=== PATIENT | female | born 1950 | race Caucasian/White ===

== ENCOUNTER 2016-02-22 10:36 | Outpatient (RCR) | payer MEDICARE ==
[~2016-02-22 10:36] MED LIST: ALB0.5V IH; ALBU0.8322 IH; ALBU17AE23 IH; ALBU17AE3 IH; ALPR0.25 PO; ALPR0.5T PO; ASP81CT PO; ASPI-875 PO; ATOR10TA66 PO; ATOR20TA66 PO; ATR20T PO; ATRV10T PO; Atorvastatin Calcium PO; BUDE1AMP IH; CALCIUM 600MG PO; CHOL100061 PO; CIPR500T78 PO; CLOP75TA PO; DESV50TA PO; DICY20TA10 PC; DICY20TA10 PO; DXCC100C PO; GUAI10SY4 PO; HYDROXYTRYPTOPHAN PO; IPRA3AMP IH; IPRA3AMP11 INH; ISM30TCR PO; ISOS60TA3 PO; LEVO500T2 PO; LEVO500T80 PO; METH4TAB PO; METO25TA2 PO; MONT10TA24 PO; NCT21TD TD; NTR.4SL SL; OMG1KC PO; OXYB5TAB9 PO; PNT40TEC PO; PRD20T PO; PRED5TAB PO; RT-SYMBINH IH
== END 2016-05-22 | disposition home or self-care (01) ==
LOC: PULM 10:36
PROVIDERS: ATTEND Nurse Practitioner Family
DX: J44.9 Chronic obstructive pulmonary disease, unspecified (principal); R09.02 Hypoxemia
CPT/HCPCS: 99211

== ENCOUNTER → 2016-05-05 | Outpatient (CLI) | payer MEDICARE ==
[~2016-05-05] MED LIST changes: +ASCO-262 PO; +CETI10TA17 PO; +CLON0.2T PO; +DESV100T PO; +DONE10TA41 PO; +FERR-84 PO; +FOLI0.4T2 PO; +LORA0.5T PO; +MAGN250T13 PO; +PANT40TA2 PO; +PRD10T PO
--- NOTE | 2016-05-05 18:18 | Diagnostic Imaging Report ---
PA and lateral views of the chest. INDICATION: Chronic shortness of breath. Mid back pain. FINDINGS: The lungs are hyperinflated but clear. The heart size is normal. No effusion or pneumothorax. The mediastinum and chris appear unremarkable. IMPRESSION: Hyperinflated clear lungs. Dictated by: Dictated on workstation # [id number]
== END ==
LOC: RAD 14:07
PROVIDERS: ATTEND Nurse Practitioner Family
DX: J44.9 Chronic obstructive pulmonary disease, unspecified (principal); J40 Bronchitis, not specified as acute or chronic; R06.02 Shortness of breath; Z72.0 Tobacco use
CPT/HCPCS: 71020; 87804

== ENCOUNTER → 2016-05-24 | Outpatient (CLI) | payer MEDICARE ==
--- NOTE | 2016-05-26 19:03 | Diagnostic Imaging Report ---
Bilateral screening mammogram The current study was also evaluated with a Computer Aided Detection (CAD) system. INDICATION: Screening. No current complaints stated on the questionnaire. COMPARISON: 05/21/2013. FINDINGS: The breasts are composed of heterogenously dense parenchyma which may decrease mammographic sensitivity. There are occasional benign-appearing calcifications seen. Allowing for technique and positional differences, no suspicious change is seen. IMPRESSION: Dense breasts with no definite change. ACR BI-RADS Category 2: Benign findings. Result letter will be mailed to the patient. Note: At least 10% of breast cancer is not imaged by mammography. Dictated by: Dictated on workstation # [id number]
== END ==
LOC: RAD 11:23
PROVIDERS: ATTEND Nurse Practitioner Community Health
DX: Z12.31 Encounter for screening mammogram for malignant neoplasm of breast (principal)
CPT/HCPCS: 77067

== ENCOUNTER 2016-06-29 11:29 | Outpatient (RCR) | payer MEDICARE ==
[~2016-06-29 11:29] MED LIST changes: -ASCO-262 PO; -CETI10TA17 PO; -CLON0.2T PO; -DESV100T PO; -DONE10TA41 PO; -FERR-84 PO; -FOLI0.4T2 PO; -LORA0.5T PO; -MAGN250T13 PO; -PANT40TA2 PO; -PRD10T PO
[2016-06-29 11:48] LABS: BASOPHILS # (AUTO) 0.1 10^3/uL (0.0-0.1); BASOPHILS % (AUTO) 1 % (0-10); EOSINOPHILS # (AUTO) 0.2 10^3/uL (0.0-0.3); EOSINOPHILS % (AUTO) 2 % (0-10); LYMPHOCYTES # (AUTO) 0.7 X 10^3 (1.0-4.0); LYMPHOCYTES % (AUTO) 5 % (12-44); MEAN CORPUSCULAR HEMOGLOBIN 23 PG (25-34); MEAN CORPUSCULAR HGB CONC 30 G/DL (32-36); MEAN CORPUSCULAR VOLUME 78 FL (80-99); MEAN PLATELET VOLUME 8.4 FL (7.4-10.4); MONOCYTES # (AUTO) 0.8 X 10^3 (0.0-1.0); MONOCYTES % (AUTO) 5 % (0-12); NEUTROPHILS # (AUTO) 12.8 X 10^3 (1.8-7.8); NEUTROPHILS % (AUTO) 88 % (42-75); PLATELET COUNT 566 10^3/uL (130-400); RED BLOOD COUNT 3.67 10^6/uL (4.35-5.85); WHITE BLOOD COUNT 14.6 10^3/uL (4.3-11.0)
[2016-06-29 12:09] LABS: ALANINE AMINOTRANSFERASE 15 U/L (0-55); ALBUMIN 3.9 G/DL (3.2-4.5); ANION GAP 12 MMOL/L (5-14); ASPARTATE AMINO TRANSFERASE 18 U/L (5-34); BILIRUBIN,TOTAL 0.2 MG/DL (0.1-1.0); BLOOD UREA NITROGEN 14 MG/DL (7-18); BUN/CREATININE RATIO 20; CALCIUM 9.4 MG/DL (8.5-10.1); CARBON DIOXIDE 22 MMOL/L (21-32); CHLORIDE 101 MMOL/L (98-107); CREATININE SERUM 0.71 MG/DL (0.60-1.30); GFR ESTIMATED > 60; GLUCOSE 108 MG/DL (70-105); POTASSIUM 4.1 MMOL/L (3.6-5.0); SODIUM 135 MMOL/L (135-145); TOTAL PROTEIN 6.7 G/DL (6.4-8.2)
[2016-06-29 12:11] LABS: ANISOCYTOSIS SLIGHT; BAND NEUTROPHILS 0 %; BASOPHILS % (MANUAL) 0 %; EOSINOPHILS % (MANUAL) 3 %; LYMPHOCYTES % (MANUAL) 5 %; NEUTROPHILS % (MANUAL) 85 %
--- NOTE | 2016-06-29 14:42 | Diagnostic Imaging Report ---
INDICATION: COPD, hypoxemia, history of tobacco use.. TECHNIQUE: Two view chest 12:12 PM. CORRELATION STUDY: 05/05/2016. FINDINGS: The heart size, mediastinal configuration, and pulmonary vasculature are within normal limits. The lung morgan are hyperinflated with changes of COPD. No infiltrate. Very mild S-type curvature of the thoracic spine. IMPRESSION: Hyperinflated lung morgan. Negative for acute abnormality. Dictated by: Dictated on workstation # [id number]
[2016-07-28] MEDS ORDERED: ASCO-262 PO (15:53)
[2016-07-28] MEDS ORDERED: DONE10TA41 PO (15:53)
[2016-07-28] MEDS ORDERED: CLON0.2T PO (15:53)
[2016-07-28] MEDS ORDERED: MONT10TA24 PO (15:53)
[2016-07-28] MEDS ORDERED: PRD10T PO (15:53)
[2016-07-28] MEDS ORDERED: MAGN250T13 PO (15:53)
[2016-07-28] MEDS ORDERED: FOLI0.4T2 PO (15:53)
[2016-07-28] MEDS ORDERED: LORA0.5T PO (15:53)
[2016-07-28] MEDS ORDERED: DESV100T PO (15:53)
[2016-07-28] MEDS ORDERED: FERR-84 PO (15:53)
[2016-07-28] MEDS ORDERED: CETI10TA17 PO (15:53)
[2016-08-01] MEDS ORDERED: PANT40TA2 PO (08:27)
== END 2016-09-27 | disposition home or self-care (01) ==
LOC: LAB 11:29
PROVIDERS: ATTEND Nurse Practitioner Family
DX: J44.9 Chronic obstructive pulmonary disease, unspecified (principal); R09.02 Hypoxemia; R06.00 Dyspnea, unspecified; Z72.0 Tobacco use
CPT/HCPCS: 36415; 71020; 80053; 85007; 85027; 87070; 87205

== ENCOUNTER 2016-07-28 05:49 | Outpatient (CLI) | payer MEDICARE ==
[~2016-07-28] VITALS: Ht 160 cm; Wt 59.0 kg
[2016-07-28] MEDS ORDERED: FERR-84 PO (15:53)
[2016-07-28] MEDS ORDERED: FOLI0.4T2 PO (15:53)
[2016-07-28] MEDS ORDERED: LORA0.5T PO (15:53)
[2016-07-28] MEDS ORDERED: MAGN250T13 PO (15:53)
[2016-07-28] MEDS ORDERED: ASCO-262 PO (15:53)
[2016-07-28] MEDS ORDERED: DONE10TA41 PO (15:53)
[2016-07-28] MEDS ORDERED: DESV100T PO (15:53)
[2016-07-28] MEDS ORDERED: PRD10T PO (15:53)
[2016-07-28] MEDS ORDERED: CETI10TA17 PO (15:53)
[2016-07-28] MEDS ORDERED: CLON0.2T PO (15:53)
[2016-07-28] MEDS ORDERED: MONT10TA24 PO (15:53)
== END 2016-07-28 15:54 ==
LOC: PREOP 05:49
PROVIDERS: ATTEND Surgery
DX: Z01.818 Encounter for other preprocedural examination (principal); D50.9 Iron deficiency anemia, unspecified; K92.1 Melena

== ENCOUNTER 2016-08-01 07:08 | Day surgery (SDC) | payer MEDICARE ==
[~2016-08-01] VITALS: Ht 160 cm; Wt 59.0 kg
[~2016-08-01 07:08] MED LIST changes: +ASCO-262 PO; +CETI10TA17 PO; +CLON0.2T PO; +DESV100T PO; +DONE10TA41 PO; +FERR-84 PO; +FOLI0.4T2 PO; +LORA0.5T PO; +MAGN250T13 PO; +PRD10T PO
[2016-08-01] MEDS ORDERED: NS IV 500 ML 500 ML ONE (07:20)
[2016-08-01 07:25] VITALS: BP 95/70
[2016-08-01] MEDS ORDERED: NALOXONE 0.4 MG/ML 1 ML (NARCAN) VIAL IVP PRN (07:30)
[2016-08-01] MEDS ORDERED: NS IV 500 ML 500 ML IV ONE (07:30)
[2016-08-01] MEDS ORDERED: FLUMAZENIL (ROMAZICON) 0.1 MG/ML 5 ML VIAL INJ PRN (07:30)
[2016-08-01] MEDS ORDERED: fentaNYL INJECTION 100 MCG/2 ML AMP ONE ×2 (07:48)
[2016-08-01] MEDS ORDERED: HURRICAINE EXT TUBE (BENZOCAINE) ONE (07:49)
[2016-08-01] MEDS ORDERED: MIDAZOLAM 2 MG/2 ML (VERSED) VIAL ONE ×7 (07:49→07:58)
[2016-08-01] MEDS: fentaNYL INJECTION 100 MCG/2 ML AMP IVP PRN ×4 (07:53→08:14)
[2016-08-01] MEDS: MIDAZOLAM 2 MG/2 ML (VERSED) VIAL IVP PRN ×5 (07:54→08:13)
--- NOTE | 2016-08-01 07:55 | Conscious Sedation/ASA ---
Conscious Sedation Pre-Proced ASA Class: 3 Airway Mallampati Classification: ([place] appropriate class) I. II. III, IV Lungs Heart ASA score ASA 1: a normal healthy patient ASA 2: a patient with a mild systemic disease (mid diabetes, controlled hypertension, obesity ASA 3: a patient with a severe systemic disease that limits activity (angina , COPD, prior Myocardial infarction) ASA 4: a patient with an incapacitating disease that is a constant threat to life (CHF, renal failure) ASA 5: a moribund patient not expected to survive 24 hrs. (ruptured aneurysm) ASA 6: a declared brain patient whose organs are being harvested. For emergent operations, add the letter E after the classification Grade 2 Sedation Plan: Discussed options with patient/fam Note The patient is an appropriate candidate to undergo the planned procedure, sedation, and anesthesia. The patient immediately re-assessed prior to indication. DANYA GAO MD Aug 01, 2016 7:55 am
--- NOTE | 2016-08-01 08:25 | Endoscopy Procedure Report ---
Endoscopy Report Date: Aug 01, 2016 Preoperative Diagnosis: anemia. He medication. Personal history of polyps Study Performed: Upper Endoscopy, Colonoscopy Procedure Instrument: Endoscope Endo Procedure/Findings Findings 1.: Diverticulosis, Hiatal Hernia, Gastric Ulcer, Gastritis Recommendations: Recommendations: 1.: Colonscopy in 5 years Copy Copies To 1: ANA FISCHER XAVIER M MD Aug 01, 2016 8:25 am
[2016-08-01] MEDS ORDERED: PANT40TA2 PO (08:27)
--- NOTE | 2016-08-01 08:28 | Discharge Inst-Simple/Standard ---
Discharge Inst-Standard Discharge Medications New, Converted or Re-Newed RX: RX on Chart Patient Instructions/Follow Up Plan of Care/Instructions/FU: follow-up with her primary. To avoid nonsteroidals. Screening colonoscopy in 5 years Activity as Tolerated: Yes Discharge Diet: No Restrictions DANYA GAO MD Aug 01, 2016 8:28 am
[2016-08-01] MEDS ORDERED: HURRICAINE EXT TUBE (BENZOCAINE) XX ONE (08:45)
[2016-08-01 08:50] VITALS: BP 116/72
[2016-08-01 09:20] VITALS: BP 107/73
[2016-08-01 09:25] VITALS: BP 107/73
--- NOTE | 2016-08-01 10:20 | OPERATIVE REPORT ---
PROCEDURE PHYSICIAN: DANYA GAO DATE OF PROCEDURE: 08/01/2016 PROCEDURES: 1. Upper GI endoscopy with antral biopsy. 2. Colonoscopy. SURGEON: Dr. Gao. INDICATION FOR THE PROCEDURE: This lady came in for an upper endoscopy, along with colonoscopy, to evaluate iron deficiency anemia with hematochezia. In addition, she has a personal history of colon polyps as well. Informed consent was obtained after reviewing the procedures in detail. DESCRIPTION OF PROCEDURE: 1. UPPER GI ENDOSCOPY/ANTRAL BIOPSY: She was placed in left lateral decubitus position and her vital signs were monitored. Conscious sedation was achieved using Versed and fentanyl. The flexible gastroscope was then introduced down the esophagus, past the stomach, into the proximal duodenum. FINDINGS: ESOPHAGUS: An uncomplicated hiatal hernia. STOMACH: 1. Multiple distal gastric ulcers and erosions with surrounding erythema were found. Photodocumentation and biopsy for Helicobacter status were obtained. 2. Distal gastritis in a streaky fashion was also discovered. DUODENUM: Normal. She tolerated the procedure well and was turned around in preparation for colonoscopy. IMPRESSION: 1. Heme-positive stools with iron deficiency anemia. 2. Multiple gastric ulcers and erosions. 2. COLONOSCOPY: Digital rectal examination was unremarkable. The colonoscope was then introduced into the rectum and advanced all the way up to the cecum. The quality of bowel preparation was excellent. The scope was then withdrawn slowly and the mucosa examined in a systematic fashion. FINDINGS: 1. Very few sigmoid diverticula. 2. No recurrent polyps were found. She tolerated the procedures well and was taken back to the nursing area in a stable condition. IMPRESSION: 1. Iron deficiency anemia. 2. Multiple gastric ulcers and erosions. We will treat conservatively. With regard to polyp surveillance, screening colonoscopy in 5 years would be reasonable. Job ID: [id number] Dictated Date: 08/01/2016 08:23:59 Disbursing Officer Date: 08/01/2016 10:10:47 / hari SANTIAGO
== END 2016-08-01 09:25 | disposition home or self-care (01) ==
LOC: ENDO 07:08
PROVIDERS: ATTEND Surgery
DX: K25.9 Gastric ulcer, unspecified as acute or chronic, without hemorrhage or perforation (principal); K57.90 Diverticulosis of intestine, part unspecified, without perforation or abscess without bleeding; K44.9 Diaphragmatic hernia without obstruction or gangrene; K29.70 Gastritis, unspecified, without bleeding; D50.9 Iron deficiency anemia, unspecified; Z86.010 Personal history of colon polyps
CPT/HCPCS: 88305

== ENCOUNTER → 2016-09-02 | Outpatient (CLI) | payer MEDICARE ==
[~2016-09-02] MED LIST changes: +CATHETER FLUSH 10 ML SYR IV PRN; +IOHEXOL 350 MG/ML 100 ML (OMNIPAQUE 350) VIAL IV ONE; +NS 100 ML (IVPB) BAG IV ONE; +PANT40TA2 PO
--- NOTE | 2016-09-02 08:48 | Diagnostic Imaging Report ---
PROCEDURE: CT abdomen and pelvis with contrast. TECHNIQUE: Multiple contiguous axial images were obtained through the abdomen and pelvis after administration of intravenous contrast. INDICATION: Left upper quadrant pain. 100 mL of Omnipaque 350 is administered intravenously. FINDINGS: The lung bases demonstrate no significant consolidation. The liver, the spleen, and the adrenals appear unremarkable. There is a 5-mm hypodense lesion in the pancreatic head also seen on 08/24/2015, exam too small to accurately characterize. Cholecystectomy clips are seen. The kidneys have symmetric enhancement and contrast excretion. Multiple simple-appearing cysts are seen. There is no hydronephrosis. The abdominal aorta is normal in caliber. No para-aortic significantly enlarged lymph node is seen. There is no significant free fluid or fluid collection in the abdomen or pelvis. There is suggestion of prior hysterectomy. The appendix appears normal. No bowel obstruction. There is diverticulosis in the sigmoid colon. No diverticulitis. Surgical clips in the right side of the pelvis are seen. The osseous structures demonstrate degenerative changes in the SI joints. IMPRESSION: 1. Diverticulosis, no diverticulitis. 2. A 5-mm hypodense lesion in the pancreatic head too small to accurately characterize. When correlated with 08/24/2015, exam it appears to be present although less prominent, possibly representing a small cystic lesion. Consider followup study in six months to observe this lesion. Dictated by: Dictated on workstation # [id number]
== END ==
LOC: RAD 07:52
PROVIDERS: ATTEND Nurse Practitioner Community Health
DX: R10.12 Left upper quadrant pain (principal); J44.9 Chronic obstructive pulmonary disease, unspecified; D50.9 Iron deficiency anemia, unspecified; K57.30 Diverticulosis of large intestine without perforation or abscess without bleeding; K86.89 Other specified diseases of pancreas
CPT/HCPCS: 74177

== ENCOUNTER → 2016-09-23 | Outpatient (CLI) | payer MEDICARE ==
[~2016-09-23] MED LIST changes: -CATHETER FLUSH 10 ML SYR IV PRN; -IOHEXOL 350 MG/ML 100 ML (OMNIPAQUE 350) VIAL IV ONE; -NS 100 ML (IVPB) BAG IV ONE
--- NOTE | 2016-09-23 16:03 | Diagnostic Imaging Report ---
INDICATION: Shortness of breath, exacerbation of COPD. EXAMINATION: PA and lateral chest. FINDINGS: There are emphysematous changes in the lungs. Heart size and pulmonary vascularity are normal. Lungs are clear. There are no effusions or pneumothoraces. IMPRESSION: No acute abnormalities of the chest. Dictated by: Dictated on workstation # [id number]
== END ==
LOC: RAD 12:41
PROVIDERS: ATTEND Nurse Practitioner Family
DX: J44.1 Chronic obstructive pulmonary disease with (acute) exacerbation (principal)
CPT/HCPCS: 71020

== ENCOUNTER → 2016-11-22 | Outpatient (CLI) | payer MEDICARE ==
--- NOTE | 2016-11-22 14:14 | Diagnostic Imaging Report ---
EXAMINATION: PA and lateral views of the chest. INDICATION: Bronchitis. Cough. FINDINGS: The lungs are clear. The heart size is normal. There is no effusion or pneumothorax. The mediastinum and chris appear unremarkable. IMPRESSION: Unremarkable exam. Dictated by: Dictated on workstation # [id number]
== END ==
LOC: RAD 12:31
PROVIDERS: ATTEND Nurse Practitioner Family
DX: R06.02 Shortness of breath (principal); R06.00 Dyspnea, unspecified; R09.02 Hypoxemia; J30.9 Allergic rhinitis, unspecified; Z72.0 Tobacco use
CPT/HCPCS: 71020

== ENCOUNTER → 2017-03-20 | Outpatient (CLI) | payer MEDICARE ==
[~2017-03-20] MED LIST changes: +CATHETER FLUSH 10 ML SYR IV PRN; +IOHEXOL 350 MG/ML 150 ML (OMNIPAQUE 350) VIAL IV ONE; +NS 100 ML (IVPB) BAG IV ONE
[2017-03-20 15:13] LABS: ABG BASE EXCESS 0.7 MMOL/L (-2.5-2.5); ABG HCO3 24 MMOL/L (23-27); ABG OXYGEN SATURATION 96 % (94-100); ABG PCO2 36 MMHG (35-45); ABG PH 7.45 (7.37-7.43); ABG PO2 67 MMHG (79-93); ABG TCO2 25.5 MMOL/L (21.0-31.0)
[2017-03-20 15:14] LABS: ALLENS TEST YES-POS; PATIENT TEMP 98.4
[2017-03-20 15:38] LABS: BLOOD UREA NITROGEN 8 MG/DL (7-18); BUN/CREATININE RATIO 12; CREATININE SERUM 0.68 MG/DL (0.60-1.30); GFR ESTIMATED > 60
--- NOTE | 2017-03-20 20:02 | Diagnostic Imaging Report ---
PROCEDURE: CT angiography of the chest with contrast. TECHNIQUE: Multiple contiguous axial images were obtained through the chest after uneventful bolus administration of intravenous contrast. Reconstructed CTA MIP acquisitions were also performed. INDICATION: Shortness of breath. Dyspnea. 125 mL of Omnipaque 350 is administered intravenously. FINDINGS: The pulmonary arteries demonstrate good opacification with contrast with no filling defects seen to suggest pulmonary embolism. The thoracic aorta is normal in caliber. No para-aortic significantly enlarged lymph node is seen. The heart size is normal. No pericardial or pleural effusion. There is no hilar, mediastinal, or axillary lymphadenopathy seen. The lungs demonstrate no significant consolidation, mass, or suspicious nodule. There are advanced emphysema changes seen. There is a right middle lobe large bulla measuring 4.7 cm in size. Sections of the upper abdomen appear grossly unremarkable. The osseous structures appear unremarkable. IMPRESSION: 1. Advanced emphysema. 2. No evidence of pulmonary embolism. Dictated by: Dictated on workstation # [id number]
== END ==
LOC: RAD 14:45
PROVIDERS: ATTEND Nurse Practitioner Family
DX: J43.9 Emphysema, unspecified (principal); J96.20 Acute and chronic respiratory failure, unspecified whether with hypoxia or hypercapnia; Z72.0 Tobacco use
CPT/HCPCS: 36415; 71275; 82565; 82805; 84520

== ENCOUNTER 2017-06-24 11:13 | Inpatient (IN) | payer MEDICARE ==
[~2017-06-24] VITALS: Ht 162.6 cm; Wt 66.8 kg
[~2017-06-24 11:13] MED LIST changes: -CATHETER FLUSH 10 ML SYR IV PRN; -IOHEXOL 350 MG/ML 150 ML (OMNIPAQUE 350) VIAL IV ONE; -NS 100 ML (IVPB) BAG IV ONE
[2017-06-24] MEDS ORDERED: RT-ALBUTEROL/IPRATROPIUM 3 ML (DUONEB) VIAL ONE ×2 (11:21→11:30)
[2017-06-24] MEDS ORDERED: LORazepam INJ 2 MG/ML (ATIVAN) VIAL ONE (11:27)
[2017-06-24] MEDS ORDERED: methylPREDNISolone 125 MG (Solu-MEDROL) VIAL IV STA (11:27)
[2017-06-24] MEDS ORDERED: methylPREDNISolone 125 MG (Solu-MEDROL) VIAL ONE (11:28)
[2017-06-24] MEDS ORDERED: RT-ALBUTEROL SULF 2.5 MG/3 ML PRE-MIX VIAL ONE ×2 (11:29→11:35)
[2017-06-24] MEDS ORDERED: RT-ALBUTEROL/IPRATROPIUM 3 ML (DUONEB) VIAL INH ONE ×2 (11:30→12:00)
[2017-06-24] MEDS ORDERED: LORazepam INJ 2 MG/ML (ATIVAN) VIAL IVP ONE (11:30)
[2017-06-24 11:45] LABS: BASOPHILS # (AUTO) 0.1 10^3/uL (0.0-0.1); BASOPHILS % (AUTO) 0 % (0-10); EOSINOPHILS # (AUTO) 0.1 10^3/uL (0.0-0.3); EOSINOPHILS % (AUTO) 1 % (0-10); HEMATOCRIT 37 % (35-52); HEMOGLOBIN 12.1 G/DL (11.5-16.0); LYMPHOCYTES % (AUTO) 6 % (12-44); MEAN CORPUSCULAR HEMOGLOBIN 27 PG (25-34); MEAN CORPUSCULAR HGB CONC 33 G/DL (32-36); MEAN CORPUSCULAR VOLUME 83 FL (80-99); MEAN PLATELET VOLUME 8.9 FL (7.4-10.4); MONOCYTES # (AUTO) 1.8 X 10^3 (0.0-1.0); MONOCYTES % (AUTO) 10 % (0-12); NEUTROPHILS # (AUTO) 14.5 X 10^3 (1.8-7.8); NEUTROPHILS % (AUTO) 83 % (42-75); PLATELET COUNT 442 10^3/uL (130-400); RED BLOOD COUNT 4.46 10^6/uL (4.35-5.85); RED CELL DISTRIBUTION WIDTH 19.2 % (10.0-14.5); WHITE BLOOD COUNT 17.5 10^3/uL (4.3-11.0)
[2017-06-24 11:49] LABS: PROTHROMBIN TIME PATIENT 13.1 SEC (12.2-14.7)
[2017-06-24 11:57] LABS: ALANINE AMINOTRANSFERASE 13 U/L (0-55); ALBUMIN 3.9 GM/DL (3.2-4.5); ALKALINE PHOSPHATASE 64 U/L (40-136); BILIRUBIN,TOTAL 0.2 MG/DL (0.1-1.0); BUN/CREATININE RATIO 16; CALCIUM 8.7 MG/DL (8.5-10.1); CARBON DIOXIDE 22 MMOL/L (21-32); CHLORIDE 98 MMOL/L (98-107); CREATINE KINASE 49 U/L (29-168); GFR ESTIMATED > 60; GLUCOSE 111 MG/DL (70-105); MAGNESIUM 1.8 MG/DL (1.8-2.4); POTASSIUM 3.9 MMOL/L (3.6-5.0); SODIUM 130 MMOL/L (135-145); TOTAL PROTEIN 6.5 GM/DL (6.4-8.2)
[2017-06-24 11:59] LABS: ABG OXYGEN SATURATION 85 % (94-100); ABG PCO2 41 MMHG (35-45); ABG PH 7.41 (7.37-7.43); ABG PO2 54 MMHG (79-93); ABG TCO2 25.8 MMOL/L (21.0-31.0)
[2017-06-24 12:00] LABS: ALLENS TEST POSITIVE; INSPIRED O2 BIPAP 30%; PATIENT TEMP 102.6; VENTILATOR NO
[2017-06-24] MEDS ORDERED: RT-ALBUTEROL SULF 2.5 MG/3 ML PRE-MIX VIAL INH ONE (12:00)
--- NOTE | 2017-06-24 12:01 | Diagnostic Imaging Report ---
INDICATION: Shortness of breath. Comparison: 11/22/2016 Findings: Upright portable view of the chest is obtained. Heart size is normal. The pulmonary vessels appear unremarkable. There is no pneumothorax, mediastinal widening or pleural fluid. Lungs are clear. Impression: No acute abnormality is detected. Dictated by: Dictated on workstation # [id number]
[2017-06-24 12:04] VITALS: BP 129/80
[2017-06-24] MEDS ORDERED: ACETAMINOPHEN 500 MG TAB (TYLENOL) PO ONE (12:15)
[2017-06-24] MEDS ORDERED: CEFEPIME INJECTION 2,000 MG in NS (IVPB) 100 ML IV ONE (12:15)
[2017-06-24] MEDS ORDERED: IBUPROFEN 800 MG (MOTRIN) TAB PO ONE (12:15)
[2017-06-24 12:17] LABS: CREATINE KINASE MB 1.7 NG/ML (<6.6); TSH (THYROID ANALYZER) 0.64 UIU/ML (0.35-4.94)
[2017-06-24 12:58] LABS: ABG BASE EXCESS 0.6 MMOL/L (-2.5-2.5); ABG OXYGEN SATURATION 90 % (94-100); ABG PCO2 42 MMHG (35-45); ABG PH 7.39 (7.37-7.43); ABG PO2 62 MMHG (79-93)
[2017-06-24 12:59] LABS: NEUTROPHILS % (MANUAL) 93 %
[2017-06-24 13:00] LABS: EOSINOPHILS % (MANUAL) 3 %; LYMPHOCYTES % (MANUAL) 2 %; MONOCYTES % (MANUAL) 2 %; RBC MORPH NORMAL
[2017-06-24 13:02] LABS: ALLENS TEST POSITIVE; INSPIRED O2 50% BIPAP; VENTILATOR NO
[2017-06-24 13:03] LABS: PATIENT TEMP 100.9
--- NOTE | 2017-06-24 13:28 | ED Respiratory ---
General Chief Complaint: Respiratory Problems Stated Complaint: ACUTE RESPIRATORY FAILURE, COPD Nursing Triage Note: Pt. daughter advises that the patient began experiencing shortness of breath last night that has become progressively worse. Pt. has a hx. of COPD and wears home 02. Source: patient (LIMITED HISTORIAN DUE TO SHORTNESS OF BREATH), family ( DAUGHTER DOES MOST OF TALKING FOR PT, ALSO GIVES INFORMATION) Exam Limitations: clinical condition History of Present Illness Date Seen by Provider: Jun 24, 2017 Time Seen by Provider: 11:27 Initial Comments PT ARRIVES VIA POV FROM HOME PT WITH COPD, AND DAUGHTER STATES "IT'S BEEN PRETTY BAD LATELY--FOR THE LAST SEVERAL MONTHS" PT HAS HAD PRODUCTIVE COUGH WITH COLORED SPUTUM FOR OVER A WEEK PT HAS HAD INCREASED SHORTNESS OF BREATH THIS WEEK AND ESPECIALLY SINCE LAST NIGHT, AND SHE WOKE HER UP AT 0500 THIS AM DUE TO PROBLEMS BREATHING PT HAD TEMP OF 102.6 ON ARRIVAL, SHE AND FAMILY WERE UNAWARE THAT SHE HAD FEVER NO SWELLING IN LEGS/ FEET OR PAIN IN CALVES PT STILL SMOKES 1-2 PPD PT IS ON DAILY PREDNISONE FOR COPD PT IS ALSO ON HOME O2 AT 2L/NC PT HAS NEVER BEEN ON VENTILATOR PT USED NEBULIZER AROUND 0500 TODAY PT WAS ON ANTIBIOTICS LAST WEEK FOR UTI, NAME UNKNOWN, FINISHED A FEW DAYS AGO PCP: DR. YORK, SYSTEMS INTEGRATION MANAGER CASEY SIMPSON AT [facility] SCIENCE WRITER: DR. GILL Allergies and Home Medications Allergies Coded Allergies: tramadol (Unverified Allergy, Mild, 07/08/13) Penicillins (Verified Allergy, Unknown, 07/08/13) Sulfa (Sulfonamide Antibiotics) (Verified Allergy, Unknown, 07/08/13) sumatriptan (Verified Allergy, Unknown, 07/08/13) Home Medications Albuterol 17 Gm Inh, 2 PUFF IH QID PRN for SHORTNESS OF BREATH, (Reported) NEEDED FOR SHORTNESS OF BREATH Albuterol Sulfate 2.5 Mg/0.5 Ml Vial.neb, 2.5 MG IH Q4H PRN for SHORTNESS OF BREATH Prescribed by: LEIGH TORRES on 03/16/15 0819 Albuterol/Ipratropium 3 Ml Nebu, 3 ML INH RTQ4HR Prescribed by: TARIQ CERRATO on 07/09/13 1239 Ascorbate Calcium 500 Mg Tablet, 500 MG PO DAILY, (Reported) Aspirin 81 Mg Tablet.dr, 81 MG PO HS, (Reported) Budesonide/Formoterol Fumarate 1 Puff Puff, 2 PUFF IH RTBID Prescribed by: TARIQ CERRATO on 07/09/13 1239 Cetirizine HCl 10 Mg Tablet, 10 MG PO DAILY, (Reported) Clonidine HCl 0.2 Mg Tablet, 0.2 MG PO DAILY, (Reported) Clopidogrel Bisulfate 75 Mg Tablet, 75 MG PO DAILY, (Reported) Desvenlafaxine Succinate 100 Mg Tab.er.24h, 100 MG PO DAILY, (Reported) Donepezil HCl 10 Mg Tablet, 10 MG PO DAILY, (Reported) Ferrous Sulfate 325 Mg Tablet, 650 MG PO DAILY, (Reported) take 2 (325mg) tabs Folic Acid 0.4 Mg Tablet, 0.4 MG PO DAILY, (Reported) Ipratropium/Albuterol Sulfate 3 Ml Ampul.neb, 3 ML IH Q8H PRN for SHORTNESS OF BREATH Prescribed by: LEIGH TORRES on 03/16/15 0819 Isosorbide Mononitrate 30 Mg Tablet, 30 MG PO DAILY, (Reported) Lorazepam 0.5 Mg Tablet, 0.5 MG PO BID, (Reported) Magnesium Oxide 250 Mg Tablet, 250 MG PO BID, (Reported) Metoprolol Tartrate 25 Mg Tablet, 25 MG PO BID, (Reported) Montelukast Sodium 10 Mg Tablet, 10 MG PO HS, (Reported) Nitroglycerin 0.4 Mg Subl, 0.4 MG SL UD PRN for CHEST PAIN, (Reported) TAKE 1 TABLET NEEDED FOR CHEST PAIN EVERY 5 MIN X 3 DOSES Pantoprazole Sodium 40 Mg Tablet.dr, 40 MG PO DAILY Prescribed by: DANYA GAO on 08/01/16 0827 Prednisone 10 Mg Tab, 10 MG PO DAILY, (Reported) Constitutional: see HPI, malaise, weakness EENTM: no symptoms reported Respiratory: see HPI, cough, dyspnea on exertion, phlegm, short of breath Cardiovascular: no symptoms reported, No chest pain, No edema, No palpitations , No syncope Gastrointestinal: no symptoms reported Genitourinary: no symptoms reported Musculoskeletal: no symptoms reported Skin: no symptoms reported Psychiatric/Neurological: No Symptoms Reported Hematologic/Lymphatic: No Symptoms Reported Immunological/Allergic: no symptoms reported Past Mcrtivp-Imsspo-Vyrqjy Hx Patient Social History Alcohol Use: Denies Use Recreational Drug Use: No Smoking Status: Current Everyday Smoker (1-2 PPD) Type Used: Cigarettes (1-2 PPD) Recent Foreign Travel: No Contact w/Someone Who Travel: No Recent Infectious Disease Expo: No Recent Hopitalizations: No Physical Abuse: No Sexual Abuse: No Immunizations Up To Date Date of Pneumonia Vaccine: Oct 08, 2002 Seasonal Allergies Seasonal Allergies: Yes Surgeries History of Surgeries: Yes Surgeries: Adenoidectomy, Breast, Cardiac, Coronary Stent, Hysterectomy, Oophorectomy, Tonsillectomy Respiratory Respiratory Disorders: Asthma, Chronic Bronchitis, COPD Currently Using CPAP: No Currently Using BIPAP: No Cardiovascular Cardiac Disorders: Coronary Artery Disease Neurological Neurological Disorders: Headaches /Migraines Reproductive System [place] History: Hysterectomy, Menopausal Genitourinary Genitourinary Disorders: Polycystic Kidney Disease Gastrointestinal Gastrointestinal Disorders: Gastroesophageal Reflux, Diverticulosis Musculoskeletal Musculoskeletal Disorders: Arthritis Psychosocial Behavioral Health Disorders: Anxiety Suicide Risk Score: 0 Integumentary Skin/Integumentary Disorders: Eczema Blood Transfusions Adverse Reaction to a Blood Tr: No Physical Exam Vital Signs Vital Signs - First Documented 06/24/17 06/24/17 11:15 11:47 Temp 102.6 Pulse 144 Resp 30 B/P (MAP) 113/72 (86) Pulse Ox 94 O2 Delivery Nasal Cannula O2 Flow Rate 3.00 FiO2 100 Capillary Refill : Less Than 3 Seconds General Appearance: severe distress Neck: normal inspection Respiratory: respiratory distress, decreased breath sounds, accessory muscle use, other (ESSENTIALLY NO AIR MOVEMENT ON ARRIVAL . 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, no motor/sensory deficits, alert, oriented x 3, other (ANXIOUS ) Skin: warm/dry, pallor Focused Exam Evaluation Lactate Level Laboratory Tests 06/24/17 11:22: Lactic Acid Level 0.99 Lactic Acid Level Laboratory Tests Test 06/24/17 11:22 Lactic Acid Level 0.99 MMOL/L (0.50-2.00) Progress/Results/Core Measures Suspected Sepsis Recent Fever Within 48 Hours: Yes Infection Criteria Present: Documented Infection New/Unexplained Altered Menta: No Sepsis Screen: Possible Sepsis Risk Sepsis Diagnosis: SIRS Temperature:102.2 Pulse: 140 Respiratory Rate: 24 Laboratory Tests 06/24/17 11:22: White Blood Count 17.5H Blood Pressure 129 /80 Mean: 86 Laboratory Tests 06/24/17 11:22: Lactic Acid Level 0.99 Laboratory Tests 06/24/17 11:22: Creatinine 0.70, INR Comment 1.0, Platelet Count 442H, Total Bilirubin 0.2 Results/Orders Lab Results Laboratory Tests Test 06/24/17 11:22 06/24/17 11:50 Range/Units White Blood Count 17.5 H 4.3-11.0 10^3/uL Red Blood Count 4.46 4.35-5.85 10^6/uL Hemoglobin 12.1 11.5-16.0 G/DL Hematocrit 37 35-52 % Mean Corpuscular Volume 83 80-99 FL Mean Corpuscular Hemoglobin 27 25-34 PG Mean Corpuscular Hemoglobin Concent 33 32-36 G/DL Red Cell Distribution Width 19.2 H 10.0-14.5 % Platelet Count 442 H 130-400 10^3/uL Mean Platelet Volume 8.9 7.4-10.4 FL Neutrophils (%) (Auto) 83 H 42-75 % Lymphocytes (%) (Auto) 6 L 12-44 % Monocytes (%) (Auto) 10 0-12 % Eosinophils (%) (Auto) 1 0-10 % Basophils (%) (Auto) 0 0-10 % Neutrophils # (Auto) 14.5 H 1.8-7.8 X 10^3 Lymphocytes # (Auto) 1.0 1.0-4.0 X 10^3 Monocytes # (Auto) 1.8 H 0.0-1.0 X 10^3 Eosinophils # (Auto) 0.1 0.0-0.3 10^3/uL Basophils # (Auto) 0.1 0.0-0.1 10^3/uL Neutrophils % (Manual) 93 % Lymphocytes % (Manual) 2 % Monocytes % (Manual) 2 % Eosinophils % (Manual) 3 % Band Neutrophils % Blood Morphology Comment NORMAL Prothrombin Time 13.1 12.2-14.7 SEC INR Comment 1.0 0.8-1.4 Activated Partial Thromboplast Time 27 24-35 SEC Sodium Level 130 L 135-145 MMOL/L Potassium Level 3.9 3.6-5.0 MMOL/L Chloride Level 98 98-107 MMOL/L Carbon Dioxide Level 22 21-32 MMOL/L Anion Gap 10 5-14 MMOL/L Blood Urea Nitrogen 11 7-18 MG/DL Creatinine 0.70 0.60-1.30 MG/DL Estimat Glomerular Filtration Rate > 60 BUN/Creatinine Ratio 16 Glucose Level 111 H 70-105 MG/DL Lactic Acid Level 0.99 0.50-2.00 MMOL/L Calcium Level 8.7 8.5-10.1 MG/DL Magnesium Level 1.8 1.8-2.4 MG/DL Total Bilirubin 0.2 0.1-1.0 MG/DL Aspartate Amino Transf (AST/SGOT) 18 5-34 U/L Alanine Aminotransferase (ALT/SGPT) 13 0-55 U/L Alkaline Phosphatase 64 40-136 U/L Total Creatine Kinase 49 29-168 U/L Creatine Kinase MB 1.7 <6.6 NG/ML Troponin I < 0.30 <0.30 NG/ML B-Type Natriuretic Peptide 17.8 <100.0 PG/ML Total Protein 6.5 6.4-8.2 GM/DL Albumin 3.9 3.2-4.5 GM/DL TSH Sandoval Testing 0.64 0.35-4.94 UIU/ML Blood Gas Puncture Site LEFT RADIAL Blood Gas Patient Temperature 102.6 Arterial Blood pH 7.41 7.37-7.43 Arterial Blood Partial Pressure CO2 41 35-45 MMHG Arterial Blood Partial Pressure O2 54 L 79-93 MMHG Arterial Blood HCO3 25 23-27 MMOL/L Arterial Blood Total CO2 25.8 21.0-31.0 MMOL/L Arterial Blood Oxygen Saturation 85 L 94-100 % Arterial Blood Base Excess 1.0 -2.5-2.5 MMOL/L John Test POSITIVE Blood Gas Ventilator Setting NO Blood Gas Inspired Oxygen BIPAP 30% Micro Results Microbiology 06/24/17 Influenza Types A,B Antigen (MARINO) - Final, Complete My Orders Orders - CHERYLE CONNOLLY K DO Albuterol/Ipra Inhalation Soln (Duoneb I (06/24/17 11:21) Lorazepam Injection (Ativan Injection) (06/24/17 11:27) Methylprednisolone Sod Succ (Solu-Medrol (06/24/17 11:28) Albuterol Pre-Mix Nebs (Rt) (Proventil (06/24/17 11:29) Albuterol/Ipra Inhalation Soln (Duoneb I (06/24/17 11:30) Saline Lock/Iv-Start (06/24/17) Ekg Tracing (06/24/17) Catheter(Urinary) Insert & Ass 03,15 (06/24/17:) O2 (06/24/17:) Monitor-Rhythm Ecg Trace Only (06/24/17) Arterial Blood Gas (06/24/17) BNP (06/24/17) Cbc With Automated Diff (06/24/17) Comprehensive Metabolic Panel (06/24/17) Creatine Kinase (06/24/17) Creatine Kinase Mb (06/24/17) Lactic Acid Analyzer (06/24/17) Magnesium (06/24/17) Protime With Inr (06/24/17) Partial Thromboplastin Time (06/24/17) Thyroid Analyzer (06/24/17) Troponin I (06/24/17) Ua Culture If Indicated (06/24/17) Blood Culture (06/24/17) Influenza A And B Antigens (06/24/17) Chest 1 View, Ap/Pa Only (06/24/17) Albuterol/Ipra Inhalation Soln (Duoneb I (06/24/17 11:30) Rt Request For Service (06/24/17 11:27) Methylprednisolone Sod Succ (Solu-Medrol (06/24/17 11:27) Svn Sm Volume Nebulizer Rt-Rfs (06/24/17 11:27) Lorazepam Injection (Ativan Injection) (06/24/17 11:30) Albuterol Pre-Mix Nebs (Rt) (Proventil (06/24/17 11:35) Albuterol/Ipra Inhalation Soln (Duoneb I (06/24/17 12:00) Svn Sm Volume Nebulizer Rt-Rfs (06/24/17 11:59) Albuterol Pre-Mix Nebs (Rt) (Proventil (06/24/17 12:00) Svn Sm Volume Nebulizer Rt-Rfs (06/24/17 11:59) Manual Differential (06/24/17 11:22) Acetaminophen Tablet (Tylenol Tablet) (06/24/17 12:15) Ibuprofen Tablet (Motrin Tablet) (06/24/17 12:15) Cefepime Injection (Maxipime Injection) (06/24/17 12:15) Medications Given in ED Current Medications Medications Dose Ordered Sig/Tyrone Route Start Time Stop Time Status Last Admin Dose Admin Acetaminophen 1,000 mg ONCE ONCE PO 06/24/17 12:15 06/24/17 12:22 DC 06/24/17 12:36 1,000 MG Albuterol Sulfate 7.5 mg ONCE ONCE INH 06/24/17 12:00 06/24/17 12:02 DC 06/24/17 12:04 7.5 MG Albuterol/ Ipratropium 3 ml ONCE ONCE INH 06/24/17 11:30 06/24/17 11:38 DC 06/24/17 12:04 3 ML Albuterol/ Ipratropium 6 ml ONCE ONCE INH 06/24/17 12:00 06/24/17 12:02 DC 06/24/17 12:02 6 ML Cefepime HCl 2000 mg/Sodium Chloride 100 ml @ 200 mls/hr ONCE ONCE IV 06/24/17 12:15 06/24/17 12:44 DC 06/24/17 12:36 200 MLS/HR Ibuprofen 800 mg ONCE ONCE PO 06/24/17 12:15 06/24/17 12:22 DC 06/24/17 12:36 800 MG Vital Signs/I&O Vital Sign - Last 12Hours 06/24/17 06/24/17 06/24/17 11:15 11:47 12:04 Temp 102.6 Pulse 144 140 Resp 30 24 B/P (MAP) 113/72 (86) Pulse Ox 94 96 97 O2 Delivery Nasal Cannula Nasal Cannula O2 Flow Rate 3.00 3.00 30.00 FiO2 100 Capillary Refill : Less Than 3 Seconds Blood Pressure Mean: 86 Departure Departure-Patient Inst. Referrals: CASEY SIMPSON (PCP/Family) Primary Care Physician CHERYLE CONNOLLY DO Jun 24, 2017 13:28
[2017-06-24 13:45] VITALS: BP 125/67
[2017-06-24] MEDS ORDERED: ACETAMINOPHEN 500 MG TAB (TYLENOL) PO PRN (14:15)
[2017-06-24] MEDS ORDERED: IBUPROFEN 800 MG (MOTRIN) TAB PO PRN (14:15)
[2017-06-24] MEDS: AZITHROMYCIN 500 MG/NS 250 ML IVPB IV SCH ×2 (15:12)
[2017-06-24] MEDS ORDERED: RT-ALBUTEROL/IPRATROPIUM 3 ML (DUONEB) VIAL INH PRN (15:15)
[2017-06-24] MEDS: methylPREDNISolone 125 MG (Solu-MEDROL) VIAL IV SCH (17:22)
[2017-06-24] MEDS: RT-ALBUTEROL/IPRATROPIUM 3 ML (DUONEB) VIAL INH SCH ×2 (19:29→21:58)
[2017-06-24 19:30] VITALS: BP 125/67
[2017-06-24 20:00] VITALS: BP 125/67
[2017-06-24] MEDS: CEFEPIME 2 GM/NS 100 ML IVPB IV SCH ×2 (20:27)
[2017-06-24 21:58] VITALS: BP 125/67
[2017-06-25] VITALS (8 sets, daily range): BP systolic 98–121; BP diastolic 54–90
[2017-06-25] MEDS: CATHETER FLUSH 10 ML SYR IV SCH ×3 (00:19→14:43)
[2017-06-25] MEDS: methylPREDNISolone 125 MG (Solu-MEDROL) VIAL IV SCH ×2 (00:19→05:28)
[2017-06-25] MEDS: RT-ALBUTEROL/IPRATROPIUM 3 ML (DUONEB) VIAL INH SCH ×6 (01:27→22:05)
[2017-06-25] MEDS: LORazepam INJ 2 MG/ML (ATIVAN) VIAL IV PRN ×4 (03:51→20:22)
[2017-06-25 04:38] LABS: BASOPHILS % (AUTO) 0 % (0-10); EOSINOPHILS % (AUTO) 0 % (0-10); HEMATOCRIT 38 % (35-52); HEMOGLOBIN 12.3 G/DL (11.5-16.0); LYMPHOCYTES # (AUTO) 0.3 X 10^3 (1.0-4.0); LYMPHOCYTES % (AUTO) 3 % (12-44); MEAN CORPUSCULAR HEMOGLOBIN 27 PG (25-34); MEAN CORPUSCULAR HGB CONC 32 G/DL (32-36); MEAN CORPUSCULAR VOLUME 84 FL (80-99); MEAN PLATELET VOLUME 9.3 FL (7.4-10.4); MONOCYTES # (AUTO) 0.1 X 10^3 (0.0-1.0); MONOCYTES % (AUTO) 1 % (0-12); NEUTROPHILS % (AUTO) 96 % (42-75); PLATELET COUNT 425 10^3/uL (130-400); RED BLOOD COUNT 4.56 10^6/uL (4.35-5.85); RED CELL DISTRIBUTION WIDTH 19.1 % (10.0-14.5); WHITE BLOOD COUNT 10.4 10^3/uL (4.3-11.0)
[2017-06-25 05:09] LABS: ALANINE AMINOTRANSFERASE 16 U/L (0-55); ALBUMIN 3.9 GM/DL (3.2-4.5); ALKALINE PHOSPHATASE 58 U/L (40-136); BILIRUBIN,TOTAL 0.3 MG/DL (0.1-1.0); BUN/CREATININE RATIO 19; CALCIUM 9.3 MG/DL (8.5-10.1); CARBON DIOXIDE 22 MMOL/L (21-32); CHLORIDE 103 MMOL/L (98-107); CREATININE SERUM 0.69 MG/DL (0.60-1.30); GFR ESTIMATED > 60; GLUCOSE 147 MG/DL (70-105); POTASSIUM 4.4 MMOL/L (3.6-5.0); SODIUM 136 MMOL/L (135-145); TOTAL PROTEIN 6.7 GM/DL (6.4-8.2)
[2017-06-25] MEDS: CEFEPIME 2 GM/NS 100 ML IVPB IV SCH ×4 (08:42→21:29)
[2017-06-25] MEDS: NICOTINE PATCH REMOVAL TP SCH (09:21)
[2017-06-25] MEDS: NICOTINE 21 MG (NICODERM) PATCH TD SCH (09:22)
--- NOTE | 2017-06-25 09:50 | Diagnostic Imaging Report ---
EXAM: CHEST 1 VIEW, AP/PA ONLY INDICATION: Respiratory failure. COPD. COMPARISON: Chest radiograph 06/24/2017. FINDINGS: Normal heart size and pulmonary vascularity. No focal pulmonary opacity, pleural effusion or pneumothorax. No acute osseous findings. IMPRESSION: No acute cardiopulmonary findings. Dictated by: Dictated on workstation # [id number]
--- OUTSIDE RECORDS SUMMARY | 2017-06-25 09:51 | XMS REPORT ---
Author Author WALTER BOND [facility] Address [address] [place] [address] Care Team Providers Care Planning Official Name Role Phone WALTER BOND Unavailable PROBLEMS Type Condition ICD9-CM Code [id number] Code Onset Dates Condition Status SNOMED Code Problem Anxiety F41.9 Active 89063131 Problem Chronic obstructive pulmonary disease with acute exacerbation J44.1 Active 209275964 Problem Nicotine abuse Z72.0 Active 93057716 Problem Essential hypertension I10 Active 05182087 Problem Supplemental oxygen dependent Z99.81 Active 279834757083 Problem CAD (coronary artery disease) 414.00 Active 58497635 Problem Other iron deficiency anemia D50.8 Active 72109007 Problem Reactive depression F32.9 Active 73031041 Problem Memory loss R41.3 Active 58108607 Problem Pulmonary emphysema, unspecified emphysema type J43.9 Active 52923291 Problem Other emphysema J43.8 Active 45110552 Problem Irritable bowel syndrome with diarrhea K58.0 Active 143534489 ALLERGIES Substance Reaction Event Type Date Status Ultram Unknown Drug Allergy May, Active Sulfamethoxazole-Trimethoprim Unknown Drug Allergy May, Active Penicillin V Potassium Unknown Drug Allergy May, Active Imitrex Unknown Drug Allergy May, Active Effexor Xr 75 Mg Capsule,extended Release 24hr Unknown Non Drug Allergy May, Active Lipitor 20 Mg Tablet muscle aches Non Drug Allergy May, Active SOCIAL HISTORY Never Assessed PLAN OF CARE Activity Details Follow Up 1 Week Reason:Anxiety, depression VITAL SIGNS MEDICATIONS Unknown Medications RESULTS No Results PROCEDURES Procedure Date Ordered Result Body Site Psych diagnostic evaluation, new patient Jun 08, 2016 IMMUNIZATIONS No Known Immunizations MEDICAL (GENERAL) HISTORY Type Description Date Medical History IBS Medical History Polycystic Kidney Diseasse Medical History hypertension Medical History Cardiac Stent x1 Medical History COPD Medical History hyperlipidemia Medical History Supplemental oxygen dependent Surgical History hysterectomy Surgical History breast biopsy x 5 Surgical History scar tissue removal Surgical History Upper and lower GI scope Hospitalization History surgeries Hospitalization History cardiac and copd Hospitalization History ER visit for bronchitis 04-26-15
--- OUTSIDE RECORDS SUMMARY | 2017-06-25 09:51 | XMS REPORT ---
Author Author CASEY SIMPSON [facility] Address [address] [place] [address] Care Team Providers Care Boatbuilder Supervisor Name Role Phone CASEY SIMPSON Unavailable PROBLEMS Type Condition ICD9-CM Code [id number] Code Onset Dates Condition Status SNOMED Code Problem Anxiety F41.9 Active 28238454 Problem Chronic obstructive pulmonary disease with acute exacerbation J44.1 Active 649642047 Problem Nicotine abuse Z72.0 Active 67416741 Problem Essential hypertension I10 Active 55851888 Problem Supplemental oxygen dependent Z99.81 Active 971870860633 Problem CAD (coronary artery disease) 414.00 Active 14374709 Problem Other iron deficiency anemia D50.8 Active 10626203 Problem Reactive depression F32.9 Active 78656647 Problem Memory loss R41.3 Active 42056722 Problem Pulmonary emphysema, unspecified emphysema type J43.9 Active 84348084 Problem Other emphysema J43.8 Active 10665413 Problem Irritable bowel syndrome with diarrhea K58.0 Active 459304745 ALLERGIES Substance Reaction Event Type Date Status Ultram Unknown Drug Allergy Jun, Active Sulfamethoxazole-Trimethoprim Unknown Drug Allergy Jun, Active Penicillin V Potassium Unknown Drug Allergy Jun, Active Imitrex Unknown Drug Allergy Jun, Active Effexor Xr 75 Mg Capsule,extended Release 24hr Unknown Non Drug Allergy Jun, Active Lipitor 20 Mg Tablet muscle aches Non Drug Allergy Jun, Active SOCIAL HISTORY Never Assessed PLAN OF CARE Activity Details Follow Up 4 Weeks Reason:smoking cessation VITAL SIGNS Height 63 in 2016-07-06 Weight 135.9 lbs 2016-07-06 Temperature 98.8 degrees Fahrenheit 2016-07-06 Heart Rate 108 bpm 2016-07-06 Respiratory Rate 24 2016-07-06 Oximetry 98 % 2016-07-06 BMI 24.07 kg/m2 2016-07-06 Blood pressure systolic 114 mmHg 2016-07-06 Blood pressure diastolic 62 mmHg 2016-07-06 MEDICATIONS Medication Instructions Dosage Frequency Start Date End Date Duration Status Pristiq 100 MG TAKE ONE TABLET BY MOUTH DAILY Active Ferrous Sulfate 325 (65 Fe) MG Orally Once a day for 10 days then bid 1 tablet Jun, 30 day(s) Active Plavix 75 mg take 1 tablet (75 mg) by oral route once daily Sep, Active PredniSONE (Yuriy) Active Isosorbide Mononitrate CR 30 MG TAKE ONE TABLET BY MOUTH IN THE MORNING 90 Active Vitamin D3 1,000 unit take 1 Tablet by Oral route 1 time per day take one tablet orally daily Jun, Active Singulair 10 MG Orally Once a day 1 tablet in the evening 24h Active Oxygen Active Albuterol Sulfate 1.25 mg/3 mL inhale 3 milliliters via nebulizer by Inhalation route 4 times per day PRN as needed Dec, Active Ativan 0.5 MG Orally 2 times a day 1 tablet 12h Jun, 28 days Active Metoprolol Tartrate 25 mg take 1 tablet (25 mg) by oral route 2 times per day Sep, Active Aspirin 81 mg take 1 tablet (81 mg) by oral route once daily Sep, Active Clonidine HCl 0.2 MG Orally Twice a day 1 tablet 12h 30 days Active Symbicort 160-4.5 mcg/actuation inhale 2 puffs by inhalation route 2 times per day in the morning and evening Jul, Active Chantix Starting Month Yuriy 0.5 MG X 11 & 1 MG X 42 Orally 2 times a day 0.5mg daily X 3 days, 0.5mg bid X 4 days , 1 mg 12h Jun, Jul, 28 days Active Levofloxacin 500 MG Orally Once a day 1 tablet 24h Active Ibuprofen Sep, Active ZyrTEC Active Aricept 10 MG Orally Once a day 1 tablet 24h Active Ipratropium-Albuterol 0.5-2.5 (3) MG/3ML Inhalation Four times a day 3 ml 6h Active RESULTS No Results PROCEDURES Procedure Date Ordered Result Body Site MEASURE BLOOD OXYGEN LEVEL July 06, 2016 [facility] VISIT ESTABLISHED PATIENT July 06, 2016 IMMUNIZATIONS No Known Immunizations MEDICAL (GENERAL) [...]
--- OUTSIDE RECORDS SUMMARY | 2017-06-25 09:52 | XMS REPORT ---
Author Author CASEY SIMPSON [facility] Address [address] [place] [address] Care Team Providers Care Central Office Trouble Shooter Name Role Phone CASEY SIMPSON Unavailable PROBLEMS Type Condition ICD9-CM Code [id number] Code Onset Dates Condition Status SNOMED Code Problem Anxiety F41.9 Active 27909363 Problem Chronic obstructive pulmonary disease with acute exacerbation J44.1 Active 845317468 Problem Nicotine abuse Z72.0 Active 85773033 Problem Essential hypertension I10 Active 02050256 Problem Supplemental oxygen dependent Z99.81 Active 940089117366 Problem CAD (coronary artery disease) 414.00 Active 07074152 Problem Other iron deficiency anemia D50.8 Active 59104237 Problem Reactive depression F32.9 Active 36843174 Problem Memory loss R41.3 Active 69342734 Problem Pulmonary emphysema, unspecified emphysema type J43.9 Active 69026206 Problem Other emphysema J43.8 Active 03913785 Problem Irritable bowel syndrome with diarrhea K58.0 Active 409224678 ALLERGIES Substance Reaction Event Type Date Status Ultram Unknown Drug Allergy August, Active Sulfamethoxazole-Trimethoprim Unknown Drug Allergy August, Active Penicillin V Potassium Unknown Drug Allergy August, Active Imitrex Unknown Drug Allergy August, Active Effexor Xr 75 Mg Capsule,extended Release 24hr Unknown Non Drug Allergy August, Active Lipitor 20 Mg Tablet muscle aches Non Drug Allergy August, Active SOCIAL HISTORY Never Assessed PLAN OF CARE Activity Details Follow Up 4 Weeks Reason:anemia VITAL SIGNS Height 63 in 2016-08-24 Weight 133.1 lbs 2016-08-24 Temperature 97.5 degrees Fahrenheit 2016-08-24 Heart Rate 120 bpm 2016-08-24 Respiratory Rate 22 2016-08-24 BMI 23.58 kg/m2 2016-08-24 Blood pressure systolic 124 mmHg 2016-08-24 Blood pressure diastolic 76 mmHg 2016-08-24 MEDICATIONS Medication Instructions Dosage Frequency Start Date End Date Duration Status Magnesium 250 MG Orally twice a day 1 tablet with a meal 12h Active Nitroglycerin 0.4 MG Active Ipratropium-Albuterol 0.5-2.5 (3) MG/3ML Inhalation Four times a day 3 ml 6h Active Proventil 17gm by inhalation route 4 times a day 2 puffs 6h Active Plavix 75 mg take 1 tablet (75 mg) by oral route once daily Sep, Active Aspirin 81 mg take 1 tablet (81 mg) by oral route once daily Sep, Active Ativan 1 MG Orally 2 times a day 1 tablet 12h Jun, 28 days Active Vitamin D3 1,000 unit take 1 Tablet by Oral route 1 time per day take one tablet orally daily Jun, Active Symbicort 160-4.5 mcg/actuation inhale 2 puffs by inhalation route 2 times per day in the morning and evening Jul, Active Vitamin C 500 MG Active Cetirizine HCl 10 MG Orally Once a day 1 tablet 24h Active Clonidine HCl 0.2 MG Orally Twice a day 1 tablet 12h 30 days Active Oxygen Active Albuterol Sulfate 1.25 mg/3 mL inhale 3 milliliters via nebulizer by Inhalation route 4 times per day PRN as needed Dec, Active Isosorbide Mononitrate CR 30 MG TAKE ONE TABLET BY MOUTH IN THE MORNING 90 Active Aricept 10 MG Orally Once a day 1 tablet 24h 90 Active Pantoprazole Sodium 40 MG Orally Once a day 1 tablet 24h Active Singulair 10 MG Orally Once a day 1 tablet in the evening 24h Active Mucinex 600 MG Orally every 12 hrs 1 tablet as needed 12h Active PredniSONE (Yuriy) Active Folic Acid 0.8 mg Orally Once a day 1/2 tablet 24h Active ZyrTEC Active Metoprolol Tartrate 25 mg take 1 tablet (25 mg) by oral route 2 times per day Sep, Active Ferrous Sulfate 325 (65 Fe) MG Orally Once a day for 10 days then bid 1 tablet Jun, 30 day(s) Active Pristiq 100 MG TAKE ONE TABLET BY MOUTH DAILY 90 Active RESULTS Name Result Date Reference Range CBC 2016-08-24 WBC 10.6 3.4-10.8 RBC 3.92 3.77-5.28 Hemoglobin 10.8 11.1-15.9 Hematocrit 35.1 34.0-46.6 MCV 90 79-97 MCH 27.6 26.6-33.0 MCHC 30.8 31.5-35.7 RDW 20.5 12.3-15.4 Platelets 370 150-379 Neutrophils 65 Lymphs 20 Monocytes 8 Eos 5 Basos 1 Neutrophils (Absolute) 6.9 1.4-7.0 Lymphs (Absolute) 2.1 0.7-3.1 Monocytes(Absolute) 0.9 0.1-0.9 Eos (Absolute) 0.6 0.0-0.4 Baso (Absolute) 0.1 0.0-0.2 Immature Granulocytes 1 Immature Grans (Abs) 0.1 0.0-0.1 CMP 2016-08-24 Glucose, Serum 109 65-99 BUN 10 8-27 Creatinine, Serum 0.65 0.57-1.00 eGFR If NonAfricn Am 93 >59 eGFR If Africn Am 108 >59 BUN/Creatinine Ratio 15 12-28 Sodium, Serum 139 134-144 Potassium, Serum 4.1 3.5-5.2 Chloride, Serum 96 96-106 Carbon Dioxide, Total 26 18-29 Calcium, Serum 9.5 8.7-10.3 Protein, Total, Serum 6.2 6.0-8.5 Albumin, Serum 4.2 3.6-4.8 Globulin, Total 2.0 1.5-4.5 A/G Ratio 2.1 1.2-2.2 Bilirubin, Total <0.2 0.0-1.2 Alkaline Phosphatase, S 64 39-117 AST (SGOT) 16 0-40 ALT (SGPT) 11 0-32 CT Scan : Abdomen & Pelvis w/ Contrast 2016-08-30 PROCEDURES Procedure Date Ordered Result Body Site [facility] VEN[facility]UN[facility], ROUTINE* August 24, 2016 [facility] VISIT ESTABLISHED PATIENT August 24, 2016 IMMUNIZATIONS No Known Immunizations MEDICAL (GENERAL) [...]
--- OUTSIDE RECORDS SUMMARY | 2017-06-25 09:52 | XMS REPORT ---
Author Author CASEY SIMPSON [facility] Address [address] [place] [address] Care Team Providers Care Professional Fee Coder Name Role Phone CASEY SIMPSON Unavailable PROBLEMS Type Condition ICD9-CM Code [id number] Code Onset Dates Condition Status SNOMED Code Problem Anxiety F41.9 Active 18353642 Problem Chronic obstructive pulmonary disease with acute exacerbation J44.1 Active 110809147 Problem Nicotine abuse Z72.0 Active 86229560 Problem Essential hypertension I10 Active 68117172 Problem Supplemental oxygen dependent Z99.81 Active 093189336009 Problem CAD (coronary artery disease) 414.00 Active 46587778 Problem Other iron deficiency anemia D50.8 Active 66943598 Problem Reactive depression F32.9 Active 15506895 Problem Memory loss R41.3 Active 22964287 Problem Pulmonary emphysema, unspecified emphysema type J43.9 Active 22988972 Problem Other emphysema J43.8 Active 24635036 Problem Irritable bowel syndrome with diarrhea K58.0 Active 534833233 ALLERGIES No Information SOCIAL HISTORY Never Assessed PLAN OF CARE VITAL SIGNS MEDICATIONS Unknown Medications RESULTS No Results PROCEDURES No Known procedures IMMUNIZATIONS No Known Immunizations MEDICAL (GENERAL) HISTORY [...]
--- OUTSIDE RECORDS SUMMARY | 2017-06-25 09:52 | XMS REPORT ---
Author Author SHANA YORK [facility] Address [address] [place] [address] Care Team Providers Care Tube Station Attendant Name Role Phone SHANA YORK Unavailable PROBLEMS Type Condition ICD9-CM Code [id number] Code Onset Dates Condition Status SNOMED Code Problem Anxiety F41.9 Active 09530085 Problem Chronic obstructive pulmonary disease with acute exacerbation J44.1 Active 099716482 Problem Nicotine abuse Z72.0 Active 67980379 Problem Essential hypertension I10 Active 16718949 Problem Supplemental oxygen dependent Z99.81 Active 323388179900 Problem CAD (coronary artery disease) 414.00 Active 18284042 Problem Other iron deficiency anemia D50.8 Active 10099177 Problem Reactive depression F32.9 Active 07265770 Problem Memory loss R41.3 Active 93496885 Problem Pulmonary emphysema, unspecified emphysema type J43.9 Active 80357311 Problem Other emphysema J43.8 Active 39491508 Problem Irritable bowel syndrome with diarrhea K58.0 Active 328763564 ALLERGIES No Information SOCIAL HISTORY Never Assessed PLAN OF CARE VITAL SIGNS MEDICATIONS Unknown Medications RESULTS Name Result Date Reference Range ANEMIA PANEL 2016-07-01 Iron Bind.Cap.(TIBC) 377 250-450 UIBC 363 118-369 Iron, Serum 14 27-139 Iron Saturation 4 15-55 Ferritin, Serum 15 15-150 Vitamin B12 392 211-946 Folate (Folic Acid), Serum 18.0 >3.0 WBC 13.0 3.4-10.8 RBC 3.40 3.77-5.28 Hemoglobin 7.8 11.1-15.9 Hematocrit 25.6 34.0-46.6 MCV 75 79-97 MCH 22.9 26.6-33.0 MCHC 30.5 31.5-35.7 RDW 15.9 12.3-15.4 Platelets 647 150-379 Neutrophils 89 Lymphs 8 Monocytes 1 Eos 1 Basos 1 Immature Cells Neutrophils (Absolute) 11.6 1.4-7.0 Lymphs (Absolute) 1.0 0.7-3.1 Monocytes(Absolute) 0.1 0.1-0.9 Eos (Absolute) 0.1 0.0-0.4 Baso (Absolute) 0.1 0.0-0.2 Immature Granulocytes Immature Grans (Abs) Hematology Comments: Note: Reticulocyte Count 2.3 0.6-2.6 PROCEDURES Procedure Date Ordered Result Body Site [facility] VENIPUNCT, ROUTINE* July 01, 2016 IMMUNIZATIONS No Known Immunizations MEDICAL (GENERAL) [...] copd Hospitalization History ER visit for bronchitis 16
--- OUTSIDE RECORDS SUMMARY | 2017-06-25 09:52 | XMS REPORT ---
Author Author CASEY SIMPSON [facility] Address [address] [place] [address] Care Team Providers Care Fuel Cell Designer Name Role Phone CASEY SIMPSON Unavailable PROBLEMS Type Condition ICD9-CM Code [id number] Code Onset Dates Condition Status SNOMED Code Problem Anxiety F41.9 Active 24896456 Problem Chronic obstructive pulmonary disease with acute exacerbation J44.1 Active 701240240 Problem Nicotine abuse Z72.0 Active 02830265 Problem Essential hypertension I10 Active 26764457 Problem Supplemental oxygen dependent Z99.81 Active 801705651379 Problem CAD (coronary artery disease) 414.00 Active 33849410 Problem Other iron deficiency anemia D50.8 Active 52867144 Problem Reactive depression F32.9 Active 03708749 Problem Memory loss R41.3 Active 80025953 Problem Pulmonary emphysema, unspecified emphysema type J43.9 Active 86539130 Problem Other emphysema J43.8 Active 13121011 Problem Irritable bowel syndrome with diarrhea K58.0 Active 639247559 ALLERGIES Substance Reaction Event Type Date Status [...] PLAN OF CARE Activity Details Follow Up 2 Weeks Reason:anxiety VITAL SIGNS Height 63 in 2016-06-13 Weight 133.7 lbs 2016-06-13 Temperature 98.0 degrees Fahrenheit 2016-06-13 Heart Rate 104 bpm 2016-06-13 Respiratory Rate 24 2016-06-13 Oximetry 96 % 2016-06-13 BMI 23.68 kg/m2 2016-06-13 Blood pressure systolic 111 mmHg 2016-06-13 Blood pressure diastolic 70 mmHg 2016-06-13 MEDICATIONS Medication Instructions Dosage Frequency Start Date End Date Duration Status Albuterol Sulfate 1.25 mg/3 mL inhale 3 milliliters via nebulizer by Inhalation route 4 times per day PRN as needed Dec, Active Metoprolol Tartrate 25 mg take 1 tablet (25 mg) by oral route 2 times per day Sep, Active Spiriva Respimat 2.5 MCG/ACT Inhalation Once a day per Dr Sadler 1 puff Apr, Active Symbicort 160-4.5 mcg/actuation inhale 2 puffs by inhalation route 2 times per day in the morning and evening Jul, Active Ipratropium-Albuterol 0.5-2.5 (3) MG/3ML Inhalation Four times a day 3 ml 6h Active Singulair 10 MG Orally Once a day 1 tablet in the evening 24h Active Plavix 75 mg take 1 tablet (75 mg) by oral route once daily Sep, Active Pristiq 100 MG TAKE ONE TABLET BY MOUTH DAILY Active NitroQuick Active ZyrTEC Active Nasonex 50 MCG/ACT Nasally Once a day 2 sprays in each nostril 24h Active Clonidine HCl 0.2 MG Orally Twice a day 1 tablet 12h 30 Active Ibuprofen Sep, Active Levofloxacin 500 MG Orally Once a day 1 tablet 24h Active Vitamin D3 1,000 unit take 1 Tablet by Oral route 1 time per day take one tablet orally daily Jun, Active Oxygen Active Aricept 10 MG Orally Once a day 1 tablet 24h Active Isosorbide Mononitrate CR 30 MG TAKE ONE TABLET BY MOUTH IN THE MORNING 90 Active Aspirin 81 mg take 1 tablet (81 mg) by oral route once daily Sep, Active Oxybutynin Chloride 5 MG 1 tablet by Oral route 2 times per day Mar Active RESULTS No Results PROCEDURES Procedure Date Ordered Result Body Site MEASURE BLOOD OXYGEN LEVEL Jun 13, 2016 [facility] VISIT ESTABLISHED PATIENT Jun 13, 2016 IMMUNIZATIONS No Known Immunizations MEDICAL (GENERAL) [...]
--- OUTSIDE RECORDS SUMMARY | 2017-06-25 09:52 | XMS REPORT ---
Author Author CASEY SIMPSON [facility] Address [address] [place] [address] Care Team Providers Care Drop Hammer Set Up Operator Name Role Phone CASEY SIMPSON Unavailable PROBLEMS Type Condition ICD9-CM Code [id number] Code Onset Dates Condition Status SNOMED Code Problem Anxiety F41.9 Active 02148051 Problem Chronic obstructive pulmonary disease with acute exacerbation J44.1 Active 434608820 Problem Nicotine abuse Z72.0 Active 19554423 Problem Essential hypertension I10 Active 30448705 Problem Supplemental oxygen dependent Z99.81 Active 412087180267 Problem CAD (coronary artery disease) 414.00 Active 51542567 Problem Other iron deficiency anemia D50.8 Active 41468287 Problem Reactive depression F32.9 Active 45481504 Problem Memory loss R41.3 Active 30413123 Problem Pulmonary emphysema, unspecified emphysema type J43.9 Active 85153799 Problem Other emphysema J43.8 Active 64689576 Problem Irritable bowel syndrome with diarrhea K58.0 Active 792411149 ALLERGIES Unknown Allergies SOCIAL HISTORY No smoking Hx information available PLAN OF CARE VITAL SIGNS MEDICATIONS Unknown Medications RESULTS No Results PROCEDURES No Known procedures IMMUNIZATIONS No Known Immunizations
--- OUTSIDE RECORDS SUMMARY | 2017-06-25 09:52 | XMS REPORT ---
Author Author CASEY SIMPSON [facility] Address [address] [place] [address] Care Team Providers Care Director Of Rooms Name Role Phone CASEY SIMPSON Unavailable PROBLEMS Type Condition ICD9-CM Code [id number] Code Onset Dates Condition Status SNOMED Code Problem Anxiety F41.9 Active 19884878 Problem Chronic obstructive pulmonary disease with acute exacerbation J44.1 Active 722851115 Problem Nicotine abuse Z72.0 Active 29140001 Problem Essential hypertension I10 Active 53004261 Problem Supplemental oxygen dependent Z99.81 Active 610286541047 Problem CAD (coronary artery disease) 414.00 Active 96506308 Problem Other iron deficiency anemia D50.8 Active 77741893 Problem Reactive depression F32.9 Active 95999022 Problem Memory loss R41.3 Active 52671349 Problem Pulmonary emphysema, unspecified emphysema type J43.9 Active 71817852 Problem Other emphysema J43.8 Active 88907258 Problem Irritable bowel syndrome with diarrhea K58.0 Active 505508096 ALLERGIES No Information SOCIAL HISTORY Never Assessed [...]
--- OUTSIDE RECORDS SUMMARY | 2017-06-25 09:53 | XMS REPORT ---
Author Author CASEY SIMPSON [facility] Address [address] [place] [address] Care Team Providers Care Fish Butcher Name Role Phone CASEY SIMPSON Unavailable PROBLEMS Type Condition ICD9-CM Code ENT86-FE Code Onset Dates Condition Status SNOMED Code Problem Anxiety F41.9 Active 85327718 Problem Chronic obstructive pulmonary disease with acute exacerbation J44.1 Active 823148541 Problem Nicotine abuse Z72.0 Active 55606721 Problem Essential hypertension I10 Active 61374978 Problem Supplemental oxygen dependent Z99.81 Active 445581353855 Problem CAD (coronary artery disease) 414.00 Active 33709461 Problem Other iron deficiency anemia D50.8 Active 21062524 Problem Reactive depression F32.9 Active 72218783 Problem Memory loss R41.3 Active 30669299 Problem Pulmonary emphysema, unspecified emphysema type J43.9 Active 98855977 Problem Other emphysema J43.8 Active 89194239 Problem Irritable bowel syndrome with diarrhea K58.0 Active 844996960 ALLERGIES Substance Reaction Event Type Date Status [...] PLAN OF CARE Activity Details Follow Up 3 Months Reason:COPD VITAL SIGNS Height 63 in 2016-05-18 Weight 130.6 lbs 2016-05-18 Temperature 98.2 degrees Fahrenheit 2016-05-18 Heart Rate 96 bpm 2016-05-18 Respiratory Rate 22 2016-05-18 Oximetry 96 % 2016-05-18 BMI 23.13 kg/m2 2016-05-18 Blood pressure systolic 110 mmHg 2016-05-18 Blood pressure diastolic 60 mmHg 2016-05-18 MEDICATIONS Medication Instructions Dosage Frequency Start Date End Date Duration Status Xanax 0.25 MG Orally 2 times a day 1 tablet as needed 12h 28 days Active Viberzi 75 MG Orally Twice a day 1 tablet with food 12h May, Nov, 30 days Active Prednisone 10 mg Oral once daily 1 tab 24h Active Ipratropium-Albuterol 0.5-2.5 (3) MG/3ML Inhalation Four times a day 3 ml 6h Active Pristiq 100 MG TAKE ONE TABLET BY MOUTH DAILY Active Aspirin 81 mg take 1 tablet (81 mg) by oral route once daily Sep, Active Clonidine HCl 0.1 MG Orally Twice a day 1 tablet 12h 30 Active Oxybutynin Chloride 5 MG 1 tablet by Oral route 2 times per day Mar Active Plavix 75 mg take 1 tablet (75 mg) by oral route once daily Sep, Active Ibuprofen Sep, Active Isosorbide Mononitrate CR 30 MG TAKE ONE TABLET BY MOUTH IN THE MORNING 90 Active Aricept 10 MG Orally Once a day 1 tablet 24h Active Nasonex 50 MCG/ACT Nasally Once a day 2 sprays in each nostril 24h Active Vitamin D3 1,000 unit take 1 Tablet by Oral route 1 time per day take one tablet orally daily Jun, Active Oxygen Active Metoprolol Tartrate 25 mg take 1 tablet (25 mg) by oral route 2 times per day Sep, Active PredniSONE (Yuriy) 5 MG Active ZyrTEC Active Singulair 10 MG Orally Once a day 1 tablet in the evening 24h Active Albuterol Sulfate 1.25 mg/3 mL inhale 3 milliliters via nebulizer by Inhalation route 4 times per day PRN as needed Dec, Active NitroQuick Active PredniSONE 20 MG Orally Once a day 2 tablet with food or milk 24h Active Dicyclomine HCl 20 mg Orally 4 times a day 1 tablet 6h Active Symbicort 160-4.5 mcg/actuation inhale 2 puffs by inhalation route 2 times per day in the morning and evening Jul, Active Nystatin 506976 UNIT/ML Mouth/Throat Four times a day 5 ml 6h May, May, 10 days Active Spiriva Respimat 2.5 MCG/ACT Inhalation Once a day per Dr Sadler 1 puff Apr, Active Levofloxacin 500 MG Orally Once a day 1 tablet 24h Active RESULTS Name Result Date Reference Range Mammogram, Bilateral Screening 2016-05-24 PROCEDURES Procedure Date Ordered Result Body Site MEASURE BLOOD OXYGEN LEVEL May 18, 2016 [facility] VISIT ESTABLISHED PATIENT May 18, 2016 IMMUNIZATIONS No Known Immunizations MEDICAL (GENERAL) [...]
--- OUTSIDE RECORDS SUMMARY | 2017-06-25 09:53 | XMS REPORT ---
Author Author CASEY SIMPSON [facility] Address [address] [place] [address] Care Team Providers Care Hr Recruiter Name Role Phone CASEY SIMPSON Unavailable PROBLEMS Type Condition ICD9-CM Code [id number] Code Onset Dates Condition Status SNOMED Code Problem Anxiety F41.9 Active 99638455 Problem Chronic obstructive pulmonary disease with acute exacerbation J44.1 Active 182769434 Problem Nicotine abuse Z72.0 Active 14621772 Problem Essential hypertension I10 Active 87731984 Problem Supplemental oxygen dependent Z99.81 Active 713883952289 Problem CAD (coronary artery disease) 414.00 Active 63382610 Problem Other iron deficiency anemia D50.8 Active 85407127 Problem Reactive depression F32.9 Active 41122891 Problem Memory loss R41.3 Active 94730012 Problem Pulmonary emphysema, unspecified emphysema type J43.9 Active 22521109 Problem Other emphysema J43.8 Active 24127637 Problem Irritable bowel syndrome with diarrhea K58.0 Active 590046559 ALLERGIES Substance Reaction Event Type Date Status Ultram Unknown Drug Allergy Jul, Active Sulfamethoxazole-Trimethoprim Unknown Drug Allergy Jul, Active Penicillin V Potassium Unknown Drug Allergy Jul, Active Imitrex Unknown Drug Allergy Jul, Active Effexor Xr 75 Mg Capsule,extended Release 24hr Unknown Non Drug Allergy Jul, Active Lipitor 20 Mg Tablet muscle aches Non Drug Allergy Jul, Active SOCIAL HISTORY Never Assessed PLAN OF CARE Activity Details Follow Up 3 Months Reason:anemia VITAL SIGNS Height 63 in 2016-08-03 Weight 135 lbs 2016-08-03 Temperature 97.9 degrees Fahrenheit 2016-08-03 Heart Rate 88 bpm 2016-08-03 Respiratory Rate 24 2016-08-03 BMI 23.91 kg/m2 2016-08-03 Blood pressure systolic 120 mmHg 2016-08-03 Blood pressure diastolic 80 mmHg 2016-08-03 MEDICATIONS Medication Instructions Dosage Frequency Start Date End Date Duration Status Singulair 10 MG Orally Once a day 1 tablet in the evening 24h Active Ferrous Sulfate 325 (65 Fe) MG Orally Once a day for 10 days then bid 1 tablet Jun, 30 day(s) Active Aspirin 81 mg take 1 tablet (81 mg) by oral route once daily Sep, Active Magnesium 250 MG Orally twice a day 1 tablet with a meal 12h Active Ativan 1 MG Orally 2 times a day 1 tablet 12h Jun, 28 days Active PredniSONE (Yuriy) Active Cetirizine HCl 10 MG Orally Once a day 1 tablet 24h Active Isosorbide Mononitrate CR 30 MG TAKE ONE TABLET BY MOUTH IN THE MORNING 90 Active Metoprolol Tartrate 25 mg take 1 tablet (25 mg) by oral route 2 times per day Sep, Active Folic Acid 0.8 mg Orally Once a day 1/2 tablet 24h Active Ipratropium-Albuterol 0.5-2.5 (3) MG/3ML Inhalation Four times a day 3 ml 6h Active Oxygen Active Vitamin D3 1,000 unit take 1 Tablet by Oral route 1 time per day take one tablet orally daily Jun, Active Plavix 75 mg take 1 tablet (75 mg) by oral route once daily Sep, Active Nitroglycerin 0.4 MG Active Pristiq 100 MG TAKE ONE TABLET BY MOUTH DAILY Active ZyrTEC Active Albuterol Sulfate 1.25 mg/3 mL inhale 3 milliliters via nebulizer by Inhalation route 4 times per day PRN as needed Dec, Active Aricept 10 MG Orally Once a day 1 tablet 24h 90 Active Proventil 17gm by inhalation route 4 times a day 2 puffs 6h Active Clonidine HCl 0.2 MG Orally Twice a day 1 tablet 12h 30 days Active Symbicort 160-4.5 mcg/actuation inhale 2 puffs by inhalation route 2 times per day in the morning and evening Jul, Active Mucinex 600 MG Orally every 12 hrs 1 tablet as needed 12h Active Pantoprazole Sodium 40 MG Orally Once a day 1 tablet 24h Active Vitamin C 500 MG Active RESULTS No Results PROCEDURES Procedure Date Ordered Result Body Site [facility] VISIT ESTABLISHED PATIENT August 03, 2016 IMMUNIZATIONS No Known Immunizations MEDICAL (GENERAL) [...]
--- OUTSIDE RECORDS SUMMARY | 2017-06-25 09:53 | XMS REPORT ---
Author Author MARY ELLEN MANUEL Organization [facility] Address [address] [place] [address] Care Team Providers Care Kitchen Designer Name Role Phone KALEB MARY ELLEN Unavailable PROBLEMS Type Condition ICD9-CM Code [id number] Code Onset Dates Condition Status SNOMED Code Problem Anxiety F41.9 Active 17672263 Problem Chronic obstructive pulmonary disease with acute exacerbation J44.1 Active 159283236 Problem Nicotine abuse Z72.0 Active 60767999 Problem Essential hypertension I10 Active 89384424 Problem Supplemental oxygen dependent Z99.81 Active 313082068586 Problem CAD (coronary artery disease) 414.00 Active 79105539 Problem Other iron deficiency anemia D50.8 Active 26103949 Problem Reactive depression F32.9 Active 46772122 Problem Memory loss R41.3 Active 99363042 Problem Pulmonary emphysema, unspecified emphysema type J43.9 Active 91416622 Problem Other emphysema J43.8 Active 62001767 Problem Irritable bowel syndrome with diarrhea K58.0 Active 478144905 ALLERGIES No Information SOCIAL HISTORY Never Assessed PLAN OF CARE VITAL SIGNS MEDICATIONS Medication Instructions Dosage Frequency Start Date End Date Duration Status Tamiflu 75 MG Orally Twice a day 1 capsule 12h May, May, 05 days Active RESULTS No Results PROCEDURES No Known procedures [...]
--- OUTSIDE RECORDS SUMMARY | 2017-06-25 09:53 | XMS REPORT ---
Author Author CASEY SIMPSON [facility] Address [address] [place] [address] Care Team Providers Care Dial Buffer Name Role Phone CASEY SIMPSON Unavailable PROBLEMS Type Condition ICD9-CM Code [id number] Code Onset Dates Condition Status SNOMED Code Problem Anxiety F41.9 Active 74467122 Problem Chronic obstructive pulmonary disease with acute exacerbation J44.1 Active 972595934 Problem Nicotine abuse Z72.0 Active 66984439 Problem Essential hypertension I10 Active 32702766 Problem Supplemental oxygen dependent Z99.81 Active 518352367468 Problem CAD (coronary artery disease) 414.00 Active 69251148 Problem Other iron deficiency anemia D50.8 Active 36845723 Problem Reactive depression F32.9 Active 62794627 Problem Memory loss R41.3 Active 40211746 Problem Pulmonary emphysema, unspecified emphysema type J43.9 Active 04072812 Problem Other emphysema J43.8 Active 88784026 Problem Irritable bowel syndrome with diarrhea K58.0 Active 570597380 ALLERGIES No Information SOCIAL HISTORY Never Assessed [...]
--- OUTSIDE RECORDS SUMMARY | 2017-06-25 09:54 | XMS REPORT ---
Author Author CASEY SIMPSON [facility] Address [address] [place] [address] Care Team Providers Care Senior Ui Designer Name Role Phone CASEY SIMPSON Unavailable PROBLEMS Type Condition ICD9-CM Code QZI34-SH Code Onset Dates Condition Status SNOMED Code Problem Anxiety F41.9 Active 96281216 Problem Chronic obstructive pulmonary disease with acute exacerbation J44.1 Active 916859816 Problem Nicotine abuse Z72.0 Active 93028012 Problem Essential hypertension I10 Active 88516215 Problem Supplemental oxygen dependent Z99.81 Active 785855465268 Problem CAD (coronary artery disease) 414.00 Active 54496316 Problem Other iron deficiency anemia D50.8 Active 63889462 Problem Reactive depression F32.9 Active 72645530 Problem Memory loss R41.3 Active 98549204 Problem Pulmonary emphysema, unspecified emphysema type J43.9 Active 04605425 Problem Other emphysema J43.8 Active 93406752 Problem Irritable bowel syndrome with diarrhea K58.0 Active 372437797 ALLERGIES Unknown Allergies SOCIAL HISTORY No smoking Hx information available PLAN OF CARE VITAL SIGNS MEDICATIONS Medication Instructions Dosage Frequency Start Date End Date Duration Status Xanax 0.25 MG Orally 2 times a day 1 tablet as needed 12h 28 days Active RESULTS No Results PROCEDURES No Known procedures IMMUNIZATIONS No Known Immunizations
--- OUTSIDE RECORDS SUMMARY | 2017-06-25 09:54 | XMS REPORT ---
Author Author WALTER BOND [facility] Address [address] [place] [address] Care Team Providers Care Service Administrator Name Role Phone WALTER BOND Unavailable PROBLEMS Type Condition ICD9-CM Code MSP25-DB Code Onset Dates Condition Status SNOMED Code Problem Anxiety F41.9 Active 77219695 Problem Chronic obstructive pulmonary disease with acute exacerbation J44.1 Active 533180649 Problem Nicotine abuse Z72.0 Active 76069496 Problem Essential hypertension I10 Active 26113929 Problem Supplemental oxygen dependent Z99.81 Active 568366701008 Problem CAD (coronary artery disease) 414.00 Active 57268799 Problem Other iron deficiency anemia D50.8 Active 87550514 Problem Reactive depression F32.9 Active 60227391 Problem Memory loss R41.3 Active 61183978 Problem Pulmonary emphysema, unspecified emphysema type J43.9 Active 32427085 Problem Other emphysema J43.8 Active 87908457 Problem Irritable bowel syndrome with diarrhea K58.0 Active 328024781 ALLERGIES No Information SOCIAL HISTORY Never Assessed PLAN OF CARE Activity Details Follow Up 2 Weeks Reason:Anxiety, depression VITAL SIGNS MEDICATIONS Unknown Medications RESULTS No Results PROCEDURES Procedure Date Ordered Result Body Site Psychotherapy, patient &/family, 45 minutes, established patient Jun 13, 2016 IMMUNIZATIONS No Known Immunizations [...]
--- OUTSIDE RECORDS SUMMARY | 2017-06-25 09:55 | XMS REPORT ---
Author Author WALTER BOND [facility] Address [address] [place] [address] Care Team Providers Care Implementation Services Analyst Name Role Phone WALTER BOND Unavailable PROBLEMS Type Condition ICD9-CM Code [id number] Code Onset Dates Condition Status SNOMED Code Problem Anxiety F41.9 Active 14214017 Problem Chronic obstructive pulmonary disease with acute exacerbation J44.1 Active 338088690 Problem Nicotine abuse Z72.0 Active 87237727 Problem Essential hypertension I10 Active 41346351 Problem Supplemental oxygen dependent Z99.81 Active 237188867321 Problem CAD (coronary artery disease) 414.00 Active 07014572 Problem Other iron deficiency anemia D50.8 Active 99014601 Problem Reactive depression F32.9 Active 92498100 Problem Memory loss R41.3 Active 47257728 Problem Pulmonary emphysema, unspecified emphysema type J43.9 Active 54199156 Problem Other emphysema J43.8 Active 69032222 Problem Irritable bowel syndrome with diarrhea K58.0 Active 420893208 ALLERGIES No Information SOCIAL HISTORY Never Assessed PLAN OF CARE Activity Details Follow Up 1 Week Reason:Anxiety, depression VITAL SIGNS MEDICATIONS Unknown Medications RESULTS No Results PROCEDURES Procedure Date Ordered Result Body Site Psychotherapy, patient &/family, 30 minutes, established patient June 28, 2016 IMMUNIZATIONS No Known Immunizations MEDICAL (GENERAL) [...]
--- OUTSIDE RECORDS SUMMARY | 2017-06-25 09:55 | XMS REPORT ---
Author Author CASEY SIMPSON [facility] Address [address] [place] [address] Care Team Providers Care Conical Mixer Name Role Phone CASEY SIMPSON Unavailable PROBLEMS Type Condition ICD9-CM Code MNH46-KK Code Onset Dates Condition Status SNOMED Code Problem Anxiety F41.9 Active 02853036 Problem Chronic obstructive pulmonary disease with acute exacerbation J44.1 Active 907702425 Problem Nicotine abuse Z72.0 Active 07699335 Problem Essential hypertension I10 Active 71148731 Problem Supplemental oxygen dependent Z99.81 Active 292429471599 Problem CAD (coronary artery disease) 414.00 Active 70255463 Problem Other iron deficiency anemia D50.8 Active 27374679 Problem Reactive depression F32.9 Active 52953783 Problem Memory loss R41.3 Active 97035228 Problem Pulmonary emphysema, unspecified emphysema type J43.9 Active 70736255 Problem Other emphysema J43.8 Active 97435684 Problem Irritable bowel syndrome with diarrhea K58.0 Active 328704112 ALLERGIES No Information SOCIAL HISTORY Never Assessed PLAN OF CARE VITAL SIGNS MEDICATIONS Unknown Medications RESULTS Name Result Date Reference Range CBC 2016-07-11 WBC 8.9 3.4-10.8 RBC 4.04 3.77-5.28 Hemoglobin 8.8 11.1-15.9 Hematocrit 30.3 34.0-46.6 MCV 75 79-97 MCH 21.8 26.6-33.0 MCHC 29.0 31.5-35.7 RDW 17.2 12.3-15.4 Platelets 564 150-379 Neutrophils 78 Lymphs 15 Monocytes 5 Eos 0 Basos 1 Immature Cells Neutrophils (Absolute) 7.0 1.4-7.0 Lymphs (Absolute) 1.3 0.7-3.1 Monocytes(Absolute) 0.4 0.1-0.9 Eos (Absolute) 0.0 0.0-0.4 Baso (Absolute) 0.1 0.0-0.2 Immature Granulocytes 1 Immature Grans (Abs) 0.0 0.0-0.1 NRBC Hematology Comments: Note: HEMOCCULT (IN HOUSE) 2016-07-11 RESULTS Positive Control + Lot # [id number] Exp date 03/2017 HEMOCCULT (IN HOUSE)-Additional 2016-07-11 RESULTS Positive Control + Lot # [id number] Exp Date 03/2017 PROCEDURES Procedure Date Ordered Result Body Site LAB NOT BILLED BY [facility] July 11, 2016 TEST FOR BLOOD, FECES July 11, 2016 VENIPUNCT, ROUTINE* July 11, 2016 IMMUNIZATIONS No Known Immunizations MEDICAL (GENERAL) [...]
--- OUTSIDE RECORDS SUMMARY | 2017-06-25 09:55 | XMS REPORT ---
Author Author CASEY SIMPSON [facility] Address [address] [place] [address] Care Team Providers Care Ballistician Name Role Phone CASEY SIMPSON Unavailable PROBLEMS Type Condition ICD9-CM Code [id number] Code Onset Dates Condition Status SNOMED Code Problem Anxiety F41.9 Active 35109049 Problem Chronic obstructive pulmonary disease with acute exacerbation J44.1 Active 787185296 Problem Nicotine abuse Z72.0 Active 93662469 Problem Essential hypertension I10 Active 41411307 Problem Supplemental oxygen dependent Z99.81 Active 309235849771 Problem CAD (coronary artery disease) 414.00 Active 72983113 Problem Other iron deficiency anemia D50.8 Active 37190781 Problem Reactive depression F32.9 Active 20602829 Problem Memory loss R41.3 Active 35672230 Problem Pulmonary emphysema, unspecified emphysema type J43.9 Active 11453661 Problem Other emphysema J43.8 Active 64446673 Problem Irritable bowel syndrome with diarrhea K58.0 Active 386771336 ALLERGIES No Information SOCIAL HISTORY Never Assessed PLAN OF CARE VITAL SIGNS MEDICATIONS Medication Instructions Dosage Frequency Start Date End Date Duration Status Clonidine HCl 0.2 MG Orally Twice a day 1 tablet 12h 30 days Active RESULTS No Results PROCEDURES No [...]
--- OUTSIDE RECORDS SUMMARY | 2017-06-25 09:57 | XMS REPORT | Continuity of Care Document ---
Author Author [facility] Address Unknown Phone Unavailable Allergies Active Description Code Type Severity Reaction Onset Reported/Identified Relationship to Patient Clinical Status Yes Imitrex Drug Allergy N/A N/A 06/13/2008 Yes Penicillins Drug Allergy N/A N/A 06/13/2008 Yes Sulfa (Sulfonamide Antibiotics) Drug Allergy N/A N/A 06/13/2008 Yes Imitrex Drug Allergy 06/13/2008 Yes Penicillins Drug Allergy 06/13/2008 Yes sulfa drug Drug Allergy 06/13/2008 Yes Effexor XR 75 mg capsule,extended release 24hr Drug Allergy N/A N/A 07/30 Yes Effexor XR 75 mg capsule,extended release 24hr Drug Allergy 2012 Yes Lipitor Drug Allergy N/A N/A 03/12/2013 Yes tramadol [id number] Drug Allergy Mild N/A 07/08/2013 Yes Penicillins [id number] Drug Allergy Unknown N/A 07/08/2013 Yes Sulfa (Sulfonamide Antibiotics) [id number] Drug Allergy Unknown N/A 2013 Yes sumatriptan [id number] Drug Allergy Unknown N/A 07/08/2013 Yes Lipitor 20 mg tablet Drug Allergy N/A N/A 01/01/2014 Medications There is no data. Problems Date Dx Coded Attending Type Code Diagnosis Diagnosed By 06/13/2008 CASEY SIMPSON APRN 300.00 ANXIETY STATE UNSPECIFIED 06/13/2008 CASEY SIMPSON APRN 401.1 BENIGN ESSENTIAL HYPERTENSION 06/13/2008 CASEY SIMPSON APRN 729.5 Pain In Limb 06/13/2008 CASEY SIMPSON APRN 782.1 Rash And Other Nonspecific Skin Eruption 06/13/2008 CASEY SIMPSON APRN 300.00 ANXIETY STATE UNSPECIFIED 06/13/2008 TATIANA COMPUTER OPERATIONS ANALYST, CASEY S 401.1 BENIGN ESSENTIAL HYPERTENSION 06/13/2008 TATIANA COMPUTER OPERATIONS ANALYST, CASEY S 729.5 Pain In Limb 06/13/2008 TATIANA COMPUTER OPERATIONS ANALYST, CASEY S 782.1 Rash And Other Nonspecific Skin Eruption 06/13/2008 300.00 anxiety 06/13/2008 401.1 ESSENTIAL HYPERTENSION BENIGN 06/13/2008 729.5 Pain In Limb 06/13/2008 782.1 Rash And Other Nonspecific Skin Eruption 06/13/2008 300.00 anxiety 06/13/2008 401.1 ESSENTIAL HYPERTENSION BENIGN 06/13/2008 729.5 Pain In Limb 06/13/2008 782.1 Rash And Other Nonspecific Skin Eruption 06/13/2008 300.00 anxiety 06/13/2008 401.1 ESSENTIAL HYPERTENSION BENIGN 06/13/2008 729.5 Pain In Limb 06/13/2008 782.1 Rash And Other Nonspecific Skin Eruption 06/13/2008 300.00 anxiety 06/13/2008 401.1 ESSENTIAL HYPERTENSION BENIGN 06/13/2008 729.5 Pain In Limb 06/13/2008 782.1 Rash And Other Nonspecific Skin Eruption 06/13/2008 MURRAY PEREZ, DANYA M 300.00 anxiety 06/13/2008 MURRAY PEREZ, DANYA M 401.1 ESSENTIAL HYPERTENSION BENIGN 06/13/2008 MURRAY PEREZ, DANYA M 729.5 Pain In Limb 06/13/2008 MURRAY PEREZ, DANYA M 782.1 Rash And Other Nonspecific Skin Eruption 06/13/2008 TATIANA AQUINO, CASEY S 300.00 anxiety 06/13/2008 TATIANA AQUINO, CASEY S 401.1 ESSENTIAL HYPERTENSION BENIGN 06/13/2008 TATIANA COMPUTER OPERATIONS ANALYST, CASEY S 729.5 Pain In Limb 06/13/2008 TATIANA COMPUTER OPERATIONS ANALYST, CASEY S 782.1 Rash And Other Nonspecific Skin Eruption 06/13/2008 TATIANA COMPUTER OPERATIONS ANALYST, CASEY S 300.00 anxiety 06/13/2008 TATIANA COMPUTER OPERATIONS ANALYST, CASEY S 401.1 ESSENTIAL HYPERTENSION BENIGN 06/13/2008 TATIANA COMPUTER OPERATIONS ANALYST, CASEY S 729.5 Pain In Limb 06/13/2008 TATIANA COMPUTER OPERATIONS ANALYST, CASEY S 782.1 Rash And Other Nonspecific Skin Eruption 06/13/2008 THELMA COMPUTER OPERATIONS ANALYST, BLAS A 300.00 anxiety 06/13/2008 THELMA BENTLEYN, BLAS A 401.1 ESSENTIAL HYPERTENSION BENIGN 06/13/2008 THELMA AQUINO, BLAS A 729.5 Pain In Limb 06/13/2008 THELMA BENTLEYN, BLAS A 782.1 Rash And Other Nonspecific Skin Eruption 06/13/2008 TATIANA COMPUTER OPERATIONS ANALYST, CASEY S 300.00 anxiety 06/13/2008 TATIANA COMPUTER OPERATIONS ANALYST, CASEY S 401.1 ESSENTIAL HYPERTENSION BENIGN 06/13/2008 TATIANA COMPUTER OPERATIONS ANALYST, CASEY S 729.5 Pain In Limb 06/13/2008 TATIANA COMPUTER OPERATIONS ANALYST, CASEY S 782.1 Rash And Other Nonspecific Skin Eruption 06/13/2008 THELMA AQUINO, BLAS A 300.00 anxiety 06/13/2008 THELMA AQUINO, BLAS A 401.1 ESSENTIAL HYPERTENSION BENIGN 06/13/2008 THELMA AQUINO, BLAS A 729.5 Pain In Limb 06/13/2008 THELMA AQUINO, BLAS A 782.1 Rash And Other Nonspecific Skin Eruption 06/13/2008 SHANA YORK MD 300.00 anxiety 06/13/2008 SHANA YORK MD 401.1 ESSENTIAL HYPERTENSION BENIGN 06/13/2008 SHANA YORK MD 729.5 Pain In Limb 06/13/2008 SHANA YORK MD 782.1 Rash And Other Nonspecific Skin Eruption 06/13/2008 TATIANA BENTLEYN, CASEY S 300.00 anxiety 06/13/2008 TATIANA BENTLEYN, CASEY S 401.1 ESSENTIAL HYPERTENSION BENIGN 06/13/2008 TATIANA BENTLEYN, CASEY S 729.5 Pain In Limb 06/13/2008 TATIANA COMPUTER OPERATIONS ANALYST, CASEY S 782.1 Rash And Other Nonspecific Skin Eruption 06/13/2008 TATIANA COMPUTER OPERATIONS ANALYST, CASEY S 300.00 anxiety 06/13/2008 TATIANA COMPUTER OPERATIONS ANALYST, CASEY S 401.1 ESSENTIAL HYPERTENSION BENIGN 06/13/2008 TATIANA COMPUTER OPERATIONS ANALYST, CASEY S 729.5 Pain In Limb 06/13/2008 TATIANA COMPUTER OPERATIONS ANALYST, CASEY S 782.1 Rash And Other Nonspecific Skin Eruption 06/13/2008 TATIANA COMPUTER OPERATIONS ANALYST, CASEY S 300.00 anxiety 06/13/2008 TATIANA COMPUTER OPERATIONS ANALYST, CASEY S 401.1 ESSENTIAL HYPERTENSION BENIGN 06/13/2008 TATIANA AQUINO, CASEY S 729.5 Pain In Limb 06/13/2008 TATIANA AQUINO, CASEY S 782.1 Rash And Other Nonspecific Skin Eruption 06/13/2008 THELMA COMPUTER OPERATIONS ANALYST, BLAS A 300.00 anxiety 06/13/2008 THELMA COMPUTER OPERATIONS ANALYST, BLAS A 401.1 ESSENTIAL HYPERTENSION BENIGN 06/13/2008 THELMA COMPUTER OPERATIONS ANALYST, BLAS A 729.5 Pain In Limb 06/13/2008 THELMA COMPUTER OPERATIONS ANALYST, BLAS A 782.1 Rash And Other Nonspecific Skin Eruption 06/13/2008 ОЛЕГ KWON MD N 300.00 anxiety 06/13/2008 ОЛЕГ KWON MD N 401.1 ESSENTIAL HYPERTENSION BENIGN 06/13/2008 ОЛЕГ KWON MD N 729.5 Pain In Limb 06/13/2008 ОЛЕГ KWON MD N 782.1 Rash And Other Nonspecific Skin Eruption 06/24/2008 DUKE SIMPSON APRNNDA S 785.0 Tachycardia Unspecified 06/24/2008 DUKE SIMPSON APRNNDA S V76.19 Other Screening Breast Examination 06/24/2008 DUKE SIMPSON APRNNDA S 785.0 Tachycardia Unspecified 06/24/2008 DUKE SIMPSON APRNNDA S V76.19 Other Screening Breast Examination 06/24/2008 785.0 Tachycardia Unspecified 06/24/2008 V76.19 Other Screening Breast Examination 06/24/2008 785.0 Tachycardia Unspecified 06/24/2008 V76.19 Other Screening Breast Examination 06/24/2008 785.0 Tachycardia Unspecified 06/24/2008 V76.19 Other Screening Breast Examination 06/24/2008 785.0 Tachycardia Unspecified 06/24/2008 V76.19 Other Screening Breast Examination 06/24/2008 MURRAY PEREZ, DANYA Malloy 785.0 Tachycardia Unspecified 06/24/2008 MURRAY PEREZ, DANYA Malloy V76.19 Other Screening Breast Examination 06/24/2008 DUKE SIMPSON APRNNDA S 785.0 Tachycardia Unspecified 06/24/2008 TATIANA COMPUTER OPERATIONS ANALYST, CASEY S V76.19 Other Screening Breast Examination 06/24/2008 TATIANA COMPUTER OPERATIONS ANALYST, CASEY S 785.0 Tachycardia Unspecified 06/24/2008 TATIANA COMPUTER OPERATIONS ANALYST, CASEY S V76.19 Other Screening Breast Examination 06/24/2008 THELMA COMPUTER OPERATIONS ANALYST, BLAS A 785.0 Tachycardia Unspecified 06/24/2008 THELMA COMPUTER OPERATIONS ANALYST, BLAS A V76.19 Other Screening Breast Examination 06/24/2008 TATIANA COMPUTER OPERATIONS ANALYST, CASEY S 785.0 Tachycardia Unspecified 06/24/2008 TATIANA COMPUTER OPERATIONS ANALYST, CASEY S V76.19 Other Screening Breast Examination 06/24/2008 THELMA COMPUTER OPERATIONS ANALYST, BLAS A 785.0 Tachycardia Unspecified 06/24/2008 THELMA COMPUTER OPERATIONS ANALYST, BLAS A V76.19 Other Screening Breast Examination 06/24/2008 SHANA YORK MD 785.0 Tachycardia Unspecified 06/24/2008 SHANA YORK MD V76.19 Other Screening Breast Examination 06/24/2008 TATIANA COMPUTER OPERATIONS ANALYST, CASEY S 785.0 Tachycardia Unspecified 06/24/2008 TATIANA COMPUTER OPERATIONS ANALYST, CASEY S V76.19 Other Screening Breast Examination 06/24/2008 TATIANA COMPUTER OPERATIONS ANALYST, CASEY S 785.0 Tachycardia Unspecified 06/24/2008 TATIANA COMPUTER OPERATIONS ANALYST, CASEY S V76.19 Other Screening Breast Examination 06/24/2008 TATIANA COMPUTER OPERATIONS ANALYST, CASEY S 785.0 Tachycardia Unspecified 06/24/2008 TATIANA COMPUTER OPERATIONS ANALYST, CASEY S V76.19 Other Screening Breast Examination 06/24/2008 THELMA COMPUTER OPERATIONS ANALYST, BLAS A 785.0 Tachycardia Unspecified 06/24/2008 THELMA COMPUTER OPERATIONS ANALYST, BLAS A V76.19 Other Screening Breast Examination 06/24/2008 ОЛЕГ KWON MD N 785.0 Tachycardia Unspecified 06/24/2008 ОЛЕГ KWON MD N V76.19 Other Screening Breast Examination 08/04/2008 TATIANA COMPUTER OPERATIONS ANALYST, CASEY S 496 Chronic Airway Obstruction Not Elsewhere Classified 08/04/2008 TATIANA COMPUTER OPERATIONS ANALYST, CASEY S 496 Chronic Airway Obstruction Not Elsewhere Classified 08/04/2008 496 Chronic Airway Obstruction Not Elsewhere Classified 08/04/2008 496 Chronic Airway Obstruction Not Elsewhere Classified 08/04/2008 496 Chronic Airway Obstruction Not Elsewhere Classified 08/04/2008 496 Chronic Airway Obstruction Not Elsewhere Classified 08/04/2008 MURRAY PEREZ, DANYA Malloy 496 Chronic Airway Obstruction Not Elsewhere Classified 08/04/2008 TATIANA COMPUTER OPERATIONS ANALYST, CASEY S 496 Chronic Airway Obstruction Not Elsewhere Classified 08/04/2008 TATIANA COMPUTER OPERATIONS ANALYST, CASEY S 496 Chronic Airway Obstruction Not Elsewhere Classified 08/04/2008 THELMA COMPUTER OPERATIONS ANALYST, BLAS A 496 Chronic Airway Obstruction Not Elsewhere Classified 08/04/2008 TATIANA COMPUTER OPERATIONS ANALYST, CASEY S 496 Chronic Airway Obstruction Not Elsewhere Classified 08/04/2008 THELMA COMPUTER OPERATIONS ANALYST BLAS A 496 Chronic Airway Obstruction Not Elsewhere Classified 08/04/2008 SHANA YORK MD 496 Chronic Airway Obstruction Not Elsewhere Classified 08/04/2008 TATIANA COMPUTER OPERATIONS ANALYST, CASEY S 496 Chronic Airway Obstruction Not Elsewhere Classified 08/04/2008 TATIANA COMPUTER OPERATIONS ANALYST, CASEY S 496 Chronic Airway Obstruction Not Elsewhere Classified 08/04/2008 TATIANA COMPUTER OPERATIONS ANALYST, CASEY S 496 Chronic Airway Obstruction Not Elsewhere Classified 08/04/2008 THELMA COMPUTER OPERATIONS ANALYST BLAS A 496 Chronic Airway Obstruction Not Elsewhere Classified 08/04/2008 ОЛЕГ KWON MD 496 Chronic Airway Obstruction Not Elsewhere Classified 09/01/2008 TATIANA COMPUTER OPERATIONS ANALYST, CASEY S 401.9 Hypertension, Unspecified Essential 09/01/2008 TATIANA COMPUTER OPERATIONS ANALYST, CASEY S 401.9 Hypertension, Unspecified Essential 09/01/2008 401.9 Hypertension, Unspecified Essential 09/01/2008 401.9 Hypertension, Unspecified Essential 09/01/2008 401.9 Hypertension, Unspecified Essential 09/01/2008 401.9 Hypertension, Unspecified Essential 09/01/2008 MURRAY PEREZ, DANYA Malloy 401.9 Hypertension, Unspecified Essential 09/01/2008 TATIANA COMPUTER OPERATIONS ANALYST, CASEY S 401.9 Hypertension, Unspecified Essential 09/01/2008 TAITANA COMPUTER OPERATIONS ANALYST, CASEY S 401.9 Hypertension, Unspecified Essential 09/01/2008 THELMADOIR BENTLEYN BLAS A 401.9 Hypertension, Unspecified Essential 09/01/2008 TATIANA COMPUTER OPERATIONS ANALYST, CASEY S 401.9 Hypertension, Unspecified Essential 09/01/2008 THELMA COMPUTER OPERATIONS ANALYST, BLAS A 401.9 Hypertension, Unspecified Essential 09/01/2008 SHANA YORK MD 401.9 Hypertension, Unspecified Essential 09/01/2008 TATIANA COMPUTER OPERATIONS ANALYST, CASEY S 401.9 Hypertension, Unspecified Essential 09/01/2008 TATIANA COMPUTER OPERATIONS ANALYST, CASEY S 401.9 Hypertension, Unspecified Essential 09/01/2008 TATIANA COMPUTER OPERATIONS ANALYST, CASEY S 401.9 Hypertension, Unspecified Essential 09/01/2008 THELMA COMPUTER OPERATIONS ANALYST, BLAS A 401.9 Hypertension, Unspecified Essential 09/01/2008 CHER PEREZ, ОЛЕГ Hamilton 401.9 Hypertension, Unspecified Essential 05/11/2009 TATIANA COMPUTER OPERATIONS ANALYST, CASEY S 719.41 Pain In Joint, Shoulder Region 05/11/2009 TATIANA COMPUTER OPERATIONS ANALYST, CASEY S 719.41 Pain In Joint, Shoulder Region 05/11/2009 719.41 Pain In Joint , Shoulder Region 05/11/2009 719.41 Pain In Joint , Shoulder Region 05/11/2009 719.41 Pain In Joint , Shoulder Region 05/11/2009 719.41 Pain In Joint , Shoulder Region 05/11/2009 MURRAY PEREZ, DANYA Malloy 719.41 Pain In Joint, Shoulder Region 05/11/2009 TATIANA COMPUTER OPERATIONS ANALYST, CASEY S 719.41 Pain In Joint, Shoulder Region 05/11/2009 TATIANA COMPUTER OPERATIONS ANALYST, CASEY S 719.41 Pain In Joint, Shoulder Region 05/11/2009 THELMA BENTLEYN, BLAS A 719.41 Pain In Joint, Shoulder Region 05/11/2009 TATIANA COMPUTER OPERATIONS ANALYST, CASEY S 719.41 Pain In Joint, Shoulder Region 05/11/2009 THELMA COMPUTER OPERATIONS ANALYST, BLAS A 719.41 Pain In Joint, Shoulder Region 05/11/2009 SHANA YORK MD 719.41 Pain In Joint, Shoulder Region 05/11/2009 TATIANA COMPUTER OPERATIONS ANALYST, CASEY S 719.41 Pain In Joint, Shoulder Region 05/11/2009 TATIANA COMPUTER OPERATIONS ANALYST, CASEY S 719.41 Pain In Joint, Shoulder Region 05/11/2009 TATIANA AQUINO, CASEY S 719.41 Pain In Joint, Shoulder Region 05/11/2009 THELMA COMPUTER OPERATIONS ANALYST, BLAS A 719.41 Pain In Joint, Shoulder Region 05/11/2009 ОЛЕГ KWON MD N 719.41 Pain In Joint, Shoulder Region 06/16/2009 TATIANA AQUINO, CASEY S 461.0 Acute Maxillary Sinusitis 06/16/2009 TATIANA AQUINO, CASEY S 461.0 Acute Maxillary Sinusitis 06/16/2009 461.0 Acute Maxillary Sinusitis 06/16/2009 461.0 Acute Maxillary Sinusitis 06/16/2009 461.0 Acute Maxillary Sinusitis 06/16/2009 461.0 Acute Maxillary Sinusitis 06/16/2009 MURRAY PEREZ, DANYA Malloy 461.0 Acute Maxillary Sinusitis 06/16/2009 TATIANA AQUINO, CASEY S 461.0 Acute Maxillary Sinusitis 06/16/2009 TATIANA AQUINO, CASEY S 461.0 Acute Maxillary Sinusitis 06/16/2009 THELMA COMPUTER OPERATIONS ANALYST, BLAS A 461.0 Acute Maxillary Sinusitis 06/16/2009 TATIANA AQUINO, CASEY S 461.0 Acute Maxillary Sinusitis 06/16/2009 THELMA COMPUTER OPERATIONS ANALYST, BLAS A 461.0 Acute Maxillary Sinusitis 06/16/2009 SHANA YORK MD 461.0 Acute Maxillary Sinusitis 06/16/2009 TATIANA AQUINO, CASEY S 461.0 Acute Maxillary Sinusitis 06/16/2009 TATIANA AQUINO, CASEY S 461.0 Acute Maxillary Sinusitis 06/16/2009 TATIANA AQUINO, CASEY S 461.0 Acute Maxillary Sinusitis 06/16/2009 THELMA COMPUTER OPERATIONS ANALYST, BLAS A 461.0 Acute Maxillary Sinusitis 06/16/2009 ОЛЕГ KWON MD N 461.0 Acute Maxillary Sinusitis 09/01/2009 TATIANA AQUINO CASEY S 625.6 Stress Incontinence, Female 09/01/2009 DUKE SIMPSON APRNNDA S 780.93 Memory Loss 09/01/2009 DUKE SIMPSON APRNNDA S V76.11 Screening Mammogram For High-risk Patient 09/01/2009 TATIANA AQUINO, CASEY S 625.6 Stress Incontinence, Female 09/01/2009 TATIANA AQUINO, CASEY S 780.93 Memory Loss 09/01/2009 TATIANA AQUINO, CASEY S V76.11 Screening Mammogram For High-risk Patient 09/01/2009 625.6 Stress Incontinence, Female 09/01/2009 780.93 Memory Loss 09/01/2009 V76.11 Screening Mammogram For High-risk Patient 09/01/2009 625.6 Stress Incontinence, Female 09/01/2009 780.93 Memory Loss 09/01/2009 V76.11 Screening Mammogram For High-risk Patient 09/01/2009 625.6 Stress Incontinence, Female 09/01/2009 780.93 Memory Loss 09/01/2009 V76.11 Screening Mammogram For High-risk Patient 09/01/2009 625.6 Stress Incontinence, Female 09/01/2009 780.93 Memory Loss 09/01/2009 V76.11 Screening Mammogram For High-risk Patient 09/01/2009 MURRAY PEREZ, DANYA Malloy 625.6 Stress Incontinence, Female 09/01/2009 MURRAY PEREZ, DANYA Malloy 780.93 Memory Loss 09/01/2009 MURRAY PEREZ, DANYA M V76.11 Screening Mammogram For High-risk Patient 09/01/2009 TATIANA AQUINO, CASEY S 625.6 Stress Incontinence, Female 09/01/2009 TATIANA AQUINO, CASEY S 780.93 Memory Loss 09/01/2009 TATIANA AQUINO, CASEY S V76.11 Screening Mammogram For High-risk Patient 09/01/2009 TATIANA AQUINO, CASEY S 625.6 Stress Incontinence, Female 09/01/2009 TATIANA AQUINO, CASEY S 780.93 Memory Loss 09/01/2009 TATIANA AQUINO, CASEY S V76.11 Screening Mammogram For High-risk Patient 09/01/2009 THELMA AQUINO BLAS A 625.6 Stress Incontinence, Female 09/01/2009 THELMA APRN, BLSA A 780.93 Memory Loss 09/01/2009 THELMA APRN, BLAS A V76.11 Screening Mammogram For High-risk Patient 09/01/2009 TATIANA AQUINO, CASEY S 625.6 Stress Incontinence, Female 09/01/2009 TATIANA AQUINO, CASEY S 780.93 Memory Loss 09/01/2009 TATIANA AQUINO, CASEY S V76.11 Screening Mammogram For High-risk Patient 09/01/2009 THELMA COMPUTER OPERATIONS ANALYST, BLAS A 625.6 Stress Incontinence, Female 09/01/2009 THELMA COMPUTER OPERATIONS ANALYST, BLAS A 780.93 Memory Loss 09/01/2009 THELMA BENTLEYN, BLAS A V76.11 Screening Mammogram For High-risk Patient 09/01/2009 SHANA YORK MD 625.6 Stress Incontinence, Female 09/01/2009 SHANA YORK MD 780.93 Memory Loss 09/01/2009 SHANA YORK MD V76.11 Screening Mammogram For High-risk Patient 09/01/2009 TATIANA AQUINO, CASEY S 625.6 Stress Incontinence, Female 09/01/2009 TATIANA AQUINO, CASEY S 780.93 Memory Loss 09/01/2009 TATIANA AQUINO, CASEY S V76.11 Screening Mammogram For High-risk Patient 09/01/2009 TATIANA AQUINO, CASEY S 625.6 Stress Incontinence, Female 09/01/2009 TATIANA AQUINO, CASEY S 780.93 Memory Loss 09/01/2009 TATIANA AQUINO, CASEY S V76.11 Screening Mammogram For High-risk Patient 09/01/2009 TATIANA AQUINO, CASEY S 625.6 Stress Incontinence, Female 09/01/2009 TATIANA AQUINO, CASEY S 780.93 Memory Loss 09/01/2009 TATIANA AQUINO, CASEY S V76.11 Screening Mammogram For High-risk Patient 09/01/2009 THELMADORI AQUINO, BLAS A 625.6 Stress Incontinence, Female 09/01/2009 THELMA AQUINO, BLAS A 780.93 Memory Loss 09/01/2009 THELMA AQUINO, BLAS A V76.11 Screening Mammogram For High-risk Patient 09/01/2009 ОЛЕГ KWON MD 625.6 Stress Incontinence, Female 09/01/2009 ОЛЕГ KWON MD 780.93 Memory Loss 09/01/2009 ОЛЕГ KWON MD V76.11 Screening Mammogram For High-risk Patient 11/17/2009 TATIANA COMPUTER OPERATIONS ANALYST, CASEY S 786.09 Respiratory Abnormalities, Other 11/17/2009 TATIANA COMPUTER OPERATIONS ANALYST, CASEY S 786.50 chest pain or discomfort reported as pain 11/17/2009 TATIANA COMPUTER OPERATIONS ANALYST, CASEY S 786.09 Respiratory Abnormalities, Other 11/17/2009 TATIANA COMPUTER OPERATIONS ANALYST, CASEY S 786.50 chest pain or discomfort reported as pain 11/17/2009 786.09 Respiratory Abnormalities, Other 11/17/2009 786.50 chest pain or discomfort reported as pain 11/17/2009 786.09 Respiratory Abnormalities, Other 11/17/2009 786.50 chest pain or discomfort reported as pain 11/17/2009 786.09 Respiratory Abnormalities, Other 11/17/2009 786.50 chest pain or discomfort reported as pain 11/17/2009 786.09 Respiratory Abnormalities, Other 11/17/2009 786.50 chest pain or discomfort reported as pain 11/17/2009 DANYA GAO MD 786.09 Respiratory Abnormalities, Other 11/17/2009 DANYA GAO MD 786.50 chest pain or discomfort reported as pain 11/17/2009 TATIANA COMPUTER OPERATIONS ANALYST, CASEY S 786.09 Respiratory Abnormalities, Other 11/17/2009 TATIANA COMPUTER OPERATIONS ANALYST, CASEY S 786.50 chest pain or discomfort reported as pain 11/17/2009 TATIANA COMPUTER OPERATIONS ANALYST, CASEY S 786.09 Respiratory Abnormalities, Other 11/17/2009 TATIANA COMPUTER OPERATIONS ANALYST, CASEY S 786.50 chest pain or discomfort reported as pain 11/17/2009 THELMA COMPUTER OPERATIONS ANALYST, BLAS A 786.09 Respiratory Abnormalities, Other 11/17/2009 THELMA COMPUTER OPERATIONS ANALYST, BLAS A 786.50 chest pain or discomfort reported as pain 11/17/2009 TATIANA COMPUTER OPERATIONS ANALYST, CSAEY S 786.09 Respiratory Abnormalities, Other 11/17/2009 TATIANA COMPUTER OPERATIONS ANALYST, CASEY S 786.50 chest pain or discomfort reported as pain 11/17/2009 THELMA COMPUTER OPERATIONS ANALYST, BLAS A 786.09 Respiratory Abnormalities, Other 11/17/2009 THELMA COMPUTER OPERATIONS ANALYST, BLAS A 786.50 chest pain or discomfort reported as pain 11/17/2009 SHANA YORK MD 786.09 Respiratory Abnormalities, Other 11/17/2009 CHELA PEREZ, SHANA 786.50 chest pain or discomfort reported as pain 11/17/2009 TATIANA COMPUTER OPERATIONS ANALYST, CASEY S 786.09 Respiratory Abnormalities, Other 11/17/2009 TATIANA COMPUTER OPERATIONS ANALYST, CASEY S 786.50 CHEST PAIN OR DISCOMFORT REPORTED PAIN 11/17/2009 TATIANA COMPUTER OPERATIONS ANALYST, CASEY S 786.09 Respiratory Abnormalities, Other 11/17/2009 TATIANA COMPUTER OPERATIONS ANALYST, CASEY S 786.50 CHEST PAIN OR DISCOMFORT REPORTED PAIN 11/17/2009 TATIANA COMPUTER OPERATIONS ANALYST, CASEY S 786.09 Respiratory Abnormalities, Other 11/17/2009 TATIANA COMPUTER OPERATIONS ANALYST, CASEY S 786.50 CHEST PAIN OR DISCOMFORT REPORTED PAIN 11/17/2009 THELMA COMPUTER OPERATIONS ANALYST, BLAS A 786.09 Respiratory Abnormalities, Other 11/17/2009 THELMA COMPUTER OPERATIONS ANALYST, BLAS A 786.50 CHEST PAIN OR DISCOMFORT REPORTED PAIN 11/17/2009 CHER PEREZ, ОЛЕГ N 786.09 Respiratory Abnormalities, Other 11/17/2009 CHER PEREZ, ОЛЕГ N 786.50 CHEST PAIN OR DISCOMFORT REPORTED PAIN 07/06/2010 TATIANA COMPUTER OPERATIONS ANALYST, CASEY S 466.0 Acute Bronchitis 07/06/2010 TATIANA COMPUTER OPERATIONS ANALYST, CASEY S 466.0 Acute Bronchitis 07/06/2010 466.0 Acute Bronchitis 07/06/2010 466.0 Acute Bronchitis 07/06/2010 466.0 Acute Bronchitis 07/06/2010 466.0 Acute Bronchitis 07/06/2010 MURRAY PEREZ, DANYA M 466.0 Acute Bronchitis 07/06/2010 TATIANA COMPUTER OPERATIONS ANALYST, CASYE S 466.0 Acute Bronchitis 07/06/2010 TATIANA COMPUTER OPERATIONS ANALYST, CASEY S 466.0 Acute Bronchitis 07/06/2010 THELMA COMPUTER OPERATIONS ANALYST, BLAS A 466.0 Acute Bronchitis 07/06/2010 TATIANA COMPUTER OPERATIONS ANALYST, CASEY S 466.0 Acute Bronchitis 07/06/2010 THELMA COMPUTER OPERATIONS ANALYST, BLAS A 466.0 Acute Bronchitis 07/06/2010 SHANA OYRK MD 466.0 Acute Bronchitis 07/06/2010 TATIANA COMPUTER OPERATIONS ANALYST, CASEY S 466.0 Acute Bronchitis 07/06/2010 TATIANA COMPUTER OPERATIONS ANALYST, CASEY S 466.0 Acute Bronchitis 07/06/2010 TATIANA AQUINO, CASEY S 466.0 Acute Bronchitis 07/06/2010 THELMA AQUINO, BALS A 466.0 Acute Bronchitis 07/06/2010 CHER PEREZ, ОЛЕГ Hamilton 466.0 Acute Bronchitis 10/13/2010 TATIANA AQUINO, CASEY S 564.1 IRRITABLE BOWEL SYNDROME 10/13/2010 TATIANA AQUINO, CASEY S 564.1 IRRITABLE BOWEL SYNDROME 10/13/2010 564.1 IRRITABLE BOWEL SYNDROME 10/13/2010 564.1 IRRITABLE BOWEL SYNDROME 10/13/2010 564.1 IRRITABLE BOWEL SYNDROME 10/13/2010 564.1 IRRITABLE BOWEL SYNDROME 10/13/2010 MURRAY PEREZ, DANYA Malloy 564.1 IRRITABLE BOWEL SYNDROME 10/13/2010 TATIANA AQUINO, CASEY S 564.1 IRRITABLE BOWEL SYNDROME 10/13/2010 TATIANA AQUINO, CASEY S 564.1 IRRITABLE BOWEL SYNDROME 10/13/2010 THELMA AQUINO, BLAS A 564.1 IRRITABLE BOWEL SYNDROME 10/13/2010 TATIANA AQUINO, CASEY S 564.1 IRRITABLE BOWEL SYNDROME 10/13/2010 THELMA AQUINO, BLAS A 564.1 IRRITABLE BOWEL SYNDROME 10/13/2010 CHELA PEREZ, SHANA 564.1 IRRITABLE BOWEL SYNDROME 10/13/2010 TATIANA AQUINO, CASEY S 564.1 IRRITABLE BOWEL SYNDROME 10/13/2010 TATIANA AQUINO, CASEY S 564.1 IRRITABLE BOWEL SYNDROME 10/13/2010 TATIANA AQUINO, CASEY S 564.1 IRRITABLE BOWEL SYNDROME 10/13/2010 THELMADORI AQUINO, BLAS A 564.1 IRRITABLE BOWEL SYNDROME 10/13/2010 CHER PEREZ, ОЛЕГ Hamilton 564.1 IRRITABLE BOWEL SYNDROME 11/10/2010 TATIANA AQUINO CASEY S 493.22 CHRONIC OBSTRUCTIVE ASTHMA WITH (ACUTE) EXACERBATION 11/10/2010 TATIANA AQUINO CASEY S 493.22 CHRONIC OBSTRUCTIVE ASTHMA WITH (ACUTE) EXACERBATION 11/10/2010 493.22 CHRONIC OBSTRUCTIVE ASTHMA WITH (ACUTE) EXACERBATION 11/10/2010 493.22 CHRONIC OBSTRUCTIVE ASTHMA WITH (ACUTE) EXACERBATION 11/10/2010 493.22 CHRONIC OBSTRUCTIVE ASTHMA WITH (ACUTE) EXACERBATION 11/10/2010 493.22 CHRONIC OBSTRUCTIVE ASTHMA WITH (ACUTE) EXACERBATION 11/10/2010 MURRAY PEREZ, DANYA Malloy 493.22 CHRONIC OBSTRUCTIVE ASTHMA WITH (ACUTE) EXACERBATION 11/10/2010 ALICE SIMPSON APRNA S 493.22 CHRONIC OBSTRUCTIVE ASTHMA WITH (ACUTE) EXACERBATION 11/10/2010 DUKE SIMPSON APRNNDA S 493.22 CHRONIC OBSTRUCTIVE ASTHMA WITH (ACUTE) EXACERBATION 11/10/2010 THELMA AQUINO, BLAS A 493.22 CHRONIC OBSTRUCTIVE ASTHMA WITH (ACUTE) EXACERBATION 11/10/2010 DUKE SIMPSON APRNNDA S 493.22 CHRONIC OBSTRUCTIVE ASTHMA WITH (ACUTE) EXACERBATION 11/10/2010 MARIVEL RENEE APRNIDI A 493.22 CHRONIC OBSTRUCTIVE ASTHMA WITH (ACUTE) EXACERBATION 11/10/2010 SHANA YORK MD 493.22 CHRONIC OBSTRUCTIVE ASTHMA WITH (ACUTE) EXACERBATION 11/10/2010 DUKE SIMPSON APRNNDA S 493.22 CHRONIC OBSTRUCTIVE ASTHMA WITH (ACUTE) EXACERBATION 11/10/2010 DUKE SIMPSON APRNNDA S 493.22 CHRONIC OBSTRUCTIVE ASTHMA WITH (ACUTE) EXACERBATION 11/10/2010 DUKE SIMPSON APRNNDA S 493.22 CHRONIC OBSTRUCTIVE ASTHMA WITH (ACUTE) EXACERBATION 11/10/2010 MARIVEL RENEE APRNIDI A 493.22 CHRONIC OBSTRUCTIVE ASTHMA WITH (ACUTE) EXACERBATION 11/10/2010 ОЛЕГ KWON MD 493.22 CHRONIC OBSTRUCTIVE ASTHMA WITH (ACUTE) EXACERBATION 12/09/2010 CASEY SIMPSON APRN S 296.33 MO DEPRESSIVE 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 12/09/2010 CASEY SIMPSON APRN S 300.02 AN GEN ANXIETY 12/09/2010 DUKE SIMPSON APRNNDA S 296.33 MO DEPRESSIVE 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 12/09/2010 CASEY SIMPSON APRN S 300.02 AN GEN ANXIETY 12/09/2010 296.33 MO DEPRESSIVE 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 12/09/2010 300.02 AN GEN ANXIETY 12/09/2010 296.33 MO DEPRESSIVE 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 12/09/2010 300.02 AN GEN ANXIETY 12/09/2010 296.33 MO DEPRESSIVE 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 12/09/2010 300.02 AN GEN ANXIETY 12/09/2010 296.33 MO DEPRESSIVE 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 12/09/2010 300.02 AN GEN ANXIETY 12/09/2010 MURRAY PEREZ, DANYA M 296.33 MO DEPRESSIVE 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 12/09/2010 MURRAY PEREZ, DANYA M 300.02 AN GEN ANXIETY 12/09/2010 DUKE SIMPSON APRNNDA S 296.33 MO DEPRESSIVE 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 12/09/2010 DUKE SIMPSON APRNNDA S 300.02 AN GEN ANXIETY 12/09/2010 DUKE SIMPSON APRNNDA S 296.33 MO DEPRESSIVE 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 12/09/2010 ALICE SIMPSON APRNA S 300.02 AN GEN ANXIETY 12/09/2010 THELMA AQUINO BLAS A 296.33 MO DEPRESSIVE 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 12/09/2010 THELMA AQUINO BLAS A 300.02 AN GEN ANXIETY 12/09/2010 ALICE SIMPSON APRNA S 296.33 MO DEPRESSIVE 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 12/09/2010 ALICE SIMPSON APRNA S 300.02 AN GEN ANXIETY 12/09/2010 THELMA AQUINO BLAS A 296.33 MO DEPRESSIVE 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 12/09/2010 THELMA AQUINO BLAS A 300.02 AN GEN ANXIETY 12/09/2010 SHANA YORK MD 296.33 MO DEPRESSIVE 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 12/09/2010 SHANA YORK MD 300.02 AN GEN ANXIETY 12/09/2010 DUKE SIMPSON APRNNDA S 296.33 MO DEPRESSIVE 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 12/09/2010 DUKE SIMPSON APRNNDA S 300.02 AN GEN ANXIETY 12/09/2010 DUKE SIMPSON APRNNDA S 296.33 MO DEPRESSIVE 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 12/09/2010 DUKE SIMPSON APRNNDA S 300.02 AN GEN ANXIETY 12/09/2010 DUKE SIMPSON APRNNDA S 296.33 MO DEPRESSIVE 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 12/09/2010 TATIANA COMPUTER OPERATIONS ANALYST, CASEY S 300.02 AN GEN ANXIETY 12/09/2010 THELMA AQUINO, BLAS A 296.33 MO DEPRESSIVE 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 12/09/2010 THELMA AQUINO, BLAS A 300.02 AN GEN ANXIETY 12/09/2010 ОЛЕГ KWON MD 296.33 MO DEPRESSIVE 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 12/09/2010 ОЛЕГ KWON MD 300.02 AN GEN ANXIETY 04/26/2011 Ot 719.46 04/26/2011 Ot 729.5 06/30/2011 DUKE SIMPSON APRNNDA S 461.9 ACUTE SINUSITIS UNSPECIFIED 06/30/2011 DUKE SIMPSON APRNNDA S 461.9 ACUTE SINUSITIS UNSPECIFIED 06/30/2011 461.9 ACUTE SINUSITIS UNSPECIFIED 06/30/2011 461.9 ACUTE SINUSITIS UNSPECIFIED 06/30/2011 461.9 ACUTE SINUSITIS UNSPECIFIED 06/30/2011 461.9 ACUTE SINUSITIS UNSPECIFIED 06/30/2011 MURRAY PEREZ, DANYA Malloy 461.9 ACUTE SINUSITIS UNSPECIFIED 06/30/2011 DUKE SIMPSON APRNNDA S 461.9 ACUTE SINUSITIS UNSPECIFIED 06/30/2011 DUKE SIMPSON APRNNDA S 461.9 ACUTE SINUSITIS UNSPECIFIED 06/30/2011 MARIVEL RENEE APRNIDI A 461.9 ACUTE SINUSITIS UNSPECIFIED 06/30/2011 DUKE SIMPSON APRNNDA S 461.9 ACUTE SINUSITIS UNSPECIFIED 06/30/2011 THELMA AQUINO BLAS A 461.9 ACUTE SINUSITIS UNSPECIFIED 06/30/2011 SHANA YORK MD 461.9 ACUTE SINUSITIS UNSPECIFIED 06/30/2011 DUKE SIMPSON APRNNDA S 461.9 ACUTE SINUSITIS UNSPECIFIED 06/30/2011 DUKE SIMPSON APRNNDA S 461.9 ACUTE SINUSITIS UNSPECIFIED 06/30/2011 DUKE SIMPSON APRNNDA S 461.9 ACUTE SINUSITIS UNSPECIFIED 06/30/2011 MARIVEL RENEE APRNIDI A 461.9 ACUTE SINUSITIS UNSPECIFIED 06/30/2011 ОЛЕГ KWON MD 461.9 ACUTE SINUSITIS UNSPECIFIED 08/25/2011 Ot 272.4 08/25/2011 Ot 305.1 08/25/2011 Ot 401.9 08/25/2011 Ot 414.01 08/25/2011 Ot 786.09 08/25/2011 Ot 786.50 08/25/2011 Ot V58.69 12/20/2011 Ot V45.82 12/20/2011 Ot V57.89 03/30/2012 Ot 272.4 HYPERLIPIDEMIA NEC/NOS 03/30/2012 Ot 305.1 TOBACCO USE DISORDER 03/30/2012 Ot 401.9 HYPERTENSION NOS 03/30/2012 Ot 414.01 CORONARY ATHEROSCLEROSIS OF [place] CORON 03/30/2012 Ot 786.09 RESPIRATORY ABNORM NEC 03/30/2012 Ot 786.59 CHEST PAIN NEC 03/30/2012 Ot 794.30 ABN CARDIOVASC STUDY NOS 03/30/2012 Ot V45.82 PERCUTANEOUS TRANSLUM CORON ANGIOPLASTY 03/30/2012 Ot V58.63 LONG-TERM( CURRENT)USE OF ANTIPLATELET/AN 03/30/2012 Ot V58.66 LONG-TERM ( CURRENT) USE OF ASPIRIN 03/30/2012 Ot V58.69 OTH MED,LT, CURRENT USE 04/19/2012 CASEY SIMPSON APRN S 305.1 NONDEPENDENT TOBACCO USE DISORDER 04/19/2012 305.1 NONDEPENDENT TOBACCO USE DISORDER 04/19/2012 305.1 NONDEPENDENT TOBACCO USE DISORDER 04/19/2012 305.1 NONDEPENDENT TOBACCO USE DISORDER 04/19/2012 305.1 NONDEPENDENT TOBACCO USE DISORDER 04/19/2012 MURRAY PEREZ, DANYA Malloy 305.1 NONDEPENDENT TOBACCO USE DISORDER 04/19/2012 CASEY SIMPSON APRN S 305.1 NONDEPENDENT TOBACCO USE DISORDER 04/19/2012 CASEY SIMPSON APRN S 305.1 NONDEPENDENT TOBACCO USE DISORDER 04/19/2012 BLAS RENEE APRN A 305.1 NONDEPENDENT TOBACCO USE DISORDER 04/19/2012 CASEY SIMPSON APRN S 305.1 NONDEPENDENT TOBACCO USE DISORDER 04/19/2012 MARIVEL RENEE APRNIDI A 305.1 NONDEPENDENT TOBACCO USE DISORDER 04/19/2012 CHELA PEREZ, SHANA 305.1 NONDEPENDENT TOBACCO USE DISORDER 04/19/2012 CASEY SIMPSON APRN S 305.1 NONDEPENDENT TOBACCO USE DISORDER 04/19/2012 CASEY SIMPSON APRN S 305.1 NONDEPENDENT TOBACCO USE DISORDER 04/19/2012 CASEY SIMPSON APRN S 305.1 NONDEPENDENT TOBACCO USE DISORDER 04/19/2012 THELMABLAS Hamilton APRN A 305.1 NONDEPENDENT TOBACCO USE DISORDER 04/19/2012 ОЛЕГ KWON MD 305.1 NONDEPENDENT TOBACCO USE DISORDER 07/30/2012 783.21 recent weight loss (___ lbs) [reported] 07/30/2012 783.21 recent weight loss (___ lbs) [reported] 07/30/2012 783.21 recent weight loss (___ lbs) [reported] 07/30/2012 783.21 recent weight loss (___ lbs) [reported] 07/30/2012 MURRAY PEREZ, DANYA Malloy 783.21 recent weight loss (___ lbs) [reported] 07/30/2012 CASEY SIMPSON APRN S 783.21 recent weight loss (___ lbs) [reported] 07/30/2012 ALICE SIMPSON APRNA S 783.21 recent weight loss (___ lbs) [reported] 07/30/2012 BLAS RENEE APRN A 783.21 recent weight loss (___ lbs) [reported] 07/30/2012 CASEY SIMPSON APRN S 783.21 recent weight loss (___ lbs) [reported] 07/30/2012 BLAS RENEE APRN A 783.21 recent weight loss (___ lbs) [reported] 07/30/2012 SHANA YORK MD 783.21 recent weight loss (___ lbs) [reported] 07/30/2012 ALICE SIMPSON APRNA S 783.21 RECENT WEIGHT LOSS (___ LBS) [REPORTED] 07/30/2012 ALICE SIMPSON APRNA S 783.21 RECENT WEIGHT LOSS (___ LBS) [REPORTED] 07/30/2012 CASYE SIMPSON APRN S 783.21 RECENT WEIGHT LOSS (___ LBS) [REPORTED] 07/30/2012 THELMADORI AQUINO, BLAS A 783.21 RECENT WEIGHT LOSS (___ LBS) [REPORTED] 07/30/2012 ОЛЕГ KWON MD N 783.21 RECENT WEIGHT LOSS (___ LBS) [REPORTED] 10/08/2012 MURRAY PEREZ, DANYA M Ot 530.10 ESOPHAGITIS NOS 10/08/2012 MURRAY PEREZ, DANYA Malloy Ot 535.40 OTH SPECIFIED GASTRITIS,W/O MENTION OF H 10/08/2012 MURRAY PEREZ, DANYA Malloy Ot 535.50 UNSP GASTRITIS GASTRODUODENITIS W/O ME 10/08/2012 MURRAY PEREZ, DANYA Malloy Ot V12.72 PERSONAL HISTORY OF COLONIC POLYPS 03/12/2013 TATIANA AQUINO CASEY S 781.0 ABNORMAL INVOLUNTARY MOVEMENTS 03/12/2013 DUKE SIMPSON APRNNDA S V76.12 MAMMOGRAM SCREENING 03/12/2013 DUKE SIMPSON APRNNDA S 781.0 ABNORMAL INVOLUNTARY MOVEMENTS 03/12/2013 TATIANA AQUINO CASEY S V76.12 MAMMOGRAM SCREENING 03/12/2013 THELMA AQUINO, BLAS A 781.0 ABNORMAL INVOLUNTARY MOVEMENTS 03/12/2013 THELMADORI AQUINO, BLAS A V76.12 MAMMOGRAM SCREENING 03/12/2013 TATIANA AQUINO CASEY S 781.0 ABNORMAL INVOLUNTARY MOVEMENTS 03/12/2013 TATIANA AQUINO CASEY S V76.12 MAMMOGRAM SCREENING 03/12/2013 THELMADORI AQUINO, BLAS A 781.0 ABNORMAL INVOLUNTARY MOVEMENTS 03/12/2013 THELMA APRN, BLAS A V76.12 MAMMOGRAM SCREENING 03/12/2013 SHANA YORK MD 781.0 ABNORMAL INVOLUNTARY MOVEMENTS 03/12/2013 SHANA YORK MD V76.12 MAMMOGRAM SCREENING 03/12/2013 DUKE SIMPSON APRNNDA S 781.0 ABNORMAL INVOLUNTARY MOVEMENTS 03/12/2013 TATIANA AQUINO CASEY S V76.12 MAMMOGRAM SCREENING 03/12/2013 DUKE SIMPSON APRNNDA S 781.0 ABNORMAL INVOLUNTARY MOVEMENTS 03/12/2013 DUKE SIMPSON APRNNDA S V76.12 MAMMOGRAM SCREENING 03/12/2013 TATIANA AQUINO CASEY S 781.0 ABNORMAL INVOLUNTARY MOVEMENTS 03/12/2013 TATIANA AQUINO, CASEY S V76.12 MAMMOGRAM SCREENING 03/12/2013 THELMA APRN, BLAS A 781.0 ABNORMAL INVOLUNTARY MOVEMENTS 03/12/2013 THELMA COMPUTER OPERATIONS ANALYST, BLAS A V76.12 MAMMOGRAM SCREENING 03/12/2013 ОЛЕГ KWON MD N 781.0 ABNORMAL INVOLUNTARY MOVEMENTS 03/12/2013 ОЛЕГ KWON MD N V76.12 MAMMOGRAM SCREENING 03/26/2013 TATIANA AQUINO, CASEY S 215.2 OTHER BENIGN NEOPLASM OF CONNECTIVE AND OTHER SOFT TISSUE OF UPPER LIMB INCLUDING SHOULDER 03/26/2013 TATIANA AQUINO CASEY S 333.1 ESSENTIAL AND OTHER SPECIFIED FORMS OF TREMOR 03/26/2013 THELMA COMPUTER OPERATIONS ANALYST, BLAS A 215.2 OTHER BENIGN NEOPLASM OF CONNECTIVE AND OTHER SOFT TISSUE OF UPPER LIMB INCLUDING SHOULDER 03/26/2013 THELMA APRN, BLAS A 333.1 ESSENTIAL AND OTHER SPECIFIED FORMS OF TREMOR 03/26/2013 TATIANAROBERTO CARLOS AQUINO, CASEY S 215.2 OTHER BENIGN NEOPLASM OF CONNECTIVE AND OTHER SOFT TISSUE OF UPPER LIMB INCLUDING SHOULDER 03/26/2013 TATIANAROBERTO CARLOS AQUINO, CASEY S 333.1 ESSENTIAL AND OTHER SPECIFIED FORMS OF TREMOR 03/26/2013 THELMA APRN, BLAS A 215.2 OTHER BENIGN NEOPLASM OF CONNECTIVE AND OTHER SOFT TISSUE OF UPPER LIMB INCLUDING SHOULDER 03/26/2013 THELMAJoy AQUINO BLAS A 333.1 ESSENTIAL AND OTHER SPECIFIED FORMS OF TREMOR 03/26/2013 SHANA YORK MD 215.2 OTHER BENIGN NEOPLASM OF CONNECTIVE AND OTHER SOFT TISSUE OF UPPER LIMB INCLUDING SHOULDER 03/26/2013 SHANA YORK MD 333.1 ESSENTIAL AND OTHER SPECIFIED FORMS OF TREMOR 03/26/2013 TATIANAROBERTO CARLOS AQUINO, CASEY S 215.2 OTHER BENIGN NEOPLASM OF CONNECTIVE AND OTHER SOFT TISSUE OF UPPER LIMB INCLUDING SHOULDER 03/26/2013 TATIANA COMPUTER OPERATIONS ANALYST, CASEY S 333.1 ESSENTIAL AND OTHER SPECIFIED FORMS OF TREMOR 03/26/2013 TATIANA COMPUTER OPERATIONS ANALYST, CASEY S 215.2 OTHER BENIGN NEOPLASM OF CONNECTIVE AND OTHER SOFT TISSUE OF UPPER LIMB INCLUDING SHOULDER 03/26/2013 TATIANA AQUINO CASEY S 333.1 ESSENTIAL AND OTHER SPECIFIED FORMS OF TREMOR 03/26/2013 DUKE SIMPSON APRNNDA S 215.2 OTHER BENIGN NEOPLASM OF CONNECTIVE AND OTHER SOFT TISSUE OF UPPER LIMB INCLUDING SHOULDER 03/26/2013 DUKE SIMPSON APRNNDA S 333.1 ESSENTIAL AND OTHER SPECIFIED FORMS OF TREMOR 03/26/2013 THELMAMARIVEL Hamilton APRNIDI A 215.2 OTHER BENIGN NEOPLASM OF CONNECTIVE AND OTHER SOFT TISSUE OF UPPER LIMB INCLUDING SHOULDER 03/26/2013 THELMAMARIVEL Hamilton APRNIDI A 333.1 ESSENTIAL AND OTHER SPECIFIED FORMS OF TREMOR 03/26/2013 ОЛЕГ KWON MD 215.2 OTHER BENIGN NEOPLASM OF CONNECTIVE AND OTHER SOFT TISSUE OF UPPER LIMB INCLUDING SHOULDER 03/26/2013 ОЛЕГ KWON MD 333.1 ESSENTIAL AND OTHER SPECIFIED FORMS OF TREMOR 05/22/2013 THELMAMARIVEL MEADOWS APRNIDI A V65.42 COUNSELING - SMOKING CESSATION 05/22/2013 THELMAMARIVEL Hamilton APRNIDI A V65.49 OTHER SPECIFIED COUNSELING 05/22/2013 THELMAMARIVEL Hamilton APRNIDI A V72.31 AUTOMATION MACHINE OPERATOR EXAM, ROUTINE 05/22/2013 THELMAMARIVEL Hamilton APRNIDI A V76.10 BREAST CANCER SCREENING 05/22/2013 MARIVEL RENEE APRNIDI A V82.81 SPECIAL SCREENING FOR OSTEOPOROSIS 05/22/2013 DUKE SIMPSON APRNNDA S V65.42 COUNSELING - SMOKING CESSATION 05/22/2013 DUKE SIMPSON APRNNDA S V65.49 OTHER SPECIFIED COUNSELING 05/22/2013 DUKE SIMPSON APRNNDA S V72.31 AUTOMATION MACHINE OPERATOR EXAM, ROUTINE 05/22/2013 DUKE SIMPSON APRNNDA S V76.10 BREAST CANCER SCREENING 05/22/2013 DUKE SIMPSON APRNNDA S V82.81 SPECIAL SCREENING FOR OSTEOPOROSIS 05/22/2013 THELMAMARIVEL MEADOWS APRNIDI A V65.42 COUNSELING - SMOKING CESSATION 05/22/2013 THELMAJoy AQUINO BLAS A V65.49 OTHER SPECIFIED COUNSELING 05/22/2013 THELMAMARIVEL Hamilton APRNIDI A V72.31 AUTOMATION MACHINE OPERATOR EXAM, ROUTINE 05/22/2013 THELMAMARIVEL Hamilton APRNIDI A V76.10 BREAST CANCER SCREENING 05/22/2013 THELMA COMPUTER OPERATIONS ANALYST, BLAS A V82.81 SPECIAL SCREENING FOR OSTEOPOROSIS 05/22/2013 SHANA YORK MD V65.42 COUNSELING - SMOKING CESSATION 05/22/2013 SHANA YORK MD V65.49 OTHER SPECIFIED COUNSELING 05/22/2013 SHANA YROK MD V72.31 AUTOMATION MACHINE OPERATOR EXAM, ROUTINE 05/22/2013 SHANA YORK MD V76.10 BREAST CANCER SCREENING 05/22/2013 SHANA YORK MD V82.81 SPECIAL SCREENING FOR OSTEOPOROSIS 05/22/2013 TATIANA COMPUTER OPERATIONS ANALYST, CASEY S V65.42 COUNSELING - SMOKING CESSATION 05/22/2013 TATIANA COMPUTER OPERATIONS ANALYST, CASEY S V65.49 OTHER SPECIFIED COUNSELING 05/22/2013 TATIANA COMPUTER OPERATIONS ANALYST, CASEY S V72.31 AUTOMATION MACHINE OPERATOR EXAM, ROUTINE 05/22/2013 TATIANA COMPUTER OPERATIONS ANALYST, CASEY S V76.10 BREAST CANCER SCREENING 05/22/2013 TATIANA COMPUTER OPERATIONS ANALYST, CASEY S V82.81 SPECIAL SCREENING FOR OSTEOPOROSIS 05/22/2013 TATIANA COMPUTER OPERATIONS ANALYST, CASEY S V65.42 COUNSELING - SMOKING CESSATION 05/22/2013 TATIANA COMPUTER OPERATIONS ANALYST, CASEY S V65.49 OTHER SPECIFIED COUNSELING 05/22/2013 TATIANA COMPUTER OPERATIONS ANALYST, CASEY S V72.31 AUTOMATION MACHINE OPERATOR EXAM, ROUTINE 05/22/2013 TATIANA COMPUTER OPERATIONS ANALYST, CASEY S V76.10 BREAST CANCER SCREENING 05/22/2013 TATIANA COMPUTER OPERATIONS ANALYST, CASEY S V82.81 SPECIAL SCREENING FOR OSTEOPOROSIS 05/22/2013 TATIANA COMPUTER OPERATIONS ANALYST, CASEY S V65.42 COUNSELING - SMOKING CESSATION 05/22/2013 TATIANA COMPUTER OPERATIONS ANALYST, CASEY S V65.49 OTHER SPECIFIED COUNSELING 05/22/2013 TATIANA COMPUTER OPERATIONS ANALYST, CASEY S V72.31 AUTOMATION MACHINE OPERATOR EXAM, ROUTINE 05/22/2013 TATIANA COMPUTER OPERATIONS ANALYST, CASEY S V76.10 BREAST CANCER SCREENING 05/22/2013 TATIANA COMPUTER OPERATIONS ANALYST, CASEY S V82.81 SPECIAL SCREENING FOR OSTEOPOROSIS 05/22/2013 THELMA COMPUTER OPERATIONS ANALYST, BLAS A V65.42 COUNSELING - SMOKING CESSATION 05/22/2013 THELMA KENIA BLAS A V65.49 OTHER SPECIFIED COUNSELING 05/22/2013 THELMA COMPUTER OPERATIONS ANALYST BLAS A V72.31 AUTOMATION MACHINE OPERATOR EXAM, ROUTINE 05/22/2013 BLAS RENEE APRN A V76.10 BREAST CANCER SCREENING 05/22/2013 BLAS RENEE APRN A V82.81 SPECIAL SCREENING FOR OSTEOPOROSIS 05/22/2013 ОЛЕГ KWON MD V65.42 COUNSELING - SMOKING CESSATION 05/22/2013 ОЛЕГ KWON MD V65.49 OTHER SPECIFIED COUNSELING 05/22/2013 ОЛЕГ KWON MD V72.31 AUTOMATION MACHINE OPERATOR EXAM, ROUTINE 05/22/2013 ОЛЕГ KWON MD V76.10 BREAST CANCER SCREENING 05/22/2013 ОЛЕГ KWON MD V82.81 SPECIAL SCREENING FOR OSTEOPOROSIS 06/18/2013 CASEY SIMPSON APRN S 696.1 PSORIASIS 06/18/2013 BLAS RENEE APRN A 696.1 PSORIASIS 06/18/2013 SHANA YORK MD 696.1 PSORIASIS 06/18/2013 ALICE SIMPSON APRNA S 696.1 PSORIASIS 06/18/2013 ALICE SIMPSON APRNA S 696.1 PSORIASIS 06/18/2013 ALICE SIMPSON APRNA S 696.1 PSORIASIS 06/18/2013 BLAS RENEE APRN A 696.1 PSORIASIS 06/18/2013 ОЛЕГ KWON MD 696.1 PSORIASIS 06/26/2013 BLAS RENEE APRN A 733.90 DISORDER OF BONE AND CARTILAGE UNSPECIFIED 06/26/2013 SHANA YORK MD 733.90 DISORDER OF BONE AND CARTILAGE UNSPECIFIED 06/26/2013 CASEY SIMPSON APRN S 733.90 DISORDER OF BONE AND CARTILAGE UNSPECIFIED 06/26/2013 ALICE SIMPSON APRNA S 733.90 DISORDER OF BONE AND CARTILAGE UNSPECIFIED 06/26/2013 CASEY SIMPSON APRN S 733.90 DISORDER OF BONE AND CARTILAGE UNSPECIFIED 06/26/2013 BLAS RENEE APRN A 733.90 DISORDER OF BONE AND CARTILAGE UNSPECIFIED 06/26/2013 ОЛЕГ KWON MD 733.90 DISORDER OF BONE AND CARTILAGE UNSPECIFIED 07/09/2013 SHANA YORK MD F Ot 272.4 HYPERLIPIDEMIA NEC/NOS 07/09/2013 CHELA PEREZ SHANA Grossman Ot 300.00 ANXIETY STATE NOS 07/09/2013 CHELA PEREZ, SHANA Grossman Ot 305.1 TOBACCO USE DISORDER 07/09/2013 CHELA PEREZ, SHANA Grossman Ot 311 DEPRESSIVE DISORDER NEC 07/09/2013 CHELA PEREZ, SHANA Grossman Ot 401.9 HYPERTENSION NOS 07/09/2013 CHELA PEREZ, SHANA Grossman Ot 414.01 CORONARY ATHEROSCLEROSIS OF [place] CORON 07/09/2013 CHELA PEREZ, SHANA Grossman Ot 491.21 OBSTR CHRONIC BRONCHITIS, W (ACUTE) EXAC 07/09/2013 CHELA PEREZ, SHANA Grossman Ot 553.3 DIAPHRAGMATIC HERNIA 07/09/2013 CHELA PEREZ, SHANA Grossman Ot 562.10 DIVERTICULOSIS COLON (W/O MENT OF HEMORR 07/09/2013 SHANA YORK MD Ot 753.12 POLYCYSTIC KIDNEY, UNSPECIFIED TYPE 07/09/2013 CHELA PEREZ, SHANA Grossman Ot 783.21 LOSS OF WEIGHT 07/09/2013 SHANA YORK MD Ot 786.09 RESPIRATORY ABNORM NEC 07/09/2013 CHELA PEREZ, SHANA Grossman Ot 786.50 CHEST PAIN NOS 07/09/2013 SHANA YORK MD Ot 787.91 DIARRHEA 07/09/2013 SHANA YORK MD Ot V45.82 PERCUTANEOUS TRANSLUM CORON ANGIOPLASTY 07/16/2013 SHANA YORK MD 414.00 CAD 07/16/2013 SHANA YORK MD 496 COPD 07/16/2013 ALICE SIMPSON APRNA S 414.00 CAD 07/16/2013 DUKE SIMPSON APRNNDA S 496 COPD 07/16/2013 DUKE SIMPSON APRNNDA S 414.00 CAD 07/16/2013 TATIANA COMPUTER OPERATIONS ANALYST, CASEY S 496 COPD 07/16/2013 TATIANA AQUINO CASEY S 414.00 CAD 07/16/2013 DUKE SIMPSON APRNNDA S 496 COPD 07/16/2013 THELMA COMPUTER OPERATIONS ANALYST, BLAS A 414.00 CAD 07/16/2013 THELMA COMPUTER OPERATIONS ANALYST, BLAS A 496 COPD 07/16/2013 CHER PEREZ, ОЛЕГ Hamilton 414.00 CAD 07/16/2013 ОЛЕГ KWON MD 49Randy COPD 02/22/2014 ALICE SIMPSON APRNA S 719.47 PAIN- FOOT 02/22/2014 CASEY SIMPSON APRN S 719.47 PAIN- FOOT 02/22/2014 BLAS RENEE APRN 719.47 PAIN- FOOT 02/22/2014 ОЛЕГ KWON MD 719.47 PAIN- FOOT 03/24/2014 Ot V76.12 03/24/2014 Ot 401.9 03/24/2014 Ot 414.00 03/24/2014 Ot 786.09 03/24/2014 Ot 783.21 03/24/2014 Ot 786.50 03/24/2014 MURRAY PEREZ, DANYA Malloy Ot V72.84 03/24/2014 ARI WRIGHT Ot 783.21 03/24/2014 ARI WRIGHT Ot V81.5 03/24/2014 BLAS RENEE APRN Ot 733.00 03/24/2014 BLAS RENEE APRN Ot 733.90 03/24/2014 SHANA OHARA MD Ot 496 03/24/2014 SHANA OHARA MD Ot 783.21 03/24/2014 SHANA OHARA MD Ot 786.2 03/24/2014 LAENN GILL DO Ot 305.1 03/24/2014 LEANN GILL DO Ot 496 03/24/2014 LEANN GILL DO Ot 305.1 03/24/2014 LEANN GILL DO Ot 492.8 03/27/2014 MELISSA PEREZ, JORGE Peres Ot 272.4 03/27/2014 JORGE TORRES MD Ot 401.9 03/27/2014 JORGE TORRES MD Ot 414.00 03/27/2014 JORGE TORRES MD Ot 785.1 03/27/2014 JORGE TORRES MD Ot 786.09 04/02/2014 Ot V76.12 04/02/2014 Ot 786.52 04/02/2014 Ot V81.5 04/02/2014 Ot 272.4 04/02/2014 Ot 401.9 04/02/2014 Ot 786.09 04/02/2014 Ot 786.50 04/02/2014 Ot V64.3 04/02/2014 Ot 998.12 04/02/2014 Ot 433.10 04/02/2014 Ot 401.9 04/02/2014 Ot 414.00 04/02/2014 Ot 786.09 04/02/2014 MELISSA PEREZ, JORGE Peres Ot 272.4 04/02/2014 MELISSA PEREZ, JORGE Peres Ot 401.9 04/02/2014 MELISSA PEREZ, JORGE Peres Ot 414.00 04/02/2014 JORGE TORRES MD Ot 785.1 04/02/2014 JORGE TORRES MD Ot 786.09 04/02/2014 Ot V76.12 04/02/2014 Ot 786.52 04/02/2014 Ot V81.5 04/02/2014 Ot 272.4 04/02/2014 Ot 401.9 04/02/2014 Ot 786.09 04/02/2014 Ot 786.50 04/02/2014 Ot V64.3 04/02/2014 Ot 998.12 04/02/2014 Ot 433.10 04/02/2014 Ot 401.9 04/02/2014 Ot 414.00 04/02/2014 Ot 786.09 04/02/2014 MELISSA PEREZ, JORGE Peres Ot 272.4 04/02/2014 MELISSA PEREZ, JORGE Peres Ot 401.9 04/02/2014 MELISSA PEREZ, JORGE Peres Ot 414.00 04/02/2014 JORGE TORRES MD Ot 785.1 04/02/2014 JORGE TORRES MD Ot 786.09 05/05/2014 LEANN GILL DO Ot 305.1 05/05/2014 LEANN GILL DO Ot 492.8 05/05/2014 LEANN GILL DO Ot 305.1 05/05/2014 LEANN GILL DO Ot 496 05/28/2014 Ot V76.12 05/28/2014 Ot 401.9 05/28/2014 Ot 414.00 05/28/2014 Ot 786.09 05/28/2014 Ot 783.21 05/28/2014 Ot 786.50 05/28/2014 DANYA GAO MD Ot V72.84 05/28/2014 ARI WRIGHT Ot 783.21 05/28/2014 ARI WRIGHT Ot V81.5 05/28/2014 BLAS RENEE APRN Ot 733.00 05/28/2014 BLAS RENEE APRN Ot 733.90 05/28/2014 MAYDA PEREZ, SHANA Zaldivar Ot 496 05/28/2014 MAYDA PEREZ, SHANA Zaldivar Ot 783.21 05/28/2014 SHANA OHARA MD Ot 786.2 05/28/2014 LEANN GILL DO Ot 305.1 05/28/2014 LEANN GILL DO Ot 496 05/28/2014 LEANN GILL DO Ot 305.1 05/28/2014 LEANN GILL DO M Ot 492.8 05/28/2014 MELISSA PEREZ, JORGE Peres Ot 272.4 05/28/2014 MELISSA PEREZ, JORGE Peres Ot 401.9 05/28/2014 MELISSA PEREZ, JORGE Peres Ot 414.00 05/28/2014 MELISSA PEREZ, JORGE Peres Ot 785.1 05/28/2014 MELISSA PEREZ, JORGE Peres Ot 786.09 05/29/2014 BLAS RENEE APRN V65.42 COUNSELING - SMOKING CESSATION 05/29/2014 BLAS RENEE APRN V76.10 BREAST CANCER SCREENING 05/29/2014 ОЛЕГ KWON MD V65.42 COUNSELING - SMOKING CESSATION 05/29/2014 ОЛЕГ KWON MD V76.10 BREAST CANCER SCREENING 06/13/2014 Ot V76.12 06/13/2014 Ot 401.9 06/13/2014 Ot 414.00 06/13/2014 Ot 786.09 06/13/2014 Ot 783.21 06/13/2014 Ot 786.50 06/13/2014 DANYA GAO MD Ot V72.84 06/13/2014 ARI WRIGHT Ot 783.21 06/13/2014 ARI WRIGHT Ot V81.5 06/13/2014 BLAS RENEE APRN Ot 733.00 06/13/2014 BLAS RENEE APRN Ot 733.90 06/13/2014 MAYDA PEREZ, SHANA Zaldivar Ot 496 06/13/2014 SHANA OHARA MD Ot 783.21 06/13/2014 SHANA OHARA MD Ot 786.2 06/13/2014 PADILLA GILL DOALANNA Malloy Ot 305.1 06/13/2014 JAIRO DO LEANN Malloy Ot 496 06/13/2014 JAIRO LEANN Ot 305.1 06/13/2014 LEANN GILL DO Ot 492.8 06/13/2014 JORGE TORRES MD Ot 272.4 06/13/2014 JORGE TORRES MD Ot 401.9 06/13/2014 JORGE TORRES MD Ot 414.00 06/13/2014 JORGE TORRES MD Ot 785.1 06/13/2014 JORGE TORRES MD Ot 786.09 06/22/2014 JORGE TORRES MD Ot 272.4 HYPERLIPIDEMIA NEC/NOS 06/22/2014 JORGE TORRES MD Ot 401.9 HYPERTENSION NOS 06/22/2014 JORGE TORRES MD Ot 414.00 CORON ATHEROSCLER NOS TYPE VESSEL, NATIV 06/22/2014 JORGE TORRES MD Ot 785.1 PALPITATIONS 06/22/2014 JORGE TORRES MD Ot 786.09 RESPIRATORY ABNORM NEC 06/25/2014 CHER PEREZ, ОЛЕГ N 238.2 NEOPLASM OF UNCERTAIN BEHAVIOR OF SKIN 07/07/2014 BLAS RENEE COMPUTER OPERATIONS ANALYST Ot 733.00 07/07/2014 BLAS RENEE COMPUTER OPERATIONS ANALYST Ot 733.90 07/07/2014 SHANA OHARA MD Ot 496 07/07/2014 SHANA OHARA MD Ot 783.21 07/07/2014 SHANA OHARA MD Ot 786.2 07/14/2014 LEANN GILL DO Ot 305.1 07/14/2014 LEANN GILL DO Ot 496 07/14/2014 LEANN GILL DO Ot 305.1 07/14/2014 LEANN GILL DO Ot 492.8 03/16/2015 Ot V76.12 03/16/2015 Ot 401.9 03/16/2015 Ot 414.00 03/16/2015 Ot 786.09 03/16/2015 Ot 783.21 03/16/2015 Ot 786.50 03/16/2015 MURRAY PEREZ, DANYA Malloy Ot V72.84 03/16/2015 ARI WRIGHT Ot 783.21 03/16/2015 ARI WRIGHT Ot V81.5 03/16/2015 BLAS RENEE COMPUTER OPERATIONS ANALYST Ot 733.00 03/16/2015 BLAS RENEE COMPUTER OPERATIONS ANALYST Ot 733.90 03/16/2015 SHANA OHARA MD Ot 496 03/16/2015 SHANA OHARA MD Ot 783.21 03/16/2015 SHANA OHARA MD Ot 786.2 03/16/2015 Ot 272.4 03/16/2015 Ot 401.9 03/16/2015 Ot 414.00 03/16/2015 Ot 785.1 03/16/2015 Ot 786.09 03/16/2015 ROCIO ELIZALDE APRN Ot 305.1 03/16/2015 ROCIO ELIZALDE APRN Ot 486 03/16/2015 ROCIO ELIZALDE APRN Ot 496 03/16/2015 LEIGH TORRES MD Ot F17.210 NICOTINE DEPENDENCE, CIGARETTES, UNCOMPL 03/16/2015 LEIGH TORRES MD Ot J01.90 ACUTE SINUSITIS, UNSPECIFIED 03/16/2015 LEIGH TORRES MD Ot J44.1 CHRONIC OBSTRUCTIVE PULMONARY DISEASE W 03/16/2015 LEIGH TORRES MD Ot R00.0 TACHYCARDIA, UNSPECIFIED 03/16/2015 LEIGH TORRES MD Ot Z79.899 OTHER HALFWAY (CURRENT) DRUG THERAPY 03/16/2015 LEIGH TORRES MD Ot Z99.81 DEPENDENCE ON SUPPLEMENTAL OXYGEN 03/16/2015 Ot V76.12 03/16/2015 Ot 401.9 03/16/2015 Ot 414.00 03/16/2015 Ot 786.09 03/16/2015 Ot 783.21 03/16/2015 Ot 786.50 03/16/2015 DANYA GAO MD Ot V72.84 03/16/2015 ARI WRIGHT Ot 783.21 03/16/2015 ARI WRIGHT Ot V81.5 03/16/2015 BLAS RENEE COMPUTER OPERATIONS ANALYST Ot 733.00 03/16/2015 BLAS RENEE COMPUTER OPERATIONS ANALYST Ot 733.90 03/16/2015 SHANA OHARA MD Ot 496 03/16/2015 MAYDA PEREZ, SHANA Zaldivar Ot 783.21 03/16/2015 MAYDA PEREZ, SHANA Zaldivar Ot 786.2 03/16/2015 Ot 272.4 03/16/2015 Ot 401.9 03/16/2015 Ot 414.00 03/16/2015 Ot 785.1 03/16/2015 Ot 786.09 03/16/2015 ROCIO ELIZALDE APRN Ot 305.1 03/16/2015 ROCIO ELIZALDE APRN Ot 486 03/16/2015 ROCIO ELIZALDE APRN Ot 496 04/26/2015 CATHLEEN DUARTE CHERYLE Flynn Ot F17.210 NICOTINE DEPENDENCE, CIGARETTES, UNCOMPL 04/26/2015 CATHLEEN DUARTE CHERYLE Flynn Ot J20.9 ACUTE BRONCHITIS, UNSPECIFIED 04/26/2015 CATHLEEN DUARTE CHERYLE Flynn Ot J44.0 CHRONIC OBSTRUCTIVE PULMON DISEASE W ACU 04/26/2015 CATHLEEN DUARTE CHERYLE Flynn Ot Z99.81 DEPENDENCE ON SUPPLEMENTAL OXYGEN 04/26/2015 Ot V76.12 04/26/2015 Ot 401.9 04/26/2015 Ot 414.00 04/26/2015 Ot 786.09 04/26/2015 Ot 783.21 04/26/2015 Ot 786.50 04/26/2015 MURRAY PEREZ, DANYA Malloy Ot V72.84 04/26/2015 ARI WRIGHT Ot 783.21 04/26/2015 ARI WRIGHT Ot V81.5 04/26/2015 BLAS RENEE COMPUTER OPERATIONS ANALYST Ot 733.00 04/26/2015 BLAS RENEE COMPUTER OPERATIONS ANALYST Ot 733.90 04/26/2015 MAYDA PEREZ, SHANA Zaldivar Ot 496 04/26/2015 MAYDA PEREZ, SHANA Zaldivar Ot 783.21 04/26/2015 MAYDA PEREZ, SHANA Zaldivar Ot 786.2 04/26/2015 Ot 272.4 04/26/2015 Ot 401.9 04/26/2015 Ot 414.00 04/26/2015 Ot 785.1 04/26/2015 Ot 786.09 04/26/2015 ROCIO ELIZALDE COMPUTER OPERATIONS ANALYST Ot 305.1 04/26/2015 ROCIO ELIZALDE APRN Ot 486 04/26/2015 ROCIO ELIZALDE APRN Ot 496 06/04/2015 ROCIO ELIZALDE COMPUTER OPERATIONS ANALYST Ot J44.9 06/04/2015 ROCIO ELIZALDE COMPUTER OPERATIONS ANALYST Ot Z72.0 06/04/2015 ROCIO ELIZALDE COMPUTER OPERATIONS ANALYST Ot J44.9 06/04/2015 ROCIO ELIZALDE COMPUTER OPERATIONS ANALYST Ot Z72.0 10/28/2015 Ot V76.12 OTH SCREEN MAMMO-MALIGN NEOPLASM OF [place] 10/28/2015 Ot 401.9 HYPERTENSION NOS 10/28/2015 Ot 414.00 CORON ATHEROSCLER NOS TYPE VESSEL, NATIV 10/28/2015 Ot 786.09 RESPIRATORY ABNORM NEC 10/28/2015 Ot 783.21 LOSS OF WEIGHT 10/28/2015 Ot 786.50 CHEST PAIN NOS 10/28/2015 DANYA GAO MD Ot V72.84 EXAM PRE-OPERATIVE NOS 10/28/2015 ARI WRIGHT Ot 783.21 LOSS OF WEIGHT 10/28/2015 ARI WRIGHT Ot V81.5 SCREEN FOR NEPHROPATHY 10/28/2015 BLAS RENEE COMPUTER OPERATIONS ANALYST Ot 733.00 OSTEOPOROSIS NOS 10/28/2015 BLAS RENEE COMPUTER OPERATIONS ANALYST Ot 733.90 BONE CARTILAGE DIS NOS 10/28/2015 SHANA OHARA MD Ot 496 CHR AIRWAY OBSTRUCT NEC 10/28/2015 SHANA OHARA MD Ot 783.21 LOSS OF WEIGHT 10/28/2015 SHANA OHARA MD Ot 786.2 COUGH 10/28/2015 Ot 272.4 HYPERLIPIDEMIA NEC/NOS 10/28/2015 Ot 401.9 HYPERTENSION NOS 10/28/2015 Ot 414.00 CORON ATHEROSCLER NOS TYPE VESSEL, NATIV 10/28/2015 Ot 785.1 PALPITATIONS 10/28/2015 Ot 786.09 RESPIRATORY ABNORM NEC 10/28/2015 ROCIO ELIZALDE COMPUTER OPERATIONS ANALYST Ot 305.1 TOBACCO USE DISORDER 10/28/2015 ROCIO ELIZALDE COMPUTER OPERATIONS ANALYST Ot 486 PNEUMONIA, ORGANISM NOS 10/28/2015 ROCIO ELIZALDE COMPUTER OPERATIONS ANALYST Ot 496 CHR AIRWAY OBSTRUCT NEC 10/28/2015 ROCIO ELIZALDE COMPUTER OPERATIONS ANALYST Ot J44.9 CHRONIC OBSTRUCTIVE PULMONARY DISEASE, U 10/28/2015 ROCIO ELIZALDE COMPUTER OPERATIONS ANALYST Ot Z72.0 TOBACCO USE 10/28/2015 CASEY SIMPSON ACCESS REGISTRAR Ot R10.32 LEFT LOWER QUADRANT PAIN 10/29/2015 Ot V76.12 OTH SCREEN MAMMO-MALIGN NEOPLASM OF [place] 10/29/2015 Ot 401.9 HYPERTENSION NOS 10/29/2015 Ot 414.00 CORON ATHEROSCLER NOS TYPE VESSEL, NATIV 10/29/2015 Ot 786.09 RESPIRATORY ABNORM NEC 10/29/2015 Ot 783.21 LOSS OF WEIGHT 10/29/2015 Ot 786.50 CHEST PAIN NOS 10/29/2015 MURRAY PEREZ, DANYA Malloy Ot V72.84 EXAM PRE-OPERATIVE NOS 10/29/2015 ARI WRIGHT Ot 783.21 LOSS OF WEIGHT 10/29/2015 ARI WRIGHT Ot V81.5 SCREEN FOR NEPHROPATHY 10/29/2015 BLAS RENEE COMPUTER OPERATIONS ANALYST Ot 733.00 OSTEOPOROSIS NOS 10/29/2015 BLAS RENEE COMPUTER OPERATIONS ANALYST Ot 733.90 BONE CARTILAGE DIS NOS 10/29/2015 SHANA OHARA MD Ot 496 CHR AIRWAY OBSTRUCT NEC 10/29/2015 SHANA OHARA MD Ot 783.21 LOSS OF WEIGHT 10/29/2015 SHANA OHARA MD Ot 786.2 COUGH 10/29/2015 Ot 272.4 HYPERLIPIDEMIA NEC/NOS 10/29/2015 Ot 401.9 HYPERTENSION NOS 10/29/2015 Ot 414.00 CORON ATHEROSCLER NOS TYPE VESSEL, NATIV 10/29/2015 Ot 785.1 PALPITATIONS 10/29/2015 Ot 786.09 RESPIRATORY ABNORM NEC 10/29/2015 ROCIO ELIZALDE APRN Ot 305.1 TOBACCO USE DISORDER 10/29/2015 ROCIO ELIZALDE APRN Ot 486 PNEUMONIA, ORGANISM NOS 10/29/2015 ROCIO ELIZALDE APRN Ot 496 CHR AIRWAY OBSTRUCT NEC 10/29/2015 ROCIO ELIZALDE APRN Ot J44.9 CHRONIC OBSTRUCTIVE PULMONARY DISEASE, U 10/29/2015 ROCIO ELIZALDE APRN Ot Z72.0 TOBACCO USE 10/29/2015 CASEY SIMPSON ACCESS REGISTRAR Ot R10.32 LEFT LOWER QUADRANT PAIN 10/30/2015 ROCIO ELIZALDE APRN Ot J44.9 CHRONIC OBSTRUCTIVE PULMONARY DISEASE, U 10/30/2015 ROCIO ELIZALDE APRN Ot J44.9 CHRONIC OBSTRUCTIVE PULMONARY DISEASE, U 10/30/2015 LAM ELIZALDEINE Lloyd COMPUTER OPERATIONS ANALYST Ot R06.09 OTHER FORMS OF DYSPNEA 10/30/2015 LAM ELIZALDEINE Lloyd COMPUTER OPERATIONS ANALYST Ot R09.02 HYPOXEMIA 10/30/2015 LAM ELIZALDEINE Lloyd COMPUTER OPERATIONS ANALYST Ot Z72.0 TOBACCO USE 11/04/2015 FIDE, ROCIO Lloyd COMPUTER OPERATIONS ANALYST Ot J44.9 CHRONIC OBSTRUCTIVE PULMONARY DISEASE, U 11/04/2015 FIDE, ROCIO Lloyd COMPUTER OPERATIONS ANALYST Ot R06.09 OTHER FORMS OF DYSPNEA 11/04/2015 FIDELAM BLUNTINE Lloyd COMPUTER OPERATIONS ANALYST Ot R09.02 HYPOXEMIA 11/04/2015 FIDELAM BLUNTINE Lloyd COMPUTER OPERATIONS ANALYST Ot Z72.0 TOBACCO USE 11/25/2015 ROCIO ELIZALDE COMPUTER OPERATIONS ANALYST Ot J44.9 CHRONIC OBSTRUCTIVE PULMONARY DISEASE, U 11/25/2015 LAM ELIZALDEINE Lloyd COMPUTER OPERATIONS ANALYST Ot R06.00 DYSPNEA, UNSPECIFIED 12/04/2015 ROCIO ELIZALDE COMPUTER OPERATIONS ANALYST Ot J44.9 CHRONIC OBSTRUCTIVE PULMONARY DISEASE, U 12/04/2015 FIDE, ROCIO Lloyd COMPUTER OPERATIONS ANALYST Ot R06.09 OTHER FORMS OF DYSPNEA 12/04/2015 FIDELAM BLUNTINE Lloyd COMPUTER OPERATIONS ANALYST Ot R09.02 HYPOXEMIA 12/04/2015 LAM ELIZALDEINE Llody COMPUTER OPERATIONS ANALYST Ot Z72.0 TOBACCO USE 12/15/2015 FIDE, ROCIO Desai COMPUTER OPERATIONS ANALYST Ot J44.9 CHRONIC OBSTRUCTIVE PULMONARY DISEASE, U 12/15/2015 FIDELAM BLUNTINE Lloyd COMPUTER OPERATIONS ANALYST Ot R06.00 DYSPNEA, UNSPECIFIED 01/29/2016 ROCIO ELIZALDE COMPUTER OPERATIONS ANALYST Ot J44.9 CHRONIC OBSTRUCTIVE PULMONARY DISEASE, U 01/29/2016 ROCIO ELIZALDE COMPUTER OPERATIONS ANALYST Ot R06.02 SHORTNESS OF BREATH 01/29/2016 ROCIO ELIZALDE Lloyd COMPUTER OPERATIONS ANALYST Ot R09.02 HYPOXEMIA 01/29/2016 Ot E78.2 MIXED HYPERLIPIDEMIA 01/29/2016 Ot I10 ESSENTIAL ( PRIMARY) HYPERTENSION 01/29/2016 Ot I25.10 ATHSCL HEART DISEASE OF [place] CORONARY 01/29/2016 Ot I65.23 OCCLUSION AND STENOSIS OF [place]ILATERAL [place] 01/29/2016 Ot J44.9 CHRONIC OBSTRUCTIVE PULMONARY DISEASE, U 01/29/2016 Ot R07.9 CHEST PAIN, UNSPECIFIED 02/18/2016 Ot E78.2 MIXED HYPERLIPIDEMIA 02/18/2016 Ot I10 ESSENTIAL ( PRIMARY) HYPERTENSION 02/18/2016 Ot I25.10 ATHSCL HEART DISEASE OF [place] CORONARY 02/18/2016 Ot I65.23 OCCLUSION AND STENOSIS OF [place]ILATERAL [place] 02/18/2016 Ot J44.9 CHRONIC OBSTRUCTIVE PULMONARY DISEASE, U 02/18/2016 Ot R07.9 CHEST PAIN, UNSPECIFIED 02/23/2016 ROCIO ELIZALDE APRN Ot J44.9 CHRONIC OBSTRUCTIVE PULMONARY DISEASE, U 02/23/2016 ROCIO ELIZALDE APRN Ot R09.02 HYPOXEMIA 02/25/2016 JORGE TORRES MD Ot E07.9 DISORDER OF THYROID, UNSPECIFIED 02/25/2016 JORGE TORRES MD Ot E78.2 MIXED HYPERLIPIDEMIA 02/25/2016 JORGE TORRES MD Ot I10 ESSENTIAL (PRIMARY) HYPERTENSION 02/25/2016 JORGE TORRES MD Ot I25.10 ATHSCL HEART DISEASE OF [place] CORONARY 02/25/2016 JORGE TORRES MD Ot I65.23 OCCLUSION AND STENOSIS OF [place]ILATERAL [place] 02/25/2016 JORGE TORRES MD Ot J44.9 CHRONIC OBSTRUCTIVE PULMONARY DISEASE, U 03/22/2016 ROCIO ELIZALDE APRN Ot J44.9 CHRONIC OBSTRUCTIVE PULMONARY DISEASE, U 03/22/2016 ROCIO ELIZALDE APRN Ot R09.02 HYPOXEMIA 04/14/2016 ROCIO ELIZALDE APRN Ot J44.9 CHRONIC OBSTRUCTIVE PULMONARY DISEASE, U 04/14/2016 ROCIO ELIZALDE APRN Ot R09.02 HYPOXEMIA 05/06/2016 ROCIO ELIZALDE APRN Ot J40 BRONCHITIS, NOT SPECIFIED ACUTE OR CH 05/06/2016 ROCIO ELIZALDE APRN Ot J44.9 CHRONIC OBSTRUCTIVE PULMONARY DISEASE, U 05/06/2016 ROCIO ELIZALDE APRN Ot R06.02 SHORTNESS OF BREATH 05/06/2016 ROCIO ELIZALDE APRN Ot Z72.0 TOBACCO USE 05/20/2016 Ot V76.12 OTH SCREEN MAMMO-MALIGN NEOPLASM OF [place] 05/20/2016 Ot 401.9 HYPERTENSION NOS 05/20/2016 Ot 414.00 CORON ATHEROSCLER NOS TYPE VESSEL, NATIV 05/20/2016 Ot 786.09 RESPIRATORY ABNORM NEC 05/20/2016 Ot 783.21 LOSS OF WEIGHT 05/20/2016 Ot 786.50 CHEST PAIN NOS 05/20/2016 DANYA GAO MD Ot V72.84 EXAM PRE-OPERATIVE NOS 05/20/2016 ARI WRIGHT Ot 783.21 LOSS OF WEIGHT 05/20/2016 ARI WRIGHT Ot V81.5 SCREEN FOR NEPHROPATHY 05/20/2016 BLAS RENEE COMPUTER OPERATIONS ANALYST Ot 733.00 OSTEOPOROSIS NOS 05/20/2016 BLAS RENEE COMPUTER OPERATIONS ANALYST Ot 733.90 BONE CARTILAGE DIS NOS 05/20/2016 SHANA OHARA MD Ot 496 CHR AIRWAY OBSTRUCT NEC 05/20/2016 SHANA OHARA MD Ot 783.21 LOSS OF WEIGHT 05/20/2016 SHANA OHARA MD Ot 786.2 COUGH 05/20/2016 Ot 272.4 HYPERLIPIDEMIA NEC/NOS 05/20/2016 Ot 401.9 HYPERTENSION NOS 05/20/2016 Ot 414.00 CORON ATHEROSCLER NOS TYPE VESSEL, NATIV 05/20/2016 Ot 785.1 PALPITATIONS 05/20/2016 Ot 786.09 RESPIRATORY ABNORM NEC 05/20/2016 ROCIO ELIZALDE APRN Ot 305.1 TOBACCO USE DISORDER 05/20/2016 ROCIO ELIZALDE APRN Ot 486 PNEUMONIA, ORGANISM NOS 05/20/2016 ROCIO ELIZALDE APRN Ot 496 CHR AIRWAY OBSTRUCT NEC 05/20/2016 ROCIO ELIZALDE COMPUTER OPERATIONS ANALYST Ot J44.9 CHRONIC OBSTRUCTIVE PULMONARY DISEASE, U 05/20/2016 ROCIO ELIZALDE APRN Ot Z72.0 TOBACCO USE 05/20/2016 CASEY SIMPSON Ot R10.32 LEFT LOWER QUADRANT PAIN 05/20/2016 ROCIO ELIZALDE COMPUTER OPERATIONS ANALYST Ot J44.9 CHRONIC OBSTRUCTIVE PULMONARY DISEASE, U 05/20/2016 ROCIO ELIZALDE APRN Ot R06.09 OTHER FORMS OF DYSPNEA 05/20/2016 ROCIO ELIZALDE APRN Ot R09.02 HYPOXEMIA 05/20/2016 ROCIO ELIZALDE COMPUTER OPERATIONS ANALYST Ot Z72.0 TOBACCO USE 05/20/2016 ROCIO ELIZALDE COMPUTER OPERATIONS ANALYST Ot J44.9 CHRONIC OBSTRUCTIVE PULMONARY DISEASE, U 05/20/2016 ROCIO ELIZALDE COMPUTER OPERATIONS ANALYST Ot R06.00 DYSPNEA, UNSPECIFIED 05/20/2016 ROCIO ELIZALDE APRN Ot J44.9 CHRONIC OBSTRUCTIVE PULMONARY DISEASE, U 05/20/2016 ROCIO ELIZALDE APRN Ot R06.02 SHORTNESS OF BREATH 05/20/2016 ROCIO ELIZALDE APRN Ot R09.02 HYPOXEMIA 05/20/2016 JORGE TORRES MD Ot E07.9 DISORDER OF THYROID, UNSPECIFIED 05/20/2016 JORGE TORRES MD Ot E78.2 MIXED HYPERLIPIDEMIA 05/20/2016 JORGE TORRES MD Ot I10 ESSENTIAL (PRIMARY) HYPERTENSION 05/20/2016 JORGE TORRES MD Ot I25.10 ATHSCL HEART DISEASE OF [place] CORONARY 05/20/2016 JORGE TORRES MD Ot I65.23 OCCLUSION AND STENOSIS OF [place] 05/20/2016 JORGE TORRES MD Ot J44.9 CHRONIC OBSTRUCTIVE PULMONARY DISEASE, U 05/20/2016 Ot E78.2 MIXED HYPERLIPIDEMIA 05/20/2016 Ot I10 ESSENTIAL ( PRIMARY) HYPERTENSION 05/20/2016 Ot I25.10 ATHSCL HEART DISEASE OF [place] CORONARY 05/20/2016 Ot I65.23 OCCLUSION AND STENOSIS OF [place]ATERAL [place] 05/20/2016 Ot J44.9 CHRONIC OBSTRUCTIVE PULMONARY DISEASE, U 05/20/2016 Ot R07.9 CHEST PAIN, UNSPECIFIED 05/20/2016 ROCIO ELIZALDE APRN Ot J44.9 CHRONIC OBSTRUCTIVE PULMONARY DISEASE, U 05/20/2016 ROCIO ELIZALDE APRN Ot R09.02 HYPOXEMIA 05/20/2016 ROCIO ELIZALDE APRN Ot J40 BRONCHITIS, NOT SPECIFIED ACUTE OR CH 05/20/2016 ROCIO ELIZALDE APRN Ot J44.9 CHRONIC OBSTRUCTIVE PULMONARY DISEASE, U 05/20/2016 ROCIO ELIZALDE APRN Ot R06.02 SHORTNESS OF BREATH 05/20/2016 ROCIO ELIZALDE APRN Ot Z72.0 TOBACCO USE 05/22/2016 ROCIO ELIZALDE APRN Ot J44.9 CHRONIC OBSTRUCTIVE PULMONARY DISEASE, U 05/22/2016 ROCIO ELIZALDE APRN Ot R09.02 HYPOXEMIA 05/24/2016 ROCIO ELIZALDE APRN Ot J40 BRONCHITIS, NOT SPECIFIED ACUTE OR CH 05/24/2016 ROCIO ELIZALDE APRN Ot J44.9 CHRONIC OBSTRUCTIVE PULMONARY DISEASE, U 05/24/2016 FIDE ROCIO Lloyd COMPUTER OPERATIONS ANALYST Ot R06.02 SHORTNESS OF BREATH 05/24/2016 FIDE, ROCIO Lloyd COMPUTER OPERATIONS ANALYST Ot Z72.0 TOBACCO USE 05/26/2016 TATIANADUKECASEY ACCESS REGISTRAR Ot Z12.31 ENCNTR SCREEN MAMMOGRAM FOR MALIGNANT NE 05/28/2016 FIDE ROCIO Desai COMPUTER OPERATIONS ANALYST Ot J44.9 CHRONIC OBSTRUCTIVE PULMONARY DISEASE, U 05/28/2016 FIDE ROCIO Lloyd COMPUTER OPERATIONS ANALYST Ot R09.02 HYPOXEMIA 06/14/2016 CASEY SIMPSON ACCESS REGISTRAR Ot Z12.31 ENCNTR SCREEN MAMMOGRAM FOR MALIGNANT NE 07/29/2016 DANYA GAO MD Ot D50.9 IRON DEFICIENCY ANEMIA, UNSPECIFIED 07/29/2016 DANYA GAO MD Ot K92.1 MELENA 07/29/2016 DANYA GAO MD Ot Z01.818 ENCOUNTER FOR OTHER PREPROCEDURAL EXAMIN 08/01/2016 DANYA GAO MD Ot D50.9 IRON DEFICIENCY ANEMIA, UNSPECIFIED 08/01/2016 DANYA GAO MD Ot K25.9 GASTRIC ULCER, UNSP ACUTE OR CHRONIC, 08/01/2016 DANYA GAO MD Ot K29.70 GASTRITIS, UNSPECIFIED, WITHOUT BLEEDING 08/01/2016 DANYA GAO MD Ot K44.9 DIAPHRAGMATIC HERNIA WITHOUT OBSTRUCTION 08/01/2016 DANYA GAO MD Ot K57.90 DVRTCLOS OF INTEST, PART UNSP, W/O PERF 08/01/2016 DANYA GAO MD Ot Z86.010 PERSONAL HISTORY OF COLONIC POLYPS 08/02/2016 DANYA GAO MD Ot D50.9 IRON DEFICIENCY ANEMIA, UNSPECIFIED 08/02/2016 DANYA GAO MD Ot K25.9 GASTRIC ULCER, UNSP ACUTE OR CHRONIC, 08/02/2016 DANYA GAO MD Ot K29.70 GASTRITIS, UNSPECIFIED, WITHOUT BLEEDING 08/02/2016 DANYA GAO MD Ot K44.9 DIAPHRAGMATIC HERNIA WITHOUT OBSTRUCTION 08/02/2016 DANYA GAO MD Ot K57.90 DVRTCLOS OF INTEST, PART UNSP, W/O PERF 08/02/2016 MURRAY PEREZ, DANYA Malloy Ot Z86.010 PERSONAL HISTORY OF COLONIC POLYPS 08/08/2016 ROCIO ELIZALDE COMPUTER OPERATIONS ANALYST Ot J44.9 CHRONIC OBSTRUCTIVE PULMONARY DISEASE, U 08/08/2016 ROCIO ELIZALDE COMPUTER OPERATIONS ANALYST Ot R06.00 DYSPNEA, UNSPECIFIED 08/08/2016 ROCIO ELIZALDE COMPUTER OPERATIONS ANALYST Ot R09.02 HYPOXEMIA 08/08/2016 ROCIO ELIZALDE COMPUTER OPERATIONS ANALYST Ot Z72.0 TOBACCO USE 08/16/2016 MURRAY PEREZ, DANYA Malloy Ot D50.9 IRON DEFICIENCY ANEMIA, UNSPECIFIED 08/16/2016 MURRAY PEREZ, DANYA Malloy Ot K25.9 GASTRIC ULCER, UNSP ACUTE OR CHRONIC, 08/16/2016 MURRAY PEREZ, DANYA Malloy Ot K29.70 GASTRITIS, UNSPECIFIED, WITHOUT BLEEDING 08/16/2016 MURRAY PEREZ, DANYA Malloy Ot K44.9 DIAPHRAGMATIC HERNIA WITHOUT OBSTRUCTION 08/16/2016 MURRAY PEREZ, DANYA Malloy Ot K57.90 DVRTCLOS OF INTEST, PART UNSP, W/O PERF 08/16/2016 MURRAY PEREZ, DANYA Malloy Ot Z86.010 PERSONAL HISTORY OF COLONIC POLYPS 09/15/2016 CASEY SIMPSON Ot D50.9 IRON DEFICIENCY ANEMIA, UNSPECIFIED 09/15/2016 CASEY SIMPSON Ot J44.9 CHRONIC OBSTRUCTIVE PULMONARY DISEASE, U 09/15/2016 CASEY SIMPSON Ot K57.30 DVRTCLOS OF LG INT W/O PERFORATION OR AB 09/15/2016 CASEY SIMPSONP Ot K86.89 OTHER SPECIFIED DISEASES OF PANCREAS 09/15/2016 CASEY SIMPSONP Ot R10.12 LEFT UPPER QUADRANT PAIN 09/27/2016 ROCIO ELIZALDE COMPUTER OPERATIONS ANALYST Ot J44.9 CHRONIC OBSTRUCTIVE PULMONARY DISEASE, U 09/27/2016 ROCIO ELIZALDE COMPUTER OPERATIONS ANALYST Ot R06.00 DYSPNEA, UNSPECIFIED 09/27/2016 ROCIO ELIZALDE COMPUTER OPERATIONS ANALYST Ot R09.02 HYPOXEMIA 09/27/2016 ROCIO ELIZALDE COMPUTER OPERATIONS ANALYST Ot Z72.0 TOBACCO USE 09/28/2016 ROCIO ELIZALDE COMPUTER OPERATIONS ANALYST Ot J44.9 CHRONIC OBSTRUCTIVE PULMONARY DISEASE, U 09/28/2016 ROCIO ELIZALDE COMPUTER OPERATIONS ANALYST Ot R06.00 DYSPNEA, UNSPECIFIED 09/28/2016 ROCIO ELIZALDE COMPUTER OPERATIONS ANALYST Ot R09.02 HYPOXEMIA 09/28/2016 ROCIO ELIZALDE COMPUTER OPERATIONS ANALYST Ot Z72.0 TOBACCO USE 09/30/2016 ROCIO ELIZALDE COMPUTER OPERATIONS ANALYST Ot J44.1 CHRONIC OBSTRUCTIVE PULMONARY DISEASE W 10/13/2016 CASEY SIMPSON ACCESS REGISTRAR Ot D50.9 IRON DEFICIENCY ANEMIA, UNSPECIFIED 10/13/2016 CASEY SIMPSON ACCESS REGISTRAR Ot J44.9 CHRONIC OBSTRUCTIVE PULMONARY DISEASE, U 10/13/2016 CASEY SIMPSON ACCESS REGISTRAR Ot K57.30 DVRTCLOS OF LG INT W/O PERFORATION OR AB 10/13/2016 CASEY SIMPSON ACCESS REGISTRAR Ot K86.89 OTHER SPECIFIED DISEASES OF PANCREAS 10/13/2016 CASEY SIMPSON ACCESS REGISTRAR Ot R10.12 LEFT UPPER QUADRANT PAIN 10/20/2016 ROCIO ELIZALDE COMPUTER OPERATIONS ANALYST Ot J44.1 CHRONIC OBSTRUCTIVE PULMONARY DISEASE W 11/28/2016 ROCIO ELIZALDE COMPUTER OPERATIONS ANALYST Ot J30.9 ALLERGIC RHINITIS, UNSPECIFIED 11/28/2016 ROCIO ELIZALDE COMPUTER OPERATIONS ANALYST Ot R06.00 DYSPNEA, UNSPECIFIED 11/28/2016 ROCIO ELIZALDE COMPUTER OPERATIONS ANALYST Ot R06.02 SHORTNESS OF BREATH 11/28/2016 ROCIO ELIZALDE COMPUTER OPERATIONS ANALYST Ot R09.02 HYPOXEMIA 11/28/2016 ROCIO ELIZALDE COMPUTER OPERATIONS ANALYST Ot Z72.0 TOBACCO USE 12/30/2016 ROCIO ELIZALDE COMPUTER OPERATIONS ANALYST Ot J30.9 ALLERGIC RHINITIS, UNSPECIFIED 12/30/2016 ROCIO ELIZALDE COMPUTER OPERATIONS ANALYST Ot R06.00 DYSPNEA, UNSPECIFIED 12/30/2016 ROCIO ELIZLADE COMPUTER OPERATIONS ANALYST Ot R06.02 SHORTNESS OF BREATH 12/30/2016 ROCIO ELIZALDE COMPUTER OPERATIONS ANALYST Ot R09.02 HYPOXEMIA 12/30/2016 ROCIO ELIZALDE COMPUTER OPERATIONS ANALYST Ot Z72.0 TOBACCO USE 04/12/2017 ROCIO ELIZALDE COMPUTER OPERATIONS ANALYST Ot J43.9 EMPHYSEMA, UNSPECIFIED 04/12/2017 ROCIO ELIZALDE COMPUTER OPERATIONS ANALYST Ot J96.20 ACUTE AND CHR RESP FAILURE, UNSP W HYPOX 04/12/2017 ROCIO ELIZALDE APRN Ot Z72.0 TOBACCO USE Procedures Code Description [place] [address] ROUTINE VENIPUNCTURE 04/03/2012 93834 ESR/SED RATE 04/03/2012 43085 CBC 04/03/2012 66851 CMP 04/03/2012 [id number] GFR CALC (RESULT ONLY) 04/03/2012 03860 XRAY CHEST 2 VIEW 04/12/[address] CHEST W/O DYE 04/12/[address] ABDOMEN & PELVIS W/ & W/ O CONTRAST 04/12/2012 24907 OXIMETRY 04/20/2012 65841 ROUTINE VENIPUNCTURE 08/20/2012 14075 ESR/SED RATE 08/20/2012 37301 CBC 08/20/2012 58233 CMP 08/20/2012 [id number] GFR CALC (RESULT ONLY) 08/20/2012 01225 CRP 08/21/2012 61072 PT/INR 08/21/2012 75422 TSH 09/14/2012 49524 MAMMOGRAM, SCREENING 03/12/2013 66733 ROUTINE VENIPUNCTURE 03/20/2013 22479 CELIAC DISEASE ANALYZER 03/22/2013 95953 MAMMOGRAM, SCREENING 05/21/2013 53439 BONE MINERAL DENSITY, HEEL US (IN HOUSE) 05/22/2013 12951 ROUTINE VENIPUNCTURE 06/18/2013 35154 SED/ESR RATE (IN HOUSE) 06/18/2013 47816 PULMONARY FUNCTION TEST 06/18/2013 13070 CMP 06/18/2013 14868 LIPID PANEL 06/18/2013 [id number] GFR CALC (RESULT ONLY) 06/18/2013 56965 CBC 06/18/2013 63125 XRAY FOOT RIGHT COMP MIN 3 VIEWS 02/24/2014 76189 ROUTINE VENIPUNCTURE 03/28/2014 [id number] GFR CALC (RESULT ONLY) 03/28/2014 67665 CMP 03/28/2014 04662 LIPID PANEL 03/28/2014 17170 MAMMOGRAM, SCREENING 05/29/2014 Results Test Result Range Arterial blood gas measurement - 11/24/15 13:15 Blood pCO2 35 mm[Hg] 35-45 Blood pO2 63 mm[Hg] 79-93 Arterial blood bicarbonate measurement (moles/volume) 23 mmol/L 23-27 Arterial blood base excess by calculation -0.7 mmol/L - 2.5-2.5 Arterial blood oxygen saturation measurement 95 % 94-100 * Inhaled oxygen flow rate 2 NRG Arterial blood pH measurement with patient temperature correction 7.44 7.37-7.43 Arterial blood carbon dioxide, total measurement (moles/volume) 24.2 mmol/L 21.0-31.0 Body site LT RADIAL NRG Assessment of wrist artery patency prior to arterial puncture YES- POS NRG Setting of ventilation mode NO NRG Measurement of body temperature 97.9 NRG Encounters ACCT No. Visit Date/Time Discharge Status Pt. Type Provider Facility Loc./Unit Complaint [id number] 06/25/2014 13:48:00 06/25/2014 23:59:59 CLS Outpatient CHER PEREZ, ОЛЕГ [place] [id number] 05/29/2014 10:07:00 05/29/2014 23:59:59 CLS Outpatient BLAS RENEE APRN [id number] 03/28/2014 11:04:00 03/28/2014 23:59:59 CLS Outpatient CASEY SIMPSON APRN [id number] 02/24/2014 08:58:00 02/24/2014 23:59:59 CLS Outpatient CASEY SIMPSON APRN [id number] 01/01/2014 14:08:00 01/01/2014 23:59:59 CLS Outpatient CASEY SIMPSON APRN [id number] 07/25/2013 16:04:00 07/25/2013 23:59:59 CLS Outpatient CHELA PEREZ, SHANA [id number] 06/26/2013 14:02:00 06/26/2013 23:59:59 CLS Outpatient BLAS RENEE APRN [id number] 06/18/2013 09:54:00 06/18/2013 23:59:59 CLS Outpatient CASEY SIMPSON APRN [id number] 05/22/2013 09:34:00 05/22/2013 23:59:59 CLS Outpatient BLAS RENEE APRN [id number] 03/26/2013 08:56:00 03/26/2013 23:59:59 CLS Outpatient CASEY SIMPSON APRN [id number] 03/12/2013 08:49:00 03/12/2013 23:59:59 CLS Outpatient CASEY SIMPSON APRN [id number] 11/01/2012 15:55:00 11/01/2012 23:59:59 CLS Outpatient DANYA GAO MD [id number] 04/19/2012 16:25:00 04/19/2012 23:59:59 CLS Outpatient CASEY SIMPSON APRN [id number] 04/03/2012 09:41:00 04/03/2012 23:59:59 CLS Outpatient CASEY SIMPSON APRN [id number] 10/31/2012 08:39:00 Document Registration [id number] 09/14/2012 10:05:00 Document Registration [id number] 08/20/2012 08:31:00 Document Registration [id number] 07/30/2012 13:10:00 Document Registration [id number] 03/20/2017 14:45:00 03/20/2017 23:59:59 CLS Outpatient LAM ELIZALDEINE Lloyd COMPUT[employer]PERATIONS ANALYST [facility] RAD J96.20 ACUTE ON CHRONIC RESPIRATORY FAILURE [id number] 11/22/2016 12:31:00 11/22/2016 23:59:59 CLS Outpatient LAM ELIZALDEINE Lloyd COMPUTER OPERATIONS ANALYST [facility] RAD J40 [id number] 09/28/2016 00:17:00 09/28/2016 23:59:59 CLS Preadmit LAM ELIZALDEINE Lloyd COMPUTER OPERATIONS ANALYST [facility] LAB COPD,SOB ON EXERTION [id number] 06/29/2016 11:29:00 09/27/2016 00:01:00 DIS Outpatient LAM ELIZALDEINE Lloyd COMPUTER OPERATIONS ANALYST [facility] LAB COPD,SOB ON EXERTION [id number] 09/23/2016 12:41:00 09/23/2016 23:59:59 CLS Outpatient LAM ELIZALDEINE E COMPUTER OPERATIONS ANALYST [facility] RAD J44.1 [id number] 09/02/2016 07:52:00 09/02/2016 23:59:59 CLS Outpatient CASEY SIMPSON [facility] RAD R10.12 [id number] 08/01/2016 07:08:00 08/01/2016 09:25:00 DIS Outpatient DANYA GAO MD [facility] ENDO IRON DEFICIENCY ANEMIA/HEMATOCHEZIA [id number] 07/28/2016 05:49:00 07/28/2016 15:54:00 DIS Outpatient MURRAY PEREZ, DANYA Malloy [facility] PREOP ANEMIA, HEMATOCHEZIA [id number] 05/24/2016 11:23:00 05/24/2016 23:59:59 CLS Outpatient CASEY SIMPSON [facility] RAD SCREENING [id number] 05/23/2016 10:15:00 05/23/2016 23:59:59 CLS Preadmit ROCIO ELIZALDE COMPUTER OPERATIONS ANALYST [facility] PULM COPD [id number] 02/22/2016 10:36:00 05/22/2016 00:01:00 DIS Outpatient ROCIO ELIZALDE E COMPUTER OPERATIONS ANALYST [facility] PULM COPD [id number] 05/05/2016 14:07:00 05/05/2016 23:59:59 CLS Outpatient LAM ELIZALDEINE E COMPUTER OPERATIONS ANALYST [facility] RAD FEVER,COPD, BRONCHITIS [id number] 02/01/2016 08:55:00 02/01/2016 23:59:59 CLS Outpatient MELISSA PEREZ, JORGE Peres [facility] CARD CAD,COPD,CP [id number] 01/08/2016 12:31:00 01/08/2016 23:59:59 CLS Outpatient LAM ELIZALDEINE E COMPUTER OPERATIONS ANALYST [facility] RT SOB ON EXERTION, HYPOXEMIA,COPD,DYSPNEA [id number] 11/24/2015 13:01:00 11/24/2015 23:59:59 CLS Outpatient ROCIO ELIZALDE COMPUTER OPERATIONS ANALYST [facility] RT COPD [id number] 10/29/2015 14:28:00 10/29/2015 23:59:59 CLS Outpatient LAM ELIZALDEINE E COMPUTER OPERATIONS ANALYST [facility] RAD COPD,DYSPNEA, TOBACCO USER,HYPOXEMIA [id number] 08/24/2015 09:47:00 08/24/2015 23:59:59 CLS Outpatient CASEY SIMPSON [facility] RAD LLQ PAIN [id number] 06/02/2015 12:29:00 06/02/2015 23:59:59 CLS Outpatient ROCIO ELIZALDE APRN [facility] RAD COPD, DYSPNEA, SOB ON EXERTION [id number] 04/26/2015 02:00:00 04/26/2015 03:45:00 DIS Emergency CHERYLE CONNOLLY DO [facility] ER SOB/SOA [id number] 03/16/2015 06:10:00 03/16/2015 08:42:00 DIS Emergency LEIGH TORRES MD [facility] ER SOA [id number] 12/31/2014 18:19:00 12/31/2014 23:59:59 CLS Outpatient ROCIO ELIZALDE APRN [facility] RAD PNEUMONIA,COPD, DYSPNEA,TOBACCO USE [id number] 03/24/2014 10:18:00 03/24/2014 23:59:59 CLS Outpatient JORGE TORRES MD [facility] CARD CAD PALPITATIONS HLE HTN [id number] 10/15/2013 09:04:00 10/15/2013 23:59:59 CLS Outpatient LEANN GILL DO [facility] RAD [id number] 09/04/2013 08:19:00 09/04/2013 23:59:59 CLS Outpatient LEANN GILL DO [facility] RT [id number] 07/08/2013 11:21:00 07/09/2013 13:35:00 DIS Inpatient SHANA YORK MD [facility] CSD CHEST PAIN W/EXERTION COPD [id number] 06/25/2013 10:42:00 06/25/2013 23:59:59 CLS Outpatient SHANA OHARA MD [facility] RAD COPD [id number] 06/20/2013 09:24:00 06/20/2013 23:59:59 CLS Outpatient BLAS RENEE APRN [facility] RAD OSTEOPENIA [id number] 05/21/2013 09:33:00 05/21/2013 23:59:59 CLS Outpatient [id number] 10/25/2012 08:54:00 10/25/2012 23:59:59 CLS Outpatient ARI WRIGHT [facility] RAD WEIGHT LOSS [id number] 10/08/2012 08:45:00 10/08/2012 10:50:00 DIS Outpatient DANYA GAO MD [facility] HISTORY OF POLYPS/ WEIGHT LOSS [id number] 10/03/2012 10:55:00 10/03/2012 23:59:59 CLS Outpatient DANYA GAO MD [facility] PREOP HISTORY OF POLYPS/ WEIGHT LOSS [id number] 01/28/2016 10:27:00 Document Registration [id number] 06/23/2014 10:30:00 Document Registration [id number] 06/13/2014 11:27:00 Document Registration [id number] 04/02/2014 12:13:00 Document Registration [id number] 04/06/2012 09:08:00 Document Registration [id number] 03/30/2012 09:28:00 Document Registration [id number] 03/28/2012 07:15:00 Document Registration [id number] 03/12/2012 15:16:00 Document Registration [id number] 03/06/2012 13:07:00 Document Registration [id number] 11/04/2011 13:36:00 Document Registration [id number] 09/02/2011 10:14:00 Document Registration [id number] 08/30/2011 09:45:00 Document Registration [id number] 08/24/2011 06:11:00 Document Registration [id number] 08/19/2011 09:25:00 Document Registration [id number] 04/26/2011 13:02:00 Document Registration [id number] 02/05/2010 14:02:00 Document Registration [id number] 11/17/2009 11:07:00 Document Registration
--- NOTE | 2017-06-25 10:37 | History & Physicial (CHS) ---
HPI History of Present Illness: Per ED notes: PT ARRIVES VIA POV FROM HOME PT WITH COPD, AND DAUGHTER STATES "IT'S BEEN PRETTY BAD LATELY--FOR THE LAST SEVERAL MONTHS" PT HAS HAD PRODUCTIVE COUGH WITH COLORED SPUTUM FOR OVER A WEEK PT HAS HAD INCREASED SHORTNESS OF BREATH THIS WEEK AND ESPECIALLY SINCE LAST NIGHT, AND SHE WOKE HER UP AT 0500 THIS AM DUE TO PROBLEMS BREATHING PT HAD TEMP OF 102.6 ON ARRIVAL, SHE AND FAMILY WERE UNAWARE THAT SHE HAD FEVER NO SWELLING IN LEGS/ FEET OR PAIN IN CALVES PT STILL SMOKES 1-2 PPD PT IS ON DAILY PREDNISONE FOR COPD PT IS ALSO ON HOME O2 AT 2L/NC PT HAS NEVER BEEN ON VENTILATOR PT USED NEBULIZER AROUND 0500 TODAY PT WAS ON ANTIBIOTICS LAST WEEK FOR UTI, NAME UNKNOWN, FINISHED A FEW DAYS AGO PCP: DR. YORK, CLINICAL SUPPORT NURSE RENY SIMPSON AT [facility] WET AND DRY SUGAR BIN OPERATOR: DR. KNE Source: patient, family, RN/MD, old records Exam Limitations: no limitations Date seen by provider: Jun 25, 2017 Time Seen by Provider: 10:37 Attending Physician Roma Boone DO PCP Reny Simpson Consult Date of Admission Jun 24, 2017 at 12:20 Home Medications Home Medications Reviewed patient Home Medication Reconciliation Form Allergies Coded Allergies: tramadol (Unverified Allergy, Mild, 07/08/13) Penicillins (Verified Allergy, Unknown, 07/08/13) Sulfa (Sulfonamide Antibiotics) (Verified Allergy, Unknown, 07/08/13) sumatriptan (Verified Allergy, Unknown, 07/08/13) GHM-Wzrgjw-Itdxov Hx Patient Social History Marrital Status: Living Status: at home with spouse Employed/Student: retired Alcohol Use: Denies Use Recreational Drug Use: No Smoking Status: Current Everyday Smoker Type Used: Cigarettes Recent Foreign Travel: No Contact w/other who traveled: No Recent Hopitalizations: No Recent Infectious Disease Expo: No Immunizations Up To Date Tetanus Booster (TDap): Unknown Date of Pneumonia Vaccine: Oct 08, 2002 Date of Influenza Vaccine: Mar 17, 2017 Past Medical History COPD Anxiety Tobacco Abuse Dependence on Supplemental Oxygen Pulmonary Emphysema Memory Loss IBS with Diarrhea Depression Anemia - Iron Deficiecy CAD HTN Essential Tremor Family Medical History Significant Family History: No Pertinent Family Hx Review of Systems ([facility]) Constitutional: see HPI EENTM: nose congestion, No ear pain, No eye pain, No hoarseness, No throat pain Respiratory: see HPI, cough, dyspnea on exertion, orthopnea, short of breath, wheezing Cardiovascular: no symptoms reported, No chest pain, No edema Gastrointestinal: no symptoms reported Genitourinary: no symptoms reported : No Musculoskeletal: no symptoms reported Skin: no symptoms reported Psychiatric/Neurological: Anxiety Reviewed Test Results Reviewed Test Results Lab Laboratory Tests Test 06/24/17 11:22 06/24/17 11:50 06/24/17 12:50 06/25/17 03:49 Range/Units White Blood Count 17.5 H 10.4 4.3-11.0 10^3/uL Red Blood Count 4.46 4.56 4.35-5.85 10^6/uL Hemoglobin 12.1 12.3 11.5-16.0 G/DL Hematocrit 37 38 35-52 % Mean Corpuscular Volume 83 84 80-99 FL Mean Corpuscular Hemoglobin 27 27 25-34 PG Mean Corpuscular Hemoglobin Concent 33 32 32-36 G/DL Red Cell Distribution Width 19.2 H 19.1 H 10.0-14.5 % Platelet Count 442 H 425 H 130-400 10^3/uL Mean Platelet Volume 8.9 9.3 7.4-10.4 FL Neutrophils (%) (Auto) 83 H 96 H 42-75 % Lymphocytes (%) (Auto) 6 L 3 L 12-44 % Monocytes (%) (Auto) 10 1 0-12 % Eosinophils (%) (Auto) 1 0 0-10 % Basophils (%) (Auto) 0 0 0-10 % Neutrophils # (Auto) 14.5 H 10.0 H 1.8-7.8 X 10^3 Lymphocytes # (Auto) 1.0 0.3 L 1.0-4.0 X 10^3 Monocytes # (Auto) 1.8 H 0.1 0.0-1.0 X 10^3 Eosinophils # (Auto) 0.1 0.0 0.0-0.3 10^3/uL Basophils # (Auto) 0.1 0.0 0.0-0.1 10^3/uL Neutrophils % (Manual) 93 % Lymphocytes % (Manual) 2 % Monocytes % (Manual) 2 % Eosinophils % (Manual) 3 % Band Neutrophils % Blood Morphology Comment NORMAL Prothrombin Time 13.1 12.2-14.7 SEC INR Comment 1.0 0.8-1.4 Activated Partial Thromboplast Time 27 24-35 SEC Sodium Level 130 L 136 135-145 MMOL/L Potassium Level 3.9 4.4 3.6-5.0 MMOL/L Chloride Level 98 103 98-107 MMOL/L Carbon Dioxide Level 22 22 21-32 MMOL/L Anion Gap 10 11 5-14 MMOL/L Blood Urea Nitrogen 11 13 7-18 MG/DL Creatinine 0.70 0.69 0.60-1.30 MG/DL Estimat Glomerular Filtration Rate > 60 > 60 BUN/Creatinine Ratio 16 19 Glucose Level 111 H 147 H 70-105 MG/DL Lactic Acid Level 0.99 0.50-2.00 MMOL/L Calcium Level 8.7 9.3 8.5-10.1 MG/DL Magnesium Level 1.8 1.8-2.4 MG/DL Total Bilirubin 0.2 0.3 0.1-1.0 MG/DL Aspartate Amino Transf (AST/SGOT) 18 16 5-34 U/L Alanine Aminotransferase (ALT/SGPT) 13 16 0-55 U/L Alkaline Phosphatase 64 58 40-136 U/L Total Creatine Kinase 49 29-168 U/L Creatine Kinase MB 1.7 <6.6 NG/ML Troponin I < 0.30 <0.30 NG/ML B-Type Natriuretic Peptide 17.8 <100.0 PG/ML Total Protein 6.5 6.7 6.4-8.2 GM/DL Albumin 3.9 3.9 3.2-4.5 GM/DL TSH [place] Testing 0.64 0.35-4.94 UIU/ML Blood Gas Puncture Site LEFT RADIAL LEFT RADIAL Blood Gas Patient Temperature 102.6 100.9 Arterial Blood pH 7.41 7.39 7.37-7.43 Arterial Blood Partial Pressure CO2 41 42 35-45 MMHG Arterial Blood Partial Pressure O2 54 L 62 L 79-93 MMHG Arterial Blood HCO3 25 25 23-27 MMOL/L Arterial Blood Total CO2 25.8 26.0 21.0-31.0 MMOL/L Arterial Blood Oxygen Saturation 85 L 90 L 94-100 % Arterial Blood Base Excess 1.0 0.6 -2.5-2.5 MMOL/L John Test POSITIVE POSITIVE Blood Gas Ventilator Setting NO NO Blood Gas Inspired Oxygen BIPAP 30% 50% BIPAP Physical Exam-(CHC) Physical Exam Vital Signs VS - Last 72 Hours, by Label 06/24/17 06/24/17 06/24/17 06/24/17 11:15 11:47 12:04 12:36 Temp 102.6 102.2 Pulse 144 140 Resp 30 24 B/P (MAP) 113/72 (86) Pulse Ox 94 96 97 O2 Delivery Nasal Cannula Nasal Cannula O2 Flow Rate 3.00 3.00 30.00 FiO2 100 06/24/17 06/24/17 06/24/17 06/24/17 12:36 13:17 13:45 15:17 Temp 102.2 102.6 Pulse 128 119 111 Resp 22 B/P (MAP) 111/66 125/67 (86) Pulse Ox 98 100 97 O2 Delivery NIV Bilevel NIV Bilevel O2 Flow Rate 50.00 06/24/17 06/24/17 06/24/17 06/24/17 16:30 16:31 17:24 17:29 Pulse 106 100 Resp 24 Pulse Ox 97 99 O2 Delivery NIV Bilevel NIV Bilevel NIV Bilevel O2 Flow Rate 35.00 35.00 06/24/17 06/24/17 06/24/17 06/24/17 18:10 18:33 19:00 19:30 Temp 96.9 Pulse 92 93 Resp 18 Pulse Ox 98 O2 Delivery NIV Bilevel O2 Flow Rate 35.00 06/24/17 06/24/17 06/24/17 06/24/17 20:00 20:00 21:00 21:58 Temp 97.2 Pulse 93 91 Resp 20 19 B/P (MAP) 125/67 (86) Pulse Ox 99 96 O2 Delivery NIV Bilevel NIV Bilevel NIV Bilevel O2 Flow Rate 30.00 06/25/17 06/25/17 06/25/17 06/25/17 00:00 00:00 01:00 01:27 Temp 98.1 Pulse 93 92 88 Resp 18 17 B/P (MAP) 109/55 (73) Pulse Ox 96 96 O2 Delivery NIV Bilevel NIV Bilevel O2 Flow Rate 30.00 06/25/17 06/25/17 06/25/17 06/25/17 04:00 04:00 04:28 06:53 Pulse 102 110 92 Resp 28 19 B/P (MAP) 103/54 (70) Pulse Ox 94 97 96 O2 Delivery NIV Bilevel NIV Bilevel O2 Flow Rate 30.00 30.00 30.00 06/25/17 06/25/17 06/25/17 06/25/17 07:00 08:00 08:00 08:47 Temp 98.3 Pulse 95 98 107 Resp 18 27 B/P (MAP) 119/61 (80) Pulse Ox 96 97 O2 Delivery NIV Bilevel NIV Bilevel O2 Flow Rate 30.00 06/25/17 06/25/17 06/25/17 06/25/17 09:55 10:39 11:34 12:00 Temp 97.9 Pulse 92 87 Resp 32 20 B/P (MAP) 103/54 (70) Pulse Ox 97 95 O2 Delivery NIV Bilevel NIV Bilevel NIV Bilevel O2 Flow Rate 30.00 06/25/17 06/25/17 06/25/17 12:48 13:00 14:36 Pulse 117 121 Resp 30 Pulse Ox 95 97 O2 Delivery Vapotherm O2 Flow Rate 30.00 20.00 FiO2 30 Capillary Refill : Less Than 3 Seconds General Appearance: WD/WN, mild distress Eyes: Bilateral Eye Normal Inspection, Bilateral Eye PERRL, Bilateral Eye EOMI HEENT: PERRL/EOMI, normal ENT inspection, No scleral icterus (R), No scleral icterus (L), No photophobia Neck: non-tender, full range of motion, supple, normal inspection Respiratory: chest non-tender, respiratory distress, decreased breath sounds, accessory muscle use, wheezing Cardiovascular: regular rate, rhythm, no edema, no gallop, tachycardia Gastrointestinal: normal bowel sounds, non tender, soft, no pulsatile mass Rectal: deferred Extremities: normal range of motion, non-tender, normal inspection (bruising), no pedal edema, no calf tenderness Neurologic/Psychiatric: bright cutter II-XII nml as tested, no motor/sensory deficits, alert, normal mood/affect, oriented x 3 Skin: normal color, warm/dry, ecchymosis Assessment/Plan Assessment/Plan Admission Dx Acute on Chronic Respiratory Failure COPD Exacerbation Tobacco Abuse Admission Status: Inpatient Order (span 2 midnights) Reason for Inpatient Admission: need for respiratory support Assessment & Plan Acute on Chronic Respiratory Failure, COPD Exacerbation 06/25 -pt currently on bipap with FiO2 30% and able to converse fairly well but does have clearly increased work of breathing with conversation -IV solumedrol -pt requesting to eat or drink; will trial on high flow NC, but discussed with patient that she will likely need intermittent bipap at this time and would recommend using bipap especially when asleep; family reports that patient typically falls asleep during the day multiple times while she is sitting down and does not feel rested; suspect she would benefit from home bipap use at night -patient follows with Dr. Ken in pulm clinic, will consult in AM -baseline O2 2.5-3L at all times -Day 2 Cefepime and Azithromycin Tobacco Abuse 06/25 -cessation encouraged; pt reports she has been cutting back Anxiety, Depression 06/25 -continue home medication HTN, CAD 06/25 -continue home medication Clinical Quality Measures DVT/VTE Risk/Contraindication: Risk Factor Score Per Nursin RFS Level Per Nursing on Admit: 4+=Very High Copy Copies To 1: [facility]/ROMA SUBRAMANIAN DO Jun 25, 2017 10:37
[2017-06-25] MEDS: methylPREDNISolone 40 MG/ML (Solu-MEDROL) VIAL IV SCH ×2 (12:19→17:39)
[2017-06-25] MEDS: AZITHROMYCIN 500 MG/NS 250 ML IVPB IV SCH ×2 (14:43)
[2017-06-25] MEDS: ENOXAPARIN 40 MG/0.4 ML (LOVENOX) SYR SC SCH (17:39)
[2017-06-25] MEDS: RT-ADVAIR HFA 115/21 MCG PER PUFF IH SCH (19:27)
[2017-06-25] MEDS: CATHETER FLUSH 10 ML SYR IV PRN (20:22)
[2017-06-25] MEDS: meTOprolol TARTRATE 25 MG (LOPRESSOR) TABLET PO SCH (21:28)
[2017-06-25] MEDS: ASPIRIN E.C. 81 MG (ECOTRIN) TAB PO SCH (21:28)
[2017-06-25] MEDS: MONTELUKAST 10 MG (SINGULAIR) TAB PO SCH (21:28)
[2017-06-26 00:03] VITALS: BP 114/72
[2017-06-26] MEDS: CATHETER FLUSH 10 ML SYR IV SCH ×4 (00:10→21:22)
[2017-06-26] MEDS: methylPREDNISolone 40 MG/ML (Solu-MEDROL) VIAL IV SCH ×2 (00:10→06:41)
[2017-06-26] MEDS: CATHETER FLUSH 10 ML SYR IV PRN ×2 (00:20→09:01)
[2017-06-26] MEDS: LORazepam INJ 2 MG/ML (ATIVAN) VIAL IV PRN ×4 (00:20→21:22)
[2017-06-26] MEDS: RT-ALBUTEROL/IPRATROPIUM 3 ML (DUONEB) VIAL INH SCH ×6 (01:47→22:02)
[2017-06-26 04:00] VITALS: BP 108/73
[2017-06-26 04:10] LABS: BASOPHILS % (AUTO) 0 % (0-10); EOSINOPHILS % (AUTO) 0 % (0-10); HEMATOCRIT 35 % (35-52); HEMOGLOBIN 11.2 G/DL (11.5-16.0); LYMPHOCYTES # (AUTO) 0.4 X 10^3 (1.0-4.0); LYMPHOCYTES % (AUTO) 4 % (12-44); MEAN CORPUSCULAR HEMOGLOBIN 27 PG (25-34); MEAN CORPUSCULAR HGB CONC 32 G/DL (32-36); MEAN CORPUSCULAR VOLUME 84 FL (80-99); MEAN PLATELET VOLUME 9.2 FL (7.4-10.4); MONOCYTES # (AUTO) 0.8 X 10^3 (0.0-1.0); MONOCYTES % (AUTO) 8 % (0-12); NEUTROPHILS # (AUTO) 8.5 X 10^3 (1.8-7.8); NEUTROPHILS % (AUTO) 87 % (42-75); PLATELET COUNT 405 10^3/uL (130-400); RED BLOOD COUNT 4.15 10^6/uL (4.35-5.85); RED CELL DISTRIBUTION WIDTH 19.2 % (10.0-14.5); WHITE BLOOD COUNT 9.8 10^3/uL (4.3-11.0)
[2017-06-26 04:24] LABS: BUN/CREATININE RATIO 27; CALCIUM 8.6 MG/DL (8.5-10.1); CARBON DIOXIDE 22 MMOL/L (21-32); CHLORIDE 106 MMOL/L (98-107); CREATININE SERUM 0.64 MG/DL (0.60-1.30); GFR ESTIMATED > 60; GLUCOSE 156 MG/DL (70-105); MAGNESIUM 2.1 MG/DL (1.8-2.4); POTASSIUM 4.4 MMOL/L (3.6-5.0); SODIUM 136 MMOL/L (135-145)
[2017-06-26] MEDS: RT-ADVAIR HFA 115/21 MCG PER PUFF IH SCH ×2 (07:18→18:06)
[2017-06-26] MEDS: VENlafaxine XR 75 MG (EFFEXOR XR) CAP PO SCH (07:43)
[2017-06-26] MEDS: FOLIC ACID 1 MG TAB PO SCH (07:44)
[2017-06-26] MEDS: PANTOPRAZOLE 40 MG (PROTONIX) TAB PO SCH (07:44)
[2017-06-26] MEDS: NICOTINE PATCH REMOVAL TP SCH (07:45)
[2017-06-26] MEDS: NICOTINE 21 MG (NICODERM) PATCH TD SCH (07:47)
[2017-06-26 08:00] VITALS: BP 120/69
--- NOTE | 2017-06-26 08:04 | Pulmonary Consultation ---
History of Present Illness History of Present Illness Date of Consultation 06/26/17 07:59 Time Seen by Provider: 07:59 Date of Admission History of Present Illness 66yo with hx of severe oxygen/steroid dependent COPD (pt uses 2 liters/min NC) and continues to smoke presented to ED secondary to worsening SOB and productive cough of yellow sputum and has been much worse over the last week. Pt had fever of 102.6 upon ED arrival. pt used her home nebulizer prior to going to ED without improvement. Allergies and Home Medications Allergies Coded Allergies: tramadol (Unverified Allergy, Mild, 07/08/13) Penicillins (Verified Allergy, Unknown, 07/08/13) Sulfa (Sulfonamide Antibiotics) (Verified Allergy, Unknown, 07/08/13) sumatriptan (Verified Allergy, Unknown, 07/08/13) Home Medications Albuterol 17 Gm Inh, 2 PUFF IH QID PRN for SHORTNESS OF BREATH, (Reported) NEEDED FOR SHORTNESS OF BREATH Albuterol Sulfate 2.5 Mg/0.5 Ml Vial.neb, 2.5 MG IH Q4H PRN for SHORTNESS OF BREATH Prescribed by: LEIGH TORRES on 03/16/15 0819 Albuterol/Ipratropium 3 Ml Nebu, 3 ML INH RTQ4HR Prescribed by: TARIQ CERRATO on 07/09/13 1239 Ascorbate Calcium 500 Mg Tablet, 500 MG PO DAILY, (Reported) Aspirin 81 Mg Tablet.dr, 81 MG PO HS, (Reported) Budesonide/Formoterol Fumarate 1 Puff Puff, 2 PUFF IH RTBID Prescribed by: TARIQ CERRATO on 07/09/13 1239 Cetirizine HCl 10 Mg Tablet, 10 MG PO DAILY, (Reported) Clonidine HCl 0.2 Mg Tablet, 0.2 MG PO DAILY, (Reported) Clopidogrel Bisulfate 75 Mg Tablet, 75 MG PO DAILY, (Reported) Desvenlafaxine Succinate 100 Mg Tab.er.24h, 100 MG PO DAILY, (Reported) Donepezil HCl 10 Mg Tablet, 10 MG PO DAILY, (Reported) Ferrous Sulfate 325 Mg Tablet, 650 MG PO DAILY, (Reported) take 2 (325mg) tabs Folic Acid 0.4 Mg Tablet, 0.4 MG PO DAILY, (Reported) Ipratropium/Albuterol Sulfate 3 Ml Ampul.neb, 3 ML IH Q8H PRN for SHORTNESS OF BREATH Prescribed by: LEIGH TORRES on 03/16/15 0819 Isosorbide Mononitrate 30 Mg Tablet, 30 MG PO DAILY, (Reported) Lorazepam 0.5 Mg Tablet, 0.5 MG PO BID, (Reported) Magnesium Oxide 250 Mg Tablet, 250 MG PO BID, (Reported) Metoprolol Tartrate 25 Mg Tablet, 25 MG PO BID, (Reported) Montelukast Sodium 10 Mg Tablet, 10 MG PO HS, (Reported) Nitroglycerin 0.4 Mg Subl, 0.4 MG SL UD PRN for CHEST PAIN, (Reported) TAKE 1 TABLET NEEDED FOR CHEST PAIN EVERY 5 MIN X 3 DOSES Pantoprazole Sodium 40 Mg Tablet.dr, 40 MG PO DAILY Prescribed by: DANYA GAO on 08/01/16 0827 Prednisone 10 Mg Tab, 10 MG PO DAILY, (Reported) Past Odlibeg-Pveueq-Krurse Hx Patient Social History Alcohol Use: Denies Use Recreational Drug Use: No Smoking Status: Current Everyday Smoker Type Used: Cigarettes Recent Foreign Travel: No Contact w/Someone Who Travel: No Recent Infectious Disease Expo: No Recent Hopitalizations: No Physical Abuse: No Sexual Abuse: No Immunizations Up To Date Tetanus Booster (TDap): Unknown Date of Pneumonia Vaccine: Oct 08, 2002 Date of Influenza Vaccine: Mar 17, 2017 Seasonal Allergies Seasonal Allergies: Yes Surgeries History of Surgeries: Yes Surgeries: Adenoidectomy, Breast, Cardiac, Coronary Stent, Hysterectomy, Oophorectomy, Tonsillectomy Respiratory History of Respiratory Disorde: Yes (wears oxygen) Respiratory Disorders: Asthma, Chronic Bronchitis, COPD Currently Using CPAP: No Currently Using BIPAP: No Cardiovascular History of Cardiac Disorders: Yes Cardiac Disorders: Coronary Artery Disease Neurological History of Neurological Disord: Yes Neurological Disorders: Headaches /Migraines 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, Menopausal Genitourinary Genitourinary Disorders: Polycystic Kidney Disease Gastrointestinal History of Gastrointestinal Di: Yes Gastrointestinal Disorders: Gastroesophageal Reflux, Diverticulosis Musculoskeletal History of Musculoskeletal Dis: Yes Musculoskeletal Disorders: Arthritis Endocrine History of Endocrine Disorders: No Cancer History of Cancer: No Psychosocial History of Psychiatric Problem: Yes Behavioral Health Disorders: Anxiety Suicide Risk Score: 0 Integumentary History of Skin or Integumenta: Yes Skin/Integumentary Disorders: Eczema Blood Transfusions History of Blood Disorders: Yes (anemia) Adverse Reaction to a Blood Tr: No Family Medical History Significant Family History: No Pertinent Family Hx Exam Exam Vital Signs Date Time Temp Pulse Resp B/P (MAP) Pulse Ox O2 Delivery O2 Flow Rate FiO2 06/26/17 07:15 98 Vapotherm 20.00 40 06/26/17 04:00 97.8 93 20 108/73 (85) 98 Vapotherm 40.00 20.00 06/26/17 04:00 Vapotherm 20.00 40 06/26/17 01:48 108 33 99 30.00 06/26/17 01:00 87 06/26/17 00:03 97.2 89 22 114/72 (86) 99 NIV Bilevel 30.00 06/26/17 00:00 NIV Bilevel 30 06/25/17 22:05 106 33 99 30.00 06/25/17 21:00 Vapotherm 20.00 30 06/25/17 20:00 96.2 119 26 116/74 (88) 95 Vapotherm 30.00 20.00 06/25/17 20:00 Vapotherm 20.00 30 06/25/17 19:33 96 Vapotherm 20.00 30 06/25/17 19:28 96 Vapotherm 20.00 30 06/25/17 19:00 118 06/25/17 16:55 98.6 113 20 121/90 (100) 96 Vapotherm 20.00 06/25/17 16:48 NIV Bilevel 06/25/17 14:36 97 Vapotherm 20.00 30 06/25/17 13:00 121 06/25/17 12:48 117 30 95 30.00 06/25/17 12:00 97.9 87 20 113/64 (80) 95 NIV Bilevel 06/25/17 11:34 NIV Bilevel 06/25/17 10:39 92 32 97 30.00 06/25/17 09:55 NIV Bilevel 06/25/17 08:47 107 27 97 30.00 06/25/17 08:00 98.3 98 18 119/61 (80) 96 NIV Bilevel 06/25/17 08:00 NIV Bilevel I & O 06/26/17 07:00 Intake Total 2210 ml Output Total 2300 ml Balance -90 ml Capillary Refill: Less Than 3 Seconds Gastrointestinal: normal bowel sounds, non tender, soft, no pulsatile mass Results Lab Laboratory Tests 06/24/17 11:22 06/25/17 03:49 06/26/17 03:35 Assessment/Plan Assessment/Plan Acute on chronic respiratory failure Severe Oxygen dependent COPD with AE -solumedrol -SVNs Persistent tobacco dependance despite extensive education -Education Anxiety/depression. LEANN GILL DO Jun 26, 2017 08:04
[2017-06-26] MEDS: FERROUS SULF 325 MG (IRON) TAB PO SCH (08:44)
[2017-06-26] MEDS: ASCORBIC ACID (VIT C) 500 MG TABLET PO SCH (08:44)
[2017-06-26] MEDS: CLOPIDOGREL 75 MG (PLAVIX) TABLET PO SCH (08:44)
[2017-06-26] MEDS: meTOprolol TARTRATE 25 MG (LOPRESSOR) TABLET PO SCH ×2 (08:45→21:13)
[2017-06-26] MEDS: LORATADINE (CLARITIN) 10 MG TAB PO SCH (08:45)
[2017-06-26] MEDS: ISOSORBIDE MONONITRATE 30 MG (IMDUR) TAB PO SCH (08:45)
[2017-06-26] MEDS: MAGNESIUM OXIDE (MAG-OX)400 MG TAB PO SCH (08:45)
[2017-06-26] MEDS: CEFEPIME 2 GM/NS 100 ML IVPB IV SCH ×2 (08:46)
[2017-06-26] MEDS ORDERED: cloNIDine 0.2 MG (CATAPRES) TAB PO SCH (09:00)
[2017-06-26] MEDS ORDERED: DONEPEZIL 10 MG (ARICEPT) TAB PO SCH (09:00)
[2017-06-26 12:00] VITALS: BP 102/69
--- NOTE | 2017-06-26 13:34 | Progress Note (SOAP) ---
Subjective Subjective/Events-last exam States that she is feeling better this AM. Still short of breath with activity. Has not been out of bed yet this AM. Tolerating PO diet. States that she is ready to quit smoking. Review of Systems Date Seen by Provider: Jun 26, 2017 Time Seen by Provider: 09:48 Pulmonary: Dyspnea, Cough Cardiovascular: No: Chest Pain, Palpitations, Edema Gastrointestinal: No: Nausea, Vomiting, Diarrhea, Constipation Objective Exam Last Set of Vital Signs Vital Signs Date Time Temp Pulse Resp B/P (MAP) Pulse Ox O2 Delivery O2 Flow Rate FiO2 06/26/17 10:59 96 Vapotherm 15.00 30 06/26/17 08:00 99.3 06/26/17 07:00 93 06/26/17 04:00 20 108/73 (85) Capillary Refill : Less Than 3 Seconds I&O Intake and Output 06/26/17 00:00 Intake Total 1660 ml Output Total 2150 ml Balance -490 ml Intake Oral 1310 ml IV Total 350 ml Output Urine Total 2150 ml General: Alert, Oriented X3, No Acute Distress HEENT: Mucous Memb Moist/P[place]osuc Lungs: Other (Diffuse exp wheezing, no crackles, Normal work of breathing) Extremities: No Edema, No Tenderness/Swelling Neuro: Normal Speech, Cranial Nerves 3-12 NL Psych/Mental Status: Mental Status NL, Mood NL Results/Procedures Lab Laboratory Tests 06/26/17 03:35: White Blood Count 9.8, Red Blood Count 4.15L, Hemoglobin 11.2L, Hematocrit 35, Mean Corpuscular Volume 84, Mean Corpuscular Hemoglobin 27, Mean Corpuscular Hemoglobin Concent 32, Red Cell Distribution Width 19.2H, Platelet Count 405H, Mean Platelet Volume 9.2, Neutrophils (%) (Auto) 87H, Lymphocytes (%) (Auto) 4L , Monocytes (%) (Auto) 8, Eosinophils (%) (Auto) 0, Basophils (%) (Auto) 0, Neutrophils # (Auto) 8.5H, Lymphocytes # (Auto) 0.4L, Monocytes # (Auto) 0.8, Eosinophils # (Auto) 0.0, Basophils # (Auto) 0.0, Sodium Level 136, Potassium Level 4.4, Chloride Level 106, Carbon Dioxide Level 22, Anion Gap 8, Blood Urea Nitrogen 17, Creatinine 0.64, Estimat Glomerular Filtration Rate > 60, BUN/ Creatinine Ratio 27, Glucose Level 156H, Calcium Level 8.6, Magnesium Level 2.1 Microbiology 06/24/17 Blood Culture - Preliminary, Resulted No growth 06/24/17 Influenza Types A,B Antigen (MARINO) - Final, Complete Assessment/Plan Assessment/Plan Reason for Inpatient Admission: Needing increased oxygen that can not be administered at home Assessment & Plan Acute on Chronic Respiratory Failure, COPD Exacerbation 06/25 -pt currently on bipap with FiO2 30% and able to converse fairly well but does have clearly increased work of breathing with conversation -IV solumedrol -pt requesting to eat or drink; will trial on high flow NC, but discussed with patient that she will likely need intermittent bipap at this time and would recommend using bipap especially when asleep; family reports that patient typically falls asleep during the day multiple times while she is sitting down and does not feel rested; suspect she would benefit from home bipap use at night -patient follows with Dr. Ken in pulm clinic, will consult in AM -baseline O2 2.5-3L at all times -Day 2 Cefepime and Azithromycin Tobacco Abuse 06/25 -cessation encouraged; pt reports she has been cutting back Anxiety, Depression 06/25 -continue home medication HTN, CAD 06/25 -continue home medication (1) Acute and chronic respiratory failure with hypoxia Status: Acute Assessment & Plan: - Dr Ken with Pulm consulted - A/A nebs - Steroid taper - Encourage ambulation today (2) HTN (hypertension) Status: Chronic Qualifiers: Qualified Codes: I10 - Essential (primary) hypertension (3) Depression Status: Chronic Assessment & Plan: - Continue home meds (4) Tobacco abuse Status: Chronic Assessment & Plan: - Discussed the importance of cessation, patient seems more motivated then in the past (5) COPD with acute exacerbation Status: Acute Assessment & Plan: - See above Clinical Quality Measures DVT/VTE Risk/Contraindication: Risk Factor Score Per Nursin RFS Level Per Nursing on Admit: 4+=Very High MAVERICK SALDIVAR MD Jun 26, 2017 13:34
[2017-06-26] MEDS ORDERED: LORA1TAB PO (13:37)
[2017-06-26] MEDS ORDERED: ALBU2.5V4 NEB (13:37)
[2017-06-26] MEDS ORDERED: ISOS30TA3 PO (13:37)
[2017-06-26] MEDS ORDERED: IPRA3AMP NEB (13:37)
[2017-06-26] MEDS ORDERED: CLOP75TA28 PO (13:37)
[2017-06-26] MEDS ORDERED: ALBU18HF2 INH (13:37)
[2017-06-26] MEDS ORDERED: METO-333 PO (13:37)
[2017-06-26] MEDS: methylPREDNISolone 125 MG (Solu-MEDROL) VIAL IVP SCH ×2 (13:51→17:37)
[2017-06-26] MEDS ORDERED: ASPI-983 PO (13:53)
[2017-06-26] MEDS ORDERED: BUDE10.2 IH (13:53)
[2017-06-26] MEDS ORDERED: NITR0.4T39 SL (13:53)
[2017-06-26] MEDS: AZITHROMYCIN 500 MG/NS 250 ML IVPB IV SCH ×2 (14:05)
[2017-06-26 16:00] VITALS: BP 110/65
[2017-06-26] MEDS: ENOXAPARIN 40 MG/0.4 ML (LOVENOX) SYR SC SCH (17:37)
[2017-06-26 20:00] VITALS: BP 113/64
[2017-06-26] MEDS: ASPIRIN E.C. 81 MG (ECOTRIN) TAB PO SCH (21:13)
[2017-06-26] MEDS: MONTELUKAST 10 MG (SINGULAIR) TAB PO SCH (21:13)
[2017-06-27] VITALS (8 sets, daily range): BP systolic 127–162; BP diastolic 76–88
[2017-06-27] MEDS: methylPREDNISolone 125 MG (Solu-MEDROL) VIAL IVP SCH ×2 (00:15→06:15)
[2017-06-27] MEDS: CATHETER FLUSH 10 ML SYR IV PRN ×2 (00:16→09:34)
[2017-06-27] MEDS: RT-ALBUTEROL/IPRATROPIUM 3 ML (DUONEB) VIAL INH SCH ×6 (02:12→22:28)
[2017-06-27 03:25] LABS: BASOPHILS % (AUTO) 0 % (0-10); EOSINOPHILS % (AUTO) 0 % (0-10); HEMATOCRIT 34 % (35-52); HEMOGLOBIN 10.9 G/DL (11.5-16.0); LYMPHOCYTES # (AUTO) 0.5 X 10^3 (1.0-4.0); LYMPHOCYTES % (AUTO) 4 % (12-44); MEAN CORPUSCULAR HEMOGLOBIN 27 PG (25-34); MEAN CORPUSCULAR HGB CONC 32 G/DL (32-36); MEAN CORPUSCULAR VOLUME 84 FL (80-99); MEAN PLATELET VOLUME 9.3 FL (7.4-10.4); MONOCYTES # (AUTO) 0.6 X 10^3 (0.0-1.0); MONOCYTES % (AUTO) 4 % (0-12); NEUTROPHILS # (AUTO) 11.5 X 10^3 (1.8-7.8); NEUTROPHILS % (AUTO) 91 % (42-75); PLATELET COUNT 372 10^3/uL (130-400); RED BLOOD COUNT 4.04 10^6/uL (4.35-5.85); RED CELL DISTRIBUTION WIDTH 18.8 % (10.0-14.5); WHITE BLOOD COUNT 12.6 10^3/uL (4.3-11.0)
[2017-06-27 03:44] LABS: BUN/CREATININE RATIO 42; CALCIUM 8.6 MG/DL (8.5-10.1); CARBON DIOXIDE 22 MMOL/L (21-32); CHLORIDE 107 MMOL/L (98-107); CREATININE SERUM 0.62 MG/DL (0.60-1.30); GFR ESTIMATED > 60; GLUCOSE 135 MG/DL (70-105); MAGNESIUM 2.2 MG/DL (1.8-2.4); POTASSIUM 4.4 MMOL/L (3.6-5.0); SODIUM 137 MMOL/L (135-145)
[2017-06-27] MEDS: CATHETER FLUSH 10 ML SYR IV SCH ×3 (06:15→20:55)
[2017-06-27] MEDS: VENlafaxine XR 75 MG (EFFEXOR XR) CAP PO SCH (07:04)
[2017-06-27] MEDS: FOLIC ACID 1 MG TAB PO SCH (07:04)
[2017-06-27] MEDS: PANTOPRAZOLE 40 MG (PROTONIX) TAB PO SCH (07:04)
[2017-06-27] MEDS: RT-ADVAIR HFA 115/21 MCG PER PUFF IH SCH ×2 (07:06→19:09)
--- NOTE | 2017-06-27 08:35 | Pulmonary Progress Note ---
Subjective Time Seen by Provider: 08:35 Subjective/Events-last exam pt feels better however still wheezing. SHe wants to go home. Focused Exam Evaluation Lactate Level Laboratory Tests 06/24/17 11:22: Lactic Acid Level 0.99 Exam Exam Vital Signs Date Time Temp Pulse Resp B/P (MAP) Pulse Ox O2 Delivery O2 Flow Rate FiO2 06/27/17 07:06 90 Vapotherm 10.00 25 06/27/17 06:58 90 Vapotherm 10.00 25 06/27/17 04:05 98.6 85 22 140/88 (105) 91 Vapotherm 25.00 10.00 06/27/17 04:00 Vapotherm 10.00 25 06/27/17 02:13 93 Vapotherm 10.00 25 06/27/17 01:00 77 06/27/17 00:00 Vapotherm 10.00 25 06/27/17 00:00 97.3 88 22 127/79 (95) 92 Vapotherm 25.00 10.00 06/26/17 22:03 92 Vapotherm 10.00 25 06/26/17 21:00 Vapotherm 10.00 25 06/26/17 20:00 97.0 100 24 113/64 (80) 92 Vapotherm 25.00 10.00 06/26/17 20:00 Vapotherm 10.00 25 06/26/17 19:00 100 06/26/17 18:06 93 Vapotherm 10.00 25 06/26/17 16:00 104 22 110/65 (80) 93 Vapotherm 25.00 10.00 06/26/17 16:00 Vapotherm 10.00 25 06/26/17 13:00 90 06/26/17 12:00 97.4 97 Vapotherm 25.00 10.00 06/26/17 12:00 99 20 102/69 (80) 06/26/17 12:00 Vapotherm 10.00 25 06/26/17 10:59 96 Vapotherm 15.00 30 06/26/17 09:00 Vapotherm 20.00 30 I & O 06/27/17 07:00 Intake Total 1340 ml Output Total 1600 ml Balance -260 ml General Appearance: Mild Distress HEENT: PERRL/EOMI, TMs Normal Neck: Full Range of Motion, Normal Inspection Respiratory: Decreased Breath Sounds, Wheezing Cardiovascular: No Edema, No Gallop, No JVD, No Murmur, Tachycardia Capillary Refill: Less Than 3 Seconds Gastrointestinal: normal bowel sounds, non tender, soft, no pulsatile mass Neurologic/Psychiatric: Alert, Oriented x3 Skin: Normal Color Lymphatic: No Adenopathy Results Lab Laboratory Tests 06/26/17 03:35 06/27/17 03:15 Assessment/Plan Assessment/Plan Acute on chronic respiratory failure Severe Oxygen dependent COPD with AE -solumedrol -SVNs Persistent tobacco dependance despite extensive education -Education Anxiety/depression. Pt is still very wheezy and is currently on Vapotherm 233 LEANN GILL DO Jun 27, 2017 08:35
--- NOTE | 2017-06-27 08:46 | Diagnostic Imaging Report ---
INDICATION: Respiratory failure and shortness of breath. Frontal chest obtained at 8:35 a.m. and compared to 06/25/2017. FINDINGS: Heart and mediastinal silhouette are normal in appearance. The lungs are clear. There is no pneumothorax or pleural fluid. IMPRESSION: No focal infiltrate or pneumothorax or pleural fluid. Dictated by: Dictated on workstation # [id number]
[2017-06-27] MEDS: LORATADINE (CLARITIN) 10 MG TAB PO SCH (09:12)
[2017-06-27] MEDS: meTOprolol TARTRATE 25 MG (LOPRESSOR) TABLET PO SCH ×2 (09:13→20:54)
[2017-06-27] MEDS: CLOPIDOGREL 75 MG (PLAVIX) TABLET PO SCH (09:13)
[2017-06-27] MEDS: FERROUS SULF 325 MG (IRON) TAB PO SCH (09:15)
[2017-06-27] MEDS: MAGNESIUM OXIDE (MAG-OX)400 MG TAB PO SCH (09:16)
[2017-06-27] MEDS: ISOSORBIDE MONONITRATE 30 MG (IMDUR) TAB PO SCH (09:16)
[2017-06-27] MEDS: AZITHROMYCIN 250 MG TAB (ZITHROMAX) PO SCH (09:17)
[2017-06-27] MEDS: ASCORBIC ACID (VIT C) 500 MG TABLET PO SCH (09:17)
[2017-06-27] MEDS: CEFEPIME 2 GM/NS 100 ML IVPB IV SCH ×2 (09:17)
[2017-06-27] MEDS: LORazepam INJ 2 MG/ML (ATIVAN) VIAL IV PRN ×3 (09:34→20:55)
[2017-06-27] MEDS: NICOTINE PATCH REMOVAL TP SCH (09:41)
--- NOTE | 2017-06-27 11:43 | Progress Note (SOAP) ---
Subjective Subjective/Events-last exam Patient still profoundly short of breath. Stating that she wants to go home. Tolerating PO diet. BM last night. Review of Systems Date Seen by Provider: Jun 27, 2017 Time Seen by Provider: 09:27 Pulmonary: Dyspnea, Cough Cardiovascular: No: Chest Pain, Palpitations, Edema Gastrointestinal: No: Nausea, Vomiting, Diarrhea, Constipation Genitourinary: No Dysuria, No Frequency Objective Exam Last Set of Vital Signs Vital Signs Date Time Temp Pulse Resp B/P (MAP) Pulse Ox O2 Delivery O2 Flow Rate FiO2 06/27/17 09:40 92 Vapotherm 10.00 25 06/27/17 09:40 97 06/27/17 09:00 98.2 24 140/82 (101) Capillary Refill : Less Than 3 Seconds I&O Intake and Output 06/27/17 00:00 Intake Total 1790 ml Output Total 1950 ml Balance -160 ml Intake Oral 1440 ml IV Total 350 ml Output Urine Total 1950 ml # Bowel Movements 1 General: Alert, Oriented X3, Cooperative, Mild Distress (with activity) HEENT: Mucous Memb Moist/[place] Lungs: Other (Diffuse wheezing in all lung morgan, No crackles, normal work of breathing at rest) Heart: Regular Rate, No Murmurs Abdomen: Normal Bowel Sounds, Soft, No Tenderness, No Masses Extremities: No Edema, No Tenderness/Swelling Results/Procedures Lab Laboratory Tests 06/27/17 03:15: White Blood Count 12.6H, Red Blood Count 4.04L, Hemoglobin 10.9L, Hematocrit 34L , Mean Corpuscular Volume 84, Mean Corpuscular Hemoglobin 27, Mean Corpuscular Hemoglobin Concent 32, Red Cell Distribution Width 18.8H, Platelet Count 372, Mean Platelet Volume 9.3, Neutrophils (%) (Auto) 91H, Lymphocytes (%) (Auto) 4L , Monocytes (%) (Auto) 4, Eosinophils (%) (Auto) 0, Basophils (%) (Auto) 0, Neutrophils # (Auto) 11.5H, Lymphocytes # (Auto) 0.5L, Monocytes # (Auto) 0.6, Eosinophils # (Auto) 0.0, Basophils # (Auto) 0.0, Sodium Level 137, Potassium Level 4.4, Chloride Level 107, Carbon Dioxide Level 22, Anion Gap 8, Blood Urea Nitrogen 26H, Creatinine 0.62, Estimat Glomerular Filtration Rate > 60, BUN/ Creatinine Ratio 42, Glucose Level 135H, Calcium Level 8.6, Magnesium Level 2.2 Microbiology 06/24/17 Blood Culture - Preliminary, Resulted No growth 06/24/17 Influenza Types A,B Antigen (MARINO) - Final, Complete Assessment/Plan Assessment/Plan Assessment & Plan Acute on Chronic Respiratory Failure, COPD Exacerbation 06/25 -pt currently on bipap with FiO2 30% and able to converse fairly well but does have clearly increased work of breathing with conversation -IV solumedrol -pt requesting to eat or drink; will trial on high flow NC, but discussed with patient that she will likely need intermittent bipap at this time and would recommend using bipap especially when asleep; family reports that patient typically falls asleep during the day multiple times while she is sitting down and does not feel rested; suspect she would benefit from home bipap use at night -patient follows with Dr. Ken in pulm clinic, will consult in AM -baseline O2 2.5-3L at all times -Day 2 Cefepime and Azithromycin Tobacco Abuse 06/25 -cessation encouraged; pt reports she has been cutting back Anxiety, Depression 06/25 -continue home medication HTN, CAD 06/25 -continue home medication (1) Acute and chronic respiratory failure with hypoxia Status: Acute Assessment & Plan: - Dr Ken with Pulm consulted - A/A nebs - Steroid taper - Encourage ambulation today - Continues to have wheezing and shortness of breath, Vapotherm 10L - Will transfer to floor today (2) HTN (hypertension) Status: Chronic Assessment & Plan: - Controlled Qualifiers: Qualified Codes: I10 - Essential (primary) hypertension (3) Depression Status: Chronic Assessment & Plan: - Continue home meds Qualifiers: Qualified Codes: F33.0 - Major depressive disorder, recurrent, mild (4) Tobacco abuse Status: Chronic Assessment & Plan: - Discussed the importance of cessation, patient seems more motivated then in the past (5) COPD with acute exacerbation Status: Acute Assessment & Plan: - See above (6) Debility Status: Acute Assessment & Plan: PT to see patient today (7) DVT prophylaxis Status: Acute Assessment & Plan: - Lovenox Clinical Quality Measures DVT/VTE Risk/Contraindication: Risk Factor Score Per Nursin RFS Level Per Nursing on Admit: 4+=Very High GAULT,MAVERICK R MD Jun 27, 2017 11:43
[2017-06-27] MEDS: methylPREDNISolone 40 MG/ML (Solu-MEDROL) VIAL IV SCH ×3 (12:44→23:28)
--- NOTE | 2017-06-27 14:41 | Physical Therapy Evaluation ---
PT Evaluation-General Medical Diagnosis Admission Date Jun 24, 2017 at 12:20 Medical Diagnosis: chronic resp failure, COPD exacerbation Onset Date: Jun 24, 2017 Therapy Diagnosis Therapy Diagnosis: impaired mobility, strength, endurance, balance Height/Weight Height (Feet): 5 Height (Inches): 4.00 Weight (Pounds): 148 Weight (Ounces): 8.0 Precautions Precautions/Isolations: Fall Prevention, Standard Precautions Weight Bear Status Right Lower Extremity: Right Full Weight Bearing Left Lower Extremity: Left Full Weight Bearing Referral Physician: Ora Coates MD Reason for Referral: Evaluation/Treatment Medical History Additional Medical History COPD Anxiety Tobacco Abuse Dependence on Supplemental Oxygen Pulmonary Emphysema Memory Loss IBS with Diarrhea Depression Anemia - Iron Deficiecy CAD HTN Essential Tremor Reviewed History: Yes Social History Home: Single Level Current Living Status: Spouse Entry Into Home: Stairs With Railing PT Steps Into Home: 6 Prior/Core FIM Prior Level of Function Functional [place] Measure 0=Not Assessed/NA 4=Minimal Assistance 1=Total Assistance 5=Supervision or Setup 2=Maximal Assistance 6=Modified [place] 3=Moderate Assistance 7=Complete [place] Bed Mobility: 7 Transfers (B,C,W/C) (FIM): 7 Gait: 7 PT Evaluation-Current Subjective Patient in bed pre tx, agrees to PT. No complaints of pain. Patient is being transported to the 4th floor so we will see her before that, she is being changed to nasal canula from a vapotherm. Pt/Family Goals "to get stronger" Objective Patient Orientation: Person, Place, Situation Attachments: Oxygen nasal canula 10L ROM/Strength ROM Lower Extremities WNL Strength Lower Extremities 4-/5 gross bilateral lower extremities Neuromuscular (Tone, Coordination, Reflexes) NT Sensory Vision: Functional Hearing: Functional Sensation Right Lower Extremit: Intact Sensation Left Lower Extremity: Intact Transfers Functional [place] Measure 0=Not Assessed/NA 4=Minimal Assistance 1=Total Assistance 5=Supervision or Setup 2=Maximal Assistance 6=Modified [place] 3=Moderate Assistance 7=Complete [place] Transfers (B, C, W/C) (FIM): 4 Scootin Rollin Supine to/from Sit: 5 Sit to/from Stand: 4 (CGA) Gait Mode of Locomotion: Walk Anticipated Mode of Locomotion: Walk Gait (FIM): 2 Distance: 60' Gait Level of Assist: 4 Gait Persons Needed: 1 Gait Assistive Device: Handheld Assist Comments/Gait Description min assist for balance, patient is unsteady and gets SOB quickly Balance Sitting Static: Normal Sitting Dynamic: Normal Standing Static: Fair Standing Dynamic: Fair Assessment/Needs Patient has poor endurance and gets SOB very easily. Rehab Potential: Fair PT Short Term Goals Short Term Goals Time Frame: Jul 04, 2017 Transfers (B,C,W/C) (FIM): 5 Gait (FIM): 5 Gait Distance Comment: 150' Gait Level of Assist: 5 Gait Assistive Device: None, FWW, Handheld Assist PT Plan Problem List Problem List: Activity Tolerance, Functional Strength, Safety, Balance, Gait, Transfer, Bed Mobility Treatment/Plan Treatment Plan: Continue Plan of Care Treatment Plan: Bed Mobility, Education, Functional Activity Shanita, Functional Strength, Gait, Safety, Therapeutic Exercise, Transfers Treatment Duration: Jul 04, 2017 Frequency: 11 times per week Estimated Hrs Per Day: .25 hour per day (15-30') Patient and/or Family Agrees t: Yes Safety Risks/Education Patient Education: Gait Training, Transfer Techniques, Correct Positioning, Safety Issues Teaching Recipient: Patient Teaching Methods: Demonstration, Discussion Response to Teaching: Reinforcement Needed Discharge Recommendations Plan Patient will perform bed mobility and transfer training, balance and endurance training, functional strengthening, stair training, gait training, and education , to improve functional mobility and independence at home. Therapy D/C Recommendations: Home w/ Family Support Time/GCodes Time In: 1410 Time Out: 1425 Total Billed Treatment Time: 15 Total Billed Treatment 1 visit TERESA 15' ANDRZEJ NOYOLA PT Jun 27, 2017 14:41
[2017-06-27] MEDS: ENOXAPARIN 40 MG/0.4 ML (LOVENOX) SYR SC SCH (17:56)
[2017-06-27] MEDS ORDERED: RT-ADVAIR HFA 115/21 MCG PER PUFF IH SCH (20:00)
[2017-06-27] MEDS: MONTELUKAST 10 MG (SINGULAIR) TAB PO SCH (20:54)
[2017-06-27] MEDS: ASPIRIN E.C. 81 MG (ECOTRIN) TAB PO SCH (20:55)
[2017-06-28] VITALS: BP 147/78
[2017-06-28] MEDS: RT-ALBUTEROL/IPRATROPIUM 3 ML (DUONEB) VIAL INH SCH ×5 (02:07→21:36)
[2017-06-28 04:00] VITALS: BP 138/88
[2017-06-28] MEDS: CATHETER FLUSH 10 ML SYR IV SCH ×3 (05:25→20:13)
[2017-06-28] MEDS: methylPREDNISolone 40 MG/ML (Solu-MEDROL) VIAL IV SCH (05:25)
[2017-06-28] MEDS: VENlafaxine XR 75 MG (EFFEXOR XR) CAP PO SCH (05:26)
[2017-06-28] MEDS: FOLIC ACID 1 MG TAB PO SCH (05:26)
[2017-06-28] MEDS: PANTOPRAZOLE 40 MG (PROTONIX) TAB PO SCH (05:26)
--- NOTE | 2017-06-28 06:22 | Pulmonary Progress Note ---
Subjective Time Seen by Provider: 06:22 Subjective/Events-last exam NO complications noted. Pt appears much improved currently. Exam Exam Vital Signs Date Time Temp Pulse Resp B/P (MAP) Pulse Ox O2 Delivery O2 Flow Rate FiO2 06/28/17 04:00 98.2 106 20 138/88 (105) 93 Vapotherm 25.00 15.00 06/28/17 02:07 96 Vapotherm 15.00 30 06/28/17 01:00 66 06/28/17 00:00 97.0 84 20 147/78 (101) 95 Vapotherm 30.00 15.00 06/27/17 22:29 94 Vapotherm 15.00 30 06/27/17 21:00 Vapotherm 10.00 25 06/27/17 20:00 98.9 107 18 152/82 (105) 92 Vapotherm 25.00 10.00 06/27/17 19:17 Vapotherm 10.00 25 06/27/17 19:09 92 Vapotherm 10.00 25 06/27/17 19:00 104 06/27/17 16:49 97.9 99 18 158/77 (104) 90 Vapotherm 25.00 10.00 06/27/17 16:00 Vapotherm 10.00 25 06/27/17 14:30 97.0 96 20 162/81 (108) 90 Vapotherm 25.00 10.00 06/27/17 13:57 93 Vapotherm 10.00 25 06/27/17 13:00 92 06/27/17 12:46 Vapotherm 10.00 25 06/27/17 12:44 98.0 100 26 138/76 (96) 92 Vapotherm 25.00 10.00 06/27/17 09:40 92 Vapotherm 10.00 25 06/27/17 09:40 97 92 25 06/27/17 09:00 98.2 93 24 140/82 (101) 90 Vapotherm 25.00 10.00 06/27/17 09:00 Vapotherm 10.00 25 06/27/17 09:00 Vapotherm 10.00 25 06/27/17 07:06 90 Vapotherm 10.00 25 06/27/17 07:00 94 06/27/17 06:58 90 Vapotherm 10.00 25 I & O 06/28/17 07:00 Intake Total 1700 ml Output Total 0 ml Balance 1700 ml General Appearance: No Apparent Distress HEENT: PERRL/EOMI, TMs Normal Neck: Full Range of Motion, Normal Inspection Respiratory: Decreased Breath Sounds, Wheezing Cardiovascular: No Edema, No Gallop, No JVD, No Murmur, Tachycardia Capillary Refill: Less Than 3 Seconds Gastrointestinal: normal bowel sounds, non tender, soft, no pulsatile mass Neurologic/Psychiatric: Alert, Oriented x3 Skin: Normal Color Lymphatic: No Adenopathy Results Lab Laboratory Tests 06/27/17 03:15 Assessment/Plan Assessment/Plan Acute on chronic respiratory failure Severe Oxygen dependent COPD with AE -solumedrol - change to prednisone taper -lyn [place] Persistent tobacco dependance despite extensive education -Education Anxiety/depression. Pt is ok from pulmonary standpoint for discharge with prednisone taper. 232 LEANN GILL DO Jun 28, 2017 06:22
[2017-06-28] MEDS: RT-ADVAIR HFA 115/21 MCG PER PUFF IH SCH ×2 (06:49→21:36)
[2017-06-28 08:00] VITALS: BP 169/82
[2017-06-28] MEDS: ISOSORBIDE MONONITRATE 30 MG (IMDUR) TAB PO SCH (09:10)
[2017-06-28] MEDS: AZITHROMYCIN 250 MG TAB (ZITHROMAX) PO SCH (09:10)
[2017-06-28] MEDS: CLOPIDOGREL 75 MG (PLAVIX) TABLET PO SCH (09:10)
[2017-06-28] MEDS: LORATADINE (CLARITIN) 10 MG TAB PO SCH (09:10)
[2017-06-28] MEDS: ASCORBIC ACID (VIT C) 500 MG TABLET PO SCH (09:10)
[2017-06-28] MEDS: meTOprolol TARTRATE 25 MG (LOPRESSOR) TABLET PO SCH ×2 (09:10→20:13)
[2017-06-28] MEDS: LORazepam INJ 2 MG/ML (ATIVAN) VIAL IV PRN (09:10)
[2017-06-28] MEDS: MAGNESIUM OXIDE (MAG-OX)400 MG TAB PO SCH (09:11)
[2017-06-28] MEDS: CEFEPIME 2 GM/NS 100 ML IVPB IV SCH ×2 (09:11)
[2017-06-28] MEDS: NICOTINE PATCH REMOVAL TP SCH (09:11)
--- NOTE | 2017-06-28 09:51 | Physical Therapy Daily Note ---
PT Daily Note-Current Subjective Pt laying Supine in bed upon arrival. Pt reports discharging today but waiting on Dr Coates to see before leaving. Pain Location: No Pain Reported Mental Status Patient Orientation: Person, Place, Time, Situation Attachments: Oxygen (2L) Transfers Functional [place] Measure 0=Not Assessed/NA 4=Minimal Assistance 1=Total Assistance 5=Supervision or Setup 2=Maximal Assistance 6=Modified [place] 3=Moderate Assistance 7=Complete IndependenceIRFPAI Quality Coding Scale 6 Independent with activity with or without an assistive device 5 Patient requires set up or clean up by helper. Patient completes activity by themselves 4 Supervision or touching assist (CGA). [place] provide cues , steadying assist 3 The helper provides less than half the effort to complete the activity 2 The helper provides more than half the effort to complete the activity 1 Dependent. The helper does all the effort to complete an activity 7 Patient refused to complete or attempt activity 9 The patient did not perform the activity before the current illness or injury 88 Not attempted due to Medical conditions or safety concerns Weight Bearing Right Lower Extremity: Right Full Weight Bearing Left Lower Extremity: Left Full Weight Bearing Exercises Supine Ex: Ankle pumps, Quad Set, Glut sets, Heel Slides, Straight leg raise, Hip abd/add Supine Reps: [address] Suellen garciaed discharge but waiting for Dr Jaxon garcia for discharge. BRACELET [employer] BROOCH MAKER had pt complete Supine Ex in bed and ask for questions or review over stairs, car transfer, etc but pt stated she felt better and was just ready to discharge. Pt resting Supine in bed visiting with Sp at end of tx with all needs met. Assessment Current Status: Good Progress Pt is on only 2L of O2 and reports feeling better. Pt able to complete Supine Ex. PT Short Term Goals Short Term Goals Time Frame: Jul 04, 2017 Transfers (B,C,W/C) (FIM): 5 Gait (FIM): 5 Gait Distance Comment: 150' Gait Level of Assist: 5 Gait Assistive Device: None, FWW, Handheld Assist PT Plan Problem List Problem List: Activity Tolerance, Functional Strength, Gait Treatment/Plan Treatment Plan: Continue Plan of Care Treatment Plan: Bed Mobility, Education, Functional Activity Shanita, Functional Strength, Gait, Safety, Therapeutic Exercise, Transfers Treatment Duration: Jul 04, 2017 Frequency: 11 times per week Estimated Hrs Per Day: .25 hour per day (15-30') Patient and/or Family Agrees t: Yes Safety Risks/Education Patient Education: Correct Positioning, Safety Issues Teaching Recipient: Patient, Significant Other Teaching Methods: Discussion Response to Teaching: Verbalize Understanding Time/GCodes Time In: 830 Time Out: 845 Total Billed Treatment Time: 15 Total Billed Treatment 1, GT (15m) ROCKY MORROW [employer]OOCH MAKER Jun 28, 2017 09:51
--- NOTE | 2017-06-28 11:37 | Progress Note (SOAP) ---
Subjective Subjective/Events-last exam Patient wanting to go home. Still having alot of shortness of breath with minimal activity. Increased work of breathing. Tolerating PO diet and BM last night. Review of Systems Date Seen by Provider: Jun 28, 2017 Time Seen by Provider: 09:45 Pulmonary: Dyspnea, Cough Cardiovascular: No: Chest Pain, Palpitations Gastrointestinal: No: Nausea, Vomiting, Diarrhea, Constipation Objective Exam Last Set of Vital Signs Vital Signs Date Time Temp Pulse Resp B/P (MAP) Pulse Ox O2 Delivery O2 Flow Rate FiO2 06/28/17 10:22 94 Nasal Cannula 2.00 06/28/17 08:00 98.9 84 20 169/82 (111) 06/28/17 06:49 25 Capillary Refill : Less Than 3 Seconds I&O Intake and Output 06/27/17 23:59 Intake Total 1600 ml Output Total 350 ml Balance 1250 ml Intake Oral 1600 ml Output Urine Total 350 ml # Voids 3 # Bowel Movements 2 General: Alert, Oriented X3, Cooperative, Mild Distress HEENT: Mucous Memb Moist/[place] Lungs: Other (Diffuse wheezing, no crackles, decreased air flow, Increased work of breathing.) Heart: Regular Rate, No Murmurs Abdomen: Soft, No Tenderness Extremities: No Edema, No Tenderness/Swelling Results/Procedures Lab Microbiology 06/24/17 Blood Culture - Preliminary, Resulted No growth 06/24/17 Influenza Types A,B Antigen (MARINO) - Final, Complete Assessment/Plan Assessment/Plan Assessment & Plan Acute on Chronic Respiratory Failure, COPD Exacerbation 06/25 -pt currently on bipap with FiO2 30% and able to converse fairly well but does have clearly increased work of breathing with conversation -IV solumedrol -pt requesting to eat or drink; will trial on high flow NC, but discussed with patient that she will likely need intermittent bipap at this time and would recommend using bipap especially when asleep; family reports that patient typically falls asleep during the day multiple times while she is sitting down and does not feel rested; suspect she would benefit from home bipap use at night -patient follows with Dr. Ken in pulm clinic, will consult in AM -baseline O2 2.5-3L at all times -Day 2 Cefepime and Azithromycin Tobacco Abuse 06/25 -cessation encouraged; pt reports she has been cutting back Anxiety, Depression 06/25 -continue home medication HTN, CAD 3/11 -continue home medication (1) Acute and chronic respiratory failure with hypoxia Status: Acute Assessment & Plan: - Dr Ken with Pulm consulted - A/A nebs - Steroid taper, switch to PO steroids - Encourage ambulation today - Off vapotherm this AM - PO antibiotics day 08/21 (2) HTN (hypertension) Status: Chronic Assessment & Plan: - Controlled, Continue to monitor Qualifiers: Qualified Codes: I10 - Essential (primary) hypertension (3) Depression Status: Chronic Assessment & Plan: - Continue home meds Qualifiers: Qualified Codes: F33.0 - Major depressive disorder, recurrent, mild (4) Tobacco abuse Status: Chronic Assessment & Plan: - Discussed the importance of cessation, patient seems more motivated then in the past (5) COPD with acute exacerbation Status: Acute (6) Debility Status: Acute Assessment & Plan: PT to see patient today (7) DVT prophylaxis Status: Acute Assessment & Plan: - Lovenox Clinical Quality Measures DVT/VTE Risk/Contraindication: Risk Factor Score Per Nursin RFS Level Per Nursing on Admit: 4+=Very High MAVERICK SALDIVAR MD Jun 28, 2017 11:37
[2017-06-28 12:00] VITALS: BP 134/89
[2017-06-28] MEDS: predniSONE 10 MG TAB PO SCH (12:12)
[2017-06-28] MEDS: LORazepam 0.5 MG (ATIVAN) TABLET PO PRN ×2 (14:58→22:22)
--- NOTE | 2017-06-28 15:32 | Physical Therapy Daily Note ---
PT Daily Note-Current Subjective Pt sitting up in bed upon arrival. Pt is insistent that she is going home today. Pt reports needing to use restroom before walking but agrees to PT. Pain Location: No Pain Reported Mental Status Patient Orientation: Person, Place, Situation Attachments: Oxygen (2L) Pt insist on taking Pulse Ox/Vitals Cart with her for ambulation. Transfers Functional [place] Measure 0=Not Assessed/NA 4=Minimal Assistance 1=Total Assistance 5=Supervision or Setup 2=Maximal Assistance 6=Modified [place] 3=Moderate Assistance 7=Complete IndependenceIRFPAI Quality Coding Scale 6 Independent with activity with or without an assistive device 5 Patient requires set up or clean up by helper. Patient completes activity by themselves 4 Supervision or touching assist (CGA). [place] provide cues , steadying assist 3 The helper provides less than half the effort to complete the activity 2 The helper provides more than half the effort to complete the activity 1 Dependent. The helper does all the effort to complete an activity 7 Patient refused to complete or attempt activity 9 The patient did not perform the activity before the current illness or injury 88 Not attempted due to Medical conditions or safety concerns Scootin Rollin Supine to/from Sit: 5 Sit to/from Stand: 5 Weight Bearing Right Lower Extremity: Right Full Weight Bearing Left Lower Extremity: Left Full Weight Bearing Gait Training Distance (FIM): 0=355-03 ft Distance: 100' Gait Level of Assist: 5 Gait Persons Needed: 1 Gait Assistive Device: None Pt pushes Pulse Ox/Vitals Cart for support while ambulating. Pt's O2 drops from 93% to 87% w/in short distance of walking. Pt returns to EOB breathing heavy. RT arrives for tx and O2 rises during tx to 95% after several minutes. Exercises Seated Therapy Exercises: Sit to stand Treatments Pt transfers from Supine to EOB to Standing at SBA w/o AD in quick fashion to use restroom. Pt pushes Pulse Ox/Vitals Cart for support while ambulating. Pt' s O2 drops from 93% to 87% w/in short distance of walking. Pt returns to EOB breathing heavy. RT arrives for tx and O2 rises during tx to 95%. Pt finishing tx with RT at end of PT with all needs met. Assessment Current Status: Fair Progress Pt wants to go home today but gets SOA quickly and DYE LINE OPERATOR & RT advised going home now would mean a trip back to hospital in the near future, better to get stronger and breathing better before discharging. PT Short Term Goals Short Term Goals Time Frame: Jul 04, 2017 Transfers (B,C,W/C) (FIM): 5 Gait (FIM): 5 Gait Distance Comment: 150' Gait Level of Assist: 5 Gait Assistive Device: None, FWW, Handheld Assist PT Plan Problem List Problem List: Activity Tolerance, Functional Strength, Safety, Balance, Gait Treatment/Plan Treatment Plan: Continue Plan of Care Treatment Plan: Bed Mobility, Education, Functional Activity Shanita, Functional Strength, Gait, Safety, Therapeutic Exercise, Transfers Treatment Duration: Jul 04, 2017 Frequency: 11 times per week Estimated Hrs Per Day: .25 hour per day (15-30') Patient and/or Family Agrees t: Yes Safety Risks/Education Patient Education: Gait Training, Transfer Techniques, Correct Positioning, Safety Issues Teaching Recipient: Patient Teaching Methods: Discussion Response to Teaching: Verbalize Understanding Time/GCodes Time In: 1335 Time Out: 1420 Total Billed Treatment Time: 45 Total Billed Treatment 1, GT (15m) & FA x2 (30m) ROCKY MORROW DYE LINE OPERATOR Jun 28, 2017 15:32
[2017-06-28 16:00] VITALS: BP 165/79
[2017-06-28] MEDS: ENOXAPARIN 40 MG/0.4 ML (LOVENOX) SYR SC SCH (16:45)
[2017-06-28 19:45] VITALS: BP 147/72
[2017-06-28] MEDS: MONTELUKAST 10 MG (SINGULAIR) TAB PO SCH (20:13)
[2017-06-28] MEDS: ASPIRIN E.C. 81 MG (ECOTRIN) TAB PO SCH (20:13)
[2017-06-28] MEDS: CEFDINIR 300 MG (OMNICEF) CAP PO SCH (20:13)
[2017-06-29] VITALS: BP 140/75
[2017-06-29] MEDS: RT-ALBUTEROL/IPRATROPIUM 3 ML (DUONEB) VIAL INH SCH ×3 (01:24→10:04)
[2017-06-29 03:54] VITALS: BP 139/72
[2017-06-29] MEDS: CATHETER FLUSH 10 ML SYR IV SCH (05:31)
[2017-06-29] MEDS: VENlafaxine XR 75 MG (EFFEXOR XR) CAP PO SCH (05:32)
[2017-06-29] MEDS: PANTOPRAZOLE 40 MG (PROTONIX) TAB PO SCH (05:32)
[2017-06-29] MEDS: LORazepam 0.5 MG (ATIVAN) TABLET PO PRN ×2 (05:32→12:13)
[2017-06-29] MEDS: FOLIC ACID 1 MG TAB PO SCH (05:32)
[2017-06-29 05:54] LABS: BASOPHILS % (AUTO) 0 % (0-10); EOSINOPHILS % (AUTO) 0 % (0-10); HEMATOCRIT 36 % (35-52); HEMOGLOBIN 11.6 G/DL (11.5-16.0); LYMPHOCYTES # (AUTO) 1.8 X 10^3 (1.0-4.0); LYMPHOCYTES % (AUTO) 16 % (12-44); MEAN CORPUSCULAR HEMOGLOBIN 27 PG (25-34); MEAN CORPUSCULAR HGB CONC 33 G/DL (32-36); MEAN CORPUSCULAR VOLUME 84 FL (80-99); MEAN PLATELET VOLUME 9.3 FL (7.4-10.4); MONOCYTES # (AUTO) 1.7 X 10^3 (0.0-1.0); MONOCYTES % (AUTO) 14 % (0-12); NEUTROPHILS % (AUTO) 69 % (42-75); PLATELET COUNT 374 10^3/uL (130-400); RED BLOOD COUNT 4.26 10^6/uL (4.35-5.85); RED CELL DISTRIBUTION WIDTH 18.2 % (10.0-14.5); WHITE BLOOD COUNT 11.6 10^3/uL (4.3-11.0)
[2017-06-29 06:37] LABS: ALANINE AMINOTRANSFERASE 16 U/L (0-55); ALBUMIN 3.6 GM/DL (3.2-4.5); ALKALINE PHOSPHATASE 40 U/L (40-136); BILIRUBIN,TOTAL 0.2 MG/DL (0.1-1.0); BUN/CREATININE RATIO 29; CALCIUM 8.9 MG/DL (8.5-10.1); CARBON DIOXIDE 26 MMOL/L (21-32); CHLORIDE 102 MMOL/L (98-107); CREATININE SERUM 0.65 MG/DL (0.60-1.30); GFR ESTIMATED > 60; GLUCOSE 84 MG/DL (70-105); POTASSIUM 4.2 MMOL/L (3.6-5.0); SODIUM 137 MMOL/L (135-145); TOTAL PROTEIN 5.7 GM/DL (6.4-8.2)
[2017-06-29] MEDS: RT-ADVAIR HFA 115/21 MCG PER PUFF IH SCH (07:20)
--- NOTE | 2017-06-29 07:54 | Pulmonary Progress Note ---
Subjective Time Seen by Provider: 07:52 Subjective/Events-last exam pt is doing better and wants to go home. Exam Exam Vital Signs Date Time Temp Pulse Resp B/P (MAP) Pulse Ox O2 Delivery O2 Flow Rate FiO2 06/29/17 07:11 96 Nasal Cannula 2.00 06/29/17 07:00 77 06/29/17 03:54 98.0 96 20 139/72 (94) 93 High Flow N/C 2.00 06/29/17 01:24 96 Nasal Cannula 2.50 06/29/17 01:00 70 06/29/17 00:00 97.8 88 17 140/75 (96) 95 High Flow N/C 2.00 06/28/17 21:45 98 Nasal Cannula 2.50 06/28/17 21:37 95 Nasal Cannula 2.50 06/28/17 21:00 Nasal Cannula 2.50 06/28/17 19:45 98.0 97 18 147/72 (97) 96 High Flow N/C 2.00 06/28/17 19:00 83 06/28/17 16:00 96.7 97 18 165/79 (107) 95 High Flow N/C 2.00 06/28/17 14:13 85 Nasal Cannula 2.00 06/28/17 13:00 83 06/28/17 12:00 97.6 96 18 134/89 (104) 95 High Flow N/C 2.00 06/28/17 10:22 94 Nasal Cannula 2.00 06/28/17 08:33 Nasal Cannula 2.00 06/28/17 08:00 98.9 84 20 169/82 (111) 94 High Flow N/C 2.00 I & O 06/29/17 07:00 Intake Total 1300 ml Balance 1300 ml General Appearance: No Apparent Distress HEENT: PERRL/EOMI, TMs Normal Neck: Full Range of Motion, Normal Inspection Respiratory: Decreased Breath Sounds, Wheezing Cardiovascular: No Edema, No Gallop, No JVD, No Murmur, Tachycardia Capillary Refill: Less Than 3 Seconds Gastrointestinal: normal bowel sounds, non tender, soft, no pulsatile mass Neurologic/Psychiatric: Alert, Oriented x3 Skin: Normal Color Lymphatic: No Adenopathy Results Lab Laboratory Tests 06/29/17 05:38 Assessment/Plan Assessment/Plan Acute on chronic respiratory failure Severe Oxygen dependent COPD with AE - prednisone taper -SVNs, advair Persistent tobacco dependance despite extensive education -Education Anxiety/depression. Pt is ok from pulmonary standpoint for discharge with prednisone taper. PT is currently better then her baseline. I am going to sign off please call with any questions or concerns. 232 LEANN GILL DO Jun 29, 2017 07:54
[2017-06-29 08:30] VITALS: BP 144/80
[2017-06-29] MEDS: CLOPIDOGREL 75 MG (PLAVIX) TABLET PO SCH (08:55)
[2017-06-29] MEDS: CEFDINIR 300 MG (OMNICEF) CAP PO SCH (08:55)
[2017-06-29] MEDS: ASCORBIC ACID (VIT C) 500 MG TABLET PO SCH (08:55)
[2017-06-29] MEDS: LORATADINE (CLARITIN) 10 MG TAB PO SCH (08:55)
[2017-06-29] MEDS: meTOprolol TARTRATE 25 MG (LOPRESSOR) TABLET PO SCH (08:55)
[2017-06-29] MEDS: MAGNESIUM OXIDE (MAG-OX)400 MG TAB PO SCH (08:55)
[2017-06-29] MEDS: ISOSORBIDE MONONITRATE 30 MG (IMDUR) TAB PO SCH (08:55)
--- NOTE | 2017-06-29 11:18 | Discharge Summary ---
Diagnosis/Chief Complaint Date of Admission Jun 24, 2017 at 12:20 pm Date of Discharge Chief Complaint/HPI Chief Complaint/HPI Per ED notes: PT ARRIVES VIA POV FROM HOME PT WITH COPD, AND DAUGHTER STATES "IT'S BEEN PRETTY BAD LATELY--FOR THE LAST SEVERAL MONTHS" PT HAS HAD PRODUCTIVE COUGH WITH COLORED SPUTUM FOR OVER A WEEK PT HAS HAD INCREASED SHORTNESS OF BREATH THIS WEEK AND ESPECIALLY SINCE LAST NIGHT, AND SHE WOKE HER UP AT 0500 THIS AM DUE TO PROBLEMS BREATHING PT HAD TEMP OF 102.6 ON ARRIVAL, SHE AND FAMILY WERE UNAWARE THAT SHE HAD FEVER NO SWELLING IN LEGS/ FEET OR PAIN IN CALVES PT STILL SMOKES 1-2 PPD PT IS ON DAILY PREDNISONE FOR COPD PT IS ALSO ON HOME O2 AT 2L/NC PT HAS NEVER BEEN ON VENTILATOR PT USED NEBULIZER AROUND 0500 TODAY PT WAS ON ANTIBIOTICS LAST WEEK FOR UTI, NAME UNKNOWN, FINISHED A FEW DAYS AGO PCP: DR. 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 GILL Discharge Summary-Simple/Stand Consultations Discharge Physical Examination Allergies: Coded Allergies: tramadol (Unverified Allergy, Mild, 07/08/13) Penicillins (Verified Allergy, Unknown, 07/08/13) Sulfa (Sulfonamide Antibiotics) (Verified Allergy, Unknown, 07/08/13) sumatriptan (Verified Allergy, Unknown, 07/08/13) Vitals & I&Os Vital Sign - Last 12Hours Date Time Temp Pulse Resp B/P (MAP) Pulse Ox O2 Delivery O2 Flow Rate FiO2 06/29/17 10:05 Nasal Cannula 2.00 06/29/17 09:50 96 06/29/17 08:30 98.7 92 22 144/80 (101) 06/28/17 06:49 25 Intake and Output 06/29/17 00:00 Intake Total 800 ml Balance 800 ml Hospital Course See final discharge diagnosis. Discharge Instructions to patient/family Please see electronic discharge instructions given to patient. Discharge Medications Reviewed and agree with Discharge Medication list on patient's Discharge Instruction sheet Clinical Quality Measures DVT/VTE Risk/Contraindication: Risk Factor Score Per Nursin RFS Level Per Nursing on Admit: 4+=Very High MAVERICK SALDIVAR MD Jun 29, 2017 11:18 am
[2017-06-29] MEDS ORDERED: CEFD300C3 PO (11:22)
[2017-06-29] MEDS ORDERED: PRD10T PO (11:22)
--- NOTE | 2017-06-29 11:27 | Discharge Instructions ---
Discharge [facility] Discharge Medications New, Converted or Re-Newed RX: Transmitted to Pharmacy New Medications: Cefdinir (Cefdinir) 300 Mg Capsule 300 MG PO BID, #4 CAP Prednisone (Prednisone) 10 Mg Tab 60 MG PO DAILY@1200, #35 TAB Continued Medications: Albuterol Sulfate (Albuterol Sulfate) 2.5 Mg/3 Ml Vial.neb 2.5 MG NEB Q6H PRN for WHEEZING, EA Albuterol Sulfate (Ventolin Hfa) 18 Gm Hfa.aer.ad 2 PUFF INH Q4H PRN for SHORTNESS OF BREATH, INHALER Ascorbate Calcium (Vitamin C) 500 Mg Tablet 500 MG PO DAILY, TAB Aspirin (Aspirin EC) 81 Mg Tablet.dr 81 MG PO HS, TAB Budesonide/Formoterol Fumarate (Symbicort 160-4.5 Mcg Inhaler) 10.2 Gm Hfa.aer.ad 2 PUFF IH BID, INHALER Cetirizine HCl (Cetirizine HCl) 10 Mg Tablet 10 MG PO DAILY, TAB Clopidogrel Bisulfate (Clopidogrel) 75 Mg Tablet 75 MG PO DAILY, TAB Desvenlafaxine Succinate (Pristiq ER) 100 Mg Tab.er.24h 100 MG PO DAILY, TAB Ferrous Sulfate (Iron) 325 Mg Tablet 650 MG PO DAILY, TAB TAKES 2 (325MG) TABLETS Folic Acid (Folic Acid) 0.4 Mg Tablet 0.4 MG PO DAILY, TAB Ipratropium/Albuterol Sulfate (Iprat-Albut 0.5-3(2.5) mg/3 ml) 3 Ml Ampul.neb 3 ML NEB QID PRN for SHORTNESS OF BREATH, EACH Isosorbide Mononitrate (Isosorbide Mononitrate ER) 30 Mg Tab.er.24h 30 MG PO DAILY, TAB Lorazepam (Lorazepam) 1 Mg Tablet 1 MG PO BID PRN for ANXIETY, TAB Magnesium Oxide (Magnesium) 250 Mg Tablet 500 MG PO DAILY, TAB Metoprolol Tartrate (Metoprolol Tartrate) 25 Mg Tablet 25 MG PO BID, TAB Montelukast Sodium (Montelukast Sodium) 10 Mg Tablet 10 MG PO HS, TAB LAST FILLED #30 03-13-17 Nitroglycerin (Nitroglycerin) 0.4 Mg Tab.subl 0.4 MG SL UD PRN for CHEST PAIN, TAB Discontinued Medications: Prednisone (Prednisone) 10 Mg Tab 10 MG PO DAILY, TAB Patient Instructions Goal/Follow Up Appt: You have an appt with Reny Atkinson on July 03 @ 1140 AM for your hospital followup appt Patient Instructions: - It is important that you wear your oxygen at all times - You are doing a good job with cessation, keep up your good work Activity & Diet Discharge Diet: Cardiac Diet Activity as Tolerated: Yes Copy Copies To 1: Fuentes ZACARIAS HOLLY R MD Jun 29, 2017 11:27 am
[2017-06-29] MEDS: predniSONE 10 MG TAB PO SCH (12:13)
== END 2017-06-29 12:40 | disposition home or self-care (01) | DRG 189 ==
LOC: EDUNIT# 11:13 → ER 11:15 → ICU 12:20 → 4TH 06-27 14:25
PROVIDERS: ADMIT Family Medicine; ATTEND Family Medicine
DX: J96.21 Acute and chronic respiratory failure with hypoxia (principal); J43.9 Emphysema, unspecified; F17.210 Nicotine dependence, cigarettes, uncomplicated; I25.10 Atherosclerotic heart disease of native coronary artery without angina pectoris; I10 Essential (primary) hypertension; F41.9 Anxiety disorder, unspecified; F32.9 Major depressive disorder, single episode, unspecified; Q61.3 Polycystic kidney, unspecified; K58.9 Irritable bowel syndrome, unspecified; G25.0 Essential tremor; R41.3 Other amnesia; J30.2 Other seasonal allergic rhinitis; G43.909 Migraine, unspecified, not intractable, without status migrainosus; K21.9 Gastro-esophageal reflux disease without esophagitis; K57.90 Diverticulosis of intestine, part unspecified, without perforation or abscess without bleeding; M19.91 Primary osteoarthritis, unspecified site; D50.9 Iron deficiency anemia, unspecified; R53.81 Other malaise; Z99.81 Dependence on supplemental oxygen; Z79.52 Long term (current) use of systemic steroids; Z95.5 Presence of coronary angioplasty implant and graft
CPT/HCPCS: 36415; 71045; 80048; 80053; 82550; 82553; 82805; 83605; 83735; 83880; 84443; 84484; 85007; 85025; 85027; 85610; 85730; 87040; 87804; 93005; 93041; 94640; 94660; 94664; 94760; 94761; 96365; 96375

== ENCOUNTER 2017-09-08 17:46 | Inpatient (IN) | payer MEDICARE ==
[~2017-09-08] VITALS: Ht 162.6 cm; Wt 51.8 kg
[~2017-09-08 17:46] MED LIST changes: +ALBU18HF2 INH; +ALBU2.5V4 NEB; +ASPI-983 PO; +BUDE10.2 IH; +CEFD300C3 PO; +CLOP75TA28 PO; +IPRA3AMP NEB; +ISOS30TA3 PO; +LORA1TAB PO; +METO-333 PO; +NITR0.4T39 SL
--- OUTSIDE RECORDS SUMMARY | 2017-09-08 17:52 | XMS REPORT ---
Author Author CASEY SIMPSON Organization [facility] Address [address] [place] [address] Care Team Providers Care Pockets And Pieces Necktie Operator Name Role Phone CASEY SIMPSON Unavailable PROBLEMS Type Condition ICD9-CM Code SOC84-BX Code Onset Dates Condition Status SNOMED Code Problem Memory loss R41.3 Active 20638707 Problem Other emphysema J43.8 Active 88832568 Problem Irritable bowel syndrome with diarrhea K58.0 Active 230515408 Problem Chronic prescription benzodiazepine use Z79.899 Active 020912479 Problem Benign familial tremor G25.0 Active 515940813 Problem Other iron deficiency anemia D50.8 Active 72071995 Problem Reactive depression F32.9 Active 91779313 Problem Coarse tremors G25.2 Active 16912221 Problem Claustrophobia F40.240 Active 66887828 Problem Essential hypertension I10 Active 56720372 Problem Anxiety F41.9 Active 64490723 Problem Nicotine abuse Z72.0 Active 04770534 Problem Supplemental oxygen dependent Z99.81 Active 559379749812 Problem Chronic obstructive pulmonary disease with acute exacerbation J44.1 Active 417016556 Problem CAD (coronary artery disease) 414.00 Active 92414916 Problem Pulmonary emphysema, unspecified emphysema type J43.9 Active 28822049 ALLERGIES No Information ENCOUNTERS Encounter Location Date Diagnosis [facility] [id number] [address] Sep, [facility] [id number] [place] [address] 74625- 2312 Jul, Anxiety F41.9 [facility] [address] [address] Jun, Pulmonary emphysema, unspecified emphysema type J43.9 and Anxiety F41.9 [facility] [id number] [place] [address] 76540- 7984 Jun, Anxiety F41.9 [facility] [address] [address]- 9776 Jun, [facility] [id number] [place] [address] 53391- 5093 Jun, [facility] [address] 6[address]60- 7589 Jun, [facility] [address] [address] Jun, Dysuria R30.0 and Acute cystitis with hematuria N30.01 [address] 41792- 0745 May, Anxiety F41.9 and Chronic prescription benzodiazepine use Z79.899 [address] [address] 02974- 5381 May, Anxiety F41.9 and Chronic prescription benzodiazepine use Z79.899 [place] [id number] [place] [address] 23514- 0338 May, Benign familial tremor G25.0 [place] [address] 30397- 0107 Apr, Other iron deficiency anemia D50.8 [place] [id number] [place] [address] 45673- 2796 Apr, Anxiety F41.9 [place] [id number] [place] [address] 06973- 2201 Apr, [place] [address] 26736- 7150 Apr, Pancreatic cyst K86.2 ; Other iron deficiency anemia D50.8 ; Pulmonary emphysema, unspecified emphysema type J43.9 ; Coarse tremors G25.2 and Claustrophobia F40.240 [address] [address] [place] [address] 3941 Apr, Anxiety F41.9 [place] [id number] [place] [address] 13629- 9938 Mar, [place] [id number] [place] [address] 88390- 5167 Mar, Anxiety F41.9 [place] [address] 67092- 7381 Feb, Anxiety F41.9 [place] [address] 80823- 7969 Jan, [place] [address] 81865- 3466 Jan, [place] [id number] [place] [address] 31270- 9147 Jan, Anxiety F41.9 [place] [id number] [place] [address] 15997- 4692 Jan, Pulmonary emphysema, unspecified emphysema type J43.9 ; Encounter for immunization Z23 ; Other iron deficiency anemia D50.8 ; Anxiety F41.9 ; Diarrhea, unspecified type R19.7 and Memory loss R41.3 [place] [id number] [place] [address] 13958- 7067 Dec, Anxiety F41.9 [place] [id number] [place] [address] 11352- 3332 Dec, Irritable bowel syndrome with diarrhea K58.0 [place] [id number] [place] [address] 42413- 6788 Dec, Diarrhea, unspecified type R19.7 [place] [id number] [place] [address] 66488- 6234 Nov, Acute non-recurrent maxillary sinusitis J01.00 ; Pulmonary emphysema, unspecified emphysema type J43.9 ; Diarrhea, unspecified type R19.7 and Other iron deficiency anemia D50.8 [facility] [id number] [place] [address] 60646- 3889 Nov, [facility] [id number] [place] [address] 64592 -1941 Nov, Sore throat J02.9 and Strep pharyngitis J02.0 [place] [address] 76937- 5188 Nov, Other iron deficiency anemia D50.8 [place] [address] 60298- 0447 Nov, Anxiety F41.9 and Low hemoglobin D64.9 [place] [address] 91077- 7033 Oct, Anxiety F41.9 [place] [address] 52585- 4302 16 Sep, 2016 Anxiety F41.9 [place] [address] 00796- 8818 13 Sep, 2016 Left upper quadrant pain R10.12 [place] [address] 95664- 5094 07 Sep, 2016 Other iron deficiency anemia D50.8 and Left upper quadrant pain R10.12 [place] [id number] [place] [address] 02321- 0799 August, Anxiety F41.9 [place] [id number] [place] [address] 49323- 0855 August, Other iron deficiency anemia D50.8 and Left upper quadrant pain R10.12 [place] [id number] [place] [address] 06366- 3240 Jul, Other iron deficiency anemia D50.8 ; Acute gastric ulcer with hemorrhage K25.0 and Anxiety F41.9 [place] [id number] [place] [address] 53840- 1436 Jul, Other iron deficiency anemia D50.8 ; Other fatigue R53.83 ; Nicotine abuse Z72.0 ; Anxiety F41.9 and Pulmonary emphysema, unspecified emphysema type J43.9 [facility] [address] [place] [address] 01217- 4210 31 Jun, 2016 Other iron deficiency anemia D50.8 and Hematochezia K92.1 [facility] [id number] [place] [address] 10173- 1411 Jun, Other fatigue R53.83 and Other iron deficiency anemia D50.8 [place] [id number] [place] [address] 64606- 0623 Jun, Other fatigue R53.83 [place] [id number] [place] [address] 73571- 9381 Jun, Other iron deficiency anemia D50.8 ; Nicotine abuse Z72.0 ; Anxiety F41.9 and Pulmonary emphysema, unspecified emphysema type J43.9 [place] [id number] [place] [address] 25045- 5928 Jun, Low hemoglobin D64.9 [place] [id number] [place] [address] 47313- 8178 16 Jun, 2016 Low hemoglobin D64.9 [place] [id number] [place] [address] 49007- 5250 Jun, Anxiety F41.9 ; Nicotine abuse Z72.0 and Reactive depression F32.9 [place] [id number] [place] [address] 12925- 4749 Jun, Anxiety F41.9 [place] [id number] [place] [address] 55659- 8213 May, Anxiety F41.9 ; Nicotine abuse Z72.0 and Reactive depression F32.9 [place] [id number] [place] [address] 24500- 2520 May, Anxiety F41.9 [place] [id number] [place] [address] 13801- 2897 May, Anxiety F41.9 ; Nicotine abuse Z72.0 and Reactive depression F32.9 [place] [id number] [place] [address] 34123- 8810 May, [place] [address] 06866- 8705 May, [place] [address] 91011- 4715 May, Anxiety F41.9 [place] [address] 97072- 7845 May, Other emphysema J43.8 ; Cramping of hands R25.2 ; Irritable bowel syndrome with diarrhea K58.0 ; Breast cancer screening Z12.39 ; Candidal stomatitis B37.0 and Candidal esophagitis B37.81 [place] [id number] [place] [address] 58645- 2382 Apr, Anxiety F41.9 [place] [address] 37057- 8872 Mar, Anxiety F41.9 [place] [id number] [place] [address] 01785- 6877 Feb, Anxiety F41.9 [place] [id number] [place] [address] 91536- 9328 Jan, Anxiety F41.9 [place] [id number] [place] [address] 68030- 4106 Jan, Anxiety F41.9 [place] [id number] [place] [address] 49707- 2407 Jan, Anxiety F41.9 [place] [id number] [place] [address] 97813- 8730 Jan, Anxiety F41.9 ; Nicotine abuse Z72.0 ; Pulmonary emphysema, unspecified emphysema type J43.9 ; Memory loss R41.3 and Abdominal pain, unspecified location R10.9 [facility] [id number] [place] [address] 00578- 7134 Jan, [facility] [id number] [place] [address] 97716- 1424 Dec, Anxiety F41.9 [facility] [id number] [place] [address] 24333 -6338 Dec, Right arm pain M79.601 [facility] [id number] [place] [address] 30656- 7674 Nov, Anxiety F41.9 [facility] [id number] [place] [address] 01250- 2710 Oct, Anxiety F41.9 [facility] [id number] [place] [address] 27560- 3327 Oct, [facility] [id number] [place] [address] 57627- 1621 Sep, Anxiety F41.9 [facility] [id number] [place] [address] 28388- 3074 Sep, Left lower quadrant pain R10.32 ; Memory loss R41.3 and Basal cell carcinoma of skin, unspecified C44.91 [facility] [id number] [place] [address] 91156- 4438 Sep, Anxiety F41.9 [facility] [id number] [place] [address] 74063- 0712 August, Anxiety F41.9 [facility] [id number] [place] [address] 97300- 0446 August, Left lower quadrant pain R10.32 ; Memory loss R41.3 ; Pulmonary emphysema, unspecified emphysema type J43.9 and Depression, unspecified depression type F32.9 [address] [address]- 3710 August, [facility] [address] [place] [address] 89578- 0614 Jul, [facility] [address] [address]- 1886 Jun, [facility] [id number] [place] [address] 27866- 6550 May, [facility] [id number] [place] [address] 21271- 7608 Apr, [facility] [id number] [place] [address] 97540- 9656 Apr, Chronic obstructive pulmonary disease with acute exacerbation J44.1 ; Anxiety F41.9 and Nicotine abuse Z72.0 [facility] [id number] [place] [address] 12044- 5382 Apr, [facility] [id number] [place] [address] 76681- 0538 Mar, Anxiety disorder, unspecified F41.9 [facility] [id number] [place] [address] 33911- 7477 Mar, [facility] [address] [address]- 2921 Feb, [facility] [address] [place] [address] 52453- 1785 Nov, [facility] [address] [address]- 2756 Nov, [facility] [id number] [place] [address] 66011- 7312 Nov, Basal cell carcinoma 173.91 and Astigmatism with presbyopia 367.20 [facility] [address] [address]- 9009 Oct, [facility] [id number] [address]- 2160 Oct, Lipoma 214.9 [facility] [id number] [place] [address] 79926- 3098 Sep, Ganglion cyst 727.43 ; Chronic airway obstruction, not elsewhere classified 496 ; Hypertension 401.9 ; CAD (coronary artery disease) 414.00 and Dysthymia 300.4 [facility] [id number] [place] [address] 78854- 2342 Jul, [facility] [id number] [place] [address] 38659- 9113 Jul, [facility] [id number] [place] [address] 81591- 5923 Jun, [facility] [id number] [place] [address] 22347- 6596 Jun, [facility] [id number] [place] [address] 15709- 5354 Jun, [facility] [address] [place] [address] 13023- 5474 Jun, [facility] [address] [place] [address] 08846- 6598 May, [facility] [address] [address]- 3097 May, [facility] [address] [address]- 1581 Mar, [facility] [address] [address]- 3881 Mar, [facility] [id number] [place] [address] 70737- 5360 Mar, [facility] [address] [address]- 1405 Mar, [facility] [id number] [place] [address]- 7691 13 Feb, 2014 [facility] [place] [facility] [address] [id number] [place] [address]- 3517 Feb, [facility] [place] [facility] [address] [id number] [place] [address]- 3027 Feb, [facility] [place] [facility] [address] [id number] [place] [address]- 4135 Feb, [facility] [place] [facility] [address] [id number] [place] [address]- 8347 Feb, [facility] [place] [facility] [address] [id number] [place] [address]- 1496 Feb, [facility] [place] [facility] [address] [id number] [place] [address]- 4464 Feb, [facility] [place] [facility] [address] [id number] [place] [address]- 9171 Feb, [facility] [place] [facility] [address] [id number] [place] [address]- 2116 Feb, [facility] [place] [facility] [address] [id number] [place] [address]- 4206 Feb, [facility] [place] [facility] [address] [id number] [place] [address]- 7521 Dec, [facility] [place] [facility] [address] [id number] [place] [address]- 3956 Dec, [facility] [place] [facility] [address] [id number] [place] [address]- 9759 Nov, [facility] [place] [facility] [address] [id number] [place] [address]- 0186 Oct, [facility] [place] [facility] [address] [id number] [place] [address]- 4836 Oct, [facility] [place] [facility] [address] [id number] [place] [address]- 2590 August, [facility] [place] [facility] [address] [id number] [place] [address]- 5826 August, [facility] [place] [facility] [address] [id number] [place] [address]- 7562 August, [facility] [place] [facility] [address] [id number] [place] [address]- 0935 August, [facility] [place] [facility] [address] [id number] [place] [address]- 2491 Jul, [facility] [place] [facility] [address] [id number] [place] [address]- 9833 Jul, [facility] [place] [facility] [address] [id number] [place] [address]- 8920 Jun, [facility] [place] [facility] [address] [id number] [place] [address]- 4825 Jun, [facility] [place] [facility] [address] [id number] [place] [address]- 1309 Jun, [facility] [place] [facility] [address] [id number] [place] [address]- 8722 Jun, [facility] [place] [facility] [address] [id number] [place] [address]- 6637 Jun, [facility] [place] [facility] [address] [id number] [place] [address]- 3696 Jun, [facility] [place] [facility] [address] [id number] [place] [address]- 6870 Jun, [facility] [place] [facility] [address] [id number] [place] [address]- 6124 Jun, [facility] [place] [facility] [address] [id number] [place] [address]- 0302 Jun, [facility] [place] [facility] [address] [id number] [place] [address]- 5979 Jun, [facility] [place] [facility] [address] [id number] [place] [address]- 1995 10 Jun, 2013 [facility] [place] [facility] [address] [id number] [place] [address]- 5355 Jun, [facility] [place] [facility] [address] [id number] [place] [address]- 1337 Jun, [facility] [place] [facility] [address] [id number] [place] [address]- 3736 Jun, [facility] [place] [facility] [address] [id number] [place] [address]- 1466 Jun, [facility] [place] [facility] [address] [id number] [place] [address]- 7505 Jun, [facility] [place] [facility] [address] [id number] [place] [address]- 6117 Jun, [facility] [place] [facility] [address] [id number] [place] [address]- 1906 Jun, [facility] [place] [facility] [address] [id number] [place] [address]- 8446 Jun, [facility] [place] [facility] [address] [id number] [place] [address]- 6188 07 May, 2013 [facility] [place] [facility] [address] [id number] [place] [address]- 2180 May, [facility] [place] [facility] [address] [id number] [place] [address]- 5496 May, [facility] [place] [facility] [address] [id number] [place] [address]- 3484 May, [facility] [place] [facility] [address] [id number] [place] 3216 Apr, [facility] [place] [facility] [address] [id number] [place] [address]- 0268 Apr, [facility] [place] [facility] [address] [facility] [id number] [place] [address]- 9687 Mar, [facility] [place] [facility] [address] [id number] [place] [address]- 6011 Mar, 2012 [facility] [place] [facility] [address] [id number] [place] [address]- 3096 Mar, [facility] [place] [facility] [address] [id number] [place] [address]- 2546 Mar, [facility] [place] [facility] [address] [id number] [place] [address]- 6286 Mar, [facility] [place] [facility] [address] [id number] [place] [address]- 3969 Mar, [facility] [place] [facility] [address] [id number] [place] [address]- 3383 Mar, [facility] [place] [facility] [address] [id number] [place] [address]- 3238 Mar, [facility] [place] [facility] [address] [id number] [place] [address]- 0813 Mar, [facility] [place] [facility] [address] [id number] [place] [address]- 9032 Mar, [facility] [place] [facility] [address] [id number] [place] [address]- 7020 Mar, [facility] [place] [facility] [address] [facility] [id number] [place] [address]- 5986 Feb, [facility] [place] [facility] [address] [id number] [place] [address]- 1781 Feb, [facility] [place] [facility] [address] [id number] [place] [address]- 1178 Jan, [facility] [place] [facility] [address] [id number] [place] [address]- 8416 Jan, [facility] [place] [facility] [address] [id number] [place] [address]- 2546 Jan, [facility] [place] [facility] [address] [id number] [place] [address]- 1593 Nov, [facility] [place] [facility] [address] [id number] [place] [address]- 1113 Oct, [facility] [place] [facility] [address] [id number] [place] [address]- 0041 Oct, [facility] [place] [facility] [address] [id number] [place] [address]- 4442 Oct, [facility] [place] [facility] [address] [id number] [place] [address]- 0521 Oct, [facility] [place] [facility] [address] [id number] [place] [address]- 8698 Oct, [facility] [place] [facility] [address] [id number] [place] [address]- 4875 Oct, [facility] [place] [facility] [address] [id number] [place] [address] Oct, [facility] [place] [facility] [address] [id number] [place] [address] Oct, [facility] [place] [facility] [address] [id number] [place] [address] Sep, [facility] [place] [facility] [address] [id number] [place] [address] Sep, [facility] [place] [facility] [address] [id number] [place] [address] Sep, [facility] [place] [facility] [address] [id number] [place] [address] Sep, [facility] [place] [facility] [address] [id number] [place] [address] August, [facility] [place] [facility] [address] [id number] [place] [address] August, [facility] [place] [facility] [address] [id number] [place] [address] August, [facility] [place] [facility] [address] [id number] [place] [id number] August, [facility] [address] [id number] [place] [address] August, [facility] [place] [facility] [address] [id number] [place] [id number] August, [facility] [address] [id number] [place] [address] Jul, [facility] [place] [facility] [address] [id number] [place] [address] May, [facility] [address] [id number] [place] [address] Apr, [facility] [place] [facility] [address] [id number] [place] [address] Apr, [facility] [address] [id number] [place] [address] Apr, [facility] [address] [id number] [place] [address] Mar, [facility] [place] [facility] [address] [id number] [place] [address] Mar, [facility] [address] [facility] [id number] [place] [address] Mar, [facility] [place] [facility] [address] [id number] [place] [address] Mar, [facility] [place] [facility] [address] [id number] [place] [address] Jan, [facility] [place] [facility] [address] [id number] [place] [address] Nov, [facility] [place] [facility] [address] [id number] [place] [address] Sep, [facility] [place] [facility] [address] [id number] [place] [address] August, [facility] [address] [id number] [place] [address] August, [facility] [address] [id number] [place] [address] Jul, [facility] [address] [facility] [id number] [place] [address] Jul, [facility] [address] [id number] [place] [address] Jul, [facility] [address] [id number] [place] [address] Jul, [facility] [address] [id number] [place] [address] Jul, [facility] [address] [facility] [id number] [place] [address] Jun, [facility] [address] [facility] [id number] [address] Apr, [facility] [address] [facility] [id number] [place] [address] Feb, [facility] [address] [id number] [address] Nov, [facility] [id number] [place] [address] Oct, [facility] [facility] [address] [facility] [id number] [address] Feb, [facility] [address] [facility] [id number] [place] [address] August, [facility] [address] [facility] [id number] [place] [address] Jul, [facility] [address] [facility] [id number] [place] [address] Jun, 2008 IMMUNIZATIONS No Known Immunizations SOCIAL HISTORY Never Assessed REASON FOR VISIT Controlled Med Refill 12/27/2016 PLAN OF CARE VITAL SIGNS MEDICATIONS Medication Instructions Dosage Frequency Start Date End Date Duration Status Ativan 1 MG Orally 2 times a day 1 tablet as needed 12h Jun, 28 days Active RESULTS No Results PROCEDURES No Known procedures INSTRUCTIONS MEDICATIONS ADMINISTERED No Known Medications MEDICAL (GENERAL) HISTORY Type Description Date Medical [...]
--- OUTSIDE RECORDS SUMMARY | 2017-09-08 17:53 | XMS REPORT ---
Author Author CASEY SIMPSON [facility] Address [address] [place] [address] Care Team Providers Care Fine Arts Model Name Role Phone CASEY SIMPSON Unavailable PROBLEMS Type Condition ICD9-CM Code [id number] Code Onset Dates Condition Status SNOMED Code Problem Memory loss R41.3 Active 20754665 Problem Other emphysema J43.8 Active 51537629 Problem Irritable bowel syndrome with diarrhea K58.0 Active 397860856 Problem Chronic prescription benzodiazepine use Z79.899 Active 289681813 Problem Benign familial tremor G25.0 Active 799732020 Problem Other iron deficiency anemia D50.8 Active 18692575 Problem Reactive depression F32.9 Active 45571292 Problem Coarse tremors G25.2 Active 73316565 Problem Claustrophobia F40.240 Active 47103084 Problem Essential hypertension I10 Active 61686637 Problem Anxiety F41.9 Active 66521666 Problem Nicotine abuse Z72.0 Active 77695241 Problem Supplemental oxygen dependent Z99.81 Active 297820481863 Problem Chronic obstructive pulmonary disease with acute exacerbation J44.1 Active 947468620 Problem CAD (coronary artery disease) 414.00 Active 76242293 Problem Pulmonary emphysema, unspecified emphysema type J43.9 Active 67073449 ALLERGIES Substance Reaction Event Type Date Status Ultram Unknown Drug Allergy Sep, Active Sulfamethoxazole-Trimethoprim Unknown Drug Allergy Sep, Active Penicillin V Potassium Unknown Drug Allergy Sep, Active Imitrex Unknown Drug Allergy Sep, Active Effexor Xr 75 Mg Capsule,extended Release 24hr Unknown Non Drug Allergy Sep, Active Lipitor 20 Mg Tablet muscle aches Non Drug Allergy Sep, Active ENCOUNTERS Encounter Location Date Diagnosis [facility] [address] [facility] [id number] [address] Jun, [facility] [address] [facility] [id number] [place] [address] 52394- 6271 Jun, Anxiety F41.9 [facility] [address] [address]68- 2822 Jun, [facility] [address] [place] [id number] [place] [address] 25321- 3536 Jun, [facility] [address] [address]- 8034 Jun, [facility] [address] [address] -[address]28 Jun, Dysuria R30.0 and Acute cystitis with hematuria N30.01 [place] [address] 26814- 9520 May, Anxiety F41.9 and Chronic prescription benzodiazepine use Z79.899 [place] [address] 24091- 3424 May, Anxiety F41.9 and Chronic prescription benzodiazepine use Z79.899 [place] [address] [place] [id number] [place] [address] 54389- 9180 May, Benign familial tremor G25.0 [place] [address] 86193- 9088 Apr, Other iron deficiency anemia D50.8 [place] [address] [place] [id number] [place] [address] 09086- 4326 Apr, Anxiety F41.9 [place] [address] [place] [id number] [place] [address] 42857- 9225 Apr, [place] [address] 90876- 0463 Apr, Pancreatic cyst K86.2 ; Other iron deficiency anemia D50.8 ; Pulmonary emphysema, unspecified emphysema type J43.9 ; Coarse tremors G25.2 and Claustrophobia F40.240 [place] [address] [place] [address]- 2516 Apr, Anxiety F41.9 [place] [address] [place] [id number] [place] [address] 99406- 8499 Mar, [place] [address] [place] [id number] [place] [address] 01148- 8499 Mar, Anxiety F41.9 [place] [address] 29766- 6676 Feb, Anxiety F41.9 [place] [address] 34457- 7446 Jan, [place] [address] 53429- 8880 Jan, [place] [address] [place] [id number] [place] [address] 37909- 0100 Jan, Anxiety F41.9 [place] [address] [place] [id number] [place] [address] 08397- 1398 Jan, Pulmonary emphysema, unspecified emphysema type J43.9 ; Encounter for immunization Z23 ; Other iron deficiency anemia D50.8 ; Anxiety F41.9 ; Diarrhea, unspecified type R19.7 and Memory loss R41.3 [place] [address] [place] [id number] [place] [address] 65627- 1083 Dec, Anxiety F41.9 [place] [address] [place] [id number] [place] [address] 16507- 0675 Dec, Irritable bowel syndrome with diarrhea K58.0 [place] [address] [place] [id number] [place] [address] 26729- 5177 Dec, Diarrhea, unspecified type R19.7 [place] [address] [place] [id number] [place] [address] 66572- 8609 Nov, Acute non-recurrent maxillary sinusitis J01.00 ; Pulmonary emphysema, unspecified emphysema type J43.9 ; Diarrhea, unspecified type R19.7 and Other iron deficiency anemia D50.8 [facility] [id number] [place] [address] 25881- 8533 Nov, [facility] [id number] [place] [address] 29186 -2341 Nov, Sore throat J02.9 and Strep pharyngitis J02.0 [place] [address] 58863- 7499 Nov, Other iron deficiency anemia D50.8 [place] [address] 52029- 0267 Nov, Anxiety F41.9 and Low hemoglobin D64.9 [place] [address] 00013- 2697 Oct, Anxiety F41.9 [place] [address] 41598- 7978 16 Sep, 2016 Anxiety F41.9 [place] [address] 26658- 8505 13 Sep, 2016 Left upper quadrant pain R10.12 [place] [address] 62251- 2568 07 Sep, 2016 Other iron deficiency anemia D50.8 and Left upper quadrant pain R10.12 [place] [address] [place] [id number] [place] [address] 79123- 1070 August, Anxiety F41.9 [place] [address] [place] [id number] [place] [address] 98190- 7344 August, Other iron deficiency anemia D50.8 and Left upper quadrant pain R10.12 [place] [address] [place] [id number] [place] [address] 00615- 3783 Jul, Other iron deficiency anemia D50.8 ; Acute gastric ulcer with hemorrhage K25.0 and Anxiety F41.9 [place] [address] [place] [id number] [place] [address] 69306- 0817 Jul, Other iron deficiency anemia D50.8 ; Other fatigue R53.83 ; Nicotine abuse Z72.0 ; Anxiety F41.9 and Pulmonary emphysema, unspecified emphysema type J43.9 [facility] [id number] [place] [address] 67442- 5949 31 Jun, 2016 Other iron deficiency anemia D50.8 and Hematochezia K92.1 [facility] [address] [place] [id number] [place] [address] 80352- 9433 Jun, Other fatigue R53.83 and Other iron deficiency anemia D50.8 [place] [address] [place] [id number] [place] [address] 23372- 9659 Jun, Other fatigue R53.83 [place] [address] [place] [id number] [place] [address] 78051- 9274 Jun, Other iron deficiency anemia D50.8 ; Nicotine abuse Z72.0 ; Anxiety F41.9 and Pulmonary emphysema, unspecified emphysema type J43.9 [place] [address] [place] [id number] [place] [address] 41609- 3374 Jun, Low hemoglobin D64.9 [place] [address] [place] [id number] [place] [address] 53399- 8906 16 Jun, 2016 Low hemoglobin D64.9 [place] [address] [place] [id number] [place] [address] 36438- 2149 Jun, Anxiety F41.9 ; Nicotine abuse Z72.0 and Reactive depression F32.9 [place] [address] [place] [id number] [place] [address] 45049- 5394 Jun, Anxiety F41.9 [place] [address] [place] [id number] [place] [address] 81760- 4317 May, Anxiety F41.9 ; Nicotine abuse Z72.0 and Reactive depression F32.9 [place] [address] [place] [id number] [place] [address] 74575- 4165 May, Anxiety F41.9 [place] [address] [place] [id number] [place] [address] 89205- 2270 May, Anxiety F41.9 ; Nicotine abuse Z72.0 and Reactive depression F32.9 [place] [address] [place] [id number] [place] [address] 33907- 0167 May, [place] [address] 43615- 1076 May, [place] [address] 32536- 5968 May, Anxiety F41.9 [place] [address] 55228- 9643 May, Other emphysema J43.8 ; Cramping of hands R25.2 ; Irritable bowel syndrome with diarrhea K58.0 ; Breast cancer screening Z12.39 ; Candidal stomatitis B37.0 and Candidal esophagitis B37.81 [place] [address] [place] [id number] [place] [address] 25818- 1692 Apr, Anxiety F41.9 [place] [address] 78438- 0612 Mar, Anxiety F41.9 [place] [address] [place] [id number] [place] [address] 24005- 7880 Feb, Anxiety F41.9 [place] [address] [place] [id number] [place] [address] 26911- 9437 Jan, Anxiety F41.9 [place] [address] [id number] [place] [address] 11666- 1245 Jan, Anxiety F41.9 [place] [address] [place] [id number] [place] [address] 33673- 2418 Jan, Anxiety F41.9 [place] [address] [place] [id number] [place] [address] 47272- 3379 Jan, Anxiety F41.9 ; Nicotine abuse Z72.0 ; Pulmonary emphysema, unspecified emphysema type J43.9 ; Memory loss R41.3 and Abdominal pain, unspecified location R10.9 [facility] [address] [id number] [place] [address] 70784- 8463 Jan, [facility] [address] [id number] [place] [address] 03143- 7919 Dec, Anxiety F41.9 [facility] [id number] [place] [address] 58893 -5629 Dec, Right arm pain M79.601 [facility] [address] [place] [id number] [place] [address] 75130- 8526 Nov, Anxiety F41.9 [facility] [address] [id number] [place] [address] 02832- 1035 Oct, Anxiety F41.9 [facility] [address] [id number] [place] [address] 98025- 2732 Oct, [facility] [id number] [place] [address] 86384- 6361 Sep, Anxiety F41.9 [facility] [address] [id number] [place] [address] 08244- 3987 Sep, Left lower quadrant pain R10.32 ; Memory loss R41.3 and Basal cell carcinoma of skin, unspecified C44.91 [facility] [address] [id number] [place] [address] 80117- 2278 Sep, Anxiety F41.9 [facility] [address] [id number] [place] [address] 99103- 9970 August, Anxiety F41.9 [facility] [address] [id number] [place] [address] 51001- 5531 August, Left lower quadrant pain R10.32 ; Memory loss R41.3 ; Pulmonary emphysema, unspecified emphysema type J43.9 and Depression, unspecified depression type F32.9 [place] [address] [address]- 4200 August, [facility] [id number] [place] [address] 59483- 3341 Jul, [facility] [address] [address]- 5402 Jun, [facility] [address] [id number] [place] [address] 37468- 7878 May, [facility] [address] [id number] [place] [address] 17419- 9155 Apr, [facility] [id number] [place] [address] 08336- 7741 Apr, Chronic obstructive pulmonary disease with acute exacerbation J44.1 ; Anxiety F41.9 and Nicotine abuse Z72.0 [facility] [id number] [place] [address] 53369- 7867 Apr, [facility] [id number] [place] [address] 67109- 3392 Mar, Anxiety disorder, unspecified F41.9 [facility] [id number] [place] [address] 98306- 2134 Mar, [facility] [address] [address]- 1091 Feb, [facility] [address] [place] [address] 78014- 4143 Nov, [facility] [address] [address]- 7658 Nov, [facility] [address] [id number] [place] [address] 93791- 5226 Nov, Basal cell carcinoma 173.91 and Astigmatism with presbyopia 367.20 [facility] [address] [address]- 7842 Oct, [facility] [id number] [address]- 3230 Oct, Lipoma 214.9 [facility] [address] [id number] [place] [address] 82636- 9592 Sep, Ganglion cyst 727.43 ; Chronic airway obstruction, not elsewhere classified 496 ; Hypertension 401.9 ; CAD (coronary artery disease) 414.00 and Dysthymia 300.4 [facility] [address] [id number] [place] [address] 42059- 8132 Jul, [facility] [id number] [place] [address] 56794- 3705 Jul, [facility] [id number] [place] [address] 91549- 4350 Jun, [facility] [id number] [place] [address] 24772- 5398 Jun, [facility] [id number] [place] [address] 34212- 9397 Jun, [facility] [id number] [place] [address] 91303- 8599 Jun, [facility] [id number] [place] [address] 16937- 3256 May, [facility] [address] [address]- 3213 May, [facility] [address] [address]- 9526 Mar, [facility] [address] [address]- 8465 Mar, [facility] [id number] [place] [address] 98193- 3243 Mar, [facility] [address] [address]- 7538 Mar, [facility] [address] [id number] [address]- 2492 13 Feb, 2014 [facility] [place] [facility] [address] [id number] [place] [address]- 8556 Feb, [facility] [place] [facility] [address] [id number] [place] [address]- 3128 Feb, [facility] [place] [facility] [address] [id number] [place] [address]- 2731 Feb, [facility] [place] [facility] [address] [id number] [place] [address]- 2227 Feb, [facility] [place] [facility] [address] [id number] [place] [address]- 8452 Feb, [facility] [place] [facility] [address] [id number] [place] [address]- 8999 Feb, [facility] [place] [facility] [address] [id number] [place] [address]- 1225 Feb, [facility] [place] [facility] [address] [id number] [place] [address]- 5135 Feb, [facility] [place] [facility] [address] [id number] [place] [address]- 9553 Feb, [facility] [place] [facility] [address] [id number] [place] [address]- 9163 Dec, [facility] [place] [facility] [address] [id number] [place] [address]- 7004 Dec, [facility] [place] [facility] [address] [id number] [place] [address]- 3146 Nov, [facility] [place] [facility] [address] [id number] [place] [address]- 9148 Oct, [facility] [place] [facility] [address] [id number] [place] [address]- 1507 Oct, [facility] [place] [facility] [address] [id number] [place] [address]- 7080 August, [facility] [place] [facility] [address] [id number] [place] [address]- 2471 August, [facility] [place] [facility] [address] [id number] [place] [address]- 3671 August, [facility] [place] [facility] [address] [id number] [place] [address]- 4504 August, [facility] [place] [facility] [address] [id number] [place] [address]- 7098 Jul, [facility] [place] [facility] [address] [id number] [place] [address]- 3270 Jul, [facility] [place] [facility] [address] [id number] [place] [address]- 1864 Jun, [facility] [place] [facility] [address] [id number] [place] [address]- 5886 Jun, [facility] [place] [facility] [address] [id number] [place] [address]- 8718 Jun, [facility] [place] [facility] [address] [id number] [place] [address]- 5839 Jun, [facility] [place] [facility] [address] [id number] [place] [address]- 5307 Jun, [facility] [place] [facility] [address] [id number] [place] [address]- 0225 Jun, [facility] [place] [facility] [address] [id number] [place] [address]- 8006 Jun, [facility] [place] [facility] [address] [id number] [place] [address]- 7964 Jun, [facility] [place] [facility] [address] [id number] [place] [address]- 4286 Jun, [facility] [place] [facility] [address] [id number] [place] [address]- 0413 Jun, [facility] [place] [facility] [address] [id number] [place] [address]- 8639 10 Jun, 2013 [facility] [place] [facility] [address] [id number] [place] [address]- 3459 Jun, [facility] [place] [facility] [address] [id number] [place] [address]- 3009 Jun, [facility] [place] [facility] [address] [id number] [place] [address]- 8015 Jun, [facility] [place] [facility] [address] [id number] [place] [address]- 6593 Jun, [facility] [place] [facility] [address] [id number] [place] [address]- 4403 Jun, [facility] [place] [facility] [address] [id number] [place] [address]- 0959 Jun, [facility] [place] [facility] [address] [id number] [place] [address]- 9994 Jun, [facility] [place] [facility] [address] [id number] [place] [address]- 0301 Jun, [facility] [place] [facility] [address] [id number] [place] [address]- 4575 07 May, 2013 [facility] [place] [facility] [address] [id number] [place] [address]- 0404 May, [facility] [place] [facility] [address] [id number] [place] [address]- 2543 May, [facility] [place] [facility] [address] [id number] [place] [address]- 2793 May, [facility] [place] [facility] [address] [id number] [place] 2549 Apr, [facility] [place] [facility] [address] [id number] [place] [address]- 0432 Apr, [facility] [place] [facility] [address] [facility] [id number] [place] [address]- 1375 Mar, [facility] [place] [facility] [address] [id number] [place] [address]- 1489 Mar, 2012 [facility] [place] [facility] [address] [id number] [place] [address]- 7736 Mar, [facility] [place] [facility] [address] [id number] [place] [address]- 2546 Mar, [facility] [place] [facility] [address] [id number] [place] [address]- 3636 Mar, [facility] [place] [facility] [address] [id number] [place] [address]- 1985 Mar, [facility] [place] [facility] [address] [id number] [place] [address]- 2811 Mar, [facility] [place] [facility] [address] [id number] [place] [address]- 8002 Mar, [facility] [place] [facility] [address] [id number] [place] [address]- 5607 Mar, [facility] [place] [facility] [address] [id number] [place] [address]- 5080 Mar, [facility] [place] [facility] [address] [id number] [place] [address]- 2814 Mar, [facility] [place] [facility] [address] [facility] [id number] [place] [address]- 8853 Feb, [facility] [place] [facility] [address] [id number] [place] [address]- 1629 Feb, [facility] [place] [facility] [address] [id number] [place] [address]- 9436 Jan, [facility] [place] [facility] [address] [id number] [place] [address]- 9706 Jan, [facility] [place] [facility] [address] [id number] [place] [address]- 2546 Jan, [facility] [place] [facility] [address] [id number] [place] [address]- 4220 Nov, [facility] [place] [facility] [address] [id number] [place] [address]- 6074 Oct, [facility] [place] [facility] [address] [id number] [place] [address] Oct, [facility] [place] [facility] [address] [id number] [place] [address] Oct, [facility] [place] [facility] [address] [id number] [place] [address] Oct, [facility] [place] [facility] [address] [id number] [place] [address] Oct, [facility] [place] [facility] [address] [id number] [place] [address] Oct, [facility] [place] [facility] [address] [id number] [place] [address] Oct, [facility] [place] [facility] [address] [id number] [place] [address] Oct, [facility] [place] [facility] [address] [id number] [place] [address] Sep, [facility] [place] [facility] [address] [id number] [place] [address] Sep, [facility] [place] [facility] [address] [id number] [place] [address] Sep, [facility] [place] [facility] [address] [id number] [place] [address] Sep, [facility] [place] [facility] [address] [id number] [place] [address] August, [facility] [place] [facility] [address] [id number] [place] [address] August, [facility] [place] [facility] [address] [id number] [place] [address] August, [facility] [place] [facility] [address] [id number] [place] [address] August, [facility] [address] [id number] [place] [address] August, [facility] [place] [facility] [address] [id number] [place] [address] August, [facility] [address] [id number] [place] [address] Jul, [facility] [place] [facility] [address] [id number] [place] [address] May, [facility] [address] [id number] [place] [address] Apr, [facility] [place] [facility] [address] [id number] [place] [address] Apr, [facility] [address] [id number] [place] [address] Apr, [facility] [address] [id number] [place] [address] Mar, [facility] [place] [facility] [address] [id number] [place] [address] Mar, [facility] [address] [facility] [id number] [place] [address] Mar, [facility] [place] [facility] [address] [id number] [place] [address] Mar, [facility] [place] [facility] [address] [id number] [place] [address] Jan, [facility] [place] [facility] [address] [id number] [place] [address] Nov, [facility] [place] [facility] [address] [id number] [place] [address] Sep, [facility] [place] [facility] [address] [id number] [place] [address] August, [facility] [address] [id number] [place] [address] August, [facility] [address] [id number] [place] [address] Jul, [facility] [address] [id number] [place] [address] Jul, [facility] [address] [id number] [place] [address] Jul, [facility] [address] [id number] [place] [address] Jul, [facility] [address] [id number] [place] [address] Jul, [facility] [address] [facility] [id number] [place] [address] Jun, [facility] [address] [facility] [id number] [place] [address] Apr, [facility] [address] [facility] [id number] [place] [address] Feb, [facility] [address] [facility] [id number] [place] [address] Nov, [facility] [address] [facility] [id number] [place] [address] Oct, [facility] [address] [facility] [id number] [place] [address] Feb, [facility] [address] [facility] [id number] [place] [address] August, [facility] [address] [facility] [id number] [place] [address] 20 Jul, 2008 [facility] [address] [facility] [id number] [place] [address] 10 Jun, 2008 IMMUNIZATIONS No Known Immunizations SOCIAL HISTORY Never Assessed REASON FOR VISIT BLOOD COUNT/ LAB RESULT F/U - Had a scope and an MRI and wants to discuss results. Tomorrow sees her lung doctor. - Lucy REYNOLDS PLAN OF CARE Activity Details Follow Up 3 Months Reason:anemia VITAL SIGNS Height 63 in 2016 Weight 136.8 lbs 2016 Temperature 98.0 degrees Fahrenheit 2016 Heart Rate 83 bpm 2016 Respiratory Rate 28 2016 Oximetry 97 % 2016 BMI 24.23 kg/m2 2016 Blood pressure systolic 126 mmHg 2016 Blood pressure diastolic 74 mmHg 2016 MEDICATIONS Medication Instructions Dosage Frequency Start Date End Date Duration Status Folic Acid 0.8 mg Orally Once a day 1/2 tablet 24h Active Magnesium 250 MG Orally twice a day 1 tablet with a meal 12h Active Ativan 1 MG Orally 2 times a day 1 tablet as needed 12h Jun, 28 days Active Proventil 17gm by inhalation route 4 times a day 2 puffs 6h Active Clonidine HCl 0.2 MG Orally Twice a day 1 tablet 12h 30 days Active Nitroglycerin 0.4 MG Active Isosorbide Mononitrate ER 30 MG TAKE ONE TABLET BY MOUTH IN THE MORNING 90 Active Ipratropium-Albuterol 0.5-2.5 (3) MG/3ML Inhalation Four times a day 3 ml 6h Active Aricept 10 MG Orally Once a day 1 tablet 24h 90 Active Aspirin 81 mg take 1 tablet (81 mg) by oral route once daily Sep, Active Oxygen Active Symbicort 160-4.5 mcg/actuation inhale 2 puffs by inhalation route 2 times per day in the morning and evening Jul, Active Pristiq 100 MG TAKE ONE TABLET BY MOUTH DAILY 90 Active PredniSONE (Yuriy) Active Metoprolol Tartrate 25 mg take 1 tablet (25 mg) by oral route 2 times per day Sep, Active Pantoprazole Sodium 40 MG Orally Once a day 1 tablet 24h Active Vitamin D3 1,000 unit take 1 Tablet by Oral route 1 time per day take one tablet orally daily Jun, Active Mucinex 600 MG Orally every 12 hrs 1 tablet as needed 12h Active Vitamin C 500 MG Active Albuterol Sulfate 1.25 mg/3 mL inhale 3 milliliters via nebulizer by Inhalation route 4 times per day PRN as needed Dec, Active Cetirizine HCl 10 MG Orally Once a day 1 tablet 24h Active Ferrous Sulfate 325 (65 Fe) MG Orally Once a day for 10 days then bid 1 tablet Jun, 30 day(s) Active Singulair 10 MG Orally Once a day 1 tablet in the evening 24h Active Plavix 75 mg take 1 tablet (75 mg) by oral route once daily Sep, Active RESULTS Name Result Date Reference Range CBC 2016 WBC 12.1 3.4-10.8 RBC 4.11 3.77-5.28 Hemoglobin 11.8 11.1-15.9 Hematocrit 37.8 34.0-46.6 MCV 92 79-97 MCH 28.7 26.6-33.0 MCHC 31.2 31.5-35.7 RDW 15.2 12.3-15.4 Platelets 385 150-379 Neutrophils 82 Lymphs 7 Monocytes 7 Eos 2 Basos 1 Immature Cells Neutrophils (Absolute) 9.9 1.4-7.0 Lymphs (Absolute) 0.9 0.7-3.1 Monocytes(Absolute) 0.9 0.1-0.9 Eos (Absolute) 0.3 0.0-0.4 Baso (Absolute) 0.1 0.0-0.2 Immature Granulocytes 1 Immature Grans (Abs) 0.1 0.0-0.1 NRBC Hematology Comments: PROCEDURES Procedure Date Ordered Result Body Site MEASURE BLOOD OXYGEN LEVEL 2016 [facility] VISIT ESTABLISHED PATIENT 2016 TIKA, ROUTINE* 2016 INSTRUCTIONS MEDICATIONS ADMINISTERED No Known Medications MEDICAL [...]
--- OUTSIDE RECORDS SUMMARY | 2017-09-08 17:54 | XMS REPORT ---
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 Name Role Phone CASEY SIMPSON Unavailable PROBLEMS Type Condition ICD9-CM Code [id number]-NW Code Onset Dates Condition Status SNOMED Code Problem Memory loss R41.3 Active 04558325 Problem Other emphysema J43.8 Active 49487499 Problem Irritable bowel syndrome with diarrhea K58.0 Active 283358277 Problem Chronic prescription benzodiazepine use Z79.899 Active 806509115 Problem Benign familial tremor G25.0 Active 020562843 Problem Other iron deficiency anemia D50.8 Active 01043894 Problem Reactive depression F32.9 Active 22154613 Problem Coarse tremors G25.2 Active 08346015 Problem Claustrophobia F40.240 Active 12179356 Problem Essential hypertension I10 Active 30655431 Problem Anxiety F41.9 Active 73197984 Problem Nicotine abuse Z72.0 Active 72027086 Problem Supplemental oxygen dependent Z99.81 Active 530101591163 Problem Chronic obstructive pulmonary disease with acute exacerbation J44.1 Active 982665790 Problem CAD (coronary artery disease) 414.00 Active 13494482 Problem Pulmonary emphysema, unspecified emphysema type J43.9 Active 37769089 ALLERGIES No Information ENCOUNTERS Encounter Location Date Diagnosis [facility] [address] [address] Jun, Pulmonary emphysema, unspecified emphysema type J43.9 and Anxiety F41.9 [facility] [id number] [place] [address] 25442- 7406 Jun, Anxiety F41.9 [facility] [address] [address] 3244 Jun, [facility] [id number] [place] [address] 67149- 1985 Jun, [facility] [id number] [place] [address] 95587- 1591 Jun, [facility] [address] [address] Jun, Dysuria R30.0 and Acute cystitis with hematuria N30.01 [facility] [address] 02245- 0225 May, Anxiety F41.9 and Chronic prescription benzodiazepine use Z79.899 [facility] [address] 72178- 0066 May, Anxiety F41.9 and Chronic prescription benzodiazepine use Z79.899 [facility] [address] 83111- 9081 May, Benign familial tremor G25.0 [facility] [address] 22077- 7897 Apr, Other iron deficiency anemia D50.8 [facility] [address] 34673- 8300 Apr, Anxiety F41.9 [facility] [address] 87375- 7447 Apr, [facility] [id number] [place] [address] 86442- 7677 Apr, Pancreatic cyst K86.2 ; Other iron deficiency anemia D50.8 ; Pulmonary emphysema, unspecified emphysema type J43.9 ; Coarse tremors G25.2 and Claustrophobia F40.240 [place] [address] 10455- 5145 Apr, Anxiety F41.9 [facility] [address] [address]26- 1798 Mar, [place] [address] [place] [address] 3310 Mar, Anxiety F41.9 [place] [address] 41790- 8448 Feb, Anxiety F41.9 [place] [id number] [place] [address] 24781- 3376 Jan, [place] [address] 87730- 0107 Jan, [place] [address] 74615- 1512 Jan, Anxiety F41.9 [place] [address] 36845- 4054 Jan, Pulmonary emphysema, unspecified emphysema type J43.9 ; Encounter for immunization Z23 ; Other iron deficiency anemia D50.8 ; Anxiety F41.9 ; Diarrhea, unspecified type R19.7 and Memory loss R41.3 [place] [id number] [place] [address] 45198- 0208 Dec, Anxiety F41.9 [place] [address] 68308- 8065 Dec, Irritable bowel syndrome with diarrhea K58.0 [place] [id number] [place] [address] 17683- 8307 Dec, Diarrhea, unspecified type R19.7 [place] [id number] [place] [address] 92466- 7803 Nov, Acute non-recurrent maxillary sinusitis J01.00 ; Pulmonary emphysema, unspecified emphysema type J43.9 ; Diarrhea, unspecified type R19.7 and Other iron deficiency anemia D50.8 [place] [id number] [place] [address] 19229- 1811 Nov, [facility] [id number] [place] [address] 07900 -0841 Nov, Sore throat J02.9 and Strep pharyngitis J02.0 [place] [id number] [place] [address] 75474- 8992 Nov, Other iron deficiency anemia D50.8 [place] [address] 60450- 2916 14 Nov, 2016 Anxiety F41.9 and Low hemoglobin D64.9 [place] [address] 98116- 5792 14 Oct, 2016 Anxiety F41.9 [place] [address] 74713- 9548 16 Sep, 2016 Anxiety F41.9 [place] [address] 77745- 3254 13 Sep, 2016 Left upper quadrant pain R10.[address] 24906- 1080 Sep, Other iron deficiency anemia D50.8 and Left upper quadrant pain R10.12 [place] [id number] [place] [address] 15303- 3667 August, Anxiety F41.[address] 30228- 3595 August, Other iron deficiency anemia D50.8 and Left upper quadrant pain R10.12 [place] [id number] [place] [address] 63130- 5109 Jul, Other iron deficiency anemia D50.8 ; Acute gastric ulcer with hemorrhage K25.0 and Anxiety F41.[address] 55705- 0826 18 Jul, 2016 Other iron deficiency anemia D50.8 ; Other fatigue R53.83 ; Nicotine abuse Z72.0 ; Anxiety F41.9 and Pulmonary emphysema, unspecified emphysema type J43.[address] 48472- 6831 31 Jun, 2016 Other iron deficiency anemia D50.8 and Hematochezia K92.1 [place] [id number] [place] [address] 56088- 8413 Jun, Other fatigue R53.83 and Other iron deficiency anemia D50.8 [place] [id number] [place] [address] 93883- 5021 Jun, Other fatigue R53.83 [place] [id number] [place] [address] 08851- 2529 Jun, Other iron deficiency anemia D50.8 ; Nicotine abuse Z72.0 ; Anxiety F41.9 and Pulmonary emphysema, unspecified emphysema type J43.9 [place] [id number] [place] [address] 73840- 2436 17 Jun, 2016 Low hemoglobin D64.9 [place] [id number] [place] [address] 81732- 6312 16 Jun, 2016 Low hemoglobin D64.9 [place] [id number] [place] [address] 92058- 8123 14 Jun, 2016 Anxiety F41.9 ; Nicotine abuse Z72.0 and Reactive depression F32.9 [place] [id number] [place] [address] 05822- 3694 Jun, Anxiety F41.9 [place] [id number] [place] [address] 14204- 4530 May, Anxiety F41.9 ; Nicotine abuse Z72.0 and Reactive depression F32.9 [place] [id number] [place] [address] 47290- 0732 May, Anxiety F41.9 [place] [id number] [place] [address] 19594- 6934 May, Anxiety F41.9 ; Nicotine abuse Z72.0 and Reactive depression F32.9 [place] [address] 66260- 3126 May, [facility] [address] 61933- 3132 May, [place] [address] 66574- 5469 May, Anxiety F41.9 [place] [address] 63706- 9693 May, Other emphysema J43.8 ; Cramping of hands R25.2 ; Irritable bowel syndrome with diarrhea K58.0 ; Breast cancer screening Z12.39 ; Candidal stomatitis B37.0 and Candidal esophagitis B37.81 [place] [address] 83705- 9304 Apr, Anxiety F41.9 [place] [address] 95584- 6919 Mar, Anxiety F41.9 [place] [address] 83987- 5766 Feb, Anxiety F41.9 [place] [address] 91739- 9706 Jan, Anxiety F41.9 [place] [address] 85139- 7510 Jan, Anxiety F41.9 [place] [address] 13265- 5417 Jan, Anxiety F41.9 [place] [address] 74158- 6628 Jan, Anxiety F41.9 ; Nicotine abuse Z72.0 ; Pulmonary emphysema, unspecified emphysema type J43.9 ; Memory loss R41.3 and Abdominal pain, unspecified location R10.9 [place] [address] 04044- 4137 Jan, [facility] [address], [place] [address]- 0864 Dec, Anxiety F41.9 [facility] [id number] [place] [address] 16963 -7809 Dec, Right arm pain M79.601 [facility] [address], [place] [address]- 5710 Nov, Anxiety F41.9 [facility] [id number] [place] [address] 34046- 7650 Oct, Anxiety F41.9 [facility] [id number] [place] [address] 63739- 0368 Oct, [facility] [id number] [place] [address] 33508- 9315 Sep, Anxiety F41.9 [facility] [id number] [place] [address] 29147- 0304 Sep, Left lower quadrant pain R10.32 ; Memory loss R41.3 and Basal cell carcinoma of skin, unspecified C44.91 [facility] [id number] [place] [address] 84627- 1498 Sep, Anxiety F41.9 [facility] [address], [place] [address]- 8464 August, Anxiety F41.9 [facility] [id number] [place] [address] 60243- 7549 August, Left lower quadrant pain R10.32 ; Memory loss R41.3 ; Pulmonary emphysema, unspecified emphysema type J43.9 and Depression, unspecified depression type F32.9 [facility] [address] [address]- 0178 August, [facility] [address], [place] [address]- 7036 Jul, [facility] [id number] [place] [address] 67105- 4677 Jun, [facility] [id number] [place] [address] 09675- 2511 May, [facility] [id number] [place] [address] 08829- 1088 Apr, [facility] [id number] [place] [address] 16060- 6478 Apr, Chronic obstructive pulmonary disease with acute exacerbation J44.1 ; Anxiety F41.9 and Nicotine abuse Z72.0 [facility] [id number] [place] [address] 76452- 0365 Apr, [facility] [id number] [place] [address] 42349- 0583 Mar, Anxiety disorder, unspecified F41.9 [facility] [id number] [place] [address] 20588- 1398 Mar, [facility] [id number] [place] [address] 95336- 6367 Feb, [facility] [id number] [place] [address] 42060- 7200 Nov, [facility] [id number] [place] [address] 73341- 0499 Nov, [facility] [id number] [place] [address] 99669- 8246 Nov, Basal cell carcinoma 173.91 and Astigmatism with presbyopia 367.20 [facility] [id number] [place] [address] 96291- 2854 Oct, [facility] [id number] [place] [address] 40636- 7463 Oct, Lipoma 214.9 [facility] [id number] [place] [address] 48809- 9897 Sep, Ganglion cyst 727.43 ; Chronic airway obstruction, not elsewhere classified 496 ; Hypertension 401.9 ; CAD (coronary artery disease) 414.00 and Dysthymia 300.4 [facility] [address], [place] [address]- 2979 14 Jul, 2014 [facility] [address], [place] [address]- 8242 Jul, [facility] [id number] [place] [address] 09753- 7250 Jun, [facility] [id number] [place] [address] 20715- 2508 Jun, [facility] [id number] [place] [address] 55668- 9008 Jun, [facility] [id number] [place] [address] 33151- 8452 Jun, [facility] [id number] [place] [address] 58949- 1266 May, [facility] [address] [address]- 4345 May, [facility] [address], [place] [address]- 7103 Mar, [facility] [address], [place] [address]- 2287 Mar, [facility] [address], [place] [address]- 1881 Mar, [facility] [address], [place] [address]- 4703 Mar, [facility] [id number] [address]- 5649 Feb, [facility] [address] 7496 Feb, [facility] [address], [place] [address]- 2236 Feb, [facility] [place] [facility] [address] [id number] [place] [address]- 7919 Feb, [facility] [place] [facility] [address] [id number] [place] [address]- 4592 Feb, [facility] [place] [facility] [address] [id number] [place] [address]- 5585 Feb, [facility] [place] [facility] [address] [id number] [place] [address]- 8501 Feb, [facility] [place] [facility] [address] [id number] [place] [address]- 5348 Feb, [facility] [place] [facility] [address] [id number] [place] [address]- 3834 Feb, [facility] [place] [facility] [address] [id number] [place] [address]- 7632 Feb, [facility] [place] [facility] [address] [id number] [place] [address]- 7005 Dec, [facility] [place] [facility] [address] [id number] [place] [address]- 9975 Dec, [facility] [place] [facility] [address] [id number] [place] [address]- 1611 Nov, [facility] [place] [facility] [address] [id number] [place] [address]- 1911 Oct, [facility] [place] [facility] [address] [id number] [place] [address]- 5816 Oct, [facility] [place] [facility] [address] [id number] [place] [address]- 2692 August, [facility] [place] [facility] [address] [id number] [place] [address]- 2570 August, [facility] [place] [facility] [address] [id number] [place] [address]- 2422 August, [facility] [place] [facility] [address] [id number] [place] [address]- 4426 August, [facility] [place] [facility] [address] [id number] [place] [address]- 2673 Jul, [facility] [place] [facility] [address] [id number] [place] [address]- 1816 Jul, [facility] [place] [facility] [address] [id number] [place] [address]- 1118 Jun, [facility] [place] [facility] [address] [id number] [place] [address]- 5593 Jun, [facility] [place] [facility] [address] [id number] [place] [address]- 9530 Jun, [facility] [place] [facility] [address] [id number] [place] [address]- 1651 Jun, [facility] [place] [facility] [address] [id number] [place] [address]- 9794 Jun, [facility] [place] [facility] [address] [id number] [place] [address]- 0147 Jun, [facility] [place] [facility] [address] [id number] [place] [address]- 5219 Jun, [facility] [place] [facility] [address] [id number] [place] [address]- 8888 Jun, [facility] [place] [facility] [address] [id number] [place] [address]- 6359 Jun, [facility] [place] [facility] [address] [id number] [place] [address]- 5192 Jun, [facility] [place] [facility] [address] [id number] [place] [address]- 8937 Jun, [facility] [place] [facility] [address] [id number] [place] [address]- 8486 Jun, [facility] [place] [facility] [address] [id number] [place] [address]- 3969 Jun, [facility] [place] [facility] [address] [id number] [place] [address]- 2953 Jun, [facility] [place] [facility] [address] [id number] [place] [address]- 8115 Jun, [facility] [place] [facility] [address] [id number] [place] [address]- 1724 Jun, [facility] [place] [facility] [address] [id number] [place] [address]- 7391 Jun, [facility] [place] [facility] [address] [id number] [place] [address]- 5202 Jun, [facility] [place] [facility] [address] [id number] [place] [address]- 7466 Jun, [facility] [place] [facility] [address] [id number] [place] [address]- 4002 May, [facility] [place] [facility] [address] [id number] [place] [address]- 5469 May, [facility] [place] [facility] [address] [id number] [place] [address]- 2394 May, [facility] [place] [facility] [address] [id number] [place] [address]- 6768 May, [facility] [place] [facility] [address] [id number] [place] [address]- 4326 Apr, [facility] [place] [facility] [address] [id number] [place] [address]- 7806 Apr, [facility] [place] [facility] [address] [id number] [place] [address]- 4391 Mar, [facility] [place] [facility] [address] [id number] [place] [address]- 8289 Mar, [facility] [place] [facility] [address] [id number] [place] [address]- 0182 Mar, [facility] [place] [facility] [address] [id number] [place] [address]- 2544 Mar, [facility] [address] [id number] [place] [address]- 6345 Mar, [facility] [address] [id number] [place] [address]- 3946 Mar, [facility] [address] [id number] [place] [address]- 6563 Mar, 2012 [facility] [address] [id number] [place] [address]- 2548 Mar, [facility] [address] [id number] [place] [address]- 0928 Mar, [facility] [address] [id number] [place] [address]- 3805 Mar, [facility] [address] [id number] [place] [address]- 9443 Mar, [facility] [address] [id number] [place] [address]- 0650 Feb, [facility] [address] [id number] [place] [address]- 6957 Feb, [facility] [address] [id number] [place] [address]- 7639 Jan, [facility] [address] [id number] [place] [address]- 5800 Jan, [facility] [address] [id number] [place] [address]- 254 Jan, [facility] [place] [facility] [address] [id number] [place] [address]- 2544 Nov, [facility] [place] [facility] [address] [id number] [place] [address]- 2546 Oct, [facility] [address] [id number] [place] [address]- 2543 Oct, [facility] [place] [facility] [address] [id number] [place] [address]- 6507 Oct, [facility] [place] [facility] [address] [id number] [place] [address]- 0957 Oct, [facility] [place] [facility] [address] [id number] [place] [address]- 8534 Oct, [facility] [place] [facility] [address] [id number] [place] [address]- 2544 Oct, [facility] [address] [id number] [place] [address]- 8697 Oct, [facility] [place] [facility] [address] [id number] [place] [address] Oct, [facility] [address] [id number] [place] [address] Sep, [facility] [place] [facility] [address] [id number] [place] [address] Sep, [facility] [place] [facility] [address] [id number] [place] [address] Sep, [facility] [place] [facility] [address] [id number] [place] [address] Sep, [facility] [place] [facility] [address] [id number] [place] [address] August, [facility] [place] [facility] [address] [id number] [place] [address] August, [facility] [place] [facility] [address] [id number] [place] [address] August, [facility] [place] [facility] [address] [id number] [place] [address] August, [facility] [place] [facility] [address] [id number] [place] [address] August, [facility] [place] [facility] [address] [id number] [address] August, [facility] [address] [id number] [place] [address] Jul, [facility] [place] [facility] [address] [id number] [place] [address] May, [facility] [address] [facility] [id number] [place] [address] Apr, [facility] [place] [facility] [address] [id number] [place] [address] Apr, [facility] [address] [id number] [place] [address] Apr, [facility] [address] [id number] [place] [address] Mar, [facility] [address] [id number] [address] Mar, [facility] [address] [facility] [id number] [place] [address] Mar, [facility] [address] [facility] [id number] [place] [address] Mar, [facility] [address] [facility] [id number] [place] [address] Jan, [facility] [address] [facility] [id number] [place] [address] Nov, [facility] [place] [facility] [address] [id number] [place] [address] Sep, [facility] [place] [facility] [address] [id number] [place] [address] August, [facility] [place] [facility] [address] [facility] [id number] [place] [address] August, [facility] [place] [facility] [address] [facility] [id number] [place] [address] Jul, [facility] [place] [facility] [id number], [place] [address] Jul, [facility] [id number] [address] Jul, [facility] [id number], [place] [address] Jul, [facility] [id number], [place] [address] Jul, [facility] [id number], [place] [address] Jun, [facility] [id number] [place] [address] Apr, [facility] [id number], [place] [address] Feb, [facility] [id number], [place] [address] Nov, [facility] [id number], [place] [address] Oct, [facility] [id number], [place] [address] Feb, [facility] [address] [id number], [place] [address] August, [facility] [address] [id number], [place] [address] Jul, [facility] [address] [id number] [address] Jun, IMMUNIZATIONS No Known Immunizations SOCIAL HISTORY Never Assessed REASON FOR VISIT strep f/u PLAN OF CARE VITAL SIGNS MEDICATIONS Unknown [...]
--- OUTSIDE RECORDS SUMMARY | 2017-09-08 17:56 | XMS REPORT ---
Author Author CASEY SIMPSON Organization [facility] Address [address] [place] [address] Care Team Providers Care Allergist Name Role Phone CASEY SIMPSON Unavailable PROBLEMS Type Condition ICD9-CM Code UBD07-GW Code Onset Dates Condition Status SNOMED Code Problem Memory loss R41.3 Active 45391144 Problem Other emphysema J43.8 Active 77705623 Problem Irritable bowel syndrome with diarrhea K58.0 Active 028959092 Problem Chronic prescription benzodiazepine use Z79.899 Active 205141377 Problem Benign familial tremor G25.0 Active 633891576 Problem Other iron deficiency anemia D50.8 Active 80884528 Problem Reactive depression F32.9 Active 81228638 Problem Coarse tremors G25.2 Active 96489764 Problem Claustrophobia F40.240 Active 60279292 Problem Essential hypertension I10 Active 13620665 Problem Anxiety F41.9 Active 82687708 Problem Nicotine abuse Z72.0 Active 11904711 Problem Supplemental oxygen dependent Z99.81 Active 927819985474 Problem Chronic obstructive pulmonary disease with acute exacerbation J44.1 Active 163633574 Problem CAD (coronary artery disease) 414.00 Active 41146996 Problem Pulmonary emphysema, unspecified emphysema type J43.9 Active 04169031 ALLERGIES No Information ENCOUNTERS Encounter Location Date Diagnosis [facility] [id number] [address] Jun, Pulmonary emphysema, unspecified emphysema type J43.9 and Anxiety F41.9 [facility] [id number] [place] [address] 26313- 7947 Jun, Anxiety F41.9 [facility] [address] [address] Jun, [facility] [id number] [place] [address] 46869- 4223 Jun, [facility] [id number] [place] [address] 59557- 9319 Jun, [facility] [address] [address] Jun, Dysuria R30.0 and Acute cystitis with hematuria N30.01 [facility] [address] [address]- 5010 May, Anxiety F41.9 and Chronic prescription benzodiazepine use Z79.899 [facility] [address] [address]- 4759 May, Anxiety F41.9 and Chronic prescription benzodiazepine use Z79.899 [facility] [address] [address]- 0096 May, Benign familial tremor G25.0 [facility] [address] [address]- 8557 Apr, Other iron deficiency anemia D50.8 [facility] [address] 18[address]- 1863 Apr, Anxiety F41.9 [facility] [address] 7[address]- 9004 Apr, [facility] [id number] [place] [address] 25988- 1074 Apr, Pancreatic cyst K86.2 ; Other iron deficiency anemia D50.8 ; Pulmonary emphysema, unspecified emphysema type J43.9 ; Coarse tremors G25.2 and Claustrophobia F40.240 [place] [address] [address]- 6933 Apr, Anxiety F41.9 [facility] [address] 37934- 9891 Mar, [place] [address] [place] [address] 3245 Mar, Anxiety F41.9 [place] [address] [address]- 5503 Feb, Anxiety F41.9 [place] [id number] [place] [address] 36295- 8752 Jan, [place] [address] [address]20- 8396 Jan, [place] [address] 01377- 6387 Jan, Anxiety F41.9 [place] [address] [address]- 5247 Jan, Pulmonary emphysema, unspecified emphysema type J43.9 ; Encounter for immunization Z23 ; Other iron deficiency anemia D50.8 ; Anxiety F41.9 ; Diarrhea, unspecified type R19.7 and Memory loss R41.3 [place] [id number] [place] [address] 37896- 1678 Dec, Anxiety F41.9 [place] [address] 34983- 2831 Dec, Irritable bowel syndrome with diarrhea K58.0 [place] [id number] [place] [address] 36979- 9168 Dec, Diarrhea, unspecified type R19.7 [place] [id number] [place] [address] 30980- 7931 Nov, Acute non-recurrent maxillary sinusitis J01.00 ; Pulmonary emphysema, unspecified emphysema type J43.9 ; Diarrhea, unspecified type R19.7 and Other iron deficiency anemia D50.8 [place] [id number] [place] [address] 14445- 9098 Nov, [facility] [id number] [place] [address] 74015 -8394 Nov, Sore throat J02.9 and Strep pharyngitis J02.0 [place] [id number] [place] [address] 86055- 1140 Nov, Other iron deficiency anemia D50.8 [place] [address] 95738- 1092 14 Nov, 2016 Anxiety F41.9 and Low hemoglobin D64.9 [place] [address] 90130- 6637 14 Oct, 2016 Anxiety F41.9 [place] [address] 89620- 4580 16 Sep, 2016 Anxiety F41.9 [place] [address] 40988- 4833 13 Sep, 2016 Left upper quadrant pain R10.[address] 72281- 8152 Sep, Other iron deficiency anemia D50.8 and Left upper quadrant pain R10.12 [place] [id number] [place] [address] 86719- 4407 August, Anxiety F41.[address] 13927- 6311 August, Other iron deficiency anemia D50.8 and Left upper quadrant pain R10.12 [place] [id number] [place] [address] 38496- 5769 Jul, Other iron deficiency anemia D50.8 ; Acute gastric ulcer with hemorrhage K25.0 and Anxiety F41.[address] 92330- 9912 18 Jul, 2016 Other iron deficiency anemia D50.8 ; Other fatigue R53.83 ; Nicotine abuse Z72.0 ; Anxiety F41.9 and Pulmonary emphysema, unspecified emphysema type J43.[address] 35380- 4281 31 Jun, 2016 Other iron deficiency anemia D50.8 and Hematochezia K92.1 [place] [id number] [place] [address] 13647- 1615 Jun, Other fatigue R53.83 and Other iron deficiency anemia D50.8 [place] [id number] [place] [address] 27752- 3866 Jun, Other fatigue R53.83 [place] [id number] [place] [address] 86579- 5280 Jun, Other iron deficiency anemia D50.8 ; Nicotine abuse Z72.0 ; Anxiety F41.9 and Pulmonary emphysema, unspecified emphysema type J43.9 [place] [id number] [place] [address] 11052- 5601 17 Jun, 2016 Low hemoglobin D64.9 [place] [id number] [place] [address] 80593- 1820 16 Jun, 2016 Low hemoglobin D64.9 [place] [id number] [place] [address] 45609- 7315 14 Jun, 2016 Anxiety F41.9 ; Nicotine abuse Z72.0 and Reactive depression F32.9 [place] [id number] [place] [address] 32127- 4795 Jun, Anxiety F41.9 [place] [id number] [place] [address] 16231- 9149 May, Anxiety F41.9 ; Nicotine abuse Z72.0 and Reactive depression F32.9 [place] [id number] [place] [address] 38997- 1550 May, Anxiety F41.9 [place] [id number] [place] [address] 89708- 8907 May, Anxiety F41.9 ; Nicotine abuse Z72.0 and Reactive depression F32.9 [place] [address] [address]99- 4240 May, [facility] [address] 78073- 6933 May, [place] [address] 07762- 4764 May, Anxiety F41.9 [place] [address] 61995- 3070 May, Other emphysema J43.8 ; Cramping of hands R25.2 ; Irritable bowel syndrome with diarrhea K58.0 ; Breast cancer screening Z12.39 ; Candidal stomatitis B37.0 and Candidal esophagitis B37.81 [place] [address] 34976- 8909 Apr, Anxiety F41.9 [place] [address] 12198- 5067 Mar, Anxiety F41.9 [place] [address] 70412- 4144 Feb, Anxiety F41.9 [place] [address] 49257- 3234 Jan, Anxiety F41.9 [place] [address] 51951- 5491 Jan, Anxiety F41.9 [place] [address] 95378- 9661 Jan, Anxiety F41.9 [place] [address] 65539- 6305 Jan, Anxiety F41.9 ; Nicotine abuse Z72.0 ; Pulmonary emphysema, unspecified emphysema type J43.9 ; Memory loss R41.3 and Abdominal pain, unspecified location R10.9 [place] [address] 21927- 3456 Jan, [facility] [address], [place] [address]- 6507 Dec, Anxiety F41.[address] [facility] [id number] [place] [address] 02637 -8264 Dec, Right arm pain M79.601 [facility] [address], [place] [address]- 2128 Nov, Anxiety F41.9 [facility] [id number] [place] [address] 76760- 5880 Oct, Anxiety F41.9 [facility] [id number] [place] [address] 07342- 7811 Oct, [facility] [id number] [place] [address] 32561- 9170 Sep, Anxiety F41.9 [facility] [id number] [place] [address] 19359- 6686 Sep, Left lower quadrant pain R10.32 ; Memory loss R41.3 and Basal cell carcinoma of skin, unspecified C44.91 [facility] [id number] [place] [address] 83686- 8439 Sep, Anxiety F41.9 [facility] [address], [place] [address]- 6827 August, Anxiety F41.9 [facility] [id number] [place] [address] 80523- 7824 August, Left lower quadrant pain R10.32 ; Memory loss R41.3 ; Pulmonary emphysema, unspecified emphysema type J43.9 and Depression, unspecified depression type F32.9 [facility] [address], [place] [address]- 9587 August, [facility] [address] [address]- 8192 Jul, [facility] [id number] [place] [address] 38843- 7851 Jun, [facility] [id number] [place] [address] 52285- 5203 May, [facility] [id number] [place] [address] 44320- 9499 Apr, [facility] [id number] [place] [address] 92204- 7728 Apr, Chronic obstructive pulmonary disease with acute exacerbation J44.1 ; Anxiety F41.9 and Nicotine abuse Z72.0 [facility] [id number] [place] [address] 03200- 1438 Apr, [facility] [id number] [place] [address] 21033- 8071 Mar, Anxiety disorder, unspecified F41.9 [facility] [id number] [place] [address] 24128- 2066 Mar, [facility] [id number] [place] [address] 89552- 2680 Feb, [facility] [id number] [place] [address] 61060- 8531 Nov, [facility] [id number] [place] [address] 92109- 3378 Nov, [facility] [id number] [place] [address] 15091- 2019 Nov, Basal cell carcinoma 173.91 and Astigmatism with presbyopia 367.20 [facility] [id number] [place] [address] 29172- 0888 Oct, [facility] [id number] [place] [address] 76425- 7464 Oct, Lipoma 214.9 [facility] [id number] [place] [address] 15490- 7976 Sep, Ganglion cyst 727.43 ; Chronic airway obstruction, not elsewhere classified 496 ; Hypertension 401.9 ; CAD (coronary artery disease) 414.00 and Dysthymia 300.4 [facility] [address], [place] [address]- 4668 14 Jul, 2014 [facility] [address], [place] [address]- 9647 Jul, [facility] [id number] [place] [address] 89001- 3217 Jun, [facility] [id number] [place] [address] 89973- 7156 Jun, [facility] [id number] [place] [address] 97815- 1237 Jun, [facility] [id number] [place] [address] 67208- 9080 Jun, [facility] [id number] [place] [address] 60303- 4294 May, [facility] [address], [place] [address]- 4769 May, [facility] [address], [place] [address]- 6948 Mar, [facility] [address], [place] [address]- 9199 Mar, [facility] [address] [address]- 8318 Mar, [facility] [address], [place] [address]- 1316 Mar, [facility] [id number] [address]- 9531 Feb, [facility] [address] 8873 Feb, [facility] [address], [place] [address]- 9466 Feb, [facility] [place] [facility] [address] [id number] [place] [address]- 0965 Feb, [facility] [place] [facility] [address] [id number] [place] [address]- 8895 Feb, [facility] [place] [facility] [address] [id number] [place] [address]- 7299 Feb, [facility] [place] [facility] [address] [id number] [place] [address]- 1028 Feb, [facility] [place] [facility] [address] [id number] [place] [address]- 9361 Feb, [facility] [place] [facility] [address] [id number] [place] [address]- 1257 Feb, [facility] [place] [facility] [address] [id number] [place] [address]- 3795 Feb, [facility] [place] [facility] [address] [id number] [place] [address]- 8662 Dec, [facility] [place] [facility] [address] [id number] [place] [address]- 6017 Dec, [facility] [place] [facility] [address] [id number] [place] [address]- 9683 Nov, [facility] [place] [facility] [address] [id number] [place] [address]- 5304 Oct, [facility] [place] [facility] [address] [id number] [place] [address]- 5719 Oct, [facility] [place] [facility] [address] [id number] [place] [address]- 4488 August, [facility] [place] [facility] [address] [id number] [place] [address]- 2458 August, [facility] [place] [facility] [address] [id number] [place] [address]- 0156 August, [facility] [place] [facility] [address] [id number] [place] [address]- 3946 August, [facility] [place] [facility] [address] [id number] [place] [address]- 0670 Jul, [facility] [place] [facility] [address] [id number] [place] [address]- 9646 Jul, [facility] [place] [facility] [address] [id number] [place] [address]- 5382 Jun, [facility] [place] [facility] [address] [id number] [place] [address]- 2088 Jun, [facility] [place] [facility] [address] [id number] [place] [address]- 8165 Jun, [facility] [place] [facility] [address] [id number] [place] [address]- 0651 Jun, [facility] [place] [facility] [address] [id number] [place] [address]- 4849 Jun, [facility] [place] [facility] [address] [id number] [place] [address]- 0804 Jun, [facility] [place] [facility] [address] [id number] [place] [address]- 9777 Jun, [facility] [place] [facility] [address] [id number] [place] [address]- 8731 Jun, [facility] [place] [facility] [address] [id number] [place] [address]- 0813 Jun, [facility] [place] [facility] [address] [id number] [place] [address]- 3191 Jun, [facility] [place] [facility] [address] [id number] [place] [address]- 3259 Jun, [facility] [place] [facility] [address] [id number] [place] [address]- 7906 Jun, [facility] [place] [facility] [address] [id number] [place] [address]- 6394 Jun, [facility] [place] [facility] [address] [id number] [place] [address]- 6911 Jun, [facility] [place] [facility] [address] [id number] [place] [address]- 8441 Jun, [facility] [place] [facility] [address] [id number] [place] [address]- 5505 Jun, [facility] [place] [facility] [address] [id number] [place] [address]- 8033 Jun, [facility] [place] [facility] [address] [id number] [place] [address]- 3537 Jun, [facility] [place] [facility] [address] [id number] [place] [address]- 7937 Jun, [facility] [place] [facility] [address] [id number] [place] [address]- 2996 May, [facility] [place] [facility] [address] [id number] [place] [address]- 8758 May, [facility] [place] [facility] [address] [id number] [place] [address]- 8740 May, [facility] [place] [facility] [address] [id number] [place] [address]- 0799 May, [facility] [place] [facility] [address] [id number] [place] [address]- 3223 Apr, [facility] [place] [facility] [address] [id number] [place] [address]- 6874 Apr, [facility] [place] [facility] [address] [id number] [place] [address]- 4409 Mar, [facility] [place] [facility] [address] [id number] [place] [address]- 7940 Mar, [facility] [place] [facility] [address] [id number] [place] [address]- 4018 Mar, [facility] [place] [facility] [address] [id number] [place] [address]- 2549 Mar, [facility] [address] [id number] [place] [address]- 4100 Mar, [facility] [address] [id number] [place] [address]- 2116 Mar, [facility] [address] [id number] [place] [address]- 8974 Mar, 2012 [facility] [address] [id number] [place] [address]- 2542 Mar, [facility] [address] [id number] [place] [address]- 8339 Mar, [facility] [address] [id number] [place] [address]- 6980 Mar, [facility] [address] [id number] [place] [address]- 7256 Mar, [facility] [address] [id number] [place] [address]- 5770 Feb, [facility] [address] [id number] [place] [address]- 4454 Feb, [facility] [address] [id number] [place] [address]- 8584 Jan, [facility] [address] [id number] [place] [address]- 1093 Jan, [facility] [address] [id number] [place] [address]- 254 Jan, [facility] [place] [facility] [address] [id number] [place] [address]- 2547 Nov, [facility] [place] [facility] [address] [id number] [place] [address]- 2546 Oct, [facility] [address] [id number] [place] [address]- 2548 Oct, [facility] [place] [facility] [address] [id number] [place] [address]- 0328 Oct, [facility] [place] [facility] [address] [id number] [place] [address]- 9719 Oct, [facility] [place] [facility] [address] [id number] [place] [address]- 7125 Oct, [facility] [place] [facility] [address] [id number] [place] [address]- 2547 Oct, [facility] [address] [id number] [place] [address]- 2971 Oct, [facility] [place] [facility] [address] [id number] [place] [address]- 2916 Oct, [facility] [address] [id number] [place] [address]- 2516 Sep, [facility] [place] [facility] [address] [id number] [place] [address]- 1986 Sep, [facility] [place] [facility] [address] [id number] [place] [address]- 3293 Sep, [facility] [place] [facility] [address] [id number] [place] [address]- 6687 Sep, [facility] [place] [facility] [address] [id number] [place] [address] August, [facility] [place] [facility] [address] [id number] [place] [address] August, [facility] [place] [facility] [address] [id number] [place] [address] August, [facility] [place] [facility] [address] [id number] [place] [address] August, [facility] [place] [facility] [address] [id number] [place] [address] August, [facility] [place] [facility] [address] [id number] [address] August, [facility] [address] [id number] [place] [address] Jul, [facility] [place] [facility] [address] [id number] [place] [address] May, [facility] [address] [facility] [id number] [place] [address] Apr, [facility] [place] [facility] [address] [id number] [place] [address] Apr, [facility] [address] [id number] [place] [address] Apr, [facility] [address] [id number] [place] [address] Mar, [facility] [address] [id number] [place] [address] Mar, [facility] [address] [facility] [id number] [place] [address] Mar, [facility] [address] [facility] [id number] [place] [address] Mar, [facility] [address] [facility] [id number] [place] [address] Jan, [facility] [address] [facility] [id number] [place] [address] Nov, [facility] [place] [facility] [address] [id number] [place] [address] Sep, [facility] [place] [facility] [address] [id number] [place] [address] August, [facility] [place] [facility] [address] [facility] [address] [id number] [place] [address] August, [facility] [place] [facility] [address] [facility] [address] [id number] [place] [address] Jul, [facility] [place] [facility] [id number] [address] Jul, [facility] [id number] [address] Jul, [facility] [id number] [address] Jul, [facility] [id number] [address] [address] Jul, [facility] [id number] [address] Jun, [facility] [id number] [place] [address] Apr, [facility] [id number] [address] [address] Feb, [facility] [id number] [address] Nov, [facility] [id number] [address] Oct, [facility] [id number] [address] Feb, [facility] [address] [id number] [address] August, [facility] [id number] [address] Jul, [facility] [address] [id number] [address] Jun, IMMUNIZATIONS No Known Immunizations SOCIAL HISTORY Never Assessed REASON FOR VISIT Controlled Med Refill 10/31/2016 PLAN OF CARE VITAL SIGNS MEDICATIONS Medication Instructions Dosage Frequency Start Date End Date Duration Status Ativan 1 MG Orally 2 times a day 1 tablet as needed 12h 22 Jun, 2016 28 days Active RESULTS No Results PROCEDURES [...]
--- OUTSIDE RECORDS SUMMARY | 2017-09-08 17:58 | XMS REPORT ---
Author Author CASEY SIMPSON Organization [facility] Address [address] [place] [address] Care Team Providers Care Director Inpatient Headache Program Name Role Phone CASEY SIMPSON Unavailable PROBLEMS Type Condition ICD9-CM Code CIM99-AA Code Onset Dates Condition Status SNOMED Code Problem Memory loss R41.3 Active 12647697 Problem Other emphysema J43.8 Active 91684419 Problem Irritable bowel syndrome with diarrhea K58.0 Active 789066672 Problem Chronic prescription benzodiazepine use Z79.899 Active 686427679 Problem Benign familial tremor G25.0 Active 131785543 Problem Other iron deficiency anemia D50.8 Active 62304376 Problem Reactive depression F32.9 Active 19420191 Problem Coarse tremors G25.2 Active 43195772 Problem Claustrophobia F40.240 Active 47529065 Problem Essential hypertension I10 Active 84979216 Problem Anxiety F41.9 Active 43832857 Problem Nicotine abuse Z72.0 Active 38284706 Problem Supplemental oxygen dependent Z99.81 Active 280206138628 Problem Chronic obstructive pulmonary disease with acute exacerbation J44.1 Active 724227611 Problem CAD (coronary artery disease) 414.00 Active 10502871 Problem Pulmonary emphysema, unspecified emphysema type J43.9 Active 80520316 ALLERGIES No Information ENCOUNTERS Encounter Location Date Diagnosis [facility] [id number] [address] Sep, [facility] [id number] [place] [address] 14036- 3266 Jul, Anxiety F41.9 [facility] [address] [address] Jun, Pulmonary emphysema, unspecified emphysema type J43.9 and Anxiety F41.9 [facility] [id number] [place] [address] 36525- 9596 Jun, Anxiety F41.9 [facility] [address] 9[address]63- 5592 Jun, [facility] [id number] [place] [address] 50515- 9183 Jun, [facility] [address] 34766- 6804 Jun, [facility] [address] [address] -[address]25 Jun, Dysuria R30.0 and Acute cystitis with hematuria N30.01 [address] [address]17- 6595 May, Anxiety F41.9 and Chronic prescription benzodiazepine use Z79.899 [place] [address] 59885- 4749 May, Anxiety F41.9 and Chronic prescription benzodiazepine use Z79.899 [place] [id number] [place] [address] 02889- 8202 May, Benign familial tremor G25.0 [place] [address] 03150- 3021 Apr, Other iron deficiency anemia D50.8 [place] [id number] [place] [address] 88875- 3697 Apr, Anxiety F41.9 [place] [id number] [place] [address] 32510- 5619 Apr, [place] [address] 64462- 2618 Apr, Pancreatic cyst K86.2 ; Other iron deficiency anemia D50.8 ; Pulmonary emphysema, unspecified emphysema type J43.9 ; Coarse tremors G25.2 and Claustrophobia F40.240 [place] [address] [place] [address] 5635 Apr, Anxiety F41.9 [place] [id number] [place] [address] 02198- 0792 Mar, [place] [id number] [place] [address] 75845- 4369 Mar, Anxiety F41.9 [place] [address] 82598- 9416 Feb, Anxiety F41.9 [place] [address] 99010- 3348 Jan, [place] [address] 38186- 4380 Jan, [place] [id number] [place] [address] 70615- 2035 Jan, Anxiety F41.9 [place] [id number] [place] [address] 56369- 1055 Jan, Pulmonary emphysema, unspecified emphysema type J43.9 ; Encounter for immunization Z23 ; Other iron deficiency anemia D50.8 ; Anxiety F41.9 ; Diarrhea, unspecified type R19.7 and Memory loss R41.3 [place] [id number] [place] [address] 34788- 4688 Dec, Anxiety F41.9 [place] [id number] [place] [address] 15449- 6536 Dec, Irritable bowel syndrome with diarrhea K58.0 [place] [id number] [place] [address] 86829- 6039 Dec, Diarrhea, unspecified type R19.7 [place] [id number] [place] [address] 06227- 7242 Nov, Acute non-recurrent maxillary sinusitis J01.00 ; Pulmonary emphysema, unspecified emphysema type J43.9 ; Diarrhea, unspecified type R19.7 and Other iron deficiency anemia D50.8 [facility] [id number] [place] [address] 52671- 9236 Nov, [facility] [id number] [place] [address] 60835 -4406 Nov, Sore throat J02.9 and Strep pharyngitis J02.0 [place] [address] 62741- 0384 Nov, Other iron deficiency anemia D50.8 [place] [address] 27433- 4419 Nov, Anxiety F41.9 and Low hemoglobin D64.9 [place] [address] 71947- 8771 Oct, Anxiety F41.9 [place] [address] 42558- 3945 16 Sep, 2016 Anxiety F41.9 [place] [address] 73867- 6907 13 Sep, 2016 Left upper quadrant pain R10.12 [place] [address] 99557- 6764 07 Sep, 2016 Other iron deficiency anemia D50.8 and Left upper quadrant pain R10.12 [place] [id number] [place] [address] 02182- 3182 August, Anxiety F41.9 [place] [id number] [place] [address] 43065- 5050 August, Other iron deficiency anemia D50.8 and Left upper quadrant pain R10.12 [place] [id number] [place] [address] 66651- 6714 Jul, Other iron deficiency anemia D50.8 ; Acute gastric ulcer with hemorrhage K25.0 and Anxiety F41.9 [place] [id number] [place] [address] 17357- 0266 Jul, Other iron deficiency anemia D50.8 ; Other fatigue R53.83 ; Nicotine abuse Z72.0 ; Anxiety F41.9 and Pulmonary emphysema, unspecified emphysema type J43.9 [facility] [id number] [place] [address] 86438- 5918 31 Jun, 2016 Other iron deficiency anemia D50.8 and Hematochezia K92.1 [facility] [id number] [place] [address] 35032- 3104 Jun, Other fatigue R53.83 and Other iron deficiency anemia D50.8 [place] [id number] [place] [address] 90926- 4539 Jun, Other fatigue R53.83 [place] [id number] [place] [address] 57382- 1960 Jun, Other iron deficiency anemia D50.8 ; Nicotine abuse Z72.0 ; Anxiety F41.9 and Pulmonary emphysema, unspecified emphysema type J43.9 [place] [id number] [place] [address] 53579- 0916 Jun, Low hemoglobin D64.9 [place] [id number] [place] [address] 82295- 7034 16 Jun, 2016 Low hemoglobin D64.9 [place] [id number] [place] [address] 57550- 9947 Jun, Anxiety F41.9 ; Nicotine abuse Z72.0 and Reactive depression F32.9 [place] [id number] [place] [address] 81566- 1863 Jun, Anxiety F41.9 [place] [id number] [place] [address] 78729- 3036 May, Anxiety F41.9 ; Nicotine abuse Z72.0 and Reactive depression F32.9 [place] [id number] [place] [address] 70912- 8183 May, Anxiety F41.9 [place] [id number] [place] [address] 92218- 4784 May, Anxiety F41.9 ; Nicotine abuse Z72.0 and Reactive depression F32.9 [place] [id number] [place] [address] 05260- 6339 May, [place] [address] 43375- 4172 May, [place] [address] 73724- 2211 May, Anxiety F41.9 [place] [address] 54022- 2077 May, Other emphysema J43.8 ; Cramping of hands R25.2 ; Irritable bowel syndrome with diarrhea K58.0 ; Breast cancer screening Z12.39 ; Candidal stomatitis B37.0 and Candidal esophagitis B37.81 [place] [id number] [place] [address] 20433- 6833 Apr, Anxiety F41.9 [place] [address] 56471- 3313 Mar, Anxiety F41.9 [place] [id number] [place] [address] 45323- 7916 Feb, Anxiety F41.9 [place] [id number] [place] [address] 89951- 9335 Jan, Anxiety F41.9 [place] [id number] [place] [address] 77839- 5557 Jan, Anxiety F41.9 [place] [id number] [place] [address] 63515- 8499 Jan, Anxiety F41.9 [place] [id number] [place] [address] 63813- 3829 Jan, Anxiety F41.9 ; Nicotine abuse Z72.0 ; Pulmonary emphysema, unspecified emphysema type J43.9 ; Memory loss R41.3 and Abdominal pain, unspecified location R10.9 [facility] [id number] [place] [address] 09573- 9495 Jan, [facility] [id number] [place] [address] 36498- 0866 Dec, Anxiety F41.9 [facility] [id number] [place] [address] 05581 -5146 Dec, Right arm pain M79.601 [facility] [id number] [place] [address] 23492- 6681 Nov, Anxiety F41.9 [facility] [id number] [place] [address] 15081- 4013 Oct, Anxiety F41.9 [facility] [id number] [place] [address] 19103- 9942 Oct, [facility] [id number] [place] [address] 11226- 9923 Sep, Anxiety F41.9 [facility] [id number] [place] [address] 19468- 9910 Sep, Left lower quadrant pain R10.32 ; Memory loss R41.3 and Basal cell carcinoma of skin, unspecified C44.91 [facility] [id number] [place] [address] 75932- 8573 Sep, Anxiety F41.9 [facility] [id number] [place] [address] 88913- 5785 August, Anxiety F41.9 [facility] [id number] [place] [address] 80387- 5003 August, Left lower quadrant pain R10.32 ; Memory loss R41.3 ; Pulmonary emphysema, unspecified emphysema type J43.9 and Depression, unspecified depression type F32.9 [address] [address] [address]- 1764 August, [facility] [id number] [place] [address] 40730- 5411 Jul, [facility] [address] [address]- 7362 Jun, [facility] [id number] [place] [address] 25984- 6455 May, [facility] [id number] [place] [address] 11526- 9758 Apr, [facility] [id number] [place] [address] 64457- 1567 Apr, Chronic obstructive pulmonary disease with acute exacerbation J44.1 ; Anxiety F41.9 and Nicotine abuse Z72.0 [facility] [id number] [place] [address] 20965- 8172 Apr, [facility] [id number] [place] [address] 90466- 6108 Mar, Anxiety disorder, unspecified F41.9 [facility] [id number] [place] [address] 95317- 7899 Mar, [facility] [address] [address]- 2129 Feb, [facility] [id number] [place] [address] 93758- 3234 Nov, [facility] [address] [address]- 2195 Nov, [facility] [id number] [place] [address] 47527- 3397 Nov, Basal cell carcinoma 173.91 and Astigmatism with presbyopia 367.20 [facility] [address] [address]- 9227 Oct, [facility] [id number] [address]- 0830 Oct, Lipoma 214.9 [facility] [id number] [place] [address] 30365- 8466 Sep, Ganglion cyst 727.43 ; Chronic airway obstruction, not elsewhere classified 496 ; Hypertension 401.9 ; CAD (coronary artery disease) 414.00 and Dysthymia 300.4 [facility] [id number] [place] [address] 15229- 5398 Jul, [facility] [id number] [place] [address] 01050- 1150 Jul, [facility] [id number] [place] [address] 81172- 0167 Jun, [facility] [id number] [place] [address] 57781- 2260 Jun, [facility] [id number] [place] [address] 42647- 3867 Jun, [facility] [id number] [place] [address] 08065- 5279 Jun, [facility] [id number] [place] [address] 82640- 3771 May, [facility] [address] [address]- 1908 May, [facility] [address] [address]- 8882 Mar, [facility] [address] [address]- 7657 Mar, [facility] [id number] [place] [address] 05772- 0512 Mar, [facility] [address] [address]- 8616 Mar, [facility] [id number] [address]- 4448 13 Feb, 2014 [facility] [place] [facility] [address] [id number] [place] [address]- 8060 Feb, [facility] [place] [facility] [address] [id number] [place] [address]- 4375 Feb, [facility] [place] [facility] [address] [id number] [place] [address]- 6256 Feb, [facility] [place] [facility] [address] [id number] [place] [address]- 5714 Feb, [facility] [place] [facility] [address] [id number] [place] [address]- 7382 Feb, [facility] [place] [facility] [address] [id number] [place] [address]- 0301 Feb, [facility] [place] [facility] [address] [id number] [place] [address]- 0471 Feb, [facility] [place] [facility] [address] [id number] [place] [address]- 7699 Feb, [facility] [place] [facility] [address] [id number] [place] [address]- 1818 Feb, [facility] [place] [facility] [address] [id number] [place] [address]- 5778 Dec, [facility] [place] [facility] [address] [id number] [place] [address]- 2789 Dec, [facility] [place] [facility] [address] [id number] [place] [address]- 7635 Nov, [facility] [place] [facility] [address] [id number] [place] [address]- 2994 Oct, [facility] [place] [facility] [address] [id number] [place] [address]- 3579 Oct, [facility] [place] [facility] [address] [id number] [place] [address]- 0036 August, [facility] [place] [facility] [address] [id number] [place] [address]- 2954 August, [facility] [place] [facility] [address] [id number] [place] [address]- 1121 August, [facility] [place] [facility] [address] [id number] [place] [address]- 6511 August, [facility] [place] [facility] [address] [id number] [place] [address]- 5150 Jul, [facility] [place] [facility] [address] [id number] [place] [address]- 5110 Jul, [facility] [place] [facility] [address] [id number] [place] [address]- 9413 Jun, [facility] [place] [facility] [address] [id number] [place] [address]- 2198 Jun, [facility] [place] [facility] [address] [id number] [place] [address]- 3279 Jun, [facility] [place] [facility] [address] [id number] [place] [address]- 4598 Jun, [facility] [place] [facility] [address] [id number] [place] [address]- 3364 Jun, [facility] [place] [facility] [address] [id number] [place] [address]- 5205 Jun, [facility] [place] [facility] [address] [id number] [place] [address]- 3548 Jun, [facility] [place] [facility] [address] [id number] [place] [address]- 2074 Jun, [facility] [place] [facility] [address] [id number] [place] [address]- 8434 Jun, [facility] [place] [facility] [address] [id number] [place] [address]- 8073 Jun, [facility] [place] [facility] [address] [id number] [place] [address]- 3753 10 Jun, 2013 [facility] [place] [facility] [address] [id number] [place] [address]- 0132 Jun, [facility] [place] [facility] [address] [id number] [place] [address]- 7401 Jun, [facility] [place] [facility] [address] [id number] [place] [address]- 0956 Jun, [facility] [place] [facility] [address] [id number] [place] [address]- 7628 Jun, [facility] [place] [facility] [address] [id number] [place] [address]- 7801 Jun, [facility] [place] [facility] [address] [id number] [place] [address]- 3483 Jun, [facility] [place] [facility] [address] [id number] [place] [address]- 0424 Jun, [facility] [place] [facility] [address] [id number] [place] [address]- 6278 Jun, [facility] [place] [facility] [address] [id number] [place] [address]- 3666 07 May, 2013 [facility] [place] [facility] [address] [id number] [place] [address]- 4144 May, [facility] [place] [facility] [address] [id number] [place] [address]- 2085 May, [facility] [place] [facility] [address] [id number] [place] [address]- 8059 May, [facility] [place] [facility] [address] [id number] [place] 7549 Apr, [facility] [place] [facility] [address] [id number] [place] [address]- 2815 Apr, [facility] [place] [facility] [address] [facility] [id number] [place] [address]- 4675 Mar, [facility] [place] [facility] [address] [id number] [place] [address]- 9245 Mar, 2012 [facility] [place] [facility] [address] [id number] [place] [address]- 0566 Mar, [facility] [place] [facility] [address] [id number] [place] [address]- 2546 Mar, [facility] [place] [facility] [address] [id number] [place] [address]- 7406 Mar, [facility] [place] [facility] [address] [id number] [place] [address]- 5700 Mar, [facility] [place] [facility] [address] [id number] [place] [address]- 2208 Mar, [facility] [place] [facility] [address] [id number] [place] [address]- 3951 Mar, [facility] [place] [facility] [address] [id number] [place] [address]- 4465 Mar, [facility] [place] [facility] [address] [id number] [place] [address]- 9921 Mar, [facility] [place] [facility] [address] [id number] [place] [address]- 8778 Mar, [facility] [place] [facility] [address] [facility] [id number] [place] [address]- 9334 Feb, [facility] [place] [facility] [address] [id number] [place] [address]- 9624 Feb, [facility] [place] [facility] [address] [id number] [place] [address] Jan, [facility] [place] [facility] [address] [id number] [place] [address] Jan, [facility] [place] [facility] [address] [id number] [place] [address] Jan, [facility] [place] [facility] [address] [id number] [place] [address] Nov, [facility] [place] [facility] [address] [id number] [place] [address] Oct, [facility] [place] [facility] [address] [id number] [place] [address] Oct, [facility] [place] [facility] [address] [id number] [place] [address] Oct, [facility] [place] [facility] [address] [id number] [place] [address] Oct, [facility] [place] [facility] [address] [id number] [place] [address] Oct, [facility] [place] [facility] [address] [id number] [place] [address] Oct, [facility] [place] [facility] [address] [id number] [place] [address] Oct, [facility] [place] [facility] [address] [id number] [place] [address] Oct, [facility] [place] [facility] [address] [id number] [place] [address] Sep, [facility] [place] [facility] [address] [id number] [place] [address] Sep, [facility] [place] [facility] [address] [id number] [place] [address] Sep, [facility] [place] [facility] [address] [id number] [place] [address] Sep, [facility] [place] [facility] [address] [id number] [place] [address] August, [facility] [place] [facility] [address] [id number] [place] [address] 140[address] August, [facility] [place] [facility] [address] [id number] [place] [address] August, [facility] [place] [facility] [address] [id number] [place] [address] August, [facility] [address] [id number] [place] [address] August, [facility] [place] [facility] [address] [id number] [place] [address] August, [facility] [address] [id number] [place] [address] Jul, [facility] [place] [facility] [address] [id number] [place] [address] May, [facility] [address] [id number] [place] [address] Apr, [facility] [place] [facility] [address] [id number] [place] [address] Apr, [facility] [address] [id number] [place] [address] Apr, [facility] [address] [id number] [place] [address] Mar, [facility] [place] [facility] [address] [id number] [place] [address] Mar, [facility] [address] [facility] [id number] [place] [address] Mar, [facility] [place] [facility] [address] [id number] [place] [address] Mar, [facility] [place] [facility] [address] [id number] [place] [address] Jan, [facility] [place] [facility] [address] [id number] [place] [address] Nov, [facility] [place] [facility] [address] [id number] [place] [address] Sep, [facility] [place] [facility] [address] [id number] [place] [address] August, [facility] [address] [id number] [address] August, [facility] [address] [facility] [id number] [place] [address] Jul, [facility] [address] [facility] [id number] [place] [address] Jul, [facility] [address] [facility] [id number] [place] [address] Jul, [facility] [address] [id number] [place] [address] Jul, [facility] [address] [facility] [id number] [place] [address] Jul, [facility] [address] [id number] [address] Jun, [facility] [id number] [address] Apr, [facility] [address] [id number] [address] Feb, [facility] [facility] [id number] [address] Nov, [facility] [id number] [address] Oct, [facility] [address] [facility] [id number] [address] Feb, [facility] [address] [facility] [id number] [address] August, [facility] [address] [facility] [id number] [address] Jul, [facility] [id number] [address] Jun, 2008 IMMUNIZATIONS No Known Immunizations SOCIAL HISTORY Never Assessed REASON FOR VISIT Lab PLAN OF CARE VITAL SIGNS MEDICATIONS Unknown Medications RESULTS Name Result Date Reference Range STOOL (WBC) 2016-12-20 White Blood Cells (WBC), Stool Final report None Seen Result 1 STOOL (C-DIFF) 2016-12-20 C difficile Toxin Gene KEREN Negative Negative HEMOCCULT (IN HOUSE) 2016-12-14 RESULTS Negative Control + Lot # [id number] Exp date 03/2017 HEMOCCULT (IN HOUSE)-Additional 2016-12-14 RESULTS Negative Control + Lot # [id number] Exp Date 03/2017 PROCEDURES Procedure Date Ordered Result Body Site LAB NOT BILLED BY [facility] Dec 20, 2016 TEST FOR BLOOD, FECES Dec 20, 2016 INSTRUCTIONS MEDICATIONS ADMINISTERED No Known Medications [...]
[2017-09-08 18:18] LABS: ABG BASE EXCESS 0.5 MMOL/L (-2.5-2.5); ABG OXYGEN SATURATION 98 % (94-100); ABG PCO2 44 MMHG (35-45); ABG PH 7.38 (7.37-7.43); ABG PO2 92 MMHG (79-93); ABG TCO2 26.3 MMOL/L (21.0-31.0)
[2017-09-08 18:19] LABS: ALLENS TEST YES-POS; INSPIRED O2 3L; VENTILATOR NO
[2017-09-08] MEDS ORDERED: RT-ALBUTEROL/IPRATROPIUM 3 ML (DUONEB) VIAL INH ONE (18:30)
[2017-09-08] MEDS ORDERED: RT-ALBUTEROL SULF 2.5 MG/3 ML PRE-MIX VIAL INH STA (18:30)
[2017-09-08] MEDS ORDERED: NS IV 1000 ML 1,000 ML IV SCH (18:30)
[2017-09-08 18:42] LABS: BASOPHILS % (AUTO) 0 % (0-10); EOSINOPHILS % (AUTO) 0 % (0-10); HEMATOCRIT 38 % (35-52); HEMOGLOBIN 12.5 G/DL (11.5-16.0); LYMPHOCYTES # (AUTO) 0.5 X 10^3 (1.0-4.0); LYMPHOCYTES % (AUTO) 3 % (12-44); MEAN CORPUSCULAR HEMOGLOBIN 30 PG (25-34); MEAN CORPUSCULAR HGB CONC 33 G/DL (32-36); MEAN CORPUSCULAR VOLUME 91 FL (80-99); MEAN PLATELET VOLUME 9.1 FL (7.4-10.4); MONOCYTES # (AUTO) 1.4 X 10^3 (0.0-1.0); MONOCYTES % (AUTO) 8 % (0-12); NEUTROPHILS # (AUTO) 16.2 X 10^3 (1.8-7.8); NEUTROPHILS % (AUTO) 89 % (42-75); PLATELET COUNT 335 10^3/uL (130-400); RED BLOOD COUNT 4.13 10^6/uL (4.35-5.85); RED CELL DISTRIBUTION WIDTH 12.9 % (10.0-14.5); WHITE BLOOD COUNT 18.1 10^3/uL (4.3-11.0)
--- NOTE | 2017-09-08 18:50 | ED Respiratory ---
General Chief Complaint: Respiratory Problems Stated Complaint: RESPIRATORY ISSUES,TROUBLE BREATHING Nursing Triage Note: Patient reports increasing SOA for 3 to 4 days Source: patient, family Exam Limitations: no limitations History of Present Illness Date Seen by Provider: September 08, 2017 Time Seen by Provider: 18:26 Initial Comments The patient presents with her family to the ER by private conveyance with a chief complaint she is having about 5 days progressively worsening shortness of breath. She has a productive cough of phlegm which is pretty usual for her. She denies any fevers or chills or rash. She has no nausea vomiting or diarrhea. She has a history of COPD for which she uses maintenance inhalers and occasionally she'll use her albuterol. Her last dose was one dose of albuterol today before coming in. She did not feel it helped very much. She is on chronic 10 mg steroids daily and followed by Dr. Ken, pulmonology. She is not having any chest pain or dysuria. She uses oxygen about 2-3 L at home as needed by nasal cannula. Allergies and Home Medications Allergies Coded Allergies: tramadol (Unverified Allergy, Mild, 07/08/13) Penicillins (Verified Allergy, Unknown, 07/08/13) Sulfa (Sulfonamide Antibiotics) (Verified Allergy, Unknown, 07/08/13) sumatriptan (Verified Allergy, Unknown, 07/08/13) Home Medications Albuterol Sulfate 2.5 Mg/3 Ml Vial.neb, 2.5 MG NEB Q6H PRN for WHEEZING, ( Reported) Albuterol Sulfate 18 Gm Hfa.aer.ad, 2 PUFF INH Q4H PRN for SHORTNESS OF BREATH, (Reported) Ascorbate Calcium 500 Mg Tablet, 500 MG PO DAILY, (Reported) Aspirin 81 Mg Tablet.dr, 81 MG PO HS, (Reported) Budesonide/Formoterol Fumarate 10.2 Gm Hfa.aer.ad, 2 PUFF IH BID, (Reported) Cefdinir 300 Mg Capsule, 300 MG PO BID Prescribed by: MAVERICK SALDIVAR on 06/29/17 1122 Cetirizine HCl 10 Mg Tablet, 10 MG PO DAILY, (Reported) Clopidogrel Bisulfate 75 Mg Tablet, 75 MG PO DAILY, (Reported) Desvenlafaxine Succinate 100 Mg Tab.er.24h, 100 MG PO DAILY, (Reported) Ferrous Sulfate 325 Mg Tablet, 650 MG PO DAILY, (Reported) TAKES 2 (325MG) TABLETS Folic Acid 0.4 Mg Tablet, 0.4 MG PO DAILY, (Reported) Ipratropium/Albuterol Sulfate 3 Ml Ampul.neb, 3 ML NEB QID PRN for SHORTNESS OF BREATH, (Reported) Isosorbide Mononitrate 30 Mg Tab.er.24h, 30 MG PO DAILY, (Reported) Lorazepam 1 Mg Tablet, 1 MG PO BID PRN for ANXIETY, (Reported) Magnesium Oxide 250 Mg Tablet, 500 MG PO DAILY, (Reported) Metoprolol Tartrate 25 Mg Tablet, 25 MG PO BID, (Reported) Montelukast Sodium 10 Mg Tablet, 10 MG PO HS, (Reported) LAST FILLED #30 03-13-17 Nitroglycerin 0.4 Mg Tab.subl, 0.4 MG SL UD PRN for CHEST PAIN, (Reported) Prednisone 10 Mg Tab, 60 MG PO DAILY@1200 Prescribed by: MAVERICK SALDIVAR on 06/29/17 1122 Patient Home Medication List Home Medication List Reviewed: Yes Review of Systems Constitutional: No chills, No fever; malaise EENTM: No ear pain, No eye pain, No nose congestion, No nose pain Respiratory: cough, phlegm, short of breath, wheezing Cardiovascular: No chest pain, No Hx of Intervention Gastrointestinal: No abdominal pain, No constipation, No diarrhea, No nausea, No vomiting Genitourinary: No discharge, No dysuria Musculoskeletal: No back pain, No joint pain Skin: No pruritus, No rash Psychiatric/Neurological: Denies Headache, Denies Numbness Past Ftuoder-Wqjzob-Mtptpm Hx Patient Social History Alcohol Use: Denies Use Recreational Drug Use: No Smoking Status: Current Everyday Smoker Type Used: Cigarettes (1.5-2 ppd) Recent Foreign Travel: No Contact w/Someone Who Travel: No Recent Infectious Disease Expo: No Recent Hopitalizations: No Physical Abuse: No Sexual Abuse: No Immunizations Up To Date Tetanus Booster (TDap): Unknown Date of Pneumonia Vaccine: Oct 08, 2002 Date of Influenza Vaccine: Mar 17, 2017 Seasonal Allergies Seasonal Allergies: Yes Past Medical History Surgeries: Yes Adenoidectomy, Breast, Cardiac, Coronary Stent, Hysterectomy, Oophorectomy, Tonsillectomy Respiratory: Yes (wears oxygen) Asthma, Chronic Bronchitis, COPD Currently Using CPAP: No Currently Using BIPAP: No Cardiac: Yes Coronary Artery Disease Neurological: Yes Headaches /Migraines [employer]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, Menopausal Polycystic Kidney Disease Gastrointestinal: Yes Gastroesophageal Reflux, Diverticulosis Musculoskeletal: Yes Arthritis Endocrine: No Cancer: No Psychosocial: Yes Anxiety Nursing Suicide Risk Score: 0 Integumentary: Yes Eczema Blood Disorders: Yes (anemia) Adverse Reaction/Blood Tranf: No Family Medical History No Pertinent Family Hx Physical Exam Vital Signs Vital Signs - First Documented 09/08/17 18:01 Temp 99.0 Pulse 107 Resp 26 B/P (MAP) 141/78 (99) Pulse Ox 95 O2 Delivery Nasal Cannula O2 Flow Rate 3.00 Capillary Refill : Less Than 3 Seconds General Appearance: mild distress, thin Eyes: Bilateral Eye Normal Inspection, Bilateral Eye PERRL, Bilateral Eye EOMI HEENT: PERRL/EOMI, normal ENT inspection, TMs normal, pharynx normal ( oromucosa is dry) Neck: non-tender, supple, normal inspection Respiratory: chest non-tender, respiratory distress ([id number]), decreased breath sounds, accessory muscle use (mild to moderate); No crackles; wheezing Cardiovascular: normal peripheral pulses, regular rate, rhythm, tachycardia ( 100-110) Gastrointestinal: normal bowel sounds, non tender, soft Extremities: normal inspection, no pedal edema, normal capillary refill Neurologic/Psychiatric: alert, normal mood/affect, oriented x 3 Skin: normal color, warm/dry Focused Exam Lactate Level 09/08/17 18:44: Lactic Acid Level 0.91 Lactic Acid Level Laboratory Tests Test 09/08/17 18:44 Lactic Acid Level 0.91 MMOL/L (0.50-2.00) Progress/Results/Core Measures Suspected Sepsis Recent Fever Within 48 Hours: No Infection Criteria Present: None New/Unexplained Altered Menta: No Sepsis Screen: No Definite Risk SIRS Temperature:99.0 Pulse: 107 Respiratory Rate: 26 Laboratory Tests 09/08/17 18:05: White Blood Count 18.1H Blood Pressure 141 /78 Mean: 99 09/08/17 18:44: Lactic Acid Level 0.91 Laboratory Tests 09/08/17 18:05: Creatinine 0.64, Platelet Count 335, Total Bilirubin 0.7 Results/Orders Lab Results Laboratory Tests Test 09/08/17 18:05 09/08/17 18:12 09/08/17 18:44 Range/Units White Blood Count 18.1 H 4.3-11.0 10^3/uL Red Blood Count 4.13 L 4.35-5.85 10^6/uL Hemoglobin 12.5 11.5-16.0 G/DL Hematocrit 38 35-52 % Mean Corpuscular Volume 91 80-99 FL Mean Corpuscular Hemoglobin 30 25-34 PG Mean Corpuscular Hemoglobin Concent 33 32-36 G/DL Red Cell Distribution Width 12.9 10.0-14.5 % Platelet Count 335 130-400 10^3/uL Mean Platelet Volume 9.1 7.4-10.4 FL Neutrophils (%) (Auto) 89 H 42-75 % Lymphocytes (%) (Auto) 3 L 12-44 % Monocytes (%) (Auto) 8 0-12 % Eosinophils (%) (Auto) 0 0-10 % Basophils (%) (Auto) 0 0-10 % Neutrophils # (Auto) 16.2 H 1.8-7.8 X 10^3 Lymphocytes # (Auto) 0.5 L 1.0-4.0 X 10^3 Monocytes # (Auto) 1.4 H 0.0-1.0 X 10^3 Eosinophils # (Auto) 0.0 0.0-0.3 10^3/uL Basophils # (Auto) 0.0 0.0-0.1 10^3/uL Neutrophils % (Manual) 80 % Lymphocytes % (Manual) 5 % Monocytes % (Manual) 9 % Band Neutrophils 6 % Blood Morphology Comment NORMAL Sodium Level 132 L 135-145 MMOL/L Potassium Level 4.5 3.6-5.0 MMOL/L Chloride Level 99 98-107 MMOL/L Carbon Dioxide Level 23 21-32 MMOL/L Anion Gap 10 5-14 MMOL/L Blood Urea Nitrogen 11 7-18 MG/DL Creatinine 0.64 0.60-1.30 MG/DL Estimat Glomerular Filtration Rate > 60 BUN/Creatinine Ratio 17 Glucose Level 137 H 70-105 MG/DL Calcium Level 9.5 8.5-10.1 MG/DL Magnesium Level 1.8 1.8-2.4 MG/DL Total Bilirubin 0.7 0.1-1.0 MG/DL Aspartate Amino Transf (AST/SGOT) 15 5-34 U/L Alanine Aminotransferase (ALT/SGPT) 10 0-55 U/L Alkaline Phosphatase 57 40-136 U/L C-Reactive Protein High Sensitivity 11.24 H 0.00-0.50 MG/DL Total Protein 6.8 6.4-8.2 GM/DL Albumin 4.1 3.2-4.5 GM/DL Blood Gas Puncture Site LT RAD Blood Gas Patient Temperature 99.0 Arterial Blood pH 7.38 7.37-7.43 Arterial Blood Partial Pressure CO2 44 35-45 MMHG Arterial Blood Partial Pressure O2 92 79-93 MMHG Arterial Blood HCO3 25 23-27 MMOL/L Arterial Blood Total CO2 26.3 21.0-31.0 MMOL/L Arterial Blood Oxygen Saturation 98 94-100 % Arterial Blood Base Excess 0.5 -2.5-2.5 MMOL/L John Test YES-POS Blood Gas Ventilator Setting NO Blood Gas Inspired Oxygen 3L Lactic Acid Level 0.91 0.50-2.00 MMOL/L My Orders Orders - JUAN MARTINEZ Cbc With Automated Diff (09/08/17 18:30) Comprehensive Metabolic Panel (09/08/17 18:30) Hs C Reactive Protein (09/08/17 18:30) Lactic Acid Analyzer (09/08/17 18:30) Blood Culture (09/08/17 18:30) Sputum Culture (09/08/17 18:30) Chest Pa/Lat (2 View) (09/08/17 18:30) Albuterol Pre-Mix Nebs (Rt) (Proventil (09/08/17 18:30) Albuterol/Ipra Inhalation Soln (Duoneb I (09/08/17 18:30) Saline Lock/Iv-Start (09/08/17 18:30) Ns Iv 1000 Ml (Sodium Chloride 0.9%) (09/08/17 18:30) Svn Small Volume Nebulizer (09/08/17 18:30) Manual Differential (09/08/17 18:05) Methylprednisolone Sod Succ (Solu-Medrol (09/08/17 19:00) Cefepime Injection (Maxipime Injection) (09/08/17 19:00) Potassium Cl 10meq/50ml Ivpb (Kcl 10 Meq (09/08/17 19:00) Continuous Ekg Monitoring (09/08/17 18:53) Ekg Tracing (09/08/17 18:53) Magnesium (5/25/18 18:53) Medications Given in ED Current Medications Medications Dose Ordered Sig/Tyrone Route Start Time Stop Time Status Last Admin Dose Admin Albuterol/ Ipratropium 3 ml ONCE ONCE INH 09/08/17 18:30 09/08/17 18:32 DC 09/08/17 19:08 3 ML Methylprednisolone Sodium Succinate 125 mg ONCE ONCE IVP 09/08/17 19:00 09/08/17 19:01 DC 09/08/17 19:08 125 MG Potassium Chloride 50 ml @ 50 mls/hr ONCE ONCE IV 09/08/17 19:00 09/08/17 19:59 09/08/17 19:08 50 MLS/HR Vital Signs/I&O 09/08/17 18:01 Temp 99.0 Pulse 107 Resp 26 B/P (MAP) 141/78 (99) Pulse Ox 95 O2 Delivery Nasal Cannula O2 Flow Rate 3.00 Capillary Refill : Less Than 3 Seconds Blood Pressure Mean: 99 Progress Note : Time: 18:48 Progress Note The patient is satting in the mid 90s on 3 L per nasal cannula in the ER using 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 Most consistent with COPD with exacerbation. We'll obtain chest x-ray, CRP and labs looking for evidence of a pneumonia. Her initial CBC shows a white count of 18, 000 which is probably not due to her chronic steroid use. Because of her difficulty breathing she is probably going to require inpatient therapy. We have given her a DuoNeb as well as 5 mg albuterol and then will reassess her. We 'll give her 125 mg of burst dose Solu-Medrol via IV. ABG is unremarkable. ECG Initial ECG Impression Date: September 08, 2017 Initial ECG Impression Time: 18:05 Initial ECG Rate: 107 Initial ECG Rhythm: Normal Sinus Initial ECG Intervals: Normal Initial ECG Impression: Normal, Nonspecific Changes Comment Respiratory effect. No acute ST elevation or depression. Diagnostic Imaging Diagonstic Imaging: Xray Plain Films/CT/US/NM/MRI: chest (2v) Comments NAME: SKYLER MIRELES [facility] REC#: [id number] PHYSICIAN: JUAN MARTINEZ MD CC: ANTOINE LORD MD; JUAN MARTINEZ Page 1 of [address] [facility], [facility]. [place], [place] CC: ANTOINE LORD MD; JUAN MARTINEZ Page 1 of 1 RADIOLOGY REPORT NAME: SKYLER MIRELES [facility] REC#: [id number] PT STATUS: REG ER : 1950 PHYSICIAN: JUAN MARTINEZ MD ADMIT DATE: 09/08/17/ER Signed Date of Exam: 09/08/17 CHEST PA/LAT (2 VIEW) INDICATION: Increased short of air. FINDINGS: PA and lateral chest shows the heart size and vascularity to be normal. There is obstructive airway disease with no mass or infiltrate seen. There is no pleural effusion. IMPRESSION: COPD. No acute abnormality is seen. There is no change from 06/27/2017. Dictated by: Dictated on workstation # [id number] Dict: 09/08/17 1855 Trans: 09/08/171902 Interpreted by: ANTOINE LORD MD Electronically signed by: ANTOINE LORD MD 09/08/173 Reviewed: Reviewed by Me Departure Communication (Admissions) Time/Spoke to Admitting Phy: 19:28 Discussed the case with Dr. Razo. She will see the patient. Impression Primary Impression: COPD with acute exacerbation Disposition: ADMITTED INPATIENT Condition: Stable Admissions Decision to Admit Reason: Admit from ER (General) Decision to Admit/Date: September 08, 2017 Time/Decision to Admit Time: 19:29 Departure-Patient Inst. Referrals: CASEY SIMPSON (PCP/Family) Primary Care Physician Copy Copies To 1: LEANN KEN DO; ANA FISCHER TITUS J September 08, 2017 18:50
[2017-09-08 18:56] LABS: ALANINE AMINOTRANSFERASE 10 U/L (0-55); ALBUMIN 4.1 GM/DL (3.2-4.5); ALKALINE PHOSPHATASE 57 U/L (40-136); BILIRUBIN,TOTAL 0.7 MG/DL (0.1-1.0); BUN/CREATININE RATIO 17; CALCIUM 9.5 MG/DL (8.5-10.1); CARBON DIOXIDE 23 MMOL/L (21-32); CHLORIDE 99 MMOL/L (98-107); CREATININE SERUM 0.64 MG/DL (0.60-1.30); GFR ESTIMATED > 60; GLUCOSE 137 MG/DL (70-105); POTASSIUM 4.5 MMOL/L (3.6-5.0); SODIUM 132 MMOL/L (135-145); TOTAL PROTEIN 6.8 GM/DL (6.4-8.2)
--- NOTE | 2017-09-08 18:57 | Diagnostic Imaging Report ---
INDICATION: Increased short of air. FINDINGS: PA and lateral chest shows the heart size and vascularity to be normal. There is obstructive airway disease with no mass or infiltrate seen. There is no pleural effusion. IMPRESSION: COPD. No acute abnormality is seen. There is no change from 06/27/2017. Dictated by: Dictated on workstation # [id number]
[2017-09-08] MEDS ORDERED: POTASSIUM CL 10MEQ/50ML IVPB 50 ML IV ONE (19:00)
[2017-09-08] MEDS ORDERED: methylPREDNISolone 125 MG (Solu-MEDROL) VIAL IVP ONE (19:00)
[2017-09-08] MEDS ORDERED: CEFEPIME INJECTION 2,000 MG in NS (IVPB) 50 ML IV ONE (19:00)
[2017-09-08 19:09] LABS: BAND NEUTROPHILS 6 %; LYMPHOCYTES % (MANUAL) 5 %; MONOCYTES % (MANUAL) 9 %; NEUTROPHILS % (MANUAL) 80 %; RBC MORPH NORMAL
[2017-09-08] MEDS ORDERED: LORazepam INJ 2 MG/ML (ATIVAN) VIAL IVP ONE (19:45)
[2017-09-08 20:20] VITALS: BP 168/76
[2017-09-08] MEDS ORDERED: AZITHROMYCIN 500 MG/NS 250 ML IVPB IV ONE ×2 (21:30)
[2017-09-08] MEDS ORDERED: RT-ALBUTEROL/IPRATROPIUM 3 ML (DUONEB) VIAL ONE (21:48)
[2017-09-08 21:57] VITALS: BP 168/76
[2017-09-08] MEDS: RT-ALBUTEROL/IPRATROPIUM 3 ML (DUONEB) VIAL INH PRN (21:57)
[2017-09-08 22:40] LABS: ABG BASE EXCESS 0.5 MMOL/L (-2.5-2.5); ABG OXYGEN SATURATION 98 % (94-100); ABG PCO2 54 MMHG (35-45); ABG PO2 101 MMHG (79-93); ABG TCO2 27.6 MMOL/L (21.0-31.0); ALLENS TEST YES-POS
[2017-09-08 22:41] LABS: INSPIRED O2 4L; PATIENT TEMP 99.2; VENTILATOR NO
[2017-09-09] VITALS (41 sets, daily range): BP systolic 109–175; BP diastolic 70–122
[2017-09-09] MEDS ORDERED: methylPREDNISolone 125 MG (Solu-MEDROL) VIAL ONE (00:14)
[2017-09-09] MEDS: methylPREDNISolone 125 MG (Solu-MEDROL) VIAL IVP SCH ×5 (00:22→23:13)
[2017-09-09] MEDS ORDERED: RT-ALBUTEROL/IPRATROPIUM 3 ML (DUONEB) VIAL ONE (02:06)
[2017-09-09] MEDS: RT-ALBUTEROL/IPRATROPIUM 3 ML (DUONEB) VIAL INH SCH ×6 (02:14→22:25)
[2017-09-09 04:12] LABS: ABG BASE EXCESS -4.6 MMOL/L (-2.5-2.5); ABG OXYGEN SATURATION 99 % (94-100); ABG PCO2 63 MMHG (35-45); ABG PO2 128 MMHG (79-93); ABG TCO2 24.7 MMOL/L (21.0-31.0)
[2017-09-09 04:13] LABS: ALLENS TEST YES-POS; INSPIRED O2 40% BIPAP; VENTILATOR NO
[2017-09-09 04:14] LABS: PATIENT TEMP 97.3
[2017-09-09 04:16] LABS: ABG PH 7.18 (7.37-7.43)
[2017-09-09] MEDS: LORazepam 1 MG (ATIVAN) TAB PO PRN ×2 (04:26→17:09)
[2017-09-09 04:33] LABS: BASOPHILS % (AUTO) 0 % (0-10); EOSINOPHILS % (AUTO) 0 % (0-10); HEMATOCRIT 38 % (35-52); HEMOGLOBIN 12.5 G/DL (11.5-16.0); LYMPHOCYTES # (AUTO) 0.3 X 10^3 (1.0-4.0); LYMPHOCYTES % (AUTO) 3 % (12-44); MEAN CORPUSCULAR HEMOGLOBIN 30 PG (25-34); MEAN CORPUSCULAR HGB CONC 33 G/DL (32-36); MEAN CORPUSCULAR VOLUME 92 FL (80-99); MEAN PLATELET VOLUME 8.9 FL (7.4-10.4); MONOCYTES # (AUTO) 0.1 X 10^3 (0.0-1.0); MONOCYTES % (AUTO) 1 % (0-12); NEUTROPHILS # (AUTO) 12.5 X 10^3 (1.8-7.8); NEUTROPHILS % (AUTO) 97 % (42-75); PLATELET COUNT 334 10^3/uL (130-400); RED CELL DISTRIBUTION WIDTH 12.7 % (10.0-14.5)
[2017-09-09] MEDS ORDERED: LORazepam INJ 2 MG/ML (ATIVAN) VIAL ONE ×2 (04:55→22:56)
[2017-09-09] MEDS ORDERED: LORazepam INJ 2 MG/ML (ATIVAN) VIAL IVP ONE ×2 (05:00→23:00)
[2017-09-09 05:03] LABS: ALANINE AMINOTRANSFERASE 12 U/L (0-55); ALBUMIN 4.2 GM/DL (3.2-4.5); ALKALINE PHOSPHATASE 62 U/L (40-136); BILIRUBIN,TOTAL 0.4 MG/DL (0.1-1.0); BUN/CREATININE RATIO 17; CALCIUM 9.6 MG/DL (8.5-10.1); CARBON DIOXIDE 20 MMOL/L (21-32); CHLORIDE 104 MMOL/L (98-107); CREATININE SERUM 0.76 MG/DL (0.60-1.30); GFR ESTIMATED > 60; GLUCOSE 186 MG/DL (70-105); MAGNESIUM 2.3 MG/DL (1.8-2.4); PHOSPHORUS 4.3 MG/DL (2.3-4.7); POTASSIUM 4.6 MMOL/L (3.6-5.0); SODIUM 139 MMOL/L (135-145); TOTAL PROTEIN 7.1 GM/DL (6.4-8.2)
[2017-09-09] MEDS: POTASSIUM CL 10MEQ/50ML IVPB 50 ML IV SCH (05:41)
[2017-09-09] MEDS: KCL 20 MEQ TAB (K-DUR) PO SCH (05:42)
[2017-09-09] MEDS: MAGNESIUM 1 GM/100 ML IVPB 100 ML IV SCH (05:42)
[2017-09-09 10:29] LABS: ABG BASE EXCESS -0.5 MMOL/L (-2.5-2.5); ABG OXYGEN SATURATION 99 % (94-100); ABG PCO2 49 MMHG (35-45); ABG PO2 121 MMHG (79-93); ABG TCO2 26.5 MMOL/L (21.0-31.0)
[2017-09-09 10:31] LABS: ABG PH 7.32 (7.37-7.43); ALLENS TEST YES-POS; INSPIRED O2 35%; PATIENT TEMP 97.3; VENTILATOR NO
[2017-09-09] MEDS: ASPIRIN 81 MG CHEW (CHILDREN'S ASA) PO SCH (10:53)
[2017-09-09] MEDS: meTOprolol TARTRATE 25 MG (LOPRESSOR) TABLET PO SCH ×2 (10:53→20:23)
[2017-09-09] MEDS: CLOPIDOGREL 75 MG (PLAVIX) TABLET PO SCH (10:53)
--- NOTE | 2017-09-09 13:42 | Diagnostic Imaging Report ---
Portable erect AP chest at 319 hours. INDICATION: Respiratory distress. FINDINGS: The heart size is within normal limits and stable when compared to 09/08/2017. The lungs are hyperexpanded consistent with COPD. There is still no sign of failure, pneumonia or pleural effusion. Mediastinum is not widened. The osseous structures are intact. IMPRESSION: Stable chest. There has been no adverse change since the prior exam. Dictated by: Dictated on workstation # [id number]
[2017-09-09] MEDS ORDERED: FLUT1BLS3 IH (14:24)
--- NOTE | 2017-09-09 14:32 | History & Physicial (CHS) ---
HPI History of Present Illness: 66 yo female came to ER at [facility] after increasing shortness of breath for last 4-5 days. She has not had fever or productive cough, just couldn 't catch her air. She was admitted in June for similar issues and is on supplemental oxygen chronically. Source: patient, family Exam Limitations: clinical condition Date seen by provider: September 09, 2017 Time Seen by Provider: 10:18 Attending Physician Denisha Razo MD PCP Reny Atkinson Consult Date of Admission September 08, 2017 at 7:42 pm Home Medications Home Medications Reviewed patient Home Medication Reconciliation performed by pharmacy medication reconciliations platform power technician and/or nursing. Patients Allergies have been reviewed. Allergies Coded Allergies: tramadol (Unverified Allergy, Mild, 07/08/13) Penicillins (Verified Allergy, Unknown, 07/08/13) Sulfa (Sulfonamide Antibiotics) (Verified Allergy, Unknown, 07/08/13) sumatriptan (Verified Allergy, Unknown, 07/08/13) RVL-Pxyeyh-Dxqcmo Hx Patient Social History Alcohol Use: Denies Use Recreational Drug Use: No Smoking Status: Current Everyday Smoker Type Used: Cigarettes Recent Foreign Travel: No Contact w/other who traveled: No Recent Hopitalizations: No Recent Infectious Disease Expo: No Physical Abuse Screen: No Sexual Abuse: No Immunizations Up To Date Tetanus Booster (TDap): Unknown Date of Pneumonia Vaccine: Oct 08, 2002 Date of Influenza Vaccine: Mar 17, 2017 Past Medical History COPD Anxiety Tobacco Abuse Dependence on Supplemental Oxygen Pulmonary Emphysema Memory Loss IBS with Diarrhea Depression Anemia - Iron Deficiecy CAD HTN Essential Tremor Family Medical History Significant Family History: No Pertinent Family Hx Review of Systems (CHC) Constitutional: see HPI, other (limited, patient on bipap and unable to answer many questions) EENTM: no symptoms reported Respiratory: see HPI Reviewed Test Results Reviewed Test Results Lab Laboratory Tests Test 09/08/17 18:05 09/08/17 18:12 09/08/17 18:44 09/08/17 22:29 Range/Units White Blood Count 18.1 H 4.3-11.0 10^3/uL Red Blood Count 4.13 L 4.35-5.85 10^6/uL Hemoglobin 12.5 11.5-16.0 G/DL Hematocrit 38 35-52 % Mean Corpuscular Volume 91 80-99 FL Mean Corpuscular Hemoglobin 30 25-34 PG Mean Corpuscular Hemoglobin Concent 33 32-36 G/DL Red Cell Distribution Width 12.9 10.0-14.5 % Platelet Count 335 130-400 10^3/uL Mean Platelet Volume 9.1 7.4-10.4 FL Neutrophils (%) (Auto) 89 H 42-75 % Lymphocytes (%) (Auto) 3 L 12-44 % Monocytes (%) (Auto) 8 0-12 % Eosinophils (%) (Auto) 0 0-10 % Basophils (%) (Auto) 0 0-10 % Neutrophils # (Auto) 16.2 H 1.8-7.8 X 10^3 Lymphocytes # (Auto) 0.5 L 1.0-4.0 X 10^3 Monocytes # (Auto) 1.4 H 0.0-1.0 X 10^3 Eosinophils # (Auto) 0.0 0.0-0.3 10^3/uL Basophils # (Auto) 0.0 0.0-0.1 10^3/uL Neutrophils % (Manual) 80 % Lymphocytes % (Manual) 5 % Monocytes % (Manual) 9 % Band Neutrophils 6 % Blood Morphology Comment NORMAL Sodium Level 132 L 135-145 MMOL/L Potassium Level 4.5 3.6-5.0 MMOL/L Chloride Level 99 98-107 MMOL/L Carbon Dioxide Level 23 21-32 MMOL/L Anion Gap 10 5-14 MMOL/L Blood Urea Nitrogen 11 7-18 MG/DL Creatinine 0.64 0.60-1.30 MG/DL Estimat Glomerular Filtration Rate > 60 BUN/Creatinine Ratio 17 Glucose Level 137 H 70-105 MG/DL Calcium Level 9.5 8.5-10.1 MG/DL Magnesium Level 1.8 1.8-2.4 MG/DL Total Bilirubin 0.7 0.1-1.0 MG/DL Aspartate Amino Transf (AST/SGOT) 15 5-34 U/L Alanine Aminotransferase (ALT/SGPT) 10 0-55 U/L Alkaline Phosphatase 57 40-136 U/L C-Reactive Protein High Sensitivity 11.24 H 0.00-0.50 MG/DL Total Protein 6.8 6.4-8.2 GM/DL Albumin 4.1 3.2-4.5 GM/DL Blood Gas Puncture Site LT RAD R RAD Blood Gas Patient Temperature 99.0 99.2 Arterial Blood pH 7.38 7.30 *L 7.37-7.43 Arterial Blood Partial Pressure CO2 44 54 H 35-45 MMHG Arterial Blood Partial Pressure O2 92 101 H 79-93 MMHG Arterial Blood HCO3 25 26 23-27 MMOL/L Arterial Blood Total CO2 26.3 27.6 21.0-31.0 MMOL/L Arterial Blood Oxygen Saturation 98 98 94-100 % Arterial Blood Base Excess 0.5 0.5 -2.5-2.5 MMOL/L John Test YES-POS YES-POS Blood Gas Ventilator Setting NO NO Blood Gas Inspired Oxygen 3L 4L Lactic Acid Level 0.91 0.50-2.00 MMOL/L Test 09/09/17 04:05 09/09/17 04:28 09/09/17 10:20 Range/Units Blood Gas Puncture Site R RAD LT RAD Blood Gas Patient Temperature 97.3 97.3 Arterial Blood pH 7.18 *L 7.32 *L 7.37-7.43 Arterial Blood Partial Pressure CO2 63 H 49 H 35-45 MMHG Arterial Blood Partial Pressure O2 128 H 121 H 79-93 MMHG Arterial Blood HCO3 23 25 23-27 MMOL/L Arterial Blood Total CO2 24.7 26.5 21.0-31.0 MMOL/L Arterial Blood Oxygen Saturation 99 99 94-100 % Arterial Blood Base Excess -4.6 L -0.5 -2.5-2.5 MMOL/L John Test YES-POS YES-POS Blood Gas Ventilator Setting NO NO Blood Gas Inspired Oxygen 40% BIPAP 35% White Blood Count 13.0 H 4.3-11.0 10^3/uL Red Blood Count 4.10 L 4.35-5.85 10^6/uL Hemoglobin 12.5 11.5-16.0 G/DL Hematocrit 38 35-52 % Mean Corpuscular Volume 92 80-99 FL Mean Corpuscular Hemoglobin 30 25-34 PG Mean Corpuscular Hemoglobin Concent 33 32-36 G/DL Red Cell Distribution Width 12.7 10.0-14.5 % Platelet Count 334 130-400 10^3/uL Mean Platelet Volume 8.9 7.4-10.4 FL Neutrophils (%) (Auto) 97 H 42-75 % Lymphocytes (%) (Auto) 3 L 12-44 % Monocytes (%) (Auto) 1 0-12 % Eosinophils (%) (Auto) 0 0-10 % Basophils (%) (Auto) 0 0-10 % Neutrophils # (Auto) 12.5 H 1.8-7.8 X 10^3 Lymphocytes # (Auto) 0.3 L 1.0-4.0 X 10^3 Monocytes # (Auto) 0.1 0.0-1.0 X 10^3 Eosinophils # (Auto) 0.0 0.0-0.3 10^3/uL Basophils # (Auto) 0.0 0.0-0.1 10^3/uL Sodium Level 139 135-145 MMOL/L Potassium Level 4.6 3.6-5.0 MMOL/L Chloride Level 104 98-107 MMOL/L Carbon Dioxide Level 20 L 21-32 MMOL/L Anion Gap 15 H 5-14 MMOL/L Blood Urea Nitrogen 13 7-18 MG/DL Creatinine 0.76 0.60-1.30 MG/DL Estimat Glomerular Filtration Rate > 60 BUN/Creatinine Ratio 17 Glucose Level 186 H 70-105 MG/DL Calcium Level 9.6 8.5-10.1 MG/DL Phosphorus Level 4.3 2.3-4.7 MG/DL Magnesium Level 2.3 1.8-2.4 MG/DL Total Bilirubin 0.4 0.1-1.0 MG/DL Aspartate Amino Transf (AST/SGOT) 15 5-34 U/L Alanine Aminotransferase (ALT/SGPT) 12 0-55 U/L Alkaline Phosphatase 62 40-136 U/L Total Protein 7.1 6.4-8.2 GM/DL Albumin 4.2 3.2-4.5 GM/DL Radiology CXR 09/08 with changes of COPD, no acute findings Physical Exam-(CHC) Physical Exam Vital Signs VS - Last 72 Hours, by Label 09/08/17 09/08/17 09/08/17 09/08/17 18:01 19:53 20:00 20:20 Temp 99.0 98.8 97.8 Pulse 107 115 120 Resp 26 30 24 B/P (MAP) 141/78 (99) 130/79 168/76 (106) Pulse Ox 95 97 94 O2 Delivery Nasal Cannula Nasal Cannula Nasal Cannula Nasal Cannula O2 Flow Rate 3.00 3.00 4.00 4.00 5/25/18 09/08/17 09/08/17 09/09/17 21:57 21:57 22:40 00:54 Temp 97.8 Pulse 119 110 Resp 20 B/P (MAP) 135/70 (91) Pulse Ox 96 96 98 96 O2 Delivery Nasal Cannula Vapotherm Nasal Cannula O2 Flow Rate 4.00 30.00 4.00 FiO2 50 09/09/17 09/09/17 09/09/17 09/09/17 02:50 02:56 03:00 03:01 Temp 97.6 Pulse 111 111 105 Resp 20 20 B/P (MAP) 144/89 (107) 148/92 (110) Pulse Ox 100 100 O2 Delivery NIV Bilevel NIV Bilevel NIV Bilevel O2 Flow Rate 40.00 40.00 FiO2 40 09/09/17 09/09/17 09/09/17 09/09/17 03:15 03:30 03:45 04:00 Pulse 105 100 100 Resp 23 22 17 B/P (MAP) 121/85 (97) 125/77 (93) 115/77 (90) Pulse Ox 99 99 96 O2 Delivery NIV Bilevel NIV Bilevel NIV Bilevel NIV Bilevel O2 Flow Rate 40.00 40.00 40.00 FiO2 40 09/09/17 09/09/17 09/09/17 09/09/17 04:00 04:05 04:15 04:30 Pulse 143 127 118 Resp 22 19 25 B/P (MAP) 175/122 (139) 147/115 (126) 134/80 (98) Pulse Ox 98 95 96 O2 Delivery NIV Bilevel Vapotherm Vapotherm Vapotherm O2 Flow Rate 40.00 50.00 50.00 50.00 20.00 30.00 30.00 09/09/17 09/09/17 09/09/17 09/09/17 04:45 05:00 05:05 05:15 Pulse 117 114 116 113 Resp 25 22 B/P (MAP) 128/83 (98) 118/87 (97) 116/79 (91) Pulse Ox 97 98 97 98 O2 Delivery Vapotherm Vapotherm NIV Bilevel NIV Bilevel O2 Flow Rate 50.00 50.00 35.00 35.00 30.00 30.00 09/09/17 09/09/17 09/09/17 09/09/17 06:00 06:15 06:30 06:41 Pulse 109 105 106 107 Resp 21 19 19 20 B/P (MAP) 124/81 (95) 124/80 (95) 118/81 (93) Pulse Ox 97 97 96 96 O2 Delivery NIV Bilevel NIV Bilevel NIV Bilevel O2 Flow Rate 35.00 35.00 35.00 35.00 09/09/17 09/09/17 09/09/17 09/09/17 06:45 07:00 08:28 08:31 Temp 97.1 Pulse 106 114 Resp 19 B/P (MAP) 123/76 (92) Pulse Ox 96 O2 Delivery NIV Bilevel NIV Bilevel NIV Bilevel O2 Flow Rate 35.00 35.00 FiO2 35 09/09/17 09/09/17 09/09/17 09/09/17 08:38 10:45 11:54 12:20 Pulse 114 112 109 Resp 22 23 20 Pulse Ox 93 97 97 O2 Delivery NIV Bilevel O2 Flow Rate 35.00 35.00 30.00 FiO2 30 09/09/17 09/09/17 09/09/17 12:20 13:00 14:07 Temp 97.1 Pulse 95 91 Resp 20 B/P (MAP) Pulse Ox 94 O2 Delivery NIV Bilevel O2 Flow Rate 30.00 Capillary Refill : Less Than 3 Seconds General Appearance: WD/WN, moderate distress Respiratory: decreased breath sounds, accessory muscle use, other (bipap in place) Cardiovascular: no murmur, tachycardia Gastrointestinal: normal bowel sounds Neurologic/Psychiatric: alert Skin: warm/dry, pallor Assessment/Plan Assessment/Plan Admission Status: Inpatient Order (span 2 midnights) Reason for Inpatient Admission: Patient with severe COPD exacerbation requiring non-invasive ventilation with concern for possible need for invasive ventilation. (1) Acute on chronic respiratory failure with hypoxia and hypercapnia Status: Acute Assessment & Plan: Blood gas on admission normal, requires continuous supplemental oxygen at baseline, however overnight had worsening respiratory distress with development of acute on chronic hypercapneic respiratory failure requiring bi-pap and transfer to ICU. ABG this am improved with bipap, continue. Discussed her wishes if she worsens on bipap, and she does not know if she would be willing to be intubated, recommend she discuss with her family as this is a real concern for this admission. (2) COPD exacerbation Status: Acute Assessment & Plan: Solumedrol 125 mg q6, azithromycin, duonebs, RT protocol. (3) Depression Status: Chronic Assessment & Plan: Resume home Pristiq Qualifiers: (4) HTN (hypertension) Status: Chronic Assessment & Plan: Resume home metoprolol and isosorbide. Qualifiers: Qualified Codes: I10 - Essential (primary) hypertension (5) Anxiety Status: Chronic Assessment & Plan: Continue home ativan. May need extra doses to tolerate bipap. (6) Coronary artery disease Status: Chronic Assessment & Plan: Resume home Plavix and asa. (7) DVT prophylaxis Status: Acute Assessment & Plan: Enoxaparin Clinical Quality Measures DVT/VTE Risk/Contraindication: Risk Factor Score Per Nursin RFS Level Per Nursing on Admit: 4+=Very High Copy Copies To 1: KENIA Nieves BETHANY N MD September 09, 2017 2:32 pm
[2017-09-09] MEDS: ENOXAPARIN 40 MG/0.4 ML (LOVENOX) SYR SQ SCH (16:25)
[2017-09-09] MEDS: MONTELUKAST 10 MG (SINGULAIR) TAB PO SCH (20:24)
[2017-09-09] MEDS: AZITHROMYCIN 250 MG/NS 250 ML IVPB IV SCH ×2 (20:25)
[2017-09-09] MEDS: DEXMEDETOMIDINE 400 MCG/NS 100 ML IV DRIP IV SCH ×2 (23:55)
[2017-09-09] MEDS ORDERED: NS (IVPB) 50 ML ONE (23:55)
[2017-09-10] VITALS (26 sets, daily range): BP systolic 65–134; BP diastolic 55–86
[2017-09-10] MEDS: RT-ALBUTEROL/IPRATROPIUM 3 ML (DUONEB) VIAL INH SCH ×6 (02:12→22:33)
[2017-09-10 03:24] LABS: ABG OXYGEN SATURATION 99 % (94-100); ABG PCO2 48 MMHG (35-45); ABG PH 7.35 (7.37-7.43); ABG PO2 112 MMHG (79-93); ABG TCO2 27.8 MMOL/L (21.0-31.0)
[2017-09-10 03:25] LABS: ALLENS TEST YES-POS; INSPIRED O2 30% BIPAP; PATIENT TEMP 96.1; VENTILATOR NO
[2017-09-10 03:40] LABS: BASOPHILS % (AUTO) 0 % (0-10); EOSINOPHILS % (AUTO) 0 % (0-10); HEMATOCRIT 35 % (35-52); HEMOGLOBIN 11.6 G/DL (11.5-16.0); LYMPHOCYTES # (AUTO) 0.4 X 10^3 (1.0-4.0); LYMPHOCYTES % (AUTO) 3 % (12-44); MEAN CORPUSCULAR HEMOGLOBIN 31 PG (25-34); MEAN CORPUSCULAR HGB CONC 33 G/DL (32-36); MEAN CORPUSCULAR VOLUME 93 FL (80-99); MEAN PLATELET VOLUME 9.7 FL (7.4-10.4); MONOCYTES # (AUTO) 0.8 X 10^3 (0.0-1.0); MONOCYTES % (AUTO) 6 % (0-12); NEUTROPHILS # (AUTO) 12.7 X 10^3 (1.8-7.8); NEUTROPHILS % (AUTO) 92 % (42-75); PLATELET COUNT 319 10^3/uL (130-400); RED CELL DISTRIBUTION WIDTH 12.5 % (10.0-14.5); WHITE BLOOD COUNT 13.8 10^3/uL (4.3-11.0)
[2017-09-10 04:06] LABS: BUN/CREATININE RATIO 48; CALCIUM 9.5 MG/DL (8.5-10.1); CARBON DIOXIDE 24 MMOL/L (21-32); CHLORIDE 107 MMOL/L (98-107); CREATININE SERUM 0.67 MG/DL (0.60-1.30); GFR ESTIMATED > 60; GLUCOSE 151 MG/DL (70-105); MAGNESIUM 2.4 MG/DL (1.8-2.4); PHOSPHORUS 2.7 MG/DL (2.3-4.7); POTASSIUM 4.5 MMOL/L (3.6-5.0); SODIUM 140 MMOL/L (135-145)
[2017-09-10] MEDS: methylPREDNISolone 125 MG (Solu-MEDROL) VIAL IVP SCH ×3 (06:06→18:07)
[2017-09-10] MEDS: DEXMEDETOMIDINE 400 MCG/NS 100 ML IV DRIP IV SCH ×2 (06:08)
[2017-09-10] MEDS: KCL 20 MEQ TAB (K-DUR) PO SCH (06:10)
[2017-09-10] MEDS: POTASSIUM CL 10MEQ/50ML IVPB 50 ML IV SCH (06:10)
[2017-09-10] MEDS: MAGNESIUM 1 GM/100 ML IVPB 100 ML IV SCH (06:10)
[2017-09-10] MEDS: CLOPIDOGREL 75 MG (PLAVIX) TABLET PO SCH (08:19)
[2017-09-10] MEDS: meTOprolol TARTRATE 25 MG (LOPRESSOR) TABLET PO SCH ×2 (08:19→20:20)
[2017-09-10] MEDS: LORATADINE (CLARITIN) 10 MG TAB PO SCH (08:19)
[2017-09-10] MEDS: ISOSORBIDE MONONITRATE 30 MG (IMDUR) TAB PO SCH (08:19)
[2017-09-10] MEDS: ASPIRIN 81 MG CHEW (CHILDREN'S ASA) PO SCH (08:19)
[2017-09-10] MEDS: VENlafaxine XR 75 MG (EFFEXOR XR) CAP PO SCH (08:47)
--- NOTE | 2017-09-10 08:55 | Progress Note (SOAP) ---
Subjective Subjective/Events-last exam Improved respiratory status with improved ABG this morning, but was agitated and required initiation of Precedex drip overnight per eICU in order to tolerate bipap. Review of Systems Date Seen by Provider: September 10, 2017 Time Seen by Provider: 07:20 Focused Exam Lactate Level 09/08/17 18:44: Lactic Acid Level 0.91 Objective Exam Last Set of Vital Signs Vital Signs Date Time Temp Pulse Resp B/P (MAP) Pulse Ox O2 Delivery O2 Flow Rate FiO2 09/10/17 08:48 97.1 Vapotherm 35.00 25.00 09/10/17 06:23 73 21 96 09/10/17 04:00 30 Capillary Refill : Less Than 3 Seconds I&O Intake and Output 09/10/17 00:00 Intake Total 1550 ml Output Total 525 ml Balance 1025 ml Intake Oral 300 ml IV Total 1250 ml Output Urine Total 525 ml # Voids 1 Daily Weight Change No General: Alert, Mild Distress Lungs: Clear to Auscultation, Other (decreased air movement) Neuro: Normal Speech Psych/Mental Status: Mental Status NL Results/Procedures Lab Laboratory Tests 09/09/17 10:20: Blood Gas Puncture Site LT RAD, Blood Gas Patient Temperature 97.3, Arterial Blood pH 7.32*L, Arterial Blood Partial Pressure CO2 49H, Arterial Blood Partial Pressure O2 121H, Arterial Blood HCO3 25, Arterial Blood Total CO2 26.5 , Arterial Blood Oxygen Saturation 99, Arterial Blood Base Excess -0.5, John Test YES-POS, Blood Gas Ventilator Setting NO, Blood Gas Inspired Oxygen 35% 09/10/17 03:05: White Blood Count 13.8H, Red Blood Count 3.80L, Hemoglobin 11.6, Hematocrit 35, Mean Corpuscular Volume 93, Mean Corpuscular Hemoglobin 31, Mean Corpuscular Hemoglobin Concent 33, Red Cell Distribution Width 12.5, Platelet Count 319, Mean Platelet Volume 9.7, Neutrophils (%) (Auto) 92H, Lymphocytes (%) (Auto) 3L , Monocytes (%) (Auto) 6, Eosinophils (%) (Auto) 0, Basophils (%) (Auto) 0, Neutrophils # (Auto) 12.7H, Lymphocytes # (Auto) 0.4L, Monocytes # (Auto) 0.8, Eosinophils # (Auto) 0.0, Basophils # (Auto) 0.0, Sodium Level 140, Potassium Level 4.5, Chloride Level 107, Carbon Dioxide Level 24, Anion Gap 9, Blood Urea Nitrogen 32H, Creatinine 0.67, Estimat Glomerular Filtration Rate > 60, BUN/ Creatinine Ratio 48, Glucose Level 151H, Calcium Level 9.5, Phosphorus Level 2.7 , Magnesium Level 2.4 09/10/17 03:18: Blood Gas Puncture Site R RAD, Blood Gas Patient Temperature 96.1, Arterial Blood pH 7.35L, Arterial Blood Partial Pressure CO2 48H, Arterial Blood Partial Pressure O2 112H, Arterial Blood HCO3 26, Arterial Blood Total CO2 27.8, Arterial Blood Oxygen Saturation 99, Arterial Blood Base Excess 1.0, John Test YES-POS, Blood Gas Ventilator Setting NO, Blood Gas Inspired Oxygen 30% BIPAP Microbiology 09/08/17 Blood Culture - Preliminary, Resulted No growth Radiology CXR 09/08 with changes of COPD, no acute findings Assessment/Plan Assessment/Plan (1) Acute on chronic respiratory failure with hypoxia and hypercapnia Status: Acute Assessment & Plan: Blood gas on admission normal, requires continuous supplemental oxygen at baseline, however overnight had worsening respiratory distress with development of acute on chronic hypercapneic respiratory failure requiring bi-pap and transfer to ICU. ABG this am improved with bipap, continue. Discussed her wishes if she worsens on bipap, and she does not know if she would be willing to be intubated, recommend she discuss with her family as this is a real concern for this admission. 09/10 improving with bipap, requiring benzo and now Precedex to tolerate bipap. (2) COPD exacerbation Status: Acute Assessment & Plan: Solumedrol 125 mg q6, azithromycin, duonebs, RT protocol. (3) Depression Status: Chronic Assessment & Plan: Resume home Pristiq Qualifiers: (4) HTN (hypertension) Status: Chronic Assessment & Plan: Resume home metoprolol and isosorbide. Qualifiers: Qualified Codes: I10 - Essential (primary) hypertension (5) Anxiety Status: Chronic Assessment & Plan: Continue home ativan. May need extra doses to tolerate bipap. (6) Coronary artery disease Status: Chronic Assessment & Plan: Resume home Plavix and asa. (7) DVT prophylaxis Status: Acute Assessment & Plan: Enoxaparin Clinical Quality Measures DVT/VTE Risk/Contraindication: Risk Factor Score Per Nursin RFS Level Per Nursing on Admit: 4+=Very High ОЛЕГ KWON MD September 10, 2017 8:55 am
[2017-09-10] MEDS: RT-ALBUTEROL/IPRATROPIUM 3 ML (DUONEB) VIAL INH PRN (09:11)
--- NOTE | 2017-09-10 09:13 | Diagnostic Imaging Report ---
INDICATION: COPD exacerbation, shortness of air. TECHNIQUE: Single view chest 4:04 AM. CORRELATION STUDY: 09/09/2017 FINDINGS: The heart size, mediastinal configuration and pulmonary vascularity are within normal limits. Minimal areas of atelectasis about the mid lung morgan. IMPRESSION: 1. No radiographic findings to suggest acute abnormality of the chest. Dictated by: Dictated on workstation # [id number]
[2017-09-10] MEDS: ENOXAPARIN 40 MG/0.4 ML (LOVENOX) SYR SQ SCH (15:14)
[2017-09-10] MEDS: MONTELUKAST 10 MG (SINGULAIR) TAB PO SCH (20:20)
[2017-09-10] MEDS: guaiFENesin/DM (ROBITUSSIN DM) 10 ML UDC PO PRN (20:20)
[2017-09-10] MEDS: LORazepam 1 MG (ATIVAN) TAB PO PRN (20:21)
[2017-09-10] MEDS: AZITHROMYCIN 250 MG/NS 250 ML IVPB IV SCH ×2 (20:23)
[2017-09-11] VITALS (26 sets, daily range): BP systolic 104–151; BP diastolic 68–99
[2017-09-11] MEDS: DEXMEDETOMIDINE 400 MCG/NS 100 ML IV DRIP IV SCH ×2 (01:52)
[2017-09-11] MEDS: methylPREDNISolone 125 MG (Solu-MEDROL) VIAL IVP SCH ×4 (01:52→17:14)
[2017-09-11] MEDS: RT-ALBUTEROL/IPRATROPIUM 3 ML (DUONEB) VIAL INH SCH ×6 (02:35→21:47)
[2017-09-11 03:17] LABS: ABG BASE EXCESS 2.7 MMOL/L (-2.5-2.5); ABG OXYGEN SATURATION 98 % (94-100); ABG PCO2 48 MMHG (35-45); ABG PH 7.37 (7.37-7.43); ABG PO2 101 MMHG (79-93); ABG TCO2 29.2 MMOL/L (21.0-31.0); ALLENS TEST YES-POS
[2017-09-11 03:18] LABS: INSPIRED O2 30%; VENTILATOR NO
[2017-09-11] MEDS: MAGNESIUM 1 GM/100 ML IVPB 100 ML IV SCH (03:32)
[2017-09-11] MEDS: POTASSIUM CL 10MEQ/50ML IVPB 50 ML IV SCH (03:32)
[2017-09-11] MEDS: KCL 20 MEQ TAB (K-DUR) PO SCH (03:32)
[2017-09-11 04:25] LABS: BASOPHILS % (AUTO) 0 % (0-10); EOSINOPHILS % (AUTO) 0 % (0-10); HEMATOCRIT 35 % (35-52); HEMOGLOBIN 11.5 G/DL (11.5-16.0); LYMPHOCYTES # (AUTO) 0.4 X 10^3 (1.0-4.0); LYMPHOCYTES % (AUTO) 3 % (12-44); MEAN CORPUSCULAR HEMOGLOBIN 30 PG (25-34); MEAN CORPUSCULAR HGB CONC 33 G/DL (32-36); MEAN CORPUSCULAR VOLUME 93 FL (80-99); MEAN PLATELET VOLUME 9.6 FL (7.4-10.4); MONOCYTES # (AUTO) 0.5 X 10^3 (0.0-1.0); MONOCYTES % (AUTO) 3 % (0-12); NEUTROPHILS # (AUTO) 13.7 X 10^3 (1.8-7.8); NEUTROPHILS % (AUTO) 94 % (42-75); PLATELET COUNT 350 10^3/uL (130-400); RED BLOOD COUNT 3.81 10^6/uL (4.35-5.85); RED CELL DISTRIBUTION WIDTH 12.4 % (10.0-14.5); WHITE BLOOD COUNT 14.5 10^3/uL (4.3-11.0)
[2017-09-11 04:49] LABS: BUN/CREATININE RATIO 42; CALCIUM 9.4 MG/DL (8.5-10.1); CARBON DIOXIDE 24 MMOL/L (21-32); CHLORIDE 104 MMOL/L (98-107); CREATININE SERUM 0.69 MG/DL (0.60-1.30); GFR ESTIMATED > 60; GLUCOSE 149 MG/DL (70-105); MAGNESIUM 2.6 MG/DL (1.8-2.4); PHOSPHORUS 3.3 MG/DL (2.3-4.7); POTASSIUM 4.6 MMOL/L (3.6-5.0); SODIUM 138 MMOL/L (135-145)
[2017-09-11] MEDS: LORazepam 1 MG (ATIVAN) TAB PO PRN ×2 (06:27→20:02)
[2017-09-11] MEDS: VENlafaxine XR 75 MG (EFFEXOR XR) CAP PO SCH (06:27)
[2017-09-11] MEDS: meTOprolol TARTRATE 25 MG (LOPRESSOR) TABLET PO SCH ×2 (07:49→20:55)
[2017-09-11] MEDS: ISOSORBIDE MONONITRATE 30 MG (IMDUR) TAB PO SCH (07:49)
[2017-09-11] MEDS: LORATADINE (CLARITIN) 10 MG TAB PO SCH (07:49)
[2017-09-11] MEDS: CLOPIDOGREL 75 MG (PLAVIX) TABLET PO SCH (07:49)
[2017-09-11] MEDS: ASPIRIN 81 MG CHEW (CHILDREN'S ASA) PO SCH (07:49)
[2017-09-11] MEDS: guaiFENesin/DM (ROBITUSSIN DM) 10 ML UDC PO PRN ×3 (07:54→20:02)
--- NOTE | 2017-09-11 08:16 | Diagnostic Imaging Report ---
Indication: Shortness of breath and COPD exacerbation. Comparison made with prior examination of 09/10/2017. Findings: The heart size is normal. Lungs are clear. No pleural effusion or pneumothorax. Mediastinum unremarkable. Impression: No acute cardiopulmonary abnormality. Dictated by: Dictated on workstation # [id number]
--- NOTE | 2017-09-11 12:47 | Progress Note-Hospitalist ---
Subjective HPI/CC On Admission Date Seen by Provider: September 11, 2017 Time Seen by Provider: 11:00 Subjective/Events-last exam Patient feeling much better since off the BiPAP Dialing down Vapotherm Patient still wheezy but wheezing at baseline Denies any pain Reviewed meds and labs at bedside Focused Exam Lactate Level 09/08/17 18:44: Lactic Acid Level 0.91 Objective Exam Vital Signs Vital Signs Date Time Temp Pulse Resp B/P (MAP) Pulse Ox O2 Delivery O2 Flow Rate FiO2 09/11/17 17:00 86 23 127/83 (98) 94 Nasal Cannula 5.00 09/11/17 16:37 99.6 09/11/17 12:18 30 Capillary Refill : Less Than 3 Seconds General Appearance: No Apparent Distress, WD/WN, Chronically ill Respiratory: Crackles, Wheezing Cardiovascular: Regular Rate, Rhythm, No Edema Neurologic/Psychiatric: Alert, Oriented x3, No Motor/Sensory Deficits, Normal Mood/Affect Results/Procedures Lab Laboratory Tests 09/11/17 03:32 Patient resulted labs reviewed. Assessment/Plan Assessment and Plan Assess & Plan/Chief Complaint Assessment per Dr Razo: (1) Acute on chronic respiratory failure with hypoxia and hypercapnia Status: Acute Assessment & Plan: Blood gas on admission normal, requires continuous supplemental oxygen at baseline, however overnight had worsening respiratory distress with development of acute on chronic hypercapneic respiratory failure requiring bi-pap and transfer to ICU. ABG this am improved with bipap, continue. Discussed her wishes if she worsens on bipap, and she does not know if she would be willing to be intubated, recommend she discuss with her family as this is a real concern for this admission. 09/10 improving with bipap, requiring benzo and now Precedex to tolerate bipap. 09/11: weaned off biPAP now on Vapotherm (2) COPD exacerbation Status: Acute Assessment & Plan: Solumedrol 125 mg q6, azithromycin, duonebs, RT protocol. (3) Depression Status: Chronic Assessment & Plan: Resume home Pristiq Qualifiers: (4) HTN (hypertension) Status: Chronic Assessment & Plan: Resume home metoprolol and isosorbide. Qualifiers: Qualified Codes: I10 - Essential (primary) hypertension (5) Anxiety Status: Chronic Assessment & Plan: Continue home ativan. May need extra doses to tolerate bipap. (6) Coronary artery disease Status: Chronic Assessment & Plan: Resume home Plavix and asa. (7) DVT prophylaxis Status: Acute Assessment & Plan: Enoxaparin Plan: Continue bipap wean Nebs IV steroids Poor prognosis overall Diagnosis/Problems Diagnosis/Problems (1) Acute on chronic respiratory failure with hypoxia and hypercapnia Status: Acute (2) COPD (chronic obstructive pulmonary disease) Status: Chronic Qualifiers: COPD type: unspecified COPD Qualified Codes: J44.9 - Chronic obstructive pulmonary disease, unspecified (3) Tobacco abuse Status: Chronic (4) HTN (hypertension) Status: Chronic Qualifiers: Hypertension type: essential hypertension Qualified Codes: I10 - Essential (primary) hypertension (5) Debility Status: Chronic (6) Depression Status: Chronic Qualifiers: Depression Type: major depressive disorder (7) Anxiety Status: Chronic (8) Coronary artery disease Status: Chronic Clinical Quality Measures DVT/VTE Risk/Contraindication: Risk Factor Score Per Nursin RFS Level Per Nursing on Admit: 4+=Very High HEMA FISCHER DO September 11, 2017 12:47
[2017-09-11] MEDS: ENOXAPARIN 40 MG/0.4 ML (LOVENOX) SYR SQ SCH (14:54)
[2017-09-11] MEDS: LACTULOSE SYRUP 10GM/15ML (ENULOSE) 30ML UDC PO SCH ×2 (20:46→20:47)
[2017-09-11] MEDS: POLYETHYLENE GLYCOL 17 GM (MIRALAX) PACK PO SCH (20:47)
[2017-09-11] MEDS: AZITHROMYCIN 250 MG/NS 250 ML IVPB IV SCH ×2 (20:55)
[2017-09-11] MEDS: MONTELUKAST 10 MG (SINGULAIR) TAB PO SCH (20:55)
[2017-09-12] VITALS (15 sets, daily range): BP systolic 129–161; BP diastolic 66–95
[2017-09-12] MEDS: methylPREDNISolone 125 MG (Solu-MEDROL) VIAL IVP SCH ×4 (00:31→18:56)
[2017-09-12] MEDS: RT-ALBUTEROL/IPRATROPIUM 3 ML (DUONEB) VIAL INH SCH ×6 (01:35→22:55)
[2017-09-12 03:32] LABS: HEMOGLOBIN 11.6 G/DL (11.5-16.0); RED BLOOD COUNT 3.85 10^6/uL (4.35-5.85); WHITE BLOOD COUNT 11.8 10^3/uL (4.3-11.0)
[2017-09-12 03:33] LABS: BASOPHILS % (AUTO) 0 % (0-10); EOSINOPHILS % (AUTO) 0 % (0-10); HEMATOCRIT 35 % (35-52); LYMPHOCYTES # (AUTO) 0.3 X 10^3 (1.0-4.0); LYMPHOCYTES % (AUTO) 3 % (12-44); MEAN CORPUSCULAR HEMOGLOBIN 30 PG (25-34); MEAN CORPUSCULAR HGB CONC 33 G/DL (32-36); MEAN CORPUSCULAR VOLUME 91 FL (80-99); MEAN PLATELET VOLUME 9.6 FL (7.4-10.4); MONOCYTES # (AUTO) 0.5 X 10^3 (0.0-1.0); MONOCYTES % (AUTO) 5 % (0-12); NEUTROPHILS # (AUTO) 10.9 X 10^3 (1.8-7.8); NEUTROPHILS % (AUTO) 93 % (42-75); PLATELET COUNT 364 10^3/uL (130-400); RED CELL DISTRIBUTION WIDTH 12.3 % (10.0-14.5)
[2017-09-12 03:59] LABS: BUN/CREATININE RATIO 35; CALCIUM 9.2 MG/DL (8.5-10.1); CARBON DIOXIDE 24 MMOL/L (21-32); CHLORIDE 103 MMOL/L (98-107); CREATININE SERUM 0.65 MG/DL (0.60-1.30); GFR ESTIMATED > 60; GLUCOSE 137 MG/DL (70-105); MAGNESIUM 2.3 MG/DL (1.8-2.4); POTASSIUM 4.5 MMOL/L (3.6-5.0); SODIUM 136 MMOL/L (135-145)
[2017-09-12] MEDS: POTASSIUM CL 10MEQ/50ML IVPB 50 ML IV SCH (04:44)
[2017-09-12] MEDS: MAGNESIUM 1 GM/100 ML IVPB 100 ML IV SCH (04:45)
[2017-09-12] MEDS: KCL 20 MEQ TAB (K-DUR) PO SCH (04:45)
[2017-09-12] MEDS: VENlafaxine XR 75 MG (EFFEXOR XR) CAP PO SCH (06:11)
[2017-09-12] MEDS: LORATADINE (CLARITIN) 10 MG TAB PO SCH (07:41)
[2017-09-12] MEDS: ASPIRIN 81 MG CHEW (CHILDREN'S ASA) PO SCH (07:41)
[2017-09-12] MEDS: LORazepam 1 MG (ATIVAN) TAB PO PRN ×2 (07:41→21:17)
[2017-09-12] MEDS: ISOSORBIDE MONONITRATE 30 MG (IMDUR) TAB PO SCH (07:41)
[2017-09-12] MEDS: meTOprolol TARTRATE 25 MG (LOPRESSOR) TABLET PO SCH ×2 (07:41→21:17)
[2017-09-12] MEDS: CLOPIDOGREL 75 MG (PLAVIX) TABLET PO SCH (07:41)
[2017-09-12] MEDS: guaiFENesin/DM (ROBITUSSIN DM) 10 ML UDC PO PRN (07:42)
[2017-09-12] MEDS: LACTULOSE SYRUP 10GM/15ML (ENULOSE) 30ML UDC PO SCH ×2 (07:45→21:18)
[2017-09-12] MEDS: POLYETHYLENE GLYCOL 17 GM (MIRALAX) PACK PO SCH ×2 (07:46→21:18)
--- NOTE | 2017-09-12 09:35 | Diagnostic Imaging Report ---
INDICATION: Respiratory distress. COMPARISON: 09/11/2017 FINDINGS: Upright portable view of the chest is changed. Heart size is normal. The pulmonary vessels appear unremarkable. There is no pneumothorax, mediastinal widening or pleural fluid. Some scarring or atelectasis in the right upper lung is unchanged. Lungs otherwise clear. IMPRESSION: No radiographic evidence of an acute cardiopulmonary abnormality. No interval change from the recent prior study. Dictated by: Dictated on workstation # [id number]
--- NOTE | 2017-09-12 10:36 | Progress Note-Hospitalist ---
Subjective HPI/CC On Admission Date Seen by Provider: September 12, 2017 Time Seen by Provider: 09:30 Subjective/Events-last exam Patient doing much better Will transfer to fourth floor today Patient was to go home soon Will titrate IV Solu-Medrol down today Converting antibiotics to by mouth Patient has oxygen at home No longer requiring BiPAP Loose stools chronically Review of Systems Pulmonary: Cough Objective Exam Vital Signs Vital Signs Date Time Temp Pulse Resp B/P (MAP) Pulse Ox O2 Delivery O2 Flow Rate FiO2 09/12/17 10:38 95 High Flow N/C 3.00 09/12/17 10:00 84 22 129/92 (104) 09/12/17 07:45 98.4 09/11/17 12:18 30 Capillary Refill : Less Than 3 Seconds General Appearance: No Apparent Distress, WD/WN, Chronically ill Respiratory: No Accessory Muscle Use, No Respiratory Distress, Wheezing Cardiovascular: Regular Rate, Rhythm, No Edema Neurologic/Psychiatric: Alert, Oriented x3, No Motor/Sensory Deficits, Normal Mood/Affect Results/Procedures Lab Laboratory Tests 09/12/17 03:05 Patient resulted labs reviewed. Assessment/Plan Assessment and Plan Assess & Plan/Chief Complaint Assessment per Dr Razo: (1) Acute on chronic respiratory failure with hypoxia and hypercapnia Status: Acute Assessment & Plan: Blood gas on admission normal, requires continuous supplemental oxygen at baseline, however overnight had worsening respiratory distress with development of acute on chronic hypercapneic respiratory failure requiring bi-pap and transfer to ICU. ABG this am improved with bipap, continue. Discussed her wishes if she worsens on bipap, and she does not know if she would be willing to be intubated, recommend she discuss with her family as this is a real concern for this admission. 09/10 improving with bipap, requiring benzo and now Precedex to tolerate bipap. 09/11: weaned off biPAP now on Vapotherm 09/12 Transfer to 4th floor (2) COPD exacerbation Status: Acute Assessment & Plan: Solumedrol 125 mg q6, azithromycin, duonebs, RT protocol. Decreasing Solumedrol today (3) Depression Status: Chronic Assessment & Plan: Resume home Pristiq Qualifiers: (4) HTN (hypertension) Status: Chronic Assessment & Plan: Resume home metoprolol and isosorbide. Qualifiers: Qualified Codes: I10 - Essential (primary) hypertension (5) Anxiety Status: Chronic Assessment & Plan: Continue home ativan. May need extra doses to tolerate bipap. (6) Coronary artery disease Status: Chronic Assessment & Plan: Resume home Plavix and asa. (7) DVT prophylaxis Status: Acute Assessment & Plan: Enoxaparin Plan: 4th floor Nebs IV steroids decrease dose Poor prognosis overall Diagnosis/Problems Diagnosis/Problems (1) Acute on chronic respiratory failure with hypoxia and hypercapnia Status: Acute (2) COPD (chronic obstructive pulmonary disease) Status: Chronic Qualifiers: COPD type: unspecified COPD Qualified Codes: J44.9 - Chronic obstructive pulmonary disease, unspecified (3) Tobacco abuse Status: Chronic (4) HTN (hypertension) Status: Chronic Qualifiers: Hypertension type: essential hypertension Qualified Codes: I10 - Essential (primary) hypertension (5) Debility Status: Chronic (6) Depression Status: Chronic Qualifiers: Depression Type: major depressive disorder (7) Anxiety Status: Chronic (8) Coronary artery disease Status: Chronic Clinical Quality Measures DVT/VTE Risk/Contraindication: Risk Factor Score Per Nursin RFS Level Per Nursing on Admit: 4+=Very High HEMA FISCHER DO September 12, 2017 10:36
[2017-09-12] MEDS ORDERED: LORazepam INJ 2 MG/ML (ATIVAN) VIAL IVP PRN (10:45)
[2017-09-12] MEDS: ENOXAPARIN 40 MG/0.4 ML (LOVENOX) SYR SQ SCH (14:26)
[2017-09-12] MEDS: MONTELUKAST 10 MG (SINGULAIR) TAB PO SCH (21:18)
[2017-09-12] MEDS ORDERED: NS (IVPB) 250 ML ONE (21:26)
[2017-09-12] MEDS ORDERED: AZITHROMYCIN 500 MG (ZITHROMAX) VIAL ONE (21:27)
[2017-09-12] MEDS: AZITHROMYCIN 250 MG/NS 250 ML IVPB IV SCH ×2 (21:43)
[2017-09-13] VITALS: BP_SYST 143; BP_SYST 148; BP_DIAS 80; BP_DIAS 84
[2017-09-13] MEDS: methylPREDNISolone 125 MG (Solu-MEDROL) VIAL IVP SCH ×2 (00:30→06:17)
[2017-09-13] MEDS: RT-ALBUTEROL/IPRATROPIUM 3 ML (DUONEB) VIAL INH SCH ×2 (02:17→07:16)
[2017-09-13] MEDS: guaiFENesin/DM (ROBITUSSIN DM) 10 ML UDC PO PRN ×2 (02:27→08:42)
[2017-09-13 04:00] VITALS: BP 148/84
[2017-09-13 05:08] LABS: BUN/CREATININE RATIO 35; CALCIUM 9.1 MG/DL (8.5-10.1); CARBON DIOXIDE 25 MMOL/L (21-32); CHLORIDE 104 MMOL/L (98-107); CREATININE SERUM 0.63 MG/DL (0.60-1.30); GFR ESTIMATED > 60; GLUCOSE 132 MG/DL (70-105); POTASSIUM 4.6 MMOL/L (3.6-5.0); SODIUM 139 MMOL/L (135-145)
[2017-09-13] MEDS: VENlafaxine XR 75 MG (EFFEXOR XR) CAP PO SCH (06:17)
[2017-09-13 08:00] VITALS: BP 151/71
[2017-09-13] MEDS: LORATADINE (CLARITIN) 10 MG TAB PO SCH (08:42)
[2017-09-13] MEDS: ASPIRIN 81 MG CHEW (CHILDREN'S ASA) PO SCH (08:42)
[2017-09-13] MEDS: meTOprolol TARTRATE 25 MG (LOPRESSOR) TABLET PO SCH (08:42)
[2017-09-13] MEDS: CLOPIDOGREL 75 MG (PLAVIX) TABLET PO SCH (08:42)
[2017-09-13] MEDS: ISOSORBIDE MONONITRATE 30 MG (IMDUR) TAB PO SCH (08:42)
[2017-09-13] MEDS: LACTULOSE SYRUP 10GM/15ML (ENULOSE) 30ML UDC PO SCH (08:43)
[2017-09-13] MEDS: POLYETHYLENE GLYCOL 17 GM (MIRALAX) PACK PO SCH (08:43)
[2017-09-13] MEDS ORDERED: PRED10TA22 PO (09:24)
[2017-09-13] MEDS ORDERED: CLOP75TA28 PO (09:24)
--- NOTE | 2017-09-13 09:25 | Discharge Summary-Hospitalist ---
Diagnosis/Chief Complaint Date of Admission September 08, 2017 at 19:42 Date of Discharge Discharge Date: September 13, 2017 Discharge Diagnosis (1) Acute on chronic respiratory failure with hypoxia and hypercapnia Status: Acute (2) COPD (chronic obstructive pulmonary disease) Status: Chronic (3) Tobacco abuse Status: Chronic (4) HTN (hypertension) Status: Chronic (5) Debility Status: Chronic (6) Depression Status: Chronic (7) Anxiety Status: Chronic (8) Coronary artery disease Status: Chronic Discharge Summary Discharge Physical Exam Allergies: Coded Allergies: tramadol (Unverified Allergy, Mild, 07/08/13) Penicillins (Verified Allergy, Unknown, 07/08/13) Sulfa (Sulfonamide Antibiotics) (Verified Allergy, Unknown, 07/08/13) sumatriptan (Verified Allergy, Unknown, 07/08/13) Vitals & I&Os Vital Signs Date Time Temp Pulse Resp B/P (MAP) Pulse Ox O2 Delivery O2 Flow Rate FiO2 09/13/17 08:00 97.8 91 18 151/71 (97) 97 Nasal Cannula 3.00 09/11/17 12:18 30 General Appearance: Alert, Oriented X3, Cooperative Respiratory: Clear to Auscultation, Normal Air Movement, Other (Minimal wheeze noted at the very end expiratory phase) Abdominal: Normal Bowel Sounds Neuro: Normal Gait, Normal Speech, Strength at 5/5 X4 Ext Psych/Mental Status: Mental Status NL, Mood NL Hospital Course Hospital course: Patient had a lengthy hospital course due to the severity of her respiratory insufficiency requiring BiPAP and Vapotherm. Smoking cessation was counseled. IV steroids were maintained at high dose due to the severity of COPD. She completed antibiotics for upper respiratory bacterial infection and was counseled for smoking cessation at discharge but overall poor prognosis given the fact of the severity of her COPD and continued smoking and other comorbidities. [facility]. Labs (last 24 hrs) Laboratory Tests 09/13/17 04:30: Sodium Level 139, Potassium Level 4.6, Chloride Level 104, Carbon Dioxide Level 25, Anion Gap 10, Blood Urea Nitrogen 22H, Creatinine 0.63, Estimat Glomerular Filtration Rate > 60, BUN/Creatinine Ratio 35, Glucose Level 132H, Calcium Level 9.1 Microbiology 09/08/17 Blood Culture - Preliminary, Resulted No growth Patient resulted labs reviewed. Pending Labs Laboratory Tests 09/13/17 04:30: Sodium Level 139, Potassium Level 4.6, Chloride Level 104, Carbon Dioxide Level 25, Anion Gap 10, Blood Urea Nitrogen 22, Creatinine 0.63, Estimat Glomerular Filtration Rate > 60, BUN/Creatinine Ratio 35, Glucose Level 132, Calcium Level 9.1 Discussion & Recommendations Discharge Planning: <30 minutes discharge planning Discharge Home Medications: Active Scripts Active Prednisone 10 Mg Tab.ds.pk 10 Mg PO DAILY Take 6 tabs(60mg)daily,decrease by 1 tab(10mg)every other day. Clopidogrel (Clopidogrel Bisulfate) 75 Mg Tablet 75 Mg PO DAILY Reported Trelegy Ellipta 100-62.5-25 (Fluticasone/Umeclidin/Vilanter) 1 Each Blst.w.dev 1 Each IH DAILY Aspirin EC (Aspirin) 81 Mg Tablet.dr 81 Mg PO HS Nitroglycerin 0.4 Mg Tab.subl 0.4 Mg SL UD PRN Metoprolol Tartrate 25 Mg Tablet 25 Mg PO BID Lorazepam 1 Mg Tablet 1 Mg PO BID PRN Isosorbide Mononitrate ER (Isosorbide Mononitrate) 30 Mg Tab.er.24h 30 Mg PO DAILY Ventolin Hfa (Albuterol Sulfate) 18 Gm Hfa.aer.ad 2 Puff INH Q4H PRN Albuterol Sulfate 2.5 Mg/3 Ml Vial.neb 2.5 Mg NEB Q4H PRN Iprat-Albut 0.5-3(2.5) mg/3 ml (Ipratropium/Albuterol Sulfate) 3 Ml Ampul.neb 3 Ml NEB BID Magnesium (Magnesium Oxide) 250 Mg Tablet 500 Mg PO DAILY TAKE 2 (250MG) TABLETS ONCE DAILY Cetirizine HCl 10 Mg Tablet 10 Mg PO DAILY Montelukast Sodium 10 Mg Tablet 10 Mg PO HS Vitamin C (Ascorbate Calcium) 500 Mg Tablet 500 Mg PO DAILY Iron (Ferrous Sulfate) 325 Mg Tablet 325 Mg PO BID Folic Acid 0.4 Mg Tablet 0.4 Mg PO DAILY Pristiq ER (Desvenlafaxine Succinate) 100 Mg Tab.er.24h 100 Mg PO DAILY Instructions to patient/family Please see electronic discharge instructions given to patient. Clinical Quality Measures DVT/VTE Risk/Contraindication: Risk Factor Score Per Nursin RFS Level Per Nursing on Admit: 4+=Very High Problem Qualifiers (1) COPD (chronic obstructive pulmonary disease): COPD type: unspecified COPD Qualified Codes: J44.9 - Chronic obstructive pulmonary disease, unspecified (2) HTN (hypertension): Hypertension type: essential hypertension Qualified Codes: I10 - Essential ( primary) hypertension (3) Depression: Depression Type: major depressive disorder HEMA FISCHER DO September 13, 2017 09:25
== END 2017-09-13 10:30 | disposition home or self-care (01) | DRG 190 ==
LOC: EDUNIT# 17:46 → ER 17:47 → 4TH 19:42 → ICU 09-09 02:50 → 4TH 09-12 11:24
PROVIDERS: ADMIT Family Medicine; ATTEND Family Medicine
DX: J43.9 Emphysema, unspecified (principal); J96.22 Acute and chronic respiratory failure with hypercapnia; J96.21 Acute and chronic respiratory failure with hypoxia; J06.9 Acute upper respiratory infection, unspecified; F32.9 Major depressive disorder, single episode, unspecified; I25.10 Atherosclerotic heart disease of native coronary artery without angina pectoris; I10 Essential (primary) hypertension; F41.9 Anxiety disorder, unspecified; R41.3 Other amnesia; K58.9 Irritable bowel syndrome, unspecified; G25.0 Essential tremor; F17.210 Nicotine dependence, cigarettes, uncomplicated; J30.2 Other seasonal allergic rhinitis; K21.9 Gastro-esophageal reflux disease without esophagitis; D50.9 Iron deficiency anemia, unspecified; M19.91 Primary osteoarthritis, unspecified site; R53.81 Other malaise; Z99.81 Dependence on supplemental oxygen; Z79.51 Long term (current) use of inhaled steroids; Z95.5 Presence of coronary angioplasty implant and graft; Z79.52 Long term (current) use of systemic steroids
CPT/HCPCS: 36415; 71045; 71046; 80048; 80053; 82805; 83605; 83735; 84100; 85007; 85025; 85027; 86141; 87040; 93005; 94640; 94660; 94760; 96361; 96365; 96367; 96375

== ENCOUNTER → 2017-10-03 | Outpatient (CLI) | payer MEDICARE ==
[~2017-10-03] MED LIST changes: +FLUT1BLS3 IH; +PRED10TA22 PO
--- NOTE | 2017-10-03 18:44 | Diagnostic Imaging Report ---
INDICATION: Dyspnea, emphysema, hypoxia, shortness of breath, and allergic rhinitis. Comparison made with prior examination from 09/12/2017. FINDINGS: Heart size is normal. Mediastinum is unremarkable. There is unchanged scarring in the right upper lobe. There is no pleural effusion or pneumothorax. Mediastinum is unremarkable. There is air trapping compatible with COPD. IMPRESSION: Emphysema and COPD. Unchanged scarring in the right upper lobe. Dictated by: Dictated on workstation # [id number]
== END ==
LOC: RAD 15:10
PROVIDERS: ATTEND Nurse Practitioner Family
DX: J43.9 Emphysema, unspecified (principal); J30.9 Allergic rhinitis, unspecified; Z72.0 Tobacco use
CPT/HCPCS: 71046

== ENCOUNTER 2017-11-02 05:39 | Outpatient (CLI) | payer MEDICARE ==
[~2017-11-02] VITALS: Ht 161.3 cm; Wt 60.3 kg
[~2017-11-02 05:39] MED LIST changes: -IPRA3AMP IH; -IPRA3AMP NEB; +IPRA3AMP31 IH; +IPRA3AMP31 NEB
[2017-11-02] MEDS ORDERED: PRD10T PO (08:56)
== END 2017-11-02 09:03 ==
LOC: PREOP 05:39
PROVIDERS: ATTEND Specialist
DX: Z01.818 Encounter for other preprocedural examination (principal)

== ENCOUNTER 2017-11-03 10:09 | Day surgery (SDC) | payer MEDICARE ==
[~2017-11-03] VITALS: Ht 161.3 cm; Wt 60.3 kg
[2017-11-03] MEDS ORDERED: EPINEPHrine INJECTION 1 MG/ML AMP INJ ONE (10:15)
[2017-11-03] MEDS ORDERED: LIDOCAINE PF 1% 2 ML AMP IR PRN (10:15)
[2017-11-03] MEDS ORDERED: TIMOLOL MALEATE 0.5% 5 ML (TIMOPTIC) BTL OU PRN (10:15)
[2017-11-03] MEDS ORDERED: VANCOMYCIN/BSS (COMPOUNDED) 10 MG/ML SYR OP ONE (10:15)
[2017-11-03] MEDS ORDERED: POVIDONE (BETADINE) OPHTH SOLN 5% 30 ML OP ONE (10:15)
[2017-11-03] MEDS: TETRACAINE 0.5% OPHTH SOLN 4 ML BTL (SINGLE DOSE ONLY) OU PRN ×4 (10:24→10:38)
[2017-11-03 10:30] VITALS: BP 126/81
[2017-11-03] MEDS ORDERED: RT-ALBUTEROL SULF 2.5 MG/3 ML PRE-MIX VIAL INH ONE (10:30)
[2017-11-03] MEDS: PHENYLEPHRINE 10% OPHTH (NEO-SYN) 5 ML BTL OU SCH ×3 (10:30→10:38)
[2017-11-03] MEDS: CYCLOPENTOLATE 1% (CYCLOGYL) 2 ML DROPS OP SCH ×3 (10:30→10:38)
--- NOTE | 2017-11-03 10:42 | Ophthalmologist Pre-Op Note ---
Pre-Operative Progress Note H&P Reviewed The H&P was reviewed, patient examined and no changes noted. Date H&P Reviewed: Nov 03, 2017 Time H&P Reviewed: 10:42 Pre-Op Dx Cataract, Right Eye TORRES ANTHONY MD Nov 03, 2017 10:42
[2017-11-03] MEDS ORDERED: MIDAZOLAM 2 MG/2 ML (VERSED) VIAL ONE (10:43)
--- NOTE | 2017-11-03 11:12 | Ophthalmology Operative Report ---
Cataract removal/placement IOL PREOPERATIVE DIAGNOSIS: Cataract Right Eye POSTOPERATIVE DIAGNOSIS: Cataract Right Eye PROCEDURE: Cataract removal and placement of posterior chamber implant, right eye SURGEON: Juaquin Anthony ANESTHESIA: Topical with sedation COMPLICATIONS: None ESTIMATED BLOOD LOSS: Minimal DESCRIPTION OF PROCEDURE: After proper informed consent was obtained, the patient, a 67 female, was taken to the Operating Room and the right eye was anesthetized with tetracaine. The right eye was then prepped and draped in the usual manner. A wire lid speculum was placed. A paracentesis was made at the left hand position. Preservative free lidocaine was injected into the anterior chamber followed by viscoelastic. A clear corneal incision was made in the temporal position. A capsulorrhexis was preformed and the central nuclear and cortical material were removed. The posterior capsule was polished and Panchito 22.0 [id number] IOL was placed into the capsular bag. The residual viscoelastic was aspirated and balanced saline solution was injected into the anterior chamber. Vancomycin was injected into the anterior chamber. The wound was checked and found to be water tight. The patient tolerated the procedure well without complications. JUAQUIN ANTHONY MD Nov 03, 2017 11:12
[2017-11-03 11:21] VITALS: BP 103/78
--- NOTE | 2017-11-03 12:41 | Anesthesia-General Post-Op ---
MAC Patient Condition Mental Status/LOC: Same as Preop Cardiovascular: Satisfactory Nausea/Vomiting: Absent Respiratory: Satisfactory Pain: Controlled Complications: Absent Post Op Complications Complications None Follow Up Care/Instructions Patient Instructions None needed. Anesthesiology Discharge Order Discharge Order Patient is doing well, no complaints, stable vital signs, no apparent adverse anesthesia problems. No complications reported per nursing. DARWIN WATKINS CRNA Nov 03, 2017 12:41
== END 2017-11-03 11:21 | disposition home or self-care (01) ==
LOC: SDC 10:09
PROVIDERS: ATTEND Specialist
DX: H26.9 Unspecified cataract (principal); I10 Essential (primary) hypertension; I20.9 Angina pectoris, unspecified; J44.9 Chronic obstructive pulmonary disease, unspecified; F17.210 Nicotine dependence, cigarettes, uncomplicated; Z79.82 Long term (current) use of aspirin; Z95.5 Presence of coronary angioplasty implant and graft
CPT/HCPCS: 94640

== ENCOUNTER 2017-11-21 05:46 | Outpatient (CLI) | payer MEDICARE ==
[~2017-11-21] VITALS: Ht 161.3 cm; Wt 60.3 kg
== END 2017-11-21 15:07 | disposition home or self-care (01) ==
LOC: PREOP 05:46
PROVIDERS: ATTEND Specialist
DX: Z01.818 Encounter for other preprocedural examination (principal)

== ENCOUNTER 2017-11-24 07:35 | Day surgery (SDC) | payer MEDICARE ==
[~2017-11-24] VITALS: Ht 161.3 cm; Wt 60.3 kg
[2017-11-24] MEDS ORDERED: VANCOMYCIN/BSS (COMPOUNDED) 10 MG/ML SYR OP ONE (07:45)
[2017-11-24] MEDS ORDERED: POVIDONE (BETADINE) OPHTH SOLN 5% 30 ML OP ONE (07:45)
[2017-11-24] MEDS ORDERED: EPINEPHrine INJECTION 1 MG/ML AMP INJ ONE ×2 (07:45→08:00)
[2017-11-24] MEDS ORDERED: LIDOCAINE PF 1% 2 ML AMP IR PRN (07:45)
[2017-11-24] MEDS ORDERED: TIMOLOL MALEATE 0.5% 5 ML (TIMOPTIC) BTL OU PRN (07:45)
[2017-11-24] MEDS: TETRACAINE 0.5% OPHTH SOLN 4 ML BTL (SINGLE DOSE ONLY) OU PRN ×4 (07:51→08:06)
[2017-11-24 07:55] VITALS: BP 133/85
[2017-11-24] MEDS: CYCLOPENTOLATE 1% (CYCLOGYL) 2 ML DROPS OP SCH ×3 (07:58→08:06)
[2017-11-24] MEDS: PHENYLEPHRINE 10% OPHTH (NEO-SYN) 5 ML BTL OU SCH ×3 (07:58→08:06)
--- NOTE | 2017-11-24 08:29 | Ophthalmologist Pre-Op Note ---
Pre-Operative Progress Note H&P Reviewed The H&P was reviewed, patient examined and no changes noted. Date H&P Reviewed: Nov 24, 2017 Time H&P Reviewed: 08:29 Pre-Op Dx Cataract, Left Eye TORRES ANTHONY MD Nov 24, 2017 08:29
[2017-11-24] MEDS ORDERED: MIDAZOLAM 2 MG/2 ML (VERSED) VIAL ONE (08:38)
--- NOTE | 2017-11-24 08:55 | Ophthalmology Operative Report ---
Cataract removal/placement IOL PREOPERATIVE DIAGNOSIS: Cataract Left Eye POSTOPERATIVE DIAGNOSIS: Cataract Left Eye PROCEDURE: Cataract removal and placement of posterior chamber implant, left eye SURGEON: Juaquin Anthony ANESTHESIA: Topical with sedation COMPLICATIONS: None ESTIMATED BLOOD LOSS: Minimal DESCRIPTION OF PROCEDURE: After proper informed consent was obtained, the patient, a 67 female, was taken to the Operating Room and the left eye was anesthetized with tetracaine. The left eye was then prepped and draped in the usual manner. A wire lid speculum was placed. A paracentesis was made at the left hand position. Preservative free lidocaine was injected into the anterior chamber followed by viscoelastic. A clear corneal incision was made in the temporal position. A capsulorrhexis was preformed and the central nuclear and cortical material were removed. The posterior capsule was polished and an Panchito 22.5 SN6CWS IOL was placed into the capsular bag. The residual viscoelastic was aspirated and balanced saline solution was injected into the anterior chamber. Vancomycin was injected into the anterior chamber. The wound was checked and found to be water tight. The patient tolerated the procedure well without complications. JUAQUIN ANTHONY MD Nov 24, 2017 08:55
--- NOTE | 2017-11-24 09:04 | Anesthesia-General Post-Op ---
MAC Patient Condition Mental Status/LOC: Same as Preop Cardiovascular: Satisfactory Nausea/Vomiting: Absent Respiratory: Satisfactory Pain: Controlled Complications: Absent Post Op Complications Complications None Follow Up Care/Instructions Patient Instructions None needed. Anesthesiology Discharge Order Discharge Order Patient is doing well, no complaints, stable vital signs, no apparent adverse anesthesia problems. No complications reported per nursing. DARWIN WATKINS CRNA Nov 24, 2017 09:04
[2017-11-24 09:08] VITALS: BP 130/86
== END 2017-11-24 09:08 | disposition home or self-care (01) ==
LOC: SDC 07:35
PROVIDERS: ATTEND Specialist
DX: H26.9 Unspecified cataract (principal); I10 Essential (primary) hypertension; I20.9 Angina pectoris, unspecified; J44.9 Chronic obstructive pulmonary disease, unspecified; F17.210 Nicotine dependence, cigarettes, uncomplicated; Q61.3 Polycystic kidney, unspecified; Z95.5 Presence of coronary angioplasty implant and graft; Z99.81 Dependence on supplemental oxygen; Z79.52 Long term (current) use of systemic steroids

== ENCOUNTER 2017-12-29 22:33 | Inpatient (IN) | payer MEDICARE ==
[~2017-12-29] VITALS: Ht 161.3 cm; Wt 62.6 kg
[2017-12-29] MEDS ORDERED: RT-ALBUTEROL SULF 2.5 MG/3 ML PRE-MIX VIAL INH STA (22:46)
[2017-12-29] MEDS ORDERED: NS IV 1000 ML 1,000 ML IV SCH (22:46)
[2017-12-29] MEDS ORDERED: RT-ALBUTEROL/IPRATROPIUM 3 ML (DUONEB) VIAL ONE (22:47)
--- NOTE | 2017-12-29 22:52 | ED Respiratory ---
General Chief Complaint: Respiratory Problems Stated Complaint: SOB Source: patient, family Exam Limitations: clinical condition History of Present Illness Date Seen by Provider: Dec 29, 2017 Time Seen by Provider: 22:36 Initial Comments Patient presents to ER by private conveyance with her and daughter and found dyspnea is her chief complaint. She says is been getting worse progressively over the last couple days. She's been using her DuoNeb inhaler less than 10 times in the past 24 hours. She says is not working as well as a more. She was recently admitted to the ICU for COPD exacerbation. She's had no fevers chills or chest pain. No nausea vomiting or diarrhea. She is on day 3 of 40 mg prednisone and azithromycin for outpatient treatment of bronchitis. She takes 10 mg prednisone daily at baseline. Allergies and Home Medications Allergies Coded Allergies: tramadol (Unverified Allergy, Mild, 12/29/17) Penicillins (Verified Allergy, Unknown, 07/08/13) Sulfa (Sulfonamide Antibiotics) (Verified Allergy, Unknown, 07/08/13) sumatriptan (Verified Allergy, Unknown, 07/08/13) Home Medications Albuterol Sulfate 2.5 Mg/3 Ml Vial.neb, 2.5 MG NEB Q4H PRN for WHEEZING, ( Reported) Albuterol Sulfate 18 Gm Hfa.aer.ad, 2 PUFF INH Q4H PRN for SHORTNESS OF BREATH, (Reported) Ascorbate Calcium 500 Mg Tablet, 500 MG PO DAILY, (Reported) Aspirin 81 Mg Tablet.dr, 81 MG PO HS, (Reported) Cetirizine HCl 10 Mg Tablet, 10 MG PO DAILY, (Reported) Desvenlafaxine Succinate 100 Mg Tab.er.24h, 100 MG PO DAILY, (Reported) Ferrous Sulfate 325 Mg Tablet, 325 MG PO BID, (Reported) Fluticasone/Umeclidin/Vilanter 1 Each Blst.w.dev, 1 EACH IH DAILY, (Reported) Folic Acid 0.4 Mg Tablet, 0.4 MG PO DAILY, (Reported) Ipratropium/Albuterol Sulfate 3 Ml Ampul.neb, 3 ML NEB BID, (Reported) Isosorbide Mononitrate 30 Mg Tab.er.24h, 30 MG PO DAILY, (Reported) Lorazepam 1 Mg Tablet, 1 MG PO BID, (Reported) Magnesium Oxide 250 Mg Tablet, 500 MG PO DAILY, (Reported) TAKE 2 (250MG) TABLETS ONCE DAILY Metoprolol Tartrate 25 Mg Tablet, 25 MG PO BID, (Reported) Montelukast Sodium 10 Mg Tablet, 10 MG PO HS, (Reported) Nitroglycerin 0.4 Mg Tab.subl, 0.4 MG SL UD PRN for CHEST PAIN, (Reported) Prednisone 10 Mg Tab, 10 MG PO DAILY, (Reported) Patient Home Medication List Home Medication List Reviewed: Yes Review of Systems Review of Systems Constitutional: No chills, No diaphoresis EENTM: No ear discharge, No hearing loss, No ear pain Respiratory: cough, dyspnea on exertion, short of breath, wheezing Cardiovascular: No chest pain, No palpitations Gastrointestinal: No abdominal pain, No constipation, No diarrhea, No nausea, No vomiting Genitourinary: No discharge, No dysuria Musculoskeletal: No back pain, No joint pain Past Vzwndrn-Xxzuce-Exgezh Hx Patient Social History Alcohol Use: Denies Use Recreational Drug Use: No Smoking Status: Current Everyday Smoker Type Used: Cigarettes Recent Foreign Travel: No Contact w/Someone Who Travel: No Recent Hopitalizations: No Immunizations Up To Date Tetanus Booster (TDap): Unknown Date of Pneumonia Vaccine: Oct 08, 2002 Date of Influenza Vaccine: Mar 17, 2017 Seasonal Allergies Seasonal Allergies: Yes Past Medical History Surgeries: Yes Adenoidectomy, Breast, Cardiac, Coronary Stent, Hysterectomy, Oophorectomy, Tonsillectomy Respiratory: Yes (wears oxygen) Asthma, Chronic Bronchitis, COPD Currently Using CPAP: No Currently Using BIPAP: No Cardiac: Yes Coronary Artery Disease Neurological: Yes Headaches /Migraines Female Reproductive Disorders: 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 0.0oz. [id number]; 24.1 BMI Method:Stated General Appearance: severe distress, other (Disheveled) Eyes: Bilateral Eye Normal Inspection, Bilateral Eye PERRL, Bilateral Eye EOMI HEENT: PERRL/EOMI, normal ENT inspection, pharynx normal Neck: non-tender, normal inspection Respiratory: chest non-tender, respiratory distress (Moderate), decreased breath sounds, accessory muscle use (Moderate), wheezing, expiration Cardiovascular: normal peripheral pulses, regular rate, rhythm, no edema, no JVD, tachycardia Gastrointestinal: non tender, soft Neurologic/Psychiatric: alert, normal mood/affect, oriented x 3 Skin: normal color, warm/dry Focused Exam Lactate Level 12/29/17 22:40: Lactic Acid Level 2.61*H Lactic Acid Level Laboratory Tests Test 12/29/17 22:40 Lactic Acid Level 2.61 MMOL/L (0.50-2.00) *H Progress/Results/Core Measures Suspected Sepsis SIRS Temperature: Pulse: Respiratory Rate: Laboratory Tests 12/29/17 22:40: White Blood Count 14.9H Blood Pressure / Mean: 12/29/17 22:40: Lactic Acid Level 2.61*H Laboratory Tests 12/29/17 22:40: Creatinine 0.74, Platelet Count 392, Total Bilirubin 0.4 Results/Orders Lab Results Laboratory Tests Test 12/29/17 22:40 12/29/17 23:26 Range/Units White Blood Count 14.9 H 4.3-11.0 10^3/uL Red Blood Count 4.50 4.35-5.85 10^6/uL Hemoglobin 13.6 11.5-16.0 G/DL Hematocrit 41 35-52 % Mean Corpuscular Volume 90 80-99 FL Mean Corpuscular Hemoglobin 30 25-34 PG Mean Corpuscular Hemoglobin Concent 34 32-36 G/DL Red Cell Distribution Width 12.7 10.0-14.5 % Platelet Count 392 130-400 10^3/uL Mean Platelet Volume 9.3 7.4-10.4 FL Neutrophils (%) (Auto) 76 H 42-75 % Lymphocytes (%) (Auto) 11 L 12-44 % Monocytes (%) (Auto) 12 0-12 % Eosinophils (%) (Auto) 1 0-10 % Basophils (%) (Auto) 0 0-10 % Neutrophils # (Auto) 11.3 H 1.8-7.8 X 10^3 Lymphocytes # (Auto) 1.6 1.0-4.0 X 10^3 Monocytes # (Auto) 1.8 H 0.0-1.0 X 10^3 Eosinophils # (Auto) 0.2 0.0-0.3 10^3/uL Basophils # (Auto) 0.1 0.0-0.1 10^3/uL Neutrophils % (Manual) 71 % Lymphocytes % (Manual) 15 % Monocytes % (Manual) 9 % Eosinophils % (Manual) 4 % Basophils % (Manual) 1 % Band Neutrophils 0 % Blood Morphology Comment NORMAL Sodium Level 137 135-145 MMOL/L Potassium Level 4.9 3.6-5.0 MMOL/L Chloride Level 99 98-107 MMOL/L Carbon Dioxide Level 23 21-32 MMOL/L Anion Gap 15 H 5-14 MMOL/L Blood Urea Nitrogen 14 7-18 MG/DL Creatinine 0.74 0.60-1.30 MG/DL Estimat Glomerular Filtration Rate > 60 BUN/Creatinine Ratio 19 Glucose Level 178 H 70-105 MG/DL Lactic Acid Level 2.61 *H 0.50-2.00 MMOL/L Calcium Level 9.4 8.5-10.1 MG/DL Corrected Calcium 9.2 8.5-10.1 MG/DL Total Bilirubin 0.4 0.1-1.0 MG/DL Aspartate Amino Transf (AST/SGOT) 20 5-34 U/L Alanine Aminotransferase (ALT/SGPT) 15 0-55 U/L Alkaline Phosphatase 67 40-136 U/L C-Reactive Protein High Sensitivity 1.46 H 0.00-0.50 MG/DL Total Protein 7.1 6.4-8.2 GM/DL Albumin 4.2 3.2-4.5 GM/DL Blood Gas Puncture Site RT RADIAL Blood Gas Patient Temperature 97.4 Arterial Blood pH 7.32 *L 7.37-7.43 Arterial Blood Partial Pressure CO2 60 H 35-45 MMHG Arterial Blood Partial Pressure O2 89 79-93 MMHG Arterial Blood HCO3 30 H 23-27 MMOL/L Arterial Blood Total CO2 31.9 H 21.0-31.0 MMOL/L Arterial Blood Oxygen Saturation 97 94-100 % Arterial Blood Base Excess 4.1 H -2.5-2.5 MMOL/L John Test POSITIVE Blood Gas Ventilator Setting YES Blood Gas Inspired Oxygen 50% My Orders Orders - JUAN MARTINEZ Cbc With Automated Diff (12/29/17 22:46) Comprehensive Metabolic Panel (12/29/17 22:46) Hs C Reactive Protein (12/29/17 22:46) Blood Culture (12/29/17 22:46) Sputum Culture (12/29/17 22:46) Chest 1 View, Ap/Pa Only (12/29/17 22:46) Albuterol Pre-Mix Nebs (Rt) (Proventil (12/29/17 22:46) Albuterol/Ipra Inhalation Soln (Duoneb I (12/29/17 23:00) Rt Request For Service (12/29/17 22:46) Saline Lock/Iv-Start (12/29/17 22:46) Ns Iv 1000 Ml (Sodium Chloride 0.9%) (12/29/17 22:46) Lactic Acid Analyzer (12/29/17 22:46) Svn Small Volume Nebulizer (12/29/17 22:46) Albuterol/Ipra Inhalation Soln (Duoneb I (12/29/17 22:47) Methylprednisolone Sod Succ (Solu-Medrol (12/29/17 23:00) Cefepime Injection (Maxipime Injection) (12/29/17 23:00) Manual Differential (12/29/17 22:40) Arterial Blood Gas (12/29/17 23:26) Medications Given in ED Current Medications Medications Dose Ordered Sig/Tyrone Route Start Time Stop Time Status Last Admin Dose Admin Albuterol/ Ipratropium 3 ml ONCE ONCE INH 12/29/17 23:00 12/29/17 23:01 DC 12/29/17 23:14 3 ML Cefepime HCl 2000 mg/Sodium Chloride 50 ml @ 100 mls/hr ONCE ONCE IV 12/29/17 23:00 12/29/17 23:29 DC 12/29/17 23:06 100 MLS/HR Methylprednisolone Sodium Succinate 125 mg ONCE ONCE IVP 12/29/17 23:00 12/29/17 23:01 DC 12/29/17 23:06 125 MG Vital Signs/I&O 12/29/17 12/29/17 22:35 23:15 Temp 97.4 Pulse 108 105 Resp 28 23 B/P (MAP) 127/84 (98) Pulse Ox 85 98 O2 Flow Rate 50.00 Capillary Refill : Progress Note #1: Time: 22:51 Progress Note DuoNeb and 5 mg albuterol as well as an ABG and BiPAP, labs chest x-ray and will reassess. Progress Note #2: Time: 23:50 Progress Note He did she does have a mildly elevated white count and lactate however is felt to be because of dehydration and steroids. We'll go ahead and hydrate her up and repeat a chest x-ray in the morning and see if there is any evidence of pneumonia and keep the antibiotics going. Azithromycin and cefepime. ECG Initial ECG Impression Date: Dec 29, 2017 Diagnostic Imaging Diagonstic Imaging: Xray Plain Films/CT/US/NM/MRI: chest (1 view) Comments COPD. Reviewed: Reviewed by Me Departure Communication (Admissions) Time/Spoke to Admitting Phy: 23:51 Dr. Fischer discussed case lab imaging findings EKG and plan to keep going with steroids and antibiotics. Impression Primary Impression: COPD exacerbation Additional Impressions: Acute on chronic respiratory failure with hypoxia and hypercapnia Pneumonia Qualified Codes: J18.9 - Pneumonia, unspecified organism Sepsis Qualified Codes: A41.9 - Sepsis, unspecified organism Disposition: ADMITTED INPATIENT Condition: Stable Admissions Decision to Admit Reason: Admit from ER (General) Decision to Admit/Date: Dec 29, 2017 Time/Decision to Admit Time: 23:53 Departure-Patient Inst. Referrals: [facility] (PCP) Primary Care Physician CASEY SMIPSON (Family) Primary Care Physician Copy Copies To 1: ANA FISCHER TITUS J Dec 29, 2017 22:52
[2017-12-29 22:56] LABS: BASOPHILS # (AUTO) 0.1 10^3/uL (0.0-0.1); BASOPHILS % (AUTO) 0 % (0-10); EOSINOPHILS # (AUTO) 0.2 10^3/uL (0.0-0.3); EOSINOPHILS % (AUTO) 1 % (0-10); HEMATOCRIT 41 % (35-52); HEMOGLOBIN 13.6 G/DL (11.5-16.0); LYMPHOCYTES # (AUTO) 1.6 X 10^3 (1.0-4.0); LYMPHOCYTES % (AUTO) 11 % (12-44); MEAN CORPUSCULAR HEMOGLOBIN 30 PG (25-34); MEAN CORPUSCULAR HGB CONC 34 G/DL (32-36); MEAN CORPUSCULAR VOLUME 90 FL (80-99); MEAN PLATELET VOLUME 9.3 FL (7.4-10.4); MONOCYTES # (AUTO) 1.8 X 10^3 (0.0-1.0); MONOCYTES % (AUTO) 12 % (0-12); NEUTROPHILS # (AUTO) 11.3 X 10^3 (1.8-7.8); NEUTROPHILS % (AUTO) 76 % (42-75); PLATELET COUNT 392 10^3/uL (130-400); RED CELL DISTRIBUTION WIDTH 12.7 % (10.0-14.5); WHITE BLOOD COUNT 14.9 10^3/uL (4.3-11.0)
[2017-12-29] MEDS ORDERED: CEFEPIME INJECTION 2,000 MG in NS (IVPB) 50 ML IV ONE (23:00)
[2017-12-29] MEDS ORDERED: RT-ALBUTEROL/IPRATROPIUM 3 ML (DUONEB) VIAL INH ONE (23:00)
[2017-12-29] MEDS ORDERED: methylPREDNISolone 125 MG (Solu-MEDROL) VIAL IVP ONE (23:00)
[2017-12-29 23:20] LABS: ALANINE AMINOTRANSFERASE 15 U/L (0-55); ALBUMIN 4.2 GM/DL (3.2-4.5); ALKALINE PHOSPHATASE 67 U/L (40-136); BILIRUBIN,TOTAL 0.4 MG/DL (0.1-1.0); BUN/CREATININE RATIO 19; CALCIUM 9.4 MG/DL (8.5-10.1); CARBON DIOXIDE 23 MMOL/L (21-32); CHLORIDE 99 MMOL/L (98-107); CREATININE SERUM 0.74 MG/DL (0.60-1.30); GFR ESTIMATED > 60; GLUCOSE 178 MG/DL (70-105); POTASSIUM 4.9 MMOL/L (3.6-5.0); SODIUM 137 MMOL/L (135-145); TOTAL PROTEIN 7.1 GM/DL (6.4-8.2)
[2017-12-29 23:25] LABS: BAND NEUTROPHILS 0 %; BASOPHILS % (MANUAL) 1 %; EOSINOPHILS % (MANUAL) 4 %; LYMPHOCYTES % (MANUAL) 15 %; MONOCYTES % (MANUAL) 9 %; NEUTROPHILS % (MANUAL) 71 %
[2017-12-29 23:26] LABS: RBC MORPH NORMAL
[2017-12-29 23:29] LABS: ABG BASE EXCESS 4.1 MMOL/L (-2.5-2.5); ABG OXYGEN SATURATION 97 % (94-100); ABG PCO2 60 MMHG (35-45); ABG PH 7.32 (7.37-7.43); ABG PO2 89 MMHG (79-93); ABG TCO2 31.9 MMOL/L (21.0-31.0)
[2017-12-29 23:30] LABS: ALLENS TEST POSITIVE
[2017-12-29 23:31] LABS: INSPIRED O2 50%; PATIENT TEMP 97.4; VENTILATOR YES
[2017-12-29] MEDS ORDERED: NS IV 500 ML 500 ML IV ONE (23:46)
[2017-12-30] MEDS ORDERED: LORazepam INJ 2 MG/ML (ATIVAN) VIAL IVP ONE
--- OUTSIDE RECORDS SUMMARY | 2017-12-30 00:27 | XMS REPORT ---
Author Author CASEY SIMPSON Organization [facility] [place] Address [address] [place] [address] Care Team Providers Care Application Software Developer Name Role Phone CASEY SIMPSON Unavailable PROBLEMS Type Condition ICD9-CM Code YZM53-IC Code Onset Dates Condition Status SNOMED Code Problem Other emphysema J43.8 Active 20635193 Problem Other iron deficiency anemia D50.8 Active 36034058 Problem Reactive depression F32.9 Active 47385800 Problem Dysthymic disorder F34.1 Active 40639843 Problem Atherosclerotic heart disease of [place] coronary artery without angina pectoris I25.10 Active [id number] Problem Coarse tremors G25.2 Active 50163318 Problem Claustrophobia F40.240 Active 93070979 Problem Chronic prescription benzodiazepine use Z79.899 Active 617169937 Problem Benign familial tremor G25.0 Active 751397633 Problem Mixed hyperlipidemia E78.2 Active 540263888 Problem CAD (coronary artery disease) 414.00 Active 84519269 Problem Supplemental oxygen dependent Z99.81 Active 123864273596 Problem Essential hypertension I10 Active 90652120 Problem Chronic obstructive pulmonary disease with acute exacerbation J44.1 Active 452543801 Problem Memory loss R41.3 Active 02780296 Problem Anxiety F41.9 Active 32455798 Problem Pulmonary emphysema, unspecified emphysema type J43.9 Active 47673251 Problem Nicotine abuse Z72.0 Active 59301434 Problem Irritable bowel syndrome with diarrhea K58.0 Active 998208193 ALLERGIES No Information ENCOUNTERS Encounter Location Date Diagnosis [facility] [place] [id number] [address] Jan, [facility] [place] [id number] [address] Dec, Anxiety F41.9 [facility] [place] [id number] [place] [address] 13984- 1543 20 Nov, 2017 Atherosclerotic heart disease of [place] coronary artery without angina pectoris I25.10 [facility] [id number] [place] [address] 61949- 8685 Nov, Pulmonary emphysema, unspecified emphysema type J43.9 ; Therapeutic drug monitoring Z51.81 ; Anxiety F41.9 ; Atherosclerotic heart disease of [place] coronary artery without angina pectoris I25.10 ; Dysthymic disorder F34.1 ; Encounter for screening mammogram for breast cancer Z12.31 and Encounter for immunization Z23 [place] [id number] [place] [address] 97837- 0532 Nov, Anxiety F41.9 [place] [id number] [place] [address] 89362- 9212 30 Oct, 2017 [place] [id number] [place] [address] 19715- 9100 Oct, [facility] [id number] [place] [address] 34034- 6280 Oct, Anxiety F41.9 [place] [id number] [place] [address] 47061- 0301 Sep, [place] [id number] [place] [address] 85905- 9855 Sep, [place] [id number] [place] [address] 24052- 1639 14 Sep, 2017 Anxiety F41.9 [place] [id number] [place] [address] 15561- 4524 13 Sep, 2017 Pulmonary emphysema, unspecified emphysema type J43.9 ; Other iron deficiency anemia D50.8 ; Pain of toe of left foot M79.675 and Pain in right toe(s) M79.674 [place] [id number] [place] [address] 59454- 1145 05 Sep, 2017 Mouth pain K13.79 [place] [address] [place] [address] 71962- 1472 Sep, Pain, dental K08.89 [place] [address] 75655- 8902 Sep, [facility] [place] [address] 21131- 1378 Sep, Pulmonary emphysema, unspecified emphysema type J43.9 ; Nicotine abuse Z72.0 ; Diarrhea, unspecified type R19.7 ; Mouth pain K13.79 and Vision changes H53.9 [place] [address] 95122- 6541 Sep, [place] [address] 19879- 5041 August, Anxiety F41.9 [place] [address] 14771- 0869 Jul, Anxiety F41.9 [place] [address] 74600- 1479 Jun, Pulmonary emphysema, unspecified emphysema type J43.9 and Anxiety F41.9 [place] [address] 88786- 8824 Jun, Anxiety F41.9 [place] [address] 28354- 8802 Jun, [place] [address] 14258- 0320 Jun, [facility] [place] [id number] [place] [address] 24631- 9270 Jun, [facility] [address] 25317 -8031 Jun, Dysuria R30.0 and Acute cystitis with hematuria N30.01 [place] [id number] [place] [address] 57105- 1954 May, Anxiety F41.9 and Chronic prescription benzodiazepine use Z79.899 [facility] [place] [id number] [place] [address] 62776- 5512 May, Anxiety F41.9 and Chronic prescription benzodiazepine use Z79.899 [facility] [place] [id number] [place] [address] 04719- 5346 May, Benign familial tremor G25.0 [facility] [place] [address] 83616- 8202 Apr, Other iron deficiency anemia D50.8 [facility] [place] [address] 59356- 6284 Apr, Anxiety F41.9 [place] [address] 54256- 0845 Apr, [place] [address] 42370- 4339 Apr, Pancreatic cyst K86.2 ; Other iron deficiency anemia D50.8 ; Pulmonary emphysema, unspecified emphysema type J43.9 ; Coarse tremors G25.2 and Claustrophobia F40.240 [place] [address] 91903- 2765 Apr, Anxiety F41.9 [place] [id number] [place] [address] 09912- 5733 Mar, [facility] [place] [address] 93496- 0933 Mar, Anxiety F41.9 [facility] [place] [id number] [place] [address] 44964- 5978 Feb, Anxiety F41.9 [place] [address] 68030- 3824 Jan, [facility] [place] [id number] [place] [address] 63456- 9384 Jan, [facility] [place] [address] 07522- 0948 Jan, Anxiety F41.9 [place] [address] 52849- 3116 Jan, Pulmonary emphysema, unspecified emphysema type J43.9 ; Encounter for immunization Z23 ; Other iron deficiency anemia D50.8 ; Anxiety F41.9 ; Diarrhea, unspecified type R19.7 and Memory loss R41.3 [place] [address] 00386- 7370 Dec, Anxiety F41.[address] 08276- 2215 07 Dec, 2016 Irritable bowel syndrome with diarrhea K58.[address] 50750- 6099 05 Dec, 2016 Diarrhea, unspecified type R19.7 [place] [address] 65332- 9108 Nov, Acute non-recurrent maxillary sinusitis J01.00 ; Pulmonary emphysema, unspecified emphysema type J43.9 ; Diarrhea, unspecified type R19.7 and Other iron deficiency anemia D50.8 [place] [address] 60545- 3375 Nov, [facility] [address] 07053 -9099 Nov, Sore throat J02.9 and Strep pharyngitis J02.0 [place] [address] 84799- 2699 Nov, Other iron deficiency anemia D50.8 [place] [address] 72346- 4864 Nov, Anxiety F41.9 and Low hemoglobin D64.9 [place] [address] 78569- 7878 Oct, Anxiety F41.9 [place] [id number] [place] [address] 24158- 0207 16 Sep, 2016 Anxiety F41.9 [facility] [id number] [place] [address] 58359- 9855 13 Sep, 2016 Left upper quadrant pain R10.12 [place] [address] 95718- 9018 07 Sep, 2016 Other iron deficiency anemia D50.8 and Left upper quadrant pain R10.12 [place] [id number] [place] [address] 62360- 6628 August, Anxiety F41.9 [place] [address] 45446- 7683 August, Other iron deficiency anemia D50.8 and Left upper quadrant pain R10.12 [place] [address] 80375- 0528 Jul, Other iron deficiency anemia D50.8 ; Acute gastric ulcer with hemorrhage K25.0 and Anxiety F41.9 [place] [address] 18856- 0546 Jul, Other iron deficiency anemia D50.8 ; Other fatigue R53.83 ; Nicotine abuse Z72.0 ; Anxiety F41.9 and Pulmonary emphysema, unspecified emphysema type J43.9 [place] [id number] [place] [address] 33023- 0094 Jun, Other iron deficiency anemia D50.8 and Hematochezia K92.1 [place] [id number] [place] [address] 95263- 8004 Jun, Other fatigue R53.83 and Other iron deficiency anemia D50.8 [place] [id number] [place] [address] 68615- 1275 Jun, Other fatigue R53.83 [place] [address] 41249- 3488 Jun, Other iron deficiency anemia D50.8 ; Nicotine abuse Z72.0 ; Anxiety F41.9 and Pulmonary emphysema, unspecified emphysema type J43.9 [place] [id number] [place] [address] 39380- 4377 Jun, Low hemoglobin D64.9 [place] [address] 55593- 3404 16 Jun, 2016 Low hemoglobin D64.9 [place] [address] 97893- 1326 Jun, Anxiety F41.9 ; Nicotine abuse Z72.0 and Reactive depression F32.9 [place] [id number] [place] [address] 53135- 7016 Jun, Anxiety F41.9 [place] [address] 13837- 9361 May, Anxiety F41.9 ; Nicotine abuse Z72.0 and Reactive depression F32.9 [place] [id number] [place] [address] 82062- 0867 May, Anxiety F41.9 [place] [id number] [place] [address] 68571- 9011 May, Anxiety F41.9 ; Nicotine abuse Z72.0 and Reactive depression F32.9 [place] [id number] [place] [address] 56857- 0455 May, [place] [id number] [place] [address] 23706- 6770 May, [place] [id number] [place] [address] 88037- 6699 May, Anxiety F41.9 [place] [id number] [place] [address] 95876- 6582 May, Other emphysema J43.8 ; Cramping of hands R25.2 ; Irritable bowel syndrome with diarrhea K58.0 ; Breast cancer screening Z12.39 ; Candidal stomatitis B37.0 and Candidal esophagitis B37.81 [place] [id number] [place] [address] 21231- 2207 10 Apr, 2016 Anxiety F41.9 [place] [id number] [place] [address] 51690- 8091 Mar, Anxiety F41.9 [facility] [place] [address] 43185- 3652 Feb, Anxiety F41.9 [place] [address] 28600- 6889 Jan, Anxiety F41.9 [place] [address] 33835- 1745 Jan, Anxiety F41.9 [place] [address] 85808- 7974 Jan, Anxiety F41.9 [place] [id number] [place] [address] 35468- 4225 Jan, Anxiety F41.9 ; Nicotine abuse Z72.0 ; Pulmonary emphysema, unspecified emphysema type J43.9 ; Memory loss R41.3 and Abdominal pain, unspecified location R10.9 [place] [id number] [place] [address] 55859- 2573 Jan, [facility] [place] [id number] [place] [address] 20403- 0530 Dec, Anxiety F41.9 [facility] [id number] [place] [address] 53268 -1491 Dec, Right arm pain M79.601 [place] [id number] [place] [address] 97264- 9165 Nov, Anxiety F41.9 [place] [address] [place] [address]- 4183 Oct, Anxiety F41.9 [facility] [place] [id number] [place] [address] 81016- 0392 Oct, [facility] [place] [id number] [place] [address] 64710- 8881 Sep, Anxiety F41.9 [facility] [place] [id number] [place] [address] 04886- 1258 Sep, Left lower quadrant pain R10.32 ; Memory loss R41.3 and Basal cell carcinoma of skin, unspecified C44.91 [facility] [place] [id number] [place] [address] 48007- 8989 Sep, Anxiety F41.9 [facility] [place] [id number] [place] [address] 56843- 7192 August, Anxiety F41.9 [facility] [place] [id number] [place] [address] 17778- 1407 August, Left lower quadrant pain R10.32 ; Memory loss R41.3 ; Pulmonary emphysema, unspecified emphysema type J43.9 and Depression, unspecified depression type F32.9 [facility] [place] [address] [address]- 9357 August, [facility] [place] [address] [address]- 7247 Jul, [facility] [place] [id number] [place] [address] 44727- 5092 Jun, [facility] [place] [id number] [place] [address] 87062- 4921 May, [facility] [place] [id number] [place] [address] 51395- 9615 Apr, [facility] [place] [address] [address]- 0322 Apr, Chronic obstructive pulmonary disease with acute exacerbation J44.1 ; Anxiety F41.9 and Nicotine abuse Z72.0 [facility] [place] [id number] [place] [address] 11479- 8748 Apr, [facility] [place] [id number] [place] [address] 15124- 3604 Mar, Anxiety disorder, unspecified F41.9 [facility] [place] [address] 27396- 9577 Mar, [facility] [place] [address] 55859- 3135 Feb, [facility] [place] [address] 76852- 6158 Nov, [facility] [place] [address] 11496- 9097 Nov, [facility] [place] [address] 97623- 5953 Nov, Basal cell carcinoma 173.91 and Astigmatism with presbyopia 367.20 [facility] [place] [id number] [place] [address] 25014- 3565 Oct, [facility] [place] [address] 28498- 5966 Oct, Lipoma 214.9 [facility] [place] [id number] [place] [address] 46327- 3197 Sep, Ganglion cyst 727.43 ; Chronic airway obstruction, not elsewhere classified 496 ; Hypertension 401.9 ; CAD (coronary artery disease) 414.00 and Dysthymia 300.4 [facility] [place] [id number] [place] [address] 98827- 2338 Jul, [facility] [place] [address] 57831- 3679 Jul, [facility] [place] [id number] [place] [address] 26854- 9140 Jun, [facility] [place] [facility] [address] [id number] [place] [address]- 5332 Jun, [facility] [place] [facility] [address] [id number] [place] [address]- 2324 Jun, [facility] [place] [facility] [address] [id number] [place] [address]- 8705 Jun, [facility] [place] [facility] [address] [id number] [place] [address]- 0422 May, [facility] [place] [facility] [address] [id number] [place] [address]- 5702 May, [facility] [place] [facility] [address] [id number] [place] [address]- 2161 Mar, [facility] [place] [facility] [address] [id number] [place] [address]- 7716 Mar, [facility] [place] [facility] [address] [id number] [place] [address]- 6041 Mar, [facility] [place] [facility] [address] [id number] [place] [address]- 5088 Mar, [facility] [place] [facility] [address] [id number] [place] [address]- 1178 Feb, [facility] [place] [facility] [address] [id number] [place] [address]- 8500 Feb, [facility] [place] [facility] [address] [id number] [place] [address]- 0306 Feb, [facility] [place] [facility] [address] [id number] [place] [address]- 6621 Feb, [facility] [place] [facility] [address] [id number] [place] [address]- 3730 Feb, [facility] [place] [facility] [address] [id number] [place] [address]- 4102 Feb, [facility] [place] [facility] [address] [id number] [place] [address]- 2936 Feb, [facility] [place] [facility] [address] [id number] [place] [address]- 6115 Feb, [facility] [place] [facility] [address] [id number] [place] [address]- 7000 Feb, [facility] [place] [facility] [address] [id number] [place] [address]- 5651 Feb, [facility] [place] [facility] [address] [id number] [place] [address]- 2145 Dec, [facility] [place] [facility] [address] [id number] [place] [address]- 0850 Dec, [facility] [place] [facility] [address] [id number] [place] [address]- 0752 Nov, [facility] [place] [facility] [address] [id number] [place] [address]- 8265 Oct, [facility] [place] [facility] [address] [id number] [place] [address]- 3203 Oct, [facility] [place] [facility] [address] [id number] [place] [address]- 6643 August, [facility] [place] [facility] [address] [id number] [place] [address]- 5981 August, [facility] [place] [facility] [address] [id number] [place] [address]- 9241 August, [facility] [place] [facility] [address] [id number] [place] [address]- 9622 August, [facility] [place] [facility] [address] [id number] [place] [address]- 3083 Jul, [facility] [place] [facility] [address] [id number] [place] [address]- 9138 Jul, [facility] [place] [facility] [address] [id number] [place] [address]- 4921 Jun, [facility] [place] [facility] [address] [id number] [place] [address]- 9947 27 Jun, 2013 [facility] [place] [facility] [address] [id number] [place] [address]- 9285 25 Jun, 2013 [facility] [place] [facility] [address] [id number] [place] [address]- 2976 18 Jun, 2013 [facility] [place] [facility] [address] [id number] [place] [address]- 7207 18 Jun, 2013 [facility] [place] [facility] [address] [id number] [place] [address]- 3014 Jun, [facility] [place] [facility] [address] [id number] [place] [address]- 7393 Jun, [facility] [place] [facility] [address] [id number] [place] [address]- 8674 Jun, [facility] [place] [facility] [address] [id number] [place] [address]- 6124 Jun, [facility] [place] [facility] [address] [id number] [place] [address]- 0886 Jun, [facility] [place] [facility] [address] [id number] [place] [address]- 9227 Jun, [facility] [place] [facility] [address] [id number] [place] [address]- 4362 Jun, [facility] [place] [facility] [address] [id number] [place] [address]- 2119 Jun, [facility] [place] [facility] [address] [id number] [place] [address]- 3817 Jun, [facility] [place] [facility] [address] [id number] [place] [address]- 7320 Jun, [facility] [place] [facility] [address] [id number] [place] [address]- 3143 Jun, [facility] [place] [facility] [address] [id number] [place] [address]- 5609 Jun, [facility] [place] [facility] [address] [id number] [place] [address]- 0884 Jun, [facility] [place] [facility] [address] [id number] [place] [address]- 2390 Jun, [facility] [place] [facility] [address] [id number] [place] [address]- 2000 May, [facility] [place] [facility] [address] [id number] [place] [address]- 7136 May, [facility] [place] [facility] [address] [id number] [place] [address]- 5936 May, [facility] [place] [facility] [address] [id number] [place] [address]- 1967 May, [facility] [place] [facility] [address] [id number] [place] [address]- 0773 Apr, [facility] [place] [facility] [address] [id number] [place] [address]- 0840 Apr, [facility] [place] [facility] [address] [id number] [place] [address]- 5777 Mar, [facility] [place] [facility] [address] [id number] [place] [address]- 9934 Mar, [facility] [place] [facility] [address] [id number] [address]- 0133 Mar, [facility] [place] [facility] [address] [id number] [place] [address] Mar, [facility] [place] [facility] [address] [id number] [place] [address] Mar, [facility] [place] [facility] [address] [id number] [place] [address] Mar, [facility] [place] [facility] [address] [facility] [id number] [place] [address] Mar, [facility] [place] [facility] [address] [id number] [place] [address] Mar, [facility] [address] [id number] [place] [address] Mar, [facility] [place] [facility] [address] [id number] [place] [address] Mar, [facility] [place] [facility] [address] [id number] [place] [address] Mar, [facility] [place] [facility] [address] [id number] [place] [address] Feb, [facility] [place] [facility] [address] [id number] [place] [address] Feb, [facility] [place] [facility] [address] [id number] [place] [address] Jan, [facility] [place] [facility] [address] [id number] [place] [address] Jan, [facility] [place] [facility] [address] [id number] [place] [address] Jan, [facility] [place] [facility] [address] [id number] [place] [address] Nov, [facility] [place] [facility] [address] [id number] [place] [address] Oct, [facility] [place] [facility] [address] [id number] [place] [address] Oct, [facility] [place] [facility] [address] [id number] [place] [address] Oct, [facility] [place] [facility] [address] [id number] [place] [address] Oct, [facility] [place] [facility] [address] [id number] [place] [address] Oct, [facility] [place] [facility] [address] [id number] [place] [address] Oct, [facility] [place] [facility] [address] [id number] [place] [address] Oct, [facility] [address] [id number] [place] [address] Oct, [facility] [place] [facility] [address] [id number] [place] [address] Sep, [facility] [place] [facility] [address] [id number] [place] [address]- [address] Sep, [facility] [address] [id number] [place] [address] Sep, [facility] [place] [facility] [address] [id number] [place] [address]- [address] Sep, [facility] [address] [id number] [place] [address] August, [facility] [address] [id number] [place] [address] August, [facility] [address] [id number] [place] [address] August, [facility] [place] [facility] [address] [id number] [place] [address] August, [facility] [place] [facility] [address] [id number] [place] [address] August, [facility] [place] [facility] [address] [id number] [place] [address]- [address] August, [facility] [place] [facility] [address] [id number] [place] [address] Jul, [facility] [place] [facility] [address] [id number] [place] [address]- [address] May, [facility] [place] [facility] [address] [id number] [place] [address] Apr, [facility] [place] [facility] [address] [id number] [place] [address] Apr, [facility] [place] [facility] [address] [id number] [place] [address] Apr, [facility] [place] [facility] [address] [id number] [place] [id number] [address] Mar, [facility] [place] [facility] [address] [id number] [place] [address]- [address] Mar, [facility] [place] [facility] [address] [id number] [place] [address]- [address] Mar, [facility] [place] [facility] [address] [id number] [place] [address] Mar, [facility] [place] [facility] [address] [id number] [place] [address] Jan, [facility] [place] [facility] [address] [id number] [place] [address] Nov, [facility] [place] [facility] [address] [id number] [place] [address] Sep, [facility] [place] [facility] [address] [id number] [place] [address] August, [facility] [place] [facility] [address] [id number] [place] [address] August, [facility] [place] [facility] [address] [id number] [place] [address] Jul, [facility] [place] [facility] [address] [id number] [place] [address] Jul, [facility] [place] [facility] [address] [id number] [place] [address] Jul, [facility] [place] [facility] [address] [id number] [place] [address] Jul, [facility] [place] [facility] [address] [id number] [place] [address] Jul, [facility] [place] [facility] [address] [id number] [address] 15 Jun, 2011 [facility] [place] [address] [id number] [address] Apr, [facility] [place] [id number] [address] Feb, [facility] [place] [id number] [address] Nov, [facility] [place] [id number] [address] Oct, [facility] [place] [id number] [address] Feb, [facility] [place] [id number] [address] August, [facility] [place] [id number] [address] Jul, [facility] [place] [address] [id number] [address] Jun, IMMUNIZATIONS No Known Immunizations SOCIAL HISTORY Never Assessed REASON FOR VISIT [facility] f/u PLAN OF CARE Activity Details Follow Up 3 Months Reason:COPD VITAL SIGNS Height 63 in 2017-07-12 Weight 134.3 lbs 2017-07-12 Temperature 98.3 degrees Fahrenheit 2017-07-12 Heart Rate 96 bpm 2017-07-12 Respiratory Rate 24 2017-07-12 Oximetry w/ oxygen @ 2L:98 % 2017-07-12 BMI 23.79 kg/m2 2017-07-12 Blood pressure systolic 112 mmHg 2017-07-12 Blood pressure diastolic 72 mmHg 2017-07-12 MEDICATIONS Medication Instructions Dosage Frequency Start Date End Date Duration Status Cetirizine HCl 10 MG Orally Once a day 1 tablet 24h Active Nitroglycerin 0.4 MG Active Ipratropium-Albuterol 0.5-2.5 (3) MG/3ML Inhalation Four times a day 3 ml 6h Active Oxygen Active Vitamin C 500 MG Active Albuterol Sulfate 1.25 mg/3 mL inhale 3 milliliters via nebulizer by Inhalation route 4 times per day PRN as needed Dec, Active PredniSONE 10 MG Orally Once a day 24h Active Trelegy Ellipta Inhalation Once a day 1 puff 24h Active Singulair 10 MG Orally Once a day 1 tablet in the evening 24h Active Ferrous Sulfate 325 (65 Fe) MG Orally Once a day 2 tablets 24h Jun, Active Folic Acid 0.8 mg Orally Once a day 1/2 tablet 24h Active Aspirin 81 mg take 1 tablet (81 mg) by oral route once daily Sep, Active Isosorbide Mononitrate ER 30 MG TAKE ONE TABLET BY MOUTH IN THE MORNING 90 Active Magnesium 250 MG Orally twice a day 1 tablet with a meal 12h Active Plavix 75 mg take 1 tablet (75 mg) by oral route once daily Sep, Active Pristiq 100 MG TAKE ONE TABLET BY MOUTH DAILY 90 Active Metoprolol Tartrate 25 mg take 1 tablet (25 mg) by oral route 2 times per day Sep, Active Ativan 1 MG Orally 2 times a day 1 tablet as needed 12h Jun, 28 days Active RESULTS No Results PROCEDURES Procedure Date Ordered Result Body Site [facility] VISIT ESTABLISHED PATIENT July 12, 2017 INSTRUCTIONS MEDICATIONS ADMINISTERED No Known Medications MEDICAL (GENERAL) HISTORY Type Description Date Medical History IBS Medical History Polycystic Kidney Diseasse Medical History hypertension Medical History Cardiac Stent x1 Medical History COPD Medical History hyperlipidemia Medical History Supplemental oxygen dependent Surgical History hysterectomy Surgical History breast biopsy x 5 Surgical History scar tissue removal Surgical History Upper and lower GI scope Surgical History cataracts 11/2017 Hospitalization History surgeries Hospitalization History cardiac and copd Hospitalization History ER visit for bronchitis 04-26-15 Hospitalization History COPD 08/2017
--- OUTSIDE RECORDS SUMMARY | 2017-12-30 00:28 | XMS REPORT ---
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 Name Role Phone CASEY SIMPSON Unavailable PROBLEMS Type Condition ICD9-CM Code ZTX29-CR Code Onset Dates Condition Status SNOMED Code Problem Other emphysema J43.8 Active 17600237 Problem Other iron deficiency anemia D50.8 Active 18411725 Problem Reactive depression F32.9 Active 84205388 Problem Dysthymic disorder F34.1 Active 99397125 Problem Atherosclerotic heart disease of [place] coronary artery without angina pectoris I25.10 Active [id number] Problem Coarse tremors G25.2 Active 46345286 Problem Claustrophobia F40.240 Active 02049876 Problem Chronic prescription benzodiazepine use Z79.899 Active 049403253 Problem Benign familial tremor G25.0 Active 551550414 Problem Mixed hyperlipidemia E78.2 Active 939546496 Problem CAD (coronary artery disease) 414.00 Active 50558796 Problem Supplemental oxygen dependent Z99.81 Active 078928441044 Problem Essential hypertension I10 Active 23638881 Problem Chronic obstructive pulmonary disease with acute exacerbation J44.1 Active 248405979 Problem Memory loss R41.3 Active 51772640 Problem Anxiety F41.9 Active 68714229 Problem Pulmonary emphysema, unspecified emphysema type J43.9 Active 07747845 Problem Nicotine abuse Z72.0 Active 76535497 Problem Irritable bowel syndrome with diarrhea K58.0 Active 399299400 ALLERGIES No Information ENCOUNTERS Encounter Location Date Diagnosis [facility] [address] [address] Jan, [facility] [address], [place] [address] Nov, Atherosclerotic heart disease of [place] coronary artery without angina pectoris I25.10 [facility] [address] [id number] [place] [address] 16907- 1610 Nov, Pulmonary emphysema, unspecified emphysema type J43.9 ; Therapeutic drug monitoring Z51.81 ; Anxiety F41.9 ; Atherosclerotic heart disease of [place] coronary artery without angina pectoris I25.10 ; Dysthymic disorder F34.1 ; Encounter for screening mammogram for breast cancer Z12.31 and Encounter for immunization Z23 [place] [address] [address]- [address] Nov, Anxiety F41.9 [place] [address] 52698- 8676 Oct, [place] [address] 84508- 3800 Oct, [place] [address] 70299- 9448 Oct, Anxiety F41.9 [place] [address] 78950- 7545 Sep, [place] [address] 70226- 3530 Sep, [place] [address] 67062- 6810 Sep, Anxiety F41.9 [place] [address] [place] [id number] [place] [address] 59796- 7948 Sep, Pulmonary emphysema, unspecified emphysema type J43.9 ; Other iron deficiency anemia D50.8 ; Pain of toe of left foot M79.675 and Pain in right toe(s) M79.674 [place] [address] 12244- 2902 05 Sep, 2017 Mouth pain K13.79 [place] [address] 01544- 7565 04 Sep, 2017 Pain, dental K08.89 [place] [address] 94738- 9044 Sep, [facility] [address] 37168- 3461 Sep, Pulmonary emphysema, unspecified emphysema type J43.9 ; Nicotine abuse Z72.0 ; Diarrhea, unspecified type R19.7 ; Mouth pain K13.79 and Vision changes H53.9 [facility] [address] 72719- 4236 Sep, [facility] [address] 53334- 3687 August, Anxiety F41.9 [place] [address] 10555- 4517 Jul, Anxiety F41.9 [place] [address] 94483- 5910 Jun, Pulmonary emphysema, unspecified emphysema type J43.9 and Anxiety F41.9 [place] [address] 69664- 3972 Jun, Anxiety F41.9 [facility] [address] 31415- 1485 Jun, [facility] [id number] [place] [address] 31274- 7708 Jun, [facility] [id number] [place] [address] 45471- 5168 Jun, [facility] [id number] [place] [address] 85285 -5368 Jun, Dysuria R30.0 and Acute cystitis with hematuria N30.01 [facility] [id number] [place] [address] 69189- 1588 May, Anxiety F41.9 and Chronic prescription benzodiazepine use Z79.899 [facility] [address] 22538- 7635 May, Anxiety F41.9 and Chronic prescription benzodiazepine use Z79.899 [facility] [address] 02449- 7208 May, Benign familial tremor G25.0 [facility] [address] 15606- 7477 Apr, Other iron deficiency anemia D50.8 [facility] [address] 14790- 3898 Apr, Anxiety F41.9 [facility] [address] 95312- 0280 Apr, [facility] [address] 00542- 2363 Apr, Pancreatic cyst K86.2 ; Other iron deficiency anemia D50.8 ; Pulmonary emphysema, unspecified emphysema type J43.9 ; Coarse tremors G25.2 and Claustrophobia F40.240 [facility] [address] 06246- 7792 Apr, Anxiety F41.9 [place] [address] 81815- 6181 Mar, [facility] [address] 59180- 1099 Mar, Anxiety F41.9 [facility] [address] 12366- 6859 Feb, Anxiety F41.9 [facility] [id number] [place] [address] 43269- 1644 Jan, [facility] [address] 43441- 9921 Jan, [facility] [address] 88585- 2421 Jan, Anxiety F41.9 [facility] [address] [place] [id number] [place] [address] 15012- 8037 Jan, Pulmonary emphysema, unspecified emphysema type J43.9 ; Encounter for immunization Z23 ; Other iron deficiency anemia D50.8 ; Anxiety F41.9 ; Diarrhea, unspecified type R19.7 and Memory loss R41.3 [place] [address] 96982- 7566 Dec, Anxiety F41.9 [place] [address] 61130- 3665 07 Dec, 2016 Irritable bowel syndrome with diarrhea K58.0 [place] [address] 700051- 1559 05 Dec, 2016 Diarrhea, unspecified type R19.7 [place] [address] 31134- 0227 Nov, Acute non-recurrent maxillary sinusitis J01.00 ; Pulmonary emphysema, unspecified emphysema type J43.9 ; Diarrhea, unspecified type R19.7 and Other iron deficiency anemia D50.8 [place] [address] 22096- 9029 Nov, [facility] [address] [place] [id number] [place] [address] 70650 -8530 Nov, Sore throat J02.9 and Strep pharyngitis J02.0 [place] [address] [place] [id number] [place] [address] 84002- 5726 Nov, Other iron deficiency anemia D50.8 [place] [address] [place] [id number] [place] [address] 04590- 2178 Nov, Anxiety F41.9 and Low hemoglobin D64.9 [place] [address] [place] [id number] [place] [address] 38094- 5739 Oct, Anxiety F41.9 [place] [address] 23657- 1135 Sep, Anxiety F41.9 [place] [address] [place] [address] 23024- 7173 13 Sep, 2016 Left upper quadrant pain R10.12 [place] [address] [place] [id number] [place] [address] 47847- 8876 07 Sep, 2016 Other iron deficiency anemia D50.8 and Left upper quadrant pain R10.12 [place] [address] [place] [id number] [place] [address] 78982- 9568 17 Aug, 2016 Anxiety F41.9 [place] [address] [place] [id number] [place] [address] 09107- 1120 10 Aug, 2016 Other iron deficiency anemia D50.8 and Left upper quadrant pain R10.12 [place] [address] [place] [id number] [place] [address] 01860- 8919 19 Jul, 2016 Other iron deficiency anemia D50.8 ; Acute gastric ulcer with hemorrhage K25.0 and Anxiety F41.9 [place] [address] [place] [id number] [place] [address] 47607- 6791 18 Jul, 2016 Other iron deficiency anemia D50.8 ; Other fatigue R53.83 ; Nicotine abuse Z72.0 ; Anxiety F41.9 and Pulmonary emphysema, unspecified emphysema type J43.9 [place] [address] [place] [id number] [place] [address] 04067- 5360 31 Jun, 2016 Other iron deficiency anemia D50.8 and Hematochezia K92.1 [place] [address] [place] [id number] [place] [address] 31489- 1382 Jun, Other fatigue R53.83 and Other iron deficiency anemia D50.8 [place] [address] [place] [id number] [place] [address] 26609- 7524 Jun, Other fatigue R53.83 [place] [address] [place] [id number] [place] [address] 31428- 9843 Jun, Other iron deficiency anemia D50.8 ; Nicotine abuse Z72.0 ; Anxiety F41.9 and Pulmonary emphysema, unspecified emphysema type J43.9 [place] [address] [place] [id number] [place] [address] 49744- 4954 17 Jun, 2016 Low hemoglobin D64.9 [place] [address] 27441- 5708 16 Jun, 2016 Low hemoglobin D64.9 [place] [address] 21593- 4117 14 Jun, 2016 Anxiety F41.9 ; Nicotine abuse Z72.0 and Reactive depression F32.9 [place] [address] 12670- 4181 Jun, Anxiety F41.9 [place] [address] 55893- 9169 May, Anxiety F41.9 ; Nicotine abuse Z72.0 and Reactive depression F32.9 [place] [address] 67378- 3169 May, Anxiety F41.9 [place] [address] [place] [id number] [place] [address] 54762- 5811 May, Anxiety F41.9 ; Nicotine abuse Z72.0 and Reactive depression F32.9 [place] [address] 65956- 3343 May, [place] [address] [place] [id number] [place] [address] 78288- 7102 May, [place] [address] [place] [id number] [place] [address] 95808- 1581 May, Anxiety F41.9 [place] [address] [place] [id number] [place] [address] 1795 May, Other emphysema J43.8 ; Cramping of hands R25.2 ; Irritable bowel syndrome with diarrhea K58.0 ; Breast cancer screening Z12.39 ; Candidal stomatitis B37.0 and Candidal esophagitis B37.81 [facility] [id number] [place] [address] 66781- 6662 10 Apr, 2016 Anxiety F41.9 [facility] [address] [id number] [place] [address] 94497- 2419 Mar, Anxiety F41.9 [facility] [address] [id number] [place] [address] 53403- 1793 Feb, Anxiety F41.9 [facility] [address] [id number] [place] [address] 71207- 0606 Jan, Anxiety F41.9 [facility] [address] 78486- 7182 Jan, Anxiety F41.9 [facility] [address] 99749- 7488 Jan, Anxiety F41.9 [facility] [address] 47824- 9328 Jan, Anxiety F41.9 ; Nicotine abuse Z72.0 ; Pulmonary emphysema, unspecified emphysema type J43.9 ; Memory loss R41.3 and Abdominal pain, unspecified location R10.9 [facility] [id number] [place] [address] 32698- 2629 Jan, [facility] [address] [id number] [place] [address] 78724- 3220 Dec, Anxiety F41.9 [facility] [id number] [place] [address] 96046 -3531 Dec, Right arm pain M79.601 [facility] [id number] [place] [address] 53333- 8287 Nov, Anxiety F41.9 [facility] [id number] [place] [address] 97554- 8590 Oct, Anxiety F41.9 [facility] [address] [place] [address]- 5688 Oct, [facility] [id number] [place] [address] 38424- 7448 Sep, Anxiety F41.9 [facility] [address] [id number] [place] [address] 23876- 0103 Sep, Left lower quadrant pain R10.32 ; Memory loss R41.3 and Basal cell carcinoma of skin, unspecified C44.91 [facility] [id number] [place] [address] 99299- 7597 Sep, Anxiety F41.9 [facility] [address] [place] [id number] [place] [address] 72159- 0408 August, Anxiety F41.9 [facility] [address] [id number] [place] [address] 04924- 8584 August, Left lower quadrant pain R10.32 ; Memory loss R41.3 ; Pulmonary emphysema, unspecified emphysema type J43.9 and Depression, unspecified depression type F32.9 [facility] [address] [place] [address] 66642- 3513 August, [facility] [address] [id number] [place] [address] 37805- 2900 Jul, [facility] [address] [place] [address] 46810- 8912 Jun, [facility] [address] [place] [id number] [place] [address] 78395- 0224 May, [facility] [address] [place] [address] 60703- 4820 Apr, [facility] [address] [id number] [place] [address] 11652- 0533 Apr, Chronic obstructive pulmonary disease with acute exacerbation J44.1 ; Anxiety F41.9 and Nicotine abuse Z72.0 [facility] [id number] [place] [address] 27293- 5102 Apr, [facility] [address] [address]- 7103 Mar, Anxiety disorder, unspecified F41.9 [facility] [id number] [place] [address] 57137- 7281 Mar, [facility] [id number] [place] [address] 447322- 0557 Feb, [facility] [id number] [place] [address] 539797- 9259 Nov, [facility] [address] [id number] [place] [address] 285009- 4832 Nov, [facility] [address] [place] [id number] [place] [address] 50869- 0170 Nov, Basal cell carcinoma 173.91 and Astigmatism with presbyopia 367.20 [facility] [address] [id number] [place] [address] 30065- 5551 Oct, [facility] [address] [id number] [place] [address] 70904- 2289 Oct, Lipoma 214.9 [facility] [address] [place] [id number] [place] [address] 56239- 5992 Sep, Ganglion cyst 727.43 ; Chronic airway obstruction, not elsewhere classified 496 ; Hypertension 401.9 ; CAD (coronary artery disease) 414.00 and Dysthymia 300.4 [facility] [id number] [address]- 8531 Jul, [facility] [address] [id number] [place] [address] 280760- 9615 Jul, [facility] [id number] [place] [address] 217712- 8203 Jun, [facility] [address] [address]- 5228 Jun, [facility] [address] [place] [address]- 4641 Jun, [facility] [place] [facility] [address] [id number] [place] [address]- 3535 Jun, [facility] [place] [facility] [address] [id number] [place] [address]- 3262 12 May, 2014 [facility] [place] [facility] [address] [id number] [place] [address]- 0355 May, [facility] [place] [facility] [address] [id number] [place] [address]- 1912 Mar, [facility] [place] [facility] [address] [id number] [place] [address]- 5450 Mar, [facility] [place] [facility] [address] [id number] [place] [address]- 4759 Mar, [facility] [place] [facility] [address] [id number] [place] [address]- 3444 Mar, [facility] [place] [facility] [address] [id number] [place] [address]- 2065 Feb, [facility] [place] [facility] [address] [id number] [place] [address]- 1271 Feb, [facility] [place] [facility] [address] [id number] [place] [address]- 3033 Feb, [facility] [place] [facility] [address] [id number] [place] [address]- 6860 Feb, [facility] [place] [facility] [address] [id number] [place] [address]- 6369 Feb, [facility] [place] [facility] [address] [id number] [place] [address]- 9585 Feb, [facility] [place] [facility] [address] [id number] [place] [address]- 1069 Feb, [facility] [place] [facility] [address] [id number] [place] [address]- 9285 Feb, [facility] [place] [facility] [address] [id number] [place] [address]- 7160 Feb, [facility] [place] [facility] [address] [id number] [place] [address]- 0325 Feb, [facility] [place] [facility] [address] [id number] [place] [address]- 3880 Dec, [facility] [place] [facility] [address] [id number] [place] [address]- 6138 Dec, [facility] [place] [facility] [address] [id number] [place] [address]- 8351 Nov, [facility] [place] [facility] [address] [id number] [place] [address]- 3028 Oct, [facility] [place] [facility] [address] [id number] [place] [address]- 6448 Oct, [facility] [place] [facility] [address] [id number] [place] [address]- 9185 August, [facility] [place] [facility] [address] [id number] [place] [address]- 0348 August, [facility] [place] [facility] [address] [id number] [place] [address]- 1731 August, [facility] [place] [facility] [address] [id number] [place] [address]- 7448 August, [facility] [place] [facility] [address] [id number] [place] [address]- 5949 Jul, [facility] [place] [facility] [address] [id number] [place] [address]- 8469 Jul, [facility] [place] [facility] [address] [id number] [place] [address]- 8032 Jun, [facility] [place] [facility] [address] [id number] [place] 5228 Jun, [facility] [place] [facility] [address] [id number] [place] [address]- 2706 25 Jun, 2013 [facility] [place] [facility] [address] [id number] [place] [address]- 1485 18 Jun, 2013 [facility] [place] [facility] [address] [id number] [place] [address]- 4098 18 Jun, 2013 [facility] [place] [facility] [address] [id number] [place] [address]- 1374 Jun, [facility] [place] [facility] [address] [id number] [place] [address]- 6066 Jun, [facility] [place] [facility] [address] [id number] [place] [address]- 0058 Jun, [facility] [place] [facility] [address] [id number] [place] [address]- 7547 Jun, [facility] [place] [facility] [address] [id number] [place] [address]- 6656 10 Jun, 2013 [facility] [place] [facility] [address] [id number] [place] [address]- 6008 Jun, [facility] [place] [facility] [address] [id number] [place] [address]- 8930 Jun, [facility] [place] [facility] [address] [id number] [place] [address]- 2498 Jun, [facility] [place] [facility] [address] [id number] [place] [address]- 5682 Jun, [facility] [place] [facility] [address] [id number] [place] [address]- 7275 Jun, [facility] [place] [facility] [address] [id number] [place] [address]- 9046 Jun, [facility] [place] [facility] [address] [id number] [place] [address]- 1404 Jun, [facility] [place] [facility] [address] [id number] [place] [address]- 8167 Jun, [facility] [place] [facility] [address] [id number] [place] [address]- 6860 Jun, [facility] [place] [facility] [address] [id number] [place] [address]- 1325 May, [facility] [place] [facility] [address] [id number] [place] 7312 May, [facility] [place] [facility] [address] [id number] [place] [address]- 6724 May, [facility] [place] [facility] [address] [id number] [place] [address]- 6571 May, [facility] [place] [facility] [address] [id number] [place] [address]- 2913 Apr, [facility] [place] [facility] [address] [id number] [place] [address]- 3591 Apr, [facility] [place] [facility] [address] [id number] [place] [address]- 5516 Mar, [facility] [place] [facility] [address] [id number] [place] [address]- 2515 Mar, [facility] [place] [facility] [address] [id number] [place] [address]- 4015 Mar, [facility] [place] [facility] [address] [id number] [place] [address]- 5910 Mar, [facility] [place] [facility] [address] [id number] [place] [address]- 2720 Mar, [facility] [place] [facility] [address] [id number] [place] [address]- 5647 Mar, [facility] [place] [facility] [address] [id number] [place] 6853 Mar, [facility] [place] [facility] [address] [id number] [place] [address]- 3674 Mar, [facility] [place] [facility] [address] [id number] [place] [address]- 1222 Mar, [facility] [place] [facility] [address] [id number] [place] [address]- 7694 Mar, [facility] [place] [facility] [address] [id number] [place] [address]- 3023 Mar, [facility] [place] [facility] [address] [id number] [place] [address]- 2818 Feb, [facility] [place] [facility] [address] [id number] [place] [address]- 0111 Feb, [facility] [place] [facility] [address] [id number] [place] [address]- 0438 Jan, [facility] [place] [facility] [address] [id number] [place] [address]- 6725 Jan, [facility] [place] [facility] [address] [id number] [place] [address]- 9047 Jan, [facility] [place] [facility] [address] [id number] [place] [address]- 4802 Nov, [facility] [place] [facility] [address] [id number] [place] [address]- 3900 Oct, [facility] [place] [facility] [address] [id number] [place] [address]- 3093 Oct, [facility] [place] [facility] [address] [id number] [place] [address] Oct, [facility] [place] [facility] [address] [id number] [place] [address] 16 Oct, 2012 [facility] [place] [facility] [address] [id number] [place] [address] Oct, [facility] [place] [facility] [address] [id number] [place] [address] Oct, [facility] [place] [facility] [address] [id number] [place] [address] Oct, [facility] [place] [facility] [address] [id number] [place] [address] Oct, [facility] [address] [id number] [place] [address] Sep, [facility] [place] [facility] [address] [id number] [place] [address] Sep, [facility] [address] [id number] [place] [address] Sep, [facility] [address] [id number] [place] [address] Sep, [facility] [address] [id number] [place] [address] August, [facility] [address] [id number] [place] [address] August, [facility] [address] [id number] [place] [address] August, [facility] [address] [id number] [place] [address] August, [facility] [address] [id number] [place] [address] August, [facility] [address] [id number] [place] [address] August, [facility] [place] [facility] [address] [id number] [place] [address] Jul, [facility] [place] [facility] [address] [id number] [place] [address] May, [facility] [place] [facility] [address] [id number] [place] [address] Apr, [facility] [place] [facility] [address] [id number] [place] [address] Apr, [facility] [place] [facility] [address] [id number] [place] [address] Apr, [facility] [place] [facility] [address] [id number] [place] [address] Mar, [facility] [place] [facility] [address] [id number] [place] [address]- [address] Mar, [facility] [place] [facility] [address] [id number] [place] [address] Mar, [facility] [place] [facility] [address] [id number] [place] [address] Mar, [facility] [place] [facility] [address] [id number] [place] [address] Jan, [facility] [place] [facility] [address] [id number] [place] [address] Nov, [facility] [place] [facility] [address] [id number] [place] [address] Sep, [facility] [place] [facility] [address] [id number] [place] [address] August, [facility] [place] [facility] [address] [id number] [place] [address] August, [facility] [place] [facility] [address] [id number] [place] [address] Jul, [facility] [place] [facility] [address] [id number] [address] Jul, [facility] [place] [facility] [address] [id number], [place] [address] Jul, [facility] [place] [facility] [address] [id number] [place] [address] Jul, [facility] [place] [facility] [address] [id number], [place] [address] Jul, [facility] [place] [facility] [address] [id number] [place] [address] Jun, [facility] [place] [facility] [address] [id number], [place] [address] Apr, [facility] [id number] [address] Feb, [facility] [id number] [address] Nov, [facility] [id number] [address] Oct, [facility] [id number] [address] Feb, [facility] [id number] [address] August, [facility] [id number] [address] Jul, [facility] [id number] [address] Jun, IMMUNIZATIONS No Known Immunizations SOCIAL HISTORY Never Assessed REASON FOR VISIT Controlled Med Refill 11/01/17 PLAN OF CARE VITAL SIGNS MEDICATIONS Medication [...]
--- OUTSIDE RECORDS SUMMARY | 2017-12-30 00:28 | XMS REPORT ---
Author Author CASEY SIMPSON Organization [facility] Address [address] [place] [address] Care Team Providers Care Production Administrative Assistant Name Role Phone CASEY SIMPSON Unavailable PROBLEMS Type Condition ICD9-CM Code QJC95-XV Code Onset Dates Condition Status SNOMED Code Problem Other emphysema J43.8 Active 70849120 Problem Other iron deficiency anemia D50.8 Active 15682293 Problem Reactive depression F32.9 Active 63321602 Problem Dysthymic disorder F34.1 Active 91275110 Problem Atherosclerotic heart disease of [place] coronary artery without angina pectoris I25.10 Active [id number] Problem Coarse tremors G25.2 Active 05472154 Problem Claustrophobia F40.240 Active 78633639 Problem Chronic prescription benzodiazepine use Z79.899 Active 146086208 Problem Benign familial tremor G25.0 Active 083492464 Problem Mixed hyperlipidemia E78.2 Active 417928158 Problem CAD (coronary artery disease) 414.00 Active 99476864 Problem Supplemental oxygen dependent Z99.81 Active 443546502690 Problem Essential hypertension I10 Active 34298102 Problem Chronic obstructive pulmonary disease with acute exacerbation J44.1 Active 799070680 Problem Memory loss R41.3 Active 13528805 Problem Anxiety F41.9 Active 02142364 Problem Pulmonary emphysema, unspecified emphysema type J43.9 Active 42631955 Problem Nicotine abuse Z72.0 Active 51227157 Problem Irritable bowel syndrome with diarrhea K58.0 Active 169754194 ALLERGIES No Information ENCOUNTERS Encounter Location Date Diagnosis [facility] [address], [place] [address] Jan, [facility] [address], [place] [address] Nov, Atherosclerotic heart disease of [place] coronary artery without angina pectoris I25.10 [facility] [id number] [place] [address] 24475- 0648 Nov, Pulmonary emphysema, unspecified emphysema type J43.9 ; Therapeutic drug monitoring Z51.81 ; Anxiety F41.9 ; Atherosclerotic heart disease of [place] coronary artery without angina pectoris I25.10 ; Dysthymic disorder F34.1 ; Encounter for screening mammogram for breast cancer Z12.31 and Encounter for immunization Z23 [place] [address] [address]- [address] Nov, Anxiety F41.9 [place] [address] 91926- 8978 Oct, [place] [address] 47684- 9899 Oct, [place] [address] 57655- 8785 Oct, Anxiety F41.9 [place] [address] 44388- 7763 Sep, [place] [address] 78937- 1221 Sep, [place] [address] 01570- 8470 Sep, Anxiety F41.9 [place] [id number] [place] [address] 38023- 7914 Sep, Pulmonary emphysema, unspecified emphysema type J43.9 ; Other iron deficiency anemia D50.8 ; Pain of toe of left foot M79.675 and Pain in right toe(s) M79.674 [place] [address] 41882- 4957 05 Sep, 2017 Mouth pain K13.79 [place] [address] 65145- 4360 04 Sep, 2017 Pain, dental K08.89 [place] [address] 93053- 9652 Sep, [facility] [address] 58010- 7368 Sep, Pulmonary emphysema, unspecified emphysema type J43.9 ; Nicotine abuse Z72.0 ; Diarrhea, unspecified type R19.7 ; Mouth pain K13.79 and Vision changes H53.9 [facility] [address] 17654- 7257 Sep, [facility] [address] 70349- 2887 August, Anxiety F41.9 [place] [address] 06102- 2069 Jul, Anxiety F41.9 [place] [address] 83943- 4921 Jun, Pulmonary emphysema, unspecified emphysema type J43.9 and Anxiety F41.9 [place] [address] 28878- 3396 Jun, Anxiety F41.9 [facility] [address] 63524- 5890 Jun, [facility] [id number] [place] [address] 51660- 4869 Jun, [facility] [id number] [place] [address] 54689- 2532 Jun, [facility] [id number] [place] [address] 41673 -6782 Jun, Dysuria R30.0 and Acute cystitis with hematuria N30.01 [facility] [id number] [place] [address] 69370- 9220 May, Anxiety F41.9 and Chronic prescription benzodiazepine use Z79.899 [facility] [address] 40469- 8682 May, Anxiety F41.9 and Chronic prescription benzodiazepine use Z79.899 [facility] [address] 01873- 8483 May, Benign familial tremor G25.0 [facility] [address] 92693- 3632 Apr, Other iron deficiency anemia D50.8 [facility] [address] 69455- 5936 Apr, Anxiety F41.9 [facility] [address] 98004- 6026 Apr, [facility] [address] 83915- 1195 Apr, Pancreatic cyst K86.2 ; Other iron deficiency anemia D50.8 ; Pulmonary emphysema, unspecified emphysema type J43.9 ; Coarse tremors G25.2 and Claustrophobia F40.240 [facility] [address] 34556- 5200 Apr, Anxiety F41.9 [place] [address] 49428- 8396 Mar, [facility] [address] 22160- 3945 Mar, Anxiety F41.9 [facility] [address] 29937- 9011 Feb, Anxiety F41.9 [facility] [id number] [place] [address] 55131- 1371 Jan, [facility] [address] 19980- 6132 Jan, [facility] [address] 88387- 1329 Jan, Anxiety F41.9 [facility] [id number] [place] [address] 02313- 9991 Jan, Pulmonary emphysema, unspecified emphysema type J43.9 ; Encounter for immunization Z23 ; Other iron deficiency anemia D50.8 ; Anxiety F41.9 ; Diarrhea, unspecified type R19.7 and Memory loss R41.3 [place] [address] 42967- 2472 Dec, Anxiety F41.9 [place] [address] 81112- 5939 07 Dec, 2016 Irritable bowel syndrome with diarrhea K58.0 [place] [address] 985709- 9448 05 Dec, 2016 Diarrhea, unspecified type R19.7 [place] [address] 05962- 0719 Nov, Acute non-recurrent maxillary sinusitis J01.00 ; Pulmonary emphysema, unspecified emphysema type J43.9 ; Diarrhea, unspecified type R19.7 and Other iron deficiency anemia D50.8 [place] [address] 51216- 3791 Nov, [facility] [id number] [place] [address] 96567 -7136 Nov, Sore throat J02.9 and Strep pharyngitis J02.0 [place] [id number] [place] [address] 10683- 0097 Nov, Other iron deficiency anemia D50.8 [place] [id number] [place] [address] 48307- 3341 Nov, Anxiety F41.9 and Low hemoglobin D64.9 [place] [id number] [place] [address] 17573- 7595 Oct, Anxiety F41.9 [place] [address] 34988- 4355 Sep, Anxiety F41.9 [place] [address] [place] [address] 50611- 1621 13 Sep, 2016 Left upper quadrant pain R10.12 [place] [address] [id number] [place] [address] 59067- 1638 07 Sep, 2016 Other iron deficiency anemia D50.8 and Left upper quadrant pain R10.12 [place] [id number] [place] [address] 25806- 2278 17 Aug, 2016 Anxiety F41.9 [place] [id number] [place] [address] 93088- 4998 10 Aug, 2016 Other iron deficiency anemia D50.8 and Left upper quadrant pain R10.12 [place] [id number] [place] [address] 27043- 3762 19 Jul, 2016 Other iron deficiency anemia D50.8 ; Acute gastric ulcer with hemorrhage K25.0 and Anxiety F41.9 [place] [id number] [place] [address] 96310- 4465 18 Jul, 2016 Other iron deficiency anemia D50.8 ; Other fatigue R53.83 ; Nicotine abuse Z72.0 ; Anxiety F41.9 and Pulmonary emphysema, unspecified emphysema type J43.9 [place] [id number] [place] [address] 77365- 3163 31 Jun, 2016 Other iron deficiency anemia D50.8 and Hematochezia K92.1 [place] [id number] [place] [address] 81936- 2786 Jun, Other fatigue R53.83 and Other iron deficiency anemia D50.8 [place] [id number] [place] [address] 64159- 2800 Jun, Other fatigue R53.83 [place] [id number] [place] [address] 11793- 6007 Jun, Other iron deficiency anemia D50.8 ; Nicotine abuse Z72.0 ; Anxiety F41.9 and Pulmonary emphysema, unspecified emphysema type J43.9 [place] [id number] [place] [address] 00906- 5267 17 Jun, 2016 Low hemoglobin D64.9 [place] [address] 64110- 1161 16 Jun, 2016 Low hemoglobin D64.9 [place] [address] 70231- 3533 14 Jun, 2016 Anxiety F41.9 ; Nicotine abuse Z72.0 and Reactive depression F32.9 [place] [address] 37435- 6485 Jun, Anxiety F41.9 [place] [address] 69637- 8409 May, Anxiety F41.9 ; Nicotine abuse Z72.0 and Reactive depression F32.9 [place] [address] 72974- 8914 May, Anxiety F41.9 [place] [id number] [place] [address] 31131- 2481 May, Anxiety F41.9 ; Nicotine abuse Z72.0 and Reactive depression F32.9 [place] [address] 98432- 0000 May, [place] [address] [id number] [place] [address] 15491- 7037 May, [place] [id number] [place] [address] 37673- 9173 May, Anxiety F41.9 [place] [address] [id number] [place] [address] 3700 May, Other emphysema J43.8 ; Cramping of hands R25.2 ; Irritable bowel syndrome with diarrhea K58.0 ; Breast cancer screening Z12.39 ; Candidal stomatitis B37.0 and Candidal esophagitis B37.81 [facility] [id number] [place] [address] 82457- 6778 10 Apr, 2016 Anxiety F41.9 [facility] [id number] [place] [address] 71859- 3132 Mar, Anxiety F41.9 [facility] [id number] [place] [address] 82845- 2220 Feb, Anxiety F41.9 [facility] [id number] [place] [address] 06735- 8364 Jan, Anxiety F41.9 [facility] [address] 61764- 8801 Jan, Anxiety F41.9 [facility] [address] 59470- 5408 Jan, Anxiety F41.9 [facility] [address] 89113- 5305 Jan, Anxiety F41.9 ; Nicotine abuse Z72.0 ; Pulmonary emphysema, unspecified emphysema type J43.9 ; Memory loss R41.3 and Abdominal pain, unspecified location R10.9 [facility] [id number] [place] [address] 57350- 8020 Jan, [facility] [id number] [place] [address] 65412- 2353 Dec, Anxiety F41.9 [facility] [id number] [place] [address] 63789 -2844 Dec, Right arm pain M79.601 [facility] [id number] [place] [address] 94074- 5032 Nov, Anxiety F41.9 [facility] [id number] [place] [address] 77143- 7731 Oct, Anxiety F41.9 [facility] [address] [place] [address]- 1787 Oct, [facility] [id number] [place] [address] 42358- 8057 Sep, Anxiety F41.9 [facility] [id number] [place] [address] 23504- 8564 Sep, Left lower quadrant pain R10.32 ; Memory loss R41.3 and Basal cell carcinoma of skin, unspecified C44.91 [facility] [id number] [place] [address] 69837- 9728 Sep, Anxiety F41.9 [facility] [id number] [place] [address] 32557- 7381 August, Anxiety F41.9 [facility] [id number] [place] [address] 74480- 1096 August, Left lower quadrant pain R10.32 ; Memory loss R41.3 ; Pulmonary emphysema, unspecified emphysema type J43.9 and Depression, unspecified depression type F32.9 [facility] [address] [place] [address] 54142- 1037 August, [facility] [id number] [place] [address] 78152- 3274 Jul, [facility] [id number] [place] [address] 46663- 5088 Jun, [facility] [id number] [place] [address] 46595- 3659 May, [facility] [id number] [place] [address] 26694- 2774 Apr, [facility] [id number] [place] [address] 91103- 8273 Apr, Chronic obstructive pulmonary disease with acute exacerbation J44.1 ; Anxiety F41.9 and Nicotine abuse Z72.0 [facility] [id number] [place] [address] 08559- 9833 Apr, [facility] [address], [place] [address]- 5323 Mar, Anxiety disorder, unspecified F41.9 [facility] [id number] [place] [address] 30386- 5711 Mar, [facility] [id number] [place] [address] 987322- 9546 Feb, [facility] [id number] [place] [address] 753644- 0590 Nov, [facility] [id number] [place] [address] 162349- 9513 Nov, [facility] [id number] [place] [address] 52727- 9094 Nov, Basal cell carcinoma 173.91 and Astigmatism with presbyopia 367.20 [facility] [id number] [place] [address] 44220- 2776 Oct, [facility] [id number] [place] [address] 14982- 8232 Oct, Lipoma 214.9 [facility] [id number] [place] [address] 47970- 8205 Sep, Ganglion cyst 727.43 ; Chronic airway obstruction, not elsewhere classified 496 ; Hypertension 401.9 ; CAD (coronary artery disease) 414.00 and Dysthymia 300.4 [facility] [id number] [address]- 5487 Jul, [facility] [id number] [place] [address] 312784- 0994 Jul, [facility] [id number] [place] [address] 172052- 6220 Jun, [facility] [address], [place] [address]- 1471 Jun, [facility] [address] [place] [address]- 9443 Jun, [facility] [place] [facility] [address] [id number] [place] [address]- 9219 Jun, [facility] [place] [facility] [address] [id number] [place] [address]- 8618 12 May, 2014 [facility] [place] [facility] [address] [id number] [place] [address]- 8524 May, [facility] [place] [facility] [address] [id number] [place] [address]- 8388 Mar, [facility] [place] [facility] [address] [id number] [place] [address]- 8777 Mar, [facility] [place] [facility] [address] [id number] [place] [address]- 2394 Mar, [facility] [place] [facility] [address] [id number] [place] [address]- 4984 Mar, [facility] [place] [facility] [address] [id number] [place] [address]- 3021 Feb, [facility] [place] [facility] [address] [id number] [place] [address]- 1876 Feb, [facility] [place] [facility] [address] [id number] [place] [address]- 2065 Feb, [facility] [place] [facility] [address] [id number] [place] [address]- 2398 Feb, [facility] [place] [facility] [address] [id number] [place] [address]- 6104 Feb, [facility] [place] [facility] [address] [id number] [place] [address]- 3928 Feb, [facility] [place] [facility] [address] [id number] [place] [address]- 0292 Feb, [facility] [place] [facility] [address] [id number] [place] [address]- 9005 Feb, [facility] [place] [facility] [address] [id number] [place] [address]- 1614 Feb, [facility] [place] [facility] [address] [id number] [place] [address]- 5224 Feb, [facility] [place] [facility] [address] [id number] [place] [address]- 4240 Dec, [facility] [place] [facility] [address] [id number] [place] [address]- 4217 Dec, [facility] [place] [facility] [address] [id number] [place] [address]- 9397 Nov, [facility] [place] [facility] [address] [id number] [place] [address]- 8974 Oct, [facility] [place] [facility] [address] [id number] [place] [address]- 3327 Oct, [facility] [place] [facility] [address] [id number] [place] [address]- 0223 August, [facility] [place] [facility] [address] [id number] [place] [address]- 9253 August, [facility] [place] [facility] [address] [id number] [place] [address]- 3484 August, [facility] [place] [facility] [address] [id number] [place] [address]- 5674 August, [facility] [place] [facility] [address] [id number] [place] [address]- 1051 Jul, [facility] [place] [facility] [address] [id number] [place] [address]- 7093 Jul, [facility] [place] [facility] [address] [id number] [place] [address]- 4384 Jun, [facility] [place] [facility] [address] [id number] [place] 3202 Jun, [facility] [place] [facility] [address] [id number] [place] [address]- 6764 25 Jun, 2013 [facility] [place] [facility] [address] [id number] [place] [address]- 0836 18 Jun, 2013 [facility] [place] [facility] [address] [id number] [place] [address]- 1893 18 Jun, 2013 [facility] [place] [facility] [address] [id number] [place] [address]- 0367 Jun, [facility] [place] [facility] [address] [id number] [place] [address]- 4838 Jun, [facility] [place] [facility] [address] [id number] [place] [address]- 0206 Jun, [facility] [place] [facility] [address] [id number] [place] [address]- 9504 Jun, [facility] [place] [facility] [address] [id number] [place] [address]- 0424 10 Jun, 2013 [facility] [place] [facility] [address] [id number] [place] [address]- 4586 Jun, [facility] [place] [facility] [address] [id number] [place] [address]- 9472 Jun, [facility] [place] [facility] [address] [id number] [place] [address]- 1881 Jun, [facility] [place] [facility] [address] [id number] [place] [address]- 9639 Jun, [facility] [place] [facility] [address] [id number] [place] [address]- 7514 Jun, [facility] [place] [facility] [address] [id number] [place] [address]- 4508 Jun, [facility] [place] [facility] [address] [id number] [place] [address]- 7338 Jun, [facility] [place] [facility] [address] [id number] [place] [address]- 8517 Jun, [facility] [place] [facility] [address] [id number] [place] [address] Jun, [facility] [place] [facility] [address] [id number] [place] [address]- 9976 May, [facility] [place] [facility] [address] [id number] [place] 6170 May, [facility] [place] [facility] [address] [id number] [place] [address]- 9212 May, [facility] [place] [facility] [address] [id number] [place] [address]- 3548 May, [facility] [place] [facility] [address] [id number] [place] [address]- 6061 Apr, [facility] [place] [facility] [address] [id number] [place] [address]- 0584 Apr, [facility] [place] [facility] [address] [id number] [place] [address]- 0356 Mar, [facility] [place] [facility] [address] [id number] [place] [address]- 0642 Mar, [facility] [place] [facility] [address] [id number] [place] [address]- 2373 Mar, [facility] [place] [facility] [address] [id number] [place] [address]- 6025 Mar, [facility] [place] [facility] [address] [id number] [place] [address]- 1904 Mar, [facility] [place] [facility] [address] [id number] [place] [address]- 1392 Mar, [facility] [place] [facility] [address] [id number] [place] 5955 Mar, [facility] [place] [facility] [address] [id number] [place] [address]- 0371 Mar, [facility] [place] [facility] [address] [id number] [place] [address]- 0544 Mar, [facility] [place] [facility] [address] [id number] [place] [address] Mar, [facility] [place] [facility] [address] [id number] [place] [address] Mar, [facility] [place] [facility] [address] [id number] [place] [address] Feb, [facility] [place] [facility] [address] [id number] [place] [address] Feb, [facility] [place] [facility] [address] [id number] [place] [address] Jan, [facility] [place] [facility] [address] [id number] [place] [address] Jan, [facility] [place] [facility] [address] [id number] [place] [address] Jan, [facility] [place] [facility] [address] [id number] [place] [address] Nov, [facility] [place] [facility] [address] [id number] [place] [address] Oct, [facility] [place] [facility] [address] [id number] [place] [address] Oct, [facility] [place] [facility] [address] [id number] [place] [address] Oct, [facility] [place] [facility] [address] [id number] [place] [address] 16 Oct, 2012 [facility] [place] [facility] [address] [id number] [place] [address] Oct, [facility] [place] [facility] [address] [id number] [place] [address] Oct, [facility] [place] [facility] [address] [id number] [place] [address] Oct, [facility] [place] [facility] [address] [id number] [place] [address] Oct, [facility] [address] [id number] [place] [address] Sep, [facility] [address] [id number] [place] [address] Sep, [facility] [address] [id number] [place] [address] Sep, [facility] [address] [id number] [place] [address] Sep, [facility] [address] [id number] [place] [address] August, [facility] [address] [id number] [place] [address] August, [facility] [address] [id number] [place] [address] August, [facility] [address] [id number] [place] [address] August, [facility] [address] [id number] [place] [address] August, [facility] [address] [id number] [place] [address] August, [facility] [address] [id number] [place] [address] Jul, [facility] [address] [id number] [place] [address] May, [facility] [address] [id number] [place] [address] Apr, [facility] [address] [id number] [place] [address]- [address] Apr, [facility] [address] [id number] [place] [address] Apr, [facility] [address] [id number] [place] [address] Mar, [facility] [place] [facility] [address] [id number] [place] [address] Mar, [facility] [place] [facility] [address] [id number] [place] [address] Mar, [facility] [place] [facility] [address] [id number] [place] [address]- [address] Mar, [facility] [place] [facility] [address] [id number] [place] [address] Jan, [facility] [place] [facility] [address] [id number] [place] [address] Nov, [facility] [facility] [address] [address] [id number] [place] [address] Sep, [facility] [place] [facility] [address] [id number] [place] [address] August, [facility] [place] [facility] [address] [id number] [place] [address] August, [facility] [place] [facility] [address] [id number] [place] [address] Jul, [facility] [place] [facility] [address] [id number], [place] [address] Jul, [facility] [place] [facility] [address] [id number], [place] [address] Jul, [facility] [place] [facility] [address] [id number] [place] [address] Jul, [facility] [place] [facility] [address] [id number], [place] [address] Jul, [facility] [place] [facility] [address] [id number] [place] [address] Jun, [facility] [place] [facility] [address] [id number], [place] [address] Apr, [facility] [address] [id number], [place] [address] Feb, [facility] [id number], [place] [address] Nov, [facility] [id number], [place] [address] Oct, [facility] [id number], [place] [address] Feb, [facility] [id number], [place] [address] August, [facility] [id number], [place] [address] Jul, [facility] [id number], [place] [address] Jun, IMMUNIZATIONS No Known Immunizations SOCIAL HISTORY Never Assessed REASON FOR VISIT Referral PLAN OF CARE VITAL SIGNS MEDICATIONS Unknown [...]
--- OUTSIDE RECORDS SUMMARY | 2017-12-30 00:29 | XMS REPORT ---
Author Author CASEY SIMPSON Organization [facility] Address [address] [place] [address] Care Team Providers Care Research Computing Specialist Name Role Phone CASEY SIMPSON Unavailable PROBLEMS Type Condition ICD9-CM Code [id number] Code Onset Dates Condition Status SNOMED Code Problem Other emphysema J43.8 Active 73297818 Problem Other iron deficiency anemia D50.8 Active 35068001 Problem Reactive depression F32.9 Active 42116165 Problem Dysthymic disorder F34.1 Active 71734398 Problem Atherosclerotic heart disease of [place] coronary artery without angina pectoris I25.10 Active [id number] Problem Coarse tremors G25.2 Active 05593077 Problem Claustrophobia F40.240 Active 01005900 Problem Chronic prescription benzodiazepine use Z79.899 Active 409609570 Problem Benign familial tremor G25.0 Active 456806722 Problem Mixed hyperlipidemia E78.2 Active 291928404 Problem CAD (coronary artery disease) 414.00 Active 63270095 Problem Supplemental oxygen dependent Z99.81 Active 697849131936 Problem Essential hypertension I10 Active 31959644 Problem Chronic obstructive pulmonary disease with acute exacerbation J44.1 Active 595946304 Problem Memory loss R41.3 Active 86216475 Problem Anxiety F41.9 Active 38192129 Problem Pulmonary emphysema, unspecified emphysema type J43.9 Active 56737149 Problem Nicotine abuse Z72.0 Active 83929335 Problem Irritable bowel syndrome with diarrhea K58.0 Active 006474258 ALLERGIES No Information ENCOUNTERS Encounter Location Date Diagnosis [facility] [id number] [address] Jan, [facility] [address] [address] Nov, Atherosclerotic heart disease of [place] coronary artery without angina pectoris I25.10 [facility] [id number] [place] [address] 79606- 1274 Nov, Pulmonary emphysema, unspecified emphysema type J43.9 ; Therapeutic drug monitoring Z51.81 ; Anxiety F41.9 ; Atherosclerotic heart disease of [place] coronary artery without angina pectoris I25.10 ; Dysthymic disorder F34.1 ; Encounter for screening mammogram for breast cancer Z12.31 and Encounter for immunization Z23 [place] [address] [address]- 4432 Nov, Anxiety F41.9 [place] [address] 50384- 7398 Oct, [place] [address] 14258- 0661 Oct, [place] [address] 5[address]13- 7727 Oct, Anxiety F41.9 [place] [address] 02036- 4520 Sep, [place] [address] 16980- 5993 Sep, [place] [address] 82675- 5729 Sep, Anxiety F41.9 [place] [id number] [place] [address] 90932- 5934 Sep, Pulmonary emphysema, unspecified emphysema type J43.9 ; Other iron deficiency anemia D50.8 ; Pain of toe of left foot M79.675 and Pain in right toe(s) M79.674 [place] [address] 07794- 6698 05 Sep, 2017 Mouth pain K13.79 [place] [address] 44952- 8948 04 Sep, 2017 Pain, dental K08.89 [place] [address] 85816- 4373 Sep, [facility] [address] 42990- 4785 Sep, Pulmonary emphysema, unspecified emphysema type J43.9 ; Nicotine abuse Z72.0 ; Diarrhea, unspecified type R19.7 ; Mouth pain K13.79 and Vision changes H53.9 [facility] [address] 42866- 5791 Sep, [facility] [address] 31813- 0089 August, Anxiety F41.9 [place] [address] 02888- 4038 Jul, Anxiety F41.9 [place] [address] 62473- 5674 Jun, Pulmonary emphysema, unspecified emphysema type J43.9 and Anxiety F41.9 [place] [address] 06242- 6000 Jun, Anxiety F41.9 [facility] [address] 78284- 5065 Jun, [facility] [id number] [place] [address] 55464- 2611 Jun, [facility] [id number] [place] [address] 92600- 9779 Jun, [facility] [id number] [place] [address] 28519 -6288 Jun, Dysuria R30.0 and Acute cystitis with hematuria N30.01 [facility] [id number] [place] [address] 55205- 6267 May, Anxiety F41.9 and Chronic prescription benzodiazepine use Z79.899 [facility] [address] 06188- 1688 May, Anxiety F41.9 and Chronic prescription benzodiazepine use Z79.899 [facility] [address] 52112- 3049 May, Benign familial tremor G25.0 [facility] [address] 38442- 6464 Apr, Other iron deficiency anemia D50.8 [facility] [address] 53249- 1785 Apr, Anxiety F41.9 [facility] [address] 21648- 9967 Apr, [facility] [address] 18241- 6694 Apr, Pancreatic cyst K86.2 ; Other iron deficiency anemia D50.8 ; Pulmonary emphysema, unspecified emphysema type J43.9 ; Coarse tremors G25.2 and Claustrophobia F40.240 [facility] [address] 29403- 8420 Apr, Anxiety F41.9 [place] [address] 62583- 9508 Mar, [facility] [address] 82520- 0521 Mar, Anxiety F41.9 [facility] [address] 63198- 6989 Feb, Anxiety F41.9 [facility] [id number] [place] [address] 55121- 6658 Jan, [facility] [address] 13638- 0101 Jan, [facility] [address] 95356- 2285 Jan, Anxiety F41.9 [facility] [id number] [place] [address] 58685- 3440 Jan, Pulmonary emphysema, unspecified emphysema type J43.9 ; Encounter for immunization Z23 ; Other iron deficiency anemia D50.8 ; Anxiety F41.9 ; Diarrhea, unspecified type R19.7 and Memory loss R41.3 [place] [address] 65869- 3124 Dec, Anxiety F41.9 [place] [address] 45607- 3347 07 Dec, 2016 Irritable bowel syndrome with diarrhea K58.0 [place] [address] 110558- 1966 05 Dec, 2016 Diarrhea, unspecified type R19.7 [place] [address] 12921- 6549 Nov, Acute non-recurrent maxillary sinusitis J01.00 ; Pulmonary emphysema, unspecified emphysema type J43.9 ; Diarrhea, unspecified type R19.7 and Other iron deficiency anemia D50.8 [place] [address] 86330- 9172 Nov, [facility] [id number] [place] [address] 13965 -6200 Nov, Sore throat J02.9 and Strep pharyngitis J02.0 [place] [id number] [place] [address] 48538- 7166 Nov, Other iron deficiency anemia D50.8 [place] [id number] [place] [address] 46796- 2553 Nov, Anxiety F41.9 and Low hemoglobin D64.9 [place] [id number] [place] [address] 35961- 8226 Oct, Anxiety F41.9 [place] [address] 47088- 3755 Sep, Anxiety F41.9 [place] [id number] [place] [address] 68463- 0078 13 Sep, 2016 Left upper quadrant pain R10.12 [place] [id number] [place] [address] 19785- 9021 07 Sep, 2016 Other iron deficiency anemia D50.8 and Left upper quadrant pain R10.12 [place] [id number] [place] [address] 93527- 0398 17 Aug, 2016 Anxiety F41.9 [place] [id number] [place] [address] 79952- 7256 10 Aug, 2016 Other iron deficiency anemia D50.8 and Left upper quadrant pain R10.12 [place] [id number] [place] [address] 48585- 5239 19 Jul, 2016 Other iron deficiency anemia D50.8 ; Acute gastric ulcer with hemorrhage K25.0 and Anxiety F41.9 [place] [id number] [place] [address] 09413- 2120 18 Jul, 2016 Other iron deficiency anemia D50.8 ; Other fatigue R53.83 ; Nicotine abuse Z72.0 ; Anxiety F41.9 and Pulmonary emphysema, unspecified emphysema type J43.9 [place] [id number] [place] [address] 35233- 7293 31 Jun, 2016 Other iron deficiency anemia D50.8 and Hematochezia K92.1 [place] [id number] [place] [address] 60947- 0952 Jun, Other fatigue R53.83 and Other iron deficiency anemia D50.8 [place] [id number] [place] [address] 56691- 4684 Jun, Other fatigue R53.83 [place] [id number] [place] [address] 66215- 1294 Jun, Other iron deficiency anemia D50.8 ; Nicotine abuse Z72.0 ; Anxiety F41.9 and Pulmonary emphysema, unspecified emphysema type J43.9 [place] [id number] [place] [address] 73760- 9652 17 Jun, 2016 Low hemoglobin D64.9 [place] [address] 59245- 7140 16 Jun, 2016 Low hemoglobin D64.9 [place] [address] 20925- 1945 14 Jun, 2016 Anxiety F41.9 ; Nicotine abuse Z72.0 and Reactive depression F32.9 [place] [address] 27205- 1055 Jun, Anxiety F41.9 [place] [address] 46948- 3292 May, Anxiety F41.9 ; Nicotine abuse Z72.0 and Reactive depression F32.9 [place] [address] 47253- 8249 May, Anxiety F41.9 [place] [id number] [place] [address] 56099- 6186 May, Anxiety F41.9 ; Nicotine abuse Z72.0 and Reactive depression F32.9 [place] [address] 12283- 3173 May, [place] [address] [id number] [place] [address] 19230- 9267 May, [place] [id number] [place] [address] 71366- 0868 May, Anxiety F41.9 [place] [address] [id number] [place] [address] 6264 May, Other emphysema J43.8 ; Cramping of hands R25.2 ; Irritable bowel syndrome with diarrhea K58.0 ; Breast cancer screening Z12.39 ; Candidal stomatitis B37.0 and Candidal esophagitis B37.81 [facility] [id number] [place] [address] 31480- 5619 10 Apr, 2016 Anxiety F41.9 [facility] [id number] [place] [address] 35689- 8663 Mar, Anxiety F41.9 [facility] [id number] [place] [address] 04300- 5393 Feb, Anxiety F41.9 [facility] [id number] [place] [address] 04786- 7893 Jan, Anxiety F41.9 [facility] [address] 87088- 7440 Jan, Anxiety F41.9 [facility] [address] 34614- 5232 Jan, Anxiety F41.9 [facility] [address] 34633- 0719 Jan, Anxiety F41.9 ; Nicotine abuse Z72.0 ; Pulmonary emphysema, unspecified emphysema type J43.9 ; Memory loss R41.3 and Abdominal pain, unspecified location R10.9 [facility] [id number] [place] [address] 70126- 6274 Jan, [facility] [id number] [place] [address] 90038- 2778 Dec, Anxiety F41.9 [facility] [id number] [place] [address] 88638 -6898 Dec, Right arm pain M79.601 [facility] [id number] [place] [address] 81823- 0738 Nov, Anxiety F41.9 [facility] [id number] [place] [address] 31237- 1756 Oct, Anxiety F41.9 [facility] [address] [place] [address]- 2460 Oct, [facility] [id number] [place] [address] 06051- 0593 Sep, Anxiety F41.9 [facility] [id number] [place] [address] 34967- 6241 Sep, Left lower quadrant pain R10.32 ; Memory loss R41.3 and Basal cell carcinoma of skin, unspecified C44.91 [facility] [id number] [place] [address] 74781- 6827 Sep, Anxiety F41.9 [facility] [id number] [place] [address] 77879- 1119 August, Anxiety F41.9 [facility] [id number] [place] [address] 95544- 3611 August, Left lower quadrant pain R10.32 ; Memory loss R41.3 ; Pulmonary emphysema, unspecified emphysema type J43.9 and Depression, unspecified depression type F32.9 [facility] [address] [place] [address] 39380- 5200 August, [facility] [id number] [place] [address] 94934- 1743 Jul, [facility] [id number] [place] [address] 68138- 3142 Jun, [facility] [id number] [place] [address] 85501- 9335 May, [facility] [id number] [place] [address] 78980- 1302 Apr, [facility] [id number] [place] [address] 01531- 5797 Apr, Chronic obstructive pulmonary disease with acute exacerbation J44.1 ; Anxiety F41.9 and Nicotine abuse Z72.0 [facility] [id number] [place] [address] 71315- 5942 Apr, [facility] [address] [address]- 7793 Mar, Anxiety disorder, unspecified F41.9 [facility] [id number] [place] [address] 45248- 5665 Mar, [facility] [id number] [place] [address] 059630- 5806 Feb, [facility] [id number] [place] [address] 537950- 7650 Nov, [facility] [id number] [place] [address] 486897- 4384 Nov, [facility] [id number] [place] [address] 25634- 9609 Nov, Basal cell carcinoma 173.91 and Astigmatism with presbyopia 367.20 [facility] [id number] [place] [address] 43549- 9723 Oct, [facility] [id number] [place] [address] 45136- 9354 Oct, Lipoma 214.9 [facility] [id number] [place] [address] 00382- 4490 Sep, Ganglion cyst 727.43 ; Chronic airway obstruction, not elsewhere classified 496 ; Hypertension 401.9 ; CAD (coronary artery disease) 414.00 and Dysthymia 300.4 [facility] [id number] [address]- 8297 Jul, [facility] [id number] [place] [address] 047444- 7072 Jul, [facility] [id number] [place] [address] 499189- 8431 Jun, [facility] [address] [address]- 7896 Jun, [facility] [address] [address]- 0452 Jun, [facility] [place] [facility] [address] [id number] [place] [address]- 6623 Jun, [facility] [place] [facility] [address] [id number] [place] [address]- 1823 12 May, 2014 [facility] [place] [facility] [address] [id number] [place] [address]- 0573 May, [facility] [place] [facility] [address] [id number] [place] [address]- 4100 Mar, [facility] [place] [facility] [address] [id number] [place] [address]- 8893 Mar, [facility] [place] [facility] [address] [id number] [place] [address]- 7683 Mar, [facility] [place] [facility] [address] [id number] [place] [address]- 3145 Mar, [facility] [place] [facility] [address] [id number] [place] [address]- 1979 Feb, [facility] [place] [facility] [address] [id number] [place] [address]- 1559 Feb, [facility] [place] [facility] [address] [id number] [place] [address]- 1960 Feb, [facility] [place] [facility] [address] [id number] [place] [address]- 7223 Feb, [facility] [place] [facility] [address] [id number] [place] [address]- 3945 Feb, [facility] [place] [facility] [address] [id number] [place] [address]- 0935 Feb, [facility] [place] [facility] [address] [id number] [place] [address]- 4090 Feb, [facility] [place] [facility] [address] [id number] [place] [address]- 3248 Feb, [facility] [place] [facility] [address] [id number] [place] [address]- 1846 Feb, [facility] [place] [facility] [address] [id number] [place] [address]- 5465 Feb, [facility] [place] [facility] [address] [id number] [place] [address]- 9766 Dec, [facility] [place] [facility] [address] [id number] [place] [address]- 4534 Dec, [facility] [place] [facility] [address] [id number] [place] [address]- 1027 Nov, [facility] [place] [facility] [address] [id number] [place] [address]- 1835 Oct, [facility] [place] [facility] [address] [id number] [place] [address]- 1409 Oct, [facility] [place] [facility] [address] [id number] [place] [address]- 6252 August, [facility] [place] [facility] [address] [id number] [place] [address]- 4936 August, [facility] [place] [facility] [address] [id number] [place] [address]- 5529 August, [facility] [place] [facility] [address] [id number] [place] [address]- 7763 August, [facility] [place] [facility] [address] [id number] [place] [address]- 2227 Jul, [facility] [place] [facility] [address] [id number] [place] [address]- 9432 Jul, [facility] [place] [facility] [address] [id number] [place] [address]- 5859 Jun, [facility] [place] [facility] [address] [id number] [place] 7591 Jun, [facility] [place] [facility] [address] [id number] [place] [address]- 4458 25 Jun, 2013 [facility] [place] [facility] [address] [id number] [place] [address]- 3867 18 Jun, 2013 [facility] [place] [facility] [address] [id number] [place] [address]- 8000 18 Jun, 2013 [facility] [place] [facility] [address] [id number] [place] [address]- 1533 Jun, [facility] [place] [facility] [address] [id number] [place] [address]- 8451 Jun, [facility] [place] [facility] [address] [id number] [place] [address]- 4001 Jun, [facility] [place] [facility] [address] [id number] [place] [address]- 2123 Jun, [facility] [place] [facility] [address] [id number] [place] [address]- 0832 10 Jun, 2013 [facility] [place] [facility] [address] [id number] [place] [address]- 9591 Jun, [facility] [place] [facility] [address] [id number] [place] [address]- 8968 Jun, [facility] [place] [facility] [address] [id number] [place] [address]- 5964 Jun, [facility] [place] [facility] [address] [id number] [place] [address]- 7292 Jun, [facility] [place] [facility] [address] [id number] [place] [address]- 6257 Jun, [facility] [place] [facility] [address] [id number] [place] [address]- 5077 Jun, [facility] [place] [facility] [address] [id number] [place] [address]- 6075 Jun, [facility] [place] [facility] [address] [id number] [place] [address]- 9264 Jun, [facility] [place] [facility] [address] [id number] [place] [address]- 5201 Jun, [facility] [place] [facility] [address] [id number] [place] [address]- 7887 May, [facility] [place] [facility] [address] [id number] [place] 8065 May, [facility] [place] [facility] [address] [id number] [place] [address]- 1338 May, [facility] [place] [facility] [address] [id number] [place] [address]- 2964 May, [facility] [place] [facility] [address] [id number] [place] [address]- 2815 Apr, [facility] [place] [facility] [address] [id number] [place] [address]- 8810 Apr, [facility] [place] [facility] [address] [id number] [place] [address]- 3185 Mar, [facility] [place] [facility] [address] [id number] [place] [address] Mar, [facility] [place] [facility] [address] [id number] [place] [address] Mar, [facility] [place] [facility] [address] [id number] [place] [address] Mar, [facility] [place] [facility] [address] [id number] [place] [address] Mar, [facility] [place] [facility] [address] [id number] [place] [address] Mar, [facility] [place] [facility] [address] [id number] [place] Mar, [facility] [place] [facility] [address] [id number] [place] [address] Mar, [facility] [place] [facility] [address] [id number] [place] [address] Mar, [facility] [place] [facility] [address] [id number] [place] [address] Mar, [facility] [place] [facility] [address] [id number] [place] [address] Mar, [facility] [place] [facility] [address] [id number] [place] [address] Feb, [facility] [place] [facility] [address] [id number] [place] [address] Feb, [facility] [place] [facility] [address] [id number] [place] [address] Jan, [facility] [place] [facility] [address] [id number] [place] [address] Jan, [facility] [place] [facility] [address] [id number] [place] [address] Jan, [facility] [place] [facility] [address] [id number] [place] [address] Nov, [facility] [place] [facility] [address] [id number] [place] [address] Oct, [facility] [place] [facility] [address] [id number] [place] [address] Oct, [facility] [place] [facility] [address] [id number] [place] [address] Oct, [facility] [place] [facility] [address] [id number] [place] [address] 16 Oct, 2012 [facility] [place] [facility] [address] [id number] [place] [address] Oct, [facility] [place] [facility] [address] [id number] [place] [address] Oct, [facility] [place] [facility] [address] [id number] [place] [address] Oct, [facility] [place] [facility] [address] [id number] [place] [address] Oct, [facility] [address] [id number] [place] [address] Sep, [facility] [place] [facility] [address] [id number] [place] [address] Sep, [facility] [address] [id number] [place] [address] Sep, [facility] [address] [id number] [place] [address] Sep, [facility] [address] [id number] [place] [address] August, [facility] [address] [id number] [place] [address] August, [facility] [address] [id number] [place] [address] August, [facility] [address] [id number] [place] [address] August, [facility] [address] [id number] [place] [address] August, [facility] [address] [id number] [place] [address] August, [facility] [place] [facility] [address] [id number] [place] [address] Jul, [facility] [place] [facility] [address] [id number] [place] [address] May, [facility] [place] [facility] [address] [id number] [place] [address] Apr, [facility] [place] [facility] [address] [id number] [place] [address] Apr, [facility] [place] [facility] [address] [id number] [place] [address] Apr, [facility] [place] [facility] [address] [id number] [place] [address] Mar, [facility] [place] [facility] [address] [id number] [place] [address] Mar, [facility] [place] [facility] [address] [id number] [place] [address] Mar, [facility] [place] [facility] [address] [id number] [place] [address] Mar, [facility] [place] [facility] [address] [id number] [place] [address] Jan, [facility] [place] [facility] [address] [id number] [place] [address] Nov, [facility] [place] [facility] [address] [id number] [place] [address] Sep, [facility] [place] [facility] [address] [id number] [place] [address] August, [facility] [place] [facility] [address] [id number] [place] [address] August, [facility] [place] [facility] [address] [id number] [place] [address] Jul, [facility] [place] [facility] [address] [id number] [address] Jul, [facility] [place] [facility] [address] [id number] [address] Jul, [facility] [place] [facility] [address] [id number] [place] [address] Jul, [facility] [place] [facility] [address] [id number] [address] Jul, [facility] [place] [facility] [address] [id number] [place] [address] Jun, [facility] [place] [facility] [address] [id number] [address] Apr, [facility] [address] [id number] [address] Feb, [facility] [id number] [address] Nov, [facility] [id number] [address] Oct, [facility] [id number] [address] Feb, [facility] [id number] [address] August, [facility] [id number] [address] Jul, [facility] [id number] [address] Jun, IMMUNIZATIONS No Known Immunizations SOCIAL HISTORY Never Assessed REASON FOR VISIT eye exam PLAN OF CARE VITAL SIGNS MEDICATIONS Unknown [...]
--- OUTSIDE RECORDS SUMMARY | 2017-12-30 00:30 | XMS REPORT ---
Author Author CASEY SIMPSON Organization [facility] Address [address] [place] [address] Care Team Providers Care Valet Name Role Phone CASEY SIMPSON Unavailable PROBLEMS Type Condition ICD9-CM Code RNS52-JG Code Onset Dates Condition Status SNOMED Code Problem Other emphysema J43.8 Active 19705037 Problem Other iron deficiency anemia D50.8 Active 91356897 Problem Reactive depression F32.9 Active 51746707 Problem Dysthymic disorder F34.1 Active 86860127 Problem Atherosclerotic heart disease of [place] coronary artery without angina pectoris I25.10 Active 815430182575645 Problem Coarse tremors G25.2 Active 09126041 Problem Claustrophobia F40.240 Active 91741526 Problem Chronic prescription benzodiazepine use Z79.899 Active 289068541 Problem Benign familial tremor G25.0 Active 927228572 Problem Mixed hyperlipidemia E78.2 Active 347202439 Problem CAD (coronary artery disease) 414.00 Active 76023025 Problem Supplemental oxygen dependent Z99.81 Active 693745161579 Problem Essential hypertension I10 Active 69514800 Problem Chronic obstructive pulmonary disease with acute exacerbation J44.1 Active 976972485 Problem Memory loss R41.3 Active 83506355 Problem Anxiety F41.9 Active 26982045 Problem Pulmonary emphysema, unspecified emphysema type J43.9 Active 54267021 Problem Nicotine abuse Z72.0 Active 01998942 Problem Irritable bowel syndrome with diarrhea K58.0 Active 047966554 ALLERGIES Substance Reaction Event Type Date Status Ultram Unknown Drug Allergy Sep, Active Sulfamethoxazole-Trimethoprim Unknown Drug Allergy Sep, Active Penicillin G Sodium Unknown Drug Allergy Sep, Active Imitrex Unknown Drug Allergy Sep, Active Effexor Xr 75 Mg Capsule,extended Release 24hr Unknown Non Drug Allergy Sep, Active Lipitor 20 Mg Tablet muscle aches Non Drug Allergy Sep, Active ENCOUNTERS Encounter Location Date Diagnosis [place] [id number] [address] Jan, [place] [address] [place] [id number] [place] [address] 64202- 8546 Nov, Atherosclerotic heart disease of [place] coronary artery without angina pectoris I25.10 [place] [address] [place] [id number] [address] Nov, Pulmonary emphysema, unspecified emphysema type J43.9 ; Therapeutic drug monitoring Z51.81 ; Anxiety F41.9 ; Atherosclerotic heart disease of [place] coronary artery without angina pectoris I25.10 ; Dysthymic disorder F34.1 ; Encounter for screening mammogram for breast cancer Z12.31 and Encounter for immunization Z23 [place] [address], [place] [address] 7[address] Nov, Anxiety F41.9 [place] [address] [place] [id number] [place] [address] 45304- 2922 Oct, [place] [address], [place] [address] 3986 Oct, [place] [address] [place] [id number] [place] [address] 12769- 5078 Oct, Anxiety F41.9 [place] [address], [place] [address] 4425 Sep, [place] [address], [place] [address] 7680 Sep, [place] [address], [place] [address]- 8095 Sep, Anxiety F41.9 [place] [address], [place] [address] 5511 Sep, Pulmonary emphysema, unspecified emphysema type J43.9 ; Other iron deficiency anemia D50.8 ; Pain of toe of left foot M79.675 and Pain in right toe(s) M79.674 [place] [address] [place] [id number] [place] [address] 61301- 2853 Sep, Mouth pain K13.79 [place] [address] 05604- 1212 Sep, Pain, dental K08.89 [place] [address] 34871- 1641 Sep, [place] [address] 32470- 0550 Sep, Pulmonary emphysema, unspecified emphysema type J43.9 ; Nicotine abuse Z72.0 ; Diarrhea, unspecified type R19.7 ; Mouth pain K13.79 and Vision changes H53.9 [place] [address] [place] [id number] [place] [address] 91491- 8643 Sep, [place] [address] 68516- 9030 August, Anxiety F41.9 [place] [address] 97143- 0504 Jul, Anxiety F41.9 [place] [address] 95055- 9579 Jun, Pulmonary emphysema, unspecified emphysema type J43.9 and Anxiety F41.9 [place] [address] [place] [id number] [place] [address] 38001- 8258 Jun, Anxiety F41.9 [facility] [address] [place] [id number] [place] [address] 14653- 5840 Jun, [place] [address] 85655- 6032 Jun, [place] [address] [place] [id number] [place] [address] 36097- 1374 Jun, [facility] [address] [place] [id number] [place] [address] 72800 -0583 Jun, Dysuria R30.0 and Acute cystitis with hematuria N30.01 [facility] [address] 89348- 5306 May, Anxiety F41.9 and Chronic prescription benzodiazepine use Z79.899 [facility] [address] 42413- 0554 May, Anxiety F41.9 and Chronic prescription benzodiazepine use Z79.899 [facility] [address] 48687- 6543 May, Benign familial tremor G25.0 [facility] [address] 62682- 1150 Apr, Other iron deficiency anemia D50.8 [facility] [address] 06321- 6442 Apr, Anxiety F41.9 [facility] [address] 33780- 7783 Apr, [facility] [address] 49789- 7292 Apr, Pancreatic cyst K86.2 ; Other iron deficiency anemia D50.8 ; Pulmonary emphysema, unspecified emphysema type J43.9 ; Coarse tremors G25.2 and Claustrophobia F40.240 [place] [address] 06295- 3804 Apr, Anxiety F41.9 [facility] [address] 69901- 8479 Mar, [place] [address] 91310- 0866 Mar, Anxiety F41.9 [facility] [address] 10465- 5968 Feb, Anxiety F41.9 [facility] [address] 36308- 1367 Jan, [facility] [address] [place] [id number] [place] [address] 92717- 6739 Jan, [facility] [address] [place] [id number] [place] [address] 83220- 6754 Jan, Anxiety F41.9 [place] [address] 21603- 6981 Jan, Pulmonary emphysema, unspecified emphysema type J43.9 ; Encounter for immunization Z23 ; Other iron deficiency anemia D50.8 ; Anxiety F41.9 ; Diarrhea, unspecified type R19.7 and Memory loss R41.3 [place] [address] 89036- 8001 Dec, Anxiety F41.[address] 16741- 7499 Dec, Irritable bowel syndrome with diarrhea K58.0 [place] [address] [place] [id number] [place] [address] 84040- 7375 05 Dec, 2016 Diarrhea, unspecified type R19.7 [place] [address] 73570- 8738 30 Nov, 2016 Acute non-recurrent maxillary sinusitis J01.00 ; Pulmonary emphysema, unspecified emphysema type J43.9 ; Diarrhea, unspecified type R19.7 and Other iron deficiency anemia D50.8 [place] [address] [place] [id number] [place] [address] 81868- 5006 Nov, [facility] [address] [place] [id number] [place] [address] 25087 -8165 Nov, Sore throat J02.9 and Strep pharyngitis J02.0 [place] [address] [place] [id number] [place] [address] 31625- 6075 Nov, Other iron deficiency anemia D50.8 [place] [address] [place] [id number] [place] [address] 14119- 6231 14 Nov, 2016 Anxiety F41.9 and Low hemoglobin D64.9 [place] [address] [place] [id number] [place] [address] 15690- 1125 14 Oct, 2016 Anxiety F41.9 [place] [address] [place] [id number] [place] [address] 78877- 8003 16 Sep, 2016 Anxiety F41.9 [place] [address] 76563- 9981 13 Sep, 2016 Left upper quadrant pain R10.12 [place] [address] 14233- 3216 07 Sep, 2016 Other iron deficiency anemia D50.8 and Left upper quadrant pain R10.12 [place] [address] 66618- 8981 August, Anxiety F41.9 [place] [address] 77291- 8701 August, Other iron deficiency anemia D50.8 and Left upper quadrant pain R10.12 [place] [address] [place] [id number] [place] [address] 11514- 2511 Jul, Other iron deficiency anemia D50.8 ; Acute gastric ulcer with hemorrhage K25.0 and Anxiety F41.9 [place] [address] [place] [id number] [place] [address] 40401- 0640 Jul, Other iron deficiency anemia D50.8 ; Other fatigue R53.83 ; Nicotine abuse Z72.0 ; Anxiety F41.9 and Pulmonary emphysema, unspecified emphysema type J43.9 [place] [address] [place] [id number] [place] [address] 74624- 4814 Jun, Other iron deficiency anemia D50.8 and Hematochezia K92.1 [place] [address] [place] [id number] [place] [address] 04895- 4706 Jun, Other fatigue R53.83 and Other iron deficiency anemia D50.8 [place] [address] 43948- 1332 Jun, Other fatigue R53.83 [place] [address] 80919- 5022 Jun, Other iron deficiency anemia D50.8 ; Nicotine abuse Z72.0 ; Anxiety F41.9 and Pulmonary emphysema, unspecified emphysema type J43.9 [place] [address] 72495- 7206 Jun, Low hemoglobin D64.9 [place] [address] 01912- 3375 16 Jun, 2016 Low hemoglobin D64.9 [place] [address] 67566- 8919 Jun, Anxiety F41.9 ; Nicotine abuse Z72.0 and Reactive depression F32.9 [place] [address] 26283- 8867 Jun, Anxiety F41.9 [place] [address] 94644- 1106 May, Anxiety F41.9 ; Nicotine abuse Z72.0 and Reactive depression F32.9 [place] [address] 96991- 4795 May, Anxiety F41.9 [place] [address] [place] [id number] [place] [address] 00126- 9365 May, Anxiety F41.9 ; Nicotine abuse Z72.0 and Reactive depression F32.9 [place] [address] [place] [id number] [place] [address] 20195- 1255 May, [place] [address] 88669- 5073 May, [place] [address] 97680- 5355 May, Anxiety F41.9 [facility] [address] [place] [id number] [place] [address] 97469- 3814 May, Other emphysema J43.8 ; Cramping of hands R25.2 ; Irritable bowel syndrome with diarrhea K58.0 ; Breast cancer screening Z12.39 ; Candidal stomatitis B37.0 and Candidal esophagitis B37.81 [facility] [address] 60845- 1826 Apr, Anxiety F41.9 [facility] [address] [place] [id number] [place] [address] 13359- 8115 Mar, Anxiety F41.9 [facility] [address] 55493- 5896 Feb, Anxiety F41.9 [facility] [address] [place] [id number] [place] [address] 25524- 4005 Jan, Anxiety F41.9 [facility] [address] [place] [id number] [place] [address] 40642- 1167 Jan, Anxiety F41.9 [facility] [address] 14908- 2283 Jan, Anxiety F41.9 [facility] [address] [place] [id number] [place] [address] 92078- 2304 Jan, Anxiety F41.9 ; Nicotine abuse Z72.0 ; Pulmonary emphysema, unspecified emphysema type J43.9 ; Memory loss R41.3 and Abdominal pain, unspecified location R10.9 [facility] [address] [place] [id number] [place] [address] 37699- 7305 Jan, [facility] [address] [place] [id number] [place] [address] 36455- 1091 21 Dec, 2015 Anxiety F41.9 [facility] [address] [place] [id number] [place] [address] 64284 -8790 13 Dec, 2015 Right arm pain M79.601 [facility] [address], [place] [address]- 4213 Nov, Anxiety F41.9 [facility] [address] [place] [address]- 2556 Oct, Anxiety F41.9 [facility] [address] [place] [address]- 8756 Oct, [facility] [address] [place] [id number] [place] [address] 55801- 3891 Sep, Anxiety F41.9 [facility] [address] [place] [address] 36849- 7412 Sep, Left lower quadrant pain R10.32 ; Memory loss R41.3 and Basal cell carcinoma of skin, unspecified C44.91 [facility] [address] [place] [address] 29889- 9126 Sep, Anxiety F41.9 [facility] [address], [place] [address]- 6116 August, Anxiety F41.9 [facility] [address] [place] [address] 94027- 6345 August, Left lower quadrant pain R10.32 ; Memory loss R41.3 ; Pulmonary emphysema, unspecified emphysema type J43.9 and Depression, unspecified depression type F32.9 [facility] [address], [place] [address]- 6966 August, [facility] [address] 1726 Jul, [facility] [address] [address] [address]- 4676 Jun, [facility] [address], [place] [address]- 4356 May, [facility] [address], [place] [address]- 9266 Apr, [facility] [address] [place] [address] 53790- 1673 Apr, Chronic obstructive pulmonary disease with acute exacerbation J44.1 ; Anxiety F41.9 and Nicotine abuse Z72.0 [facility] [address] [place] [id number] [place] [address] 32916- 7265 Apr, [facility] [address] 74921- 4000 Mar, Anxiety disorder, unspecified F41.9 [facility] [address] [place] [id number] [place] [address] 31860- 5041 Mar, [place] [address] [place] [id number] [place] [address] 17404- 9972 Feb, [facility] [address] [place] [id number] [place] [address] 70698- 9826 Nov, [facility] [address] [place] [id number] [place] [address] 78625- 3227 Nov, [facility] [address] [place] [address] [place] [address] 32969- 8052 Nov, Basal cell carcinoma 173.91 and Astigmatism with presbyopia 367.20 [place] [address] [place] [id number] [place] [address] 95182- 9609 Oct, [facility] [address] [place] [id number] [place] [address] 69228- 0251 Oct, Lipoma 214.9 [facility] [address] [place] [address] [place] [address] 16749- 4295 Sep, Ganglion cyst 727.43 ; Chronic airway obstruction, not elsewhere classified 496 ; Hypertension 401.9 ; CAD (coronary artery disease) 414.00 and Dysthymia 300.4 [facility] [address] [place] [id number] [place] [address] 66072- 6243 Jul, [facility] [address] 77902- 1837 Jul, [facility] [place] [facility] [address] [id number] [place] [address]- 7811 Jun, [facility] [place] [facility] [address] [id number] [place] 0400 Jun, [facility] [place] [facility] [address] [facility] [id number] [place] [address]- 1737 Jun, [facility] [place] [facility] [address] [id number] [place] [address]- 9986 Jun, [facility] [place] [facility] [address] [id number] [place] [address]- 7446 May, [facility] [place] [facility] [address] [facility] [id number] [place] [address]- 1049 May, [facility] [place] [facility] [address] [facility] [id number] [place] [address]- 8083 Mar, [facility] [place] [facility] [address] [id number] [place] [address]- 4021 Mar, [facility] [place] [facility] [address] [facility] [id number] [place] [address]- 6883 Mar, [facility] [place] [facility] [address] [facility] [id number] [place] [address]- 1886 Mar, [facility] [place] [facility] [address] [id number] [place] [address]- 5078 Feb, [facility] [place] [facility] [address] [id number] [address]- 2736 Feb, [facility] [place] [facility] [address] [id number] [place] [address]- 4935 Feb, [facility] [place] [facility] [address] [facility] [id number] [place] [address]- 9691 Feb, [facility] [place] [facility] [address] [facility] [id number] [place] [address]- 3234 Feb, [facility] [place] [facility] [address] [id number] [place] [address]- 5620 Feb, [facility] [place] [facility] [address] [id number] [place] [address]- 5830 Feb, [facility] [place] [facility] [address] [id number] [place] [address]- 3526 Feb, [facility] [place] [facility] [address] [id number] [place] [address]- 3519 Feb, [facility] [place] [facility] [address] [id number] [place] [address]- 5178 Feb, [facility] [place] [facility] [address] [id number] [place] [address]- 8219 Dec, [facility] [place] [facility] [address] [id number] [place] [address]- 5472 Dec, [facility] [place] [facility] [address] [id number] [place] [address]- 7437 Nov, [facility] [place] [facility] [address] [id number] [place] [address]- 1315 Oct, [facility] [place] [facility] [address] [id number] [place] [address]- 4114 Oct, [facility] [place] [facility] [address] [id number] [place] [address]- 4448 August, [facility] [place] [facility] [address] [id number] [place] [address]- 5746 August, [facility] [place] [facility] [address] [id number] [place] [address]- 3356 August, [facility] [place] [facility] [address] [id number] [place] [address]- 9286 August, [facility] [place] [facility] [address] [id number] [place] [address]- 4586 Jul, [facility] [place] [facility] [address] [id number] [place] [address]- 3701 Jul, [facility] [place] [facility] [address] [id number] [place] [address]- 6643 Jun, [facility] [place] [facility] [address] [id number] [place] [address]- 6362 Jun, [facility] [place] [facility] [address] [id number] [place] [address]- 8078 Jun, [facility] [place] [facility] [address] [id number] [place] [address]- 1763 Jun, [facility] [place] [facility] [address] [id number] [place] [address]- 1462 Jun, [facility] [place] [facility] [address] [id number] [place] [address]- 5388 Jun, [facility] [place] [facility] [address] [id number] [place] [address]- 3052 Jun, [facility] [place] [facility] [address] [id number] [place] [address]- 1757 Jun, [facility] [place] [facility] [address] [id number] [place] [address]- 6250 Jun, [facility] [place] [facility] [address] [id number] [place] [address]- 0643 Jun, [facility] [place] [facility] [address] [id number] [place] [address]- 9146 Jun, [facility] [place] [facility] [address] [id number] [place] [address]- 8347 Jun, [facility] [place] [facility] [address] [id number] [place] [address]- 7071 Jun, [facility] [place] [facility] [address] [id number] [place] [address]- 5709 Jun, [facility] [place] [facility] [address] [id number] [place] [address]- 6006 Jun, [facility] [place] [facility] [address] [id number] [place] [address]- 7879 04 Jun, 2013 [facility] [place] [facility] [address] [id number] [place] [address]- 1143 04 Jun, 2013 [facility] [place] [facility] [address] [id number] [place] [address]- 9456 Jun, [facility] [place] [facility] [address] [id number] [place] [address]- 0971 Jun, [facility] [place] [facility] [address] [id number] [place] [address]- 1928 May, [facility] [place] [facility] [address] [id number] [place] [address]- 7821 May, [facility] [place] [facility] [address] [id number] [place] [address]- 3776 May, [facility] [place] [facility] [address] [id number] [place] [address] May, [facility] [place] [facility] [address] [id number] [place] [address] Apr, [facility] [place] [facility] [address] [id number] [place] [address] Apr, [facility] [place] [facility] [address] [facility] [id number] [place] [address] Mar, [facility] [place] [facility] [address] [id number] [place] [address] Mar, [facility] [place] [facility] [address] [id number] [place] [address] Mar, [facility] [place] [facility] [address] [id number] [place] [address] Mar, [facility] [place] [facility] [address] [id number] [place] [address] Mar, [facility] [place] [facility] [address] [facility] [id number] [place] [address] Mar, [facility] [place] [facility] [address] [id number] [place] [address] Mar, [facility] [place] [facility] [address] [id number] [place] [address] Mar, [facility] [place] [facility] [address] [id number] [place] [address] Mar, [facility] [place] [facility] [address] [id number] [place] [address] Mar, [facility] [place] [facility] [address] [id number] [place] [address] Mar, [facility] [place] [facility] [address] [id number] [place] [address] Feb, [facility] [place] [facility] [address] [id number] [place] [address] Feb, [facility] [place] [facility] [address] [id number] [place] [address] Jan, [facility] [place] [facility] [address] [id number] [place] [address] Jan, [facility] [place] [facility] [address] [id number], [place] [address] Jan, [facility] [place] [facility] [address] [id number] [place] [address] Nov, [facility] [place] [facility] [address] [id number], [place] [address] Oct, [facility] [place] [facility] [address] [id number] [place] [address] Oct, [facility] [place] [facility] [address] [id number] [place] [address] Oct, [facility] [place] [facility] [address] [id number], [place] [address] Oct, [facility] [place] [facility] [address] [id number], [place] [address] Oct, [facility] [address] [id number] [place] [address] Oct, [facility] [address] [id number] [place] [address] Oct, [facility] [address] [id number] [place] [address] Oct, [facility] [address] [id number] [place] [address] Sep, [facility] [address] [id number] [place] [address] Sep, [facility] [address] [id number] [place] [address] Sep, [facility] [address] [id number] [place] [address] Sep, [facility] [address] [id number] [place] [address] August, [facility] [address] [id number] [place] [address] August, [facility] [address] [id number] [place] [address] August, [facility] [address] [id number] [place] [address] August, [facility] [address] [id number] [place] [address] August, [facility] [address] [id number] [place] [address] August, [facility] [facility] [address] [id number] [place] [address] Jul, [facility] [address] [id number] [place] [address] May, [facility] [address] [id number] [place] [address] Apr, [facility] [place] [facility] [address] [id number] [place] [address] Apr, [facility] [place] [facility] [address] [id number] [place] [address] Apr, [facility] [place] [facility] [address] [id number] [place] [address] Mar, [facility] [place] [facility] [address] [id number] [place] [address] Mar, [facility] [place] [facility] [address] [id number] [place] [address] Mar, [facility] [place] [facility] [address] [id number] [place] [address] Mar, [facility] [place] [facility] [address] [id number] [place] [address] Jan, [facility] [address] [id number] [place] [address] Nov, [facility] [place] [facility] [address] [id number] [place] [address] Sep, [facility] [place] [facility] [address] [id number] [place] [address] August, [facility] [place] [facility] [address] [id number] [place] [address] August, [facility] [place] [facility] [address] [id number] [place] [address] Jul, [facility] [place] [facility] [address] [id number] [place] [address] Jul, [facility] [place] [facility] [address] [id number] [place] [address] Jul, [facility] [place] [facility] [address] [id number] [place] [address] Jul, [facility] [id number] [address] Jul, [facility] [id number] [address] Jun, [facility] [id number] [address] Apr, [facility] [id number] [address] Feb, [facility] [id number] [address] Nov, [facility] [id number] [place] [address] Oct, [facility] [id number] [address] Feb, [facility] [id number] [address] August, [facility] [id number] [place] [address] Jul, [facility] [id number] [place] [address] Jun, IMMUNIZATIONS No Known Immunizations SOCIAL HISTORY Never Assessed REASON FOR VISIT Anemia f/u [facility], PT has no energy at all PLAN OF CARE Activity Details Follow Up 3 Months Reason:anemia VITAL SIGNS Height 63 in 2017-09-27 Weight 132 lbs 2017-09-27 Temperature 99.4 degrees Fahrenheit 2017-09-27 Heart Rate 106 bpm 2017-09-27 Respiratory Rate 22 2017-09-27 Oximetry w/ oxygen:97 % 2017-09-27 BMI 23.38 kg/m2 2017-09-27 Blood pressure systolic 112 mmHg 2017-09-27 Blood pressure diastolic 74 mmHg 2017-09-27 MEDICATIONS Medication Instructions Dosage Frequency Start Date End Date Duration Status Trelegy Ellipta Inhalation Once a day 1 puff 24h Active Nitroglycerin 0.4 MG Active Metoprolol Tartrate 25 mg take 1 tablet (25 mg) by oral route 2 times per day Sep, Active PredniSONE 10 mg Orally Once a day- taper 1 tablet Active Montelukast Sodium 10 mg Orally Once a day at bedtime 1 tablet in the evening Active Aspirin 81 mg take 1 tablet (81 mg) by oral route once daily Sep, Active Ferrous Sulfate 325 (65 Fe) MG Orally Once a day 2 tablets 24h Jun, Active Vitamin C 500 MG Active Cetirizine HCl 10 MG Orally Once a day 1 tablet 24h Active PredniSONE 10 MG Orally Once a day 24h Active Albuterol Sulfate 1.25 mg/3 mL inhale 3 milliliters via nebulizer by Inhalation route 4 times per day PRN as needed Dec, Active Ipratropium-Albuterol 0.5-2.5 (3) MG/3ML Inhalation Four times a day 3 ml 6h Active Pristiq 100 MG TAKE ONE TABLET BY MOUTH DAILY 90 Active Oxygen Active Cholestyramine 4 GM/DOSE Orally Twice a day 1 scoop 12h Sep, 30 day(s) Active Ativan 1 MG Orally 2 times a day 1 tablet as needed 12h Jun, 28 days Active Folic Acid 0.8 mg Orally Once a day 1/2 tablet 24h Active Isosorbide Mononitrate ER 30 MG TAKE ONE TABLET BY MOUTH IN THE MORNING 90 Active Magnesium 250 MG Orally twice a day 1 tablet with a meal 12h Active RESULTS Name Result Date Reference Range CBC 2017-09-27 WHITE BLOOD CELL COUNT 18.7 3.8-10.8 RED BLOOD CELL COUNT 4.15 3.80-5.10 HEMOGLOBIN 12.4 11.7-15.5 HEMATOCRIT 37.8 35.0-45.0 MCV 91.1 80.0-100.0 MCH 29.9 27.0-33.0 MCHC 32.8 32.0-36.0 RDW 12.2 11.0-15.0 PLATELET COUNT 353 140-400 MPV 9.3 7.5-12.5 ABSOLUTE NEUTROPHILS 65188 [id number] ABSOLUTE LYMPHOCYTES 417 238-4477 ABSOLUTE MONOCYTES 954 200-950 ABSOLUTE EOSINOPHILS 56 15-500 ABSOLUTE BASOPHILS 94 0-200 NEUTROPHILS 91 LYMPHOCYTES 3.1 MONOCYTES 5.1 EOSINOPHILS 0.3 BASOPHILS 0.5 PROCEDURES Procedure Date Ordered Result Body Site LAB NOT BILLED BY [facility] September 27, 2017 [facility] VISIT ESTABLISHED PATIENT September 27, 2017 INSTRUCTIONS MEDICATIONS ADMINISTERED No Known Medications [...]
--- OUTSIDE RECORDS SUMMARY | 2017-12-30 00:30 | XMS REPORT ---
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 Active 218471606138362 Problem Coarse tremors G25.2 Active 43707398 Problem Claustrophobia F40.240 Active 65962307 Problem Chronic prescription benzodiazepine use Z79.899 Active 701598039 Problem Benign familial tremor G25.0 Active 004495641 Problem Mixed hyperlipidemia E78.2 Active 618665184 Problem CAD (coronary artery disease) 414.00 Active 85237954 Problem Supplemental oxygen dependent Z99.81 Active 474604994247 Problem Essential hypertension I10 Active 81361767 Problem Chronic obstructive pulmonary disease with acute exacerbation J44.1 Active 201054124 Problem Memory loss R41.3 Active 37526092 Problem Anxiety F41.9 Active 34072390 Problem Pulmonary emphysema, unspecified emphysema type J43.9 Active 85279127 Problem Nicotine abuse Z72.0 Active 56007627 Problem Irritable bowel syndrome with diarrhea K58.0 Active 489352696 ALLERGIES No Information ENCOUNTERS Encounter Location Date Diagnosis [facility] [place] [facility] [address] [address] Jan, [facility] [place] [facility] [address] [address] Nov, 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 [facility] [place] [facility] [address] [place] [id number] [place] [address] 91080- 2623 Nov, Pulmonary emphysema, unspecified emphysema type J43.9 ; Therapeutic drug monitoring Z51.81 ; Anxiety F41.9 ; 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 ; Dysthymic disorder F34.1 ; Encounter for screening mammogram for breast cancer Z12.31 and Encounter for immunization Z23 [place] [address] [address]- [address] Nov, Anxiety F41.9 [place] [address] 35482- 0097 Oct, [place] [address] 95017- 8363 Oct, [place] [address] [address]- 6931 Oct, Anxiety F41.9 [place] [address] 28892- 7174 Sep, [place] [address] 25243- 2762 Sep, [place] [address] 11414- 1891 Sep, Anxiety F41.9 [place] [address] [place] [id number] [place] [address] 01248- 5926 Sep, Pulmonary emphysema, unspecified emphysema type J43.9 ; Other iron deficiency anemia D50.8 ; Pain of toe of left foot M79.675 and Pain in right toe(s) M79.674 [place] [address] 04743- 5552 05 Sep, 2017 Mouth pain K13.79 [place] [address] 93082- 4830 04 Sep, 2017 Pain, dental K08.89 [place] [address] 86990- 8409 Sep, [facility] [place] [facility] [address] 83944- 2414 Sep, Pulmonary emphysema, unspecified emphysema type J43.9 ; Nicotine abuse Z72.0 ; Diarrhea, unspecified type R19.7 ; Mouth pain K13.79 and Vision changes H53.9 [facility] [place] [facility] [address] 45567- 2956 Sep, [facility] [place] [facility] [address] 33276- 3750 August, Anxiety F41.9 [place] [address] 56661- 3753 Jul, Anxiety F41.9 [place] [address] 04296- 6241 Jun, Pulmonary emphysema, unspecified emphysema type J43.9 and Anxiety F41.9 [place] [address] 64040- 9931 Jun, Anxiety F41.9 [facility] [facility] [address] 60085- 6775 Jun, [facility] [place] [facility] [id number] [place] [address] 17742- 0295 Jun, [facility] [place] [facility] [id number] [place] [address] 52554- 0001 Jun, [facility] [id number] [place] [address] 07647 -2198 Jun, Dysuria R30.0 and Acute cystitis with hematuria N30.01 [facility] [facility] [id number] [place] [address] 32254- 6304 May, Anxiety F41.9 and Chronic prescription benzodiazepine use Z79.899 [facility] [facility] [address] 61170- 1768 May, Anxiety F41.9 and Chronic prescription benzodiazepine use Z79.899 [facility] [facility] [address] 14940- 8481 May, Benign familial tremor G25.0 [facility] [place] [facility] [address] 58089- 5096 Apr, Other iron deficiency anemia D50.8 [facility] [place] [facility] [address] 27918- 2379 Apr, Anxiety F41.9 [facility] [facility] [address] 31874- 6211 Apr, [facility] [place] [facility] [address] 41623- 6722 Apr, Pancreatic cyst K86.2 ; Other iron deficiency anemia D50.8 ; Pulmonary emphysema, unspecified emphysema type J43.9 ; Coarse tremors G25.2 and Claustrophobia F40.240 [facility] [facility] [address] 69215- 7097 Apr, Anxiety F41.9 [place] [address] 16345- 8153 Mar, [facility] [facility] [address] 23508- 7142 Mar, Anxiety F41.9 [facility] [place] [facility] [address] 80081- 3439 Feb, Anxiety F41.9 [facility] [facility] [id number] [place] [address] 58986- 4337 Jan, [facility] [facility] [address] 10894- 0218 Jan, [facility] [facility] [address] 78743- 2763 Jan, Anxiety F41.9 [facility] [facility] [address] [place] [place] [id number] [place] [address] 76919- 7888 Jan, Pulmonary emphysema, unspecified emphysema type J43.9 ; Encounter for immunization Z23 ; Other iron deficiency anemia D50.8 ; Anxiety F41.9 ; Diarrhea, unspecified type R19.7 and Memory loss R41.3 [place] [address] 49268- 9808 Dec, Anxiety F41.9 [place] [address] 08545- 7551 07 Dec, 2016 Irritable bowel syndrome with diarrhea K58.0 [place] [address] 515385- 6858 05 Dec, 2016 Diarrhea, unspecified type R19.7 [place] [address] 81151- 2018 Nov, Acute non-recurrent maxillary sinusitis J01.00 ; Pulmonary emphysema, unspecified emphysema type J43.9 ; Diarrhea, unspecified type R19.7 and Other iron deficiency anemia D50.8 [place] [address] 13453- 1275 Nov, [facility] [id number] [place] [address] 42622 -2250 Nov, Sore throat J02.9 and Strep pharyngitis J02.0 [place] [address] [id number] [place] [address] 09784- 8164 Nov, Other iron deficiency anemia D50.8 [place] [address] [id number] [place] [address] 52604- 1763 Nov, Anxiety F41.9 and Low hemoglobin D64.9 [place] [address] [place] [id number] [place] [address] 91086- 3906 Oct, Anxiety F41.9 [place] [address] 46419- 6998 Sep, Anxiety F41.9 [place] [address] [place] [address] 75922- 5582 13 Sep, 2016 Left upper quadrant pain R10.12 [place] [address] [place] [id number] [place] [address] 31657- 8390 07 Sep, 2016 Other iron deficiency anemia D50.8 and Left upper quadrant pain R10.12 [place] [address] [place] [id number] [place] [address] 32503- 5392 17 Aug, 2016 Anxiety F41.9 [place] [address] [place] [id number] [place] [address] 90826- 4455 10 Aug, 2016 Other iron deficiency anemia D50.8 and Left upper quadrant pain R10.12 [place] [address] [id number] [place] [address] 31049- 9559 19 Jul, 2016 Other iron deficiency anemia D50.8 ; Acute gastric ulcer with hemorrhage K25.0 and Anxiety F41.9 [place] [address] [id number] [place] [address] 35722- 0520 18 Jul, 2016 Other iron deficiency anemia D50.8 ; Other fatigue R53.83 ; Nicotine abuse Z72.0 ; Anxiety F41.9 and Pulmonary emphysema, unspecified emphysema type J43.9 [place] [address] [id number] [place] [address] 80761- 5912 31 Jun, 2016 Other iron deficiency anemia D50.8 and Hematochezia K92.1 [place] [address] [id number] [place] [address] 61917- 8019 Jun, Other fatigue R53.83 and Other iron deficiency anemia D50.8 [place] [address] [id number] [place] [address] 34617- 1654 Jun, Other fatigue R53.83 [place] [address] [id number] [place] [address] 00182- 1967 Jun, Other iron deficiency anemia D50.8 ; Nicotine abuse Z72.0 ; Anxiety F41.9 and Pulmonary emphysema, unspecified emphysema type J43.9 [place] [address] [place] [id number] [place] [address] 39360- 9387 17 Jun, 2016 Low hemoglobin D64.9 [place] [address] 50040- 2893 16 Jun, 2016 Low hemoglobin D64.9 [place] [address] 70567- 9116 14 Jun, 2016 Anxiety F41.9 ; Nicotine abuse Z72.0 and Reactive depression F32.9 [place] [address] 55777- 8684 Jun, Anxiety F41.9 [place] [address] 35239- 3680 May, Anxiety F41.9 ; Nicotine abuse Z72.0 and Reactive depression F32.9 [place] [address] 59457- 9533 May, Anxiety F41.9 [place] [address] [place] [id number] [place] [address] 75313- 5556 May, Anxiety F41.9 ; Nicotine abuse Z72.0 and Reactive depression F32.9 [place] [address] 32108- 8844 May, [place] [address] [place] [id number] [place] [address] 80497- 7802 May, [place] [address] [place] [id number] [place] [address] 89115- 1976 May, Anxiety F41.9 [place] [address] [place] [id number] [place] [address] 8052 May, Other emphysema J43.8 ; Cramping of hands R25.2 ; Irritable bowel syndrome with diarrhea K58.0 ; Breast cancer screening Z12.39 ; Candidal stomatitis B37.0 and Candidal esophagitis B37.81 [facility] [id number] [place] [address] 48709- 2701 10 Apr, 2016 Anxiety F41.9 [facility] [id number] [place] [address] 96922- 3264 Mar, Anxiety F41.9 [facility] [id number] [place] [address] 03794- 6918 Feb, Anxiety F41.9 [facility] [id number] [place] [address] 49277- 9932 Jan, Anxiety F41.9 [facility] [address] 56608- 5627 Jan, Anxiety F41.9 [facility] [address] 42576- 0855 Jan, Anxiety F41.9 [facility] [address] 54307- 2553 Jan, Anxiety F41.9 ; Nicotine abuse Z72.0 ; Pulmonary emphysema, unspecified emphysema type J43.9 ; Memory loss R41.3 and Abdominal pain, unspecified location R10.9 [facility] [id number] [place] [address] 44736- 8896 Jan, [facility] [id number] [place] [address] 99214- 9787 Dec, Anxiety F41.9 [facility] [id number] [place] [address] 69983 -4991 Dec, Right arm pain M79.601 [facility] [id number] [place] [address] 00101- 9946 Nov, Anxiety F41.9 [facility] [id number] [place] [address] 95221- 9382 Oct, Anxiety F41.9 [facility] [address] [place] [address]- 7475 Oct, [facility] [id number] [place] [address] 01329- 6771 Sep, Anxiety F41.9 [facility] [facility] [id number] [place] [address] 72885- 0199 Sep, Left lower quadrant pain R10.32 ; Memory loss R41.3 and Basal cell carcinoma of skin, unspecified C44.91 [facility] [id number] [place] [address] 89370- 8189 Sep, Anxiety F41.9 [facility] [facility] [address] [id number] [place] [address] 12930- 5034 August, Anxiety F41.9 [facility] [facility] [address] [id number] [place] [address] 39620- 2272 August, Left lower quadrant pain R10.32 ; Memory loss R41.3 ; Pulmonary emphysema, unspecified emphysema type J43.9 and Depression, unspecified depression type F32.9 [facility] [facility] [address] [place] [address] 50444- 1737 August, [facility] [facility] [address] [place] [id number] [place] [address] 64104- 0220 Jul, [facility] [facility] [address] [place] [address] 36539- 8195 Jun, [facility] [facility] [id number] [place] [address] 81585- 6831 May, [facility] [address] [place] [address] 02048- 8506 Apr, [facility] [facility] [address] [place] [place] [id number] [place] [address] 61333- 7941 Apr, Chronic obstructive pulmonary disease with acute exacerbation J44.1 ; Anxiety F41.9 and Nicotine abuse Z72.0 [facility] [id number] [place] [address] 69498- 1830 Apr, [facility] [facility] [address] [address]- 4937 Mar, Anxiety disorder, unspecified F41.9 [facility] [facility] [id number] [place] [address] 91141- 4877 Mar, [facility] [facility] [id number] [place] [address] 708153- 0091 Feb, [facility] [facility] [id number] [place] [address] 258703- 2240 Nov, [facility] [id number] [place] [address] 642345- 4843 Nov, [facility] [facility] [address] [place] [id number] [place] [address] 75350- 5561 Nov, Basal cell carcinoma 173.91 and Astigmatism with presbyopia 367.20 [facility] [address] [place] [place] [id number] [place] [address] 81996- 8697 Oct, [facility] [id number] [place] [address] 42642- 8670 Oct, Lipoma 214.9 [facility] [address] [id number] [place] [address] 44200- 9789 Sep, Ganglion cyst 727.43 ; Chronic airway obstruction, not elsewhere classified 496 ; Hypertension 401.9 ; CAD (coronary artery disease) 414.00 and Dysthymia 300.4 [facility] [id number] [address]- 6491 Jul, [facility] [id number] [place] [address] 026372- 2170 Jul, [facility] [facility] [id number] [place] [address] 192840- 5046 Jun, [facility] [facility] [address] [address]- 8590 Jun, [facility] [address] [address]- 4577 Jun, [facility] [place] [facility] [address] [id number] [place] [address]- 3884 Jun, [facility] [place] [facility] [address] [id number] [place] [address]- 2533 12 May, 2014 [facility] [place] [facility] [address] [id number] [place] [address]- 2183 May, [facility] [place] [facility] [address] [id number] [place] [address]- 7088 Mar, [facility] [place] [facility] [address] [id number] [place] [address]- 1729 Mar, [facility] [place] [facility] [address] [id number] [place] [address]- 4276 Mar, [facility] [place] [facility] [address] [id number] [place] [address]- 3599 Mar, [facility] [place] [facility] [address] [id number] [place] [address]- 4609 Feb, [facility] [place] [facility] [address] [id number] [place] [address]- 2807 Feb, [facility] [place] [facility] [address] [id number] [place] [address]- 5005 Feb, [facility] [place] [facility] [address] [id number] [place] [address]- 6697 Feb, [facility] [place] [facility] [address] [id number] [place] [address]- 4330 Feb, [facility] [place] [facility] [address] [id number] [place] [address]- 9574 Feb, [facility] [place] [facility] [address] [id number] [place] [address]- 8717 Feb, [facility] [place] [facility] [address] [id number] [place] [address]- 2330 Feb, [facility] [place] [facility] [address] [id number] [place] [address]- 1945 Feb, [facility] [place] [facility] [address] [id number] [place] [address]- 2682 Feb, [facility] [place] [facility] [address] [id number] [place] [address]- 4582 Dec, [facility] [place] [facility] [address] [id number] [place] [address]- 1113 Dec, [facility] [place] [facility] [address] [id number] [place] [address]- 4200 Nov, [facility] [place] [facility] [address] [id number] [place] [address]- 3099 Oct, [facility] [place] [facility] [address] [id number] [place] [address]- 4743 Oct, [facility] [place] [facility] [address] [id number] [place] [address]- 9192 August, [facility] [place] [facility] [address] [id number] [place] [address]- 2396 August, [facility] [place] [facility] [address] [id number] [place] [address]- 8245 August, [facility] [place] [facility] [address] [id number] [place] [address]- 8655 August, [facility] [place] [facility] [address] [id number] [place] [address]- 6854 Jul, [facility] [place] [facility] [address] [id number] [place] [address]- 6932 Jul, [facility] [place] [facility] [address] [id number] [place] [address]- 1798 Jun, [facility] [place] [facility] [address] [id number] [place] 7732 Jun, [facility] [place] [facility] [address] [id number] [place] [address]- 0714 25 Jun, 2013 [facility] [place] [facility] [address] [id number] [place] [address]- 1689 18 Jun, 2013 [facility] [place] [facility] [address] [id number] [place] [address]- 3609 18 Jun, 2013 [facility] [place] [facility] [address] [id number] [place] [address]- 7169 Jun, [facility] [place] [facility] [address] [id number] [place] [address]- 8806 Jun, [facility] [place] [facility] [address] [id number] [place] [address]- 8343 Jun, [facility] [place] [facility] [address] [id number] [place] [address]- 7196 Jun, [facility] [place] [facility] [address] [id number] [place] [address]- 3703 10 Jun, 2013 [facility] [place] [facility] [address] [id number] [place] [address]- 6793 Jun, [facility] [place] [facility] [address] [id number] [place] [address]- 8672 Jun, [facility] [place] [facility] [address] [id number] [place] [address]- 6839 Jun, [facility] [place] [facility] [address] [id number] [place] [address]- 1699 Jun, [facility] [place] [facility] [address] [id number] [place] [address]- 6512 Jun, [facility] [place] [facility] [address] [id number] [place] [address]- 6141 Jun, [facility] [place] [facility] [address] [id number] [place] [address]- 2287 Jun, [facility] [place] [facility] [address] [id number] [place] [address]- 0033 Jun, [facility] [place] [facility] [address] [id number] [place] [address]- 4570 Jun, [facility] [place] [facility] [address] [id number] [place] [address]- 5795 May, [facility] [place] [facility] [address] [id number] [place] 9496 May, [facility] [place] [facility] [address] [id number] [place] [address]- 6011 May, [facility] [place] [facility] [address] [id number] [place] [address]- 1933 May, [facility] [place] [facility] [address] [id number] [place] [address]- 2865 Apr, [facility] [place] [facility] [address] [id number] [place] [address]- 8356 Apr, [facility] [place] [facility] [address] [id number] [place] [address]- 6988 Mar, [facility] [place] [facility] [address] [id number] [place] [address]- 2726 Mar, [facility] [place] [facility] [address] [id number] [place] [address]- 7919 Mar, [facility] [place] [facility] [address] [id number] [place] [address] Mar, [facility] [place] [facility] [address] [id number] [place] [address] Mar, [facility] [place] [facility] [address] [id number] [place] [address] Mar, [facility] [place] [facility] [address] [id number] [place] [address] Mar, [facility] [place] [facility] [address] [id number] [place] [address] Mar, [facility] [place] [facility] [address] [id number] [place] [address] Mar, [facility] [place] [facility] [address] [id number] [place] [address] Mar, [facility] [place] [facility] [address] [id number] [place] [address] Mar, [facility] [place] [facility] [address] [id number] [place] [address] Feb, [facility] [place] [facility] [address] [id number] [place] [address] Feb, [facility] [place] [facility] [address] [id number] [place] [address] Jan, [facility] [place] [facility] [address] [id number] [place] [address] Jan, [facility] [place] [facility] [address] [id number] [place] [address] Jan, [facility] [place] [facility] [address] [id number] [place] [address] Nov, [facility] [place] [facility] [address] [id number] [place] [address] Oct, [facility] [place] [facility] [address] [id number] [place] [address] Oct, [facility] [place] [facility] [address] [id number] [place] [address] Oct, [facility] [place] [facility] [address] [id number] [place] [address] 16 Oct, 2012 [facility] [place] [facility] [address] [id number] [place] [address] Oct, [facility] [place] [facility] [address] [id number] [place] [address] Oct, [facility] [place] [facility] [address] [id number] [place] [address] Oct, [facility] [place] [facility] [address] [id number] [place] [address] Oct, [facility] [address] [id number] [place] [address] Sep, [facility] [place] [facility] [address] [id number] [place] [address] Sep, [facility] [address] [id number] [place] [address] Sep, [facility] [address] [id number] [place] [address] Sep, [facility] [address] [id number] [place] [address] August, [facility] [address] [id number] [place] [address] August, [facility] [address] [id number] [place] [address] August, [facility] [address] [id number] [place] [address] August, [facility] [address] [id number] [place] [address] August, [facility] [address] [id number] [place] [address] August, [facility] [place] [facility] [address] [id number] [place] [address] Jul, [facility] [place] [facility] [address] [id number] [place] [address] May, [facility] [place] [facility] [address] [id number] [place] [address] Apr, [facility] [place] [facility] [address] [id number] [place] [address] Apr, [facility] [place] [facility] [address] [id number] [place] [address] Apr, [facility] [place] [facility] [address] [id number] [place] [address] Mar, [facility] [place] [facility] [address] [id number] [place] [address] Mar, [facility] [place] [facility] [address] [id number] [place] [address] Mar, [facility] [place] [facility] [address] [id number] [place] [address] Mar, [facility] [place] [facility] [address] [id number] [place] [address] Jan, [facility] [place] [facility] [address] [id number] [place] [address] Nov, [facility] [place] [facility] [address] [id number] [place] [address] Sep, [facility] [place] [facility] [address] [id number] [place] [address] August, [facility] [place] [facility] [address] [id number] [place] [address] August, [facility] [place] [facility] [address] [id number] [place] [address] Jul, [facility] [place] [facility] [address] [id number] [address] Jul, [facility] [place] [facility] [address] [id number] [address] Jul, [facility] [place] [facility] [address] [id number] [place] [address] Jul, [facility] [place] [facility] [address] [id number] [address] Jul, [facility] [place] [facility] [address] [id number] [place] [address] Jun, [facility] [place] [facility] [address] [id number] [address] Apr, [facility] [place] [facility] [address] [id number] [address] Feb, [facility] [place] [facility] [id number] [address] Nov, [facility] [place] [facility] [id number] [address] Oct, [facility] [place] [facility] [id number] [address] Feb, [facility] [place] [facility] [id number] [address] August, [facility] [place] [facility] [id number] [address] Jul, [facility] [place] [facility] [id number] [address] Jun, IMMUNIZATIONS No Known Immunizations SOCIAL HISTORY [...]
--- OUTSIDE RECORDS SUMMARY | 2017-12-30 00:31 | XMS REPORT ---
Author Author CAESY SIMPSON Organization [facility] Address [address] [place] [address] Care Team Providers Care Branch Service Representative Name Role Phone CASEY SIMPSON Unavailable PROBLEMS Type Condition ICD9-CM Code ARM76-UC Code Onset Dates Condition Status SNOMED Code Problem Other emphysema J43.8 Active 36612298 Problem Other iron deficiency anemia D50.8 Active 14938709 Problem Reactive depression F32.9 Active 30115617 Problem Dysthymic disorder F34.1 Active 66366742 Problem Atherosclerotic heart disease of [place] coronary artery without angina pectoris I25.10 Active [id number] Problem Coarse tremors G25.2 Active 73441804 Problem Claustrophobia F40.240 Active 62178636 Problem Chronic prescription benzodiazepine use Z79.899 Active 058923776 Problem Benign familial tremor G25.0 Active 642890892 Problem Mixed hyperlipidemia E78.2 Active 078509704 Problem CAD (coronary artery disease) 414.00 Active 45615915 Problem Supplemental oxygen dependent Z99.81 Active 599768778219 Problem Essential hypertension I10 Active 94048908 Problem Chronic obstructive pulmonary disease with acute exacerbation J44.1 Active 211140562 Problem Memory loss R41.3 Active 99433166 Problem Anxiety F41.9 Active 76915347 Problem Pulmonary emphysema, unspecified emphysema type J43.9 Active 13618802 Problem Nicotine abuse Z72.0 Active 59051374 Problem Irritable bowel syndrome with diarrhea K58.0 Active 241382481 ALLERGIES Substance Reaction Event Type Date Status Ultram Unknown Drug Allergy Sep, Active Sulfamethoxazole-Trimethoprim Unknown Drug Allergy Sep, Active Penicillin V Potassium Unknown Drug Allergy Sep, Active Imitrex Unknown Drug Allergy Sep, Active Effexor Xr 75 Mg Capsule,extended Release 24hr Unknown Non Drug Allergy Sep, Active Lipitor 20 Mg Tablet muscle aches Non Drug Allergy Sep, Active ENCOUNTERS Encounter Location Date Diagnosis [place] [address] [address] Jan, [place] [address] [place] [id number] [place] [address] 03138- 3089 Nov, Atherosclerotic heart disease of [place] coronary artery without angina pectoris I25.10 [place] [id number] [address] Nov, Pulmonary emphysema, unspecified emphysema type J43.9 ; Therapeutic drug monitoring Z51.81 ; Anxiety F41.9 ; Atherosclerotic heart disease of [place] coronary artery without angina pectoris I25.10 ; Dysthymic disorder F34.1 ; Encounter for screening mammogram for breast cancer Z12.31 and Encounter for immunization Z23 [place] [address], [place] [address] 17[address] Nov, Anxiety F41.9 [place] [address] [place] [id number] [place] [address] 77880- 0011 Oct, [place] [address], [place] [address] 8971 Oct, [place] [address] [place] [id number] [place] [address] 57172- 5620 Oct, Anxiety F41.9 [place] [address], [place] [address] 3708 Sep, [place] [address] [address] 9066 Sep, [place] [address] [address]- 9961 Sep, Anxiety F41.9 [place] [address], [place] [address] 9216 Sep, Pulmonary emphysema, unspecified emphysema type J43.9 ; Other iron deficiency anemia D50.8 ; Pain of toe of left foot M79.675 and Pain in right toe(s) M79.674 [place] [address] [place] [id number] [place] [address] 42880- 4123 Sep, Mouth pain K13.79 [place] [address] [address]- 3452 Sep, Pain, dental K08.89 [place] [address] 32413- 9233 Sep, [place] [address] 16830- 9020 Sep, Pulmonary emphysema, unspecified emphysema type J43.9 ; Nicotine abuse Z72.0 ; Diarrhea, unspecified type R19.7 ; Mouth pain K13.79 and Vision changes H53.9 [place] [address] [place] [id number] [place] [address] 68265- 6105 Sep, [place] [address] 19184- 7369 August, Anxiety F41.9 [place] [address] 56968- 6930 Jul, Anxiety F41.9 [place] [address] 06409- 7500 Jun, Pulmonary emphysema, unspecified emphysema type J43.9 and Anxiety F41.9 [facility] [address] [place] [id number] [place] [address] 96603- 0408 Jun, Anxiety F41.9 [facility] [address] [place] [id number] [place] [address] 52255- 5967 Jun, [place] [address] 06646- 4153 Jun, [place] [address] [place] [id number] [place] [address] 00364- 7427 Jun, [facility] [address] [place] [address] [id number] [place] [address] 75507 -1623 Jun, Dysuria R30.0 and Acute cystitis with hematuria N30.01 [facility] [address] 07386- 0646 May, Anxiety F41.9 and Chronic prescription benzodiazepine use Z79.899 [facility] [address] 26323- 4265 May, Anxiety F41.9 and Chronic prescription benzodiazepine use Z79.899 [facility] [address] 04945- 4678 May, Benign familial tremor G25.0 [facility] [address] 29049- 0837 Apr, Other iron deficiency anemia D50.8 [facility] [address] 62313- 1513 Apr, Anxiety F41.9 [facility] [address] 88435- 4562 Apr, [facility] [address] 87001- 3774 Apr, Pancreatic cyst K86.2 ; Other iron deficiency anemia D50.8 ; Pulmonary emphysema, unspecified emphysema type J43.9 ; Coarse tremors G25.2 and Claustrophobia F40.240 [place] [address] 17403- 2747 Apr, Anxiety F41.9 [facility] [address] 34623- 2651 Mar, [place] [address] 44635- 5891 Mar, Anxiety F41.9 [facility] [address] 62975- 7273 Feb, Anxiety F41.9 [facility] [address] 34655- 3473 Jan, [facility] [address] [place] [id number] [place] [address] 02643- 7976 Jan, [facility] [address] [place] [id number] [place] [address] 38348- 9814 Jan, Anxiety F41.9 [place] [address] 28735- 4651 Jan, Pulmonary emphysema, unspecified emphysema type J43.9 ; Encounter for immunization Z23 ; Other iron deficiency anemia D50.8 ; Anxiety F41.9 ; Diarrhea, unspecified type R19.7 and Memory loss R41.3 [place] [address] 54807- 5885 Dec, Anxiety F41.[address] 49681- 4646 Dec, Irritable bowel syndrome with diarrhea K58.0 [place] [address] [place] [id number] [place] [address] 67712- 2645 05 Dec, 2016 Diarrhea, unspecified type R19.7 [place] [address] 10680- 6744 30 Nov, 2016 Acute non-recurrent maxillary sinusitis J01.00 ; Pulmonary emphysema, unspecified emphysema type J43.9 ; Diarrhea, unspecified type R19.7 and Other iron deficiency anemia D50.8 [place] [address] [place] [id number] [place] [address] 15000- 5930 Nov, [facility] [address] [place] [id number] [place] [address] 95944 -6169 Nov, Sore throat J02.9 and Strep pharyngitis J02.0 [place] [address] [place] [id number] [place] [address] 44743- 2780 Nov, Other iron deficiency anemia D50.8 [facility] [address] [place] [id number] [place] [address] 95956- 6563 14 Nov, 2016 Anxiety F41.9 and Low hemoglobin D64.9 [facility] [address] [place] [id number] [place] [address] 77502- 0684 14 Oct, 2016 Anxiety F41.9 [facility] [address] [place] [id number] [place] [address] 81879- 6800 16 Sep, 2016 Anxiety F41.9 [place] [address] 99796- 2916 13 Sep, 2016 Left upper quadrant pain R10.12 [place] [address] 56982- 0574 07 Sep, 2016 Other iron deficiency anemia D50.8 and Left upper quadrant pain R10.12 [place] [address] 26179- 5651 August, Anxiety F41.9 [place] [address] 13851- 5852 August, Other iron deficiency anemia D50.8 and Left upper quadrant pain R10.12 [place] [address] [place] [id number] [place] [address] 59039- 3887 Jul, Other iron deficiency anemia D50.8 ; Acute gastric ulcer with hemorrhage K25.0 and Anxiety F41.9 [place] [address] [place] [id number] [place] [address] 32784- 6235 Jul, Other iron deficiency anemia D50.8 ; Other fatigue R53.83 ; Nicotine abuse Z72.0 ; Anxiety F41.9 and Pulmonary emphysema, unspecified emphysema type J43.9 [place] [address] [place] [id number] [place] [address] 20382- 2396 Jun, Other iron deficiency anemia D50.8 and Hematochezia K92.1 [place] [address] [place] [id number] [place] [address] 39916- 6068 Jun, Other fatigue R53.83 and Other iron deficiency anemia D50.8 [place] [address] 62162- 8167 Jun, Other fatigue R53.83 [place] [address] 60173- 8166 Jun, Other iron deficiency anemia D50.8 ; Nicotine abuse Z72.0 ; Anxiety F41.9 and Pulmonary emphysema, unspecified emphysema type J43.9 [place] [address] 01491- 6473 Jun, Low hemoglobin D64.9 [place] [address] 38022- 5940 16 Jun, 2016 Low hemoglobin D64.9 [place] [address] 17524- 6192 Jun, Anxiety F41.9 ; Nicotine abuse Z72.0 and Reactive depression F32.9 [place] [address] 07933- 2529 Jun, Anxiety F41.9 [place] [address] 19599- 8225 May, Anxiety F41.9 ; Nicotine abuse Z72.0 and Reactive depression F32.9 [place] [address] 14746- 0840 May, Anxiety F41.9 [facility] [address] [place] [id number] [place] [address] 07064- 9493 May, Anxiety F41.9 ; Nicotine abuse Z72.0 and Reactive depression F32.9 [place] [address] [place] [id number] [place] [address] 35832- 0947 May, [place] [address] 70629- 5850 May, [place] [address] 02808- 6579 May, Anxiety F41.9 [facility] [address] [place] [id number] [place] [address] 15548- 0744 May, Other emphysema J43.8 ; Cramping of hands R25.2 ; Irritable bowel syndrome with diarrhea K58.0 ; Breast cancer screening Z12.39 ; Candidal stomatitis B37.0 and Candidal esophagitis B37.81 [facility] [address] 38462- 3520 Apr, Anxiety F41.9 [facility] [address] [place] [id number] [place] [address] 70943- 2704 Mar, Anxiety F41.9 [facility] [address] 54205- 4937 Feb, Anxiety F41.9 [facility] [address] [place] [id number] [place] [address] 04159- 7044 Jan, Anxiety F41.9 [facility] [address] [place] [id number] [place] [address] 21470- 7773 Jan, Anxiety F41.9 [facility] [address] 29700- 9815 Jan, Anxiety F41.9 [facility] [address] [place] [id number] [place] [address] 17583- 6596 Jan, Anxiety F41.9 ; Nicotine abuse Z72.0 ; Pulmonary emphysema, unspecified emphysema type J43.9 ; Memory loss R41.3 and Abdominal pain, unspecified location R10.9 [facility] [address] [place] [id number] [place] [address] 58022- 8738 Jan, [facility] [address] [place] [id number] [place] [address] 52111- 4549 21 Dec, 2015 Anxiety F41.9 [facility] [address] [place] [id number] [place] [address] 67288 -7530 13 Dec, 2015 Right arm pain M79.601 [facility] [address], [place] [address]- 5928 Nov, Anxiety F41.9 [facility] [address] [place] [address]- 0216 Oct, Anxiety F41.9 [facility] [address] [place] [address]- 4526 Oct, [facility] [address] [place] [id number] [place] [address] 95865- 8155 Sep, Anxiety F41.9 [facility] [address] [place] [address] 08711- 8018 Sep, Left lower quadrant pain R10.32 ; Memory loss R41.3 and Basal cell carcinoma of skin, unspecified C44.91 [facility] [address] [place] [address] 11056- 7116 Sep, Anxiety F41.9 [facility] [address], [place] [address]- 7196 August, Anxiety F41.9 [facility] [address] [place] [address] 36606- 1705 August, Left lower quadrant pain R10.32 ; Memory loss R41.3 ; Pulmonary emphysema, unspecified emphysema type J43.9 and Depression, unspecified depression type F32.9 [facility] [address], [place] [address]- 2176 August, [facility] [address] 7256 Jul, [facility] [address] [address]- 3826 Jun, [facility] [address], [place] [address]- 6766 May, [facility] [address], [place] [address]- 8704 Apr, [facility] [address] [place] [address] 42555- 1709 Apr, Chronic obstructive pulmonary disease with acute exacerbation J44.1 ; Anxiety F41.9 and Nicotine abuse Z72.0 [facility] [address] [place] [id number] [place] [address] 45322- 8594 Apr, [facility] [address] 27875- 6938 Mar, Anxiety disorder, unspecified F41.9 [facility] [address] [place] [id number] [place] [address] 55809- 4890 Mar, [place] [address] [place] [id number] [place] [address] 83549- 8295 Feb, [facility] [address] [place] [id number] [place] [address] 79930- 9542 Nov, [facility] [address] [place] [id number] [place] [address] 09543- 0868 Nov, [facility] [address] [place] [id number] [place] [address] 80847- 0331 Nov, Basal cell carcinoma 173.91 and Astigmatism with presbyopia 367.20 [place] [address] [place] [id number] [place] [address] 20512- 9863 Oct, [facility] [address] [place] [id number] [place] [address] 89157- 3833 Oct, Lipoma 214.9 [facility] [address] [place] [id number] [place] [address] 90582- 3598 Sep, Ganglion cyst 727.43 ; Chronic airway obstruction, not elsewhere classified 496 ; Hypertension 401.9 ; CAD (coronary artery disease) 414.00 and Dysthymia 300.4 [facility] [address] [place] [id number] [place] [address] 24206- 5601 Jul, [facility] [address] 91208- 7218 Jul, [facility] [place] [facility] [address] [id number] [place] [address]- 6426 Jun, [facility] [place] [facility] [address] [id number] [place] 3129 Jun, [facility] [place] [facility] [address] [facility] [id number] [place] [address]- 2895 Jun, [facility] [place] [facility] [address] [id number] [place] [address]- 2662 Jun, [facility] [place] [facility] [address] [id number] [place] [address]- 3316 May, [facility] [place] [facility] [address] [facility] [id number] [place] [address]- 0892 May, [facility] [place] [facility] [address] [facility] [id number] [place] [address]- 7704 Mar, [facility] [place] [facility] [address] [id number] [place] [address]- 1983 Mar, [facility] [place] [facility] [address] [facility] [id number] [place] [address]- 4941 Mar, [facility] [place] [facility] [address] [facility] [id number] [place] [address]- 0953 Mar, [facility] [place] [facility] [address] [id number] [place] [address]- 7931 Feb, [facility] [place] [facility] [address] [id number] [address]- 9722 Feb, [facility] [place] [facility] [address] [id number] [place] [address]- 0186 Feb, [facility] [place] [facility] [address] [facility] [id number] [place] [address]- 6734 Feb, [facility] [place] [facility] [address] [facility] [id number] [place] [address]- 2706 Feb, [facility] [place] [facility] [address] [id number] [place] [address]- 4713 Feb, [facility] [place] [facility] [address] [id number] [place] [address]- 2678 Feb, [facility] [place] [facility] [address] [id number] [place] [address]- 1146 Feb, [facility] [place] [facility] [address] [id number] [place] [address]- 5566 Feb, [facility] [place] [facility] [address] [id number] [place] [address]- 2797 Feb, [facility] [place] [facility] [address] [id number] [place] [address]- 1740 Dec, [facility] [place] [facility] [address] [id number] [place] [address]- 9474 Dec, [facility] [place] [facility] [address] [id number] [place] [address]- 7092 Nov, [facility] [place] [facility] [address] [id number] [place] [address]- 2657 Oct, [facility] [place] [facility] [address] [id number] [place] [address]- 9684 Oct, [facility] [place] [facility] [address] [id number] [place] [address]- 2127 August, [facility] [place] [facility] [address] [id number] [place] [address]- 2969 August, [facility] [place] [facility] [address] [id number] [place] [address]- 1921 August, [facility] [place] [facility] [address] [id number] [place] [address]- 4292 August, [facility] [place] [facility] [address] [id number] [place] [address]- 7266 Jul, [facility] [place] [facility] [address] [id number] [place] [address]- 1619 Jul, [facility] [place] [facility] [address] [id number] [place] [address]- 7327 Jun, [facility] [place] [facility] [address] [id number] [place] [address]- 0101 Jun, [facility] [place] [facility] [address] [id number] [place] [address]- 1118 Jun, [facility] [place] [facility] [address] [id number] [place] [address]- 1510 Jun, [facility] [place] [facility] [address] [id number] [place] [address]- 4541 Jun, [facility] [place] [facility] [address] [id number] [place] [address]- 7442 Jun, [facility] [place] [facility] [address] [id number] [place] [address]- 8676 Jun, [facility] [place] [facility] [address] [id number] [place] [address]- 9988 Jun, [facility] [place] [facility] [address] [id number] [place] [address]- 6421 Jun, [facility] [place] [facility] [address] [id number] [place] [address]- 9364 Jun, [facility] [place] [facility] [address] [id number] [place] [address] Jun, [facility] [place] [facility] [address] [id number] [place] [address] Jun, [facility] [place] [facility] [address] [id number] [place] [address] Jun, [facility] [place] [facility] [address] [id number] [place] [address] Jun, [facility] [place] [facility] [address] [id number] [place] [address] Jun, [facility] [place] [facility] [address] [id number] [place] [address] 04 Jun, 2013 [facility] [place] [facility] [address] [id number] [place] [address] 04 Jun, 2013 [facility] [place] [facility] [address] [id number] [place] [address] Jun, [facility] [place] [facility] [address] [id number] [place] [address] Jun, [facility] [place] [facility] [address] [id number] [place] [address] May, [facility] [place] [facility] [address] [id number] [place] [address] 1988 May, [facility] [place] [facility] [address] [id number] [place] [address] May, [facility] [place] [facility] [address] [id number] [place] [address] May, [facility] [place] [facility] [address] [id number] [place] [address] Apr, [facility] [place] [facility] [address] [id number] [place] [address] Apr, [facility] [place] [place] [facility] [address] [facility] [id number] [place] [address] Mar, [facility] [place] [facility] [address] [id number] [place] [address] Mar, [facility] [place] [facility] [address] [id number] [place] [address] Mar, [facility] [place] [facility] [address] [id number] [place] [address] Mar, [facility] [place] [facility] [address] [id number] [place] [address] Mar, [facility] [place] [facility] [address] [facility] [id number] [place] [address] Mar, [facility] [place] [facility] [address] [id number] [place] [address] Mar, [facility] [place] [facility] [address] [id number] [place] [address] Mar, [facility] [place] [facility] [address] [id number] [place] [address] Mar, [facility] [place] [facility] [address] [id number] [place] [address] Mar, [facility] [place] [facility] [address] [id number] [place] [address] Mar, [facility] [place] [facility] [address] [id number] [place] [address] Feb, [facility] [place] [facility] [address] [id number] [place] [address] Feb, [facility] [place] [facility] [address] [id number] [place] [address] Jan, [facility] [place] [facility] [address] [id number] [place] [address] Jan, [facility] [place] [facility] [address] [id number], [place] [address] Jan, [facility] [place] [facility] [address] [id number] [place] [address] Nov, [facility] [place] [facility] [address] [id number], [place] [address] Oct, [facility] [place] [facility] [address] [id number] [place] [address] Oct, [facility] [place] [facility] [address] [id number] [place] [address] Oct, [facility] [place] [facility] [address] [id number], [place] [address] Oct, [facility] [place] [facility] [address] [id number], [place] [address] Oct[facility] [address] [id number] [place] [address] Oct, [facility] [address] [id number] [place] [address] Oct, [facility] [address] [id number] [place] [address] Oct, [facility] [address] [id number] [place] [address] Sep, [facility] [address] [id number] [place] [address] Sep, [facility] [address] [id number] [place] [address] Sep, [facility] [address] [id number] [place] [address] Sep, [facility] [address] [id number] [place] [address] August, [facility] [address] [id number] [place] [address] August, [facility] [address] [id number] [place] [address] August, [facility] [address] [id number] [place] [address] August, [facility] [address] [id number] [place] [address] August, [facility] [address] [id number] [place] [address] August, [facility] [address] [id number] [place] [address] Jul, [facility] [address] [id number] [place] [address] May, [facility] [address] [id number] [place] [address] Apr, [facility] [place] [facility] [address] [id number] [place] [address] Apr, [facility] [place] [facility] [address] [id number] [place] [address] Apr, [facility] [place] [facility] [address] [id number] [place] [address] Mar, [facility] [place] [facility] [address] [id number] [place] [address] Mar, [facility] [place] [facility] [address] [id number] [place] [address] Mar, [facility] [place] [facility] [address] [id number] [place] [address] Mar, [facility] [place] [facility] [address] [id number] [place] [address] Jan, [facility] [address] [id number] [place] [address] Nov, [facility] [place] [facility] [address] [id number] [place] [address] Sep, [facility] [place] [facility] [address] [id number] [place] [address] August, [facility] [place] [facility] [address] [id number] [place] [address] August, [facility] [place] [facility] [address] [id number] [place] [address] Jul, [facility] [place] [facility] [address] [id number] [place] [address] Jul, [facility] [place] [facility] [address] [id number] [place] [address] Jul, [facility] [place] [facility] [address] [id number] [place] [address] Jul, [facility] [address] [id number] [address] Jul, [facility] [id number] [address] Jun, [facility] [id number] [address] Apr, [facility] [id number] [address] Feb, [facility] [id number], [place] [address] Nov, [facility] [id number], [place] [address] Oct, [facility] [id number], [place] [address] Feb, [facility] [id number] [address] August, [facility] [id number], [place] [address] Jul, [facility] [address] [id number], [place] [address] Jun, IMMUNIZATIONS No Known Immunizations SOCIAL HISTORY Never Assessed REASON FOR VISIT [facility] 09/08/17 COPD Exacerbation PLAN OF CARE Activity Details Follow Up 3 Months Reason:COPD VITAL SIGNS Height 63 in 2017-09-18 Weight 135.3 lbs 2017-09-18 Temperature 98.4 degrees Fahrenheit 2017-09-18 Heart Rate 80 bpm 2017-09-18 Respiratory Rate 22 2017-09-18 Oximetry w/ oxygen @ 2L:98 % 2017-09-18 BMI 23.96 kg/m2 2017-09-18 Blood pressure systolic 116 mmHg 2017-09-18 Blood pressure diastolic 72 mmHg 2017-09-18 MEDICATIONS Medication Instructions Dosage Frequency Start Date End Date Duration Status Montelukast Sodium 10 mg Orally Once a day at bedtime 1 tablet in the evening Active Amoxicillin 500 mg Orally 3 times a day 1 tablet 8h Sep, Sep, 10 day(s) Active Albuterol Sulfate 1.25 mg/3 mL inhale 3 milliliters via nebulizer by Inhalation route 4 times per day PRN as needed Dec, Active Singulair 10 MG Orally Once a day 1 tablet in the evening 24h Not- Taking Ferrous Sulfate 325 (65 Fe) MG Orally Once a day 2 tablets 24h Jun, Active PredniSONE 10 MG Orally Once a day 24h Active Metoprolol Tartrate 25 mg take 1 tablet (25 mg) by oral route 2 times per day Sep, Active Trelegy Ellipta Inhalation Once a day 1 puff 24h Active Folic Acid 0.8 mg Orally Once a day 1/2 tablet 24h Active Nitroglycerin 0.4 MG Active Magnesium 250 MG Orally twice a day 1 tablet with a meal 12h Active Ipratropium-Albuterol 0.5-2.5 (3) MG/3ML Inhalation Four times a day 3 ml 6h Active Cholestyramine 4 GM/DOSE Orally Twice a day 1 scoop 12h Sep, 30 day(s) Active Aspirin 81 mg take 1 tablet (81 mg) by oral route once daily Sep, Active Isosorbide Mononitrate ER 30 MG TAKE ONE TABLET BY MOUTH IN THE MORNING 90 Active Oxygen Active Plavix 75 mg take 1 tablet (75 mg) by oral route once daily Sep, Not-Taking PredniSONE 10 mg Orally Once a day- taper 1 tablet Active Vitamin C 500 MG Active Ativan 1 MG Orally 2 times a day 1 tablet as needed 12h Jun, 28 days Active Pristiq 100 MG TAKE ONE TABLET BY MOUTH DAILY 90 Active Cetirizine HCl 10 MG Orally Once a day 1 tablet 24h Active RESULTS No Results PROCEDURES Procedure Date Ordered Result Body Site [facility] VISIT ESTABLISHED PATIENT September 18, 2017 INSTRUCTIONS MEDICATIONS ADMINISTERED No Known Medications [...]
--- OUTSIDE RECORDS SUMMARY | 2017-12-30 00:31 | XMS REPORT ---
Author Author CASEY SIMPSON Organization [facility] Address [address] [place] [address] Care Team Providers Care Lead Java Programmer Name Role Phone CASEY SIMPSON Unavailable PROBLEMS Type Condition ICD9-CM Code JSS90-EF Code Onset Dates Condition Status SNOMED Code Problem Other emphysema J43.8 Active 45738657 Problem Other iron deficiency anemia D50.8 Active 01166352 Problem Reactive depression F32.9 Active 73793707 Problem Dysthymic disorder F34.1 Active 78972748 Problem Atherosclerotic heart disease of [place] coronary artery without angina pectoris I25.10 Active 222833401907529 Problem Coarse tremors G25.2 Active 00940250 Problem Claustrophobia F40.240 Active 21921422 Problem Chronic prescription benzodiazepine use Z79.899 Active 110907451 Problem Benign familial tremor G25.0 Active 601198907 Problem Mixed hyperlipidemia E78.2 Active 887972129 Problem CAD (coronary artery disease) 414.00 Active 24335567 Problem Supplemental oxygen dependent Z99.81 Active 330486563549 Problem Essential hypertension I10 Active 92906427 Problem Chronic obstructive pulmonary disease with acute exacerbation J44.1 Active 816180238 Problem Memory loss R41.3 Active 27745604 Problem Anxiety F41.9 Active 83145208 Problem Pulmonary emphysema, unspecified emphysema type J43.9 Active 76893870 Problem Nicotine abuse Z72.0 Active 96550550 Problem Irritable bowel syndrome with diarrhea K58.0 Active 902452483 ALLERGIES No Information ENCOUNTERS Encounter Location Date Diagnosis [facility] [address], [place] [address] Jan, [facility] [address], [place] [address] Nov, Atherosclerotic heart disease of [place] coronary artery without angina pectoris I25.10 [facility] [address] [place] [id number] [place] [address] 78120- 2739 Nov, Pulmonary emphysema, unspecified emphysema type J43.9 ; Therapeutic drug monitoring Z51.81 ; Anxiety F41.9 ; Atherosclerotic heart disease of [place] coronary artery without angina pectoris I25.10 ; Dysthymic disorder F34.1 ; Encounter for screening mammogram for breast cancer Z12.31 and Encounter for immunization Z23 [place] [address] [address]- 4111 Nov, Anxiety F41.9 [place] [address] 43909- 6249 Oct, [place] [address] 74997- 9932 Oct, [place] [address] 7[address]86- 2732 Oct, Anxiety F41.9 [place] [address] 43693- 9423 Sep, [place] [address] 79174- 1879 Sep, [place] [address] 61196- 9747 Sep, Anxiety F41.9 [place] [address] [place] [id number] [place] [address] 51208- 6575 Sep, Pulmonary emphysema, unspecified emphysema type J43.9 ; Other iron deficiency anemia D50.8 ; Pain of toe of left foot M79.675 and Pain in right toe(s) M79.674 [place] [address] 30430- 7235 05 Sep, 2017 Mouth pain K13.79 [place] [address] 07891- 1963 04 Sep, 2017 Pain, dental K08.89 [place] [address] 08204- 9983 Sep, [facility] [address] 73915- 8519 Sep, Pulmonary emphysema, unspecified emphysema type J43.9 ; Nicotine abuse Z72.0 ; Diarrhea, unspecified type R19.7 ; Mouth pain K13.79 and Vision changes H53.9 [facility] [address] 63516- 4814 Sep, [facility] [address] 74749- 9323 August, Anxiety F41.9 [place] [address] 37019- 4658 Jul, Anxiety F41.9 [place] [address] 08691- 1896 Jun, Pulmonary emphysema, unspecified emphysema type J43.9 and Anxiety F41.9 [place] [address] 55811- 1127 Jun, Anxiety F41.9 [facility] [address] 95329- 0362 Jun, [facility] [address] [place] [id number] [place] [address] 11008- 8938 Jun, [facility] [address] [id number] [place] [address] 65440- 1025 Jun, [facility] [id number] [place] [address] 61491 -7481 Jun, Dysuria R30.0 and Acute cystitis with hematuria N30.01 [facility] [address] [place] [id number] [place] [address] 15191- 6039 May, Anxiety F41.9 and Chronic prescription benzodiazepine use Z79.899 [facility] [address] 96413- 6622 May, Anxiety F41.9 and Chronic prescription benzodiazepine use Z79.899 [facility] [address] 04407- 2171 May, Benign familial tremor G25.0 [facility] [address] 86969- 2253 Apr, Other iron deficiency anemia D50.8 [facility] [address] 64294- 7930 Apr, Anxiety F41.9 [facility] [address] 65507- 8718 Apr, [facility] [address] 76890- 9329 Apr, Pancreatic cyst K86.2 ; Other iron deficiency anemia D50.8 ; Pulmonary emphysema, unspecified emphysema type J43.9 ; Coarse tremors G25.2 and Claustrophobia F40.240 [facility] [address] 71523- 6013 Apr, Anxiety F41.9 [place] [address] 80513- 2757 Mar, [facility] [address] 11674- 5340 Mar, Anxiety F41.9 [facility] [address] 83441- 1395 Feb, Anxiety F41.9 [facility] [address] [place] [id number] [place] [address] 65213- 3942 Jan, [facility] [address] 69196- 4937 Jan, [facility] [address] 36092- 4760 Jan, Anxiety F41.9 [facility] [address] [place] [id number] [place] [address] 17244- 4388 Jan, Pulmonary emphysema, unspecified emphysema type J43.9 ; Encounter for immunization Z23 ; Other iron deficiency anemia D50.8 ; Anxiety F41.9 ; Diarrhea, unspecified type R19.7 and Memory loss R41.3 [place] [address] 81627- 2082 Dec, Anxiety F41.9 [place] [address] 77890- 1390 07 Dec, 2016 Irritable bowel syndrome with diarrhea K58.0 [place] [address] 197713- 0507 05 Dec, 2016 Diarrhea, unspecified type R19.7 [place] [address] 99403- 4467 Nov, Acute non-recurrent maxillary sinusitis J01.00 ; Pulmonary emphysema, unspecified emphysema type J43.9 ; Diarrhea, unspecified type R19.7 and Other iron deficiency anemia D50.8 [place] [address] 68387- 4548 Nov, [facility] [address] [place] [id number] [place] [address] 77227 -8404 Nov, Sore throat J02.9 and Strep pharyngitis J02.0 [place] [address] [place] [id number] [place] [address] 84735- 4522 Nov, Other iron deficiency anemia D50.8 [place] [address] [place] [id number] [place] [address] 00264- 6699 Nov, Anxiety F41.9 and Low hemoglobin D64.9 [place] [address] [place] [id number] [place] [address] 57712- 5536 Oct, Anxiety F41.9 [place] [address] 69336- 9995 Sep, Anxiety F41.9 [place] [id number] [place] [address] 14636- 2214 13 Sep, 2016 Left upper quadrant pain R10.12 [place] [address] [place] [id number] [place] [address] 33651- 4716 07 Sep, 2016 Other iron deficiency anemia D50.8 and Left upper quadrant pain R10.12 [place] [address] [place] [id number] [place] [address] 91398- 6830 17 Aug, 2016 Anxiety F41.9 [place] [address] [place] [id number] [place] [address] 10522- 0240 10 Aug, 2016 Other iron deficiency anemia D50.8 and Left upper quadrant pain R10.12 [place] [address] [place] [id number] [place] [address] 64979- 6342 19 Jul, 2016 Other iron deficiency anemia D50.8 ; Acute gastric ulcer with hemorrhage K25.0 and Anxiety F41.9 [place] [address] [place] [id number] [place] [address] 13908- 2656 18 Jul, 2016 Other iron deficiency anemia D50.8 ; Other fatigue R53.83 ; Nicotine abuse Z72.0 ; Anxiety F41.9 and Pulmonary emphysema, unspecified emphysema type J43.9 [place] [address] [place] [id number] [place] [address] 73708- 8060 31 Jun, 2016 Other iron deficiency anemia D50.8 and Hematochezia K92.1 [place] [address] [place] [id number] [place] [address] 06839- 5017 Jun, Other fatigue R53.83 and Other iron deficiency anemia D50.8 [place] [address] [place] [id number] [place] [address] 88086- 9666 Jun, Other fatigue R53.83 [place] [address] [place] [id number] [place] [address] 72856- 8295 Jun, Other iron deficiency anemia D50.8 ; Nicotine abuse Z72.0 ; Anxiety F41.9 and Pulmonary emphysema, unspecified emphysema type J43.9 [place] [address] [place] [id number] [place] [address] 64326- 4653 17 Jun, 2016 Low hemoglobin D64.9 [place] [address] 63545- 6590 16 Jun, 2016 Low hemoglobin D64.9 [place] [address] 82397- 3012 14 Jun, 2016 Anxiety F41.9 ; Nicotine abuse Z72.0 and Reactive depression F32.9 [place] [address] 47270- 7273 Jun, Anxiety F41.9 [place] [address] 91125- 5172 May, Anxiety F41.9 ; Nicotine abuse Z72.0 and Reactive depression F32.9 [place] [address] 75428- 7873 May, Anxiety F41.9 [place] [address] [place] [id number] [place] [address] 18006- 2819 May, Anxiety F41.9 ; Nicotine abuse Z72.0 and Reactive depression F32.9 [place] [address] 35864- 1444 May, [place] [address] [place] [id number] [place] [address] 98560- 2997 May, [place] [address] [place] [id number] [place] [address] 21176- 4818 May, Anxiety F41.9 [place] [address] [place] [id number] [place] [address] May, Other emphysema J43.8 ; Cramping of hands R25.2 ; Irritable bowel syndrome with diarrhea K58.0 ; Breast cancer screening Z12.39 ; Candidal stomatitis B37.0 and Candidal esophagitis B37.81 [facility] [address] [place] [id number] [place] [address] 84413- 4069 10 Apr, 2016 Anxiety F41.9 [facility] [address] [place] [id number] [place] [address] 03609- 0257 Mar, Anxiety F41.9 [facility] [address] [place] [id number] [place] [address] 46967- 3445 Feb, Anxiety F41.9 [facility] [address] [place] [id number] [place] [address] 95700- 6910 Jan, Anxiety F41.9 [facility] [address] 91682- 7488 Jan, Anxiety F41.9 [facility] [address] 04371- 3568 Jan, Anxiety F41.9 [facility] [address] 38918- 5435 Jan, Anxiety F41.9 ; Nicotine abuse Z72.0 ; Pulmonary emphysema, unspecified emphysema type J43.9 ; Memory loss R41.3 and Abdominal pain, unspecified location R10.9 [facility] [address] [place] [id number] [place] [address] 15049- 0381 Jan, [facility] [address] [place] [id number] [place] [address] 28591- 5611 Dec, Anxiety F41.9 [facility] [address] [place] [id number] [place] [address] 94977 -2998 Dec, Right arm pain M79.601 [facility] [address] [place] [id number] [place] [address] 49776- 4452 Nov, Anxiety F41.9 [facility] [address] [place] [id number] [place] [address] 86245- 8127 Oct, Anxiety F41.9 [facility] [address] [place] [address]- 4425 Oct, [facility] [address] [place] [id number] [place] [address] 14306- 6882 Sep, Anxiety F41.9 [facility] [address] [place] [id number] [place] [address] 33511- 1817 Sep, Left lower quadrant pain R10.32 ; Memory loss R41.3 and Basal cell carcinoma of skin, unspecified C44.91 [facility] [address] [place] [id number] [place] [address] 64935- 7354 Sep, Anxiety F41.9 [facility] [address] [place] [id number] [place] [address] 10824- 5818 August, Anxiety F41.9 [facility] [address] [place] [id number] [place] [address] 52725- 2440 August, Left lower quadrant pain R10.32 ; Memory loss R41.3 ; Pulmonary emphysema, unspecified emphysema type J43.9 and Depression, unspecified depression type F32.9 [facility] [address] [place] [address] 29479- 3110 August, [facility] [address] [place] [id number] [place] [address] 96935- 5493 Jul, [facility] [id number] [place] [address] 52840- 1984 Jun, [facility] [address] [place] [id number] [place] [address] 51913- 5473 May, [facility] [address] [place] [address] 00260- 9787 Apr, [facility] [address] [place] [id number] [place] [address] 72138- 2194 Apr, Chronic obstructive pulmonary disease with acute exacerbation J44.1 ; Anxiety F41.9 and Nicotine abuse Z72.0 [facility] [address] [place] [id number] [place] [address] 24285- 6876 Apr, [facility] [address], [place] [address]- 9974 Mar, Anxiety disorder, unspecified F41.9 [facility] [address] [place] [id number] [place] [address] 73111- 3406 Mar, [facility] [address] [place] [id number] [place] [address] 116649- 0859 Feb, [facility] [address] [place] [id number] [place] [address] 485123- 2230 Nov, [facility] [address] [place] [id number] [place] [address] 668246- 6849 Nov, [facility] [address] [place] [id number] [place] [address] 09451- 9635 Nov, Basal cell carcinoma 173.91 and Astigmatism with presbyopia 367.20 [facility] [address] [place] [id number] [place] [address] 62288- 8893 Oct, [facility] [address] [place] [id number] [place] [address] 49828- 9241 Oct, Lipoma 214.9 [facility] [address] [place] [id number] [place] [address] 70283- 6088 Sep, Ganglion cyst 727.43 ; Chronic airway obstruction, not elsewhere classified 496 ; Hypertension 401.9 ; CAD (coronary artery disease) 414.00 and Dysthymia 300.4 [facility] [id number] [address]- 5553 Jul, [facility] [address] [place] [id number] [place] [address] 558786- 2196 Jul, [facility] [address] [place] [id number] [place] [address] 042508- 0423 Jun, [facility] [address], [place] [address]- 4315 Jun, [facility] [address] [place] [address]- 1402 Jun, [facility] [place] [facility] [address] [id number] [place] [address]- 8055 Jun, [facility] [place] [facility] [address] [id number] [place] [address]- 5280 12 May, 2014 [facility] [place] [facility] [address] [id number] [place] [address]- 6543 May, [facility] [place] [facility] [address] [id number] [place] [address]- 8236 Mar, [facility] [place] [facility] [address] [id number] [place] [address]- 1145 Mar, [facility] [place] [facility] [address] [id number] [place] [address]- 8674 Mar, [facility] [place] [facility] [address] [id number] [place] [address]- 6357 Mar, [facility] [place] [facility] [address] [id number] [place] [address]- 2587 Feb, [facility] [place] [facility] [address] [id number] [place] [address]- 3311 Feb, [facility] [place] [facility] [address] [id number] [place] [address]- 5001 Feb, [facility] [place] [facility] [address] [id number] [place] [address]- 3387 Feb, [facility] [place] [facility] [address] [id number] [place] [address]- 9768 Feb, [facility] [place] [facility] [address] [id number] [place] [address]- 0658 Feb, [facility] [place] [facility] [address] [id number] [place] [address]- 2552 Feb, [facility] [place] [facility] [address] [id number] [place] [address]- 6111 Feb, [facility] [place] [facility] [address] [id number] [place] [address]- 4793 Feb, [facility] [place] [facility] [address] [id number] [place] [address]- 5260 Feb, [facility] [place] [facility] [address] [id number] [place] [address]- 2496 Dec, [facility] [place] [facility] [address] [id number] [place] [address]- 1474 Dec, [facility] [place] [facility] [address] [id number] [place] [address]- 2002 Nov, [facility] [place] [facility] [address] [id number] [place] [address]- 8810 Oct, [facility] [place] [facility] [address] [id number] [place] [address]- 8606 Oct, [facility] [place] [facility] [address] [id number] [place] [address]- 7010 August, [facility] [place] [facility] [address] [id number] [place] [address]- 1970 August, [facility] [place] [facility] [address] [id number] [place] [address]- 1494 August, [facility] [place] [facility] [address] [id number] [place] [address]- 7017 August, [facility] [place] [facility] [address] [id number] [place] [address]- 1581 Jul, [facility] [place] [facility] [address] [id number] [place] [address]- 6197 Jul, [facility] [place] [facility] [address] [id number] [place] [address]- 2952 Jun, [facility] [place] [facility] [address] [id number] [place] 0396 Jun, [facility] [place] [facility] [address] [id number] [place] [address]- 2259 25 Jun, 2013 [facility] [place] [facility] [address] [id number] [place] [address]- 8107 18 Jun, 2013 [facility] [place] [facility] [address] [id number] [place] [address]- 8179 18 Jun, 2013 [facility] [place] [facility] [address] [id number] [place] [address]- 0322 Jun, [facility] [place] [facility] [address] [id number] [place] [address]- 3656 Jun, [facility] [place] [facility] [address] [id number] [place] [address]- 4701 Jun, [facility] [place] [facility] [address] [id number] [place] [address]- 0195 Jun, [facility] [place] [facility] [address] [id number] [place] [address]- 1683 10 Jun, 2013 [facility] [place] [facility] [address] [id number] [place] [address]- 8386 Jun, [facility] [place] [facility] [address] [id number] [place] [address]- 4552 Jun, [facility] [place] [facility] [address] [id number] [place] [address]- 6118 Jun, [facility] [place] [facility] [address] [id number] [place] [address]- 9501 Jun, [facility] [place] [facility] [address] [id number] [place] [address]- 8873 Jun, [facility] [place] [facility] [address] [id number] [place] [address]- 6812 Jun, [facility] [place] [facility] [address] [id number] [place] [address]- 1752 Jun, [facility] [place] [facility] [address] [id number] [place] [address]- 9493 Jun, [facility] [place] [facility] [address] [id number] [place] [address]- 1493 Jun, [facility] [place] [facility] [address] [id number] [place] [address]- 3976 May, [facility] [place] [facility] [address] [id number] [place] 7981 May, [facility] [place] [facility] [address] [id number] [place] [address]- 9479 May, [facility] [place] [facility] [address] [id number] [place] [address]- 3586 May, [facility] [place] [facility] [address] [id number] [place] [address]- 5277 Apr, [facility] [place] [facility] [address] [id number] [place] [address]- 6272 Apr, [facility] [place] [facility] [address] [id number] [place] [address]- 6500 Mar, [facility] [place] [facility] [address] [id number] [place] [address]- 9226 Mar, [facility] [place] [facility] [address] [id number] [place] [address] Mar, [facility] [place] [facility] [address] [id number] [place] [address] Mar, [facility] [place] [facility] [address] [id number] [place] [address] Mar, [facility] [place] [facility] [address] [id number] [place] [address] Mar, [facility] [place] [facility] [address] [id number] [place] [address] Mar, [facility] [place] [facility] [address] [id number] [place] [address] Mar, [facility] [place] [facility] [address] [id number] [place] [address] Mar, [facility] [place] [facility] [address] [id number] [place] [address] Mar, [facility] [place] [facility] [address] [id number] [place] [address] Mar, [facility] [place] [facility] [address] [id number] [place] [address] Feb, [facility] [place] [facility] [address] [id number] [place] [address] Feb, [facility] [place] [facility] [address] [id number] [place] [address] Jan, [facility] [place] [facility] [address] [id number] [place] [address] Jan, [facility] [place] [facility] [address] [id number] [place] [address] Jan, [facility] [place] [facility] [address] [id number] [place] [address] Nov, [facility] [place] [facility] [address] [id number] [place] [address] Oct, [facility] [place] [facility] [address] [id number] [place] [address]842 Oct, [facility] [place] [facility] [address] [id number] [place] [address] Oct, [facility] [place] [facility] [address] [id number] [place] [address] 16 Oct, 2012 [facility] [place] [facility] [address] [id number] [place] [address] Oct, [facility] [place] [facility] [address] [id number] [place] [address] Oct, [facility] [place] [facility] [address] [id number] [place] [address] Oct, [facility] [place] [facility] [address] [id number] [place] [address] Oct, [facility] [address] [id number] [place] [address] Sep, [facility] [place] [facility] [address] [id number] [place] [address] Sep, [facility] [address] [id number] [place] [address] Sep, [facility] [address] [id number] [place] [address] Sep, [facility] [address] [id number] [place] [address] August, [facility] [address] [id number] [place] [address] August, [facility] [address] [id number] [place] [address] August, [facility] [address] [id number] [place] [address] August, [facility] [address] [id number] [place] [address] August, [facility] [address] [id number] [place] [address]26 August, [facility] [place] [facility] [address] [id number] [place] [address] Jul, [facility] [place] [facility] [address] [id number] [place] [address] May, [facility] [place] [facility] [address] [id number] [place] [address] Apr, [facility] [place] [facility] [address] [id number] [place] [address] Apr, [facility] [place] [facility] [address] [id number] [place] [address] Apr, [facility] [place] [facility] [address] [address] [id number] [place] [address] Mar, [facility] [place] [facility] [address] [id number] [place] [address] Mar, [facility] [place] [facility] [address] [id number] [place] [address] Mar, [facility] [place] [facility] [address] [id number] [place] [address] Mar, [facility] [place] [facility] [address] [id number] [place] [address] Jan, [facility] [place] [facility] [address] [id number] [place] [address] Nov, [facility] [place] [facility] [address] [id number] [place] [address] Sep, [facility] [place] [facility] [address] [id number] [place] [address] August, [facility] [place] [facility] [address] [id number] [place] [address] August, [facility] [place] [facility] [address] [id number] [place] [address] Jul, [facility] [place] [facility] [address] [id number], [place] [address] Jul, [facility] [place] [facility] [address] [id number], [place] [address] Jul, [facility] [place] [facility] [address] [id number] [place] [address] Jul, [facility] [place] [facility] [address] [id number], [place] [address] Jul, [facility] [place] [facility] [address] [id number] [place] [address] Jun, [facility] [place] [facility] [address] [id number], [place] [address] Apr, [facility] [address] [id number], [place] [address] Feb, [facility] [address] [id number], [place] [address] Nov, [facility] [id number], [place] [address] Oct, [facility] [id number], [place] [address] Feb, [facility] [id number], [place] [address] August, [facility] [id number], [place] [address] Jul, [facility] [id number], [place] [address] Jun, IMMUNIZATIONS No Known Immunizations SOCIAL HISTORY Never Assessed REASON FOR VISIT Controlled Med Refill 10/04/17 PLAN OF CARE VITAL SIGNS MEDICATIONS Medication [...]
--- OUTSIDE RECORDS SUMMARY | 2017-12-30 00:32 | XMS REPORT ---
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 Active 680379903804910 Problem Coarse tremors G25.2 Active 43769022 Problem Claustrophobia F40.240 Active 15468462 Problem Chronic prescription benzodiazepine use Z79.899 Active 053345175 Problem Benign familial tremor G25.0 Active 197187741 Problem Mixed hyperlipidemia E78.2 Active 095341062 Problem CAD (coronary artery disease) 414.00 Active 68578363 Problem Supplemental oxygen dependent Z99.81 Active 742068273964 Problem Essential hypertension I10 Active 91896601 Problem Chronic obstructive pulmonary disease with acute exacerbation J44.1 Active 587301466 Problem Memory loss R41.3 Active 39942044 Problem Anxiety F41.9 Active 55983364 Problem Pulmonary emphysema, unspecified emphysema type J43.9 Active 40061779 Problem Nicotine abuse Z72.0 Active 25638911 Problem Irritable bowel syndrome with diarrhea K58.0 Active 002998185 ALLERGIES Substance Reaction Event Type Date Status Ultram Unknown Drug Allergy Sep, Active Sulfamethoxazole-Trimethoprim Unknown Drug Allergy Sep, Active Penicillin V Potassium Unknown Drug Allergy Sep, Active Imitrex Unknown Drug Allergy Sep, Active Effexor Xr 75 Mg Capsule,extended Release 24hr Unknown Non Drug Allergy Sep, Active Lipitor 20 Mg Tablet muscle aches Non Drug Allergy Sep, Active ENCOUNTERS Encounter Location Date Diagnosis [facility] [id number] [address] Nov, [place] [id number] [place] [address] 96077- 6512 Nov, Atherosclerotic heart disease of saxman coronary artery without angina pectoris I25.10 [place] [id number] [place] [address] 93067- 4533 Nov, Pulmonary emphysema, unspecified emphysema type J43.9 ; Therapeutic drug monitoring Z51.81 ; Anxiety F41.9 ; Atherosclerotic heart disease of saxman coronary artery without angina pectoris I25.10 ; Dysthymic disorder F34.1 ; Encounter for screening mammogram for breast cancer Z12.31 and Encounter for immunization Z23 [place] [id number] [place] [address] 92946- 0447 Nov, Anxiety F41.9 [place] [id number] [place] [address] 44549- 7423 Oct, [place] [id number] [place] [address] 17157- 7664 Oct, [place] [id number] [place] [address] 65656- 7489 Oct, Anxiety F41.9 [place] [id number] [place] [address] 63442- 2088 Sep, [place] [id number] [place] [address] 54211- 2430 Sep, [place] [id number] [place] [address] 07651- 1959 14 Sep, 2017 Anxiety F41.9 [place] [id number] [place] [address] 91669- 6966 Sep, Pulmonary emphysema, unspecified emphysema type J43.9 ; Other iron deficiency anemia D50.8 ; Pain of toe of left foot M79.675 and Pain in right toe(s) M79.674 [place] [id number] [place] [address] 8784 Sep, Mouth pain K13.79 [facility] [address] 53498- 8276 Sep, Pain, dental K08.89 [facility] [address] 15375- 6342 Sep, [facility] [address] 80521- 9267 Sep, Pulmonary emphysema, unspecified emphysema type J43.9 ; Nicotine abuse Z72.0 ; Diarrhea, unspecified type R19.7 ; Mouth pain K13.79 and Vision changes H53.9 [place] [id number] [place] [address] 83027- 6325 Sep, [place] [address] 28954- 9132 August, Anxiety F41.9 [facility] [id number] [place] [address] 17411- 8930 Jul, Anxiety F41.9 [place] [address] 41727- 4763 Jun, Pulmonary emphysema, unspecified emphysema type J43.9 and Anxiety F41.9 [place] [id number] [place] [address] 26013- 0709 Jun, Anxiety F41.9 [facility] [address] 02560- 4900 Jun, [facility] [id number] [place] [address] 04898- 1283 Jun, [place] [id number] [place] [address] 14116- 1919 Jun, [facility] [id number] [place] [address] 95045 -1788 Jun, Dysuria R30.0 and Acute cystitis with hematuria N30.01 [facility] [id number] [place] [address] 89717- 2645 May, Anxiety F41.9 and Chronic prescription benzodiazepine use Z79.899 [facility] [id number] [place] [address] 27120- 4691 May, Anxiety F41.9 and Chronic prescription benzodiazepine use Z79.899 [facility] [address] 26907- 8650 May, Benign familial tremor G25.0 [facility] [address] 06936- 8588 Apr, Other iron deficiency anemia D50.8 [facility] [address] 38541- 5068 Apr, Anxiety F41.9 [place] [address] 11201- 9825 Apr, [facility] [address] 80362- 8801 Apr, Pancreatic cyst K86.2 ; Other iron deficiency anemia D50.8 ; Pulmonary emphysema, unspecified emphysema type J43.9 ; Coarse tremors G25.2 and Claustrophobia F40.240 [place] [id number] [place] [address] 90016- 3851 Apr, Anxiety F41.9 [facility] [id number] [place] [address] 17221- 1299 Mar, [place] [address] 74388- 0511 Mar, Anxiety F41.9 [facility] [id number] [place] [address] 33137- 8797 Feb, Anxiety F41.9 [place] [address] 20549- 6767 Jan, [facility] [id number] [place] [address] 25040- 7447 Jan, [facility] [address] 14875- 8248 Jan, Anxiety F41.9 [place] [address] 02846- 2589 Jan, Pulmonary emphysema, unspecified emphysema type J43.9 ; Encounter for immunization Z23 ; Other iron deficiency anemia D50.8 ; Anxiety F41.9 ; Diarrhea, unspecified type R19.7 and Memory loss R41.3 [place] [address] 36324- 6038 Dec, Anxiety F41.9 [place] [address] 06837- 1936 Dec, Irritable bowel syndrome with diarrhea K58.0 [place] [id number] [place] [address] 75725- 1204 05 Dec, 2016 Diarrhea, unspecified type R19.7 [place] [address] 68206- 3105 Nov, Acute non-recurrent maxillary sinusitis J01.00 ; Pulmonary emphysema, unspecified emphysema type J43.9 ; Diarrhea, unspecified type R19.7 and Other iron deficiency anemia D50.8 [place] [id number] [place] [address] 27392- 2667 Nov, [facility] [id number] [place] [address] 93841 -0917 Nov, Sore throat J02.9 and Strep pharyngitis J02.0 [facility] [id number] [place] [address] 20854- 7100 Nov, Other iron deficiency anemia D50.8 [place] [address] 35851- 5294 Nov, Anxiety F41.9 and Low hemoglobin D64.9 [place] [id number] [place] [address] 93233- 7628 14 Oct, 2016 Anxiety F41.9 [facility] [id number] [place] [address] 82950- 4732 16 Sep, 2016 Anxiety F41.9 [place] [id number] [place] [address] 12687- 3881 13 Sep, 2016 Left upper quadrant pain R10.12 [place] [id number] [place] [address] 60173- 0356 07 Sep, 2016 Other iron deficiency anemia D50.8 and Left upper quadrant pain R10.12 [place] [id number] [place] [address] 51556- 8072 17 Aug, 2016 Anxiety F41.9 [place] [id number] [place] [address] 17234- 3439 August, Other iron deficiency anemia D50.8 and Left upper quadrant pain R10.12 [place] [id number] [place] [address] 17873- 7674 Jul, Other iron deficiency anemia D50.8 ; Acute gastric ulcer with hemorrhage K25.0 and Anxiety F41.9 [place] [id number] [place] [address] 33083- 8424 18 Jul, 2016 Other iron deficiency anemia D50.8 ; Other fatigue R53.83 ; Nicotine abuse Z72.0 ; Anxiety F41.9 and Pulmonary emphysema, unspecified emphysema type J43.9 [place] [id number] [place] [address] 64985- 6696 Jun, Other iron deficiency anemia D50.8 and Hematochezia K92.1 [place] [id number] [place] [address] 53186- 1057 Jun, Other fatigue R53.83 and Other iron deficiency anemia D50.8 [place] [address] 56128- 0598 Jun, Other fatigue R53.83 [place] [address] 60380- 7457 Jun, Other iron deficiency anemia D50.8 ; Nicotine abuse Z72.0 ; Anxiety F41.9 and Pulmonary emphysema, unspecified emphysema type J43.9 [place] [address] 11036- 6689 17 Jun, 2016 Low hemoglobin D64.9 [place] [address] 43760- 4163 16 Jun, 2016 Low hemoglobin D64.9 [place] [address] 45141- 8372 14 Jun, 2016 Anxiety F41.9 ; Nicotine abuse Z72.0 and Reactive depression F32.9 [place] [address] 73101- 4953 Jun, Anxiety F41.9 [place] [address] 13923- 7399 May, Anxiety F41.9 ; Nicotine abuse Z72.0 and Reactive depression F32.9 [place] [address] 56762- 1292 May, Anxiety F41.9 [place] [address] 04199- 5279 May, Anxiety F41.9 ; Nicotine abuse Z72.0 and Reactive depression F32.9 [place] [address] 20192- 2999 May, [place] [address] 71967- 5497 May, [place] [address] 85924- 8074 May, Anxiety F41.9 [facility] [id number] [place] [address] 41898- 7053 01 May, 2016 Other emphysema J43.8 ; Cramping of hands R25.2 ; Irritable bowel syndrome with diarrhea K58.0 ; Breast cancer screening Z12.39 ; Candidal stomatitis B37.0 and Candidal esophagitis B37.81 [facility] [id number] [place] [address] 00256- 9537 Apr, Anxiety F41.9 [facility] [id number] [place] [address] 62156- 1810 Mar, Anxiety F41.9 [place] [address] 61498- 0041 Feb, Anxiety F41.9 [place] [id number] [place] [address] 04716- 7967 Jan, Anxiety F41.9 [facility] [id number] [place] [address] 76258- 2918 Jan, Anxiety F41.9 [facility] [address] 82975- 8477 Jan, Anxiety F41.9 [place] [id number] [place] [address] 31327- 5124 Jan, Anxiety F41.9 ; Nicotine abuse Z72.0 ; Pulmonary emphysema, unspecified emphysema type J43.9 ; Memory loss R41.3 and Abdominal pain, unspecified location R10.9 [facility] [id number] [place] [address] 08721- 7478 Jan, [facility] [id number] [place] [address] 29760- 5990 21 Dec, 2015 Anxiety F41.9 [facility] [id number] [place] [address] 17374 -1230 13 Dec, 2015 Right arm pain M79.601 [facility] [address] [address]- 2798 Nov, Anxiety F41.9 [facility] [address] [address]- 9406 Oct, Anxiety F41.9 [facility] [address] [address]- 4318 Oct, [facility] [id number] [place] [address] 99063- 7405 Sep, Anxiety F41.9 [facility] [address] [place] [address] 88877- 2563 Sep, Left lower quadrant pain R10.32 ; Memory loss R41.3 and Basal cell carcinoma of skin, unspecified C44.91 [facility] [address] [address]- 2053 Sep, Anxiety F41.9 [facility] [address] [address]- 3069 August, Anxiety F41.9 [facility] [address] [place] [address] 38261- 0998 August, Left lower quadrant pain R10.32 ; Memory loss R41.3 ; Pulmonary emphysema, unspecified emphysema type J43.9 and Depression, unspecified depression type F32.9 [facility] [address] [address]- 1502 August, [facility] [address] [address]- 3034 Jul, [facility] [address] [address]- 4989 Jun, [facility] [address]- 2466 May, [facility] [address] [address]- 3514 Apr, [place] [address] [place] [address] 08882- 8301 Apr, Chronic obstructive pulmonary disease with acute exacerbation J44.1 ; Anxiety F41.9 and Nicotine abuse Z72.0 [place] [id number] [place] [address] 80837- 4201 Apr, [place] [id number] [place] [address] 53824- 5001 Mar, Anxiety disorder, unspecified F41.9 [place] [id number] [place] [address] 00173- 4853 Mar, [place] [id number] [place] [address] 94139- 9895 Feb, [place] [id number] [place] [address] 07312- 0794 Nov, [place] [id number] [place] [address] 67412- 8769 Nov, [place] [id number] [place] [address] 49765- 0941 Nov, Basal cell carcinoma 173.91 and Astigmatism with presbyopia 367.20 [place] [id number] [place] [address] 95634- 6777 Oct, [place] [id number] [place] [address] 90067- 4308 Oct, Lipoma 214.9 [place] [id number] [place] [address] 99255- 5119 Sep, Ganglion cyst 727.43 ; Chronic airway obstruction, not elsewhere classified 496 ; Hypertension 401.9 ; CAD (coronary artery disease) 414.00 and Dysthymia 300.4 [place] [id number] [place] [address] 25294- 9455 14 Jul, 2014 [place] [id number] [place] [address] 37329- 7809 Jul, [facility] [place] [facility] [address] [id number] [place] [address]- 5200 Jun, [facility] [place] [facility] [address] [id number] [place] [address]- 2971 Jun, [facility] [place] [facility] [address] [id number] [place] [address]- 7599 Jun, [facility] [place] [facility] [address] [id number] [place] [address]- 6837 Jun, [facility] [place] [facility] [address] [id number] [place] [address]- 8748 May, [facility] [place] [facility] [address] [id number] [place] [address]- 8815 May, [facility] [place] [facility] [address] [id number] [place] [address]- 0829 Mar, [facility] [place] [facility] [address] [id number] [place] [address]- 4453 Mar, [facility] [place] [facility] [address] [id number] [place] [address]- 2494 Mar, [facility] [place] [facility] [address] [id number] [place] [address]- 4002 Mar, [facility] [place] [facility] [address] [id number] [place] [address]- 8473 Feb, [facility] [place] [facility] [address] [id number] [address]- 7780 Feb, [facility] [place] [facility] [address] [id number] [place] [address]- 9140 Feb, [facility] [place] [facility] [address] [id number] [place] [address]- 3401 Feb, [facility] [place] [facility] [address] [id number] [place] [address]- 4384 Feb, [facility] [place] [facility] [address] [id number] [place] [address]- 8611 Feb, [facility] [address] [id number] [place] [address]- 2644 Feb, [facility] [place] [facility] [address] [id number] [place] 9157 Feb, [facility] [place] [facility] [address] [id number] [place] [address]- 6952 Feb, [facility] [place] [facility] [address] [id number] [place] [address]- 7484 Feb, [facility] [place] [facility] [address] [id number] [place] [address]- 1786 Dec, [facility] [place] [facility] [address] [id number] [place] [address]- 8671 Dec, [facility] [place] [facility] [address] [id number] [place] [address]- 5882 Nov, [facility] [place] [facility] [address] [id number] [place] [address]- 6114 Oct, [facility] [place] [facility] [address] [id number] [place] [address]- 2775 Oct, [facility] [place] [facility] [address] [id number] [place] [address]- 5092 August, [facility] [place] [facility] [address] [id number] [place] [address]- 7073 August, [facility] [place] [facility] [address] [id number] [place] 5095 August, [facility] [place] [facility] [address] [id number] [place] [address]- 6274 August, [facility] [place] [facility] [address] [id number] [place] [address]- 1182 Jul, [facility] [place] [facility] [address] [id number] [place] [address]- 6530 Jul, [facility] [place] [facility] [address] [id number] [place] [address]- 6807 Jun, [facility] [place] [facility] [address] [id number] [place] [address]- 4792 Jun, [facility] [place] [facility] [address] [id number] [place] [address]- 0830 Jun, [facility] [place] [facility] [address] [id number] [place] [address]- 9965 Jun, [facility] [place] [facility] [address] [id number] [place] [address]- 2700 Jun, [facility] [place] [facility] [address] [id number] [place] [address]- 8848 Jun, [facility] [place] [facility] [address] [id number] [place] [address]- 6430 Jun, [facility] [place] [facility] [address] [id number] [place] [address]- 2282 Jun, [facility] [place] [facility] [address] [id number] [place] [address]- 7836 Jun, [facility] [place] [facility] [address] [id number] [place] [address]- 1320 Jun, [facility] [place] [facility] [address] [id number] [place] [address]- 3842 Jun, [facility] [place] [facility] [address] [id number] [place] [address]- 4631 Jun, [facility] [place] [facility] [address] [id number] [place] [address]- 7343 Jun, [facility] [place] [facility] [address] [id number] [place] 9286 Jun, [facility] [place] [facility] [address] [id number] [place] [address]- 2534 Jun, [facility] [place] [facility] [address] [id number] [place] [address]- 6566 04 Jun, 2013 [facility] [place] [facility] [address] [id number] [place] [address]- 9581 04 Jun, 2013 [facility] [place] [facility] [address] [id number] [place] [address]- 6861 Jun, [facility] [place] [facility] [address] [id number] [place] [address]- 6194 Jun, [facility] [place] [facility] [address] [id number] [place] [address]- 0922 May, [facility] [place] [facility] [address] [id number] [place] [address]- 9549 May, [facility] [place] [facility] [address] [id number] [place] [address]- 9838 May, [facility] [place] [facility] [address] [facility] [id number] [place] [address]- 1994 May, [facility] [place] [facility] [address] [facility] [id number] [place] [address]- 8949 Apr, [facility] [place] [facility] [address] [id number] [place] [address]- 3010 Apr, [facility] [place] [facility] [address] [facility] [id number] [place] [address] Mar, [facility] [place] [facility] [address] [facility] [id number] [place] [address] Mar, [facility] [place] [facility] [address] [id number] [address] Mar, [facility] [place] [facility] [address] [id number] [place] [address] Mar, [facility] [place] [facility] [address] [facility] [id number] [place] [address] Mar, [facility] [place] [facility] [address] [facility] [id number] [place] [address] Mar, [facility] [place] [facility] [address] [id number] [place] [address] Mar, [facility] [place] [facility] [address] [id number] [place] [address] Mar, [facility] [place] [facility] [address] [id number] [place] [address] Mar, [facility] [place] [facility] [address] [id number] [place] [address] Mar, [facility] [place] [facility] [address] [id number] [place] [address] Mar, [facility] [place] [facility] [address] [id number] [place] [address] Feb, [facility] [place] [facility] [address] [id number] [place] [address] Feb, [facility] [place] [facility] [address] [id number] [place] [address] Jan, [facility] [place] [facility] [address] [id number] [place] [address] Jan, [facility] [place] [facility] [address] [id number] [place] [address] Jan, [facility] [place] [facility] [address] [id number] [place] [address] Nov, [facility] [place] [facility] [address] [id number] [place] [address] Oct, [facility] [place] [facility] [address] [id number] [place] [address] Oct, [facility] [place] [facility] [address] [id number] [place] [address] Oct, [facility] [place] [facility] [address] [id number] [place] [address] 16 Oct, 2012 [facility] [place] [facility] [address] [id number] [place] [address] Oct, [facility] [place] [facility] [address] [id number] [place] [address] Oct, [facility] [place] [facility] [address] [id number] [place] [address] Oct, [facility] [place] [facility] [address] [id number] [place] [address] Oct, [facility] [place] [facility] [address] [id number] [place] [address] Sep, [facility] [place] [facility] [address] [id number] [place] [address] Sep, [facility] [place] [facility] [address] [id number] [place] [address] Sep, [facility] [place] [facility] [address] [id number] [place] [address] Sep, [facility] [place] [facility] [address] [id number] [place] [address] August, [facility] [place] [facility] [address] [id number] [place] [address] August, [facility] [place] [facility] [address] [id number] [place] [address] August, [facility] [place] [facility] [address] [id number] [place] [address] August, [facility] [place] [facility] [address] [id number] [place] [address] August, [facility] [place] [facility] [address] [id number] [place] [address] August, [facility] [place] [facility] [address] [id number] [place] [address] Jul, [facility] [place] [facility] [address] [id number] [place] [address] May, [facility] [place] [facility] [address] [id number] [place] [address] Apr, [facility] [address] [id number] [place] [address] Apr, [facility] [address] [id number] [place] [address] Apr, [facility] [address] [id number] [place] [address] Mar, [facility] [address] [id number] [place] [address] Mar, [facility] [address] [id number] [place] [address] Mar, [facility] [address] [id number] [place] [address] Mar, [facility] [address] [id number] [place] [address] Jan, [facility] [address] [id number] [place] [address] Nov, [facility] [address] [id number] [place] [address] Sep, [facility] [address] [id number] [place] [address] August, [facility] [address] [id number] [place] [address] August, [facility] [address] [id number] [place] [address] Jul, [facility] [address] [id number] [place] [address] Jul, [facility] [address] [id number] [place] [address] Jul, [facility] [address] [id number] [place] [address] Jul, [facility] [address] [facility] [id number] [address] Jul, [facility] [address] [id number] [address] Jun, [facility] [address] [id number] [address] Apr, [facility] [id number] [address] Feb, [facility] [id number] [address] Nov, [facility] [id number] [address] Oct, [facility] [id number] [address] Feb, [facility] [id number] [address] August, [facility] [address] [id number] [address] Jul, [facility] [address] [id number] [address] Jun, IMMUNIZATIONS No Known Immunizations SOCIAL HISTORY Never Assessed REASON FOR VISIT Dental Assessment PLAN OF CARE Activity Details Follow Up prn Reason:dental exam VITAL SIGNS MEDICATIONS Medication Instructions Dosage Frequency Start Date End Date Duration Status Vitamin C 500 MG Active Aspirin 81 mg take 1 tablet (81 mg) by oral route once daily Sep, Active Trelegy Ellipta Inhalation Once a day 1 puff 24h Active Magnesium 250 MG Orally twice a day 1 tablet with a meal 12h Active Singulair 10 MG Orally Once a day 1 tablet in the evening 24h Not- Taking Oxygen Active Isosorbide Mononitrate ER 30 MG TAKE ONE TABLET BY MOUTH IN THE MORNING 90 Active Albuterol Sulfate 1.25 mg/3 mL inhale 3 milliliters via nebulizer by Inhalation route 4 times per day PRN as needed Dec, Active Montelukast Sodium 10 mg Orally Once a day at bedtime 1 tablet in the evening Active PredniSONE 10 MG Orally Once a day 24h Active Nitroglycerin 0.4 MG Active Pristiq 100 MG TAKE ONE TABLET BY MOUTH DAILY 90 Active Ferrous Sulfate 325 (65 Fe) MG Orally Once a day 2 tablets 24h Jun, Active Plavix 75 mg take 1 tablet (75 mg) by oral route once daily Sep, Not-Taking PredniSONE 10 mg Orally Once a day- taper 1 tablet Active Cetirizine HCl 10 MG Orally Once a day 1 tablet 24h Active Folic Acid 0.8 mg Orally Once a day 1/2 tablet 24h Active Cholestyramine 4 GM/DOSE Orally Twice a day 1 scoop 12h Sep, 30 day(s) Active Metoprolol Tartrate 25 mg take 1 tablet (25 mg) by oral route 2 times per day Sep, Active Ipratropium-Albuterol 0.5-2.5 (3) MG/3ML Inhalation Four times a day 3 ml 6h Active Ativan 1 MG Orally 2 times a day 1 tablet as needed 12h Jun, 28 days Active RESULTS No Results PROCEDURES Procedure Date Ordered Result Body Site INTRAORL-PERIAPICAL 1 FILM [id number] September 18, 2017 INSTRUCTIONS MEDICATIONS ADMINISTERED No [...]
--- OUTSIDE RECORDS SUMMARY | 2017-12-30 00:33 | XMS REPORT ---
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 Active [id number] Problem Coarse tremors G25.2 Active 26293805 Problem Claustrophobia F40.240 Active 21498973 Problem Chronic prescription benzodiazepine use Z79.899 Active 416731072 Problem Benign familial tremor G25.0 Active 213969787 Problem Mixed hyperlipidemia E78.2 Active 227588440 Problem CAD (coronary artery disease) 414.00 Active 77726871 Problem Supplemental oxygen dependent Z99.81 Active 951698536963 Problem Essential hypertension I10 Active 86885911 Problem Chronic obstructive pulmonary disease with acute exacerbation J44.1 Active 229894745 Problem Memory loss R41.3 Active 76856764 Problem Anxiety F41.9 Active 19818457 Problem Pulmonary emphysema, unspecified emphysema type J43.9 Active 49889350 Problem Nicotine abuse Z72.0 Active 75245274 Problem Irritable bowel syndrome with diarrhea K58.0 Active 302214490 ALLERGIES No Information ENCOUNTERS Encounter Location Date Diagnosis [facility] [id number] [address] Nov, [facility] [address] [address] Nov, Atherosclerotic heart disease of [place] coronary artery without angina pectoris I25.10 [facility] [id number] [place] [address] 98498- 8046 Nov, Pulmonary emphysema, unspecified emphysema type J43.9 ; Therapeutic drug monitoring Z51.81 ; Anxiety F41.9 ; Atherosclerotic heart disease of [place] coronary artery without angina pectoris I25.10 ; Dysthymic disorder F34.1 ; Encounter for screening mammogram for breast cancer Z12.31 and Encounter for immunization Z23 [address] [address]- [address] Nov, Anxiety F41.9 [place] [address] 50866- 4119 Oct, [place] [address] 24540- 4740 Oct, [place] [address] 47294- 1569 Oct, Anxiety F41.9 [place] [address] 85219- 8748 Sep, [place] [address] 61927- 8609 Sep, [place] [address] 86715- 0530 Sep, Anxiety F41.9 [place] [id number] [place] [address] 00777- 3457 Sep, Pulmonary emphysema, unspecified emphysema type J43.9 ; Other iron deficiency anemia D50.8 ; Pain of toe of left foot M79.675 and Pain in right toe(s) M79.674 [place] [address] 28225- 1451 05 Sep, 2017 Mouth pain K13.79 [place] [address] 06224- 8358 04 Sep, 2017 Pain, dental K08.89 [place] [address] 10883- 5217 Sep, [facility] [address] 22143- 4069 Sep, Pulmonary emphysema, unspecified emphysema type J43.9 ; Nicotine abuse Z72.0 ; Diarrhea, unspecified type R19.7 ; Mouth pain K13.79 and Vision changes H53.9 [facility] [address] [address]60- 7295 Sep, [facility] [address] 24483- 8829 August, Anxiety F41.9 [place] [address] 95133- 3428 Jul, Anxiety F41.9 [place] [address] 36860- 5566 Jun, Pulmonary emphysema, unspecified emphysema type J43.9 and Anxiety F41.9 [place] [address] 00845- 0783 Jun, Anxiety F41.9 [facility] [address] 26621- 8633 Jun, [facility] [id number] [place] [address] 29915- 3573 Jun, [facility] [id number] [place] [address] 25956- 1591 Jun, [facility] [id number] [place] [address] 35186 -7080 Jun, Dysuria R30.0 and Acute cystitis with hematuria N30.01 [facility] [id number] [place] [address] 57319- 3594 May, Anxiety F41.9 and Chronic prescription benzodiazepine use Z79.899 [facility] [address] 43971- 4014 May, Anxiety F41.9 and Chronic prescription benzodiazepine use Z79.899 [facility] [address] 58456- 4060 May, Benign familial tremor G25.0 [facility] [address] 06969- 6792 Apr, Other iron deficiency anemia D50.8 [facility] [address] 38711- 7545 Apr, Anxiety F41.9 [facility] [address] 80361- 9830 Apr, [facility] [address] 93884- 6243 Apr, Pancreatic cyst K86.2 ; Other iron deficiency anemia D50.8 ; Pulmonary emphysema, unspecified emphysema type J43.9 ; Coarse tremors G25.2 and Claustrophobia F40.240 [facility] [address] 05383- 5043 Apr, Anxiety F41.9 [place] [address] 89372- 7804 Mar, [facility] [address] 93528- 6867 Mar, Anxiety F41.9 [facility] [address] 32786- 1136 Feb, Anxiety F41.9 [facility] [id number] [place] [address] 14952- 1530 Jan, [facility] [address] 91903- 2010 Jan, [facility] [address] 95246- 6097 Jan, Anxiety F41.9 [facility] [id number] [place] [address] 08770- 7175 Jan, Pulmonary emphysema, unspecified emphysema type J43.9 ; Encounter for immunization Z23 ; Other iron deficiency anemia D50.8 ; Anxiety F41.9 ; Diarrhea, unspecified type R19.7 and Memory loss R41.3 [place] [address] 02724- 4080 Dec, Anxiety F41.9 [place] [address] 24180- 0962 07 Dec, 2016 Irritable bowel syndrome with diarrhea K58.0 [place] [address] 904550- 1048 05 Dec, 2016 Diarrhea, unspecified type R19.7 [place] [address] 77491- 0368 Nov, Acute non-recurrent maxillary sinusitis J01.00 ; Pulmonary emphysema, unspecified emphysema type J43.9 ; Diarrhea, unspecified type R19.7 and Other iron deficiency anemia D50.8 [place] [address] 33259- 6712 Nov, [facility] [id number] [place] [address] 99948 -3765 Nov, Sore throat J02.9 and Strep pharyngitis J02.0 [place] [id number] [place] [address] 16027- 2677 Nov, Other iron deficiency anemia D50.8 [place] [id number] [place] [address] 62602- 5445 Nov, Anxiety F41.9 and Low hemoglobin D64.9 [place] [id number] [place] [address] 67086- 3746 Oct, Anxiety F41.9 [place] [address] 14947- 3925 Sep, Anxiety F41.9 [place] [address] [place] [address] 87577- 4587 13 Sep, 2016 Left upper quadrant pain R10.12 [place] [id number] [place] [address] 25299- 1290 07 Sep, 2016 Other iron deficiency anemia D50.8 and Left upper quadrant pain R10.12 [place] [id number] [place] [address] 42064- 2874 17 Aug, 2016 Anxiety F41.9 [place] [id number] [place] [address] 06305- 8396 10 Aug, 2016 Other iron deficiency anemia D50.8 and Left upper quadrant pain R10.12 [place] [id number] [place] [address] 02348- 0994 19 Jul, 2016 Other iron deficiency anemia D50.8 ; Acute gastric ulcer with hemorrhage K25.0 and Anxiety F41.9 [place] [id number] [place] [address] 14277- 9291 18 Jul, 2016 Other iron deficiency anemia D50.8 ; Other fatigue R53.83 ; Nicotine abuse Z72.0 ; Anxiety F41.9 and Pulmonary emphysema, unspecified emphysema type J43.9 [place] [id number] [place] [address] 77720- 3399 31 Jun, 2016 Other iron deficiency anemia D50.8 and Hematochezia K92.1 [place] [id number] [place] [address] 00481- 6681 Jun, Other fatigue R53.83 and Other iron deficiency anemia D50.8 [place] [id number] [place] [address] 22036- 9619 Jun, Other fatigue R53.83 [place] [id number] [place] [address] 88205- 1872 Jun, Other iron deficiency anemia D50.8 ; Nicotine abuse Z72.0 ; Anxiety F41.9 and Pulmonary emphysema, unspecified emphysema type J43.9 [place] [id number] [place] [address] 50090- 5761 17 Jun, 2016 Low hemoglobin D64.9 [place] [address] 76668- 6324 16 Jun, 2016 Low hemoglobin D64.9 [place] [address] 21226- 8034 14 Jun, 2016 Anxiety F41.9 ; Nicotine abuse Z72.0 and Reactive depression F32.9 [place] [address] 21029- 5498 Jun, Anxiety F41.9 [place] [address] 33232- 5153 May, Anxiety F41.9 ; Nicotine abuse Z72.0 and Reactive depression F32.9 [place] [address] 37161- 6183 May, Anxiety F41.9 [place] [id number] [place] [address] 76435- 5633 May, Anxiety F41.9 ; Nicotine abuse Z72.0 and Reactive depression F32.9 [place] [address] 80110- 0603 May, [place] [id number] [place] [address] 65834- 9834 May, [place] [id number] [place] [address] 84158- 5191 May, Anxiety F41.9 [place] [id number] [place] [address] 2697 May, Other emphysema J43.8 ; Cramping of hands R25.2 ; Irritable bowel syndrome with diarrhea K58.0 ; Breast cancer screening Z12.39 ; Candidal stomatitis B37.0 and Candidal esophagitis B37.81 [facility] [id number] [place] [address] 07319- 0214 10 Apr, 2016 Anxiety F41.9 [facility] [id number] [place] [address] 54849- 6949 Mar, Anxiety F41.9 [facility] [id number] [place] [address] 74845- 1605 Feb, Anxiety F41.9 [facility] [id number] [place] [address] 88178- 6094 Jan, Anxiety F41.9 [facility] [address] 12555- 5560 Jan, Anxiety F41.9 [facility] [address] 92689- 8909 Jan, Anxiety F41.9 [facility] [address] 79582- 3549 Jan, Anxiety F41.9 ; Nicotine abuse Z72.0 ; Pulmonary emphysema, unspecified emphysema type J43.9 ; Memory loss R41.3 and Abdominal pain, unspecified location R10.9 [facility] [id number] [place] [address] 75601- 9845 Jan, [facility] [id number] [place] [address] 16985- 1039 Dec, Anxiety F41.9 [facility] [id number] [place] [address] 84788 -8696 Dec, Right arm pain M79.601 [facility] [id number] [place] [address] 40328- 2765 Nov, Anxiety F41.9 [facility] [id number] [place] [address] 83205- 7367 Oct, Anxiety F41.9 [facility] [address] [place] [address]- 6363 Oct, [facility] [id number] [place] [address] 78310- 4866 Sep, Anxiety F41.9 [facility] [id number] [place] [address] 80989- 4082 Sep, Left lower quadrant pain R10.32 ; Memory loss R41.3 and Basal cell carcinoma of skin, unspecified C44.91 [facility] [id number] [place] [address] 50675- 0184 Sep, Anxiety F41.9 [facility] [id number] [place] [address] 62556- 4512 August, Anxiety F41.9 [facility] [id number] [place] [address] 15468- 5993 August, Left lower quadrant pain R10.32 ; Memory loss R41.3 ; Pulmonary emphysema, unspecified emphysema type J43.9 and Depression, unspecified depression type F32.9 [facility] [address] [place] [address] 37798- 1405 August, [facility] [id number] [place] [address] 46312- 5304 Jul, [facility] [address] [place] [address] 57998- 8976 Jun, [facility] [id number] [place] [address] 43986- 0605 May, [facility] [address] [place] [address] 54292- 0890 Apr, [facility] [id number] [place] [address] 43504- 0395 Apr, Chronic obstructive pulmonary disease with acute exacerbation J44.1 ; Anxiety F41.9 and Nicotine abuse Z72.0 [facility] [id number] [place] [address] 14913- 7343 Apr, [facility] [address], [place] [address]- 0040 Mar, Anxiety disorder, unspecified F41.9 [facility] [id number] [place] [address] 40956- 8969 Mar, [facility] [id number] [place] [address] 630049- 0055 Feb, [facility] [id number] [place] [address] 824029- 2751 Nov, [facility] [id number] [place] [address] 591840- 8726 Nov, [facility] [id number] [place] [address] 91621- 0630 Nov, Basal cell carcinoma 173.91 and Astigmatism with presbyopia 367.20 [facility] [id number] [place] [address] 65677- 1520 Oct, [facility] [id number] [place] [address] 52960- 5552 Oct, Lipoma 214.9 [facility] [id number] [place] [address] 42959- 8293 Sep, Ganglion cyst 727.43 ; Chronic airway obstruction, not elsewhere classified 496 ; Hypertension 401.9 ; CAD (coronary artery disease) 414.00 and Dysthymia 300.4 [facility] [address] [address]- 7774 Jul, [facility] [id number] [place] [address] 443024- 8320 Jul, [facility] [id number] [place] [address] 840510- 9032 Jun, [facility] [address] [address]- 1507 Jun, [facility] [address] [place] [address]- 9422 Jun, [facility] [place] [facility] [address] [id number] [place] [address]- 8473 Jun, [facility] [place] [facility] [address] [id number] [place] [address]- 2721 12 May, 2014 [facility] [place] [facility] [address] [id number] [place] [address]- 7722 May, [facility] [place] [facility] [address] [id number] [place] [address]- 9306 Mar, [facility] [place] [facility] [address] [id number] [place] [address]- 9248 Mar, [facility] [place] [facility] [address] [id number] [place] [address]- 5713 Mar, [facility] [place] [facility] [address] [id number] [place] [address]- 5266 Mar, [facility] [place] [facility] [address] [id number] [place] [address]- 0868 Feb, [facility] [place] [facility] [address] [id number] [place] [address]- 5091 Feb, [facility] [place] [facility] [address] [id number] [place] [address]- 5371 Feb, [facility] [place] [facility] [address] [id number] [place] [address]- 4472 Feb, [facility] [place] [facility] [address] [id number] [place] [address]- 8656 Feb, [facility] [place] [facility] [address] [id number] [place] [address]- 2310 Feb, [facility] [place] [facility] [address] [id number] [place] [address]- 1359 Feb, [facility] [place] [facility] [address] [id number] [place] [address]- 2525 Feb, [facility] [place] [facility] [address] [id number] [place] [address]- 8041 Feb, [facility] [place] [facility] [address] [id number] [place] [address]- 1148 Feb, [facility] [place] [facility] [address] [id number] [place] [address]- 3923 Dec, [facility] [place] [facility] [address] [id number] [place] [address]- 2610 Dec, [facility] [place] [facility] [address] [id number] [place] [address]- 0261 Nov, [facility] [place] [facility] [address] [id number] [place] [address]- 0343 Oct, [facility] [place] [facility] [address] [id number] [place] [address]- 5787 Oct, [facility] [place] [facility] [address] [id number] [place] [address]- 4317 August, [facility] [place] [facility] [address] [id number] [place] [address]- 7329 August, [facility] [place] [facility] [address] [id number] [place] [address]- 3770 August, [facility] [place] [facility] [address] [id number] [place] [address]- 5248 August, [facility] [place] [facility] [address] [id number] [place] [address]- 7022 Jul, [facility] [place] [facility] [address] [id number] [place] [address]- 3029 Jul, [facility] [place] [facility] [address] [id number] [place] [address]- 1307 Jun, [facility] [place] [facility] [address] [id number] [place] 6462 Jun, [facility] [place] [facility] [address] [id number] [place] [address]- 3411 25 Jun, 2013 [facility] [place] [facility] [address] [id number] [place] [address]- 3584 18 Jun, 2013 [facility] [place] [facility] [address] [id number] [place] [address]- 6904 18 Jun, 2013 [facility] [place] [facility] [address] [id number] [place] [address]- 1929 Jun, [facility] [place] [facility] [address] [id number] [place] [address]- 9855 Jun, [facility] [place] [facility] [address] [id number] [place] [address]- 8356 Jun, [facility] [place] [facility] [address] [id number] [place] [address]- 5916 Jun, [facility] [place] [facility] [address] [id number] [place] [address]- 7173 10 Jun, 2013 [facility] [place] [facility] [address] [id number] [place] [address]- 5524 Jun, [facility] [place] [facility] [address] [id number] [place] [address]- 0313 Jun, [facility] [place] [facility] [address] [id number] [place] [address]- 2590 Jun, [facility] [place] [facility] [address] [id number] [place] [address]- 3144 Jun, [facility] [place] [facility] [address] [id number] [place] [address]- 0662 Jun, [facility] [place] [facility] [address] [id number] [place] [address]- 1659 Jun, [facility] [place] [facility] [address] [id number] [place] [address]- 1286 Jun, [facility] [place] [facility] [address] [id number] [place] [address]- 3258 Jun, [facility] [place] [facility] [address] [id number] [place] [address]- 1642 Jun, [facility] [place] [facility] [address] [id number] [place] [address]- 3668 May, [facility] [place] [facility] [address] [id number] [place] 0591 May, [facility] [place] [facility] [address] [id number] [place] [address]- 0657 May, [facility] [place] [facility] [address] [id number] [place] [address]- 5679 May, [facility] [place] [facility] [address] [id number] [place] [address]- 6554 Apr, [facility] [place] [facility] [address] [id number] [place] [address]- 0505 Apr, [facility] [place] [facility] [address] [id number] [place] [address]- 6943 Mar, [facility] [place] [facility] [address] [id number] [place] [address]- 9321 Mar, [facility] [place] [facility] [address] [id number] [place] [address]- 9740 Mar, [facility] [place] [facility] [address] [id number] [place] [address]- 0170 Mar, [facility] [place] [facility] [address] [id number] [place] [address]- 4526 Mar, [facility] [place] [facility] [address] [id number] [place] [address]- 8332 Mar, [facility] [place] [facility] [address] [id number] [place] 7807 Mar, [facility] [place] [facility] [address] [id number] [place] [address]- 7899 Mar, [facility] [place] [facility] [address] [id number] [place] [address]- 7223 Mar, [facility] [place] [facility] [address] [id number] [place] [address]- 4867 Mar, [facility] [place] [facility] [address] [id number] [place] [address]- 4153 Mar, [facility] [place] [facility] [address] [id number] [place] [address]- 8664 Feb, [facility] [place] [facility] [address] [id number] [place] [address]- 5865 Feb, [facility] [place] [facility] [address] [id number] [place] [address]- 3845 Jan, [facility] [place] [facility] [address] [id number] [place] [address] Jan, [facility] [place] [facility] [address] [id number] [place] [address] Jan, [facility] [place] [facility] [address] [id number] [place] [address] Nov, [facility] [place] [facility] [address] [id number] [place] [address] Oct, [facility] [place] [facility] [address] [id number] [place] [address] Oct, [facility] [place] [facility] [address] [id number] [place] [address] Oct, [facility] [place] [facility] [address] [id number] [place] [address] 16 Oct, 2012 [facility] [place] [facility] [address] [id number] [place] [address] Oct, [facility] [place] [facility] [address] [id number] [place] [address] Oct, [facility] [place] [facility] [address] [id number] [place] [address] Oct, [facility] [place] [facility] [address] [id number] [place] [address] Oct, [facility] [address] [id number] [place] [address] Sep, [facility] [address] [id number] [place] [address] Sep, [facility] [address] [id number] [place] [address] Sep, [facility] [address] [id number] [place] [address] Sep, [facility] [address] [id number] [place] [address] August, [facility] [address] [id number] [place] [address] August, [facility] [address] [id number] [place] [address]- [address] August, [facility] [address] [id number] [place] [address] August, [facility] [address] [id number] [place] [address] August, [facility] [address] [id number] [place] [address] August, [facility] [address] [id number] [place] [address] Jul, [facility] [address] [id number] [place] [address] May, [facility] [address] [id number] [place] [address] Apr, [facility] [address] [id number] [place] [address] Apr, [facility] [address] [id number] [place] [address] Apr, [facility] [place] [facility] [address] [id number] [place] [address] Mar, [facility] [facility] [address] [id number] [place] [address] Mar, [facility] [place] [facility] [address] [id number] [place] [address] Mar, [facility] [place] [facility] [address] [id number] [place] [address] Mar, [facility] [address] [id number] [place] [address] Jan, [facility] [place] [facility] [address] [id number] [place] [address] Nov, [facility] [place] [facility] [address] [id number] [place] [address] Sep, [facility] [address] [id number] [place] [address] August, [facility] [place] [facility] [address] [id number] [place] [address] August, [facility] [facility] [facility] [address] [id number] [place] [address] Jul, [facility] [place] [facility] [address] [id number], [place] [address] Jul, [facility] [place] [facility] [address] [id number], [place] [address] Jul, [facility] [place] [facility] [address] [id number] [place] [address] Jul, [facility] [place] [facility] [address] [id number], [place] [address] Jul, [facility] [place] [facility] [address] [id number] [place] [address] Jun, [facility] [place] [facility] [address] [id number], [place] [address] Apr, [facility] [address] [id number], [place] [address] Feb, [facility] [id number], [place] [address] Nov, [facility] [id number], [place] [address] Oct, [facility] [id number], [place] [address] Feb, [facility] [id number], [place] [address] August, [facility] [id number], [place] [address] Jul, [facility] [id number], [place] [address] Jun, IMMUNIZATIONS No Known Immunizations SOCIAL HISTORY Never Assessed REASON FOR VISIT Med Change PLAN OF CARE VITAL SIGNS MEDICATIONS Medication Instructions Dosage Frequency Start Date End Date Duration Status Clindamycin HCl 300 MG Orally every 8 hrs 1 capsule 8h Sep,Sep 07 days Active RESULTS No Results PROCEDURES No [...]
--- OUTSIDE RECORDS SUMMARY | 2017-12-30 00:33 | XMS REPORT ---
Author Author CASEY SIMPSON Organization [facility] Address [address] [place] [address] Care Team Providers Care Youth Probation Officer Name Role Phone CASEY SIMPSON Unavailable PROBLEMS Type Condition ICD9-CM Code GVG30-GK Code Onset Dates Condition Status SNOMED Code Problem Other emphysema J43.8 Active 99117128 Problem Other iron deficiency anemia D50.8 Active 11483718 Problem Reactive depression F32.9 Active 86378717 Problem Dysthymic disorder F34.1 Active 82390219 Problem Atherosclerotic heart disease of [place] coronary artery without angina pectoris I25.10 Active 104525314060890 Problem Coarse tremors G25.2 Active 88172705 Problem Claustrophobia F40.240 Active 97603497 Problem Chronic prescription benzodiazepine use Z79.899 Active 527558192 Problem Benign familial tremor G25.0 Active 011751213 Problem Mixed hyperlipidemia E78.2 Active 820032377 Problem CAD (coronary artery disease) 414.00 Active 47386857 Problem Supplemental oxygen dependent Z99.81 Active 161042162338 Problem Essential hypertension I10 Active 57890198 Problem Chronic obstructive pulmonary disease with acute exacerbation J44.1 Active 380844749 Problem Memory loss R41.3 Active 79817997 Problem Anxiety F41.9 Active 13685123 Problem Pulmonary emphysema, unspecified emphysema type J43.9 Active 88146720 Problem Nicotine abuse Z72.0 Active 29282956 Problem Irritable bowel syndrome with diarrhea K58.0 Active 998928532 ALLERGIES No Information ENCOUNTERS Encounter Location Date Diagnosis [facility] [id number] [address] Nov, [facility] [address] [address] Nov, Atherosclerotic heart disease of [place] coronary artery without angina pectoris I25.10 [facility] [id number] [place] [address] 37562- 7762 Nov, Pulmonary emphysema, unspecified emphysema type J43.9 ; Therapeutic drug monitoring Z51.81 ; Anxiety F41.9 ; Atherosclerotic heart disease of [place] coronary artery without angina pectoris I25.10 ; Dysthymic disorder F34.1 ; Encounter for screening mammogram for breast cancer Z12.31 and Encounter for immunization Z23 [place] [address] 24287- 1174 Nov, Anxiety F41.9 [place] [address] 49248- 8303 Oct, [place] [address] 36616- 7836 Oct, [place] [address] 21932- 2652 Oct, Anxiety F41.9 [place] [address] 27108- 3989 Sep, [place] [address] 33707- 6427 Sep, [place] [address] 10758- 9370 Sep, Anxiety F41.9 [place] [id number] [place] [address] 26754- 4275 Sep, Pulmonary emphysema, unspecified emphysema type J43.9 ; Other iron deficiency anemia D50.8 ; Pain of toe of left foot M79.675 and Pain in right toe(s) M79.674 [place] [address] 94954- 6992 05 Sep, 2017 Mouth pain K13.79 [place] [address] 23170- 7817 04 Sep, 2017 Pain, dental K08.89 [place] [address] 67960- 6935 Sep, [facility] [address] 71745- 8036 Sep, Pulmonary emphysema, unspecified emphysema type J43.9 ; Nicotine abuse Z72.0 ; Diarrhea, unspecified type R19.7 ; Mouth pain K13.79 and Vision changes H53.9 [facility] [address] 68872- 7176 Sep, [facility] [address] 70278- 9921 August, Anxiety F41.9 [place] [address] 08626- 9363 Jul, Anxiety F41.9 [place] [address] 89022- 4695 Jun, Pulmonary emphysema, unspecified emphysema type J43.9 and Anxiety F41.9 [place] [address] 94593- 1835 Jun, Anxiety F41.9 [facility] [address] 42492- 1128 Jun, [facility] [id number] [place] [address] 02735- 1239 Jun, [facility] [id number] [place] [address] 85789- 3906 Jun, [facility] [id number] [place] [address] 46933 -7417 Jun, Dysuria R30.0 and Acute cystitis with hematuria N30.01 [facility] [id number] [place] [address] 50829- 3753 May, Anxiety F41.9 and Chronic prescription benzodiazepine use Z79.899 [facility] [address] 32817- 6601 May, Anxiety F41.9 and Chronic prescription benzodiazepine use Z79.899 [facility] [address] 21540- 3897 May, Benign familial tremor G25.0 [facility] [address] 67153- 4007 Apr, Other iron deficiency anemia D50.8 [facility] [address] 28295- 7525 Apr, Anxiety F41.9 [facility] [address] 59655- 0058 Apr, [facility] [address] 19004- 8224 Apr, Pancreatic cyst K86.2 ; Other iron deficiency anemia D50.8 ; Pulmonary emphysema, unspecified emphysema type J43.9 ; Coarse tremors G25.2 and Claustrophobia F40.240 [facility] [address] 08595- 2664 Apr, Anxiety F41.9 [place] [address] 39333- 2903 Mar, [facility] [address] 33663- 3744 Mar, Anxiety F41.9 [facility] [address] 63626- 7397 Feb, Anxiety F41.9 [facility] [id number] [place] [address] 38526- 5306 Jan, [facility] [address] 77351- 1902 Jan, [facility] [address] 00886- 5823 Jan, Anxiety F41.9 [facility] [id number] [place] [address] 98725- 0079 Jan, Pulmonary emphysema, unspecified emphysema type J43.9 ; Encounter for immunization Z23 ; Other iron deficiency anemia D50.8 ; Anxiety F41.9 ; Diarrhea, unspecified type R19.7 and Memory loss R41.3 [place] [address] 87128- 3480 Dec, Anxiety F41.9 [place] [address] 87581- 6846 07 Dec, 2016 Irritable bowel syndrome with diarrhea K58.0 [place] [address] 474789- 0435 05 Dec, 2016 Diarrhea, unspecified type R19.7 [place] [address] 13898- 1136 Nov, Acute non-recurrent maxillary sinusitis J01.00 ; Pulmonary emphysema, unspecified emphysema type J43.9 ; Diarrhea, unspecified type R19.7 and Other iron deficiency anemia D50.8 [place] [address] 27532- 4922 Nov, [facility] [id number] [place] [address] 19179 -9757 Nov, Sore throat J02.9 and Strep pharyngitis J02.0 [place] [id number] [place] [address] 57090- 9508 Nov, Other iron deficiency anemia D50.8 [place] [id number] [place] [address] 90322- 2832 Nov, Anxiety F41.9 and Low hemoglobin D64.9 [place] [id number] [place] [address] 38097- 8214 Oct, Anxiety F41.9 [place] [address] 31169- 0828 Sep, Anxiety F41.9 [place] [id number] [place] [address] 62562- 9643 13 Sep, 2016 Left upper quadrant pain R10.12 [place] [id number] [place] [address] 37963- 2438 07 Sep, 2016 Other iron deficiency anemia D50.8 and Left upper quadrant pain R10.12 [place] [id number] [place] [address] 10320- 3537 17 Aug, 2016 Anxiety F41.9 [place] [id number] [place] [address] 85761- 6335 10 Aug, 2016 Other iron deficiency anemia D50.8 and Left upper quadrant pain R10.12 [place] [id number] [place] [address] 77390- 5452 19 Jul, 2016 Other iron deficiency anemia D50.8 ; Acute gastric ulcer with hemorrhage K25.0 and Anxiety F41.9 [place] [id number] [place] [address] 10477- 9221 18 Jul, 2016 Other iron deficiency anemia D50.8 ; Other fatigue R53.83 ; Nicotine abuse Z72.0 ; Anxiety F41.9 and Pulmonary emphysema, unspecified emphysema type J43.9 [place] [id number] [place] [address] 98590- 2350 31 Jun, 2016 Other iron deficiency anemia D50.8 and Hematochezia K92.1 [place] [id number] [place] [address] 97084- 5935 Jun, Other fatigue R53.83 and Other iron deficiency anemia D50.8 [place] [id number] [place] [address] 59052- 4157 Jun, Other fatigue R53.83 [place] [id number] [place] [address] 00497- 2873 Jun, Other iron deficiency anemia D50.8 ; Nicotine abuse Z72.0 ; Anxiety F41.9 and Pulmonary emphysema, unspecified emphysema type J43.9 [place] [id number] [place] [address] 76418- 2069 17 Jun, 2016 Low hemoglobin D64.9 [place] [address] 91423- 4451 16 Jun, 2016 Low hemoglobin D64.9 [place] [address] 66144- 4825 14 Jun, 2016 Anxiety F41.9 ; Nicotine abuse Z72.0 and Reactive depression F32.9 [place] [address] 69642- 5503 Jun, Anxiety F41.9 [place] [address] 08409- 2898 May, Anxiety F41.9 ; Nicotine abuse Z72.0 and Reactive depression F32.9 [place] [address] 68096- 4553 May, Anxiety F41.9 [place] [id number] [place] [address] 22964- 0722 May, Anxiety F41.9 ; Nicotine abuse Z72.0 and Reactive depression F32.9 [place] [address] 81197- 3475 May, [place] [id number] [place] [address] 23550- 1022 May, [place] [id number] [place] [address] 65239- 2334 May, Anxiety F41.9 [place] [id number] [place] [address]1 May, Other emphysema J43.8 ; Cramping of hands R25.2 ; Irritable bowel syndrome with diarrhea K58.0 ; Breast cancer screening Z12.39 ; Candidal stomatitis B37.0 and Candidal esophagitis B37.81 [facility] [id number] [place] [address] 02813- 7482 10 Apr, 2016 Anxiety F41.9 [facility] [id number] [place] [address] 31805- 9695 Mar, Anxiety F41.9 [facility] [id number] [place] [address] 56082- 6989 Feb, Anxiety F41.9 [facility] [id number] [place] [address] 56256- 8280 Jan, Anxiety F41.9 [facility] [address] 17702- 4725 Jan, Anxiety F41.9 [facility] [address] 10757- 0351 Jan, Anxiety F41.9 [facility] [address] 84190- 0805 Jan, Anxiety F41.9 ; Nicotine abuse Z72.0 ; Pulmonary emphysema, unspecified emphysema type J43.9 ; Memory loss R41.3 and Abdominal pain, unspecified location R10.9 [facility] [id number] [place] [address] 36109- 8312 Jan, [facility] [id number] [place] [address] 39294- 6358 Dec, Anxiety F41.9 [facility] [id number] [place] [address] 15018 -0006 Dec, Right arm pain M79.601 [facility] [id number] [place] [address] 78002- 5897 Nov, Anxiety F41.9 [facility] [id number] [place] [address] 25063- 5559 Oct, Anxiety F41.9 [facility] [address] [place] [address]- 0132 Oct, [facility] [id number] [place] [address] 80139- 9357 Sep, Anxiety F41.9 [facility] [id number] [place] [address] 36344- 6232 Sep, Left lower quadrant pain R10.32 ; Memory loss R41.3 and Basal cell carcinoma of skin, unspecified C44.91 [facility] [id number] [place] [address] 56811- 8287 Sep, Anxiety F41.9 [facility] [id number] [place] [address] 09622- 4177 August, Anxiety F41.9 [facility] [id number] [place] [address] 87111- 7749 August, Left lower quadrant pain R10.32 ; Memory loss R41.3 ; Pulmonary emphysema, unspecified emphysema type J43.9 and Depression, unspecified depression type F32.9 [facility] [id number] [place] [address] 19153- 3964 August, [facility] [id number] [place] [address] 16955- 1260 Jul, [facility] [id number] [place] [address] 27191- 5583 Jun, [facility] [id number] [place] [address] 17548- 4914 May, [facility] [id number] [place] [address] 25305- 0364 Apr, [facility] [id number] [place] [address] 40126- 5273 Apr, Chronic obstructive pulmonary disease with acute exacerbation J44.1 ; Anxiety F41.9 and Nicotine abuse Z72.0 [facility] [id number] [place] [address] 23900- 8422 Apr, [facility] [address] [address]- 7000 Mar, Anxiety disorder, unspecified F41.9 [facility] [id number] [place] [address] 74015- 7622 Mar, [facility] [id number] [place] [address] 375138- 3497 Feb, [facility] [id number] [place] [address] 363477- 5627 Nov, [facility] [id number] [place] [address] 509528- 8577 Nov, [facility] [id number] [place] [address] 82228- 8768 Nov, Basal cell carcinoma 173.91 and Astigmatism with presbyopia 367.20 [facility] [id number] [place] [address] 86383- 2764 Oct, [facility] [id number] [place] [address] 40288- 9072 Oct, Lipoma 214.9 [facility] [id number] [place] [address] 51630- 3660 Sep, Ganglion cyst 727.43 ; Chronic airway obstruction, not elsewhere classified 496 ; Hypertension 401.9 ; CAD (coronary artery disease) 414.00 and Dysthymia 300.4 [facility] [id number], [place] [address]- 4025 Jul, [facility] [id number] [place] [address] 361479- 6209 Jul, [facility] [id number] [place] [address] 583059- 8402 Jun, [facility] [address], [place] [address]- 2287 Jun, [facility] [address] [place] [address]- 4080 Jun, [facility] [place] [facility] [address] [id number] [place] [address]- 1990 Jun, [facility] [place] [facility] [address] [id number] [place] [address]- 4780 12 May, 2014 [facility] [place] [facility] [address] [id number] [place] [address]- 6328 May, [facility] [place] [facility] [address] [id number] [place] [address]- 2493 Mar, [facility] [place] [facility] [address] [id number] [place] [address]- 6212 Mar, [facility] [place] [facility] [address] [id number] [place] [address]- 8587 Mar, [facility] [place] [facility] [address] [id number] [place] [address]- 7992 Mar, [facility] [place] [facility] [address] [id number] [place] [address]- 2355 Feb, [facility] [place] [facility] [address] [id number] [place] [address]- 1831 Feb, [facility] [place] [facility] [address] [id number] [place] [address]- 1746 Feb, [facility] [place] [facility] [address] [id number] [place] [address]- 5793 Feb, [facility] [place] [facility] [address] [id number] [place] [address]- 2308 Feb, [facility] [place] [facility] [address] [id number] [place] [address]- 5889 Feb, [facility] [place] [facility] [address] [id number] [place] [address]- 7625 Feb, [facility] [place] [facility] [address] [id number] [place] [address]- 6713 Feb, [facility] [place] [facility] [address] [id number] [place] [address]- 0337 Feb, [facility] [place] [facility] [address] [id number] [place] [address]- 9406 Feb, [facility] [place] [facility] [address] [id number] [place] [address]- 3021 Dec, [facility] [place] [facility] [address] [id number] [place] [address]- 8380 Dec, [facility] [place] [facility] [address] [id number] [place] [address]- 8797 Nov, [facility] [place] [facility] [address] [id number] [place] [address]- 5277 Oct, [facility] [place] [facility] [address] [id number] [place] [address]- 4859 Oct, [facility] [place] [facility] [address] [id number] [place] [address]- 2232 August, [facility] [place] [facility] [address] [id number] [place] [address]- 2216 August, [facility] [place] [facility] [address] [id number] [place] [address]- 7007 August, [facility] [place] [facility] [address] [id number] [place] [address]- 8277 August, [facility] [place] [facility] [address] [id number] [place] [address]- 3787 Jul, [facility] [place] [facility] [address] [id number] [place] [address]- 1712 Jul, [facility] [place] [facility] [address] [id number] [place] [address]- 4953 Jun, [facility] [place] [facility] [address] [id number] [place] 0840 Jun, [facility] [place] [facility] [address] [id number] [place] [address]- 2092 25 Jun, 2013 [facility] [place] [facility] [address] [id number] [place] [address]- 5302 18 Jun, 2013 [facility] [place] [facility] [address] [id number] [place] [address]- 5774 18 Jun, 2013 [facility] [place] [facility] [address] [id number] [place] [address]- 5120 Jun, [facility] [place] [facility] [address] [id number] [place] [address]- 7438 Jun, [facility] [place] [facility] [address] [id number] [place] [address]- 4950 Jun, [facility] [place] [facility] [address] [id number] [place] [address]- 5275 Jun, [facility] [place] [facility] [address] [id number] [place] [address]- 1799 10 Jun, 2013 [facility] [place] [facility] [address] [id number] [place] [address]- 5318 Jun, [facility] [place] [facility] [address] [id number] [place] [address]- 5248 Jun, [facility] [place] [facility] [address] [id number] [place] [address]- 6792 Jun, [facility] [place] [facility] [address] [id number] [place] [address]- 8719 Jun, [facility] [place] [facility] [address] [id number] [place] [address]- 5266 Jun, [facility] [place] [facility] [address] [id number] [place] [address]- 9722 Jun, [facility] [place] [facility] [address] [id number] [place] [address]- 4348 Jun, [facility] [place] [facility] [address] [id number] [place] [address]- 9829 Jun, [facility] [place] [facility] [address] [id number] [place] [address]- 7311 Jun, [facility] [place] [facility] [address] [id number] [place] [address]- 6865 May, [facility] [place] [facility] [address] [id number] [place] 7080 May, [facility] [place] [facility] [address] [id number] [place] [address]- 3238 May, [facility] [place] [facility] [address] [id number] [place] [address]- 5602 May, [facility] [place] [facility] [address] [id number] [place] [address]- 9678 Apr, [facility] [place] [facility] [address] [id number] [place] [address]- 0093 Apr, [facility] [place] [facility] [address] [id number] [place] [address] Mar, [facility] [place] [facility] [address] [id number] [place] [address] Mar, [facility] [place] [facility] [address] [id number] [place] [address] Mar, [facility] [place] [facility] [address] [id number] [place] [address] Mar, [facility] [place] [facility] [address] [id number] [place] [address] Mar, [facility] [place] [facility] [address] [id number] [place] [address] Mar, [facility] [place] [facility] [address] [id number] [place] [address] Mar, [facility] [place] [facility] [address] [id number] [place] [address] Mar, [facility] [place] [facility] [address] [id number] [place] [address] Mar, [facility] [place] [facility] [address] [id number] [place] [address] Mar, [facility] [place] [facility] [address] [id number] [place] [address] Mar, [facility] [place] [facility] [address] [id number] [place] [address] Feb, [facility] [place] [facility] [address] [id number] [place] [address] Feb, [facility] [place] [facility] [address] [id number] [place] [address] Jan, [facility] [place] [facility] [address] [id number] [place] [address] Jan, [facility] [place] [facility] [address] [id number] [place] [address] Jan, [facility] [place] [facility] [address] [id number] [place] [address] Nov, [facility] [place] [facility] [address] [id number] [place] [address] Oct, [facility] [place] [facility] [address] [id number] [place] [address] Oct, [facility] [place] [facility] [address] [id number] [place] [address] Oct, [facility] [place] [facility] [address] [id number] [place] [address] 16 Oct, 2012 [facility] [place] [facility] [address] [id number] [place] [address] Oct, [facility] [place] [facility] [address] [id number] [place] [address] Oct, [facility] [place] [facility] [address] [id number] [place] [address] Oct, [facility] [place] [facility] [address] [id number] [place] [address] Oct, [facility] [address] [id number] [place] [address] Sep, [facility] [place] [facility] [address] [id number] [place] [address] Sep, [facility] [address] [id number] [place] [address] Sep, [facility] [address] [id number] [place] [address] Sep, [facility] [address] [id number] [place] [address] August, [facility] [address] [id number] [place] [address] August, [facility] [address] [id number] [place] [address] August, [facility] [address] [id number] [place] [address] August, [facility] [address] [id number] [place] [address] August, [facility] [address] [id number] [place] [address] August, [facility] [place] [facility] [address] [id number] [place] [address] Jul, [facility] [place] [facility] [address] [id number] [place] [address] May, THE [facility] [place] [facility] [address] [id number] [place] [address] Apr, [facility] [place] [facility] [address] [id number] [place] [address] Apr, [facility] [place] [facility] [address] [id number] [place] [address] Apr, [facility] [place] [facility] [address] [id number] [place] [address] Mar, [facility] [place] [facility] [address] [id number] [place] [address] Mar, [facility] [place] [facility] [address] [id number] [place] [address] Mar, [facility] [place] [facility] [address] [id number] [place] [address] Mar, [facility] [place] [facility] [address] [id number] [place] [address] Jan, [facility] [place] [facility] [address] [id number] [place] [address] Nov, [facility] [place] [facility] [address] [id number] [place] [address] Sep, [facility] [place] [facility] [address] [id number] [place] [address] August, [facility] [place] [facility] [address] [id number] [place] [address] August, [facility] [place] [facility] [address] [id number] [place] [address] Jul, [facility] [place] [facility] [address] [id number], [place] [address] Jul, [facility] [place] [facility] [address] [id number], [place] [address] Jul, [facility] [place] [facility] [address] [id number] [place] [address] Jul, [facility] [place] [facility] [address] [id number], [place] [address] Jul, [facility] [place] [facility] [address] [id number] [place] [address] Jun, [facility] [place] [facility] [address] [id number] [address] Apr, [facility] [address] [id number], [place] [address] Feb, [facility] [id number], [place] [address] Nov, [facility] [id number], [place] [address] Oct, [facility] [id number], [place] [address] Feb, [facility] [id number], [place] [address] August, [facility] [id number], [place] [address] Jul, [facility] [id number], [place] [address] Jun, IMMUNIZATIONS No Known Immunizations SOCIAL HISTORY Never Assessed REASON FOR VISIT abx PLAN OF CARE VITAL SIGNS MEDICATIONS Unknown [...]
--- OUTSIDE RECORDS SUMMARY | 2017-12-30 00:34 | XMS REPORT ---
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 Active [id number] Problem Dysthymic disorder F34.1 Active 42437474 Problem Coarse tremors G25.2 Active 26316222 Problem Claustrophobia F40.240 Active 46943130 Problem Chronic prescription benzodiazepine use Z79.899 Active 860426891 Problem Benign familial tremor G25.0 Active 889927642 Problem Essential hypertension I10 Active 33347584 Problem CAD (coronary artery disease) 414.00 Active 32078502 Problem Supplemental oxygen dependent Z99.81 Active 732890759504 Problem Anxiety F41.9 Active 02821846 Problem Pulmonary emphysema, unspecified emphysema type J43.9 Active 34970381 Problem Nicotine abuse Z72.0 Active 49398777 Problem Memory loss R41.3 Active 29984370 Problem Chronic obstructive pulmonary disease with acute exacerbation J44.1 Active 867107486 Problem Irritable bowel syndrome with diarrhea K58.0 Active 680460634 ALLERGIES No Information ENCOUNTERS Encounter Location Date Diagnosis [facility] [place] [id number] [address] Nov, [facility] [place] [address], [place] [address] Nov, 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 [facility] [place] [id number], [place] [address] Nov, Pulmonary emphysema, unspecified emphysema type J43.9 ; Therapeutic drug monitoring Z51.81 ; Anxiety F41.9 ; 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 ; Dysthymic disorder F34.1 ; Encounter for screening mammogram for breast cancer Z12.31 and Encounter for immunization Z23 [place] [id number] [place] [address] 23488- 3412 Nov, Anxiety F41.9 [place] [address] [address]70- 0085 30 Oct, 2017 [place] [address] 6[address]25- 7903 Oct, [place] [address] 59523- 7941 Oct, Anxiety F41.9 [place] [address] 19930- 6713 Sep, [place] [id number] [place] [address] 55439- 5406 Sep, [place] [address] 72571- 0100 Sep, Anxiety F41.9 [place] [id number] [place] [address] 57928- 9287 Sep, Pulmonary emphysema, unspecified emphysema type J43.9 ; Other iron deficiency anemia D50.8 ; Pain of toe of left foot M79.675 and Pain in right toe(s) M79.674 [place] [id number] [place] [address] 40584- 6270 05 Sep, 2017 Mouth pain K13.79 [place] [address] 45425- 4955 04 Sep, 2017 Pain, dental K08.89 [place] [address] 16876- 2318 Sep, [facility] [place] [id number] [place] [address] 44924- 3150 Sep, Pulmonary emphysema, unspecified emphysema type J43.9 ; Nicotine abuse Z72.0 ; Diarrhea, unspecified type R19.7 ; Mouth pain K13.79 and Vision changes H53.9 [facility] [place] [address] 41303- 3715 Sep, [facility] [place] [address] 6[address]14- 5264 August, Anxiety F41.9 [place] [address] 03379- 0104 Jul, Anxiety F41.9 [place] [address] 09280- 3002 Jun, Pulmonary emphysema, unspecified emphysema type J43.9 and Anxiety F41.9 [place] [address] 15507- 0348 Jun, Anxiety F41.9 [facility] [place] [address] 91477- 7858 Jun, [facility] [place] [id number] [place] [address] 50979- 9507 Jun, [facility] [place] [id number] [place] [address] 42207- 2088 Jun, [facility] [id number] [place] [address] 22870 -2129 Jun, Dysuria R30.0 and Acute cystitis with hematuria N30.01 [facility] [place] [address] 46924- 3222 May, Anxiety F41.9 and Chronic prescription benzodiazepine use Z79.899 [facility] [place] [id number] [place] [address] 26070- 4019 May, Anxiety F41.9 and Chronic prescription benzodiazepine use Z79.899 [facility] [place] [id number] [place] [address] 75018- 1842 May, Benign familial tremor G25.0 [facility] [place] [id number] [place] [address] 87579- 3075 Apr, Other iron deficiency anemia D50.8 [facility] [place] [address] 04699- 4015 Apr, Anxiety F41.9 [facility] [place] [address] 65507- 5978 Apr, [facility] [place] [address] 16076- 6276 Apr, Pancreatic cyst K86.2 ; Other iron deficiency anemia D50.8 ; Pulmonary emphysema, unspecified emphysema type J43.9 ; Coarse tremors G25.2 and Claustrophobia F40.240 [facility] [place] [address] 74021- 5299 Apr, Anxiety F41.9 [facility] [place] [address] 54864- 8113 Mar, [facility] [place] [address] 94366- 9199 Mar, Anxiety F41.9 [facility] [place] [address] 74024- 7793 Feb, Anxiety F41.9 [facility] [place] [id number] [place] [address] 04046- 1674 Jan, [facility] [place] [address] 65886- 9995 Jan, [facility] [place] [id number] [place] [address] 88494- 8634 Jan, Anxiety F41.9 [facility] [place] [address] 41056- 0322 Jan, Pulmonary emphysema, unspecified emphysema type J43.9 ; Encounter for immunization Z23 ; Other iron deficiency anemia D50.8 ; Anxiety F41.9 ; Diarrhea, unspecified type R19.7 and Memory loss R41.3 [facility] [place] [id number] [place] [address] 97467- 3490 Dec, Anxiety F41.9 [place] [address] 39642- 3136 Dec, Irritable bowel syndrome with diarrhea K58.0 [place] [id number] [place] [address] 77380- 1709 05 Dec, 2016 Diarrhea, unspecified type R19.7 [place] [id number] [place] [address] 21211- 7106 Nov, Acute non-recurrent maxillary sinusitis J01.00 ; Pulmonary emphysema, unspecified emphysema type J43.9 ; Diarrhea, unspecified type R19.7 and Other iron deficiency anemia D50.8 [place] [id number] [place] [address] 53841- 1972 Nov, [facility] [id number] [place] [address] 31451 -8117 Nov, Sore throat J02.9 and Strep pharyngitis J02.0 [place] [id number] [place] [address] 12324- 9411 Nov, Other iron deficiency anemia D50.8 [facility] [place] [id number] [place] [address] 19880- 3044 Nov, Anxiety F41.9 and Low hemoglobin D64.9 [place] [id number] [place] [address] 88835- 3819 Oct, Anxiety F41.9 [facility] [place] [id number] [place] [address] 03710- 3197 Sep, Anxiety F41.9 [place] [address], [place] [address]- 1032 13 Sep, 2016 Left upper quadrant pain R10.12 [place] [id number] [place] [address] 33695- 5010 07 Sep, 2016 Other iron deficiency anemia D50.8 and Left upper quadrant pain R10.12 [place] [id number] [place] [address] 53408- 3572 17 Aug, 2016 Anxiety F41.9 [place] [id number] [place] [address] 25175- 3832 August, Other iron deficiency anemia D50.8 and Left upper quadrant pain R10.12 [place] [id number] [place] [address] 94697- 1412 19 Jul, 2016 Other iron deficiency anemia D50.8 ; Acute gastric ulcer with hemorrhage K25.0 and Anxiety F41.9 [place] [id number] [place] [address] 48926- 9780 Jul, Other iron deficiency anemia D50.8 ; Other fatigue R53.83 ; Nicotine abuse Z72.0 ; Anxiety F41.9 and Pulmonary emphysema, unspecified emphysema type J43.9 [place] [id number] [place] [address] 44683- 3635 Jun, Other iron deficiency anemia D50.8 and Hematochezia K92.1 [place] [id number] [place] [address] 16633- 7268 Jun, Other fatigue R53.83 and Other iron deficiency anemia D50.8 [place] [id number] [place] [address] 00526- 1911 Jun, Other fatigue R53.83 [place] [id number] [place] [address] 10387- 7683 Jun, Other iron deficiency anemia D50.8 ; Nicotine abuse Z72.0 ; Anxiety F41.9 and Pulmonary emphysema, unspecified emphysema type J43.9 [place] [id number] [place] [address] 39727- 6759 17 Jun, 2016 Low hemoglobin D64.9 [address] [place] [address] 38903- 6206 16 Jun, 2016 Low hemoglobin D64.9 [place] [address] 86951- 5066 14 Jun, 2016 Anxiety F41.9 ; Nicotine abuse Z72.0 and Reactive depression F32.9 [address] [place] [address] 05695- 9364 Jun, Anxiety F41.9 [place] [address] 71858- 5432 May, Anxiety F41.9 ; Nicotine abuse Z72.0 and Reactive depression F32.9 [address] [address] 15645- 5558 May, Anxiety F41.9 [address] [address] 52193- 2163 May, Anxiety F41.9 ; Nicotine abuse Z72.0 and Reactive depression F32.9 [place] [id number] [place] [address] 84067- 2253 May, [place] [address] 58917- 4960 May, [place] [id number] [place] [address] 71817- 7232 May, Anxiety F41.9 [address] [place] [address] 60408- 0568 May, Other emphysema J43.8 ; Cramping of hands R25.2 ; Irritable bowel syndrome with diarrhea K58.0 ; Breast cancer screening Z12.39 ; Candidal stomatitis B37.0 and Candidal esophagitis B37.81 [address] [id number] [place] [address] 36891- 0095 10 Apr, 2016 Anxiety F41.9 [facility] [place] [id number] [place] [address] 80049- 3211 Mar, Anxiety F41.9 [facility] [place] [id number] [place] [address] 96918- 3507 Feb, Anxiety F41.9 [facility] [place] [id number] [place] [address] 94963- 0378 Jan, Anxiety F41.9 [facility] [place] [id number] [place] [address] 04173- 7702 Jan, Anxiety F41.9 [facility] [place] [id number] [place] [address] 51086- 9280 Jan, Anxiety F41.9 [facility] [place] [id number] [place] [address] 91303- 5209 Jan, Anxiety F41.9 ; Nicotine abuse Z72.0 ; Pulmonary emphysema, unspecified emphysema type J43.9 ; Memory loss R41.3 and Abdominal pain, unspecified location R10.9 [facility] [place] [id number] [place] [address] 11906- 9357 Jan, [facility] [place] [id number] [place] [address] 01400- 1826 Dec, Anxiety F41.9 [facility] [id number] [place] [address] 83099 -4632 Dec, Right arm pain M79.601 [facility] [place] [id number] [place] [address] 70966- 6284 Nov, Anxiety F41.9 [facility] [place] [id number] [place] [address] 15474- 8996 Oct, Anxiety F41.9 [facility] [place] [id number] [place] [address] 95409- 1841 Oct, [facility] [place] [address], [place] [address]- 1134 Sep, Anxiety F41.9 [facility] [place] [id number] [place] [address] 02129- 7742 Sep, Left lower quadrant pain R10.32 ; Memory loss R41.3 and Basal cell carcinoma of skin, unspecified C44.91 [facility] [place] [id number] [place] [address] 49255- 5589 Sep, Anxiety F41.9 [facility] [place] [id number] [place] [address] 23731- 9463 August, Anxiety F41.9 [facility] [place] [id number] [place] [address] 00234- 3239 August, Left lower quadrant pain R10.32 ; Memory loss R41.3 ; Pulmonary emphysema, unspecified emphysema type J43.9 and Depression, unspecified depression type F32.9 [facility] [place] [id number] [place] [address] 66230- 0316 August, [facility] [place] [id number] [place] [address] 12601- 5628 Jul, [facility] [place] [id number] [place] [address] 98131- 2784 Jun, [facility] [place] [id number] [place] [address] 57919- 8701 May, [facility] [place] [id number] [place] [address] 79060- 8101 Apr, [facility] [place] [id number] [place] [address] 94980- 5134 Apr, Chronic obstructive pulmonary disease with acute exacerbation J44.1 ; Anxiety F41.9 and Nicotine abuse Z72.0 [facility] [place] [id number] [place] [address] 49885- 3157 Apr, [facility] [place] [address], [place] [address]- 2534 Mar, Anxiety disorder, unspecified F41.9 [facility] [place] [id number] [place] [address] 714134- 2180 Mar, [facility] [place] [id number] [place] [address] 954791- 2118 Feb, [facility] [place] [id number] [place] [address] 19459- 2411 Nov, [facility] [place] [id number] [place] [address] 87669- 7012 Nov, [facility] [place] [id number] [place] [address] 08899- 0101 Nov, Basal cell carcinoma 173.91 and Astigmatism with presbyopia 367.20 [place] [id number] [place] [address] 49414- 6889 Oct, [facility] [place] [id number] [place] [address] 91946- 3800 Oct, Lipoma 214.9 [facility] [place] [id number] [place] [address] 12681- 1384 Sep, Ganglion cyst 727.43 ; Chronic airway obstruction, not elsewhere classified 496 ; Hypertension 401.9 ; CAD (coronary artery disease) 414.00 and Dysthymia 300.4 [facility] [place] [address] [place] [address] 95939- 8456 Jul, [facility] [place] [id number] [place] [address] 98772- 8527 Jul, [facility] [place] [id number] [place] [address] 55433854- 2125 Jun, [facility] [place] [id number] [place] [address] 372769- 7049 Jun, [facility] [place] [id number] [place] [address] 28080- 7191 Jun, [facility] [place] [facility] [address] [id number] [place] [address]- 6791 Jun, [facility] [place] [facility] [address] [id number] [place] [address]- 8125 May, [facility] [place] [facility] [address] [id number] [place] [address]- 2057 May, [facility] [place] [facility] [address] [id number] [place] [address]- 2761 Mar, [facility] [place] [facility] [address] [id number] [place] [address]- 6053 Mar, [facility] [place] [facility] [address] [id number] [place] [address]- 3340 Mar, [facility] [place] [facility] [address] [id number] [place] [address]- 4218 Mar, [facility] [place] [facility] [address] [id number] [place] [address]- 0950 Feb, [facility] [place] [facility] [address] [id number] [place] [address]- 4898 Feb, [facility] [place] [facility] [address] [id number] [place] [address]- 3943 Feb, [facility] [place] [facility] [address] [id number] [place] [address]- 0936 Feb, [facility] [place] [facility] [address] [id number] [place] [address]- 6513 Feb, [facility] [place] [facility] [address] [id number] [place] [address]- 6701 Feb, [facility] [place] [facility] [address] [id number] [place] [address]- 2079 Feb, [facility] [place] [facility] [address] [id number] [place] [address]- 9755 Feb, [facility] [place] [facility] [address] [id number] [place] [address]- 2546 Feb, [facility] [address] [id number] [place] [address]- 9100 Feb, [facility] [place] [facility] [address] [id number] [place] [address]- 2546 Dec, [facility] [place] [facility] [address] [id number] [place] [address] 2546 Dec, [facility] [place] [facility] [address] [id number] [place] [address]- 0404 Nov, [facility] [place] [facility] [address] [id number] [place] [address]- 0051 Oct, [facility] [place] [facility] [address] [id number] [place] [address]- 9296 Oct, [facility] [place] [facility] [address] [id number] [place] [address]- 2650 August, [facility] [address] [id number] [place] [address]- 5743 August, [facility] [place] [facility] [address] [id number] [place] [address]- 9370 August, [facility] [address] [id number] [place] [address]- 6875 August, [facility] [place] [facility] [address] [id number] [place] [address]- 7689 Jul, [facility] [place] [facility] [address] [id number] [place] [address]- 4636 Jul, [facility] [place] [facility] [address] [id number] [place] [address]- 9184 Jun, [facility] [place] [facility] [address] [id number] [place] [address]- 2056 Jun, [facility] [place] [facility] [address] [id number] [place] 0795 Jun, [facility] [place] [facility] [address] [id number] [place] [address]- 5815 18 Jun, 2013 [facility] [place] [facility] [address] [id number] [place] [address]- 0614 18 Jun, 2013 [facility] [place] [facility] [address] [id number] [place] [address]- 0176 Jun, [facility] [place] [facility] [address] [id number] [place] [address]- 0198 Jun, [facility] [place] [facility] [address] [id number] [place] [address] Jun, [facility] [place] [facility] [address] [id number] [place] [address] Jun, [facility] [place] [facility] [address] [id number] [place] [address] Jun, [facility] [place] [facility] [address] [id number] [place] [address] Jun, [facility] [place] [facility] [address] [id number] [place] [address] Jun, [facility] [place] [facility] [address] [id number] [place] [address] Jun, [facility] [place] [facility] [address] [id number] [place] [address] Jun, [facility] [place] [facility] [address] [id number] [place] [address] Jun, [facility] [place] [facility] [address] [id number] [place] [address] Jun, [facility] [place] [facility] [address] [id number] [place] [address] Jun, [facility] [place] [facility] [address] [id number] [place] [address] Jun, [facility] [place] [facility] [address] [id number] [place] [address] Jun, [facility] [place] [facility] [address] [id number] [place] [address] 07 May, 2013 [facility] [place] [facility] [address] [id number] [place] [address] May, [facility] [place] [facility] [address] [id number] [place] [address] May, [facility] [place] [facility] [address] [id number] [place] [address] May, [facility] [place] [facility] [address] [id number] [place] [address] Apr, [facility] [place] [facility] [address] [id number] [place] [address] Apr, [facility] [address] [facility] [id number] [place] [address] Mar, [facility] [place] [facility] [address] [id number] [place] [address] Mar, [facility] [place] [facility] [address] [id number] [place] [address] Mar, [facility] [place] [facility] [address] [facility] [id number] [place] [address] Mar, [facility] [place] [facility] [address] [id number] [place] [address] Mar, [facility] [place] [facility] [address] [id number] [place] [address] Mar, [facility] [place] [facility] [address] [id number] [place] [address] Mar, [facility] [place] [facility] [address] [id number] [place] [address] Mar, [facility] [place] [facility] [address] [id number] [place] [address] Mar, [facility] [place] [facility] [address] [id number] [place] [address] Mar, [facility] [place] [facility] [address] [id number] [place] [address] Mar, [facility] [place] [facility] [address] [address] [id number] [place] [address] Feb, [facility] [place] [facility] [address] [id number] [place] [address] Feb, [facility] [place] [facility] [address] [id number] [place] [address] Jan, [facility] [place] [facility] [address] [id number] [place] [address] Jan, [facility] [place] [facility] [address] [id number] [place] [address] Jan, [facility] [place] [facility] [address] [id number] [place] [address] Nov, [facility] [place] [facility] [address] [id number] [place] [address] Oct, [facility] [place] [facility] [address] [id number] [place] [address] Oct, [facility] [place] [facility] [address] [id number] [place] [address] Oct, [facility] [place] [facility] [address] [id number] [place] [address] Oct, [facility] [place] [facility] [address] [id number] [place] [address] Oct, [facility] [place] [facility] [address] [id number] [place] [address] Oct, [facility] [place] [facility] [address] [id number] [place] [address] Oct, [facility] [place] [facility] [address] [id number] [place] [address] Oct, [facility] [address] [id number] [place] [address] Sep, [facility] [place] [facility] [address] [id number] [place] [address] Sep, [facility] [place] [facility] [address] [id number] [place] [address] Sep, [facility] [place] [facility] [address] [id number] [place] [address] Sep, [facility] [address] [id number] [place] [address] August, [facility] [place] [facility] [address] [id number] [place] [address] August, [facility] [address] [id number] [place] [address] August, [facility] [place] [facility] [address] [id number] [place] [address] August, [facility] [place] [facility] [address] [id number] [place] [address] August, [facility] [place] [facility] [address] [id number] [place] [address] August, [facility] [place] [facility] [address] [id number] [place] [address] Jul, [facility] [place] [facility] [address] [id number] [place] [address] May, [facility] [place] [facility] [address] [id number] [place] [address] Apr, [facility] [place] [facility] [address] [id number] [place] [address] Apr, [facility] [place] [facility] [address] [id number] [place] [address] Apr, [facility] [place] [facility] [address] [id number] [place] [address] Mar, [facility] [address] [id number] [place] [address] Mar, [facility] [place] [facility] [address] [id number] [place] [address] Mar, [facility] [address] [id number] [place] [address] Mar, [facility] [address] [id number] [place] [address] Jan, [facility] [address] [id number] [place] [address] Nov, [facility] [address] [id number] [place] [address] Sep, [facility] [address] [id number] [place] [address] August, [facility] [place] [facility] [address] [id number] [place] [address] August, [facility] [address] [id number] [place] [address] 30 Jul, 2011 [facility] [place] [facility] [address] [id number] [place] [address] Jul, [facility] [place] [facility] [address] [id number] [place] [address] Jul, [facility] [address] [id number] [place] [address] Jul, [facility] [place] [facility] [address] [id number] [place] [address] Jul, [facility] [address] [id number] [place] [address] Jun, [facility] [place] [facility] [address] [id number] [place] [address] Apr, [facility] [place] [address] [facility] [id number], [place] [address] Feb, [facility] [place] [address] [id number], [place] [address] Nov, [facility] [place] [address] [id number], [place] [address] Oct, [facility] [place] [address] [id number], [place] [address] Feb, [facility] [place] [address] [facility] [id number], [place] [address] August, [facility] [place] [id number], [place] [address] Jul, [facility] [place] [address] [id number], [place] [address] Jun, IMMUNIZATIONS No Known Immunizations SOCIAL HISTORY Never Assessed REASON FOR VISIT Medication List Updated PLAN OF CARE VITAL SIGNS MEDICATIONS Medication Instructions Dosage Frequency Start Date End Date Duration Status Magnesium 250 MG Orally twice a day 1 tablet with a meal 12h Active Aspirin 81 mg take 1 tablet (81 mg) by oral route once daily Sep, Active Folic Acid 0.8 mg Orally Once a day 1/2 tablet 24h Active Vitamin C 500 MG Active Oxygen Active Ferrous Sulfate 325 (65 Fe) MG Orally Once a day 2 tablets 24h Jun, Active Plavix 75 mg take 1 tablet (75 mg) by oral route once daily Sep, Active Ativan 1 MG Orally 2 times a day 1 tablet as needed 12h Jun, 28 days Active PredniSONE 10 mg Orally Once a day- taper 1 tablet Active Nitroglycerin 0.4 MG Active Isosorbide Mononitrate ER 30 MG TAKE ONE TABLET BY MOUTH IN THE MORNING 90 Active Pristiq 100 MG TAKE ONE TABLET BY MOUTH DAILY 90 Active Albuterol Sulfate 1.25 mg/3 mL inhale 3 milliliters via nebulizer by Inhalation route 4 times per day PRN as needed Dec, Active PredniSONE 10 MG Orally Once a day 24h Not-Taking Cetirizine HCl 10 MG Orally Once a day 1 tablet 24h Active Ipratropium-Albuterol 0.5-2.5 (3) MG/3ML Inhalation Four times a day 3 ml 6h Active Montelukast Sodium 10 mg Orally Once a day at bedtime 1 tablet in the evening Active Metoprolol Tartrate 25 mg take 1 tablet (25 mg) by oral route 2 times per day Sep, Active Trelegy Ellipta Inhalation Once a day 1 puff 24h Active RESULTS No Results PROCEDURES No Known [...]
--- OUTSIDE RECORDS SUMMARY | 2017-12-30 00:35 | XMS REPORT ---
Author Author CASEY SIMPSON Organization [facility] Address [address] [place] [address] Care Team Providers Care Scroll Shear Operator Name Role Phone CASEY SIMPSON Unavailable PROBLEMS Type Condition ICD9-CM Code GWB12-RO Code Onset Dates Condition Status SNOMED Code Problem Memory loss R41.3 Active 44613943 Problem Other emphysema J43.8 Active 46200516 Problem Irritable bowel syndrome with diarrhea K58.0 Active 071558410 Problem Chronic prescription benzodiazepine use Z79.899 Active 787924190 Problem Benign familial tremor G25.0 Active 210219112 Problem Other iron deficiency anemia D50.8 Active 94022844 Problem Reactive depression F32.9 Active 79730726 Problem Coarse tremors G25.2 Active 17932312 Problem Claustrophobia F40.240 Active 79782632 Problem Essential hypertension I10 Active 20489365 Problem Anxiety F41.9 Active 66550240 Problem Nicotine abuse Z72.0 Active 32854805 Problem Supplemental oxygen dependent Z99.81 Active 154825886359 Problem Chronic obstructive pulmonary disease with acute exacerbation J44.1 Active 060272451 Problem CAD (coronary artery disease) 414.00 Active 63917382 Problem Pulmonary emphysema, unspecified emphysema type J43.9 Active 81536978 ALLERGIES No Information ENCOUNTERS Encounter Location Date Diagnosis [facility] [address] [address] Nov, [facility] [id number] [place] [address] 43381- 3000 Nov, [facility] [address], [place] [address] 5[address] Oct, [facility] [address], [place] [address] 94[address] Oct, [facility] [id number] [place] [address] 81914- 1276 Oct, Anxiety F41.9 [place] [address] 90156- 5399 Sep, [place] [id number] [place] [address] 65788- 6788 Sep, [place] [address] 36362- 3605 Sep, Anxiety F41.9 [place] [id number] [place] [address] 73287- 1109 Sep, Pulmonary emphysema, unspecified emphysema type J43.9 ; Other iron deficiency anemia D50.8 ; Pain of toe of left foot M79.675 and Pain in right toe(s) M79.674 [place] [id number] [place] [address] 49859- 4840 Sep, Mouth pain K13.79 [place] [id number] [place] [address] 43880- 4991 Sep, Pain, dental K08.89 [place] [address] 59163- 9741 Sep, [place] [id number] [place] [address] 73617- 3098 Sep, Pulmonary emphysema, unspecified emphysema type J43.9 ; Nicotine abuse Z72.0 ; Diarrhea, unspecified type R19.7 ; Mouth pain K13.79 and Vision changes H53.9 [place] [id number] [place] [address] 06142- 4861 Sep, [place] [address] 98787- 9418 August, Anxiety F41.9 [place] [id number] [place] [address] 54364- 7443 Jul, Anxiety F41.9 [place] [id number] [place] [address] 47670- 6013 Jun, Pulmonary emphysema, unspecified emphysema type J43.9 and Anxiety F41.9 [facility] [id number] [place] [address] 35619- 4583 Jun, Anxiety F41.9 [facility] [id number] [place] [address] 56985- 7920 Jun, [facility] [id number] [place] [address] 26048- 1660 Jun, [facility] [address] 41228- 5477 Jun, [facility] [id number] [place] [address] 70957 -5717 Jun, Dysuria R30.0 and Acute cystitis with hematuria N30.01 [facility] [id number] [place] [address] 46572- 0132 May, Anxiety F41.9 and Chronic prescription benzodiazepine use Z79.899 [place] [address] 12219- 0175 May, Anxiety F41.9 and Chronic prescription benzodiazepine use Z79.899 [place] [id number] [place] [address] 16766- 3635 May, Benign familial tremor G25.0 [facility] [id number] [place] [address] 06069- 5185 Apr, Other iron deficiency anemia D50.8 [place] [address] 07315- 9591 Apr, Anxiety F41.9 [facility] [id number] [place] [address] 91840- 3610 Apr, [facility] [address] 38362- 9179 Apr, Pancreatic cyst K86.2 ; Other iron deficiency anemia D50.8 ; Pulmonary emphysema, unspecified emphysema type J43.9 ; Coarse tremors G25.2 and Claustrophobia F40.240 [place] [address] 73500- 9865 Apr, Anxiety F41.9 [place] [address] 65375- 9962 Mar, [place] [address] 50488- 9143 Mar, Anxiety F41.9 [place] [address] 65402- 0828 Feb, Anxiety F41.9 [place] [address] 88782- 5093 Jan, [place] [address] 24614- 7329 Jan, [place] [address] 86321- 7719 Jan, Anxiety F41.9 [place] [address] 00680- 3081 Jan, Pulmonary emphysema, unspecified emphysema type J43.9 ; Encounter for immunization Z23 ; Other iron deficiency anemia D50.8 ; Anxiety F41.9 ; Diarrhea, unspecified type R19.7 and Memory loss R41.3 [place] [id number] [place] [address] 06705- 3359 Dec, Anxiety F41.9 [place] [address] 89049- 6907 Dec, Irritable bowel syndrome with diarrhea K58.0 [place] [address] 20934- 9418 Dec, Diarrhea, unspecified type R19.7 [place] [id number] [place] [address] 64342- 0638 Nov, Acute non-recurrent maxillary sinusitis J01.00 ; Pulmonary emphysema, unspecified emphysema type J43.9 ; Diarrhea, unspecified type R19.7 and Other iron deficiency anemia D50.8 [facility] [id number] [place] [address] 79317- 4893 Nov, [facility] [address] 64342 -4491 Nov, Sore throat J02.9 and Strep pharyngitis J02.0 [place] [address] 89938- 9261 Nov, Other iron deficiency anemia D50.8 [place] [address] 06426- 2804 Nov, Anxiety F41.9 and Low hemoglobin D64.9 [place] [address] 52950- 5319 Oct, Anxiety F41.9 [place] [address] 56012- 4835 16 Sep, 2016 Anxiety F41.9 [place] [address] 51288- 4930 13 Sep, 2016 Left upper quadrant pain R10.12 [place] [id number] [place] [address] 67610- 9981 Sep, Other iron deficiency anemia D50.8 and Left upper quadrant pain R10.12 [place] [id number] [place] [address] 21377- 5245 August, Anxiety F41.9 [place] [id number] [place] [address] 19064- 5845 August, Other iron deficiency anemia D50.8 and Left upper quadrant pain R10.12 [place] [id number] [place] [address] 72661- 2849 Jul, Other iron deficiency anemia D50.8 ; Acute gastric ulcer with hemorrhage K25.0 and Anxiety F41.9 [place] [id number] [place] [address] 51151- 4958 Jul, Other iron deficiency anemia D50.8 ; Other fatigue R53.83 ; Nicotine abuse Z72.0 ; Anxiety F41.9 and Pulmonary emphysema, unspecified emphysema type J43.9 [place] [address] 36201- 1447 Jun, Other iron deficiency anemia D50.8 and Hematochezia K92.[address] 79215- 9272 Jun, Other fatigue R53.83 and Other iron deficiency anemia D50.[address] 79074- 5832 Jun, Other fatigue R53.83 [place] [address] 04881- 0348 Jun, Other iron deficiency anemia D50.8 ; Nicotine abuse Z72.0 ; Anxiety F41.9 and Pulmonary emphysema, unspecified emphysema type J43.9 [place] [id number] [place] [address] 00433- 4643 17 Jun, 2016 Low hemoglobin D64.9 [place] [id number] [place] [address] 87521- 6192 16 Jun, 2016 Low hemoglobin D64.9 [place] [address] 60473- 9059 14 Jun, 2016 Anxiety F41.9 ; Nicotine abuse Z72.0 and Reactive depression F32.9 [place] [id number] [place] [address] 14156- 6863 09 Jun, 2016 Anxiety F41.9 [place] [address] 73232- 8575 May, Anxiety F41.9 ; Nicotine abuse Z72.0 and Reactive depression F32.9 [facility] [id number] [place] [address] 68956- 9105 May, Anxiety F41.9 [facility] [id number] [place] [address] 69645- 4402 May, Anxiety F41.9 ; Nicotine abuse Z72.0 and Reactive depression F32.9 [facility] [id number] [place] [address] 66909- 9519 May, [place] [address] 24013- 6870 May, [place] [id number] [place] [address] 85263- 9956 May, Anxiety F41.9 [place] [address] 70203- 8656 May, Other emphysema J43.8 ; Cramping of hands R25.2 ; Irritable bowel syndrome with diarrhea K58.0 ; Breast cancer screening Z12.39 ; Candidal stomatitis B37.0 and Candidal esophagitis B37.81 [place] [id number] [place] [address] 52520- 6460 Apr, Anxiety F41.9 [place] [id number] [place] [address] 12603- 2502 Mar, Anxiety F41.9 [place] [id number] [place] [address] 50046- 0991 Feb, Anxiety F41.9 [place] [id number] [place] [address] 09566- 9830 Jan, Anxiety F41.9 [place] [id number] [place] [address] 06739- 6730 Jan, Anxiety F41.9 [place] [id number] [place] [address] 05365- 1864 Jan, Anxiety F41.9 [facility] [id number] [place] [address] 45858- 1040 Jan, Anxiety F41.9 ; Nicotine abuse Z72.0 ; Pulmonary emphysema, unspecified emphysema type J43.9 ; Memory loss R41.3 and Abdominal pain, unspecified location R10.9 [facility] [id number] [place] [address] 21317- 5088 Jan, [facility] [id number] [place] [address] 15445- 5690 Dec, Anxiety F41.9 [facility] [id number] [place] [address] 46020 -0535 Dec, Right arm pain M79.601 [facility] [id number] [place] [address] 24681- 1654 Nov, Anxiety F41.9 [facility] [id number] [place] [address] 08125- 7827 Oct, Anxiety F41.9 [facility] [id number] [place] [address] 20773- 4243 Oct, [facility] [id number] [place] [address] 26765- 6375 Sep, Anxiety F41.9 [facility] [id number] [place] [address] 40432- 3763 Sep, Left lower quadrant pain R10.32 ; Memory loss R41.3 and Basal cell carcinoma of skin, unspecified C44.91 [facility] [id number] [place] [address] 86938- 9336 Sep, Anxiety F41.9 [facility] [id number] [place] [address] 12080- 7827 August, Anxiety F41.9 [facility] [id number], [place] [address]- 2663 August, Left lower quadrant pain R10.32 ; Memory loss R41.3 ; Pulmonary emphysema, unspecified emphysema type J43.9 and Depression, unspecified depression type F32.9 [facility] [address] [address]- 8322 August, [facility] [id number] [place] [address] 25366- 7317 Jul, [facility] [id number] [place] [address] 53012- 1474 Jun, [facility] [id number] [place] [address] 96166- 1279 May, [facility] [id number] [place] [address] 89919- 2824 Apr, [facility] [id number] [place] [address] 28266- 7461 Apr, Chronic obstructive pulmonary disease with acute exacerbation J44.1 ; Anxiety F41.9 and Nicotine abuse Z72.0 [facility] [id number] [place] [address] 57781- 0137 Apr, [facility] [address] [place] [address] 73347- 8003 Mar, Anxiety disorder, unspecified F41.9 [facility] [address], [place] [address]- 3841 Mar, [facility] [address], [place] [address]- 0739 Feb, [facility] [id number] [place] [address] 78399- 0403 Nov, [facility] [address], [place] [address]- 7843 Nov, [facility] [id number] [place] [address] 93520- 1023 Nov, Basal cell carcinoma 173.91 and Astigmatism with presbyopia 367.20 [facility] [id number] [place] [address] 10091- 8075 Oct, [facility] [id number] [place] [address] 85222- 0609 Oct, Lipoma 214.9 [facility] [address] 79972- 1049 Sep, Ganglion cyst 727.43 ; Chronic airway obstruction, not elsewhere classified 496 ; Hypertension 401.9 ; CAD (coronary artery disease) 414.00 and Dysthymia 300.4 [facility] [id number] [place] [address] 52147- 1482 Jul, [facility] [id number] [place] [address] 47630- 0647 Jul, [facility] [id number] [place] [address] 74996- 2672 Jun, [facility] [id number] [place] [address] 39675- 0643 Jun, [facility] [id number] [place] [address] 56413- 0177 Jun, [facility] [id number] [place] [address] 49192- 3593 Jun, [facility] [id number] [place] [address] 99376- 2592 May, [facility] [id number] [place] [address] 38400- 4755 May, [facility] [id number] [place] [address] 422120- 8258 Mar, [facility] [id number] [place] [address] 799462- 3897 Mar, [facility] [id number] [place] [address], [place] [address]- 3182 05 Mar, 2014 [facility] [place] [facility] [address] [id number] [place] [address]- 2831 05 Mar, 2014 [facility] [place] [facility] [address] [id number] [place] [address]- 3646 Feb, [facility] [place] [facility] [address] [id number] [place] [address]- 7741 Feb, [facility] [place] [facility] [address] [id number] [place] [address]- 3535 Feb, [facility] [place] [facility] [address] [id number] [place] [address]- 4377 Feb, [facility] [place] [facility] [address] [id number] [place] [address]- 1113 Feb, [facility] [place] [facility] [address] [id number] [place] [address]- 8827 Feb, [facility] [place] [facility] [address] [id number] [place] [address]- 0448 Feb, [facility] [place] [facility] [address] [id number] [place] [address]- 4023 Feb, [facility] [place] [facility] [address] [id number] [place] [address]- 1751 Feb, [facility] [place] [facility] [address] [id number] [place] [address]- 3839 Feb, [facility] [place] [facility] [address] [id number] [place] [address]- 9497 Dec, [facility] [place] [facility] [address] [id number] [place] [address]- 0339 Dec, [facility] [place] [facility] [address] [id number] [place] [address]- 7072 Nov, [facility] [place] [facility] [address] [id number] [place] [address]- 6230 Oct, [facility] [place] [facility] [address] [id number] [place] [address]- 8287 Oct, [facility] [place] [facility] [address] [id number] [place] [address]- 4661 August, [facility] [place] [facility] [address] [id number] [place] [address]- 4475 August, [facility] [place] [facility] [address] [id number] [place] [address]- 1070 August, [facility] [place] [facility] [address] [id number] [place] [address]- 7247 August, [facility] [place] [facility] [address] [id number] [place] [address]- 6513 Jul, [facility] [place] [facility] [address] [id number] [place] [address]- 4716 Jul, [facility] [place] [facility] [address] [id number] [place] [address]- 6776 Jun, [facility] [place] [facility] [address] [id number] [place] [address]- 0900 Jun, [facility] [place] [facility] [address] [id number] [place] [address]- 3093 Jun, [facility] [place] [facility] [address] [id number] [place] [address]- 6652 Jun, [facility] [place] [facility] [address] [id number] [place] [address]- 1507 Jun, [facility] [place] [facility] [address] [id number] [place] [address]- 9832 Jun, [facility] [place] [facility] [address] [id number] [place] [address]- 8289 Jun, [facility] [place] [facility] [address] [id number] [place] [address]- 9684 Jun, [facility] [place] [facility] [address] [id number] [place] [address]- 9404 10 Jun, 2013 [facility] [place] [facility] [address] [id number] [place] [address]- 6862 10 Jun, 2013 [facility] [place] [facility] [address] [id number] [place] [address]- 3102 Jun, [facility] [place] [facility] [address] [id number] [place] [address]- 7595 Jun, [facility] [place] [facility] [address] [id number] [place] [address]- 2844 Jun, [facility] [place] [facility] [address] [id number] [place] [address]- 2805 Jun, [facility] [place] [facility] [address] [id number] [place] [address]- 8535 Jun, [facility] [place] [facility] [address] [id number] [place] [address]- 0843 Jun, [facility] [place] [facility] [address] [id number] [place] [address]- 7040 Jun, [facility] [place] [facility] [address] [id number] [place] [address]- 0490 Jun, [facility] [place] [facility] [address] [id number] [place] [address]- 2076 Jun, [facility] [place] [facility] [address] [id number] [place] [address]- 7632 May, [facility] [place] [facility] [address] [id number] [place] [address]- 5104 May, [facility] [place] [facility] [address] [id number] [place] [address]- 9726 May, [facility] [place] [facility] [address] [id number] [place] [address]- 7509 May, [facility] [place] [facility] [address] [id number] [place] [address]- 1110 Apr, [facility] [place] [facility] [address] [id number] [place] [address]- 5063 Apr, [facility] [address] [id number] [place] [address]- 4245 Mar, [facility] [place] [facility] [address] [id number] [place] [address]- 2920 Mar, [facility] [address] [id number] [place] [address]- 2599 Mar, [facility] [place] [facility] [address] [id number] [place] [address]- 9267 Mar, [facility] [address] [id number] [place] [address]- 8728 Mar, [facility] [address] [id number] [place] [address] Mar, [facility] [address] [id number] [place] [address] Mar, [facility] [address] [id number] [place] [address] Mar, [facility] [address] [id number] [place] [address] Mar, [facility] [address] [id number] [place] [address] Mar, [facility] [place] [facility] [address] [id number] [place] [address] Mar, [facility] [place] [facility] [address] [id number] [place] [address] Feb, [facility] [place] [facility] [address] [id number] [place] [address] Feb, [facility] [place] [facility] [address] [id number] [place] [address] Jan, [facility] [place] [facility] [address] [id number] [place] [address] Jan, [facility] [place] [facility] [address] [id number] [place] [address] Jan, [facility] [place] [facility] [address] [id number] [place] [address] Nov, [facility] [place] [facility] [address] [id number] [place] [address] Oct, [facility] [place] [facility] [address] [id number] [place] [address] Oct, [facility] [place] [facility] [address] [id number] [place] [address] Oct, [facility] [place] [facility] [address] [id number] [place] [address] Oct, [facility] [place] [facility] [address] [id number] [place] [address]- [address] Oct, [facility] [place] [facility] [address] [id number] [place] [address] Oct, [facility] [place] [facility] [address] [id number] [place] [address] Oct, [facility] [place] [facility] [address] [id number] [place] [address] Oct, [facility] [place] [facility] [address] [id number] [place] [address] Sep, [facility] [place] [facility] [address] [id number] [place] [address]- [address] Sep, [facility] [place] [facility] [address] [id number] [place] [address] Sep, [facility] [place] [facility] [address] [id number] [place] [address]- [address] Sep, [facility] [place] [facility] [address] [id number] [place] [address] August, [facility] [place] [facility] [address] [id number] [place] [address] August, [facility] [address] [id number] [place] [address] August, [facility] [address] [id number] [place] [address] August, [facility] [address] [id number] [place] [address] August, [facility] [address] [id number] [place] [address] August, [facility] [address] [id number] [place] [address] Jul, [facility] [address] [id number] [place] [address] May, [facility] [address] [id number] [place] [address] Apr, [facility] [address] [id number] [place] [address] Apr, [facility] [address] [id number] [place] [address] Apr, [facility] [address] [id number] [place] [address] Mar, [facility] [address] [id number] [place] [address] Mar, [facility] [place] [facility] [address] [id number] [place] [address] Mar, [facility] [place] [facility] [address] [id number] [place] [address] Mar, [facility] [place] [facility] [address] [id number] [place] [address] Jan, [facility] [address] [id number] [place] [address] Nov, [facility] [place] [facility] [address] [id number] [place] [address] Sep, [facility] [place] [facility] [address] [id number] [place] [address] August, [facility] [place] [facility] [address] [id number] [place] [address] August, [facility] [place] [facility] [address] [id number] [place] [address] Jul, [facility] [address] [id number] [place] [address] Jul, [facility] [place] [facility] [address] [id number] [place] [address] Jul, [facility] [address] [id number] [place] [address] Jul, [facility] [address] [id number] [place] [address] Jul, [facility] [address] [id number] [place] [address] Jun, [facility] [address] [id number] [place] [address] Apr, [facility] [place] [facility] [address] [id number] [place] [address] Feb, [facility] [place] [facility] [address] [id number] [place] [address] Nov, [facility] [place] [facility] [address] [id number] [place] [address] Oct, [facility] [place] [facility] [address] [id number] [place] [address] Feb, [facility] [place] [facility] [address] [id number] [place] [address] August, [facility] [place] [facility] [address] [id number] [place] [address] Jul, [facility] [address] [facility] [id number] [place] [address] Jun, IMMUNIZATIONS No Known Immunizations SOCIAL HISTORY Never Assessed REASON FOR VISIT Controlled Med Refill 08/09/2017 PLAN OF CARE VITAL SIGNS MEDICATIONS Medication [...]
--- OUTSIDE RECORDS SUMMARY | 2017-12-30 00:35 | XMS REPORT ---
Author Author CASEY SIMPSON Organization [facility] Address [address] [place] [address] Care Team Providers Care Electric Power Line Examiner Name Role Phone CASEY SIMPSON Unavailable PROBLEMS Type Condition ICD9-CM Code ATV88-KZ Code Onset Dates Condition Status SNOMED Code Problem Other emphysema J43.8 Active 37211433 Problem Other iron deficiency anemia D50.8 Active 36865933 Problem Reactive depression F32.9 Active 29247486 Problem Atherosclerotic heart disease of [place] coronary artery without angina pectoris I25.10 Active 193520388284708 Problem Dysthymic disorder F34.1 Active 73934654 Problem Coarse tremors G25.2 Active 03090960 Problem Claustrophobia F40.240 Active 79358252 Problem Chronic prescription benzodiazepine use Z79.899 Active 265189580 Problem Benign familial tremor G25.0 Active 843149891 Problem Essential hypertension I10 Active 54983186 Problem CAD (coronary artery disease) 414.00 Active 28582119 Problem Supplemental oxygen dependent Z99.81 Active 990281327060 Problem Anxiety F41.9 Active 44896982 Problem Pulmonary emphysema, unspecified emphysema type J43.9 Active 06204708 Problem Nicotine abuse Z72.0 Active 67222405 Problem Memory loss R41.3 Active 97252033 Problem Chronic obstructive pulmonary disease with acute exacerbation J44.1 Active 452669664 Problem Irritable bowel syndrome with diarrhea K58.0 Active 705908795 ALLERGIES No Information ENCOUNTERS Encounter Location Date Diagnosis [facility] [address] [facility] [id number] [address] Nov, [facility] [address] [id number] [address] Nov, Pulmonary emphysema, unspecified emphysema type J43.9 ; Therapeutic drug monitoring Z51.81 ; Anxiety F41.9 ; Atherosclerotic heart disease of [place] coronary artery without angina pectoris I25.10 ; Dysthymic disorder F34.1 ; Encounter for screening mammogram for breast cancer Z12.31 and Encounter for immunization Z23 [place] [address] [address]- 7367 Nov, Anxiety F41.9 [place] [address] 58963- 7016 Oct, [place] [address] 75053- 9768 Oct, [place] [address] 93814- 7860 Oct, Anxiety F41.9 [place] [address] 06925- 2027 Sep, [place] [address] 20279- 5562 Sep, [place] [address] 96546- 8188 Sep, Anxiety F41.9 [place] [address] 71382- 3641 Sep, Pulmonary emphysema, unspecified emphysema type J43.9 ; Other iron deficiency anemia D50.8 ; Pain of toe of left foot M79.675 and Pain in right toe(s) M79.674 [place] [address] [place] [id number] [place] [address] 93569- 3226 Sep, Mouth pain K13.79 [place] [address] 74270- 1255 04 Sep, 2017 Pain, dental K08.89 [place] [address] [place] [id number] [place] [address] 15480- 0556 Sep, [place] [address] [place] [id number] [place] [address] 01817- 2526 Sep, Pulmonary emphysema, unspecified emphysema type J43.9 ; Nicotine abuse Z72.0 ; Diarrhea, unspecified type R19.7 ; Mouth pain K13.79 and Vision changes H53.9 [facility] [address] 00204- 4288 Sep, [facility] [address] 53792- 8036 August, Anxiety F41.9 [facility] [address] 56114- 2884 Jul, Anxiety F41.9 [place] [address] 68397- 8706 Jun, Pulmonary emphysema, unspecified emphysema type J43.9 and Anxiety F41.9 [place] [address] 16627- 8697 Jun, Anxiety F41.9 [place] [address] 28100- 7364 Jun, [facility] [address] 77691- 4147 Jun, [place] [address] 26880- 1774 Jun, [facility] [address] 97844 -3689 Jun, Dysuria R30.0 and Acute cystitis with hematuria N30.01 [facility] [id number] [place] [address] 21558- 9662 May, Anxiety F41.9 and Chronic prescription benzodiazepine use Z79.899 [place] [address] 83610- 5430 May, Anxiety F41.9 and Chronic prescription benzodiazepine use Z79.899 [place] [address] [place] [id number] [place] [address] 89078- 6230 May, Benign familial tremor G25.0 [facility] [id number] [place] [address] 03603- 5466 Apr, Other iron deficiency anemia D50.8 [place] [address] [place] [address] [id number] [place] [address] 79928- 4009 Apr, Anxiety F41.9 [place] [address] 24099- 8208 Apr, [place] [address] 14157- 0203 Apr, Pancreatic cyst K86.2 ; Other iron deficiency anemia D50.8 ; Pulmonary emphysema, unspecified emphysema type J43.9 ; Coarse tremors G25.2 and Claustrophobia F40.240 [place] [address] 89244- 4080 Apr, Anxiety F41.9 [place] [address] 36449- 0794 Mar, [place] [address] 00261- 2380 Mar, Anxiety F41.9 [place] [address] [place] [id number] [place] [address] 96840- 4061 Feb, Anxiety F41.9 [place] [address] [place] [id number] [place] [address] 60195- 1187 Jan, [place] [address] 15442- 6347 Jan, [place] [address] 94168- 2447 Jan, Anxiety F41.9 [place] [address] [place] [id number] [place] [address] 70827- 6886 Jan, Pulmonary emphysema, unspecified emphysema type J43.9 ; Encounter for immunization Z23 ; Other iron deficiency anemia D50.8 ; Anxiety F41.9 ; Diarrhea, unspecified type R19.7 and Memory loss R41.3 [place] [address] [place] [id number] [place] [address] 27001- 4975 12 Dec, 2016 Anxiety F41.9 [place] [address] [place] [address] [id number] [place] [address] 80536- 9858 07 Dec, 2016 Irritable bowel syndrome with diarrhea K58.0 [place] [address] 23500- 0416 05 Dec, 2016 Diarrhea, unspecified type R19.7 [place] [address] [place] [id number] [place] [address] 17672- 9372 30 Nov, 2016 Acute non-recurrent maxillary sinusitis J01.00 ; Pulmonary emphysema, unspecified emphysema type J43.9 ; Diarrhea, unspecified type R19.7 and Other iron deficiency anemia D50.8 [place] [address] [place] [id number] [place] [address] 58791- 3155 Nov, [facility] [address] [id number] [place] [address] 50490 -3570 Nov, Sore throat J02.9 and Strep pharyngitis J02.0 [place] [address] [place] [id number] [place] [address] 87075- 1299 Nov, Other iron deficiency anemia D50.8 [place] [address] [place] [id number] [place] [address] 62767- 5977 Nov, Anxiety F41.9 and Low hemoglobin D64.9 [place] [address] [place] [id number] [place] [address] 14643- 5876 Oct, Anxiety F41.9 [place] [address] 52501- 7685 16 Sep, 2016 Anxiety F41.9 [place] [address] [place] [id number] [place] [address] 63189- 3098 13 Sep, 2016 Left upper quadrant pain R10.12 [place] [address] [place] [address] [id number] [address]- 4915 07 Sep, 2016 Other iron deficiency anemia D50.8 and Left upper quadrant pain R10.12 [place] [address] [place] [id number] [place] [address] 46982- 2617 17 Aug, 2016 Anxiety F41.9 [place] [address] [place] [id number] [place] [address] 89121- 1156 August, Other iron deficiency anemia D50.8 and Left upper quadrant pain R10.12 [place] [address] [place] [id number] [place] [address] 24727- 4362 Jul, Other iron deficiency anemia D50.8 ; Acute gastric ulcer with hemorrhage K25.0 and Anxiety F41.9 [place] [address] [place] [address] 44342- 4406 18 Jul, 2016 Other iron deficiency anemia D50.8 ; Other fatigue R53.83 ; Nicotine abuse Z72.0 ; Anxiety F41.9 and Pulmonary emphysema, unspecified emphysema type J43.9 [place] [address] [place] [id number] [place] [address] 34557- 6217 31 Jun, 2016 Other iron deficiency anemia D50.8 and Hematochezia K92.1 [place] [address] [place] [address] 25850- 8530 Jun, Other fatigue R53.83 and Other iron deficiency anemia D50.8 [place] [address] [place] [address] 29046- 6313 Jun, Other fatigue R53.83 [place] [address] [place] [address] 64976- 1983 Jun, Other iron deficiency anemia D50.8 ; Nicotine abuse Z72.0 ; Anxiety F41.9 and Pulmonary emphysema, unspecified emphysema type J43.9 [place] [address], [place] [address]- 2488 17 Jun, 2016 Low hemoglobin D64.9 [place] [address] [place] [id number] [place] [address] 15011- 9471 16 Jun, 2016 Low hemoglobin D64.9 [place] [address] 37842- 8840 14 Jun, 2016 Anxiety F41.9 ; Nicotine abuse Z72.0 and Reactive depression F32.9 [place] [address] 99848- 5569 Jun, Anxiety F41.9 [place] [address] 48452- 6205 May, Anxiety F41.9 ; Nicotine abuse Z72.0 and Reactive depression F32.9 [place] [address] 00240- 2768 May, Anxiety F41.9 [place] [address] 36165- 5968 May, Anxiety F41.9 ; Nicotine abuse Z72.0 and Reactive depression F32.9 [place] [address] 99912- 6239 May, [place] [address] 54326- 3566 May, [place] [address] [place] [id number] [place] [address] 50014- 7689 May, Anxiety F41.9 [place] [address] 50383- 1045 May, Other emphysema J43.8 ; Cramping of hands R25.2 ; Irritable bowel syndrome with diarrhea K58.0 ; Breast cancer screening Z12.39 ; Candidal stomatitis B37.0 and Candidal esophagitis B37.81 [place] [address] [place] [id number] [place] [address] 69258- 9039 Apr, Anxiety F41.9 [place] [address] [place] [address]- 0683 Mar, Anxiety F41.9 [facility] [id number] [place] [address] 02772- 0668 Feb, Anxiety F41.9 [facility] [id number] [place] [address] 79564- 4234 Jan, Anxiety F41.9 [facility] [address] 23899- 8313 Jan, Anxiety F41.9 [facility] [id number] [place] [address] 50383- 0413 Jan, Anxiety F41.9 [facility] [id number] [place] [address] 70957- 4167 Jan, Anxiety F41.9 ; Nicotine abuse Z72.0 ; Pulmonary emphysema, unspecified emphysema type J43.9 ; Memory loss R41.3 and Abdominal pain, unspecified location R10.9 [facility] [id number] [place] [address] 27136- 3388 Jan, [facility] [id number] [place] [address] 40966- 0884 Dec, Anxiety F41.9 [facility] [id number] [place] [address] 39817 -7705 Dec, Right arm pain M79.601 [facility] [id number] [place] [address] 92651- 5123 Nov, Anxiety F41.9 [facility] [id number] [place] [address] 50363- 8822 Oct, Anxiety F41.9 [facility] [id number] [place] [address] 53796- 2572 Oct, [facility] [id number] [place] [address] 15072- 3778 Sep, Anxiety F41.9 [facility] [address], [place] [address]- 6509 Sep, Left lower quadrant pain R10.32 ; Memory loss R41.3 and Basal cell carcinoma of skin, unspecified C44.91 [facility] [address], [place] [address]- 1971 Sep, Anxiety F41.9 [facility] [address] [id number] [place] [address] 86308- 1128 August, Anxiety F41.9 [facility] [address] [place] [address] [id number] [place] [address] 28641- 4577 August, Left lower quadrant pain R10.32 ; Memory loss R41.3 ; Pulmonary emphysema, unspecified emphysema type J43.9 and Depression, unspecified depression type F32.9 [place] [address] [place] [address] 30113- 3180 August, [facility] [address] [place] [address] 80666- 2776 Jul, [facility] [address] [id number] [place] [address] 68424- 1912 Jun, [facility] [address] [place] [address] 08468- 4852 May, [facility] [address], [place] [address]- 8194 Apr, [facility] [address] [id number] [place] [address] 43403- 1648 Apr, Chronic obstructive pulmonary disease with acute exacerbation J44.1 ; Anxiety F41.9 and Nicotine abuse Z72.0 [facility] [address] [place] [address] 50507- 3247 Apr, [facility] [address], [place] [address]- 1712 Mar, Anxiety disorder, unspecified F41.9 [facility] [address] [address]- 9706 Mar, [facility] [id number] [place] [address] 59527- 6845 Feb, [facility] [address] [address]- 7794 Nov, [facility] [id number] [place] [address] 24254- 0651 Nov, [facility] [id number] [place] [address] 16954- 8659 Nov, Basal cell carcinoma 173.91 and Astigmatism with presbyopia 367.20 [facility] [id number] [place] [address] 47980- 3686 Oct, [facility] [id number] [place] [address] 69693- 9948 Oct, Lipoma 214.9 [facility] [id number] [place] [address] 03042- 9159 Sep, Ganglion cyst 727.43 ; Chronic airway obstruction, not elsewhere classified 496 ; Hypertension 401.9 ; CAD (coronary artery disease) 414.00 and Dysthymia 300.4 [facility] [address], [place] [address]- 3040 Jul, [facility] [address], [place] [address]- 5142 Jul, [facility] [address], [place] [address]- 6097 Jun, [facility] [id number] [place] [address] 92056- 6810 Jun, [facility] [id number] [place] [address] 97649- 4966 Jun, [facility] [address], [place] [address]- 0962 Jun, [facility] [place] [facility] [address] [id number] [place] [address]- 0296 May, [facility] [place] [facility] [address] [id number] [place] [address]- 9496 May, [facility] [place] [facility] [address] [id number] [place] [address]- 1345 Mar, [facility] [place] [facility] [address] [id number] [place] [address]- 9004 Mar, [facility] [place] [facility] [address] [id number] [place] [address]- 2495 Mar, [facility] [place] [facility] [address] [id number] [place] [address]- 5989 Mar, [facility] [place] [facility] [address] [id number] [place] [address]- 0889 Feb, [facility] [place] [facility] [address] [id number] [place] [address]- 8285 Feb, [facility] [place] [facility] [address] [id number] [place] [address]- 0346 Feb, [facility] [place] [facility] [address] [id number] [place] [address]- 8890 Feb, [facility] [place] [facility] [address] [id number] [place] [address]- 1137 Feb, [facility] [place] [facility] [address] [id number] [place] [address]- 2934 Feb, [facility] [place] [facility] [address] [id number] [place] [address]- 6409 Feb, [facility] [place] [facility] [address] [id number] [place] [address]- 1950 Feb, [facility] [place] [facility] [address] [id number] [place] [address]- 6291 Feb, [facility] [place] [facility] [address] [id number] [place] [address]- 1106 Feb, [facility] [place] [facility] [address] [id number] [place] [address]- 9562 Dec, [facility] [place] [facility] [address] [id number] [place] [address]- 5486 Dec, [facility] [place] [facility] [address] [id number] [place] [address]- 4192 Nov, [facility] [place] [facility] [address] [id number] [place] [address]- 9981 Oct, [facility] [place] [facility] [address] [id number] [place] [address]- 3002 Oct, [facility] [place] [facility] [address] [id number] [place] [address]- 6241 August, [facility] [place] [facility] [address] [id number] [place] [address]- 7783 August, [facility] [place] [facility] [address] [id number] [place] [address]- 2102 August, [facility] [place] [facility] [address] [id number] [place] [address]- 8892 August, [facility] [place] [facility] [address] [id number] [place] [address]- 9248 Jul, [facility] [place] [facility] [address] [id number] [place] [address]- 3819 Jul, [facility] [place] [facility] [address] [id number] [place] [address]- 1937 Jun, [facility] [place] [facility] [address] [id number] [place] [address]- 2416 Jun, [facility] [place] [facility] [address] [id number] [place] [address]- 5572 Jun, [facility] [place] [facility] [address] [id number] [place] [address]- 2601 Jun, [facility] [place] [facility] [address] [id number] [place] [address]- 5100 18 Jun, 2013 [facility] [place] [facility] [address] [id number] [place] [address]- 9924 Jun, [facility] [place] [facility] [address] [id number] [place] [address]- 5388 Jun, [facility] [place] [facility] [address] [id number] [place] [address]- 7739 10 Jun, 2013 [facility] [place] [facility] [address] [id number] [place] [address]- 0563 10 Jun, 2013 [facility] [place] [facility] [address] [id number] [place] [address]- 1558 10 Jun, 2013 [facility] [place] [facility] [address] [id number] [place] [address]- 0831 Jun, [facility] [place] [facility] [address] [id number] [place] [address]- 6836 Jun, [facility] [place] [facility] [address] [id number] [place] [address]- 7062 06 Jun, 2013 [facility] [place] [facility] [address] [id number] [place] [address]- 1530 Jun, [facility] [place] [facility] [address] [id number] [place] [address]- 0625 Jun, [facility] [place] [facility] [address] [id number] [place] [address]- 1959 04 Jun, 2013 [facility] [place] [facility] [address] [id number] [place] [address]- 1193 04 Jun, 2013 [facility] [place] [facility] [address] [id number] [place] [address]- 8055 03 Jun, 2013 [facility] [place] [facility] [address] [id number] [place] [address]- 8059 Jun, [facility] [place] [facility] [address] [id number] [place] [address]- 2804 07 May, 2013 [facility] [address] [id number] [place] [address]- 5718 May, [facility] [place] [facility] [address] [id number] [place] [address] May, [facility] [place] [facility] [address] [id number] [place] [address] May, [facility] [place] [facility] [address] [id number] [place] [address] Apr, [facility] [place] [facility] [address] [id number] [place] [address] Apr, [facility] [place] [facility] [address] [id number] [place] [address] Mar, [facility] [place] [facility] [address] [facility] [id number] [place] [address] Mar, [facility] [place] [facility] [address] [id number], [place] [address] Mar, [facility] [place] [facility] [address] [id number] [place] [address] Mar, [facility] [place] [facility] [address] [facility] [id number] [place] [address] Mar, [facility] [place] [facility] [address] [facility] [id number], [place] [address] Mar, [facility] [place] [facility] [address] [id number], [place] [address] Mar, [facility] [place] [facility] [address] [id number] [place] [address] Mar, [facility] [place] [facility] [address] [id number], [place] [address] Mar, [facility] [place] [facility] [address] [facility] [id number] [place] [address] Mar, [facility] [place] [facility] [address] [id number] [place] [address] Mar, [facility] [address] [id number] [place] [address] Feb, [facility] [place] [facility] [address] [id number] [place] [address] Feb, [facility] [place] [facility] [address] [id number] [place] [address] 164[address] Jan, [facility] [place] [facility] [address] [id number] [place] [address] Jan, [facility] [place] [facility] [address] [id number] [place] [address] Jan, [facility] [place] [facility] [address] [id number] [place] [address] Nov, [facility] [place] [facility] [address] [id number] [place] [address] Oct, [facility] [place] [facility] [address] [id number] [place] [address]- [address] Oct, [facility] [place] [facility] [address] [id number] [place] [address] Oct, [facility] [place] [facility] [address] [id number] [place] [address] Oct, [facility] [place] [facility] [address] [id number] [place] [address] Oct, [facility] [place] [facility] [address] [id number] [place] [address] Oct, [facility] [place] [facility] [address] [id number] [place] [address] Oct, [facility] [place] [facility] [address] [id number] [place] [address] Oct, [facility] [place] [facility] [address] [id number] [place] [address] Sep, [facility] [place] [facility] [address] [id number] [place] [address] Sep, [facility] [address] [id number] [place] [address] Sep[facility] [address] [id number] [place] [address] Sep, [facility] [address] [id number] [place] [address] August, [facility] [address] [id number] [place] [address] August, [facility] [address] [id number] [place] [address] August, [facility] [address] [id number] [place] [address] August, [facility] [address] [id number] [place] [address] August, [facility] [address] [id number] [place] [address] August, [facility] [address] [id number] [place] [address] Jul, [facility] [address] [id number] [place] [address] May, [facility] [address] [id number] [place] [address] Apr, [facility] [address] [id number] [place] [address] Apr, [facility] [facility] [address] [id number] [place] [address] Apr, [facility] [address] [id number] [place] [address] Mar, [facility] [address] [id number] [place] [address] Mar, [facility] [place] [facility] [address] [id number] [place] [address] Mar, [facility] [place] [facility] [address] [id number] [place] [address] Mar, [facility] [place] [facility] [address] [id number] [place] [address] Jan, [facility] [place] [facility] [address] [id number] [place] [address] Nov, [facility] [place] [facility] [address] [id number] [place] [address] Sep, [facility] [place] [facility] [address] [id number] [place] [address] August, [facility] [place] [facility] [address] [id number] [place] [address] August, [facility] [place] [facility] [address] [id number] [place] [address] Jul, [facility] [place] [facility] [address] [id number] [place] [address] Jul, [facility] [place] [facility] [address] [id number] [place] [address] Jul, [facility] [place] [facility] [address] [id number] [place] [address] Jul, [facility] [place] [facility] [address] [id number] [place] [address] Jul, [facility] [place] [facility] [address] [id number] [place] [address] Jun, [facility] [place] [facility] [address] [id number] [place] [address] Apr, [facility] [place] [facility] [address] [id number] [place] [address] Feb, [facility] [place] [facility] [address] [facility] [id number] [place] [address] 11 Nov, 2010 [facility] [address] [id number] [address] 14 Oct, 2010 [facility] [address] [id number], [place] [address] 10 Feb, 2010 [facility] [address] [id number], [place] [address] August, [facility] [id number] [id number] Jul, [facility] [address] [id number], [place] [address] 10 Jun, 2008 IMMUNIZATIONS No Known Immunizations SOCIAL HISTORY Never Assessed REASON FOR VISIT Controlled Med Refill 09/06/17 PLAN OF CARE VITAL SIGNS MEDICATIONS Medication [...]
--- OUTSIDE RECORDS SUMMARY | 2017-12-30 00:36 | XMS REPORT ---
Author Author CASEY SIMPSON Organization [facility] Address [address] [place] [address] Care Team Providers Care Clinical Appeals Rn Name Role Phone CASEY SIMPSON Unavailable PROBLEMS Type Condition ICD9-CM Code [id number] Code Onset Dates Condition Status SNOMED Code Problem Memory loss R41.3 Active 73906682 Problem Other emphysema J43.8 Active 17795890 Problem Irritable bowel syndrome with diarrhea K58.0 Active 779411396 Problem Chronic prescription benzodiazepine use Z79.899 Active 435683196 Problem Benign familial tremor G25.0 Active 777405565 Problem Other iron deficiency anemia D50.8 Active 28065528 Problem Reactive depression F32.9 Active 56180816 Problem Coarse tremors G25.2 Active 73434710 Problem Claustrophobia F40.240 Active 88972507 Problem Essential hypertension I10 Active 71602681 Problem Anxiety F41.9 Active 88464415 Problem Nicotine abuse Z72.0 Active 62302201 Problem Supplemental oxygen dependent Z99.81 Active 837693811591 Problem Chronic obstructive pulmonary disease with acute exacerbation J44.1 Active 771821546 Problem CAD (coronary artery disease) 414.00 Active 04223169 Problem Pulmonary emphysema, unspecified emphysema type J43.9 Active 05083732 ALLERGIES No Information ENCOUNTERS Encounter Location Date Diagnosis [facility] [id number] [address] Nov, [facility] [id number] [address] Nov, [facility] [id number] [address] Oct, [facility] [id number] [address] 8862 Oct, Anxiety F41.9 [address] [id number] [place] [address] 46064- 6017 Sep, [facility] [id number] [place] [address] 03436- 4518 Sep, [facility] [id number] [place] [address] 68479- 6263 14 Sep, 2017 Anxiety F41.9 [facility] [address] 59410- 4990 Sep, Pulmonary emphysema, unspecified emphysema type J43.9 ; Other iron deficiency anemia D50.8 ; Pain of toe of left foot M79.675 and Pain in right toe(s) M79.674 [facility] [id number] [place] [address] 98613- 1612 05 Sep, 2017 Mouth pain K13.79 [facility] [id number] [place] [address] 56055- 1823 Sep, Pain, dental K08.89 [facility] [id number] [place] [address] 33365- 5690 Sep, [facility] [id number] [place] [address] 05247- 4380 Sep, Pulmonary emphysema, unspecified emphysema type J43.9 ; Nicotine abuse Z72.0 ; Diarrhea, unspecified type R19.7 ; Mouth pain K13.79 and Vision changes H53.9 [facility] [address] [place] [address] 70004- 2150 Sep, [facility] [id number] [place] [address] 33081- 5887 August, Anxiety F41.9 [facility] [id number] [place] [address] 29807- 7806 Jul, Anxiety F41.9 [facility] [id number] [place] [address] 67769- 7702 Jun, Pulmonary emphysema, unspecified emphysema type J43.9 and Anxiety F41.9 [facility] [id number] [place] [address] 96117- 6923 Jun, Anxiety F41.9 [facility] [id number] [place] [address] 47723- 0669 Jun, [facility] [id number] [place] [address] 77035- 0867 Jun, [facility] [id number] [place] [address] 84258- 2043 Jun, [facility] [address] [address] -[address]00 Jun, Dysuria R30.0 and Acute cystitis with hematuria N30.01 [facility] [id number] [place] [address] 44704- 5036 May, Anxiety F41.9 and Chronic prescription benzodiazepine use Z79.899 [facility] [id number] [place] [address] 56607- 2823 May, Anxiety F41.9 and Chronic prescription benzodiazepine use Z79.899 [facility] [id number] [place] [address] 62385- 0257 May, Benign familial tremor G25.0 [facility] [id number] [place] [address] 07355- 5519 Apr, Other iron deficiency anemia D50.8 [facility] [id number] [place] [address] 35861- 3128 Apr, Anxiety F41.9 [facility] [id number] [place] [address] 23194- 8205 Apr, [facility] [id number] [place] [address] 21886- 6444 Apr, Pancreatic cyst K86.2 ; Other iron deficiency anemia D50.8 ; Pulmonary emphysema, unspecified emphysema type J43.9 ; Coarse tremors G25.2 and Claustrophobia F40.240 [facility] [address] 97866- 8933 Apr, Anxiety F41.9 [facility] [address] 44208- 5328 Mar, [facility] [address] 17052- 2309 Mar, Anxiety F41.9 [facility] [address] 17578- 9802 Feb, Anxiety F41.9 [facility] [address] 38909- 7665 Jan, [facility] [address] 84982- 5879 Jan, [facility] [address] 11205- 7200 Jan, Anxiety F41.9 [facility] [address] 87687- 9653 Jan, Pulmonary emphysema, unspecified emphysema type J43.9 ; Encounter for immunization Z23 ; Other iron deficiency anemia D50.8 ; Anxiety F41.9 ; Diarrhea, unspecified type R19.7 and Memory loss R41.3 [facility] [id number] [place] [address] 15136- 9135 Dec, Anxiety F41.9 [facility] [address] 43085- 0274 Dec, Irritable bowel syndrome with diarrhea K58.0 [facility] [address] 38644- 9870 Dec, Diarrhea, unspecified type R19.7 [facility] [id number] [place] [address] 55242- 9448 Nov, Acute non-recurrent maxillary sinusitis J01.00 ; Pulmonary emphysema, unspecified emphysema type J43.9 ; Diarrhea, unspecified type R19.7 and Other iron deficiency anemia D50.8 [facility] [id number] [place] [address] 79489- 7511 Nov, [facility] [id number] [place] [address] 71462 -2374 Nov, Sore throat J02.9 and Strep pharyngitis J02.0 [facility] [id number] [place] [address] 55893- 4237 Nov, Other iron deficiency anemia D50.8 [facility] [address] 13570- 5166 Nov, Anxiety F41.9 and Low hemoglobin D64.[address] 15872- 4689 Oct, Anxiety F41.9 [facility] [id number] [place] [address] 51553- 8258 16 Sep, 2016 Anxiety F41.9 [facility] [address] 60359- 6807 13 Sep, 2016 Left upper quadrant pain R10.12 [facility] [address] 62090- 4625 07 Sep, 2016 Other iron deficiency anemia D50.8 and Left upper quadrant pain R10.12 [facility] [id number] [place] [address] 74280- 9040 August, Anxiety F41.9 [facility] [address] 80832- 8432 August, Other iron deficiency anemia D50.8 and Left upper quadrant pain R10.12 [facility] [id number] [place] [address] 43214- 4823 Jul, Other iron deficiency anemia D50.8 ; Acute gastric ulcer with hemorrhage K25.0 and Anxiety F41.9 [facility] [id number] [place] [address] 14076- 2263 Jul, Other iron deficiency anemia D50.8 ; Other fatigue R53.83 ; Nicotine abuse Z72.0 ; Anxiety F41.9 and Pulmonary emphysema, unspecified emphysema type J43.9 [facility] [id number] [place] [address] 28788- 3702 31 Jun, 2016 Other iron deficiency anemia D50.8 and Hematochezia K92.1 [facility] [id number] [place] [address] 48098- 3714 Jun, Other fatigue R53.83 and Other iron deficiency anemia D50.8 [facility] [id number] [place] [address] 56699- 2250 Jun, Other fatigue R53.83 [facility] [address] 98365- 2560 Jun, Other iron deficiency anemia D50.8 ; Nicotine abuse Z72.0 ; Anxiety F41.9 and Pulmonary emphysema, unspecified emphysema type J43.9 [facility] [address] 75642- 0096 17 Jun, 2016 Low hemoglobin D64.9 [facility] [id number] [place] [address] 61354- 7362 16 Jun, 2016 Low hemoglobin D64.9 [facility] [address] 62109- 0415 14 Jun, 2016 Anxiety F41.9 ; Nicotine abuse Z72.0 and Reactive depression F32.9 [facility] [address] 83760- 5836 09 Jun, 2016 Anxiety F41.9 [facility] [id number] [place] [address] 09813- 0737 27 May, 2016 Anxiety F41.9 ; Nicotine abuse Z72.0 and Reactive depression F32.9 [facility] [id number] [place] [address] 59659- 4774 May, Anxiety F41.9 [facility] [address] 82455- 6250 May, Anxiety F41.9 ; Nicotine abuse Z72.0 and Reactive depression F32.9 [address] [address] 91334- 5691 May, [facility] [address] 05682- 6891 May, [facility] [address] 40745- 9829 May, Anxiety F41.9 [facility] [address] 88355- 7994 May, Other emphysema J43.8 ; Cramping of hands R25.2 ; Irritable bowel syndrome with diarrhea K58.0 ; Breast cancer screening Z12.39 ; Candidal stomatitis B37.0 and Candidal esophagitis B37.81 [facility] [address] 83322- 7284 Apr, Anxiety F41.9 [facility] [id number] [place] [address] 23794- 0635 Mar, Anxiety F41.9 [facility] [address] 71927- 8204 Feb, Anxiety F41.9 [facility] [id number] [place] [address] 50543- 1200 Jan, Anxiety F41.9 [facility] [address] 99902- 1591 13 Jan, 2016 Anxiety F41.9 [facility] [id number] [place] [address] 69464- 7250 Jan, Anxiety F41.9 [address] [address] [address]- 0305 Jan, Anxiety F41.9 ; Nicotine abuse Z72.0 ; Pulmonary emphysema, unspecified emphysema type J43.9 ; Memory loss R41.3 and Abdominal pain, unspecified location R10.9 [facility] [address] [address]- 8175 Jan, [facility] [id number] [place] [address] 85083- 2851 Dec, Anxiety F41.9 [facility] [id number] [place] [address] 47456 -7890 Dec, Right arm pain M79.601 [facility] [id number] [place] [address] 76400- 5103 Nov, Anxiety F41.9 [facility] [id number] [place] [address] 55221- 9490 Oct, Anxiety F41.9 [facility] [id number] [place] [address] 79893- 0683 Oct, [facility] [id number] [place] [address] 45189- 0178 Sep, Anxiety F41.9 [facility] [address] [address]- 4386 Sep, Left lower quadrant pain R10.32 ; Memory loss R41.3 and Basal cell carcinoma of skin, unspecified C44.91 [facility] [address] [address]- 4999 Sep, Anxiety F41.9 [facility] [id number] [place] [address] 45258- 6880 August, Anxiety F41.9 [facility] [address] [address]- 6651 August, Left lower quadrant pain R10.32 ; Memory loss R41.3 ; Pulmonary emphysema, unspecified emphysema type J43.9 and Depression, unspecified depression type F32.9 [facility] [id number] [place] [address] 75611- 4799 August, [facility] [id number] [place] [address] 90125- 7581 Jul, [facility] [id number] [place] [address] 58351- 1273 Jun, [facility] [id number] [place] [address] 16371- 8098 May, [facility] [id number] [place] [address] 25511- 5800 Apr, [facility] [id number] [place] [address] 07070- 1402 Apr, Chronic obstructive pulmonary disease with acute exacerbation J44.1 ; Anxiety F41.9 and Nicotine abuse Z72.0 [facility] [id number] [place] [address] 62809- 3010 Apr, [facility] [id number] [place] [address] 30569- 3921 Mar, Anxiety disorder, unspecified F41.9 [facility] [id number] [place] [address] 05881- 0465 Mar, [facility] [id number] [place] [address] 93921- 9426 Feb, [facility] [id number] [place] [address] 21909- 0287 Nov, [facility] [id number] [place] [address] 43083- 2759 Nov, [facility] [address] [place] [address] 90548- 6738 Nov, Basal cell carcinoma 173.91 and Astigmatism with presbyopia 367.20 [facility] [address] [address]- 5969 Oct, [facility] [id number] [place] [address] 66364- 3119 Oct, Lipoma 214.9 [facility] [id number] [address]- 8758 Sep, Ganglion cyst 727.43 ; Chronic airway obstruction, not elsewhere classified 496 ; Hypertension 401.9 ; CAD (coronary artery disease) 414.00 and Dysthymia 300.4 [facility] [id number] [address]- 6384 Jul, [facility] [id number] [place] [address] 00414- 5918 Jul, [facility] [id number] [place] [address] 09475- 2838 Jun, [facility] [id number] [place] [address] 70264- 5977 Jun, [facility] [address] [address]- 3032 Jun, [facility] [address] [address]- 7991 Jun, [facility] [address] [address]- 4889 May, [facility] [address] [address]- 5477 May, [facility] [address] [address]- 9285 Mar, [facility] [id number] [address]- 0727 Mar, [facility] [id number] 9857 Mar, [facility] [id number] [place] [address], [place] [address]- 4989 05 Mar, 2014 [facility] [place] [facility] [address] [id number] [place] [address]- 3810 Feb, [facility] [place] [facility] [address] [id number] [place] [address]- 2170 Feb, [facility] [place] [facility] [address] [id number] [place] [address]- 9944 Feb, [facility] [place] [facility] [address] [id number] [place] [address]- 5856 Feb, [facility] [place] [facility] [address] [id number] [place] [address]- 9321 Feb, [facility] [place] [facility] [address] [id number] [place] [address]- 7204 Feb, [facility] [place] [facility] [address] [id number] [place] [address]- 7335 Feb, [facility] [place] [facility] [address] [id number] [place] [address]- 3609 Feb, [facility] [place] [facility] [address] [id number] [place] [address]- 6100 Feb, [facility] [place] [facility] [address] [id number] [place] [address]- 5661 Feb, [facility] [place] [facility] [address] [id number] [place] [address]- 6923 Dec, [facility] [place] [facility] [address] [id number] [place] [address]- 8244 Dec, [facility] [place] [facility] [address] [id number] [place] [address]- 1593 Nov, [facility] [place] [facility] [address] [id number] [place] [address]- 0905 Oct, [facility] [place] [facility] [address] [id number] [place] 6693 Oct, [facility] [place] [facility] [address] [id number] [place] [address]- 0456 August, [facility] [place] [facility] [address] [id number] [place] [address]- 7486 August, [facility] [place] [facility] [address] [id number] [place] 2976 August, [facility] [place] [facility] [address] [id number] [place] [address]- 8437 August, [facility] [place] [facility] [address] [id number] [place] [address]- 0267 Jul, [facility] [place] [facility] [address] [id number] [place] [address]- 8229 Jul, [facility] [place] [facility] [address] [id number] [place] [address]- 9513 Jun, [facility] [place] [facility] [address] [id number] [place] [address]- 9999 Jun, [facility] [place] [facility] [address] [id number] [place] [address]- 2446 Jun, [facility] [place] [facility] [address] [id number] [place] [address]- 3041 Jun, [facility] [place] [facility] [address] [id number] [place] [address]- 1208 Jun, [facility] [place] [facility] [address] [id number] [place] [address]- 8694 Jun, [facility] [place] [facility] [address] [id number] [place] [address]- 7273 Jun, [facility] [place] [facility] [address] [id number] [place] [address]- 5067 Jun, [facility] [place] [facility] [address] [id number] [place] [address]- 2182 Jun, [facility] [place] [facility] [address] [id number] [place] [address]- 4172 10 Jun, 2013 [facility] [place] [facility] [address] [id number] [place] [address]- 4856 10 Jun, 2013 [facility] [place] [facility] [address] [id number] [place] [address]- 4443 Jun, [facility] [place] [facility] [address] [id number] [place] [address]- 7537 Jun, [facility] [place] [facility] [address] [id number] [place] [address]- 3808 Jun, [facility] [place] [facility] [address] [id number] [place] [address]- 6445 Jun, [facility] [place] [facility] [address] [id number] [place] [address]- 0758 Jun, [facility] [place] [facility] [address] [id number] [place] [address]- 0878 Jun, [facility] [place] [facility] [address] [id number] [place] [address]- 4669 Jun, [facility] [place] [facility] [address] [id number] [place] [address]- 2131 Jun, [facility] [place] [facility] [address] [id number] [place] [address]- 4369 May, [facility] [place] [facility] [address] [id number] [place] [address]- 7019 May, [facility] [place] [facility] [address] [id number] [place] [address]- 2833 May, [facility] [place] [facility] [address] [id number] [place] [address]- 5990 May, [facility] [place] [facility] [address] [id number] [place] [address]- 1623 Apr, [facility] [place] [facility] [address] [id number] [place] [address]- 5957 Apr, [facility] [place] [facility] [address] [id number] [place] [address]- 0186 10 Mar, 2013 [facility] [address] [id number] [place] [address]- 5648 Mar, [facility] [place] [facility] [address] [id number] [place] [address]- 8706 Mar, [facility] [address] [id number] [place] [address]- 7739 Mar, [facility] [place] [facility] [address] [id number] [place] [address]- 2117 Mar, [facility] [address] [id number] [place] [address]- 4005 Mar, [facility] [place] [facility] [address] [id number] [place] [address]- 5862 Mar, [facility] [place] [facility] [address] [id number] [place] [address]- 3894 Mar, [facility] [address] [id number] [place] [address]- 9157 Mar, [facility] [place] [facility] [address] [id number] [place] [address] Mar, [facility] [address] [id number] [place] [address] Mar, [facility] [place] [facility] [address] [id number] [place] [address] Feb, [facility] [place] [facility] [address] [id number] [place] [address] Feb, [facility] [place] [facility] [address] [id number] [place] [address] Jan, [facility] [place] [facility] [address] [id number] [place] [address] Jan, [facility] [place] [facility] [address] [id number] [place] [address] Jan, [facility] [address] [id number] [place] [address] Nov, [facility] [place] [facility] [address] [id number] [place] [address] Oct, [facility] [place] [facility] [address] [id number] [place] [address] Oct, [facility] [place] [facility] [address] [id number] [place] [address] Oct, [facility] [place] [facility] [address] [id number] [place] [address] Oct, [facility] [place] [facility] [address] [id number] [place] [address] Oct, [facility] [place] [facility] [address] [id number] [place] [address] Oct, [facility] [place] [facility] [address] [id number] [place] [address] Oct, [facility] [place] [facility] [address] [id number] [place] [address] Oct, [facility] [place] [facility] [address] [id number] [place] [address] Sep, [facility] [place] [facility] [address] [id number] [place] [address] Sep, [facility] [place] [facility] [address] [id number] [place] [address] Sep, [facility] [place] [facility] [address] [id number] [place] [address] Sep, [facility] [place] [facility] [address] [id number] [place] [address] August, [facility] [place] [facility] [address] [id number] [place] [address] August, [facility] [place] [facility] [address] [id number] [place] [address] August, [facility] [address] [id number] [place] [address] August, [facility] [place] [facility] [address] [id number] [place] [address] August, [facility] [address] [id number] [place] [address] August, [facility] [place] [facility] [address] [id number] [place] [address] Jul, [facility] [address] [id number] [place] [address] May, [facility] [place] [facility] [address] [id number] [place] [address] Apr, [facility] [address] [id number] [place] [address] Apr, [facility] [address] [id number] [place] [address] Apr, [facility] [address] [id number] [place] [address] Mar, [facility] [address] [id number] [place] [address] Mar, [facility] [address] [id number] [place] [address] Mar, [facility] [place] [facility] [address] [id number] [place] [address] Mar, [facility] [place] [facility] [address] [id number] [place] [address] Jan, [facility] [place] [facility] [address] [id number] [place] [id number] Nov, [facility] [place] [facility] [address] [id number] [place] [address] Sep, [facility] [place] [facility] [address] [id number] [place] [address] August, [facility] [address] [id number] [place] [address] August, [facility] [address] [id number] [place] [address] Jul, [facility] [address] [id number] [place] [address] Jul, [facility] [address] [id number] [place] [address] Jul, [facility] [address] [id number] [place] [address] Jul, [facility] [address] [id number] [place] [address] Jul, [facility] [address] [id number] [place] [address] Jun, [facility] [address] [id number] [place] [address] Apr, [facility] [address] [id number] [place] [address] Feb, [facility] [address] [id number] [place] [address] Nov, [facility] [address] [id number] [place] [address] Oct, [facility] [place] [facility] [address] [id number] [place] [address] Feb, [facility] [place] [facility] [address] [id number] [place] [address] August, [facility] [place] [facility] [address] [id number] [place] [address] Jul, [facility] [place] [facility] [address] [id number] [address] Jun, IMMUNIZATIONS No Known Immunizations SOCIAL HISTORY Never Assessed REASON FOR VISIT Controlled Med Refill 07/12/17 PLAN OF CARE VITAL SIGNS MEDICATIONS Medication [...]
--- OUTSIDE RECORDS SUMMARY | 2017-12-30 00:36 | XMS REPORT ---
Author Author ANTOINE Saucedo Organization [facility] Address [address] [place] [address] Care Team Providers Care Pharmacist Manager Name Role Phone ANTOINE Saucedo Unavailable PROBLEMS Type Condition ICD9-CM Code KXP52-NL Code Onset Dates Condition Status SNOMED Code Problem Memory loss R41.3 Active 02608168 Problem Other emphysema J43.8 Active 20735701 Problem Irritable bowel syndrome with diarrhea K58.0 Active 070217061 Problem Chronic prescription benzodiazepine use Z79.899 Active 703996121 Problem Benign familial tremor G25.0 Active 017842049 Problem Other iron deficiency anemia D50.8 Active 52273091 Problem Reactive depression F32.9 Active 50243621 Problem Coarse tremors G25.2 Active 93068257 Problem Claustrophobia F40.240 Active 55208113 Problem Essential hypertension I10 Active 81449919 Problem Anxiety F41.9 Active 22101109 Problem Nicotine abuse Z72.0 Active 95485714 Problem Supplemental oxygen dependent Z99.81 Active 167237335511 Problem Chronic obstructive pulmonary disease with acute exacerbation J44.1 Active 976311523 Problem CAD (coronary artery disease) 414.00 Active 20654665 Problem Pulmonary emphysema, unspecified emphysema type J43.9 Active 61861223 ALLERGIES No Information ENCOUNTERS Encounter Location Date Diagnosis [facility] [id number] [address] Nov, [facility] [address], [place] [address] Nov, [facility] [address], [place] [address] 96[address] Sep, [facility] [id number] [address] Sep, [address] [address]- 9[address] Sep, Anxiety F41.9 [place] [address] 67304- 9884 Sep, Pulmonary emphysema, unspecified emphysema type J43.9 ; Other iron deficiency anemia D50.8 ; Pain of toe of left foot M79.675 and Pain in right toe(s) M79.674 [place] [address] 19350- 0651 Sep, Mouth pain K13.79 [place] [address] 82229- 6796 Sep, Pain, dental K08.89 [place] [address] 40188- 1874 Sep, [place] [address] 61190- 1455 Sep, Pulmonary emphysema, unspecified emphysema type J43.9 ; Nicotine abuse Z72.0 ; Diarrhea, unspecified type R19.7 ; Mouth pain K13.79 and Vision changes H53.9 [place] [address] 97456- 8027 Sep, [place] [address] 47860- 5714 August, Anxiety F41.9 [place] [address] 76338- 7582 Jul, Anxiety F41.9 [place] [address] 91853- 2631 Jun, Pulmonary emphysema, unspecified emphysema type J43.9 and Anxiety F41.9 [place] [address] 79319- 8663 Jun, Anxiety F41.9 [place] [address] [place] [address]- 4588 Jun, [facility] [id number] [place] [address] 81941- 1260 Jun, [facility] [id number] [place] [address] 78759- 9929 Jun, [facility] [id number] [place] [address] 27712 -3277 Jun, Dysuria R30.0 and Acute cystitis with hematuria N30.01 [facility] [id number] [place] [address] 33018- 8332 May, Anxiety F41.9 and Chronic prescription benzodiazepine use Z79.899 [place] [id number] [place] [address] 14296- 1291 May, Anxiety F41.9 and Chronic prescription benzodiazepine use Z79.899 [place] [address] 86912- 7636 May, Benign familial tremor G25.0 [place] [id number] [place] [address] 31070- 6015 Apr, Other iron deficiency anemia D50.8 [place] [id number] [place] [address] 63178- 4710 Apr, Anxiety F41.9 [place] [address] 45262- 7288 Apr, [facility] [id number] [place] [address] 66013- 2304 Apr, Pancreatic cyst K86.2 ; Other iron deficiency anemia D50.8 ; Pulmonary emphysema, unspecified emphysema type J43.9 ; Coarse tremors G25.2 and Claustrophobia F40.240 [place] [id number] [place] [address] 37976- 1188 Apr, Anxiety F41.9 [address] [place] [id number] [place] [address]- 8274 Mar, [place] [id number] [place] [address] 75494- 1480 Mar, Anxiety F41.9 [place] [id number] [place] [address] 92789- 6825 Feb, Anxiety F41.9 [address] [address] 79856- 9603 Jan, [place] [address] 87332- 7197 Jan, [address] [address] 52457- 8782 Jan, Anxiety F41.9 [place] [id number] [place] [address] 20775- 9308 Jan, Pulmonary emphysema, unspecified emphysema type J43.9 ; Encounter for immunization Z23 ; Other iron deficiency anemia D50.8 ; Anxiety F41.9 ; Diarrhea, unspecified type R19.7 and Memory loss R41.3 [place] [address] 60173- 3101 Dec, Anxiety F41.9 [place] [id number] [place] [address] 72976- 6435 Dec, Irritable bowel syndrome with diarrhea K58.0 [place] [id number] [place] [address] 11473- 5767 Dec, Diarrhea, unspecified type R19.7 [place] [id number] [place] [address] 04354- 9730 Nov, Acute non-recurrent maxillary sinusitis J01.00 ; Pulmonary emphysema, unspecified emphysema type J43.9 ; Diarrhea, unspecified type R19.7 and Other iron deficiency anemia D50.8 [place] [id number] [place] [address] 32522- 5892 Nov, [facility] [address], [place] [address] Nov, Sore throat J02.9 and Strep pharyngitis J02.0 [facility] [address], [place] [address]- 3170 Nov, Other iron deficiency anemia D50.8 [facility] [id number] [place] [address] 00538- 2990 Nov, Anxiety F41.9 and Low hemoglobin D64.9 [place] [id number] [place] [address] 91538- 8699 Oct, Anxiety F41.9 [facility] [id number] [place] [address] 98343- 6048 16 Sep, 2016 Anxiety F41.9 [place] [id number] [place] [address] 53268- 3838 13 Sep, 2016 Left upper quadrant pain R10.12 [place] [id number] [place] [address] 86684- 8770 07 Sep, 2016 Other iron deficiency anemia D50.8 and Left upper quadrant pain R10.12 [facility] [id number] [place] [address] 41980- 9499 August, Anxiety F41.9 [place] [id number] [place] [address] 37360- 8690 August, Other iron deficiency anemia D50.8 and Left upper quadrant pain R10.12 [place] [id number] [place] [address] 88320- 8885 Jul, Other iron deficiency anemia D50.8 ; Acute gastric ulcer with hemorrhage K25.0 and Anxiety F41.9 [facility] [id number] [place] [address] 08079- 2738 18 Jul, 2016 Other iron deficiency anemia D50.8 ; Other fatigue R53.83 ; Nicotine abuse Z72.0 ; Anxiety F41.9 and Pulmonary emphysema, unspecified emphysema type J43.9 [facility] [id number] [place] [address] 92493- 3558 31 Jun, 2016 Other iron deficiency anemia D50.8 and Hematochezia K92.1 [facility] [id number] [place] [address] 34486- 7811 27 Jun, 2016 Other fatigue R53.83 and Other iron deficiency anemia D50.8 [place] [id number] [place] [address] 57099- 9516 Jun, Other fatigue R53.83 [address] [address] 03115- 7039 Jun, Other iron deficiency anemia D50.8 ; Nicotine abuse Z72.0 ; Anxiety F41.9 and Pulmonary emphysema, unspecified emphysema type J43.9 [place] [id number] [place] [address] 46325- 7682 17 Jun, 2016 Low hemoglobin D64.9 [place] [id number] [place] [address] 06429- 2125 16 Jun, 2016 Low hemoglobin D64.9 [place] [id number] [place] [address] 97099- 1281 14 Jun, 2016 Anxiety F41.9 ; Nicotine abuse Z72.0 and Reactive depression F32.9 [place] [id number] [place] [address] 07897- 9651 Jun, Anxiety F41.9 [place] [id number] [place] [address] 80194- 4674 May, Anxiety F41.9 ; Nicotine abuse Z72.0 and Reactive depression F32.9 [place] [id number] [place] [address] 24356- 5401 May, Anxiety F41.9 [place] [id number] [place] [address] 96190- 9681 May, Anxiety F41.9 ; Nicotine abuse Z72.0 and Reactive depression F32.9 [place] [id number] [place] [address] 50940- 9990 17 May, 2016 [place] [id number] [place] [address] 04630- 6185 May, [address] 07381- 2860 07 May, 2016 Anxiety F41.9 [place] [id number] [place] [address] 74662- 6734 May, Other emphysema J43.8 ; Cramping of hands R25.2 ; Irritable bowel syndrome with diarrhea K58.0 ; Breast cancer screening Z12.39 ; Candidal stomatitis B37.0 and Candidal esophagitis B37.81 [place] [id number] [place] [address] 54236- 1976 Apr, Anxiety F41.9 [address] [id number] [place] [address] 45121- 1657 Mar, Anxiety F41.9 [address] [place] [address] 59685- 4166 Feb, Anxiety F41.9 [place] [id number] [place] [address] 08981- 7762 Jan, Anxiety F41.9 [address] [id number] [place] [address] 46209- 1414 Jan, Anxiety F41.9 [place] [id number] [place] [address] 21526- 5649 Jan, Anxiety F41.9 [place] [id number] [place] [address] 96447- 6606 Jan, Anxiety F41.9 ; Nicotine abuse Z72.0 ; Pulmonary emphysema, unspecified emphysema type J43.9 ; Memory loss R41.3 and Abdominal pain, unspecified location R10.9 [facility] [address], [place] [address]- 2974 Jan, [facility] [id number] [place] [address] 41884- 5129 Dec, Anxiety F41.9 [facility] [address], [place] [address]23 Dec, Right arm pain M79.601 [facility] [id number] [place] [address] 85449- 7378 Nov, Anxiety F41.9 [facility] [id number] [place] [address] 78501- 7631 Oct, Anxiety F41.9 [facility] [id number] [place] [address] 28593- 4921 Oct, [facility] [id number] [place] [address] 37838- 4020 Sep, Anxiety F41.9 [facility] [id number] [place] [address] 54230- 2711 Sep, Left lower quadrant pain R10.32 ; Memory loss R41.3 and Basal cell carcinoma of skin, unspecified C44.91 [facility] [address], [place] [address]- 6850 Sep, Anxiety F41.9 [facility] [id number] [place] [address] 70793- 1275 August, Anxiety F41.9 [facility] [address], [place] [address]- 9926 August, Left lower quadrant pain R10.32 ; Memory loss R41.3 ; Pulmonary emphysema, unspecified emphysema type J43.9 and Depression, unspecified depression type F32.9 [facility] [address], [place] [address]- 1659 August, [facility] [address], [place] [address]- 5659 Jul, [facility] [id number] [place] [address] 89987- 9169 Jun, [facility] [id number] [place] [address] 71954- 7628 May, [facility] [id number] [place] [address] 61863- 4002 Apr, [facility] [id number] [place] [address] 35779- 9082 Apr, Chronic obstructive pulmonary disease with acute exacerbation J44.1 ; Anxiety F41.9 and Nicotine abuse Z72.0 [facility] [id number] [place] [address] 54011- 8027 Apr, [facility] [id number] [place] [address] 14809- 3498 Mar, Anxiety disorder, unspecified F41.9 [facility] [id number] [place] [address] 45577- 9857 Mar, [facility] [id number] [place] [address] 68921- 3408 Feb, [facility] [id number] [place] [address] 92492- 3904 Nov, [facility] [id number] [place] [address] 66328- 9042 Nov, [facility] [id number] [place] [address] 80166- 8677 Nov, Basal cell carcinoma 173.91 and Astigmatism with presbyopia 367.20 [facility] [id number] [place] [address] 73369- 6089 Oct, [facility] [address], [place] [address]- 1598 Oct, Lipoma 214.9 [facility] [address], [place] [address]- 1060 24 Sep, 2014 Ganglion cyst 727.43 ; Chronic airway obstruction, not elsewhere classified 496 ; Hypertension 401.9 ; CAD (coronary artery disease) 414.00 and Dysthymia 300.4 [facility] [address], [place] [address]- 4222 14 Jul, 2014 [facility] [id number] [place] [address] 20646- 3578 Jul, [facility] [address], [place] [address]- 2674 Jun, [facility] [id number] [place] [address] 35991- 4402 Jun, [facility] [id number] [address]- 2580 Jun, [facility] [id number] [place] [address] 42294- 1474 Jun, [facility] [address], [place] [address]- 2588 May, [facility] [address], [place] [address]- 3515 May, [facility] [address], [place] [address]- 9917 Mar, [facility] [address], [place] [address]- 3491 Mar, [facility] [address], [place] [address]- 7564 Mar, [facility] [address], [place] [address]- 2590 Mar, [facility] [id number], [place] [address]- 9451 Feb, [facility] [id number] [place] [address]- 5173 Feb, [facility] [place] [facility] [address] [id number] [place] [address]- 8033 Feb, [facility] [place] [facility] [address] [id number] [place] [address]- 5140 Feb, [facility] [place] [facility] [address] [id number] [place] [address]- 2981 Feb, [facility] [place] [facility] [address] [id number] [place] [address]- 6969 Feb, [facility] [place] [facility] [address] [id number] [place] [address]- 7298 Feb, [facility] [place] [facility] [address] [id number] [place] [address]- 9352 Feb, [facility] [place] [facility] [address] [id number] [place] [address]- 3811 Feb, [facility] [place] [facility] [address] [id number] [place] [address]- 9688 Feb, [facility] [place] [facility] [address] [id number] [place] [address]- 2176 Dec, [facility] [place] [facility] [address] [id number] [place] [address]- 5047 Dec, [facility] [place] [facility] [address] [id number] [place] [address]- 5974 Nov, [facility] [place] [facility] [address] [id number], [place] [address]- 5741 Oct, [facility] [place] [facility] [address] [id number] [place] [address]- 9861 Oct, [facility] [place] [facility] [address] [id number] [place] [address]- 7519 August, [facility] [place] [facility] [address] [id number] [place] [address]- 2201 August, [facility] [place] [facility] [address] [id number] [place] [address]- 9199 August, [facility] [place] [facility] [address] [id number] [place] [address]- 2838 August, [facility] [place] [facility] [address] [id number] [place] [address]- 3576 Jul, [facility] [place] [facility] [address] [id number] [place] [address]- 9993 Jul, [facility] [place] [facility] [address] [id number] [place] [address]- 2491 Jun, [facility] [place] [facility] [address] [id number] [place] [address]- 9824 Jun, [facility] [place] [facility] [address] [id number] [place] [address]- 1635 Jun, [facility] [place] [facility] [address] [id number] [place] [address]- 5466 Jun, [facility] [place] [facility] [address] [id number] [place] [address]- 7031 Jun, [facility] [place] [facility] [address] [id number] [place] [address]- 4564 Jun, [facility] [place] [facility] [address] [id number] [place] [address]- 2780 Jun, [facility] [place] [facility] [address] [id number] [place] [address]- 1215 10 Jun, 2013 [facility] [place] [facility] [address] [id number] [place] [address]- 8765 10 Jun, 2013 [facility] [place] [facility] [address] [id number] [place] [address]- 3869 10 Jun, 2013 [facility] [place] [facility] [address] [id number] [place] 2289 Jun, [facility] [place] [facility] [address] [id number] [place] [address]- 3618 06 Jun, 2013 [facility] [place] [facility] [address] [id number] [place] [address]- 4999 06 Jun, 2013 [facility] [place] [facility] [address] [id number] [place] [address]- 9222 Jun, [facility] [place] [facility] [address] [id number] [place] [address]- 3932 Jun, [facility] [place] [facility] [address] [id number] [place] [address]- 9550 Jun, [facility] [place] [facility] [address] [id number] [place] [address]- 3108 Jun, [facility] [place] [facility] [address] [id number] [place] [address]- 3820 Jun, [facility] [place] [facility] [address] [id number] [place] [address]- 8075 Jun, [facility] [place] [facility] [address] [id number] [place] [address]- 1153 07 May, 2013 [facility] [place] [facility] [address] [id number] [place] [address]- 7447 07 May, 2013 [facility] [place] [facility] [address] [id number] [place] [address]- 7527 May, [facility] [place] [facility] [address] [id number] [place] [address]- 6551 May, [facility] [place] [facility] [address] [id number] [place] [address]- 9197 Apr, [facility] [place] [facility] [address] [id number] [place] [address]- 3703 Apr, [facility] [place] [facility] [address] [id number] [place] [address]- 0000 Mar, [facility] [place] [facility] [address] [id number] [place] [address]- 9950 Mar, [facility] [place] [facility] [address] [id number] [place] [address]- 2544 Mar, 2012 [facility] [address] [id number] [place] [address]- 6753 Mar, [facility] [address] [id number] [place] [address]- 2546 Mar, [facility] [address] [id number] [place] [address]- 3120 Mar, [facility] [address] [id number] [place] [address]- 2899 Mar, [facility] [address] [id number] [place] [address]- 2324 Mar, [facility] [address] [id number] [place] [address]- 7731 Mar, [facility] [address] [id number] [place] [address]- 7088 Mar, [facility] [address] [id number] [place] [address]- 7344 Mar, [facility] [address] [id number] [place] [address]- 3083 Feb, [facility] [address] [id number] [place] [address] Feb, [facility] [address] [id number] [place] [address] Jan, [facility] [address] [id number] [place] [address] Jan, [facility] [place] [facility] [address] [id number] [place] [address] Jan, [facility] [place] [facility] [address] [id number] [place] [address] Nov, [facility] [address] [id number] [place] [address] Oct, [facility] [address] [id number] [place] [address] Oct, [facility] [place] [facility] [address] [id number] [place] [address] Oct, [facility] [place] [facility] [address] [id number] [place] [address] Oct, [facility] [place] [facility] [address] [id number] [place] [address] Oct, [facility] [place] [facility] [address] [id number] [place] [address] Oct, [facility] [place] [facility] [address] [id number] [place] [address] Oct, [facility] [place] [facility] [address] [id number] [place] [address] Oct, [facility] [place] [facility] [address] [id number] [place] [address] Sep, [facility] [place] [facility] [address] [id number] [place] [address] Sep, [facility] [place] [facility] [address] [id number] [place] [address] Sep, [facility] [place] [facility] [address] [id number] [place] [address] Sep, [facility] [place] [facility] [address] [id number] [place] [address] August, [facility] [place] [facility] [address] [id number] [place] [address] August, [facility] [place] [facility] [address] [id number] [place] [address] August, [facility] [place] [facility] [address] [id number] [place] [address] August, [facility] [place] [facility] [address] [id number], [place] [address] August, [facility] [address] [id number] [place] [address] August, [facility] [address] [id number] [place] [address] Jul, [facility] [address] [id number] [place] [address] May, [facility] [address] [id number] [place] [address] Apr, [facility] [address] [id number] [place] [address] Apr, [facility] [address] [id number] [place] [address] Apr, [facility] [address] [id number] [place] [address] Mar, [facility] [address] [id number] [place] [address] Mar, [facility] [address] [id number] [place] [address] Mar, [facility] [address] [facility] [id number] [place] [address] Mar, [facility] [address] [id number] [place] [address] Jan, [facility] [address] [id number] [place] [address] Nov, [facility] [address] [id number] [place] [address] Sep, [facility] [place] [facility] [address] [id number] [place] [address] August, [facility] [address] [facility] [id number] [place] [address] August, [facility] [id number], [place] [address] Jul, [facility] [id number], [place] [address] Jul, [facility] [id number], [place] [address] Jul, [facility] [id number], [place] [address] Jul, [facility] [address] [facility] [id number], [place] [address] Jul, [facility] [id number] [address] Jun, [facility] [id number] [place] [address] Apr, [facility] [id number] [place] [address] Feb, [facility] [id number] [place] [address] Nov, [facility] [id number] [place] [address] Oct, [facility] [id number] [place] [address] Feb, [facility] [id number] [place] [address] August, [facility] [id number] [address] Jul, [facility] [id number] [address] Jun, IMMUNIZATIONS No Known Immunizations SOCIAL HISTORY Never Assessed REASON FOR VISIT Neuropsych Testing PLAN OF CARE VITAL SIGNS MEDICATIONS Unknown [...]
--- OUTSIDE RECORDS SUMMARY | 2017-12-30 00:37 | XMS REPORT ---
Author Author CASEY SIMPSON Organization [facility] Address [address] [place] [address] Care Team Providers Care Java Websphere Developer Name Role Phone CASEY SIMPSON Unavailable PROBLEMS Type Condition ICD9-CM Code [id number] Code Onset Dates Condition Status SNOMED Code Problem Memory loss R41.3 Active 64969786 Problem Other emphysema J43.8 Active 98606873 Problem Irritable bowel syndrome with diarrhea K58.0 Active 596000925 Problem Chronic prescription benzodiazepine use Z79.899 Active 774103516 Problem Benign familial tremor G25.0 Active 809020350 Problem Other iron deficiency anemia D50.8 Active 53618260 Problem Reactive depression F32.9 Active 67516985 Problem Coarse tremors G25.2 Active 46493338 Problem Claustrophobia F40.240 Active 00761382 Problem Essential hypertension I10 Active 85208493 Problem Anxiety F41.9 Active 92088620 Problem Nicotine abuse Z72.0 Active 20836529 Problem Supplemental oxygen dependent Z99.81 Active 552235651799 Problem Chronic obstructive pulmonary disease with acute exacerbation J44.1 Active 637059206 Problem CAD (coronary artery disease) 414.00 Active 89156770 Problem Pulmonary emphysema, unspecified emphysema type J43.9 Active 03005793 ALLERGIES No Information ENCOUNTERS Encounter Location Date Diagnosis [facility] [address] [address] Nov, [facility] [id number] [place] [address] 60651- 7630 Nov, [facility] [id number] [place] [address] 25328- 2323 Sep, [facility] [address], [place] [address] 4[address] Sep, [facility] [id number] [place] [address] 77794- 8170 14 Sep, 2017 Anxiety F41.9 [place] [address] 16232- 0452 13 Sep, 2017 Pulmonary emphysema, unspecified emphysema type J43.9 ; Other iron deficiency anemia D50.8 ; Pain of toe of left foot M79.675 and Pain in right toe(s) M79.674 [place] [address] 49925- 3716 05 Sep, 2017 Mouth pain K13.79 [place] [address] 87207- 6462 Sep, Pain, dental K08.89 [place] [address] 32224- 1910 Sep, [place] [address] 73800- 1244 Sep, Pulmonary emphysema, unspecified emphysema type J43.9 ; Nicotine abuse Z72.0 ; Diarrhea, unspecified type R19.7 ; Mouth pain K13.79 and Vision changes H53.9 [place] [id number] [place] [address] 11487- 2996 Sep, [place] [id number] [place] [address] 78046- 8427 August, Anxiety F41.9 [place] [id number] [place] [address] 08061- 1015 Jul, Anxiety F41.9 [place] [address] 71298- 3503 Jun, Pulmonary emphysema, unspecified emphysema type J43.9 and Anxiety F41.9 [place] [id number] [place] [address] 39425- 8351 Jun, Anxiety F41.9 [place] [address] 77111- 6724 Jun, [facility] [id number] [place] [address] 06621- 4366 Jun, [facility] [id number] [place] [address] 94521- 0460 Jun, [facility] [id number] [place] [address] 18157 -9080 Jun, Dysuria R30.0 and Acute cystitis with hematuria N30.01 [facility] [id number] [place] [address] 10749- 4232 May, Anxiety F41.9 and Chronic prescription benzodiazepine use Z79.899 [place] [id number] [place] [address] 29424- 6569 May, Anxiety F41.9 and Chronic prescription benzodiazepine use Z79.899 [place] [id number] [place] [address] 48100- 9051 May, Benign familial tremor G25.0 [place] [id number] [place] [address] 99896- 4366 Apr, Other iron deficiency anemia D50.8 [place] [id number] [place] [address] 93695- 9404 Apr, Anxiety F41.9 [place] [id number] [place] [address] 70823- 9015 Apr, [facility] [id number] [place] [address] 67730- 0153 Apr, Pancreatic cyst K86.2 ; Other iron deficiency anemia D50.8 ; Pulmonary emphysema, unspecified emphysema type J43.9 ; Coarse tremors G25.2 and Claustrophobia F40.240 [place] [id number] [place] [address] 56109- 7182 Apr, Anxiety F41.9 [place] [address] [place] [address]- 1344 Mar, [place] [id number] [place] [address] 91844- 9350 Mar, Anxiety F41.9 [place] [address] 62703- 8982 Feb, Anxiety F41.9 [place] [address] 77326- 3198 Jan, [place] [address] 06144- 5316 Jan, [place] [address] 99537- 1813 Jan, Anxiety F41.9 [place] [id number] [place] [address] 40613- 1680 Jan, Pulmonary emphysema, unspecified emphysema type J43.9 ; Encounter for immunization Z23 ; Other iron deficiency anemia D50.8 ; Anxiety F41.9 ; Diarrhea, unspecified type R19.7 and Memory loss R41.3 [place] [address] 44613- 1435 Dec, Anxiety F41.9 [place] [id number] [place] [address] 10874- 4730 Dec, Irritable bowel syndrome with diarrhea K58.0 [place] [id number] [place] [address] 43530- 6567 Dec, Diarrhea, unspecified type R19.7 [place] [id number] [place] [address] 63140- 4084 Nov, Acute non-recurrent maxillary sinusitis J01.00 ; Pulmonary emphysema, unspecified emphysema type J43.9 ; Diarrhea, unspecified type R19.7 and Other iron deficiency anemia D50.8 [place] [id number] [place] [address] 55381- 0377 Nov, [facility] [address], [place] [address] Nov, Sore throat J02.9 and Strep pharyngitis J02.0 [facility] [id number] [place] [address] 61156- 5459 Nov, Other iron deficiency anemia D50.8 [facility] [id number] [place] [address] 68518- 8450 Nov, Anxiety F41.9 and Low hemoglobin D64.9 [place] [id number] [place] [address] 06031- 0830 Oct, Anxiety F41.9 [place] [id number] [place] [address] 33078- 5898 16 Sep, 2016 Anxiety F41.9 [place] [id number] [place] [address] 62349- 0846 Sep, Left upper quadrant pain R10.12 [place] [id number] [place] [address] 54922- 7552 Sep, Other iron deficiency anemia D50.8 and Left upper quadrant pain R10.12 [facility] [id number] [place] [address] 94225- 8270 August, Anxiety F41.9 [place] [id number] [place] [address] 57660- 6224 August, Other iron deficiency anemia D50.8 and Left upper quadrant pain R10.12 [place] [id number] [place] [address] 55874- 8253 Jul, Other iron deficiency anemia D50.8 ; Acute gastric ulcer with hemorrhage K25.0 and Anxiety F41.9 [facility] [id number] [place] [address] 50638- 1129 18 Jul, 2016 Other iron deficiency anemia D50.8 ; Other fatigue R53.83 ; Nicotine abuse Z72.0 ; Anxiety F41.9 and Pulmonary emphysema, unspecified emphysema type J43.9 [facility] [id number] [place] [address] 72349- 6981 31 Jun, 2016 Other iron deficiency anemia D50.8 and Hematochezia K92.1 [facility] [id number] [place] [address] 18033- 8568 27 Jun, 2016 Other fatigue R53.83 and Other iron deficiency anemia D50.8 [place] [id number] [place] [address] 02078- 4365 Jun, Other fatigue R53.83 [place] [id number] [place] [address] 037784- 4934 Jun, Other iron deficiency anemia D50.8 ; Nicotine abuse Z72.0 ; Anxiety F41.9 and Pulmonary emphysema, unspecified emphysema type J43.9 [place] [id number] [place] [address] 87498- 1927 17 Jun, 2016 Low hemoglobin D64.9 [place] [id number] [place] [address] 73819- 8967 16 Jun, 2016 Low hemoglobin D64.9 [place] [id number] [place] [address] 72119- 9552 14 Jun, 2016 Anxiety F41.9 ; Nicotine abuse Z72.0 and Reactive depression F32.9 [place] [id number] [place] [address] 75403- 1047 Jun, Anxiety F41.9 [place] [id number] [place] [address] 32439- 9028 May, Anxiety F41.9 ; Nicotine abuse Z72.0 and Reactive depression F32.9 [place] [id number] [place] [address] 79297- 7098 May, Anxiety F41.9 [place] [id number] [place] [address] 58478- 4523 May, Anxiety F41.9 ; Nicotine abuse Z72.0 and Reactive depression F32.9 [place] [id number] [place] [address] 39392- 1890 17 May, 2016 [place] [address] 79606- 9255 May, [place] [id number] [place] [address] 38905- 4458 May, Anxiety F41.9 [place] [id number] [place] [address] 77329- 6656 May, Other emphysema J43.8 ; Cramping of hands R25.2 ; Irritable bowel syndrome with diarrhea K58.0 ; Breast cancer screening Z12.39 ; Candidal stomatitis B37.0 and Candidal esophagitis B37.81 [place] [id number] [place] [address] 08337- 4118 Apr, Anxiety F41.9 [place] [id number] [place] [address] 24355- 6935 Mar, Anxiety F41.9 [place] [address] 44082- 7830 Feb, Anxiety F41.9 [place] [id number] [place] [address] 04337- 9834 Jan, Anxiety F41.9 [place] [id number] [place] [address] 91639- 6031 Jan, Anxiety F41.9 [place] [id number] [place] [address] 02814- 7919 Jan, Anxiety F41.9 [place] [id number] [place] [address] 42209- 7982 Jan, Anxiety F41.9 ; Nicotine abuse Z72.0 ; Pulmonary emphysema, unspecified emphysema type J43.9 ; Memory loss R41.3 and Abdominal pain, unspecified location R10.9 [facility] [address], [place] [address]- 2613 Jan, [facility] [id number] [place] [address] 00945- 9167 Dec, Anxiety F41.9 [facility] [address], [place] [address] -1754 Dec, Right arm pain M79.601 [facility] [id number] [place] [address] 96661- 0947 Nov, Anxiety F41.9 [facility] [id number] [place] [address] 26064- 1363 Oct, Anxiety F41.9 [facility] [address] [place] [address] 20476- 3094 Oct, [facility] [id number] [place] [address] 90103- 7089 Sep, Anxiety F41.9 [facility] [id number] [place] [address] 84504- 4318 Sep, Left lower quadrant pain R10.32 ; Memory loss R41.3 and Basal cell carcinoma of skin, unspecified C44.91 [facility] [address], [place] [address]- 9529 Sep, Anxiety F41.9 [facility] [address] [place] [address] 41843- 4291 August, Anxiety F41.9 [facility] [address] [place] [address] 35401- 3518 August, Left lower quadrant pain R10.32 ; Memory loss R41.3 ; Pulmonary emphysema, unspecified emphysema type J43.9 and Depression, unspecified depression type F32.9 [facility] [address], [place] [address]- 0722 August, [facility] [id number] [address]- 7282 Jul, [facility] [id number] [place] [address] 92711- 0665 Jun, [facility] [id number] [address]- 4076 May, [facility] [id number] [place] [address] 83669- 2132 Apr, [facility] [id number] [place] [address] 04086- 1240 Apr, Chronic obstructive pulmonary disease with acute exacerbation J44.1 ; Anxiety F41.9 and Nicotine abuse Z72.0 [facility] [id number] [place] [address] 91520- 5749 Apr, [facility] [id number] [place] [address] 88016- 3179 Mar, Anxiety disorder, unspecified F41.9 [facility] [id number] [place] [address] 43192- 2985 Mar, [facility] [id number] [place] [address] 80198- 3015 Feb, [facility] [id number] [place] [address] 59721- 2078 Nov, [facility] [id number] [place] [address] 63222- 2228 Nov, [facility] [address] [place] [address] 82682- 4774 Nov, Basal cell carcinoma 173.91 and Astigmatism with presbyopia 367.20 [facility] [id number] [place] [address] 13650- 3763 Oct, [facility] [id number] [address]- 4273 Oct, Lipoma 214.9 [facility] [id number] [address]- 0002 24 Sep, 2014 Ganglion cyst 727.43 ; Chronic airway obstruction, not elsewhere classified 496 ; Hypertension 401.9 ; CAD (coronary artery disease) 414.00 and Dysthymia 300.4 [facility] [id number] [address]- 4434 14 Jul, 2014 [facility] [address] 74766- 7635 Jul, [facility] [id number] [place] [address] 99051- 2826 Jun, [facility] [id number] [place] [address] 30526- 1030 Jun, [facility] [id number] [place] [address] 02683- 3033 Jun, [facility] [id number] [place] [address] 00422- 2793 Jun, [facility] [id number] [place] [address] 26315- 4875 May, [facility] [id number] [place] [address] 44197- 5518 May, [facility] [id number] [address]- 8718 Mar, [facility] [address] [place] [address] 73216- 9748 Mar, [facility] [address] [place] [address] 57878- 1523 Mar, [facility] [id number] [place] [address] 13537- 7609 Mar, [facility] [address], [place] [address]- 6610 Feb, [facility] [id number] [place] [address] 18155- 7987 Feb, [facility] [place] [facility] [address] [id number] [place] [address]- 0958 Feb, [facility] [place] [facility] [address] [id number] [place] [address]- 4982 Feb, [facility] [place] [facility] [address] [id number] [place] [address]- 2165 Feb, [facility] [place] [facility] [address] [id number] [place] [address]- 0981 Feb, [facility] [place] [facility] [address] [id number] [place] [address]- 6931 Feb, [facility] [place] [facility] [address] [id number] [place] [address]- 7355 Feb, [facility] [place] [facility] [address] [id number] [place] [address]- 6884 Feb, [facility] [place] [facility] [address] [id number] [place] [address]- 7566 Feb, [facility] [place] [facility] [address] [id number] [place] [address]- 8243 Dec, [facility] [place] [facility] [address] [id number] [place] [address]- 3407 Dec, [facility] [place] [facility] [address] [id number] [place] [address]- 9464 Nov, [facility] [place] [facility] [address] [id number] [place] [address]- 0577 Oct, [facility] [place] [facility] [address] [id number] [place] [address]- 5589 Oct, [facility] [place] [facility] [address] [id number] [place] [address]- 1116 August, [facility] [place] [facility] [address] [id number] [place] [address]- 5117 August, [facility] [place] [facility] [address] [id number] [place] [address]- 6085 August, [facility] [place] [facility] [address] [id number] [place] [address]- 1989 August, [facility] [place] [facility] [address] [id number] [place] [address]- 1426 Jul, [facility] [place] [facility] [address] [id number] [place] [address]- 5849 Jul, [facility] [place] [facility] [address] [id number] [place] [address]- 0196 Jun, [facility] [place] [facility] [address] [id number] [place] [address]- 3953 Jun, [facility] [place] [facility] [address] [id number] [place] [address]- 6522 Jun, [facility] [place] [facility] [address] [id number] [place] [address]- 4811 Jun, [facility] [place] [facility] [address] [id number] [place] [address]- 6231 Jun, [facility] [place] [facility] [address] [id number] [place] [address]- 1843 Jun, [facility] [place] [facility] [address] [id number] [place] [address]- 4742 Jun, [facility] [place] [facility] [address] [id number] [place] [address]- 0424 Jun, [facility] [place] [facility] [address] [id number] [place] [address]- 0388 Jun, [facility] [place] [facility] [address] [id number] [place] [address]- 3160 Jun, [facility] [place] [facility] [address] [id number] [place] [address]- 6679 Jun, [facility] [place] [facility] [address] [id number] [place] [address]- 4456 Jun, [facility] [place] [facility] [address] [id number] [place] [address]- 7345 06 Jun, 2013 [facility] [place] [facility] [address] [id number] [place] [address]- 6203 Jun, [facility] [place] [facility] [address] [id number] [place] [address]- 0889 Jun, [facility] [place] [facility] [address] [id number] [place] [address]- 0135 Jun, [facility] [place] [facility] [address] [id number] [place] [address]- 7103 Jun, [facility] [place] [facility] [address] [id number] [place] [address]- 6373 Jun, [facility] [place] [facility] [address] [id number] [place] [address]- 1809 Jun, [facility] [place] [facility] [address] [id number] [place] [address]- 4928 May, [facility] [place] [facility] [address] [id number] [place] [address]- 6984 May, [facility] [place] [facility] [address] [id number] [place] [address]- 2751 May, [facility] [place] [facility] [address] [id number] [place] [address]- 4219 May, [facility] [place] [facility] [address] [id number] [place] [address]- 8616 Apr, [facility] [place] [facility] [address] [id number] [place] [address]- 2283 Apr, [facility] [place] [facility] [address] [id number] [place] [address]- 8059 Mar, [facility] [place] [facility] [address] [id number] [place] [address]- 2064 Mar, [facility] [place] [facility] [address] [id number] [place] [address]- 3425 Mar, 2012 [facility] [address] [id number] [place] [address]- 1739 Mar, 2012 [facility] [place] [facility] [address] [id number] [place] [address]- 0416 Mar, 2012 [facility] [address] [id number] [place] [address]- 1835 Mar, 2012 [facility] [place] [facility] [address] [id number] [place] [address] Mar, 2012 [facility] [address] [id number] [place] [address] Mar, [facility] [place] [facility] [address] [id number] [place] [address] Mar, [facility] [address] [id number] [place] [address] Mar, [facility] [place] [facility] [address] [id number] [place] [address] Mar, [facility] [place] [facility] [address] [id number] [place] [address] Feb, [facility] [place] [facility] [address] [facility] [id number] [place] [address] Feb, [facility] [place] [facility] [address] [id number] [place] [address] Jan, [facility] [place] [facility] [address] [id number] [place] [address] Jan, [facility] [place] [facility] [address] [id number] [place] [address] Jan, [facility] [place] [facility] [address] [id number] [place] [address] Nov, [facility] [place] [facility] [address] [id number] [place] [address] Oct, [facility] [place] [facility] [address] [id number] [place] [address] Oct, [facility] [address] [id number] [place] [address] Oct, [facility] [address] [id number] [place] [address] Oct, [facility] [address] [id number] [place] [address] Oct, [facility] [address] [id number] [place] [address] Oct, [facility] [address] [id number] [place] [address] Oct, [facility] [address] [id number] [place] [address] Oct, [facility] [address] [id number] [place] [address] Sep, [facility] [address] [id number] [place] [address] Sep, [facility] [address] [id number] [place] [address] Sep, [facility] [address] [id number] [place] [address] Sep, [facility] [place] [facility] [address] [id number] [place] [address] August, [facility] [place] [facility] [address] [id number] [place] [address] August, [facility] [place] [facility] [address] [id number] [place] [address] August, [facility] [place] [facility] [address] [id number] [place] [address] August, [facility] [place] [facility] [address] [id number], [place] [address] August, [facility] [address] [id number] [place] [address] August, [facility] [address] [id number] [place] [address] Jul, [facility] [address] [id number] [place] [address] May, [facility] [place] [facility] [address] [id number] [place] [address] Apr, [facility] [address] [id number] [place] [address] Apr, [facility] [address] [id number] [place] [address] Apr, [facility] [address] [id number] [place] [address] Mar, [facility] [address] [id number] [place] [address] Mar, [facility] [address] [id number] [place] [address] Mar, [facility] [place] [facility] [address] [id number] [place] [address] Mar, [facility] [address] [id number] [place] [address] Jan, [facility] [place] [facility] [address] [id number] [place] [address] Nov, [facility] [place] [facility] [address] [id number] [place] [address] Sep, [facility] [place] [facility] [address] [id number] [place] [address] August, [facility] [place] [facility] [address] [id number] [place] [address] August, [facility] [place] [facility] [id number] [address] Jul, [facility] [id number] [address] Jul, [facility] [id number], [place] [address] Jul, [facility] [id number], [place] [address] Jul, [facility] [address] [facility] [id number] [address] [address] Jul, [facility] [id number], [place] [address] Jun, [facility] [id number] [address] Apr, [facility] [id number], [place] [address] Feb, [facility] [id number], [place] [address] Nov, [facility] [id number], [place] [address] Oct, [facility] [id number] [address] Feb, [facility] [id number], [place] [address] August, [facility] [id number], [place] [address] Jul, [facility] [id number], [place] [address] Jun, IMMUNIZATIONS No Known Immunizations SOCIAL HISTORY Never Assessed REASON FOR VISIT Controlled Med Refill 06/14/17 PLAN OF CARE VITAL SIGNS MEDICATIONS Medication [...]
--- OUTSIDE RECORDS SUMMARY | 2017-12-30 00:37 | XMS REPORT ---
Author Author CASEY SIMPSON Organization [facility] Address [address] [place] [address] Care Team Providers Care Bee Breeder Name Role Phone CASEY SIMPSON Unavailable PROBLEMS Type Condition ICD9-CM Code FPA60-OL Code Onset Dates Condition Status SNOMED Code Problem Memory loss R41.3 Active 83971023 Problem Other emphysema J43.8 Active 33056367 Problem Irritable bowel syndrome with diarrhea K58.0 Active 772313955 Problem Chronic prescription benzodiazepine use Z79.899 Active 197515930 Problem Benign familial tremor G25.0 Active 741118703 Problem Other iron deficiency anemia D50.8 Active 64228190 Problem Reactive depression F32.9 Active 83874312 Problem Coarse tremors G25.2 Active 74527043 Problem Claustrophobia F40.240 Active 93403771 Problem Essential hypertension I10 Active 19764225 Problem Anxiety F41.9 Active 80161960 Problem Nicotine abuse Z72.0 Active 58018574 Problem Supplemental oxygen dependent Z99.81 Active 262312086704 Problem Chronic obstructive pulmonary disease with acute exacerbation J44.1 Active 495014199 Problem CAD (coronary artery disease) 414.00 Active 96802512 Problem Pulmonary emphysema, unspecified emphysema type J43.9 Active 71193537 ALLERGIES No Information ENCOUNTERS Encounter Location Date Diagnosis [facility] [address] [address] Nov, [facility] [id number] [place] [address] 35926- 0077 Nov, [facility] [id number] [place] [address] 26354- 2264 Sep, [facility] [address] [address] 5763 Sep, [facility] [id number] [place] [address] 71806- 9408 14 Sep, 2017 Anxiety F41.9 [facility] [place] [address] 68807- 4181 13 Sep, 2017 Pulmonary emphysema, unspecified emphysema type J43.9 ; Other iron deficiency anemia D50.8 ; Pain of toe of left foot M79.675 and Pain in right toe(s) M79.674 [facility] [address] [address]886- 2007 05 Sep, 2017 Mouth pain K13.79 [place] [address] 87319- 7530 Sep, Pain, dental K08.89 [facility] [address] 71053- 7957 Sep, [facility] [address] 13397- 3525 Sep, Pulmonary emphysema, unspecified emphysema type J43.9 ; Nicotine abuse Z72.0 ; Diarrhea, unspecified type R19.7 ; Mouth pain K13.79 and Vision changes H53.9 [facility] [id number] [place] [address] 10728- 8723 Sep, [facility] [id number] [place] [address] 31232- 9140 August, Anxiety F41.9 [facility] [id number] [place] [address] 18591- 5022 Jul, Anxiety F41.9 [facility] [address] 27975- 0649 Jun, Pulmonary emphysema, unspecified emphysema type J43.9 and Anxiety F41.9 [facility] [id number] [place] [address] 12300- 7981 Jun, Anxiety F41.9 [facility] [facility] [address] 69580- 5589 Jun, [facility] [id number] [place] [address] 04766- 5513 Jun, [facility] [id number] [place] [address] 52944- 4136 Jun, [facility] [id number] [place] [address] 64160 -4613 Jun, Dysuria R30.0 and Acute cystitis with hematuria N30.01 [facility] [id number] [place] [address] 19881- 8866 May, Anxiety F41.9 and Chronic prescription benzodiazepine use Z79.899 [facility] [id number] [place] [address] 04217- 8301 May, Anxiety F41.9 and Chronic prescription benzodiazepine use Z79.899 [facility] [id number] [place] [address] 60574- 0244 May, Benign familial tremor G25.0 [facility] [id number] [place] [address] 75166- 2854 Apr, Other iron deficiency anemia D50.8 [facility] [id number] [place] [address] 80609- 7806 Apr, Anxiety F41.9 [facility] [id number] [place] [address] 46033- 6795 Apr, [facility] [id number] [place] [address] 59457- 9116 Apr, Pancreatic cyst K86.2 ; Other iron deficiency anemia D50.8 ; Pulmonary emphysema, unspecified emphysema type J43.9 ; Coarse tremors G25.2 and Claustrophobia F40.240 [facility] [id number] [place] [address] 24021- 0578 Apr, Anxiety F41.9 [facility] [address] [place] [address]- 1015 Mar, [facility] [id number] [place] [address] 35674- 6198 Mar, Anxiety F41.9 [facility] [address] 05052- 0492 Feb, Anxiety F41.9 [facility] [address] 73003- 5021 Jan, [facility] [facility] [address] 75182- 1863 Jan, [facility] [address] 73289- 4419 Jan, Anxiety F41.9 [facility] [id number] [place] [address] 61327- 1336 Jan, Pulmonary emphysema, unspecified emphysema type J43.9 ; Encounter for immunization Z23 ; Other iron deficiency anemia D50.8 ; Anxiety F41.9 ; Diarrhea, unspecified type R19.7 and Memory loss R41.3 [facility] [address] 80675- 3674 Dec, Anxiety F41.9 [facility] [id number] [place] [address] 58460- 2129 Dec, Irritable bowel syndrome with diarrhea K58.0 [facility] [id number] [place] [address] 55177- 4112 Dec, Diarrhea, unspecified type R19.7 [facility] [id number] [place] [address] 47485- 3581 Nov, Acute non-recurrent maxillary sinusitis J01.00 ; Pulmonary emphysema, unspecified emphysema type J43.9 ; Diarrhea, unspecified type R19.7 and Other iron deficiency anemia D50.8 [facility] [id number] [place] [address] 21251- 9838 Nov, [facility] [address] [address] Nov, Sore throat J02.9 and Strep pharyngitis J02.0 [facility] [id number] [place] [address] 14694- 9767 Nov, Other iron deficiency anemia D50.8 [facility] [id number] [place] [address] 38373- 5478 Nov, Anxiety F41.9 and Low hemoglobin D64.9 [facility] [id number] [place] [address] 42059- 6355 Oct, Anxiety F41.9 [facility] [id number] [place] [address] 03372- 6995 16 Sep, 2016 Anxiety F41.9 [facility] [place] [id number] [place] [address] 92607- 2202 Sep, Left upper quadrant pain R10.12 [facility] [id number] [place] [address] 98820- 3526 Sep, Other iron deficiency anemia D50.8 and Left upper quadrant pain R10.12 [facility] [id number] [place] [address] 37761- 4932 August, Anxiety F41.9 [facility] [id number] [place] [address] 51039- 5088 August, Other iron deficiency anemia D50.8 and Left upper quadrant pain R10.12 [facility] [id number] [place] [address] 73696- 2015 Jul, Other iron deficiency anemia D50.8 ; Acute gastric ulcer with hemorrhage K25.0 and Anxiety F41.9 [facility] [id number] [place] [address] 17888- 5861 18 Jul, 2016 Other iron deficiency anemia D50.8 ; Other fatigue R53.83 ; Nicotine abuse Z72.0 ; Anxiety F41.9 and Pulmonary emphysema, unspecified emphysema type J43.9 [facility] [id number] [place] [address] 24148- 3485 31 Jun, 2016 Other iron deficiency anemia D50.8 and Hematochezia K92.1 [facility] [id number] [place] [address] 36628- 2326 27 Jun, 2016 Other fatigue R53.83 and Other iron deficiency anemia D50.8 [facility] [id number] [place] [address] 09276- 1200 Jun, Other fatigue R53.83 [facility] [id number] [place] [address] 340690- 1879 Jun, Other iron deficiency anemia D50.8 ; Nicotine abuse Z72.0 ; Anxiety F41.9 and Pulmonary emphysema, unspecified emphysema type J43.9 [facility] [id number] [place] [address] 25915- 4834 17 Jun, 2016 Low hemoglobin D64.9 [facility] [id number] [place] [address] 77819- 4031 16 Jun, 2016 Low hemoglobin D64.9 [facility] [id number] [place] [address] 75890- 7508 14 Jun, 2016 Anxiety F41.9 ; Nicotine abuse Z72.0 and Reactive depression F32.9 [facility] [id number] [place] [address] 23628- 0860 Jun, Anxiety F41.9 [facility] [id number] [place] [address] 45145- 8016 May, Anxiety F41.9 ; Nicotine abuse Z72.0 and Reactive depression F32.9 [place] [id number] [place] [address] 21457- 6029 May, Anxiety F41.9 [facility] [id number] [place] [address] 64893- 5061 May, Anxiety F41.9 ; Nicotine abuse Z72.0 and Reactive depression F32.9 [place] [id number] [place] [address] 28477- 6360 17 May, 2016 [place] [address] 68623- 0170 May, [facility] [id number] [place] [address] 22180- 1227 May, Anxiety F41.9 [facility] [id number] [place] [address] 04399- 1222 May, Other emphysema J43.8 ; Cramping of hands R25.2 ; Irritable bowel syndrome with diarrhea K58.0 ; Breast cancer screening Z12.39 ; Candidal stomatitis B37.0 and Candidal esophagitis B37.81 [place] [id number] [place] [address] 21155- 7985 Apr, Anxiety F41.9 [facility] [id number] [place] [address] 58562- 5713 Mar, Anxiety F41.9 [place] [address] 27960- 2349 Feb, Anxiety F41.9 [facility] [id number] [place] [address] 94115- 7449 Jan, Anxiety F41.9 [facility] [id number] [place] [address] 34613- 3669 Jan, Anxiety F41.9 [facility] [id number] [place] [address] 08646- 0909 Jan, Anxiety F41.9 [facility] [id number] [place] [address] 40508- 4042 Jan, Anxiety F41.9 ; Nicotine abuse Z72.0 ; Pulmonary emphysema, unspecified emphysema type J43.9 ; Memory loss R41.3 and Abdominal pain, unspecified location R10.9 [facility] [address] [address]- 8260 Jan, [facility] [id number] [place] [address] 80841- 9699 Dec, Anxiety F41.[address] [facility] [address] [address]9182 Dec, Right arm pain M79.601 [facility] [id number] [place] [address] 93576- 2461 Nov, Anxiety F41.9 [facility] [id number] [place] [address] 49508- 6560 Oct, Anxiety F41.9 [facility] [id number] [place] [address] 41159- 0682 Oct, [facility] [id number] [place] [address] 00034- 2702 Sep, Anxiety F41.9 [facility] [id number] [place] [address] 43244- 2350 Sep, Left lower quadrant pain R10.32 ; Memory loss R41.3 and Basal cell carcinoma of skin, unspecified C44.91 [facility] [address] [address]- 8549 Sep, Anxiety F41.9 [facility] [id number] [place] [address] 39879- 9564 August, Anxiety F41.9 [facility] [id number] [place] [address] 49999- 4912 August, Left lower quadrant pain R10.32 ; Memory loss R41.3 ; Pulmonary emphysema, unspecified emphysema type J43.9 and Depression, unspecified depression type F32.9 [facility] [address] [address]- 8582 August, [facility] [id number] [address]- 1317 Jul, [facility] [id number] [place] [address] 35694- 7788 Jun, [facility] [id number] [address]- 7106 May, [facility] [id number] [place] [address] 35791- 0075 Apr, [facility] [id number] [place] [address] 35694- 9007 Apr, Chronic obstructive pulmonary disease with acute exacerbation J44.1 ; Anxiety F41.9 and Nicotine abuse Z72.0 [facility] [id number] [place] [address] 83014- 0085 Apr, [facility] [id number] [place] [address] 78090- 7108 Mar, Anxiety disorder, unspecified F41.9 [facility] [id number] [place] [address] 93158- 6565 Mar, [facility] [id number] [place] [address] 61170- 8836 Feb, [facility] [id number] [place] [address] 79224- 5379 Nov, [facility] [id number] [place] [address] 00947- 7662 Nov, [facility] [address] [place] [address] 84998- 4449 Nov, Basal cell carcinoma 173.91 and Astigmatism with presbyopia 367.20 [facility] [id number] [place] [address] 36913- 1325 Oct, [facility] [id number] [address]- 4978 Oct, Lipoma 214.9 [facility] [id number] [address]- 0333 24 Sep, 2014 Ganglion cyst 727.43 ; Chronic airway obstruction, not elsewhere classified 496 ; Hypertension 401.9 ; CAD (coronary artery disease) 414.00 and Dysthymia 300.4 [facility] [id number] [address]- 5027 14 Jul, 2014 [facility] [address] 34989- 2082 Jul, [facility] [id number] [place] [address] 15590- 1673 Jun, [facility] [id number] [place] [address] 13114- 7560 Jun, [facility] [id number] [place] [address] 04359- 3719 Jun, [facility] [id number] [place] [address] 12878- 6306 Jun, [facility] [id number] [place] [address] 52884- 7299 May, [facility] [id number] [place] [address] 97570- 5176 May, [facility] [id number] [address]- 3866 Mar, [facility] [id number] [place] [address] 29079- 2504 Mar, [facility] [id number] [place] [address] 36313- 2304 Mar, [facility] [id number] [place] [address] 39555- 0576 Mar, [facility] [address] [address]- 9489 Feb, [facility] [id number] [place] [address] 19740- 1440 Feb, [facility] [place] [facility] [address] [id number] [place] [address]- 1098 Feb, [facility] [place] [facility] [address] [id number] [place] [address]- 6491 Feb, [facility] [place] [facility] [address] [id number] [place] [address]- 2896 Feb, [facility] [place] [facility] [address] [id number] [place] [address]- 9899 Feb, [facility] [place] [facility] [address] [id number] [place] [address]- 4122 Feb, [facility] [place] [facility] [address] [id number] [place] [address]- 9669 Feb, [facility] [place] [facility] [address] [id number] [place] [address]- 6318 Feb, [facility] [place] [facility] [address] [id number] [place] [address]- 5417 Feb, [facility] [place] [facility] [address] [id number] [place] [address]- 4419 Dec, [facility] [place] [facility] [address] [id number] [place] [address]- 7795 Dec, [facility] [place] [facility] [address] [id number] [place] [address]- 5013 Nov, [facility] [place] [facility] [address] [id number] [place] [address]- 2353 Oct, [facility] [place] [facility] [address] [id number] [place] [address]- 3021 Oct, [facility] [place] [facility] [address] [id number] [place] [address]- 3380 August, [facility] [place] [facility] [address] [id number] [place] [address]- 5605 August, [facility] [place] [facility] [address] [id number] [place] [address]- 2473 August, [facility] [place] [facility] [address] [id number] [place] [address]- 3955 August, [facility] [place] [facility] [address] [id number] [place] [address]- 1156 Jul, [facility] [place] [facility] [address] [id number] [place] [address]- 0602 Jul, [facility] [place] [facility] [address] [id number] [place] [address]- 7806 Jun, [facility] [place] [facility] [address] [id number] [place] [address]- 7885 Jun, [facility] [place] [facility] [address] [id number] [place] [address]- 5797 Jun, [facility] [place] [facility] [address] [id number] [place] [address]- 7905 Jun, [facility] [place] [facility] [address] [id number] [place] [address]- 2354 Jun, [facility] [place] [facility] [address] [id number] [place] [address]- 8143 Jun, [facility] [place] [facility] [address] [id number] [place] [address]- 3732 Jun, [facility] [place] [facility] [address] [id number] [place] [address]- 6449 Jun, [facility] [place] [facility] [address] [id number] [place] [address]- 5381 Jun, [facility] [place] [facility] [address] [id number] [place] [address]- 7169 Jun, [facility] [place] [facility] [address] [id number] [place] [address]- 6041 Jun, [facility] [place] [facility] [address] [id number] [place] [address]- 5198 Jun, [facility] [place] [facility] [address] [id number] [place] [address]- 2184 06 Jun, 2013 [facility] [place] [facility] [address] [id number] [place] [address]- 3431 Jun, [facility] [place] [facility] [address] [id number] [place] [address]- 4229 Jun, [facility] [place] [facility] [address] [id number] [place] [address]- 5070 Jun, [facility] [place] [facility] [address] [id number] [place] [address]- 6352 Jun, [facility] [place] [facility] [address] [id number] [place] [address]- 2394 Jun, [facility] [place] [facility] [address] [id number] [place] [address]- 7642 Jun, [facility] [place] [facility] [address] [id number] [place] [address]- 4735 May, [facility] [place] [facility] [address] [id number] [place] [address]- 1886 May, [facility] [place] [facility] [address] [id number] [place] [address]- 7713 May, [facility] [place] [facility] [address] [id number] [place] [address]- 1298 May, [facility] [place] [facility] [address] [id number] [place] [address]- 3422 Apr, [facility] [place] [facility] [address] [id number] [place] [address]- 2444 Apr, [facility] [place] [facility] [address] [id number] [place] [address]- 5290 Mar, [facility] [place] [facility] [address] [id number] [place] [address]- 9705 Mar, [facility] [place] [facility] [address] [id number] [place] [address]- 3964 Mar, 2012 [facility] [address] [id number] [place] [address]- 6995 Mar, 2012 [facility] [place] [facility] [address] [id number] [place] [address]- 4176 Mar, 2012 [facility] [address] [id number] [place] [address] Mar, 2012 [facility] [place] [facility] [address] [id number] [place] [address] Mar, 2012 [facility] [address] [id number] [place] [address] Mar, [facility] [place] [facility] [address] [id number] [place] [address] Mar, [facility] [address] [id number] [place] [address] Mar, [facility] [place] [facility] [address] [id number] [place] [address] Mar, [facility] [place] [facility] [address] [id number] [place] [address] Feb, [facility] [place] [facility] [address] [facility] [id number] [place] [address] Feb, [facility] [place] [facility] [address] [id number] [place] [address] Jan, [facility] [place] [facility] [address] [id number] [place] [address] Jan, [facility] [place] [facility] [address] [id number] [place] [address] Jan, [facility] [place] [facility] [address] [id number] [place] [address] Nov, [facility] [place] [facility] [address] [id number] [place] [address] Oct, [facility] [place] [facility] [address] [id number] [place] [address] Oct, [facility] [address] [id number] [place] [address] Oct, [facility] [address] [id number] [place] [address] Oct, [facility] [address] [id number] [place] [address] Oct, [facility] [address] [id number] [place] [address] Oct, [facility] [address] [id number] [place] [address] Oct, [facility] [address] [id number] [place] [address] Oct, [facility] [address] [id number] [place] [address] Sep, [facility] [address] [id number] [place] [address] Sep, [facility] [address] [id number] [place] [address] Sep, [facility] [address] [id number] [place] [address] Sep, [facility] [place] [facility] [address] [id number] [place] [address] August, [facility] [place] [facility] [address] [id number] [place] [address] August, [facility] [place] [facility] [address] [id number] [place] [address] August, [facility] [place] [facility] [address] [id number] [place] [address] August, [facility] [place] [facility] [address] [id number] [address] August, [facility] [address] [id number] [place] [address] August, [facility] [address] [id number] [place] [address] Jul, [facility] [address] [id number] [place] [address] May, [facility] [place] [facility] [address] [id number] [place] [address] Apr, [facility] [address] [id number] [place] [address] Apr, [facility] [address] [id number] [place] [address] Apr, [facility] [address] [id number] [place] [address] Mar, [facility] [address] [id number] [place] [address] Mar, [facility] [address] [id number] [place] [address] Mar, [facility] [place] [facility] [address] [id number] [place] [address] Mar, [facility] [address] [id number] [place] [address] Jan, [facility] [place] [facility] [address] [id number] [place] [address] Nov, [facility] [place] [facility] [address] [id number] [place] [address] Sep, [facility] [place] [facility] [address] [id number] [place] [address] August, [facility] [place] [facility] [address] [id number] [place] [address] August, [facility] [place] [facility] [id number] [address] Jul, 2011 [facility] [id number] [address] Jul, [facility] [id number] [address] Jul, [facility] [id number] [address] Jul, [facility] [address] [address] Jul, [facility] [id number] [place] [address] Jun, [facility] [id number] [address] Apr, [facility] [address] [address] Feb, [facility] [address] [address] Nov, [facility] [address] [address] Oct, [facility] [address] [address] Feb, [facility] [address] [address] August, [facility] [id number] [address] Jul, [facility] [id number] [address] Jun, IMMUNIZATIONS No Known Immunizations SOCIAL HISTORY Never Assessed [facility] VITAL SIGNS MEDICATIONS Unknown Medications RESULTS Name Result Date Reference Range [facility] 2017-06-13 PROCEDURES Procedure Date Ordered Result Body Site No Charge Jun 13, 2017 INSTRUCTIONS MEDICATIONS ADMINISTERED No Known Medications [...]
--- OUTSIDE RECORDS SUMMARY | 2017-12-30 00:38 | XMS REPORT ---
Author Author CASEY SIMPSON Organization [facility] [place] Address [address] [place] [address] Care Team Providers Care Take Up Operator Name Role Phone CASEY SIMPSON Unavailable PROBLEMS Type Condition ICD9-CM Code RQT16-AO Code Onset Dates Condition Status SNOMED Code Problem Memory loss R41.3 Active 25275888 Problem Other emphysema J43.8 Active 20656498 Problem Irritable bowel syndrome with diarrhea K58.0 Active 272870381 Problem Chronic prescription benzodiazepine use Z79.899 Active 415057417 Problem Benign familial tremor G25.0 Active 028032960 Problem Other iron deficiency anemia D50.8 Active 16320995 Problem Reactive depression F32.9 Active 43580519 Problem Coarse tremors G25.2 Active 60121327 Problem Claustrophobia F40.240 Active 96972632 Problem Essential hypertension I10 Active 95985090 Problem Anxiety F41.9 Active 03125353 Problem Nicotine abuse Z72.0 Active 37003495 Problem Supplemental oxygen dependent Z99.81 Active 718814978866 Problem Chronic obstructive pulmonary disease with acute exacerbation J44.1 Active 596031179 Problem CAD (coronary artery disease) 414.00 Active 31227034 Problem Pulmonary emphysema, unspecified emphysema type J43.9 Active 95259317 ALLERGIES No Information ENCOUNTERS Encounter Location Date Diagnosis [facility], [place] [id number] [address] Nov, [facility] [place] [id number] [place] [address] 35277- 7988 Nov, [facility] [place] [address] [place] [address] 90972- 1689 Sep, [facility] [place] [id number] [address] 4162 Sep, [facility] [place] [id number] [place] [address] 87282- 4249 14 Sep, 2017 Anxiety F41.9 [place] [address] 14635- 0554 13 Sep, 2017 Pulmonary emphysema, unspecified emphysema type J43.9 ; Other iron deficiency anemia D50.8 ; Pain of toe of left foot M79.675 and Pain in right toe(s) M79.674 [place] [address] 84495- 4071 05 Sep, 2017 Mouth pain K13.79 [place] [address] 70313- 1343 Sep, Pain, dental K08.89 [place] [address] 12317- 8203 Sep, [place] [address] 92308- 5303 Sep, Pulmonary emphysema, unspecified emphysema type J43.9 ; Nicotine abuse Z72.0 ; Diarrhea, unspecified type R19.7 ; Mouth pain K13.79 and Vision changes H53.9 [place] [id number] [place] [address] 79871- 7529 Sep, [place] [id number] [place] [address] 53005- 6824 August, Anxiety F41.9 [place] [id number] [place] [address] 14677- 6987 Jul, Anxiety F41.9 [place] [address] 25773- 2091 Jun, Pulmonary emphysema, unspecified emphysema type J43.9 and Anxiety F41.9 [place] [id number] [place] [address] 40211- 0454 Jun, Anxiety F41.9 [place] [address] 10763- 5598 Jun, [facility] [place] [id number] [place] [address] 68828- 8387 Jun, [facility] [place] [id number] [place] [address] 97519- 4182 Jun, [facility] [id number] [place] [address] 53197 -8948 Jun, Dysuria R30.0 and Acute cystitis with hematuria N30.01 [facility] [place] [id number] [place] [address] 53760- 8788 May, Anxiety F41.9 and Chronic prescription benzodiazepine use Z79.899 [place] [id number] [place] [address] 60136- 4799 May, Anxiety F41.9 and Chronic prescription benzodiazepine use Z79.899 [place] [id number] [place] [address] 19109- 3754 May, Benign familial tremor G25.0 [place] [id number] [place] [address] 56834- 3983 Apr, Other iron deficiency anemia D50.8 [place] [id number] [place] [address] 77978- 8582 Apr, Anxiety F41.9 [place] [id number] [place] [address] 20784- 0361 Apr, [facility] [place] [id number] [place] [address] 52771- 7282 Apr, Pancreatic cyst K86.2 ; Other iron deficiency anemia D50.8 ; Pulmonary emphysema, unspecified emphysema type J43.9 ; Coarse tremors G25.2 and Claustrophobia F40.240 [place] [id number] [place] [address] 25320- 2411 Apr, Anxiety F41.9 [place] [address] [place] [address]- 3818 Mar, [place] [id number] [place] [address] 62341- 7222 Mar, Anxiety F41.9 [place] [address] 85070- 3496 Feb, Anxiety F41.9 [place] [address] 21060- 8811 Jan, [place] [address] 06568- 7214 Jan, [place] [address] 35704- 0653 Jan, Anxiety F41.9 [place] [id number] [place] [address] 47374- 9308 Jan, Pulmonary emphysema, unspecified emphysema type J43.9 ; Encounter for immunization Z23 ; Other iron deficiency anemia D50.8 ; Anxiety F41.9 ; Diarrhea, unspecified type R19.7 and Memory loss R41.3 [place] [address] 87247- 9506 Dec, Anxiety F41.9 [place] [id number] [place] [address] 70955- 5373 Dec, Irritable bowel syndrome with diarrhea K58.0 [place] [id number] [place] [address] 82768- 2717 Dec, Diarrhea, unspecified type R19.7 [place] [id number] [place] [address] 59339- 6470 Nov, Acute non-recurrent maxillary sinusitis J01.00 ; Pulmonary emphysema, unspecified emphysema type J43.9 ; Diarrhea, unspecified type R19.7 and Other iron deficiency anemia D50.8 [place] [id number] [place] [address] 56962- 5690 Nov, [facility] [address] [address] Nov, Sore throat J02.9 and Strep pharyngitis J02.0 [facility] [place] [id number] [place] [address] 10324- 5732 Nov, Other iron deficiency anemia D50.8 [facility] [place] [id number] [place] [address] 12260- 0043 Nov, Anxiety F41.9 and Low hemoglobin D64.9 [place] [id number] [place] [address] 09823- 2948 Oct, Anxiety F41.9 [place] [id number] [place] [address] 25375- 4131 16 Sep, 2016 Anxiety F41.9 [place] [id number] [place] [address] 79051- 9074 Sep, Left upper quadrant pain R10.12 [place] [id number] [place] [address] 13755- 0238 Sep, Other iron deficiency anemia D50.8 and Left upper quadrant pain R10.12 [facility] [place] [id number] [place] [address] 55024- 8051 August, Anxiety F41.9 [place] [id number] [place] [address] 77306- 9205 August, Other iron deficiency anemia D50.8 and Left upper quadrant pain R10.12 [place] [id number] [place] [address] 88348- 2710 Jul, Other iron deficiency anemia D50.8 ; Acute gastric ulcer with hemorrhage K25.0 and Anxiety F41.9 [facility] [place] [id number] [place] [address] 23534- 5174 18 Jul, 2016 Other iron deficiency anemia D50.8 ; Other fatigue R53.83 ; Nicotine abuse Z72.0 ; Anxiety F41.9 and Pulmonary emphysema, unspecified emphysema type J43.9 [facility] [place] [id number] [place] [address] 98868- 6799 31 Jun, 2016 Other iron deficiency anemia D50.8 and Hematochezia K92.1 [facility] [place] [id number] [place] [address] 95033- 4534 27 Jun, 2016 Other fatigue R53.83 and Other iron deficiency anemia D50.8 [place] [id number] [place] [address] 76569- 4092 Jun, Other fatigue R53.83 [place] [id number] [place] [address] 041353- 1680 Jun, Other iron deficiency anemia D50.8 ; Nicotine abuse Z72.0 ; Anxiety F41.9 and Pulmonary emphysema, unspecified emphysema type J43.9 [place] [id number] [place] [address] 56659- 5491 17 Jun, 2016 Low hemoglobin D64.9 [place] [id number] [place] [address] 67142- 6467 16 Jun, 2016 Low hemoglobin D64.9 [place] [id number] [place] [address] 34329- 6129 14 Jun, 2016 Anxiety F41.9 ; Nicotine abuse Z72.0 and Reactive depression F32.9 [place] [id number] [place] [address] 44303- 6344 Jun, Anxiety F41.9 [place] [id number] [place] [address] 25071- 5714 May, Anxiety F41.9 ; Nicotine abuse Z72.0 and Reactive depression F32.9 [place] [id number] [place] [address] 45507- 6438 May, Anxiety F41.9 [place] [id number] [place] [address] 55065- 1535 May, Anxiety F41.9 ; Nicotine abuse Z72.0 and Reactive depression F32.9 [place] [id number] [place] [address] 67626- 0866 17 May, 2016 [place] [address] 41309- 2870 May, [place] [id number] [place] [address] 04041- 5647 May, Anxiety F41.9 [place] [id number] [place] [address] 74412- 6472 May, Other emphysema J43.8 ; Cramping of hands R25.2 ; Irritable bowel syndrome with diarrhea K58.0 ; Breast cancer screening Z12.39 ; Candidal stomatitis B37.0 and Candidal esophagitis B37.81 [place] [id number] [place] [address] 61266- 9884 Apr, Anxiety F41.9 [place] [id number] [place] [address] 73049- 7897 Mar, Anxiety F41.9 [place] [address] 00249- 8436 Feb, Anxiety F41.9 [place] [id number] [place] [address] 80997- 3929 Jan, Anxiety F41.9 [place] [id number] [place] [address] 10253- 4917 Jan, Anxiety F41.9 [place] [id number] [place] [address] 34850- 8272 Jan, Anxiety F41.9 [place] [id number] [place] [address] 88964- 7651 Jan, Anxiety F41.9 ; Nicotine abuse Z72.0 ; Pulmonary emphysema, unspecified emphysema type J43.9 ; Memory loss R41.3 and Abdominal pain, unspecified location R10.9 [facility] [place] [address] [address]- 6153 Jan, [facility] [place] [id number] [place] [address] 25277- 3320 Dec, Anxiety F41.9 [facility] [address] [address] Dec, Right arm pain M79.601 [facility] [place] [id number] [place] [address] 58771- 2013 Nov, Anxiety F41.9 [facility] [place] [id number] [place] [address] 33213- 6164 Oct, Anxiety F41.9 [facility] [place] [address] [place] [address] 80526- 7741 Oct, [facility] [place] [id number] [place] [address] 14091- 9812 Sep, Anxiety F41.9 [facility] [place] [id number] [place] [address] 05323- 4315 Sep, Left lower quadrant pain R10.32 ; Memory loss R41.3 and Basal cell carcinoma of skin, unspecified C44.91 [facility] [place] [address] [address]- 7525 Sep, Anxiety F41.9 [facility] [place] [address] [place] [address] 33509- 7445 August, Anxiety F41.9 [facility] [place] [address] [place] [address] 66939- 0239 August, Left lower quadrant pain R10.32 ; Memory loss R41.3 ; Pulmonary emphysema, unspecified emphysema type J43.9 and Depression, unspecified depression type F32.9 [facility] [place] [address] [address]- 8227 August, [facility] [place] [id number] [address]- 6199 Jul, [facility] [place] [id number] [place] [address] 60427- 9305 Jun, [facility] [place] [id number] [address]- 9772 May, [facility] [place] [id number] [place] [address] 23861- 0310 Apr, [facility] [place] [id number] [place] [address] 73188- 7351 Apr, Chronic obstructive pulmonary disease with acute exacerbation J44.1 ; Anxiety F41.9 and Nicotine abuse Z72.0 [facility] [place] [id number] [place] [address] 85087- 3658 Apr, [facility] [place] [id number] [place] [address] 33981- 3689 Mar, Anxiety disorder, unspecified F41.9 [facility] [place] [id number] [place] [address] 07509- 2938 Mar, [facility] [place] [id number] [place] [address] 04689- 8599 Feb, [facility] [place] [id number] [place] [address] 50343- 7573 Nov, [facility] [place] [id number] [place] [address] 78364- 5219 Nov, [facility] [place] [address] [place] [address] 97736- 8780 Nov, Basal cell carcinoma 173.91 and Astigmatism with presbyopia 367.20 [facility] [place] [id number] [place] [address] 44296- 0638 Oct, [facility] [place] [id number] [address]- 3497 Oct, Lipoma 214.9 [facility] [place] [id number] [address]- 9964 24 Sep, 2014 Ganglion cyst 727.43 ; Chronic airway obstruction, not elsewhere classified 496 ; Hypertension 401.9 ; CAD (coronary artery disease) 414.00 and Dysthymia 300.4 [facility] [place] [id number] [address]- 0648 14 Jul, 2014 [facility] [place] [address] 26345- 8951 Jul, [facility] [place] [id number] [place] [address] 98677- 9482 Jun, [facility] [place] [id number] [place] [address] 18369- 7651 Jun, [facility] [place] [id number] [place] [address] 09888- 2640 Jun, [facility] [place] [id number] [place] [address] 64406- 6516 Jun, [facility] [place] [id number] [place] [address] 52465- 3072 May, [facility] [place] [id number] [place] [address] 44376- 7012 May, [facility] [place] [id number] [address]- 9978 Mar, [facility] [place] [address] [place] [address] 93332- 0199 Mar, [facility] [place] [address] [place] [address] 50027- 5676 Mar, [facility] [place] [id number] [place] [address] 09651- 2521 Mar, [facility] [place] [address] [address]- 3072 Feb, [facility] [place] [id number] [place] [address] 44679- 1099 Feb, [facility] [place] [facility] [address] [id number] [place] [address]- 5965 Feb, [facility] [place] [facility] [address] [id number] [place] [address]- 7845 Feb, [facility] [place] [facility] [address] [id number] [place] [address]- 5545 Feb, [facility] [place] [facility] [address] [id number] [place] [address]- 2242 Feb, [facility] [place] [facility] [address] [id number] [place] [address]- 5867 Feb, [facility] [place] [facility] [address] [id number] [place] [address]- 7454 Feb, [facility] [place] [facility] [address] [id number] [place] [address]- 9803 Feb, [facility] [place] [facility] [address] [id number] [place] [address]- 6333 Feb, [facility] [place] [facility] [address] [id number] [place] [address]- 4982 Dec, [facility] [place] [facility] [address] [id number] [place] [address]- 7752 Dec, [facility] [place] [facility] [address] [id number] [place] [address]- 5780 Nov, [facility] [place] [facility] [address] [id number] [place] [address]- 6206 Oct, [facility] [place] [facility] [address] [id number] [place] [address]- 1520 Oct, [facility] [place] [facility] [address] [id number] [place] [address]- 1285 August, [facility] [place] [facility] [address] [id number] [place] [address]- 3917 August, [facility] [place] [facility] [address] [id number] [place] [address]- 1787 August, [facility] [place] [facility] [address] [id number] [place] [address]- 8976 August, [facility] [place] [facility] [address] [id number] [place] [address]- 9966 Jul, [facility] [place] [facility] [address] [id number] [place] [address]- 0838 Jul, [facility] [place] [facility] [address] [id number] [place] [address]- 6424 Jun, [facility] [place] [facility] [address] [id number] [place] [address]- 7218 Jun, [facility] [place] [facility] [address] [id number] [place] [address]- 7559 Jun, [facility] [place] [facility] [address] [id number] [place] [address]- 0408 Jun, [facility] [place] [facility] [address] [id number] [place] [address]- 3888 Jun, [facility] [place] [facility] [address] [id number] [place] [address]- 7631 Jun, [facility] [place] [facility] [address] [id number] [place] [address]- 6463 Jun, [facility] [place] [facility] [address] [id number] [place] [address]- 2830 Jun, [facility] [place] [facility] [address] [id number] [place] [address]- 9563 Jun, [facility] [place] [facility] [address] [id number] [place] [address]- 1071 Jun, [facility] [place] [facility] [address] [id number] [place] [address]- 7871 Jun, [facility] [place] [facility] [address] [id number] [place] [address]- 2500 Jun, [facility] [place] [facility] [address] [id number] [place] [address]- 3504 06 Jun, 2013 [facility] [place] [facility] [address] [id number] [place] [address]- 3471 Jun, [facility] [place] [facility] [address] [id number] [place] [address]- 3053 Jun, [facility] [place] [facility] [address] [id number] [place] [address]- 4409 Jun, [facility] [place] [facility] [address] [id number] [place] [address]- 8176 Jun, [facility] [place] [facility] [address] [id number] [place] [address]- 7056 Jun, [facility] [place] [facility] [address] [id number] [place] [address]- 6265 Jun, [facility] [place] [facility] [address] [id number] [place] [address]- 6626 May, [facility] [place] [facility] [address] [id number] [place] [address]- 9034 May, [facility] [place] [facility] [address] [id number] [place] [address] May, [facility] [place] [facility] [address] [id number] [place] [address] May, [facility] [place] [facility] [address] [id number] [place] [address] Apr, [facility] [place] [facility] [address] [id number] [place] [address] Apr, [facility] [place] [facility] [address] [id number] [place] [address] Mar, [facility] [place] [facility] [address] [id number] [place] [address] Mar, [facility] [place] [facility] [address] [id number] [place] [address] Mar, 2012 [facility] [address] [id number] [place] [address] Mar, 2012 [facility] [place] [facility] [address] [id number] [place] [address] Mar, 2012 [facility] [address] [id number] [place] [address] Mar, 2012 [facility] [place] [facility] [address] [id number] [place] [address] Mar, 2012 [facility] [address] [id number] [place] [address] Mar, [facility] [place] [facility] [address] [id number] [place] [address] Mar, [facility] [address] [id number] [place] [address] Mar, [facility] [place] [facility] [address] [id number] [place] [address] Mar, [facility] [place] [facility] [address] [id number] [place] [address] Feb, [facility] [place] [facility] [address] [facility] [id number] [place] [address] Feb, [facility] [place] [facility] [address] [id number] [place] [address] Jan, [facility] [place] [facility] [address] [id number] [place] [address] Jan, [facility] [place] [facility] [address] [id number] [place] [address] Jan, [facility] [place] [facility] [address] [id number] [place] [address] Nov, [facility] [place] [facility] [address] [id number] [place] [address] Oct, [facility] [place] [facility] [address] [id number] [place] [address] Oct, [facility] [address] [id number] [place] [address] Oct, [facility] [address] [id number] [place] [address] Oct, [facility] [address] [id number] [place] [address] Oct, [facility] [address] [id number] [place] [address] Oct, [facility] [address] [id number] [place] [address] Oct, [facility] [address] [id number] [place] [address] Oct, [facility] [address] [id number] [place] [address] Sep, [facility] [address] [id number] [place] [address] Sep, [facility] [address] [id number] [place] [address] Sep, [facility] [address] [id number] [place] [address] Sep, [facility] [place] [facility] [address] [id number] [place] [address] August, [facility] [place] [facility] [address] [id number] [place] [address] August, [facility] [place] [facility] [address] [id number] [place] [address]- [address] August, [facility] [place] [facility] [address] [id number] [place] [address] August, [facility] [place] [facility] [address] [id number] [address] August, [facility] [address] [id number] [place] [address] August, [facility] [address] [id number] [place] [address] Jul, [facility] [address] [id number] [place] [address]- [id number] May, [facility] [place] [facility] [address] [id number] [place] [address] Apr, [facility] [address] [id number] [place] [address] Apr, [facility] [address] [id number] [place] [address] Apr, [facility] [address] [id number] [place] [address] Mar, [facility] [address] [id number] [place] [address] Mar, [facility] [address] [id number] [place] [address] Mar, [facility] [place] [facility] [address] [id number] [place] [address] Mar, [facility] [address] [id number] [place] [address] Jan, [facility] [place] [facility] [address] [id number] [place] [address] Nov, [facility] [place] [facility] [address] [id number] [place] [address] Sep, [facility] [place] [facility] [address] [id number] [place] [address] August, [facility] [place] [facility] [address] [id number] [place] [address] August, [facility] [place] [facility] [id number] [address] Jul, [facility] [place] [id number] [address] Jul, [facility], [place] [id number] [address] Jul, [facility], [place] [id number] [address] Jul, [facility], [place] [id number] [address] Jul, [facility], [place] [id number] [address] Jun, [facility], [place] [id number] [address] Apr, [facility], [place] [id number] [address] Feb, [facility], [place] [id number] [address] Nov, [facility], [place] [id number] [address] Oct, [facility], [place] [id number] [address] Feb, [facility], [place] [id number] [address] August, [facility], [place] [id number] [address] Jul, [facility], [place] [id number] [address] Jun, IMMUNIZATIONS No Known Immunizations SOCIAL HISTORY Never Assessed REASON FOR VISIT Start Primidone - Dr Villalpando PLAN OF CARE VITAL SIGNS MEDICATIONS Medication Instructions Dosage Frequency Start Date End Date Duration Status Primidone 50 mg Orally bid for 10 days then 2 bid 1 tablet May, Active RESULTS No Results PROCEDURES No Known [...]
--- OUTSIDE RECORDS SUMMARY | 2017-12-30 00:40 | XMS REPORT ---
Author Author CASEY SIMPSON Organization [facility] Address [address] [place] [address] Care Team Providers Care Vat Skimmer Name Role Phone CASEY SIMPSON Unavailable PROBLEMS Type Condition ICD9-CM Code SKU82-XM Code Onset Dates Condition Status SNOMED Code Problem Memory loss R41.3 Active 81315644 Problem Other emphysema J43.8 Active 60203446 Problem Irritable bowel syndrome with diarrhea K58.0 Active 474620115 Problem Chronic prescription benzodiazepine use Z79.899 Active 223368852 Problem Benign familial tremor G25.0 Active 163203710 Problem Other iron deficiency anemia D50.8 Active 34134085 Problem Reactive depression F32.9 Active 80086753 Problem Coarse tremors G25.2 Active 80953884 Problem Claustrophobia F40.240 Active 20117590 Problem Essential hypertension I10 Active 10065467 Problem Anxiety F41.9 Active 27662319 Problem Nicotine abuse Z72.0 Active 42257736 Problem Supplemental oxygen dependent Z99.81 Active 704000468825 Problem Chronic obstructive pulmonary disease with acute exacerbation J44.1 Active 381755778 Problem CAD (coronary artery disease) 414.00 Active 39762413 Problem Pulmonary emphysema, unspecified emphysema type J43.9 Active 63152161 ALLERGIES No Information ENCOUNTERS Encounter Location Date Diagnosis [facility] [address], [place] [address] Sep, [facility] [id number] [place] [address] 44838- 6396 Sep, [facility] [id number] [place] [address] 73885- 8130 Sep, [facility] [address] [address] 45[address] Sep, [facility] [id number] [place] [address] 02959- 4284 August, Anxiety F41.9 [facility] [address] [address]- 7131 Jul, Anxiety F41.9 [facility] [id number] [place] [address] 92637- 3164 Jun, Pulmonary emphysema, unspecified emphysema type J43.9 and Anxiety F41.9 [facility] [id number] [place] [address] 90889- 7446 Jun, Anxiety F41.9 [facility] [address] 8[address]85- 5546 Jun, [facility] [id number] [place] [address] 50065- 1609 Jun, [facility] [address] 44292- 1447 Jun, [facility] [id number] [place] [address] 47411 -3978 Jun, Dysuria R30.0 and Acute cystitis with hematuria N30.01 [facility] [id number] [place] [address] 68418- 8019 May, Anxiety F41.9 and Chronic prescription benzodiazepine use Z79.899 [facility] [id number] [place] [address] 60688- 9711 May, Anxiety F41.9 and Chronic prescription benzodiazepine use Z79.899 [facility] [id number] [place] [address] 62012- 0038 May, Benign familial tremor G25.0 [facility] [id number] [place] [address] 14578- 1152 Apr, Other iron deficiency anemia D50.8 [facility] [id number] [place] [address] 90944- 7796 Apr, Anxiety F41.9 [facility] [address] 13597- 2512 Apr, [place] [address] 61488- 2943 Apr, Pancreatic cyst K86.2 ; Other iron deficiency anemia D50.8 ; Pulmonary emphysema, unspecified emphysema type J43.9 ; Coarse tremors G25.2 and Claustrophobia F40.240 [place] [address] 46496- 4749 Apr, Anxiety F41.9 [place] [address] 63613- 9676 Mar, [place] [address] 98412- 6072 Mar, Anxiety F41.9 [place] [address] 87419- 0584 Feb, Anxiety F41.9 [place] [address] 54362- 9172 Jan, [place] [address] 01995- 1787 Jan, [place] [id number] [place] [address] 42755- 4550 Jan, Anxiety F41.9 [place] [address] 94295- 9968 Jan, Pulmonary emphysema, unspecified emphysema type J43.9 ; Encounter for immunization Z23 ; Other iron deficiency anemia D50.8 ; Anxiety F41.9 ; Diarrhea, unspecified type R19.7 and Memory loss R41.3 [place] [id number] [place] [address] 04169- 8833 Dec, Anxiety F41.9 [place] [address] 77810- 0071 Dec, Irritable bowel syndrome with diarrhea K58.0 [facility] [id number] [place] [address] 65704- 8269 05 Dec, 2016 Diarrhea, unspecified type R19.7 [place] [id number] [place] [address] 01389- 4769 Nov, Acute non-recurrent maxillary sinusitis J01.00 ; Pulmonary emphysema, unspecified emphysema type J43.9 ; Diarrhea, unspecified type R19.7 and Other iron deficiency anemia D50.8 [place] [id number] [place] [address] 73229- 8257 Nov, [facility] [id number] [place] [address] 61332 -0218 Nov, Sore throat J02.9 and Strep pharyngitis J02.0 [place] [id number] [place] [address] 79203- 2533 Nov, Other iron deficiency anemia D50.8 [place] [id number] [place] [address] 33795- 5995 Nov, Anxiety F41.9 and Low hemoglobin D64.9 [place] [id number] [place] [address] 58140- 2216 Oct, Anxiety F41.9 [place] [id number] [place] [address] 36445- 1072 Sep, Anxiety F41.9 [place] [id number] [place] [address] 86013- 9958 13 Sep, 2016 Left upper quadrant pain R10.12 [place] [id number] [place] [address] 05925- 3708 07 Sep, 2016 Other iron deficiency anemia D50.8 and Left upper quadrant pain R10.12 [place] [id number] [place] [address] 64577- 7240 August, Anxiety F41.9 [place] [id number] [place] [address] 64342- 8413 August, Other iron deficiency anemia D50.8 and Left upper quadrant pain R10.12 [place] [id number] [place] [address] 10270- 9305 Jul, Other iron deficiency anemia D50.8 ; Acute gastric ulcer with hemorrhage K25.0 and Anxiety F41.9 [place] [id number] [place] [address] 28418- 2389 18 Jul, 2016 Other iron deficiency anemia D50.8 ; Other fatigue R53.83 ; Nicotine abuse Z72.0 ; Anxiety F41.9 and Pulmonary emphysema, unspecified emphysema type J43.9 [place] [id number] [place] [address] 86389- 1315 31 Jun, 2016 Other iron deficiency anemia D50.8 and Hematochezia K92.1 [place] [id number] [place] [address] 69670- 2624 Jun, Other fatigue R53.83 and Other iron deficiency anemia D50.8 [place] [id number] [place] [address] 80215- 1016 Jun, Other fatigue R53.83 [place] [id number] [place] [address] 19092- 2001 Jun, Other iron deficiency anemia D50.8 ; Nicotine abuse Z72.0 ; Anxiety F41.9 and Pulmonary emphysema, unspecified emphysema type J43.9 [place] [id number] [place] [address] 44731- 3361 17 Jun, 2016 Low hemoglobin D64.9 [place] [id number] [place] [address] 24126- 7656 16 Jun, 2016 Low hemoglobin D64.9 [place] [id number] [place] [address] 72282- 0551 14 Jun, 2016 Anxiety F41.9 ; Nicotine abuse Z72.0 and Reactive depression F32.9 [facility] [id number] [place] [address] 70853- 0394 Jun, Anxiety F41.9 [facility] [id number] [place] [address] 72365- 3661 May, Anxiety F41.9 ; Nicotine abuse Z72.0 and Reactive depression F32.9 [facility] [address] 38485- 2434 May, Anxiety F41.9 [place] [id number] [place] [address] 08913- 7563 May, Anxiety F41.9 ; Nicotine abuse Z72.0 and Reactive depression F32.9 [place] [id number] [place] [address] 95104- 1565 May, [place] [address] 72557- 9920 May, [place] [id number] [place] [address] 13989- 8570 May, Anxiety F41.9 [place] [id number] [place] [address] 93756- 5926 May, Other emphysema J43.8 ; Cramping of hands R25.2 ; Irritable bowel syndrome with diarrhea K58.0 ; Breast cancer screening Z12.39 ; Candidal stomatitis B37.0 and Candidal esophagitis B37.81 [place] [id number] [place] [address] 32864- 3802 Apr, Anxiety F41.9 [place] [id number] [place] [address] 45402- 1395 Mar, Anxiety F41.9 [place] [id number] [place] [address] 96588- 7029 Feb, Anxiety F41.9 [place] [address] [place] [address]- 4038 Jan, Anxiety F41.9 [facility] [address] 35259- 9134 Jan, Anxiety F41.9 [facility] [id number] [place] [address] 20283- 3409 Jan, Anxiety F41.9 [facility] [id number] [place] [address] 78633- 9957 Jan, Anxiety F41.9 ; Nicotine abuse Z72.0 ; Pulmonary emphysema, unspecified emphysema type J43.9 ; Memory loss R41.3 and Abdominal pain, unspecified location R10.9 [facility] [id number] [place] [address] 73721- 7911 Jan, [facility] [id number] [place] [address] 88962- 6319 Dec, Anxiety F41.9 [facility] [id number] [place] [address] 13216 -1954 Dec, Right arm pain M79.601 [facility] [id number] [place] [address] 53289- 1309 Nov, Anxiety F41.9 [facility] [id number] [place] [address] 26277- 1625 Oct, Anxiety F41.9 [facility] [id number] [place] [address] 87737- 9650 Oct, [facility] [id number] [place] [address] 55985- 6207 Sep, Anxiety F41.9 [facility] [id number] [place] [address] 77664- 6292 Sep, Left lower quadrant pain R10.32 ; Memory loss R41.3 and Basal cell carcinoma of skin, unspecified C44.91 [facility] [id number] [address]- 6548 Sep, Anxiety F41.9 [facility] [address] [place] [address] 73882- 5197 August, Anxiety F41.9 [facility] [address] [place] [address] 59970- 9814 August, Left lower quadrant pain R10.32 ; Memory loss R41.3 ; Pulmonary emphysema, unspecified emphysema type J43.9 and Depression, unspecified depression type F32.9 [facility] [address] [place] [address] 32437- 6383 August, [facility] [id number] [place] [address] 80343- 3695 Jul, [facility] [id number] [place] [address] 08890- 3306 Jun, [facility] [id number] [place] [address] 46581- 4918 May, [facility] [address] [place] [address] 60184- 6313 Apr, [facility] [address] [place] [address] 84643- 4326 Apr, Chronic obstructive pulmonary disease with acute exacerbation J44.1 ; Anxiety F41.9 and Nicotine abuse Z72.0 [facility] [address], [place] [address]- 5570 Apr, [facility] [address] [place] [address] 91303- 5285 Mar, Anxiety disorder, unspecified F41.9 [facility] [address] [place] [address] 19262- 8673 Mar, [facility] [address] [place] [address] 24795- 5098 Feb, [facility] [id number] [place] [address] 46763- 5278 Nov, [facility] [address]- 0454 Nov, [facility] [id number] [place] [address] 85326- 9151 Nov, Basal cell carcinoma 173.91 and Astigmatism with presbyopia 367.20 [facility] [id number] [place] [address] 78646- 6498 Oct, [facility] [id number] [place] [address] 018392- 8443 Oct, Lipoma 214.9 [facility] [id number] [place] [address] 85908- 9957 Sep, Ganglion cyst 727.43 ; Chronic airway obstruction, not elsewhere classified 496 ; Hypertension 401.9 ; CAD (coronary artery disease) 414.00 and Dysthymia 300.4 [facility] [id number] [address]- 2943 Jul, [facility] [id number] [place] [address] 60212- 0736 Jul, [facility] [id number] 3493 Jun, [facility] [address] 3669 Jun, [facility] [address], [place] [address]- 4571 Jun, [facility] [address], [place] [address]- 0631 Jun, [facility] [id number] [place] [address] 74114- 0687 May, [facility] [address], [place] [address]- 8886 May, [facility] [address] [place] [address]- 4252 12 Mar, 2014 [facility] [place] [facility] [address] [id number] [place] [address]- 5803 Mar, [facility] [place] [facility] [address] [id number] [place] [address]- 1955 Mar, [facility] [place] [facility] [address] [id number] [place] [address]- 9044 05 Mar, 2014 [facility] [place] [facility] [address] [id number] [place] [address]- 0100 Feb, [facility] [place] [facility] [address] [id number] [place] [address]- 2456 Feb, [facility] [place] [facility] [address] [id number] [place] [address]- 8273 Feb, [facility] [place] [facility] [address] [id number] [place] [address]- 2872 Feb, [facility] [place] [facility] [address] [id number] [place] [address]- 2732 Feb, [facility] [place] [facility] [address] [id number] [place] [address]- 0375 Feb, [facility] [place] [facility] [address] [id number] [place] [address]- 9366 Feb, [facility] [place] [facility] [address] [id number] [place] [address]- 7360 Feb, [facility] [place] [facility] [address] [id number] [place] [address]- 1911 Feb, [facility] [place] [facility] [address] [id number] [place] [address]- 9225 Feb, [facility] [place] [facility] [address] [id number] [place] [address]- 5675 17 Dec, 2013 [facility] [place] [facility] [address] [id number] [place] [address]- 3406 Dec, [facility] [place] [facility] [address] [id number] [place] [address]- 8938 Nov, [facility] [place] [facility] [address] [id number] [place] [address]- 0243 Oct, [facility] [place] [facility] [address] [id number] [place] [address]- 4662 Oct, [facility] [place] [facility] [address] [id number] [place] [address]- 4099 August, [facility] [place] [facility] [address] [id number] [place] [address]- 8396 August, [facility] [place] [facility] [address] [id number] [place] [address]- 8444 August, [facility] [place] [facility] [address] [id number] [place] [address]- 6610 August, [facility] [place] [facility] [address] [id number] [place] [address]- 0968 Jul, [facility] [place] [facility] [address] [id number] [place] [address]- 3652 Jul, [facility] [place] [facility] [address] [id number] [place] [address]- 2479 Jun, [facility] [place] [facility] [address] [id number] [place] [address]- 3216 Jun, [facility] [place] [facility] [address] [id number] [place] [address]- 0907 Jun, [facility] [place] [facility] [address] [id number] [place] [address]- 1869 Jun, [facility] [place] [facility] [address] [id number] [place] [address]- 0298 Jun, [facility] [place] [facility] [address] [id number] [place] 2966 Jun, [facility] [place] [facility] [address] [id number] [address]- 9285 12 Jun, 2013 [facility] [place] [facility] [address] [id number] [place] [address]- 5245 10 Jun, 2013 [facility] [place] [facility] [address] [id number] [place] [address]- 0586 10 Jun, 2013 [facility] [place] [facility] [address] [id number] [place] [address]- 5829 10 Jun, 2013 [facility] [place] [facility] [address] [id number] [place] [address]- 9659 10 Jun, 2013 [facility] [place] [facility] [address] [id number] [place] [address]- 3137 Jun, [facility] [place] [facility] [address] [id number] [place] [address]- 1653 Jun, [facility] [place] [facility] [address] [id number] [place] [address]- 2832 Jun, [facility] [place] [facility] [address] [id number] [place] [address]- 4498 04 Jun, 2013 [facility] [place] [facility] [address] [id number] [place] [address]- 0235 04 Jun, 2013 [facility] [place] [facility] [address] [facility] [id number] [place] [address]- 7670 Jun, [facility] [place] [facility] [address] [id number] [place] [address]- 6069 Jun, [facility] [place] [facility] [address] [id number] [place] [address]- 9518 Jun, [facility] [place] [facility] [address] [id number] [place] [address]- 3898 May, [facility] [place] [facility] [address] [id number] [place] [address]- 4396 May, [facility] [place] [facility] [address] [facility] [id number] [place] [address]- 0151 05 May, 2013 [facility] [place] [facility] [address] [id number] [place] [address]- 3590 May, [facility] [address] [id number] [place] [address]- 1593 Apr, [facility] [address] [id number] [place] [address]- 8913 Apr, [facility] [address] [id number] [place] [address]- 0662 Mar, [facility] [address] [id number] [place] [address]- 0684 Mar, [facility] [address] [id number] [place] [address]- 3415 Mar, [facility] [address] [id number] [place] [address]- 4708 Mar, [facility] [address] [id number] [place] [address]- 8683 Mar, [facility] [address] [id number] [place] [address]- 2501 Mar, [facility] [address] [id number] [place] [address]- 6508 Mar, [facility] [address] [id number] [place] [address] Mar, [facility] [place] [facility] [address] [id number] [place] [address] Mar, [facility] [place] [facility] [address] [id number] [place] [address] Mar, [facility] [place] [facility] [address] [id number] [place] [address] Mar, [facility] [place] [facility] [address] [id number] [place] [address] Feb, [facility] [place] [facility] [address] [id number] [place] [address] Feb, [facility] [place] [facility] [address] [id number] [place] [address] Jan, [facility] [place] [facility] [address] [id number] [place] [address] Jan, [facility] [place] [facility] [address] [id number] [place] [address] Jan, [facility] [place] [facility] [address] [id number] [place] [address] Nov, [facility] [place] [facility] [address] [id number] [place] [address] Oct, [facility] [place] [facility] [address] [id number] [place] [address] Oct, [facility] [place] [facility] [address] [id number] [place] [address] Oct, [facility] [place] [facility] [address] [id number] [place] [address] Oct, [facility] [place] [facility] [address] [id number] [place] [address] Oct, [facility] [place] [facility] [address] [id number] [place] [address] Oct, [facility] [place] [facility] [address] [id number] [place] [address] Oct, [facility] [place] [facility] [address] [id number] [place] [address] Oct, [facility] [place] [facility] [address] [id number] [place] [address] Sep, [facility] [place] [facility] [address] [id number] [place] [address] Sep, [facility] [place] [facility] [address] [id number] [place] [address] Sep, [facility] [place] [facility] [address] [id number] [place] [address] Sep, [facility] [address] [id number] [place] [address] August, [facility] [address] [id number] [place] [address] August, [facility] [address] [id number] [place] [address] August, [facility] [address] [id number] [place] [address] August, [facility] [address] [id number] [place] [address] August, [facility] [address] [id number] [place] [address] August, [facility] [address] [id number] [place] [address] Jul, [facility] [address] [id number] [place] [address] May, [facility] [address] [id number] [place] [address] Apr, [facility] [address] [id number] [place] [address] Apr, [facility] [address] [id number] [place] [address] Apr, [facility] [address] [id number] [place] [address] Mar, [facility] [address] [id number] [place] [address] Mar, [facility] [address] [id number] [place] [address] Mar, [facility] [address] [id number] [place] [address] Mar, [facility] [place] [facility] [address] [id number] [place] [address] Jan, [facility] [place] [facility] [address] [id number] [place] [address] Nov, [facility] [place] [facility] [address] [id number] [place] [address] Sep, [facility] [place] [facility] [address] [id number] [place] [address] August, [facility] [place] [facility] [address] [id number] [place] [address] August, [facility] [place] [facility] [address] [id number] [place] [address] Jul, [facility] [place] [facility] [address] [id number] [place] [address] Jul, [facility] [place] [facility] [address] [id number] [place] [address] Jul, [facility] [place] [facility] [address] [id number] [place] [address] Jul, [facility] [place] [facility] [address] [id number] [place] [address] Jul, [facility] [place] [facility] [address] [id number] [place] [address] Jun, [facility] [place] [facility] [address] [id number] [place] [address] Apr, [facility] [place] [facility] [address] [id number] [place] [address] Feb, [facility] [place] [facility] [address] [id number] [place] [address] Nov, [facility] [place] [facility] [address] [id number] [place] [address] Oct, [facility] [place] [facility] [address] [id number], [place] [address] 10 Feb, 2010 [facility] [address] [facility] [id number], [place] [address] August, [facility] [address] [facility] [id number], [place] [address] Jul, [facility] [address] [facility] [id number], [place] [address] 10 Jun, 2008 IMMUNIZATIONS No Known Immunizations SOCIAL HISTORY Never Assessed REASON FOR VISIT Lorazepam PLAN OF CARE VITAL SIGNS MEDICATIONS Unknown [...]
--- OUTSIDE RECORDS SUMMARY | 2017-12-30 00:40 | XMS REPORT ---
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 Name Role Phone CASEY SIMPSON Unavailable PROBLEMS Type Condition ICD9-CM Code ZFM44-HG Code Onset Dates Condition Status SNOMED Code Problem Memory loss R41.3 Active 79820134 Problem Other emphysema J43.8 Active 78377967 Problem Irritable bowel syndrome with diarrhea K58.0 Active 130123237 Problem Chronic prescription benzodiazepine use Z79.899 Active 101151145 Problem Benign familial tremor G25.0 Active 123603428 Problem Other iron deficiency anemia D50.8 Active 67319425 Problem Reactive depression F32.9 Active 76033132 Problem Coarse tremors G25.2 Active 28350109 Problem Claustrophobia F40.240 Active 66972328 Problem Essential hypertension I10 Active 84913185 Problem Anxiety F41.9 Active 77157368 Problem Nicotine abuse Z72.0 Active 19942950 Problem Supplemental oxygen dependent Z99.81 Active 510100446331 Problem Chronic obstructive pulmonary disease with acute exacerbation J44.1 Active 685752833 Problem CAD (coronary artery disease) 414.00 Active 49744918 Problem Pulmonary emphysema, unspecified emphysema type J43.9 Active 50363725 ALLERGIES No Information ENCOUNTERS Encounter Location Date Diagnosis [facility] [place] [address] [address] 1999 Sep, [facility] [place] [id number] [place] [address] 61717- 8428 Sep, [facility] [place] [id number] [place] [address] 38016- 6052 Sep, [facility] [place] [address], [place] [address]28 Sep, [facility] [place] [id number] [place] [address] 55526- 3582 August, Anxiety F41.9 [facility] [place] [address] [address]- 0098 Jul, Anxiety F41.9 [facility] [place] [id number] [place] [address] 11570- 1755 Jun, Pulmonary emphysema, unspecified emphysema type J43.9 and Anxiety F41.9 [facility] [place] [id number] [place] [address] 95686- 8119 Jun, Anxiety F41.9 [facility] [place] [address] 7[address]14- 9601 Jun, [facility] [place] [id number] [place] [address] 87797- 0781 Jun, [facility] [place] [address] 89580- 3743 Jun, [facility] [id number] [place] [address] 85290 -3087 Jun, Dysuria R30.0 and Acute cystitis with hematuria N30.01 [facility] [place] [id number] [place] [address] 61571- 5722 May, Anxiety F41.9 and Chronic prescription benzodiazepine use Z79.899 [facility] [place] [id number] [place] [address] 75006- 7397 May, Anxiety F41.9 and Chronic prescription benzodiazepine use Z79.899 [facility] [place] [id number] [place] [address] 84508- 7724 May, Benign familial tremor G25.0 [facility] [place] [id number] [place] [address] 99105- 0719 Apr, Other iron deficiency anemia D50.8 [facility] [place] [id number] [place] [address] 34240- 9501 Apr, Anxiety F41.9 [facility] [place] [address] 03731- 0255 Apr, [place] [address] 17283- 8691 Apr, Pancreatic cyst K86.2 ; Other iron deficiency anemia D50.8 ; Pulmonary emphysema, unspecified emphysema type J43.9 ; Coarse tremors G25.2 and Claustrophobia F40.240 [place] [address] 72821- 9603 Apr, Anxiety F41.9 [place] [address] 66775- 6778 Mar, [place] [address] 78123- 3764 Mar, Anxiety F41.9 [place] [address] 97075- 3754 Feb, Anxiety F41.9 [place] [address] 08302- 3849 Jan, [place] [address] 01626- 3747 Jan, [place] [id number] [place] [address] 88418- 9918 Jan, Anxiety F41.9 [place] [address] 57515- 6885 Jan, Pulmonary emphysema, unspecified emphysema type J43.9 ; Encounter for immunization Z23 ; Other iron deficiency anemia D50.8 ; Anxiety F41.9 ; Diarrhea, unspecified type R19.7 and Memory loss R41.3 [place] [id number] [place] [address] 41875- 1622 Dec, Anxiety F41.9 [place] [address] 24065- 4318 Dec, Irritable bowel syndrome with diarrhea K58.0 [facility] [place] [id number] [place] [address] 90639- 2553 05 Dec, 2016 Diarrhea, unspecified type R19.7 [place] [id number] [place] [address] 21632- 6341 Nov, Acute non-recurrent maxillary sinusitis J01.00 ; Pulmonary emphysema, unspecified emphysema type J43.9 ; Diarrhea, unspecified type R19.7 and Other iron deficiency anemia D50.8 [place] [id number] [place] [address] 27110- 0523 Nov, [facility] [id number] [place] [address] 69629 -6229 Nov, Sore throat J02.9 and Strep pharyngitis J02.0 [place] [id number] [place] [address] 21568- 6985 Nov, Other iron deficiency anemia D50.8 [place] [id number] [place] [address] 51141- 6038 Nov, Anxiety F41.9 and Low hemoglobin D64.9 [place] [id number] [place] [address] 60260- 5599 Oct, Anxiety F41.9 [place] [id number] [place] [address] 40812- 4924 Sep, Anxiety F41.9 [place] [id number] [place] [address] 99593- 8775 13 Sep, 2016 Left upper quadrant pain R10.12 [place] [id number] [place] [address] 61857- 4261 07 Sep, 2016 Other iron deficiency anemia D50.8 and Left upper quadrant pain R10.12 [place] [id number] [place] [address] 25638- 3123 August, Anxiety F41.9 [place] [id number] [place] [address] 89993- 0423 August, Other iron deficiency anemia D50.8 and Left upper quadrant pain R10.12 [place] [id number] [place] [address] 11331- 8849 Jul, Other iron deficiency anemia D50.8 ; Acute gastric ulcer with hemorrhage K25.0 and Anxiety F41.9 [place] [id number] [place] [address] 10127- 7796 18 Jul, 2016 Other iron deficiency anemia D50.8 ; Other fatigue R53.83 ; Nicotine abuse Z72.0 ; Anxiety F41.9 and Pulmonary emphysema, unspecified emphysema type J43.9 [place] [id number] [place] [address] 00516- 3043 31 Jun, 2016 Other iron deficiency anemia D50.8 and Hematochezia K92.1 [place] [id number] [place] [address] 55499- 7346 Jun, Other fatigue R53.83 and Other iron deficiency anemia D50.8 [place] [id number] [place] [address] 08920- 3115 Jun, Other fatigue R53.83 [place] [id number] [place] [address] 24676- 5161 Jun, Other iron deficiency anemia D50.8 ; Nicotine abuse Z72.0 ; Anxiety F41.9 and Pulmonary emphysema, unspecified emphysema type J43.9 [place] [id number] [place] [address] 17131- 1614 17 Jun, 2016 Low hemoglobin D64.9 [place] [id number] [place] [address] 54052- 9038 16 Jun, 2016 Low hemoglobin D64.9 [place] [id number] [place] [address] 02713- 3003 14 Jun, 2016 Anxiety F41.9 ; Nicotine abuse Z72.0 and Reactive depression F32.9 [facility] [place] [id number] [place] [address] 09669- 2658 Jun, Anxiety F41.9 [facility] [place] [id number] [place] [address] 52505- 9213 May, Anxiety F41.9 ; Nicotine abuse Z72.0 and Reactive depression F32.9 [facility] [place] [address] 91989- 2772 May, Anxiety F41.9 [place] [id number] [place] [address] 07816- 9934 May, Anxiety F41.9 ; Nicotine abuse Z72.0 and Reactive depression F32.9 [place] [id number] [place] [address] 66461- 2972 May, [place] [address] 03319- 9503 May, [place] [id number] [place] [address] 60613- 7705 May, Anxiety F41.9 [place] [id number] [place] [address] 09380- 3939 May, Other emphysema J43.8 ; Cramping of hands R25.2 ; Irritable bowel syndrome with diarrhea K58.0 ; Breast cancer screening Z12.39 ; Candidal stomatitis B37.0 and Candidal esophagitis B37.81 [place] [address] [place] [address] 64202- 2836 Apr, Anxiety F41.9 [place] [id number] [place] [address] 57080- 4703 Mar, Anxiety F41.9 [place] [id number] [place] [address] 37389- 6063 Feb, Anxiety F41.9 [place] [address] [place] [address]- 7206 Jan, Anxiety F41.9 [facility] [place] [address] 54202- 7267 Jan, Anxiety F41.9 [facility] [place] [id number] [place] [address] 39120- 6116 Jan, Anxiety F41.9 [facility] [place] [id number] [place] [address] 72946- 0740 Jan, Anxiety F41.9 ; Nicotine abuse Z72.0 ; Pulmonary emphysema, unspecified emphysema type J43.9 ; Memory loss R41.3 and Abdominal pain, unspecified location R10.9 [facility] [place] [id number] [place] [address] 48963- 5482 Jan, [facility] [place] [id number] [place] [address] 62391- 2547 Dec, Anxiety F41.9 [facility] [id number] [place] [address] 70211 -1699 Dec, Right arm pain M79.601 [facility] [place] [id number] [place] [address] 64771- 0608 Nov, Anxiety F41.9 [facility] [place] [id number] [place] [address] 32137- 5340 Oct, Anxiety F41.9 [facility] [place] [id number] [place] [address] 20539- 6302 Oct, [facility] [place] [id number] [place] [address] 04470- 0295 Sep, Anxiety F41.9 [facility] [place] [id number] [place] [address] 18945- 9205 Sep, Left lower quadrant pain R10.32 ; Memory loss R41.3 and Basal cell carcinoma of skin, unspecified C44.91 [facility] [place] [address] [address]- 1807 Sep, Anxiety F41.9 [facility] [place] [address] [place] [address] 27024- 8971 August, Anxiety F41.9 [facility] [place] [address] [place] [address] 89210- 4708 August, Left lower quadrant pain R10.32 ; Memory loss R41.3 ; Pulmonary emphysema, unspecified emphysema type J43.9 and Depression, unspecified depression type F32.9 [facility] [place] [id number] [place] [address] 19357- 4482 August, [facility] [place] [id number] [place] [address] 45820- 9735 Jul, [facility] [place] [id number] [place] [address] 36750- 5678 Jun, [facility] [place] [id number] [place] [address] 70332- 2182 May, [facility] [place] [address] [place] [address] 05186- 9467 Apr, [facility] [place] [address] [place] [address] 00108- 5990 Apr, Chronic obstructive pulmonary disease with acute exacerbation J44.1 ; Anxiety F41.9 and Nicotine abuse Z72.0 [facility] [place] [address], [place] [address]- 9158 Apr, [facility] [place] [address] [place] [address] 83699- 9607 Mar, Anxiety disorder, unspecified F41.9 [facility] [place] [address] [place] [address] 36521- 6785 Mar, [facility] [place] [address] [place] [address] 97962- 3147 Feb, [facility] [place] [id number] [place] [address] 24272- 4285 Nov, [facility] [place] [address] 6979 Nov, [facility] [place] [id number] [place] [address] 93071- 0870 Nov, Basal cell carcinoma 173.91 and Astigmatism with presbyopia 367.20 [facility] [place] [id number] [place] [address] 26546- 0933 Oct, [facility] [place] [id number] [place] [address] 346902- 8131 Oct, Lipoma 214.9 [facility] [place] [id number] [place] [address] 05001- 2167 Sep, Ganglion cyst 727.43 ; Chronic airway obstruction, not elsewhere classified 496 ; Hypertension 401.9 ; CAD (coronary artery disease) 414.00 and Dysthymia 300.4 [facility] [place] [address] [address]- 3793 Jul, [facility] [place] [id number] [place] [address] 70858- 8055 Jul, [facility] [place] [address] 6438 Jun, [facility] [place] [address] 8117 Jun, [facility] [place] [address], [place] [address]- 5093 Jun, [facility] [place] [address], [place] [address]- 1755 Jun, [facility] [place] [id number] [place] [address] 70523- 6496 May, [facility] [place] [address] [address]- 8336 May, [facility] [place] [address] [place] [address]- 0498 12 Mar, 2014 [facility] [place] [facility] [address] [id number] [place] [address]- 4345 Mar, [facility] [place] [facility] [address] [id number] [place] [address]- 2966 Mar, [facility] [place] [facility] [address] [id number] [place] [address]- 1099 05 Mar, 2014 [facility] [place] [facility] [address] [id number] [place] [address]- 3128 Feb, [facility] [place] [facility] [address] [id number] [place] [address]- 9684 Feb, [facility] [place] [facility] [address] [id number] [place] [address]- 2438 Feb, [facility] [place] [facility] [address] [id number] [place] [address]- 8147 Feb, [facility] [place] [facility] [address] [id number] [place] [address]- 4806 Feb, [facility] [place] [facility] [address] [id number] [place] [address]- 3948 Feb, [facility] [place] [facility] [address] [id number] [place] [address]- 6522 Feb, [facility] [place] [facility] [address] [id number] [place] [address]- 3040 Feb, [facility] [place] [facility] [address] [id number] [place] [address]- 9295 Feb, [facility] [place] [facility] [address] [id number] [place] [address]- 9285 Feb, [facility] [place] [facility] [address] [id number] [place] [address]- 2826 17 Dec, 2013 [facility] [place] [facility] [address] [id number] [place] [address]- 3525 Dec, [facility] [place] [facility] [address] [id number] [place] [address]- 6216 Nov, [facility] [place] [facility] [address] [id number] [place] [address]- 7191 Oct, [facility] [place] [facility] [address] [id number] [place] [address]- 2830 Oct, [facility] [place] [facility] [address] [id number] [place] [address]- 8912 August, [facility] [place] [facility] [address] [id number] [place] [address]- 4293 August, [facility] [place] [facility] [address] [id number] [place] [address]- 1850 August, [facility] [place] [facility] [address] [id number] [place] [address]- 2468 August, [facility] [place] [facility] [address] [id number] [place] [address]- 0016 Jul, [facility] [place] [facility] [address] [id number] [place] [address]- 3174 Jul, [facility] [place] [facility] [address] [id number] [place] [address]- 7516 Jun, [facility] [place] [facility] [address] [id number] [place] [address]- 7924 Jun, [facility] [place] [facility] [address] [id number] [place] [address]- 0722 Jun, [facility] [place] [facility] [address] [id number] [place] [address]- 7426 Jun, [facility] [place] [facility] [address] [id number] [place] [address]- 1942 Jun, [facility] [place] [facility] [address] [id number] [place] 4083 Jun, [facility] [place] [facility] [address] [id number], [place] [address]- 0255 12 Jun, 2013 [facility] [place] [facility] [address] [id number] [place] [address]- 5567 10 Jun, 2013 [facility] [place] [facility] [address] [id number] [place] [address]- 0796 10 Jun, 2013 [facility] [place] [facility] [address] [id number] [place] [address]- 8828 10 Jun, 2013 [facility] [place] [facility] [address] [id number] [place] [address]- 7434 10 Jun, 2013 [facility] [place] [facility] [address] [id number] [place] [address]- 8447 Jun, [facility] [place] [facility] [address] [id number] [place] [address]- 7648 Jun, [facility] [place] [facility] [address] [id number] [place] [address]- 2477 Jun, [facility] [place] [facility] [address] [id number] [place] [address]- 4476 04 Jun, 2013 [facility] [place] [facility] [address] [id number] [place] [address] 04 Jun, 2013 [facility] [place] [facility] [address] [facility] [id number] [place] [address] Jun, [facility] [place] [facility] [address] [id number] [place] [address] Jun, [facility] [place] [facility] [address] [id number] [place] [address] Jun, [facility] [place] [facility] [address] [id number] [place] [address] May, [facility] [place] [facility] [address] [id number] [place] [address] May, [facility] [place] [facility] [address] [facility] [id number] [place] [address] 05 May, 2013 [facility] [place] [facility] [address] [id number] [place] [address] May, [facility] [address] [id number] [place] [address] Apr, [facility] [address] [id number] [place] [address] Apr, [facility] [address] [id number] [place] [address] Mar, [facility] [address] [id number] [place] [address] Mar, [facility] [address] [id number] [place] [address] Mar, [facility] [address] [id number] [place] [address] Mar, [facility] [address] [id number] [place] [address] Mar, [facility] [address] [id number] [place] [address] Mar, [facility] [address] [id number] [place] [address] Mar, [facility] [address] [id number] [place] [address] Mar, [facility] [place] [facility] [address] [id number] [place] [address] Mar, [facility] [place] [facility] [address] [id number] [place] [address] Mar, [facility] [place] [facility] [address] [id number] [place] [address] Mar, [facility] [place] [facility] [address] [id number] [place] [address] Feb, [facility] [place] [facility] [address] [id number] [place] [address] Feb, [facility] [place] [facility] [address] [id number] [place] [address] Jan, [facility] [place] [facility] [address] [id number] [place] [address] Jan, [facility] [place] [facility] [address] [id number] [place] [address] Jan, [facility] [place] [facility] [address] [id number] [place] [address] Nov, [facility] [place] [facility] [address] [id number] [place] [address] Oct, [facility] [place] [facility] [address] [id number] [place] [address] Oct, [facility] [place] [facility] [address] [id number] [place] [address] Oct, [facility] [place] [facility] [address] [id number] [place] [address] Oct, [facility] [place] [facility] [address] [id number] [place] [address] Oct, [facility] [place] [facility] [address] [id number] [place] [address] Oct, [facility] [place] [facility] [address] [id number] [place] [address] Oct, [facility] [place] [facility] [address] [id number] [place] [address] 254 Oct, [facility] [place] [facility] [address] [id number] [place] [address] Sep, [facility] [place] [facility] [address] [id number] [place] [address] Sep, [facility] [place] [facility] [address] [id number] [place] [address] Sep, [facility] [place] [facility] [address] [id number] [place] [address] Sep, [facility] [address] [id number] [place] [address] August, [facility] [address] [id number] [place] [address] August, [facility] [address] [id number] [place] [address] August, [facility] [address] [id number] [place] [address] August, [facility] [address] [id number] [place] [address] August, [facility] [address] [id number] [place] [address] August, [facility] [address] [id number] [place] [address] Jul, [facility] [address] [id number] [place] [address] May, [facility] [address] [id number] [place] [address] Apr, [facility] [address] [id number] [place] [address] Apr, [facility] [address] [id number] [place] [address] Apr, [facility] [address] [id number] [place] [address] Mar, [facility] [address] [id number] [place] [address] Mar, [facility] [address] [id number] [place] [address] Mar, [facility] [address] [id number] [place] [address] Mar, [facility] [place] [facility] [address] [id number] [place] [address] Jan, [facility] [place] [facility] [address] [id number] [place] [address] Nov, [facility] [place] [facility] [address] [id number] [place] [address] Sep, [facility] [place] [facility] [address] [id number] [place] [address] August, [facility] [place] [facility] [address] [id number] [place] [address] August, [facility] [place] [facility] [address] [id number] [place] [address] Jul, [facility] [place] [facility] [address] [id number] [place] [address] Jul, [facility] [place] [facility] [address] [id number] [place] [address] Jul, [facility] [place] [facility] [address] [id number] [place] [address] Jul, [facility] [place] [facility] [address] [id number] [place] [address] Jul, [facility] [place] [facility] [address] [id number] [place] [address] Jun, [facility] [place] [facility] [address] [id number] [place] [address] Apr, [facility] [place] [facility] [address] [id number] [place] [address] Feb, [facility] [place] [facility] [address] [id number] [place] [address] Nov, [facility] [place] [facility] [address] [id number] [place] [address] Oct, [facility] [place] [facility] [address] [id number], [place] [address] Feb, 2010 [facility] [place] [address] [facility] [id number] [address] August, [facility] [place] [address] [facility] [id number], [place] [address] Jul, [facility] [place] [address] [facility] [id number], [place] [address] Jun, IMMUNIZATIONS No Known Immunizations SOCIAL HISTORY Never Assessed REASON FOR VISIT Controlled Med Refill 03/22/17 PLAN OF CARE VITAL SIGNS MEDICATIONS Medication [...]
--- OUTSIDE RECORDS SUMMARY | 2017-12-30 00:42 | XMS REPORT ---
Author Author CASEY SIMPSON Organization [facility] Address [address] [place] [address] Care Team Providers Care Corporate Responsibility Officer Name Role Phone CASEY SIMPSON Unavailable PROBLEMS Type Condition ICD9-CM Code VBN50-WD Code Onset Dates Condition Status SNOMED Code Problem Memory loss R41.3 Active 53061153 Problem Other emphysema J43.8 Active 65636787 Problem Irritable bowel syndrome with diarrhea K58.0 Active 993715456 Problem Chronic prescription benzodiazepine use Z79.899 Active 468174510 Problem Benign familial tremor G25.0 Active 793289997 Problem Other iron deficiency anemia D50.8 Active 83332256 Problem Reactive depression F32.9 Active 46685577 Problem Coarse tremors G25.2 Active 00818450 Problem Claustrophobia F40.240 Active 55844714 Problem Essential hypertension I10 Active 58468748 Problem Anxiety F41.9 Active 30981046 Problem Nicotine abuse Z72.0 Active 28737089 Problem Supplemental oxygen dependent Z99.81 Active 605172448664 Problem Chronic obstructive pulmonary disease with acute exacerbation J44.1 Active 153687636 Problem CAD (coronary artery disease) 414.00 Active 06101536 Problem Pulmonary emphysema, unspecified emphysema type J43.9 Active 74490204 ALLERGIES No Information ENCOUNTERS Encounter Location Date Diagnosis [facility] [id number], [place] [address] Nov, [facility] [id number] [place] [address] 60453- 0322 Sep, [facility] [id number] [place] [address] 78593- 1021 Sep, [facility] [address], [place] [address] 9727 14 Sep, 2017 Anxiety F41.9 [facility] [id number] [place] [address] 95095- 6273 13 Sep, 2017 Pulmonary emphysema, unspecified emphysema type J43.9 ; Other iron deficiency anemia D50.8 ; Pain of toe of left foot M79.675 and Pain in right toe(s) M79.674 [facility] [id number] [place] [address] 99178- 7745 05 Sep, 2017 Mouth pain K13.79 [facility] [address] 41922- 0769 Sep, Pain, dental K08.89 [place] [address] 84654- 7352 Sep, [facility] [id number] [place] [address] 16940- 6214 Sep, Pulmonary emphysema, unspecified emphysema type J43.9 ; Nicotine abuse Z72.0 ; Diarrhea, unspecified type R19.7 ; Mouth pain K13.79 and Vision changes H53.9 [facility] [id number] [place] [address] 05473- 6157 Sep, [facility] [id number] [place] [address] 53699- 0886 August, Anxiety F41.9 [facility] [id number] [place] [address] 43478- 3847 Jul, Anxiety F41.9 [facility] [id number] [place] [address] 16270- 4409 Jun, Pulmonary emphysema, unspecified emphysema type J43.9 and Anxiety F41.9 [facility] [address] 32122- 7136 Jun, Anxiety F41.9 [facility] [id number] [place] [address] 31865- 2978 Jun, [facility] [address] 38514- 2422 Jun, [facility] [id number] [place] [address] 15831- 6159 Jun, [facility] [address] 17114 -5282 Jun, Dysuria R30.0 and Acute cystitis with hematuria N30.01 [facility] [address] 16553- 6594 May, Anxiety F41.9 and Chronic prescription benzodiazepine use Z79.899 [facility] [address] 18541- 5892 May, Anxiety F41.9 and Chronic prescription benzodiazepine use Z79.899 [facility] [address] 61718- 0745 May, Benign familial tremor G25.0 [facility] [address] 89761- 9783 Apr, Other iron deficiency anemia D50.8 [facility] [place] [address] 83606- 2809 Apr, Anxiety F41.9 [facility] [address] 99479- 0575 Apr, [facility] [id number] [place] [address] 68052- 2742 Apr, Pancreatic cyst K86.2 ; Other iron deficiency anemia D50.8 ; Pulmonary emphysema, unspecified emphysema type J43.9 ; Coarse tremors G25.2 and Claustrophobia F40.240 [place] [address] 90699- 1146 Apr, Anxiety F41.9 [facility] [address] 77603- 7272 Mar, [facility] [address] [place] [address]- 9574 Mar, Anxiety F41.9 [facility] [address] 29243- 2792 Feb, Anxiety F41.9 [facility] [id number] [place] [address] 42576- 6301 Jan, [facility] [address] 68447- 9903 Jan, [facility] [address] 51721- 8606 Jan, Anxiety F41.9 [facility] [address] 82579- 9178 Jan, Pulmonary emphysema, unspecified emphysema type J43.9 ; Encounter for immunization Z23 ; Other iron deficiency anemia D50.8 ; Anxiety F41.9 ; Diarrhea, unspecified type R19.7 and Memory loss R41.3 [facility] [id number] [place] [address] 30108- 8407 Dec, Anxiety F41.9 [facility] [address] 84319- 8853 Dec, Irritable bowel syndrome with diarrhea K58.0 [facility] [id number] [place] [address] 88708- 0949 Dec, Diarrhea, unspecified type R19.7 [facility] [id number] [place] [address] 51777- 5898 Nov, Acute non-recurrent maxillary sinusitis J01.00 ; Pulmonary emphysema, unspecified emphysema type J43.9 ; Diarrhea, unspecified type R19.7 and Other iron deficiency anemia D50.8 [facility] [id number] [place] [address] 01467- 0438 Nov, [facility] [id number] [place] [address] 94750 -9171 Nov, Sore throat J02.9 and Strep pharyngitis J02.0 [facility] [id number] [place] [address] 36674- 8952 Nov, Other iron deficiency anemia D50.8 [facility] [address] 72019- 2438 14 Nov, 2016 Anxiety F41.9 and Low hemoglobin D64.9 [facility] [address] 16924- 9294 14 Oct, 2016 Anxiety F41.9 [facility] [address] 54984- 9777 16 Sep, 2016 Anxiety F41.9 [facility] [address] 37365- 9029 13 Sep, 2016 Left upper quadrant pain R10.[address] 76354- 3636 Sep, Other iron deficiency anemia D50.8 and Left upper quadrant pain R10.12 [facility] [address] 88486- 1124 August, Anxiety F41.9 [facility] [address] 90047- 1821 August, Other iron deficiency anemia D50.8 and Left upper quadrant pain R10.12 [facility] [id number] [place] [address] 76002- 4218 Jul, Other iron deficiency anemia D50.8 ; Acute gastric ulcer with hemorrhage K25.0 and Anxiety F41.[address] 23607- 2165 18 Jul, 2016 Other iron deficiency anemia D50.8 ; Other fatigue R53.83 ; Nicotine abuse Z72.0 ; Anxiety F41.9 and Pulmonary emphysema, unspecified emphysema type J43.[address] 41157- 4200 31 Jun, 2016 Other iron deficiency anemia D50.8 and Hematochezia K92.1 [facility] [place] [id number] [place] [address] 83884- 8649 Jun, Other fatigue R53.83 and Other iron deficiency anemia D50.8 [facility] [id number] [place] [address] 84646- 2974 Jun, Other fatigue R53.83 [facility] [id number] [place] [address] 99126- 9108 Jun, Other iron deficiency anemia D50.8 ; Nicotine abuse Z72.0 ; Anxiety F41.9 and Pulmonary emphysema, unspecified emphysema type J43.9 [facility] [id number] [place] [address] 27108- 9576 17 Jun, 2016 Low hemoglobin D64.9 [facility] [address] 35934- 7048 16 Jun, 2016 Low hemoglobin D64.9 [facility] [address] 77347- 7687 14 Jun, 2016 Anxiety F41.9 ; Nicotine abuse Z72.0 and Reactive depression F32.9 [facility] [id number] [place] [address] 24091- 1302 Jun, Anxiety F41.9 [facility] [id number] [place] [address] 59922- 0878 May, Anxiety F41.9 ; Nicotine abuse Z72.0 and Reactive depression F32.9 [facility] [id number] [place] [address] 39968- 9749 May, Anxiety F41.9 [facility] [id number] [place] [address] 95969- 5820 May, Anxiety F41.9 ; Nicotine abuse Z72.0 and Reactive depression F32.9 [facility] [id number] [place] [address] 58298- 0992 May, [facility] [address] 04669- 4544 May, [place] [address] 85614- 3781 May, Anxiety F41.9 [address] 31503- 1437 May, Other emphysema J43.8 ; Cramping of hands R25.2 ; Irritable bowel syndrome with diarrhea K58.0 ; Breast cancer screening Z12.39 ; Candidal stomatitis B37.0 and Candidal esophagitis B37.81 [place] [address] 15606- 2655 Apr, Anxiety F41.9 [address] [place] [address] 91915- 0765 Mar, Anxiety F41.9 [place] [address] 06901- 5683 Feb, Anxiety F41.9 [place] [address] 34935- 2879 Jan, Anxiety F41.9 [address] [address] 56585- 2113 Jan, Anxiety F41.9 [address] 63983- 8642 Jan, Anxiety F41.9 [address] 62442- 5591 Jan, Anxiety F41.9 ; Nicotine abuse Z72.0 ; Pulmonary emphysema, unspecified emphysema type J43.9 ; Memory loss R41.3 and Abdominal pain, unspecified location R10.9 [address] 89846- 5173 Jan, [facility] [address], [place] [address]- 5062 Dec, Anxiety F41.9 [facility] [address], [place] [address] -3367 Dec, Right arm pain M79.601 [facility] [address], [place] [address]- 4989 Nov, Anxiety F41.9 [facility] [id number] [place] [address] 33567- 5981 Oct, Anxiety F41.9 [facility] [id number] [place] [address] 54994- 9689 Oct, [facility] [address] [place] [address] 10622- 7929 Sep, Anxiety F41.9 [facility] [id number] [place] [address] 48948- 8230 Sep, Left lower quadrant pain R10.32 ; Memory loss R41.3 and Basal cell carcinoma of skin, unspecified C44.91 [facility] [address] [place] [address] 42609- 2082 Sep, Anxiety F41.9 [facility] [address], [place] [address]- 6524 August, Anxiety F41.9 [facility] [address] [place] [address] 59231- 2213 August, Left lower quadrant pain R10.32 ; Memory loss R41.3 ; Pulmonary emphysema, unspecified emphysema type J43.9 and Depression, unspecified depression type F32.9 [facility] [address], [place] [address]- 3744 August, [facility] [address], [place] [address]- 8648 Jul, [facility] [id number] [place] [address] 93924- 7790 Jun, [facility] [id number] [place] [address] 55401- 3954 May, [facility] [id number] [place] [address] 81896- 2148 Apr, [facility] [id number] [place] [address] 85638- 8668 Apr, Chronic obstructive pulmonary disease with acute exacerbation J44.1 ; Anxiety F41.9 and Nicotine abuse Z72.0 [facility] [id number] [place] [address] 73558- 8582 Apr, [facility] [id number] [place] [address] 57035- 5859 Mar, Anxiety disorder, unspecified F41.9 [facility] [id number] [place] [address] 60595- 9907 Mar, [facility] [id number] [place] [address] 86402- 5835 Feb, [facility] [id number] [place] [address] 75246- 8410 Nov, [facility] [id number] [place] [address] 35314- 7194 Nov, [facility] [id number] [place] [address] 62070- 1274 Nov, Basal cell carcinoma 173.91 and Astigmatism with presbyopia 367.20 [facility] [id number] [place] [address] 18414- 4620 Oct, [facility] [id number] [place] [address] 19143- 3791 Oct, Lipoma 214.9 [facility] [id number] [place] [address] 70970- 9050 Sep, Ganglion cyst 727.43 ; Chronic airway obstruction, not elsewhere classified 496 ; Hypertension 401.9 ; CAD (coronary artery disease) 414.00 and Dysthymia 300.4 [facility] [id number] [place] [address]- 7112 14 Jul, 2014 [facility] [id number], [place] [address]- 3538 Jul, [facility] [id number] [place] [address] 40280- 8317 Jun, [facility] [id number] [place] [address] 94412- 6489 Jun, [facility] [id number] [place] [address], [place] [address]- 7825 Jun, [facility] [id number] [place] [address] 74489- 1178 Jun, [facility] [id number] [place] [address] 54215- 0192 May, [facility] [address], [place] [address]- 1219 May, [facility] [address], [place] [address]- 6096 Mar, [facility] [address], [place] [address]- 5556 Mar, [facility] [address], [place] [address]- 6832 Mar, [facility] [address], [place] [address]- 3888 Mar, [facility] [id number] [place] [address] 98657- 7462 Feb, [facility] [address], [place] [address]- 7179 Feb, [facility] [address] [place] [address] 78156- 4020 Feb, [facility] [place] [facility] [address] [id number] [place] [address]- 3349 Feb, [facility] [place] [facility] [address] [id number] [place] [address]- 0949 Feb, [facility] [place] [facility] [address] [id number] [place] [address]- 3488 Feb, [facility] [place] [facility] [address] [id number] [place] [address]- 4034 Feb, [facility] [place] [facility] [address] [id number] [place] [address]- 8662 Feb, [facility] [place] [facility] [address] [id number] [place] [address]- 0623 Feb, [facility] [place] [facility] [address] [id number] [place] [address]- 8655 Feb, [facility] [place] [facility] [address] [id number] [place] [address]- 1514 Dec, [facility] [place] [facility] [address] [id number] [place] [address]- 5800 Dec, [facility] [place] [facility] [address] [id number] [place] [address]- 1041 Nov, [facility] [place] [facility] [address] [id number] [place] [address]- 1347 Oct, [facility] [place] [facility] [address] [id number] [place] [address]- 9498 Oct, [facility] [place] [facility] [address] [id number] [place] [address]- 6608 August, [facility] [place] [facility] [address] [id number] [place] [address]- 1176 August, [facility] [place] [facility] [address] [id number] [place] 0296 August, [facility] [place] [facility] [address] [id number] [place] [address]- 6526 August, [facility] [place] [facility] [address] [id number] [place] [address]- 3986 Jul, [facility] [place] [facility] [address] [id number] [place] [address]- 4076 Jul, [facility] [place] [facility] [address] [id number] [place] [address]- 2590 Jun, [facility] [place] [facility] [address] [id number] [place] [address]- 8653 Jun, [facility] [place] [facility] [address] [id number] [place] [address]- 7931 Jun, [facility] [place] [facility] [address] [id number] [place] [address]- 6831 Jun, [facility] [place] [facility] [address] [id number] [place] [address]- 8620 Jun, [facility] [place] [facility] [address] [id number] [place] [address]- 8927 Jun, [facility] [place] [facility] [address] [id number] [place] [address]- 7024 Jun, [facility] [place] [facility] [address] [id number] [place] [address]- 9950 Jun, [facility] [place] [facility] [address] [id number] [place] [address]- 2971 Jun, [facility] [place] [facility] [address] [id number] [place] [address]- 9633 Jun, [facility] [place] [facility] [address] [id number] [place] [address]- 7217 Jun, [facility] [place] [facility] [address] [id number] [place] [address]- 6146 Jun, [facility] [place] [facility] [address] [id number] [place] [address]- 6699 Jun, [facility] [place] [facility] [address] [id number] [place] [address]- 5161 Jun, [facility] [place] [facility] [address] [id number] [place] [address]- 5887 Jun, [facility] [place] [facility] [address] [id number] [place] [address]- 5513 Jun, [facility] [place] [facility] [address] [id number] [place] [address]- 0256 Jun, [facility] [place] [facility] [address] [id number] [place] [address]- 8888 Jun, [facility] [place] [facility] [address] [id number] [place] [address]- 9166 Jun, [facility] [place] [facility] [address] [id number] [place] [address]- 4061 May, [facility] [place] [facility] [address] [id number] [place] [address]- 9232 May, [facility] [place] [facility] [address] [id number] [place] [address]- 0438 05 May, 2013 [facility] [place] [facility] [address] [id number] [place] [address]- 4642 May, [facility] [place] [facility] [address] [id number] [place] [address]- 7168 Apr, [facility] [place] [facility] [address] [id number] [place] [address]- 0020 Apr, [facility] [place] [facility] [address] [id number] [place] [address]- 1278 Mar, [facility] [place] [facility] [address] [id number] [place] [address]- 1726 Mar, [facility] [place] [facility] [address] [id number] [place] [address]- 2325 Mar, [facility] [place] [facility] [address] [id number] [place] [address]- 2544 Mar, 2012 [facility] [address] [id number] [place] [address]- 4668 Mar, 2012 [facility] [place] [facility] [address] [id number] [place] [address]- 8946 Mar, 2012 [facility] [address] [id number] [place] [address]- 6016 Mar, 2012 [facility] [place] [facility] [address] [id number] [place] [address]- 2548 Mar, [facility] [place] [facility] [address] [id number] [place] [address]- 6611 Mar, [facility] [place] [facility] [address] [id number] [place] [address]- 4882 Mar, [facility] [address] [id number] [place] [address]- 5396 Mar, [facility] [place] [facility] [address] [id number] [place] [address]- 2997 Feb, [facility] [place] [facility] [address] [id number] [place] [address] Feb, [facility] [place] [facility] [address] [id number] [place] [address] Jan, [facility] [place] [facility] [address] [id number] [place] [address] Jan, [facility] [place] [facility] [address] [id number] [place] [address] Jan, [facility] [place] [facility] [address] [id number] [place] [address] Nov, [facility] [place] [facility] [address] [id number] [place] [address] Oct, [facility] [place] [facility] [address] [id number] [place] [address] Oct, [facility] [place] [facility] [address] [id number] [place] [address] Oct, [facility] [address] [id number] [place] [address] Oct, [facility] [address] [id number] [place] [address] Oct, [facility] [address] [id number] [place] [address] Oct, [facility] [address] [id number] [place] [address] Oct, [facility] [address] [id number] [place] [address] Oct, [facility] [address] [id number] [place] [address] Sep, [facility] [address] [id number] [place] [address] Sep, [facility] [address] [id number] [place] [address] Sep, [facility] [address] [id number] [place] [address] Sep, [facility] [address] [id number] [place] [address] August, [facility] [address] [id number] [place] [address] August, [facility] [place] [facility] [address] [id number] [place] [address] August, [facility] [place] [facility] [address] [id number] [place] [address] August, [facility] [place] [facility] [address] [id number] [place] [address] August, [facility] [place] [facility] [address] [id number], [place] [address] August, [facility] [address] [id number] [place] [address] Jul, [facility] [address] [id number] [place] [address] May, [facility] [address] [id number] [place] [address] Apr, [facility] [place] [facility] [address] [id number] [place] [address] Apr, [facility] [address] [id number] [place] [address] Apr, [facility] [address] [id number] [place] [address] Mar, [facility] [address] [id number] [place] [address] Mar, [facility] [address] [id number] [place] [address] Mar, [facility] [address] [id number] [place] [address] Mar, [facility] [address] [id number] [place] [address] Jan, [facility] [address] [id number], [place] [address] Nov, [facility] [place] [facility] [address] [id number] [place] [address] Sep, [facility] [place] [facility] [address] [id number] [place] [address] August, [facility] [place] [facility] [address] [id number] [place] [address] August, [facility] [place] [facility] [address] [id number] [place] [address] Jul, [facility] [place] [facility] [id number], [place] [address] Jul, [facility] [id number] [address] Jul, [facility] [id number], [place] [address] Jul, [facility] [id number] [address] Jul, [facility] [id number], [place] [address] Jun, [facility] [id number] [place] [id number] Apr, [facility] [id number] [address] Feb, [facility] [id number], [place] [address] Nov, [facility] [id number], [place] [address] Oct, [facility] [id number], [place] [address] Feb, [facility] [id number] [address] August, [facility] [id number], [place] [address] Jul, [facility] [id number], [place] [address] Jun, IMMUNIZATIONS No Known Immunizations SOCIAL HISTORY Never Assessed REASON FOR VISIT Controlled Med Refill 05/17/18 PLAN OF CARE VITAL SIGNS MEDICATIONS Medication [...]
--- OUTSIDE RECORDS SUMMARY | 2017-12-30 00:42 | XMS REPORT ---
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 Name Role Phone CASEY SIMPSON Unavailable PROBLEMS Type Condition ICD9-CM Code QHV05-TY Code Onset Dates Condition Status SNOMED Code Problem Memory loss R41.3 Active 58749267 Problem Other emphysema J43.8 Active 50738205 Problem Irritable bowel syndrome with diarrhea K58.0 Active 809959008 Problem Chronic prescription benzodiazepine use Z79.899 Active 262910480 Problem Benign familial tremor G25.0 Active 109007411 Problem Other iron deficiency anemia D50.8 Active 42567748 Problem Reactive depression F32.9 Active 84884530 Problem Coarse tremors G25.2 Active 97610580 Problem Claustrophobia F40.240 Active 32859536 Problem Essential hypertension I10 Active 24134264 Problem Anxiety F41.9 Active 23097724 Problem Nicotine abuse Z72.0 Active 81169725 Problem Supplemental oxygen dependent Z99.81 Active 127130001896 Problem Chronic obstructive pulmonary disease with acute exacerbation J44.1 Active 563437748 Problem CAD (coronary artery disease) 414.00 Active 74809201 Problem Pulmonary emphysema, unspecified emphysema type J43.9 Active 10772491 ALLERGIES No Information ENCOUNTERS Encounter Location Date Diagnosis [facility] [id number] [address] Nov, [facility] [id number] [place] [address] 30790- 0339 Sep, [facility] [id number] [place] [address] 87179- 3871 Sep, [facility] [address], [place] [address] 14 Sep, 2017 Anxiety F41.9 [facility] [id number] [place] [address] 65886- 5229 13 Sep, 2017 Pulmonary emphysema, unspecified emphysema type J43.9 ; Other iron deficiency anemia D50.8 ; Pain of toe of left foot M79.675 and Pain in right toe(s) M79.674 [facility] [id number] [place] [address] 93381- 5275 05 Sep, 2017 Mouth pain K13.79 [facility] [address] [address]20- 4657 Sep, Pain, dental K08.89 [address] [address] 22950- 0549 Sep, [facility] [id number] [place] [address] 92245- 7763 Sep, Pulmonary emphysema, unspecified emphysema type J43.9 ; Nicotine abuse Z72.0 ; Diarrhea, unspecified type R19.7 ; Mouth pain K13.79 and Vision changes H53.9 [facility] [id number] [place] [address] 09492- 4895 Sep, [facility] [id number] [place] [address] 30476- 4416 August, Anxiety F41.9 [facility] [id number] [place] [address] 59308- 9658 Jul, Anxiety F41.9 [facility] [id number] [place] [address] 33467- 9363 Jun, Pulmonary emphysema, unspecified emphysema type J43.9 and Anxiety F41.9 [facility] [address] 48933- 5491 Jun, Anxiety F41.9 [facility] [id number] [place] [address] 60085- 9467 Jun, [facility] [address] 83305- 1843 Jun, [facility] [id number] [place] [address] 73720- 9485 Jun, [facility] [address] 23199 -7662 Jun, Dysuria R30.0 and Acute cystitis with hematuria N30.01 [facility] [address] 88257- 4199 May, Anxiety F41.9 and Chronic prescription benzodiazepine use Z79.899 [facility] [address] 47993- 7906 May, Anxiety F41.9 and Chronic prescription benzodiazepine use Z79.899 [facility] [address] 65780- 9431 May, Benign familial tremor G25.0 [facility] [address] 52921- 1987 Apr, Other iron deficiency anemia D50.8 [facility] [address] 92865- 9887 Apr, Anxiety F41.9 [facility] [address] 51792- 6338 Apr, [facility] [id number] [place] [address] 93637- 2211 Apr, Pancreatic cyst K86.2 ; Other iron deficiency anemia D50.8 ; Pulmonary emphysema, unspecified emphysema type J43.9 ; Coarse tremors G25.2 and Claustrophobia F40.240 [facility] [address] 15256- 4349 Apr, Anxiety F41.9 [facility] [address] 05990- 2165 Mar, [facility] [address] [place] [address]- 8271 Mar, Anxiety F41.9 [facility] [address] 01434- 0392 Feb, Anxiety F41.9 [facility] [id number] [place] [address] 21755- 3702 Jan, [facility] [address] 91570- 6453 Jan, [facility] [address] 22732- 4420 Jan, Anxiety F41.9 [address] [place] [address] 73546- 0766 Jan, Pulmonary emphysema, unspecified emphysema type J43.9 ; Encounter for immunization Z23 ; Other iron deficiency anemia D50.8 ; Anxiety F41.9 ; Diarrhea, unspecified type R19.7 and Memory loss R41.3 [facility] [id number] [place] [address] 48870- 8455 Dec, Anxiety F41.9 [facility] [address] 24320- 8836 Dec, Irritable bowel syndrome with diarrhea K58.0 [facility] [id number] [place] [address] 56545- 7396 Dec, Diarrhea, unspecified type R19.7 [facility] [id number] [place] [address] 95962- 6077 Nov, Acute non-recurrent maxillary sinusitis J01.00 ; Pulmonary emphysema, unspecified emphysema type J43.9 ; Diarrhea, unspecified type R19.7 and Other iron deficiency anemia D50.8 [facility] [id number] [place] [address] 54946- 0064 Nov, [facility] [id number] [place] [address] 17739 -3467 Nov, Sore throat J02.9 and Strep pharyngitis J02.0 [facility] [id number] [place] [address] 11946- 9500 Nov, Other iron deficiency anemia D50.8 [facility] [address] 88209- 9566 14 Nov, 2016 Anxiety F41.9 and Low hemoglobin D64.9 [facility] [address] 13596- 5096 14 Oct, 2016 Anxiety F41.9 [address] [facility] [address] 82700- 3537 16 Sep, 2016 Anxiety F41.9 [address] [facility] [address] 45760- 8846 13 Sep, 2016 Left upper quadrant pain R10.[address] 75324- 8762 Sep, Other iron deficiency anemia D50.8 and Left upper quadrant pain R10.12 [facility] [facility] [address] 49625- 8820 August, Anxiety F41.9 [place] [facility] [address] 69383- 9536 August, Other iron deficiency anemia D50.8 and Left upper quadrant pain R10.12 [facility] [id number] [place] [address] 05247- 6691 Jul, Other iron deficiency anemia D50.8 ; Acute gastric ulcer with hemorrhage K25.0 and Anxiety F41.[address] 54133- 7174 18 Jul, 2016 Other iron deficiency anemia D50.8 ; Other fatigue R53.83 ; Nicotine abuse Z72.0 ; Anxiety F41.9 and Pulmonary emphysema, unspecified emphysema type J43.[address] 63305- 6520 31 Jun, 2016 Other iron deficiency anemia D50.8 and Hematochezia K92.1 [facility] [facility] [id number] [place] [address] 59396- 7307 Jun, Other fatigue R53.83 and Other iron deficiency anemia D50.8 [facility] [id number] [place] [address] 40500- 8027 Jun, Other fatigue R53.83 [facility] [id number] [place] [address] 20658- 6983 Jun, Other iron deficiency anemia D50.8 ; Nicotine abuse Z72.0 ; Anxiety F41.9 and Pulmonary emphysema, unspecified emphysema type J43.9 [facility] [id number] [place] [address] 60752- 2371 17 Jun, 2016 Low hemoglobin D64.9 [facility] [address] 53054- 7654 16 Jun, 2016 Low hemoglobin D64.9 [facility] [address] 31761- 7203 14 Jun, 2016 Anxiety F41.9 ; Nicotine abuse Z72.0 and Reactive depression F32.9 [facility] [id number] [place] [address] 65034- 4054 Jun, Anxiety F41.9 [facility] [id number] [place] [address] 82811- 8396 May, Anxiety F41.9 ; Nicotine abuse Z72.0 and Reactive depression F32.9 [address] [id number] [place] [address] 45732- 7887 May, Anxiety F41.9 [facility] [id number] [place] [address] 73916- 6232 May, Anxiety F41.9 ; Nicotine abuse Z72.0 and Reactive depression F32.9 [place] [id number] [place] [address] 88180- 4271 May, [facility] [address] 25429- 8104 May, [place] [address] 99917- 8323 May, Anxiety F41.9 [address] 47280- 3418 May, Other emphysema J43.8 ; Cramping of hands R25.2 ; Irritable bowel syndrome with diarrhea K58.0 ; Breast cancer screening Z12.39 ; Candidal stomatitis B37.0 and Candidal esophagitis B37.81 [address] 85193- 7231 Apr, Anxiety F41.9 [place] [address] 40242- 4384 Mar, Anxiety F41.9 [address] [address] 04389- 3783 Feb, Anxiety F41.9 [address] [address] 78706- 9303 Jan, Anxiety F41.9 [address] [address] 66587- 8633 Jan, Anxiety F41.9 [address] [address] 36880- 0597 Jan, Anxiety F41.9 [address] 46775- 8790 Jan, Anxiety F41.9 ; Nicotine abuse Z72.0 ; Pulmonary emphysema, unspecified emphysema type J43.9 ; Memory loss R41.3 and Abdominal pain, unspecified location R10.9 [address] [address] 80790- 3880 Jan, [facility] [address], [place] [address]- 6419 Dec, Anxiety F41.9 [facility] [address], [place] [address]2904 Dec, Right arm pain M79.601 [facility] [address], [place] [address]- 0369 Nov, Anxiety F41.9 [facility] [id number] [place] [address] 13910- 4083 Oct, Anxiety F41.9 [facility] [id number] [place] [address] 79558- 5598 Oct, [facility] [id number] [place] [address] 34087- 8033 Sep, Anxiety F41.9 [facility] [id number] [place] [address] 16056- 0770 Sep, Left lower quadrant pain R10.32 ; Memory loss R41.3 and Basal cell carcinoma of skin, unspecified C44.91 [facility] [id number] [place] [address] 94030- 2909 Sep, Anxiety F41.9 [facility] [address], [place] [address]- 0152 August, Anxiety F41.9 [facility] [id number] [place] [address] 84703- 3350 August, Left lower quadrant pain R10.32 ; Memory loss R41.3 ; Pulmonary emphysema, unspecified emphysema type J43.9 and Depression, unspecified depression type F32.9 [facility] [address], [place] [address]- 7069 August, [facility] [address], [place] [address]- 0086 Jul, [facility] [id number] [place] [address] 18298- 5976 Jun, [facility] [id number] [place] [address] 35298- 3912 May, [facility] [id number] [place] [address] 27545- 9714 Apr, [facility] [id number] [place] [address] 42411- 4187 Apr, Chronic obstructive pulmonary disease with acute exacerbation J44.1 ; Anxiety F41.9 and Nicotine abuse Z72.0 [facility] [id number] [place] [address] 49460- 3302 Apr, [facility] [id number] [place] [address] 64022- 8148 Mar, Anxiety disorder, unspecified F41.9 [facility] [id number] [place] [address] 45819- 8322 Mar, [facility] [id number] [place] [address] 58405- 9223 Feb, [facility] [id number] [place] [address] 15525- 7203 Nov, [facility] [id number] [place] [address] 07206- 4983 Nov, [facility] [id number] [place] [address] 00861- 6916 Nov, Basal cell carcinoma 173.91 and Astigmatism with presbyopia 367.20 [facility] [id number] [place] [address] 98442- 9461 Oct, [facility] [id number] [place] [address] 12766- 7011 Oct, Lipoma 214.9 [facility] [id number] [place] [address] 53143- 7220 Sep, Ganglion cyst 727.43 ; Chronic airway obstruction, not elsewhere classified 496 ; Hypertension 401.9 ; CAD (coronary artery disease) 414.00 and Dysthymia 300.4 [facility] [address], [place] [address]- 5704 14 Jul, 2014 [facility] [address], [place] [address]- 2778 Jul, [facility] [id number] [place] [address] 87669- 6493 Jun, [facility] [id number] [place] [address] 88336- 4424 Jun, [facility] [id number] [place] [address], [place] [address]- 6967 Jun, [facility] [id number] [place] [address] 37741- 1299 Jun, [facility] [id number] [place] [address] 06361- 4470 May, [facility] [address], [place] [address]- 7857 May, [facility] [address], [place] [address]- 6482 Mar, [facility] [address], [place] [address]- 9064 Mar, [facility] [address], [place] [address]- 9536 Mar, [facility] [address], [place] [address]- 8164 Mar, [facility] [id number] [place] [address] 58813- 9228 Feb, [facility] [address], [place] [address]- 0460 Feb, [facility] [id number] [place] [address] 03233- 3771 Feb, [facility] [place] [facility] [address] [id number] [place] [address]- 7167 Feb, [facility] [place] [facility] [address] [id number] [place] [address]- 4698 Feb, [facility] [place] [facility] [address] [id number] [place] [address]- 2604 Feb, [facility] [place] [facility] [address] [id number] [place] [address]- 1576 Feb, [facility] [place] [facility] [address] [id number] [place] [address]- 4232 Feb, [facility] [place] [facility] [address] [id number] [place] [address]- 5895 Feb, [facility] [place] [facility] [address] [id number] [place] [address]- 3362 Feb, [facility] [place] [facility] [address] [id number] [place] [address]- 2563 Dec, [facility] [place] [facility] [address] [id number] [place] [address]- 0197 Dec, [facility] [place] [facility] [address] [id number] [place] [address]- 0630 Nov, [facility] [place] [facility] [address] [id number] [place] [address]- 6947 Oct, [facility] [place] [facility] [address] [id number] [place] [address]- 3010 Oct, [facility] [place] [facility] [address] [id number] [place] [address]- 8024 August, [facility] [place] [facility] [address] [id number] [place] [address]- 4547 August, [facility] [place] [facility] [address] [id number] [place] 8510 August, [facility] [place] [facility] [address] [id number] [place] [address]- 8536 August, [facility] [place] [facility] [address] [id number] [place] [address]- 3006 Jul, [facility] [place] [facility] [address] [id number] [place] [address]- 0626 Jul, [facility] [place] [facility] [address] [id number] [place] [address]- 0123 Jun, [facility] [place] [facility] [address] [id number] [place] [address]- 5940 Jun, [facility] [place] [facility] [address] [id number] [place] [address]- 2268 Jun, [facility] [place] [facility] [address] [id number] [place] [address]- 0230 Jun, [facility] [place] [facility] [address] [id number] [place] [address]- 1185 Jun, [facility] [place] [facility] [address] [id number] [place] [address]- 3655 Jun, [facility] [place] [facility] [address] [id number] [place] [address]- 1702 Jun, [facility] [place] [facility] [address] [id number] [place] [address]- 1970 Jun, [facility] [place] [facility] [address] [id number] [place] [address]- 7716 Jun, [facility] [place] [facility] [address] [id number] [place] [address]- 1668 Jun, [facility] [place] [facility] [address] [id number] [place] [address]- 5524 Jun, [facility] [place] [facility] [address] [id number] [place] [address]- 5926 Jun, [facility] [place] [facility] [address] [id number] [place] [address]- 9911 Jun, [facility] [place] [facility] [address] [id number] [place] [address]- 3327 Jun, [facility] [place] [facility] [address] [id number] [place] [address]- 2948 Jun, [facility] [place] [facility] [address] [id number] [place] [address]- 9139 Jun, [facility] [place] [facility] [address] [id number] [place] [address]- 4672 Jun, [facility] [place] [facility] [address] [id number] [place] [address]- 6528 Jun, [facility] [place] [facility] [address] [id number] [place] [address]- 0717 Jun, [facility] [place] [facility] [address] [id number] [place] [address]- 4303 May, [facility] [place] [facility] [address] [id number] [place] [address]- 1661 May, [facility] [place] [facility] [address] [id number] [place] [address]- 1283 05 May, 2013 [facility] [place] [facility] [address] [id number] [place] [address]- 6635 May, [facility] [place] [facility] [address] [id number] [place] [address]- 4504 Apr, [facility] [place] [facility] [address] [id number] [place] [address]- 8617 Apr, [facility] [place] [facility] [address] [id number] [place] [address]- 8074 Mar, [facility] [place] [facility] [address] [id number] [place] [address]- 9128 Mar, [facility] [place] [facility] [address] [id number] [place] [address]- 4784 Mar, [facility] [place] [facility] [address] [id number] [place] [address]- 2549 Mar, 2012 [facility] [address] [id number] [place] [address]- 1103 Mar, 2012 [facility] [place] [facility] [address] [id number] [place] [address]- 8776 Mar, 2012 [facility] [address] [id number] [place] [address]- 4136 Mar, 2012 [facility] [place] [facility] [address] [id number] [place] [address]- 2543 Mar, [facility] [place] [facility] [address] [id number] [place] [address]- 1823 Mar, [facility] [place] [facility] [address] [id number] [place] [address]- 8678 Mar, [facility] [address] [id number] [place] [address]- 0751 Mar, [facility] [place] [facility] [address] [id number] [place] [address]- 3070 Feb, [facility] [place] [facility] [address] [id number] [place] [address]- 1929 Feb, [facility] [place] [facility] [address] [id number] [place] [address]- 6285 Jan, [facility] [place] [facility] [address] [id number] [place] [address]- 7301 Jan, [facility] [place] [facility] [address] [id number] [place] [address]- 254 Jan, [facility] [place] [facility] [address] [id number] [place] [address] 2543 Nov, [facility] [place] [facility] [address] [id number] [place] [address]- 2546 Oct, [facility] [place] [facility] [address] [id number] [place] [address]- 2545 Oct, [facility] [place] [facility] [address] [id number] [place] [address]- 7309 Oct, [facility] [address] [id number] [place] [address] Oct, [facility] [address] [id number] [place] [address] Oct, [facility] [address] [id number] [place] [address] Oct, [facility] [address] [id number] [place] [address] Oct, [facility] [address] [id number] [place] [address] Oct, [facility] [address] [id number] [place] [address] Sep, [facility] [address] [id number] [place] [address] Sep, [facility] [address] [id number] [place] [address] Sep, [facility] [address] [id number] [place] [address] Sep, [facility] [address] [id number] [place] [address] August, [facility] [address] [id number] [place] [address] August, [facility] [place] [facility] [address] [id number] [place] [address] August, [facility] [place] [facility] [address] [id number] [place] [address] August, [facility] [place] [facility] [address] [id number] [place] [address] August, [facility] [place] [facility] [address] [id number], [place] [address] August, [facility] [address] [id number] [place] [address] Jul, [facility] [address] [id number] [place] [address] May, [facility] [address] [id number] [place] [address] Apr, [facility] [place] [facility] [address] [id number] [place] [address] Apr, [facility] [address] [id number] [place] [address] Apr, [facility] [address] [id number] [place] [address] Mar, [facility] [address] [id number] [place] [address] Mar, [facility] [address] [id number] [place] [address] Mar, [facility] [address] [id number] [place] [address] Mar, [facility] [address] [id number] [place] [address] Jan, [facility] [address] [id number], [place] [address] Nov, [facility] [place] [facility] [address] [id number] [place] [address] Sep, [facility] [place] [facility] [address] [id number] [place] [address] August, [facility] [place] [facility] [address] [id number] [place] [address] August, [facility] [place] [facility] [address] [id number] [place] [address] Jul, [facility] [place] [facility] [id number], [place] [address] Jul, [facility] [id number], [place] [address] Jul, [facility] [id number], [place] [address] Jul, [facility] [id number], [place] [address] Jul, [facility] [id number], [place] [address] Jun, [facility] [id number] [place] [address] Apr, [facility] [id number], [place] [address] Feb, [facility] [id number] [place] [address] Nov, [facility] [id number], [place] [address] Oct, [facility] [id number], [place] [address] Feb, [facility] [id number], [place] [address] August, [facility] [id number], [place] [address] Jul, [facility] [address] [id number], [place] [address] Jun, IMMUNIZATIONS No Known Immunizations SOCIAL HISTORY Never Assessed REASON FOR VISIT med refill PLAN OF CARE VITAL SIGNS MEDICATIONS Unknown [...]
--- OUTSIDE RECORDS SUMMARY | 2017-12-30 00:44 | XMS REPORT ---
Author Author CASEY SIMPSON Organization [facility] Address [address] [place] [address] Care Team Providers Care Porter Luggage Name Role Phone CASEY SIMPSON Unavailable PROBLEMS Type Condition ICD9-CM Code GMT01-CT Code Onset Dates Condition Status SNOMED Code Problem Memory loss R41.3 Active 05771102 Problem Other emphysema J43.8 Active 67854584 Problem Irritable bowel syndrome with diarrhea K58.0 Active 297475306 Problem Chronic prescription benzodiazepine use Z79.899 Active 041926856 Problem Benign familial tremor G25.0 Active 860247292 Problem Other iron deficiency anemia D50.8 Active 32157453 Problem Reactive depression F32.9 Active 39397943 Problem Coarse tremors G25.2 Active 22550254 Problem Claustrophobia F40.240 Active 20443010 Problem Essential hypertension I10 Active 36923619 Problem Anxiety F41.9 Active 85544076 Problem Nicotine abuse Z72.0 Active 80620573 Problem Supplemental oxygen dependent Z99.81 Active 564197272877 Problem Chronic obstructive pulmonary disease with acute exacerbation J44.1 Active 948540131 Problem CAD (coronary artery disease) 414.00 Active 81667346 Problem Pulmonary emphysema, unspecified emphysema type J43.9 Active 45003958 ALLERGIES No Information ENCOUNTERS Encounter Location Date Diagnosis [facility] [id number] [address] Nov, [facility] [address] [address] Sep, [facility] [id number] [place] [address] 45124- 7035 Sep, [facility] [address] [address] Sep, Anxiety F41.9 [facility] [id number] [place] [address] 68221- 5887 13 Sep, 2017 Pulmonary emphysema, unspecified emphysema type J43.9 ; Other iron deficiency anemia D50.8 ; Pain of toe of left foot M79.675 and Pain in right toe(s) M79.674 [facility] [id number] [place] [address] 72766- 9386 05 Sep, 2017 Mouth pain K13.79 [facility] [address] 87244- 5789 Sep, Pain, dental K08.89 [facility] [address] 71341- 4599 Sep, [facility] [id number] [place] [address] 31060- 8274 Sep, Pulmonary emphysema, unspecified emphysema type J43.9 ; Nicotine abuse Z72.0 ; Diarrhea, unspecified type R19.7 ; Mouth pain K13.79 and Vision changes H53.9 [facility] [id number] [place] [address] 78706- 2114 Sep, [facility] [id number] [place] [address] 00792- 2562 August, Anxiety F41.9 [facility] [id number] [place] [address] 36484- 5166 Jul, Anxiety F41.9 [facility] [id number] [place] [address] 90718- 5955 Jun, Pulmonary emphysema, unspecified emphysema type J43.9 and Anxiety F41.9 [facility] [address] 61429- 9261 Jun, Anxiety F41.9 [facility] [id number] [place] [address] 51131- 7067 Jun, [facility] [address] 97215- 1590 Jun, [facility] [id number] [place] [address] 89338- 6701 Jun, [facility] [address] 09[address] -0065 Jun, Dysuria R30.0 and Acute cystitis with hematuria N30.01 [facility] [address] 84974- 7882 May, Anxiety F41.9 and Chronic prescription benzodiazepine use Z79.899 [facility] [address] 36174- 1054 May, Anxiety F41.9 and Chronic prescription benzodiazepine use Z79.899 [facility] [address] 59993- 1707 May, Benign familial tremor G25.0 [facility] [address] 52287- 3860 Apr, Other iron deficiency anemia D50.8 [facility] [address] 42293- 5752 Apr, Anxiety F41.9 [facility] [address] 62752- 3107 Apr, [facility] [id number] [place] [address] 68372- 4216 Apr, Pancreatic cyst K86.2 ; Other iron deficiency anemia D50.8 ; Pulmonary emphysema, unspecified emphysema type J43.9 ; Coarse tremors G25.2 and Claustrophobia F40.240 [facility] [address] 70669- 1984 Apr, Anxiety F41.9 [facility] [address] 68745- 0140 Mar, [facility] [address] [place] [address]- 3166 Mar, Anxiety F41.9 [facility] [address] 76246- 5683 Feb, Anxiety F41.9 [facility] [id number] [place] [address] 05936- 9342 Jan, [facility] [address] 67098- 8406 Jan, [facility] [address] 66738- 5094 Jan, Anxiety F41.9 [facility] [address] 65916- 2846 Jan, Pulmonary emphysema, unspecified emphysema type J43.9 ; Encounter for immunization Z23 ; Other iron deficiency anemia D50.8 ; Anxiety F41.9 ; Diarrhea, unspecified type R19.7 and Memory loss R41.3 [facility] [id number] [place] [address] 15727- 4019 Dec, Anxiety F41.9 [facility] [address] 32823- 8634 Dec, Irritable bowel syndrome with diarrhea K58.0 [facility] [id number] [place] [address] 69619- 3634 Dec, Diarrhea, unspecified type R19.7 [facility] [id number] [place] [address] 63015- 2794 Nov, Acute non-recurrent maxillary sinusitis J01.00 ; Pulmonary emphysema, unspecified emphysema type J43.9 ; Diarrhea, unspecified type R19.7 and Other iron deficiency anemia D50.8 [facility] [id number] [place] [address] 70071- 2671 Nov, [facility] [id number] [place] [address] 82695 -5464 Nov, Sore throat J02.9 and Strep pharyngitis J02.0 [facility] [id number] [place] [address] 27067- 1806 Nov, Other iron deficiency anemia D50.8 [facility] [address] 60593- 4476 14 Nov, 2016 Anxiety F41.9 and Low hemoglobin D64.9 [facility] [address] 95944- 6193 14 Oct, 2016 Anxiety F41.9 [facility] [address] 65724- 7320 16 Sep, 2016 Anxiety F41.9 [facility] [address] 27815- 1892 13 Sep, 2016 Left upper quadrant pain R10.[address] 12321- 6724 Sep, Other iron deficiency anemia D50.8 and Left upper quadrant pain R10.12 [facility] [address] 44012- 5662 August, Anxiety F41.9 [facility] [address] 23769- 2842 August, Other iron deficiency anemia D50.8 and Left upper quadrant pain R10.12 [facility] [id number] [place] [address] 39257- 9823 Jul, Other iron deficiency anemia D50.8 ; Acute gastric ulcer with hemorrhage K25.0 and Anxiety F41.[address] 24543- 2846 18 Jul, 2016 Other iron deficiency anemia D50.8 ; Other fatigue R53.83 ; Nicotine abuse Z72.0 ; Anxiety F41.9 and Pulmonary emphysema, unspecified emphysema type J43.[address] 72858- 0483 31 Jun, 2016 Other iron deficiency anemia D50.8 and Hematochezia K92.1 [facility] [id number] [place] [address] 53684- 6862 Jun, Other fatigue R53.83 and Other iron deficiency anemia D50.8 [facility] [id number] [place] [address] 33177- 6103 Jun, Other fatigue R53.83 [facility] [id number] [place] [address] 43256- 6657 Jun, Other iron deficiency anemia D50.8 ; Nicotine abuse Z72.0 ; Anxiety F41.9 and Pulmonary emphysema, unspecified emphysema type J43.9 [facility] [id number] [place] [address] 03280- 2439 17 Jun, 2016 Low hemoglobin D64.9 [facility] [address] 36639- 9134 16 Jun, 2016 Low hemoglobin D64.9 [facility] [address] 07457- 7898 14 Jun, 2016 Anxiety F41.9 ; Nicotine abuse Z72.0 and Reactive depression F32.9 [facility] [id number] [place] [address] 33372- 0539 Jun, Anxiety F41.9 [facility] [id number] [place] [address] 75091- 9633 May, Anxiety F41.9 ; Nicotine abuse Z72.0 and Reactive depression F32.9 [facility] [id number] [place] [address] 29573- 3606 May, Anxiety F41.9 [facility] [id number] [place] [address] 58928- 8137 May, Anxiety F41.9 ; Nicotine abuse Z72.0 and Reactive depression F32.9 [facility] [id number] [place] [address] 62410- 3118 May, [facility] [address] 61052- 6431 May, [facility] [address] 09865- 1325 May, Anxiety F41.9 [facility] [address] 57824- 6349 May, Other emphysema J43.8 ; Cramping of hands R25.2 ; Irritable bowel syndrome with diarrhea K58.0 ; Breast cancer screening Z12.39 ; Candidal stomatitis B37.0 and Candidal esophagitis B37.81 [facility] [address] 47697- 2477 Apr, Anxiety F41.9 [facility] [address] 50511- 3810 Mar, Anxiety F41.9 [facility] [address] 19468- 7875 Feb, Anxiety F41.9 [facility] [address] 03044- 1189 Jan, Anxiety F41.9 [facility] [address] 60448- 1072 Jan, Anxiety F41.9 [facility] [address] 09910- 0818 Jan, Anxiety F41.9 [facility] [address] 70348- 4513 Jan, Anxiety F41.9 ; Nicotine abuse Z72.0 ; Pulmonary emphysema, unspecified emphysema type J43.9 ; Memory loss R41.3 and Abdominal pain, unspecified location R10.9 [facility] [address] 10767- 4325 Jan, [facility] [address] [address]- 2404 Dec, Anxiety F41.9 [facility] [address] [address] -9334 Dec, Right arm pain M79.601 [facility] [address] [address]- 7144 Nov, Anxiety F41.9 [facility] [id number] [place] [address] 22090- 5480 Oct, Anxiety F41.9 [facility] [id number] [place] [address] 21116- 9680 Oct, [facility] [id number] [place] [address] 89731- 8095 Sep, Anxiety F41.9 [facility] [id number] [place] [address] 68658- 6362 Sep, Left lower quadrant pain R10.32 ; Memory loss R41.3 and Basal cell carcinoma of skin, unspecified C44.91 [facility] [address] [place] [address] 78788- 7491 Sep, Anxiety F41.9 [facility] [address] [address]- 9336 August, Anxiety F41.9 [facility] [address] [place] [address] 62560- 4842 August, Left lower quadrant pain R10.32 ; Memory loss R41.3 ; Pulmonary emphysema, unspecified emphysema type J43.9 and Depression, unspecified depression type F32.9 [facility] [address] [address]- 8898 August, [facility] [address] [address]- 1818 Jul, [facility] [id number] [place] [address] 31758- 1765 Jun, [facility] [id number] [place] [address] 24461- 4210 May, [facility] [id number] [place] [address] 53974- 4220 Apr, [facility] [id number] [place] [address] 96097- 9771 Apr, Chronic obstructive pulmonary disease with acute exacerbation J44.1 ; Anxiety F41.9 and Nicotine abuse Z72.0 [facility] [id number] [place] [address] 18684- 4781 Apr, [facility] [id number] [place] [address] 70567- 0267 Mar, Anxiety disorder, unspecified F41.9 [facility] [id number] [place] [address] 84247- 5376 Mar, [facility] [id number] [place] [address] 07483- 9255 Feb, [facility] [id number] [place] [address] 53430- 6427 Nov, [facility] [id number] [place] [address] 76306- 7253 Nov, [facility] [id number] [place] [address] 35782- 1339 Nov, Basal cell carcinoma 173.91 and Astigmatism with presbyopia 367.20 [facility] [id number] [place] [address] 39195- 9094 Oct, [facility] [id number] [place] [address] 32742- 1650 Oct, Lipoma 214.9 [facility] [id number] [place] [address] 07170- 1587 Sep, Ganglion cyst 727.43 ; Chronic airway obstruction, not elsewhere classified 496 ; Hypertension 401.9 ; CAD (coronary artery disease) 414.00 and Dysthymia 300.4 [facility] [id number] [address]- 7250 14 Jul, 2014 [facility] [id number] [address]- 9157 Jul, [facility] [id number] [place] [address] 90732- 0937 Jun, [facility] [id number] [place] [address] 39779- 8746 Jun, [facility] [id number] [place] [address], [place] [address]- 6370 Jun, [facility] [id number] [place] [address] 83397- 3842 Jun, [facility] [id number] [place] [address] 02049- 2497 May, [facility] [address] [address]- 2951 May, [facility] [address] [address]- 3184 Mar, [facility] [address] [address]- 5015 Mar, [facility] [address] [address]- 8463 Mar, [facility] [address] [address]- 3515 Mar, [facility] [id number] [place] [address] 31896- 9215 Feb, [facility] [address] [address]- 3244 Feb, [facility] [address] [place] [address] 44536- 3817 Feb, [facility] [place] [facility] [address] [id number] [place] [address]- 7407 Feb, [facility] [place] [facility] [address] [id number] [place] [address]- 9774 Feb, [facility] [place] [facility] [address] [id number] [place] [address]- 3151 Feb, [facility] [place] [facility] [address] [id number] [place] [address]- 2554 Feb, [facility] [place] [facility] [address] [id number] [place] [address]- 9813 Feb, [facility] [place] [facility] [address] [id number] [place] [address]- 5782 Feb, [facility] [place] [facility] [address] [id number] [place] [address]- 2898 Feb, [facility] [place] [facility] [address] [id number] [place] [address]- 6782 Dec, [facility] [place] [facility] [address] [id number] [place] [address]- 4576 Dec, [facility] [place] [facility] [address] [id number] [place] [address]- 5058 Nov, [facility] [place] [facility] [address] [id number] [place] [address]- 0100 Oct, [facility] [place] [facility] [address] [id number] [place] [address]- 6200 Oct, [facility] [place] [facility] [address] [id number] [place] [address]- 0005 August, [facility] [place] [facility] [address] [id number] [place] [address]- 1548 August, [facility] [place] [facility] [address] [id number] [place] 6348 August, [facility] [place] [facility] [address] [id number] [place] [address]- 6616 August, [facility] [place] [facility] [address] [id number] [place] [address]- 3176 Jul, [facility] [place] [facility] [address] [id number] [place] [address]- 2206 Jul, [facility] [place] [facility] [address] [id number] [place] [address]- 4638 Jun, [facility] [place] [facility] [address] [id number] [place] [address]- 7807 Jun, [facility] [place] [facility] [address] [id number] [place] [address]- 8159 Jun, [facility] [place] [facility] [address] [id number] [place] [address]- 5735 Jun, [facility] [place] [facility] [address] [id number] [place] [address]- 9816 Jun, [facility] [place] [facility] [address] [id number] [place] [address]- 7357 Jun, [facility] [place] [facility] [address] [id number] [place] [address]- 5486 Jun, [facility] [place] [facility] [address] [id number] [place] [address]- 0887 Jun, [facility] [place] [facility] [address] [id number] [place] [address]- 9405 Jun, [facility] [place] [facility] [address] [id number] [place] [address]- 1398 Jun, [facility] [place] [facility] [address] [id number] [place] [address]- 5097 Jun, [facility] [place] [facility] [address] [id number] [place] [address]- 2256 Jun, [facility] [place] [facility] [address] [id number] [place] [address]- 3676 Jun, [facility] [place] [facility] [address] [id number] [place] [address]- 0383 Jun, [facility] [place] [facility] [address] [id number] [place] [address]- 3827 Jun, [facility] [place] [facility] [address] [id number] [place] [address]- 1611 Jun, [facility] [place] [facility] [address] [id number] [place] [address]- 5744 Jun, [facility] [place] [facility] [address] [id number] [place] [address]- 0238 Jun, [facility] [place] [facility] [address] [id number] [place] [address]- 1307 Jun, [facility] [place] [facility] [address] [id number] [place] [address]- 2518 May, [facility] [place] [facility] [address] [id number] [place] [address]- 0333 May, [facility] [place] [facility] [address] [id number] [place] [address]- 0926 05 May, 2013 [facility] [place] [facility] [address] [id number] [place] [address]- 6511 May, [facility] [place] [facility] [address] [id number] [place] [address]- 4655 Apr, [facility] [place] [facility] [address] [id number] [place] [address]- 0221 Apr, [facility] [place] [facility] [address] [id number] [place] [address]- 1136 Mar, [facility] [place] [facility] [address] [id number] [place] [address]- 2840 Mar, [facility] [place] [facility] [address] [id number] [place] [address]- 8183 Mar, [facility] [place] [facility] [address] [id number] [place] [address]- 2542 Mar, 2012 [facility] [address] [id number] [place] [address]- 5575 Mar, 2012 [facility] [place] [facility] [address] [id number] [place] [address]- 7186 Mar, 2012 [facility] [address] [id number] [place] [address]- 4926 Mar, 2012 [facility] [place] [facility] [address] [id number] [place] [address]- 2548 Mar, [facility] [place] [facility] [address] [id number] [place] [address]- 5791 Mar, [facility] [place] [facility] [address] [id number] [place] [address]- 7369 Mar, [facility] [address] [id number] [place] [address]- 5952 Mar, [facility] [place] [facility] [address] [id number] [place] [address]- 1554 Feb, [facility] [place] [facility] [address] [id number] [place] [address]- 7601 Feb, [facility] [place] [facility] [address] [id number] [place] [address]- 9830 Jan, [facility] [place] [facility] [address] [id number] [place] [address]- 1308 Jan, [facility] [place] [facility] [address] [id number] [place] [address]- 2547 Jan, [facility] [place] [facility] [address] [id number] [place] [address] 254 Nov, [facility] [place] [facility] [address] [id number] [place] [address]- 2546 Oct, [facility] [place] [facility] [address] [id number] [place] [address]- 2548 Oct, [facility] [place] [facility] [address] [id number] [place] [address]- 7281 Oct, [facility] [address] [id number] [place] [address]- 7536 Oct, [facility] [address] [id number] [place] [address]- 6382 Oct, [facility] [address] [id number] [place] [address]- 4639 Oct, [facility] [address] [id number] [place] [address]- 8009 Oct, [facility] [address] [id number] [place] [address]- 2548 Oct, [facility] [address] [id number] [place] [address]- 4753 Sep, [facility] [address] [id number] [place] [address]- 7853 Sep, [facility] [address] [id number] [place] [address]- 3893 Sep, [facility] [address] [id number] [place] [address]- 4697 Sep, [facility] [address] [id number] [place] [address] August, [facility] [address] [id number] [place] [address] August, [facility] [place] [facility] [address] [id number] [place] [address] August, [facility] [place] [facility] [address] [id number] [place] [address] August, [facility] [place] [facility] [address] [id number] [place] [address] August, [facility] [place] [facility] [address] [id number] [address] August, [facility] [address] [id number] [place] [address] Jul, [facility] [address] [id number] [place] [address] May, [facility] [address] [id number] [place] [address] Apr, [facility] [place] [facility] [address] [id number] [place] [address] Apr, [facility] [address] [id number] [place] [address] Apr, [facility] [address] [id number] [place] [address] Mar, [facility] [address] [id number] [place] [address] Mar, [facility] [address] [id number] [place] [address] Mar, [facility] [address] [id number] [place] [address] Mar, [facility] [address] [id number] [place] [address] Jan, [facility] [address] [id number] [place] [address] Nov, [facility] [place] [facility] [address] [id number] [place] [address] Sep, [facility] [place] [facility] [address] [id number] [place] [address] August, [facility] [place] [facility] [address] [id number] [place] [address] August, [facility] [place] [facility] [address] [id number] [place] [address] Jul, [facility] [place] [facility] [id number] [address] Jul, [facility] [id number] [address] [address] Jul, [facility] [id number] [address] Jul, [facility] [id number] [address] [address] Jul, [facility] [id number] [address] Jun, [facility] [id number] [place] [address] Apr, [facility] [id number] [address] [address] Feb, [facility] [id number] [address] Nov, [facility] [id number] [address] Oct, [facility] [id number] [address] Feb, [facility] [address] [id number] [address] [address] August, [facility] [id number] [address] Jul, [facility] [address] [id number] [address] Jun, IMMUNIZATIONS No Known Immunizations SOCIAL HISTORY Never Assessed REASON FOR VISIT Controlled Med Refill 04/19/17 PLAN OF CARE VITAL SIGNS MEDICATIONS Medication [...]
--- OUTSIDE RECORDS SUMMARY | 2017-12-30 00:48 | XMS REPORT ---
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 Name Role Phone MAVERICK SALDIVAR Unavailable PROBLEMS Type Condition ICD9-CM Code YIC66-OZ Code Onset Dates Condition Status SNOMED Code Problem Memory loss R41.3 Active 49254567 Problem Other emphysema J43.8 Active 81885111 Problem Irritable bowel syndrome with diarrhea K58.0 Active 991682856 Problem Chronic prescription benzodiazepine use Z79.899 Active 854062808 Problem Benign familial tremor G25.0 Active 846453806 Problem Other iron deficiency anemia D50.8 Active 89526780 Problem Reactive depression F32.9 Active 61131762 Problem Coarse tremors G25.2 Active 44967374 Problem Claustrophobia F40.240 Active 89485717 Problem Essential hypertension I10 Active 79298914 Problem Anxiety F41.9 Active 46211867 Problem Nicotine abuse Z72.0 Active 46647614 Problem Supplemental oxygen dependent Z99.81 Active 453264967606 Problem Chronic obstructive pulmonary disease with acute exacerbation J44.1 Active 088843331 Problem CAD (coronary artery disease) 414.00 Active 34926176 Problem Pulmonary emphysema, unspecified emphysema type J43.9 Active 95213797 ALLERGIES No Information ENCOUNTERS Encounter Location Date Diagnosis [facility] [id number] [address] Nov, [facility] [id number] [address] Nov, [facility] [address] [address] Oct, [facility] [id number] [address] Oct, Anxiety F41.9 [place] [id number] [place] [address] 31362- 5250 27 Sep, 2017 [place] [address] 64687- 2366 Sep, [facility] [facility] [id number] [place] [address] 38047- 1553 14 Sep, 2017 Anxiety F41.9 [place] [address] 35816- 6775 13 Sep, 2017 Pulmonary emphysema, unspecified emphysema type J43.9 ; Other iron deficiency anemia D50.8 ; Pain of toe of left foot M79.675 and Pain in right toe(s) M79.674 [place] [id number] [place] [address] 54915- 3485 05 Sep, 2017 Mouth pain K13.79 [place] [address] 49827- 1916 Sep, Pain, dental K08.89 [place] [id number] [place] [address] 90461- 4548 Sep, [place] [id number] [place] [address] 69987- 3228 Sep, Pulmonary emphysema, unspecified emphysema type J43.9 ; Nicotine abuse Z72.0 ; Diarrhea, unspecified type R19.7 ; Mouth pain K13.79 and Vision changes H53.9 [place] [id number] [place] [address] 87944- 2397 Sep, [place] [id number] [place] [address] 17620- 0439 August, Anxiety F41.9 [place] [id number] [place] [address] 54151- 1562 Jul, Anxiety F41.9 [place] [id number] [place] [address] 13142- 3042 Jun, Pulmonary emphysema, unspecified emphysema type J43.9 and Anxiety F41.9 [facility] [id number] [place] [address] 26971- 4406 Jun, Anxiety F41.9 [facility] [address] 40080- 7517 Jun, [facility] [address] 09162- 2436 Jun, [facility] [address] 65830- 4364 Jun, [facility] [address] 20093 -[address]00 Jun, Dysuria R30.0 and Acute cystitis with hematuria N30.01 [facility] [address] 70334- 8898 May, Anxiety F41.9 and Chronic prescription benzodiazepine use Z79.899 [facility] [id number] [place] [address] 56531- 7737 May, Anxiety F41.9 and Chronic prescription benzodiazepine use Z79.899 [place] [id number] [place] [address] 80556- 3406 May, Benign familial tremor G25.0 [place] [id number] [place] [address] 02411- 4046 Apr, Other iron deficiency anemia D50.8 [facility] [id number] [place] [address] 70608- 4736 Apr, Anxiety F41.9 [place] [address] 98593- 8203 Apr, [facility] [id number] [place] [address] 74014- 9616 Apr, Pancreatic cyst K86.2 ; Other iron deficiency anemia D50.8 ; Pulmonary emphysema, unspecified emphysema type J43.9 ; Coarse tremors G25.2 and Claustrophobia F40.240 [place] [id number] [place] [address] 08778- 1935 Apr, Anxiety F41.9 [place] [id number] [place] [address] 64973- 9740 Mar, [place] [id number] [place] [address] 78648- 5272 Mar, Anxiety F41.9 [place] [address] 95477- 5019 Feb, Anxiety F41.9 [place] [address] 50058- 8411 Jan, [place] [address] 17230- 0648 Jan, [place] [address] 99972- 3173 Jan, Anxiety F41.9 [place] [id number] [place] [address] 48475- 3727 Jan, Pulmonary emphysema, unspecified emphysema type J43.9 ; Encounter for immunization Z23 ; Other iron deficiency anemia D50.8 ; Anxiety F41.9 ; Diarrhea, unspecified type R19.7 and Memory loss R41.3 [place] [id number] [place] [address] 12147- 4479 Dec, Anxiety F41.9 [place] [id number] [place] [address] 61241- 1582 Dec, Irritable bowel syndrome with diarrhea K58.0 [address] [id number] [place] [address] 82288- 7759 Dec, Diarrhea, unspecified type R19.7 [place] [id number] [place] [address] 22981- 0296 Nov, Acute non-recurrent maxillary sinusitis J01.00 ; Pulmonary emphysema, unspecified emphysema type J43.9 ; Diarrhea, unspecified type R19.7 and Other iron deficiency anemia D50.8 [place] [id number] 94557- 2350 Nov, [facility] [id number] [place] [address] 48555 -7680 Nov, Sore throat J02.9 and Strep pharyngitis J02.0 [place] [address] 64815- 4989 Nov, Other iron deficiency anemia D50.8 [place] [address] 57174- 0011 Nov, Anxiety F41.9 and Low hemoglobin D64.9 [place] [address] 71700- 1459 Oct, Anxiety F41.9 [place] [address] 52334- 6416 16 Sep, 2016 Anxiety F41.9 [place] [address] 28256- 8656 Sep, Left upper quadrant pain R10.12 [place] [address] 74249- 9735 07 Sep, 2016 Other iron deficiency anemia D50.8 and Left upper quadrant pain R10.12 [place] [id number] [place] [address] 18353- 2476 August, Anxiety F41.9 [place] [address] 26562- 1387 August, Other iron deficiency anemia D50.8 and Left upper quadrant pain R10.12 [place] [address] 12297- 6423 Jul, Other iron deficiency anemia D50.8 ; Acute gastric ulcer with hemorrhage K25.0 and Anxiety F41.9 [facility] [id number] [place] [address] 94332- 4077 18 Jul, 2016 Other iron deficiency anemia D50.8 ; Other fatigue R53.83 ; Nicotine abuse Z72.0 ; Anxiety F41.9 and Pulmonary emphysema, unspecified emphysema type J43.9 [facility] [id number] [place] [address] 35759- 3899 31 Jun, 2016 Other iron deficiency anemia D50.8 and Hematochezia K92.1 [facility] [id number] [place] [address] 78657- 3356 Jun, Other fatigue R53.83 and Other iron deficiency anemia D50.8 [place] [id number] [place] [address] 78727- 4901 Jun, Other fatigue R53.83 [place] [id number] [place] [address] 78132- 1168 Jun, Other iron deficiency anemia D50.8 ; Nicotine abuse Z72.0 ; Anxiety F41.9 and Pulmonary emphysema, unspecified emphysema type J43.9 [place] [id number] [place] [address] 81915- 7879 17 Jun, 2016 Low hemoglobin D64.9 [place] [id number] [place] [address] 67496- 3821 16 Jun, 2016 Low hemoglobin D64.9 [place] [id number] [place] [address] 32801- 9881 14 Jun, 2016 Anxiety F41.9 ; Nicotine abuse Z72.0 and Reactive depression F32.9 [place] [id number] [place] [address] 94858- 1751 09 Jun, 2016 Anxiety F41.9 [place] [id number] [place] [address] 98882- 3531 27 May, 2016 Anxiety F41.9 ; Nicotine abuse Z72.0 and Reactive depression F32.9 [place] [id number] [place] [address] 50110- 7034 May, Anxiety F41.9 [facility] [address] 86407- 5113 May, Anxiety F41.9 ; Nicotine abuse Z72.0 and Reactive depression F32.9 [facility] [address] 02183- 6190 May, [facility] [address] 24775- 9803 May, [facility] [address] 32469- 9340 May, Anxiety F41.9 [place] [id number] [place] [address] 17806- 4132 May, Other emphysema J43.8 ; Cramping of hands R25.2 ; Irritable bowel syndrome with diarrhea K58.0 ; Breast cancer screening Z12.39 ; Candidal stomatitis B37.0 and Candidal esophagitis B37.81 [place] [id number] [place] [address] 83311- 5329 Apr, Anxiety F41.9 [place] [id number] [place] [address] 92864- 6892 Mar, Anxiety F41.9 [place] [address] 97516- 3533 Feb, Anxiety F41.9 [facility] [id number] [place] [address] 41251- 8039 Jan, Anxiety F41.9 [place] [id number] [place] [address] 02339- 9563 Jan, Anxiety F41.9 [facility] [id number] [place] [address] 59783- 0500 Jan, Anxiety F41.9 [facility] [address] [address]- 2649 11 Jan, 2016 Anxiety F41.9 ; Nicotine abuse Z72.0 ; Pulmonary emphysema, unspecified emphysema type J43.9 ; Memory loss R41.3 and Abdominal pain, unspecified location R10.9 [facility] [id number] [address]- 9229 Jan, [facility] [id number] [place] [address] 32397- 6064 Dec, Anxiety F41.9 [facility] [id number] [place] [address] 05841 -4429 Dec, Right arm pain M79.601 [facility] [id number] [place] [address] 37130- 4388 Nov, Anxiety F41.9 [facility] [id number] [place] [address] 11228- 5969 Oct, Anxiety F41.9 [facility] [id number] [place] [address] 16087- 3627 Oct, [facility] [id number] [place] [address] 06614- 0412 Sep, Anxiety F41.9 [facility] [id number] [place] [address] 55003- 5517 Sep, Left lower quadrant pain R10.32 ; Memory loss R41.3 and Basal cell carcinoma of skin, unspecified C44.91 [facility] [id number] [place] [address] 03192- 2345 Sep, Anxiety F41.9 [facility] [id number] [place] [address] 82429- 0737 August, Anxiety F41.9 [facility] [id number] [place] [address] 64870- 1966 August, Left lower quadrant pain R10.32 ; Memory loss R41.3 ; Pulmonary emphysema, unspecified emphysema type J43.9 and Depression, unspecified depression type F32.9 [facility] [id number] [place] [address] 82963- 1032 August, [facility] [id number] [place] [address] 37277- 1642 Jul, [facility] [id number] [place] [address] 35559- 8682 Jun, [facility] [id number] [place] [address] 33884- 1484 May, [facility] [id number] [place] [address] 78650- 5907 Apr, [facility] [id number] [place] [address] 25656- 0680 Apr, Chronic obstructive pulmonary disease with acute exacerbation J44.1 ; Anxiety F41.9 and Nicotine abuse Z72.0 [facility] [id number] [place] [address] 85996- 2340 Apr, [facility] [id number] [place] [address] 06114- 0566 Mar, Anxiety disorder, unspecified F41.9 [facility] [id number] [place] [address] 55083- 9281 Mar, [facility] [id number] [place] [address] 61425- 5046 Feb, [facility] [id number] [place] [address] 34101- 8330 Nov, [facility] [id number] [place] [address] 99883- 6132 Nov, [facility] [id number] [place] [address] 75070- 9549 Nov, Basal cell carcinoma 173.91 and Astigmatism with presbyopia 367.20 [facility] [id number] [address]- 9545 Oct, [facility] [id number] [place] [address] 30836- 4123 Oct, Lipoma 214.9 [facility] [id number] [place] [address] 50040- 4912 Sep, Ganglion cyst 727.43 ; Chronic airway obstruction, not elsewhere classified 496 ; Hypertension 401.9 ; CAD (coronary artery disease) 414.00 and Dysthymia 300.4 [facility] [id number] [place] [address] 44282- 1145 Jul, [facility] [id number] [place] [address] 39812- 9796 Jul, [facility] [id number] [place] [address] 64661- 9632 Jun, [facility] [id number] [place] [address] 80117- 2261 Jun, [facility] [id number] [place] [address] 54699- 5129 Jun, [facility] [id number] [place] [address] 38524- 1652 Jun, [facility] [address] [address]- 2246 May, [facility] [address] [place] [address] 99446- 7642 May, [facility] [address] [address]- 0189 Mar, [facility] [id number] [place] [address] 108797- 9193 Mar, [facility] [address] [address]- 1135 Mar, [facility] [id number] [place] [address] 33398- 3676 Mar, [facility] [place] [facility] [address] [id number] [place] [address]- 0063 Feb, [facility] [place] [facility] [address] [id number] [place] [address]- 4992 Feb, [facility] [place] [facility] [address] [id number] [place] [address]- 2584 Feb, [facility] [place] [facility] [address] [id number] [place] [address]- 9214 Feb, [facility] [place] [facility] [address] [id number] [place] [address]- 2246 Feb, [facility] [place] [facility] [address] [id number] [place] [address]- 4597 Feb, [facility] [place] [facility] [address] [id number] [place] [address]- 6935 Feb, [facility] [place] [facility] [address] [id number] [place] [address]- 1361 Feb, [facility] [place] [facility] [address] [id number] [place] [address]- 3469 Feb, [facility] [place] [facility] [address] [id number] [place] [address]- 9411 Feb, [facility] [place] [facility] [address] [id number] [place] [address]- 2766 Dec, [facility] [place] [facility] [address] [id number] [place] [address]- 8190 Dec, [facility] [place] [facility] [address] [id number] [place] [address]- 4909 Nov, [facility] [place] [facility] [address] [id number] [place] [address]- 2467 Oct, [facility] [place] [facility] [address] [id number] [place] [address]- 7016 Oct, [facility] [place] [facility] [address] [id number] [place] [address]- 8671 August, [facility] [place] [facility] [address] [id number] [place] [address]- 8441 August, [facility] [place] [facility] [address] [id number] [place] [address]- 2856 August, [facility] [place] [facility] [address] [id number] [place] [address]- 4616 August, [facility] [place] [facility] [address] [id number] [place] [address]- 2450 Jul, [facility] [place] [facility] [address] [id number] [place] [address]- 1443 Jul, [facility] [place] [facility] [address] [id number] [place] [address]- 1350 Jun, [facility] [place] [facility] [address] [id number] [place] [address]- 9696 Jun, [facility] [place] [facility] [address] [id number] [place] [address]- 6235 Jun, [facility] [place] [facility] [address] [id number] [place] [address]- 3205 Jun, [facility] [place] [facility] [address] [id number] [place] [address]- 3669 Jun, [facility] [place] [facility] [address] [id number] [place] [address]- 3237 Jun, [facility] [place] [facility] [address] [id number] [place] [address]- 5093 Jun, [facility] [place] [facility] [address] [id number] [place] [address]- 2176 Jun, [facility] [place] [facility] [address] [id number] [place] [address]- 7906 Jun, [facility] [place] [facility] [address] [id number] [place] [address]- 1086 Jun, [facility] [place] [facility] [address] [id number] [place] [address]- 0258 Jun, [facility] [place] [facility] [address] [id number] [place] [address]- 5913 Jun, [facility] [place] [facility] [address] [id number] [place] [address]- 5351 Jun, [facility] [place] [facility] [address] [id number] [place] [address]- 9509 Jun, [facility] [place] [facility] [address] [id number] [place] [address]- 3058 Jun, [facility] [place] [facility] [address] [id number] [place] [address]- 6210 Jun, [facility] [place] [facility] [address] [id number] [place] [address]- 1192 Jun, [facility] [place] [facility] [address] [id number] [place] [address]- 3888 Jun, [facility] [place] [facility] [address] [id number] [place] [address]- 7026 Jun, [facility] [place] [facility] [address] [id number] [place] [address]- 7854 May, [facility] [place] [facility] [address] [id number] [place] [address]- 6733 May, [facility] [place] [facility] [address] [id number] [place] [address]- 9640 May, [facility] [place] [facility] [address] [id number] [place] [address]- 8208 May, [facility] [place] [facility] [address] [id number] [place] [address]- 8670 Apr, [facility] [place] [facility] [address] [id number] [place] [address]- 2434 Apr, [facility] [place] [facility] [address] [id number] [place] [address]- 9364 Mar, [facility] [address] [id number] [place] [address]- 8049 Mar, [facility] [address] [id number] [place] [address]- 0487 Mar, [facility] [address] [id number] [place] [address]- 3130 Mar, [facility] [address] [id number] [place] [address]- 9622 Mar, [facility] [address] [id number] [place] [address]- 4902 Mar, [facility] [address] [id number] [place] [address]- 9354 Mar, [facility] [address] [id number] [place] [address]- 0990 Mar, [facility] [address] [id number] [place] [address] Mar, [facility] [address] [id number] [place] [address] Mar, [facility] [address] [facility] [id number] [place] [address] Mar, [facility] [address] [id number] [place] [address] Feb, [facility] [address] [id number] [place] [address] Feb, [facility] [place] [facility] [address] [id number] [place] [address] Jan, [facility] [place] [facility] [address] [id number] [place] [address] Jan, [facility] [address] [id number] [place] [address] Jan, [facility] [place] [facility] [address] [id number] [place] [address] Nov, [facility] [place] [facility] [address] [id number] [place] [address] Oct, [facility] [place] [facility] [address] [id number] [place] [address] Oct, [facility] [place] [facility] [address] [id number] [place] [address] Oct, [facility] [place] [facility] [address] [id number] [place] [address] Oct, [facility] [place] [facility] [address] [id number] [place] [address] Oct, [facility] [place] [facility] [address] [id number] [place] [address] Oct, [facility] [place] [facility] [address] [id number] [place] [address] Oct, [facility] [place] [facility] [address] [id number] [place] [address] Oct, [facility] [place] [facility] [address] [id number] [place] [address] Sep, [facility] [place] [facility] [address] [id number] [place] [address] Sep, [facility] [place] [facility] [address] [id number] [place] [address] Sep, [facility] [place] [facility] [address] [id number] [place] [address] Sep, [facility] [place] [facility] [address] [id number] [place] [address] August, [facility] [place] [facility] [address] [id number] [place] [address] August, [facility] [place] [facility] [address] [id number] [address] August, [facility] [address] [id number] [place] [address] August, [facility] [address] [id number] [place] [address] August, [facility] [address] [facility] [id number] [place] [address] August, [facility] [address] [id number] [place] [address] Jul, [facility] [address] [id number] [place] [address] May, [facility] [address] [id number] [place] [address] Apr, [facility] [address] [facility] [id number] [place] [address] Apr, [facility] [address] [facility] [id number] [place] [address] Apr, [facility] [address] [facility] [id number] [place] [address] Mar, [facility] [address] [facility] [id number] [place] [address] Mar, [facility] [address] [facility] [id number] [place] [address] Mar, [facility] [place] [facility] [address] [id number] [place] [address] Mar, [facility] [place] [facility] [address] [id number] [place] [address] Jan, [facility] [place] [facility] [address] [facility] [id number] [place] [address] Nov, [facility] [place] [facility] [address] [facility] [id number] [place] [address] Sep, [facility] [place] [facility] [address] [id number] [place] [address] August, [facility] [address] [id number] [place] [address] August, [facility] [place] [facility] [address] [id number] [place] [address] Jul, [facility] [address] [id number] [place] [address] Jul, [facility] [place] [facility] [address] [id number] [place] [address] Jul, [facility] [address] [id number] [place] [address] Jul, [facility] [place] [facility] [address] [id number] [place] [address] Jul, [facility] [address] [id number] [place] [address] Jun, [facility] [address] [id number] [place] [address] Apr, [facility] [address] [id number] [place] [address] Feb, [facility] [address] [id number] [place] [address] Nov, [facility] [place] [facility] [address] [id number] [place] [address] Oct, 2010 [facility] [place] [facility] [address] [id number] [place] [address] Feb, [facility] [place] [facility] [address] [id number] [place] [address] August, [facility] [place] [facility] [address] [id number] [place] [address] Jul, [facility] [place] [facility] [address] [id number] [place] [id number] Jun, IMMUNIZATIONS No Known Immunizations SOCIAL HISTORY Never Assessed REASON FOR VISIT Corrected Rx. PLAN OF CARE VITAL SIGNS MEDICATIONS Medication Instructions Dosage Frequency Start Date End Date Duration Status PredniSONE 10 mg 6 tablets x 1 day, 5 tabs for 2 days, 4 tabs for 2 days, 3 tabs for 2 days, 2 tabs for 2 days and 1 tab for 2 days Jun, Active RESULTS No Results PROCEDURES No Known [...]
--- OUTSIDE RECORDS SUMMARY | 2017-12-30 00:48 | XMS REPORT ---
Author Author MAVERICK SALDIVAR Organization [facility] Address [address] [place] [address] Care Team Providers Care Woods Rider Name Role Phone MAVERICK SALDIVAR Unavailable PROBLEMS Type Condition ICD9-CM Code KWM83-QR Code Onset Dates Condition Status SNOMED Code Problem Memory loss R41.3 Active 12330048 Problem Other emphysema J43.8 Active 25086889 Problem Irritable bowel syndrome with diarrhea K58.0 Active 981130602 Problem Chronic prescription benzodiazepine use Z79.899 Active 468323572 Problem Benign familial tremor G25.0 Active 783610270 Problem Other iron deficiency anemia D50.8 Active 45533452 Problem Reactive depression F32.9 Active 25772335 Problem Coarse tremors G25.2 Active 83509148 Problem Claustrophobia F40.240 Active 59014398 Problem Essential hypertension I10 Active 84924314 Problem Anxiety F41.9 Active 67959549 Problem Nicotine abuse Z72.0 Active 46480820 Problem Supplemental oxygen dependent Z99.81 Active 026478616033 Problem Chronic obstructive pulmonary disease with acute exacerbation J44.1 Active 176954787 Problem CAD (coronary artery disease) 414.00 Active 62737592 Problem Pulmonary emphysema, unspecified emphysema type J43.9 Active 83807067 ALLERGIES No Information ENCOUNTERS Encounter Location Date Diagnosis [facility] [id number] [address] Nov, [facility] [id number] [address] 3[address] Nov, [facility] [id number] [address] Oct, [facility] [id number] [address] 5212 Oct, Anxiety F41.9 [place] [id number] [place] [address] 85754- 6823 27 Sep, 2017 [place] [address] 7[address]14- 3716 Sep, [place] [id number] [place] [address] 11553- 0326 14 Sep, 2017 Anxiety F41.9 [place] [address] 17594- 8663 13 Sep, 2017 Pulmonary emphysema, unspecified emphysema type J43.9 ; Other iron deficiency anemia D50.8 ; Pain of toe of left foot M79.675 and Pain in right toe(s) M79.674 [place] [id number] [place] [address] 51650- 4071 05 Sep, 2017 Mouth pain K13.79 [place] [address] 37634- 5175 Sep, Pain, dental K08.89 [place] [id number] [place] [address] 15414- 4287 Sep, [place] [id number] [place] [address] 26132- 3578 Sep, Pulmonary emphysema, unspecified emphysema type J43.9 ; Nicotine abuse Z72.0 ; Diarrhea, unspecified type R19.7 ; Mouth pain K13.79 and Vision changes H53.9 [place] [id number] [place] [address] 14865- 8232 Sep, [place] [id number] [place] [address] 38796- 3490 August, Anxiety F41.9 [place] [id number] [place] [address] 07233- 6015 Jul, Anxiety F41.9 [place] [id number] [place] [address] 37145- 4282 Jun, Pulmonary emphysema, unspecified emphysema type J43.9 and Anxiety F41.9 [facility] [id number] [place] [address] 37202- 5369 Jun, Anxiety F41.9 [facility] [address] 46469- 4335 Jun, [facility] [address] 57241- 1905 Jun, [facility] [address] 09864- 1959 Jun, [facility] [address] 66958 -6453 Jun, Dysuria R30.0 and Acute cystitis with hematuria N30.01 [facility] [address] 53927- 9940 May, Anxiety F41.9 and Chronic prescription benzodiazepine use Z79.899 [facility] [id number] [place] [address] 02228- 2396 May, Anxiety F41.9 and Chronic prescription benzodiazepine use Z79.899 [place] [id number] [place] [address] 68984- 2749 May, Benign familial tremor G25.0 [place] [id number] [place] [address] 44278- 4909 Apr, Other iron deficiency anemia D50.8 [facility] [id number] [place] [address] 56583- 9698 Apr, Anxiety F41.9 [place] [address] 49130- 3927 Apr, [facility] [id number] [place] [address] 45441- 0408 Apr, Pancreatic cyst K86.2 ; Other iron deficiency anemia D50.8 ; Pulmonary emphysema, unspecified emphysema type J43.9 ; Coarse tremors G25.2 and Claustrophobia F40.240 [place] [id number] [place] [address] 09057- 4835 Apr, Anxiety F41.9 [place] [id number] [place] [address] 92520- 7899 Mar, [place] [id number] [place] [address] 37279- 9377 Mar, Anxiety F41.9 [place] [address] 03721- 7140 Feb, Anxiety F41.9 [place] [address] 18354- 5531 Jan, [place] [address] 73259- 9722 Jan, [place] [address] 50358- 7017 Jan, Anxiety F41.9 [place] [id number] [place] [address] 98704- 9325 Jan, Pulmonary emphysema, unspecified emphysema type J43.9 ; Encounter for immunization Z23 ; Other iron deficiency anemia D50.8 ; Anxiety F41.9 ; Diarrhea, unspecified type R19.7 and Memory loss R41.3 [place] [id number] [place] [address] 64138- 3622 Dec, Anxiety F41.9 [place] [id number] [place] [address] 50723- 8377 Dec, Irritable bowel syndrome with diarrhea K58.0 [address] [id number] [place] [address] 82981- 9101 Dec, Diarrhea, unspecified type R19.7 [place] [id number] [place] [address] 77940- 7388 Nov, Acute non-recurrent maxillary sinusitis J01.00 ; Pulmonary emphysema, unspecified emphysema type J43.9 ; Diarrhea, unspecified type R19.7 and Other iron deficiency anemia D50.8 [place] [address] 42567- 2397 Nov, [facility] [id number] [place] [address] 12431 -0070 Nov, Sore throat J02.9 and Strep pharyngitis J02.0 [place] [address] 40589- 4259 Nov, Other iron deficiency anemia D50.8 [place] [address] 89735- 4066 Nov, Anxiety F41.9 and Low hemoglobin D64.9 [place] [address] 74343- 4583 Oct, Anxiety F41.9 [place] [address] 77203- 1631 16 Sep, 2016 Anxiety F41.9 [place] [address] 75217- 7219 Sep, Left upper quadrant pain R10.12 [place] [address] 62700- 0088 07 Sep, 2016 Other iron deficiency anemia D50.8 and Left upper quadrant pain R10.12 [place] [id number] [place] [address] 62792- 0578 August, Anxiety F41.9 [place] [address] 12565- 4558 August, Other iron deficiency anemia D50.8 and Left upper quadrant pain R10.12 [place] [address] 37593- 1489 Jul, Other iron deficiency anemia D50.8 ; Acute gastric ulcer with hemorrhage K25.0 and Anxiety F41.9 [facility] [id number] [place] [address] 02677- 3889 18 Jul, 2016 Other iron deficiency anemia D50.8 ; Other fatigue R53.83 ; Nicotine abuse Z72.0 ; Anxiety F41.9 and Pulmonary emphysema, unspecified emphysema type J43.9 [facility] [id number] [place] [address] 04524- 5003 31 Jun, 2016 Other iron deficiency anemia D50.8 and Hematochezia K92.1 [facility] [id number] [place] [address] 40689- 3796 Jun, Other fatigue R53.83 and Other iron deficiency anemia D50.8 [place] [id number] [place] [address] 38993- 6222 Jun, Other fatigue R53.83 [place] [id number] [place] [address] 27062- 5899 Jun, Other iron deficiency anemia D50.8 ; Nicotine abuse Z72.0 ; Anxiety F41.9 and Pulmonary emphysema, unspecified emphysema type J43.9 [place] [id number] [place] [address] 57926- 6532 17 Jun, 2016 Low hemoglobin D64.9 [place] [id number] [place] [address] 91665- 2010 16 Jun, 2016 Low hemoglobin D64.9 [place] [id number] [place] [address] 33982- 3403 14 Jun, 2016 Anxiety F41.9 ; Nicotine abuse Z72.0 and Reactive depression F32.9 [place] [id number] [place] [address] 68438- 0685 09 Jun, 2016 Anxiety F41.9 [place] [id number] [place] [address] 39669- 7690 27 May, 2016 Anxiety F41.9 ; Nicotine abuse Z72.0 and Reactive depression F32.9 [place] [id number] [place] [address] 95368- 6254 May, Anxiety F41.9 [facility] [address] 21132- 7020 May, Anxiety F41.9 ; Nicotine abuse Z72.0 and Reactive depression F32.9 [facility] [address] 44672- 9281 May, [facility] [address] 50560- 0375 May, [facility] [address] 30994- 0860 May, Anxiety F41.9 [place] [id number] [place] [address] 10897- 9215 May, Other emphysema J43.8 ; Cramping of hands R25.2 ; Irritable bowel syndrome with diarrhea K58.0 ; Breast cancer screening Z12.39 ; Candidal stomatitis B37.0 and Candidal esophagitis B37.81 [place] [id number] [place] [address] 79850- 0346 Apr, Anxiety F41.9 [place] [id number] [place] [address] 64051- 5651 Mar, Anxiety F41.9 [place] [address] 89046- 1859 Feb, Anxiety F41.9 [facility] [id number] [place] [address] 06965- 6357 Jan, Anxiety F41.9 [place] [id number] [place] [address] 02780- 8201 Jan, Anxiety F41.9 [facility] [id number] [place] [address] 04870- 7303 Jan, Anxiety F41.9 [facility] [address] [address]- 9093 11 Jan, 2016 Anxiety F41.9 ; Nicotine abuse Z72.0 ; Pulmonary emphysema, unspecified emphysema type J43.9 ; Memory loss R41.3 and Abdominal pain, unspecified location R10.9 [facility] [id number] [address]- 6518 Jan, [facility] [id number] [place] [address] 58557- 2949 Dec, Anxiety F41.9 [facility] [id number] [place] [address] 43321 -0230 Dec, Right arm pain M79.601 [facility] [id number] [place] [address] 33646- 5949 Nov, Anxiety F41.9 [facility] [id number] [place] [address] 51201- 5745 Oct, Anxiety F41.9 [facility] [id number] [place] [address] 28927- 2179 Oct, [facility] [id number] [place] [address] 54903- 9137 Sep, Anxiety F41.9 [facility] [id number] [place] [address] 09521- 8282 Sep, Left lower quadrant pain R10.32 ; Memory loss R41.3 and Basal cell carcinoma of skin, unspecified C44.91 [facility] [id number] [place] [address] 43507- 5171 Sep, Anxiety F41.9 [facility] [id number] [place] [address] 66117- 5925 August, Anxiety F41.9 [facility] [id number] [place] [address] 19799- 1585 August, Left lower quadrant pain R10.32 ; Memory loss R41.3 ; Pulmonary emphysema, unspecified emphysema type J43.9 and Depression, unspecified depression type F32.9 [facility] [id number] [place] [address] 53172- 6618 August, [facility] [id number] [place] [address] 92112- 9871 Jul, [facility] [id number] [place] [address] 48798- 6655 Jun, [facility] [id number] [place] [address] 47120- 3594 May, [facility] [id number] [place] [address] 22335- 9078 Apr, [facility] [id number] [place] [address] 36706- 5684 Apr, Chronic obstructive pulmonary disease with acute exacerbation J44.1 ; Anxiety F41.9 and Nicotine abuse Z72.0 [facility] [id number] [place] [address] 39913- 3835 Apr, [facility] [id number] [place] [address] 01669- 3433 Mar, Anxiety disorder, unspecified F41.9 [facility] [id number] [place] [address] 39358- 2328 Mar, [facility] [id number] [place] [address] 40078- 1501 Feb, [facility] [id number] [place] [address] 07572- 4567 Nov, [facility] [id number] [place] [address] 78635- 5801 Nov, [facility] [id number] [place] [address] 01991- 2577 Nov, Basal cell carcinoma 173.91 and Astigmatism with presbyopia 367.20 [facility] [id number] [address]- 1661 Oct, [facility] [id number] [place] [address] 99390- 9899 Oct, Lipoma 214.9 [facility] [id number] [place] [address] 19573- 6945 Sep, Ganglion cyst 727.43 ; Chronic airway obstruction, not elsewhere classified 496 ; Hypertension 401.9 ; CAD (coronary artery disease) 414.00 and Dysthymia 300.4 [facility] [id number] [place] [address] 84201- 1257 Jul, [facility] [id number] [place] [address] 22815- 9193 Jul, [facility] [id number] [place] [address] 61084- 7393 Jun, [facility] [id number] [place] [address] 81695- 6194 Jun, [facility] [id number] [place] [address] 52243- 6030 Jun, [facility] [id number] [place] [address] 71928- 3252 Jun, [facility] [address] [address]- 9066 May, [facility] [id number] [place] [address] 93605- 3209 May, [facility] [address] [address]- 3456 Mar, [facility] [id number] [place] [address] 604006- 7281 Mar, [facility] [address] [address]- 6532 Mar, [facility] [id number] [place] [address] 98951- 5903 Mar, [facility] [place] [facility] [address] [id number] [place] [address]- 7997 Feb, [facility] [place] [facility] [address] [id number] [place] [address]- 8286 Feb, [facility] [place] [facility] [address] [id number] [place] [address]- 0162 Feb, [facility] [place] [facility] [address] [id number] [place] [address]- 1290 Feb, [facility] [place] [facility] [address] [id number] [place] [address]- 2145 Feb, [facility] [place] [facility] [address] [id number] [place] [address]- 4534 Feb, [facility] [place] [facility] [address] [id number] [place] [address]- 4410 Feb, [facility] [place] [facility] [address] [id number] [place] [address]- 4245 Feb, [facility] [place] [facility] [address] [id number] [place] [address]- 8517 Feb, [facility] [place] [facility] [address] [id number] [place] [address]- 6249 Feb, [facility] [place] [facility] [address] [id number] [place] [address]- 1585 Dec, [facility] [place] [facility] [address] [id number] [place] [address]- 3204 Dec, [facility] [place] [facility] [address] [id number] [place] [address]- 4674 Nov, [facility] [place] [facility] [address] [id number] [place] [address]- 4643 Oct, [facility] [place] [facility] [address] [id number] [place] [address]- 5576 Oct, [facility] [place] [facility] [address] [id number] [place] [address]- 3153 August, [facility] [place] [facility] [address] [id number] [place] [address]- 7415 August, [facility] [place] [facility] [address] [id number] [place] [address]- 2666 August, [facility] [place] [facility] [address] [id number] [place] [address]- 0896 August, [facility] [place] [facility] [address] [id number] [place] [address]- 2915 Jul, [facility] [place] [facility] [address] [id number] [place] [address]- 8975 Jul, [facility] [place] [facility] [address] [id number] [place] [address]- 5138 Jun, [facility] [place] [facility] [address] [id number] [place] [address]- 0296 Jun, [facility] [place] [facility] [address] [id number] [place] [address]- 9728 Jun, [facility] [place] [facility] [address] [id number] [place] [address]- 9150 Jun, [facility] [place] [facility] [address] [id number] [place] [address]- 9256 Jun, [facility] [place] [facility] [address] [id number] [place] [address]- 5619 Jun, [facility] [place] [facility] [address] [id number] [place] [address]- 8255 Jun, [facility] [place] [facility] [address] [id number] [place] [address]- 6487 Jun, [facility] [place] [facility] [address] [id number] [place] [address]- 7186 Jun, [facility] [place] [facility] [address] [id number] [place] [address]- 4436 Jun, [facility] [place] [facility] [address] [id number] [place] [address]- 1455 Jun, [facility] [place] [facility] [address] [id number] [place] [address]- 8235 Jun, [facility] [place] [facility] [address] [id number] [place] [address]- 0995 Jun, [facility] [place] [facility] [address] [id number] [place] [address]- 4972 Jun, [facility] [place] [facility] [address] [id number] [place] [address]- 6297 Jun, [facility] [place] [facility] [address] [id number] [place] [address]- 3408 Jun, [facility] [place] [facility] [address] [id number] [place] [address]- 9076 Jun, [facility] [place] [facility] [address] [id number] [place] [address]- 7951 Jun, [facility] [place] [facility] [address] [id number] [place] [address]- 2864 Jun, [facility] [place] [facility] [address] [id number] [place] [address]- 7727 May, [facility] [place] [facility] [address] [id number] [place] [address]- 5964 May, [facility] [place] [facility] [address] [id number] [place] [address]- 0582 May, [facility] [place] [facility] [address] [id number] [place] [address]- 4378 May, [facility] [place] [facility] [address] [id number] [place] [address]- 3600 Apr, [facility] [place] [facility] [address] [id number] [place] [address]- 9746 Apr, [facility] [place] [facility] [address] [id number] [place] [address]- 0862 Mar, [facility] [address] [id number] [place] [address]- 9673 Mar, [facility] [address] [id number] [place] [address]- 2900 Mar, [facility] [address] [id number] [place] [address]- 2700 Mar, [facility] [address] [id number] [place] [address]- 0536 Mar, [facility] [address] [id number] [place] [address]- 3061 Mar, [facility] [address] [id number] [place] [address]- 0054 Mar, [facility] [address] [id number] [place] [address]- 2495 Mar, [facility] [address] [id number] [place] [address]- 7894 Mar, [facility] [address] [id number] [place] [address]- 5021 Mar, [facility] [address] [facility] [id number] [place] [address]- 8809 Mar, [facility] [address] [id number] [place] [address] Feb, [facility] [address] [id number] [place] [address] Feb, [facility] [place] [facility] [address] [id number] [place] [address] Jan, [facility] [place] [facility] [address] [id number] [place] [address] Jan, [facility] [address] [id number] [place] [address] Jan, [facility] [place] [facility] [address] [id number] [place] [address] Nov, [facility] [place] [facility] [address] [id number] [place] [address] Oct, [facility] [place] [facility] [address] [id number] [place] [address] Oct, [facility] [place] [facility] [address] [id number] [place] [address] Oct, [facility] [place] [facility] [address] [id number] [place] [address] Oct, [facility] [place] [facility] [address] [id number] [place] [address] Oct, [facility] [place] [facility] [address] [id number] [place] [address] Oct, [facility] [place] [facility] [address] [id number] [place] [address] Oct, [facility] [place] [facility] [address] [id number] [place] [address] Oct, [facility] [place] [facility] [address] [id number] [place] [address] Sep, [facility] [place] [facility] [address] [id number] [place] [address] Sep, [facility] [place] [facility] [address] [id number] [place] [address] Sep, [facility] [place] [facility] [address] [id number] [place] [address] Sep, [facility] [place] [facility] [address] [id number] [place] [address] August, [facility] [place] [facility] [address] [id number] [place] [address] August, [facility] [place] [facility] [address] [id number] [place] [address] August, [facility] [address] [id number] [place] [address] August, [facility] [address] [id number] [place] [address] August, [facility] [address] [facility] [id number] [place] [address] August, [facility] [address] [id number] [place] [address] Jul, [facility] [address] [id number] [place] [address] May, [facility] [address] [id number] [place] [address] Apr, [facility] [address] [facility] [id number] [place] [address] Apr, [facility] [address] [facility] [id number] [place] [address] Apr, [facility] [address] [facility] [id number] [place] [address] Mar, [facility] [address] [facility] [id number] [place] [address] Mar, [facility] [address] [facility] [id number] [place] [address] Mar, [facility] [place] [facility] [address] [id number] [place] [address] Mar, [facility] [place] [facility] [address] [id number] [place] [address] Jan, [facility] [place] [facility] [address] [facility] [id number] [place] [address] Nov, [facility] [place] [facility] [address] [facility] [id number] [place] [address] Sep, [facility] [place] [facility] [address] [id number] [place] [address] August, [facility] [address] [id number] [place] [address] August, [facility] [place] [facility] [address] [id number] [place] [address] Jul, [facility] [address] [id number] [place] [address] Jul, [facility] [place] [facility] [address] [id number] [place] [address] Jul, [facility] [address] [id number] [place] [address] Jul, [facility] [place] [facility] [address] [id number] [place] [address] Jul, [facility] [address] [id number] [place] [address] Jun, [facility] [address] [id number] [place] [address] Apr, [facility] [address] [id number] [place] [address] Feb, [facility] [address] [id number] [place] [address] Nov, [facility] [place] [facility] [address] [id number] [place] [address] 14 Oct, 2010 [facility] [place] [facility] [address] [id number] [place] [address] Feb, [facility] [place] [facility] [address] [id number] [place] [address] August, [facility] [place] [facility] [address] [id number] [place] [address] Jul, [facility] [place] [facility] [address] [id number] [place] [address] Jun, IMMUNIZATIONS No Known Immunizations SOCIAL HISTORY Never Assessed REASON FOR VISIT Rx PLAN OF CARE VITAL SIGNS MEDICATIONS Medication Instructions Dosage Frequency Start Date End Date Duration Status PredniSONE 10 mg Orally Once a day at noon 6 tablets (60 mg) Jun, Jun, 05 days Active Cefdinir 300 MG Orally every 12 hrs 1 capsule 12h Jun, Jun, 2 days Active RESULTS No Results PROCEDURES No [...]
--- OUTSIDE RECORDS SUMMARY | 2017-12-30 00:49 | XMS REPORT ---
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 Name Role Phone MAVERICK SALDIVAR Unavailable PROBLEMS Type Condition ICD9-CM Code TLG58-PQ Code Onset Dates Condition Status SNOMED Code Problem Memory loss R41.3 Active 91040490 Problem Other emphysema J43.8 Active 01825126 Problem Irritable bowel syndrome with diarrhea K58.0 Active 898954827 Problem Chronic prescription benzodiazepine use Z79.899 Active 289582078 Problem Benign familial tremor G25.0 Active 107507660 Problem Other iron deficiency anemia D50.8 Active 88834413 Problem Reactive depression F32.9 Active 59849213 Problem Coarse tremors G25.2 Active 17180359 Problem Claustrophobia F40.240 Active 48909667 Problem Essential hypertension I10 Active 82320531 Problem Anxiety F41.9 Active 79770515 Problem Nicotine abuse Z72.0 Active 80981605 Problem Supplemental oxygen dependent Z99.81 Active 165996255299 Problem Chronic obstructive pulmonary disease with acute exacerbation J44.1 Active 722793507 Problem CAD (coronary artery disease) 414.00 Active 17046441 Problem Pulmonary emphysema, unspecified emphysema type J43.9 Active 46690840 ALLERGIES No Information ENCOUNTERS Encounter Location Date Diagnosis [facility] [id number], [place] [address] Nov, [facility] [id number], [place] [address] Nov, [facility] [address], [place] [address] Oct, [facility] [id number], [place] [address] Oct, Anxiety F41.9 [place] [id number] [place] [address] 71953- 1183 27 Sep, 2017 [place] [address] 23738- 7256 Sep, [place] [id number] [place] [address] 46794- 9466 14 Sep, 2017 Anxiety F41.9 [place] [address] 70722- 7104 13 Sep, 2017 Pulmonary emphysema, unspecified emphysema type J43.9 ; Other iron deficiency anemia D50.8 ; Pain of toe of left foot M79.675 and Pain in right toe(s) M79.674 [place] [id number] [place] [address] 88340- 2653 05 Sep, 2017 Mouth pain K13.79 [place] [address] 53829- 4402 Sep, Pain, dental K08.89 [place] [id number] [place] [address] 30509- 4750 Sep, [place] [id number] [place] [address] 84138- 5698 Sep, Pulmonary emphysema, unspecified emphysema type J43.9 ; Nicotine abuse Z72.0 ; Diarrhea, unspecified type R19.7 ; Mouth pain K13.79 and Vision changes H53.9 [place] [id number] [place] [address] 28029- 1791 Sep, [place] [id number] [place] [address] 55902- 0332 August, Anxiety F41.9 [place] [id number] [place] [address] 70363- 2753 Jul, Anxiety F41.9 [place] [id number] [place] [address] 85509- 0447 Jun, Pulmonary emphysema, unspecified emphysema type J43.9 and Anxiety F41.9 [facility] [id number] [place] [address] 34653- 5520 Jun, Anxiety F41.9 [facility] [address] 81926- 2385 Jun, [facility] [address] 24194- 4713 Jun, [facility] [address] 16792- 0012 Jun, [facility] [address] 20858 -0254 Jun, Dysuria R30.0 and Acute cystitis with hematuria N30.01 [facility] [address] 60417- 2687 May, Anxiety F41.9 and Chronic prescription benzodiazepine use Z79.899 [facility] [id number] [place] [address] 24093- 2210 May, Anxiety F41.9 and Chronic prescription benzodiazepine use Z79.899 [place] [id number] [place] [address] 45851- 2230 May, Benign familial tremor G25.0 [place] [id number] [place] [address] 16208- 4592 Apr, Other iron deficiency anemia D50.8 [facility] [id number] [place] [address] 72968- 6878 Apr, Anxiety F41.9 [place] [address] 20603- 4340 Apr, [facility] [id number] [place] [address] 54913- 6994 Apr, Pancreatic cyst K86.2 ; Other iron deficiency anemia D50.8 ; Pulmonary emphysema, unspecified emphysema type J43.9 ; Coarse tremors G25.2 and Claustrophobia F40.240 [place] [id number] [place] [address] 25540- 2753 Apr, Anxiety F41.9 [place] [id number] [place] [address] 11095- 1837 Mar, [place] [id number] [place] [address] 30604- 4555 Mar, Anxiety F41.9 [place] [address] 78381- 7036 Feb, Anxiety F41.9 [place] [address] 86658- 9461 Jan, [place] [address] 41645- 6251 Jan, [place] [address] 66590- 0864 Jan, Anxiety F41.9 [place] [id number] [place] [address] 50454- 4040 Jan, Pulmonary emphysema, unspecified emphysema type J43.9 ; Encounter for immunization Z23 ; Other iron deficiency anemia D50.8 ; Anxiety F41.9 ; Diarrhea, unspecified type R19.7 and Memory loss R41.3 [place] [id number] [place] [address] 88502- 3724 Dec, Anxiety F41.9 [place] [id number] [place] [address] 20147- 7969 Dec, Irritable bowel syndrome with diarrhea K58.0 [address] [id number] [place] [address] 98743- 7418 Dec, Diarrhea, unspecified type R19.7 [place] [id number] [place] [address] 57137- 0242 Nov, Acute non-recurrent maxillary sinusitis J01.00 ; Pulmonary emphysema, unspecified emphysema type J43.9 ; Diarrhea, unspecified type R19.7 and Other iron deficiency anemia D50.8 [place] [address] 19050- 2173 Nov, [facility] [id number] [place] [address] 78889 -8456 Nov, Sore throat J02.9 and Strep pharyngitis J02.0 [place] [address] 67333- 7762 Nov, Other iron deficiency anemia D50.8 [place] [address] 78220- 4296 Nov, Anxiety F41.9 and Low hemoglobin D64.9 [place] [address] 53275- 5617 Oct, Anxiety F41.9 [place] [address] 36326- 0565 16 Sep, 2016 Anxiety F41.9 [place] [address] 20635- 7581 Sep, Left upper quadrant pain R10.12 [place] [address] 81378- 9630 07 Sep, 2016 Other iron deficiency anemia D50.8 and Left upper quadrant pain R10.12 [place] [id number] [place] [address] 32179- 6075 August, Anxiety F41.9 [place] [address] 85014- 2664 August, Other iron deficiency anemia D50.8 and Left upper quadrant pain R10.12 [place] [address] 19873- 7307 Jul, Other iron deficiency anemia D50.8 ; Acute gastric ulcer with hemorrhage K25.0 and Anxiety F41.9 [facility] [id number] [place] [address] 08372- 8641 18 Jul, 2016 Other iron deficiency anemia D50.8 ; Other fatigue R53.83 ; Nicotine abuse Z72.0 ; Anxiety F41.9 and Pulmonary emphysema, unspecified emphysema type J43.9 [facility] [id number] [place] [address] 57075- 1397 31 Jun, 2016 Other iron deficiency anemia D50.8 and Hematochezia K92.1 [facility] [id number] [place] [address] 36634- 5671 Jun, Other fatigue R53.83 and Other iron deficiency anemia D50.8 [place] [id number] [place] [address] 52189- 9802 Jun, Other fatigue R53.83 [place] [id number] [place] [address] 14492- 8714 Jun, Other iron deficiency anemia D50.8 ; Nicotine abuse Z72.0 ; Anxiety F41.9 and Pulmonary emphysema, unspecified emphysema type J43.9 [place] [id number] [place] [address] 39174- 9992 17 Jun, 2016 Low hemoglobin D64.9 [place] [id number] [place] [address] 83320- 3741 16 Jun, 2016 Low hemoglobin D64.9 [place] [id number] [place] [address] 77626- 3607 14 Jun, 2016 Anxiety F41.9 ; Nicotine abuse Z72.0 and Reactive depression F32.9 [place] [id number] [place] [address] 10232- 2099 09 Jun, 2016 Anxiety F41.9 [place] [id number] [place] [address] 66502- 7683 27 May, 2016 Anxiety F41.9 ; Nicotine abuse Z72.0 and Reactive depression F32.9 [place] [id number] [place] [address] 41888- 3513 May, Anxiety F41.9 [facility] [address] 78790- 9910 May, Anxiety F41.9 ; Nicotine abuse Z72.0 and Reactive depression F32.9 [facility] [address] 01902- 4091 May, [facility] [address] 84594- 8509 May, [facility] [address] 44882- 1050 May, Anxiety F41.9 [place] [id number] [place] [address] 57752- 7644 May, Other emphysema J43.8 ; Cramping of hands R25.2 ; Irritable bowel syndrome with diarrhea K58.0 ; Breast cancer screening Z12.39 ; Candidal stomatitis B37.0 and Candidal esophagitis B37.81 [place] [id number] [place] [address] 14542- 5785 Apr, Anxiety F41.9 [place] [id number] [place] [address] 50010- 4976 Mar, Anxiety F41.9 [place] [address] 95935- 4448 Feb, Anxiety F41.9 [facility] [id number] [place] [address] 25766- 4353 Jan, Anxiety F41.9 [place] [id number] [place] [address] 16061- 6488 Jan, Anxiety F41.9 [facility] [id number] [place] [address] 27292- 5700 Jan, Anxiety F41.9 [facility] [address], [place] [address]- 1642 11 Jan, 2016 Anxiety F41.9 ; Nicotine abuse Z72.0 ; Pulmonary emphysema, unspecified emphysema type J43.9 ; Memory loss R41.3 and Abdominal pain, unspecified location R10.9 [facility] [id number], [place] [address]- 2568 Jan, [facility] [id number] [place] [address] 73131- 6360 Dec, Anxiety F41.9 [facility] [id number] [place] [address] 29451 -8831 Dec, Right arm pain M79.601 [facility] [id number] [place] [address] 22945- 6321 Nov, Anxiety F41.9 [facility] [id number] [place] [address] 06770- 5507 Oct, Anxiety F41.9 [facility] [id number] [place] [address] 78879- 8638 Oct, [facility] [id number] [place] [address] 50352- 6187 Sep, Anxiety F41.9 [facility] [id number] [place] [address] 50830- 1155 Sep, Left lower quadrant pain R10.32 ; Memory loss R41.3 and Basal cell carcinoma of skin, unspecified C44.91 [facility] [id number] [place] [address] 56214- 8970 Sep, Anxiety F41.9 [facility] [id number] [place] [address] 97515- 8567 August, Anxiety F41.9 [facility] [id number] [place] [address] 52228- 7091 August, Left lower quadrant pain R10.32 ; Memory loss R41.3 ; Pulmonary emphysema, unspecified emphysema type J43.9 and Depression, unspecified depression type F32.9 [facility] [id number] [place] [address] 66079- 4459 August, [facility] [id number] [place] [address] 21387- 5579 Jul, [facility] [id number] [place] [address] 69829- 8032 Jun, [facility] [id number] [place] [address] 73304- 4517 May, [facility] [id number] [place] [address] 45605- 7210 Apr, [facility] [id number] [place] [address] 57368- 3799 Apr, Chronic obstructive pulmonary disease with acute exacerbation J44.1 ; Anxiety F41.9 and Nicotine abuse Z72.0 [facility] [id number] [place] [address] 22971- 6436 Apr, [facility] [id number] [place] [address] 49414- 0096 Mar, Anxiety disorder, unspecified F41.9 [facility] [id number] [place] [address] 75442- 0630 Mar, [facility] [id number] [place] [address] 89646- 3815 Feb, [facility] [id number] [place] [address] 09540- 7892 Nov, [facility] [id number] [place] [address] 00883- 9647 Nov, [facility] [id number] [place] [address] 42208- 7139 Nov, Basal cell carcinoma 173.91 and Astigmatism with presbyopia 367.20 [facility] [id number] [address]- 9926 Oct, [facility] [id number] [place] [address] 73729- 4122 Oct, Lipoma 214.9 [facility] [id number] [place] [address] 55643- 2238 Sep, Ganglion cyst 727.43 ; Chronic airway obstruction, not elsewhere classified 496 ; Hypertension 401.9 ; CAD (coronary artery disease) 414.00 and Dysthymia 300.4 [facility] [id number] [place] [address] 14915- 2812 Jul, [facility] [id number] [place] [address] 62696- 9131 Jul, [facility] [id number] [place] [address] 40822- 2293 Jun, [facility] [id number] [place] [address] 56225- 5791 Jun, [facility] [id number] [place] [address] 36855- 4834 Jun, [facility] [id number] [place] [address] 45103- 7916 Jun, [facility] [address], [place] [address]- 2645 May, [facility] [id number] [place] [address] 24700- 2085 May, [facility] [address], [place] [address]- 0589 Mar, [facility] [id number] [place] [address] 675534- 2008 Mar, [facility] [address], [place] [address]- 0036 Mar, [facility] [id number] [place] [address] 45505- 0740 Mar, [facility] [place] [facility] [address] [id number] [place] [address]- 9979 Feb, [facility] [place] [facility] [address] [id number] [place] [address]- 2329 Feb, [facility] [place] [facility] [address] [id number] [place] [address]- 2832 Feb, [facility] [place] [facility] [address] [id number] [place] [address]- 6422 Feb, [facility] [place] [facility] [address] [id number] [place] [address]- 4777 Feb, [facility] [place] [facility] [address] [id number] [place] [address]- 1019 Feb, [facility] [place] [facility] [address] [id number] [place] [address]- 9807 Feb, [facility] [place] [facility] [address] [id number] [place] [address]- 4467 Feb, [facility] [place] [facility] [address] [id number] [place] [address]- 1925 Feb, [facility] [place] [facility] [address] [id number] [place] [address]- 9522 Feb, [facility] [place] [facility] [address] [id number] [place] [address]- 1686 Dec, [facility] [place] [facility] [address] [id number] [place] [address]- 3884 Dec, [facility] [place] [facility] [address] [id number] [place] [address]- 5927 Nov, [facility] [place] [facility] [address] [id number] [place] [address]- 4634 Oct, [facility] [place] [facility] [address] [id number] [place] [address]- 1680 Oct, [facility] [place] [facility] [address] [id number] [place] [address]- 2426 August, [facility] [place] [facility] [address] [id number] [place] [address]- 3752 August, [facility] [place] [facility] [address] [id number] [place] [address]- 5626 August, [facility] [place] [facility] [address] [id number] [place] [address]- 9886 August, [facility] [place] [facility] [address] [id number] [place] [address]- 6536 Jul, [facility] [place] [facility] [address] [id number] [place] [address]- 1093 Jul, [facility] [place] [facility] [address] [id number] [place] [address]- 5110 Jun, [facility] [place] [facility] [address] [id number] [place] [address]- 3889 Jun, [facility] [place] [facility] [address] [id number] [place] [address]- 6330 Jun, [facility] [place] [facility] [address] [id number] [place] [address]- 9870 Jun, [facility] [place] [facility] [address] [id number] [place] [address]- 2101 Jun, [facility] [place] [facility] [address] [id number] [place] [address]- 0434 Jun, [facility] [place] [facility] [address] [id number] [place] [address]- 8435 Jun, [facility] [place] [facility] [address] [id number] [place] [address]- 3333 Jun, [facility] [place] [facility] [address] [id number] [place] [address]- 6906 Jun, [facility] [place] [facility] [address] [id number] [place] [address]- 9929 Jun, [facility] [place] [facility] [address] [id number] [place] [address]- 2636 Jun, [facility] [place] [facility] [address] [id number] [place] [address]- 3106 Jun, [facility] [place] [facility] [address] [id number] [place] [address]- 9456 Jun, [facility] [place] [facility] [address] [id number] [place] [address]- 3513 Jun, [facility] [place] [facility] [address] [id number] [place] [address]- 6274 Jun, [facility] [place] [facility] [address] [id number] [place] [address]- 9414 Jun, [facility] [place] [facility] [address] [id number] [place] [address]- 7576 Jun, [facility] [place] [facility] [address] [id number] [place] [address]- 9990 Jun, [facility] [place] [facility] [address] [id number] [place] [address]- 7293 Jun, [facility] [place] [facility] [address] [id number] [place] [address]- 1461 May, [facility] [place] [facility] [address] [id number] [place] [address]- 8603 May, [facility] [place] [facility] [address] [id number] [place] [address]- 5069 May, [facility] [place] [facility] [address] [id number] [place] [address]- 4395 May, [facility] [place] [facility] [address] [id number] [place] [address]- 0130 Apr, [facility] [place] [facility] [address] [id number] [place] [address]- 4988 Apr, [facility] [place] [facility] [address] [id number] [place] [address]- 4447 Mar, [facility] [address] [id number] [place] [address]- 2284 Mar, [facility] [address] [id number] [place] [address]- 8631 Mar, [facility] [address] [id number] [place] [address]- 9638 Mar, [facility] [address] [id number] [place] [address]- 7131 Mar, [facility] [address] [id number] [place] [address]- 2928 Mar, [facility] [address] [id number] [place] [address]- 4766 Mar, [facility] [address] [id number] [place] [address] Mar, [facility] [address] [id number] [place] [address] Mar, [facility] [address] [id number] [place] [address] Mar, [facility] [address] [facility] [id number] [place] [address] Mar, [facility] [address] [id number] [place] [address] Feb, [facility] [address] [id number] [place] [address] Feb, [facility] [place] [facility] [address] [id number] [place] [address] Jan, [facility] [place] [facility] [address] [id number] [place] [address] Jan, [facility] [address] [id number] [place] [address] Jan, [facility] [place] [facility] [address] [id number] [place] [address] Nov, [facility] [place] [facility] [address] [id number] [place] [address] Oct, [facility] [place] [facility] [address] [id number] [place] [address] Oct, [facility] [place] [facility] [address] [id number] [place] [address] Oct, [facility] [place] [facility] [address] [id number] [place] [address]- [address] Oct, [facility] [place] [facility] [address] [id number] [place] [address]- [address] Oct, [facility] [place] [facility] [address] [id number] [place] [address] Oct, [facility] [place] [facility] [address] [id number] [place] [address]- [address] Oct, [facility] [place] [facility] [address] [id number] [place] [address]- [address] Oct, [facility] [place] [facility] [address] [id number] [place] [address] Sep, [facility] [place] [facility] [address] [id number] [place] [address] Sep, [facility] [place] [facility] [address] [id number] [place] [address]- [address] Sep, [facility] [place] [facility] [address] [id number] [place] [address]- [address] Sep, [facility] [place] [facility] [address] [id number] [place] [address]- [address] August, [facility] [place] [facility] [address] [id number] [place] [address]- [address] August, [facility] [place] [facility] [address] [id number], [place] [address] August, [facility] [address] [id number] [place] [address] August, [facility] [address] [id number] [place] [address] August, [facility] [address] [facility] [id number] [place] [address]- 140[address] August, [facility] [address] [id number] [place] [address] Jul, [facility] [address] [id number] [place] [address] May, [facility] [address] [id number] [place] [address]- [address] Apr, [facility] [address] [facility] [id number] [place] [address] Apr, [facility] [address] [facility] [id number] [place] [address] Apr, [facility] [address] [facility] [id number] [place] [address]- [address] Mar, [facility] [address] [facility] [id number] [place] [address] Mar, [facility] [address] [facility] [id number] [place] [address] Mar, [facility] [place] [facility] [address] [address] [id number] [place] [address] Mar, [facility] [place] [facility] [address] [id number] [place] [address] Jan, [facility] [place] [facility] [address] [facility] [id number] [place] [address] Nov, [facility] [place] [facility] [address] [facility] [id number] [place] [address] Sep, [facility] [place] [facility] [address] [id number] [place] [address] August, [facility] [address] [id number] [place] [address] August, [facility] [place] [facility] [address] [id number] [place] [address] Jul, [facility] [address] [id number] [place] [address] Jul, [facility] [place] [facility] [address] [id number] [place] [address] Jul, [facility] [address] [id number] [place] [address] Jul, [facility] [place] [facility] [address] [id number] [place] [address] Jul, [facility] [address] [id number] [place] [address] Jun, [facility] [address] [id number] [place] [address] Apr, [facility] [address] [id number] [place] [address] Feb, [facility] [address] [id number] [place] [address] Nov, [facility] [place] [facility] [address] [id number] [place] [address] Oct, 2010 [facility] [place] [facility] [address] [id number] [place] [address] Feb, [facility] [place] [facility] [address] [id number] [place] [address] August, [facility] [place] [facility] [address] [id number] [place] [address] Jul, [facility] [place] [facility] [address] [id number] [place] [address] Jun, IMMUNIZATIONS No Known Immunizations SOCIAL HISTORY Never Assessed REASON FOR VISIT Updated Med List PLAN OF CARE VITAL SIGNS MEDICATIONS Medication Instructions Dosage Frequency Start Date End Date Duration Status Viberzi 75 MG Orally Twice a day 1 tablet with food 12h Dec, Not-Taking Plavix 75 mg take 1 tablet (75 mg) by oral route once daily Sep, Active Vitamin D3 1,000 unit take 1 Tablet by Oral route 1 time per day take one tablet orally daily Jun, Not-Taking Aspirin 81 mg take 1 tablet (81 mg) by oral route once daily Sep, Active Cefdinir 300 MG Orally every 12 hrs 1 capsule 12h Active Ativan 1 MG Orally 2 times a day 1 tablet as needed 12h Jun, 28 days Active Magnesium 250 MG Orally twice a day 1 tablet with a meal 12h Active Folic Acid 0.8 mg Orally Once a day 1/2 tablet 24h Active Pristiq 100 MG TAKE ONE TABLET BY MOUTH DAILY 90 Active Nitroglycerin 0.4 MG Active Symbicort 160-4.5 mcg/actuation inhale 2 puffs by inhalation route 2 times per day in the morning and evening Jul, Active Pantoprazole Sodium 40 MG Orally Once a day 1 tablet 24h Not- Taking Clonidine HCl 0.2 MG Orally Twice a day 1 tablet 12h 30 days Not- Taking Isosorbide Mononitrate ER 30 MG TAKE ONE TABLET BY MOUTH IN THE MORNING 90 Active Ferrous Sulfate 325 (65 Fe) MG Orally Once a day 2 tablets 24h Jun, Active Vitamin C 500 MG Active Primidone 50 mg Orally bid for 10 days then 2 bid 1 tablet May, Active Aricept 23 MG Orally Once a day 1 tablet 24h 90 Not-Taking PredniSONE 10 mg Orally Once a day at noon 6 tablets (60 mg) Active Ipratropium-Albuterol 0.5-2.5 (3) MG/3ML Inhalation Four times a day 3 ml 6h Active Singulair 10 MG Orally Once a day 1 tablet in the evening 24h Active Albuterol Sulfate 1.25 mg/3 mL inhale 3 milliliters via nebulizer by Inhalation route 4 times per day PRN as needed Dec, Active Proventil 17gm by inhalation route 4 times a day 2 puffs 6h Not- Taking Cetirizine HCl 10 MG Orally Once a day 1 tablet 24h Active Metoprolol Tartrate 25 mg take 1 tablet (25 mg) by oral route 2 times per day Sep, Active Oxygen Active RESULTS No Results PROCEDURES No Known [...]
--- OUTSIDE RECORDS SUMMARY | 2017-12-30 00:56 | XMS REPORT | Continuity of Care Document ---
Author Author Formerly [facility] Address Unknown Phone Unavailable Allergies Active Description [...] Lipitor Drug Allergy N/A N/A 03/12/2013 Yes Penicillins [id number] Drug Allergy Unknown N/A 07/08/2013 Yes Sulfa (Sulfonamide Antibiotics) [id number] Drug Allergy Unknown N/A 2013 Yes sumatriptan [id number] Drug Allergy Unknown N/A 07/08/2013 Yes Lipitor 20 mg tablet Drug Allergy N/A N/A 01/01/2014 Yes tramadol [id number] Drug Allergy Mild N/A 12/29/2017 Medications There is no data. Problems Date Dx Coded Attending Type Code Diagnosis Diagnosed By 06/13/2008 CASEY SIMPSON APRN 300.00 ANXIETY STATE UNSPECIFIED 06/13/2008 CASEY SIMPSON APRN 401.1 BENIGN ESSENTIAL HYPERTENSION 06/13/2008 CASEY SIMPSON APRN 729.5 Pain In Limb 06/13/2008 CASEY SIMPSON APRN 782.1 Rash And Other Nonspecific Skin Eruption 06/13/2008 CASEY SIMPSON APRN 300.00 ANXIETY STATE UNSPECIFIED 06/13/2008 TATIANA USER INTERFACE ARTIST, CASEY S 401.1 BENIGN ESSENTIAL HYPERTENSION 06/13/2008 TATIANA USER INTERFACE ARTIST, CASEY S 729.5 Pain In Limb 06/13/2008 TATIANA USER INTERFACE ARTIST, CASEY S 782.1 Rash And Other Nonspecific [...] S 401.1 ESSENTIAL HYPERTENSION BENIGN 06/13/2008 TATIANA USER INTERFACE ARTIST, CASEY S 729.5 Pain In Limb 06/13/2008 TATIANA USER INTERFACE ARTIST, CASEY S 782.1 Rash And Other Nonspecific Skin Eruption 06/13/2008 TATIANA USER INTERFACE ARTIST, CASEY S 300.00 anxiety 06/13/2008 TATIANA USER INTERFACE ARTIST, CASEY S 401.1 ESSENTIAL HYPERTENSION BENIGN 06/13/2008 TATIANA USER INTERFACE ARTIST, CASEY S 729.5 Pain In Limb 06/13/2008 TATIANA USER INTERFACE ARTIST, CASEY S 782.1 Rash And Other Nonspecific Skin Eruption 06/13/2008 THELMA USER INTERFACE ARTIST, BLAS A 300.00 anxiety 06/13/2008 THELMA BENTLEYN, BLAS A 401.1 ESSENTIAL HYPERTENSION BENIGN 06/13/2008 THELMA AQUINO, BLAS A 729.5 Pain In Limb 06/13/2008 THELMA BENTLEYN, BLAS A 782.1 Rash And Other Nonspecific Skin Eruption 06/13/2008 TATIANA USER INTERFACE ARTIST, CASEY S 300.00 anxiety 06/13/2008 TATIANA USER INTERFACE ARTIST, CASEY S 401.1 ESSENTIAL HYPERTENSION BENIGN 06/13/2008 TATIANA USER INTERFACE ARTIST, CASEY S 729.5 Pain In Limb 06/13/2008 TATIANA USER INTERFACE ARTIST, CASEY S 782.1 Rash And Other Nonspecific [...] S 729.5 Pain In Limb 06/13/2008 TATIANA USER INTERFACE ARTIST, CASEY S 782.1 Rash And Other Nonspecific Skin Eruption 06/13/2008 TATIANA USER INTERFACE ARTIST, CASEY S 300.00 anxiety 06/13/2008 TATIANA USER INTERFACE ARTIST, CASEY S 401.1 ESSENTIAL HYPERTENSION BENIGN 06/13/2008 TATIANA USER INTERFACE ARTIST, CASEY S 729.5 Pain In Limb 06/13/2008 TATIANA USER INTERFACE ARTIST, CASEY S 782.1 Rash And Other Nonspecific Skin Eruption 06/13/2008 TATIANA USER INTERFACE ARTIST, CASEY S 300.00 anxiety 06/13/2008 TATIANA USER INTERFACE ARTIST, CASEY S 401.1 ESSENTIAL HYPERTENSION BENIGN 06/13/2008 TATIANA AQUINO, CASEY S 729.5 Pain In Limb 06/13/2008 TATIANA AQUINO, CASEY S 782.1 Rash And Other Nonspecific Skin Eruption 06/13/2008 THELMA USER INTERFACE ARTIST, BLAS A 300.00 anxiety 06/13/2008 THELMA USER INTERFACE ARTIST, BLAS A 401.1 ESSENTIAL HYPERTENSION BENIGN 06/13/2008 THELMA USER INTERFACE ARTIST, BLAS A 729.5 Pain In Limb 06/13/2008 THELMA USER INTERFACE ARTIST, BLAS A 782.1 Rash And Other Nonspecific [...] APRNNDA S 785.0 Tachycardia Unspecified 06/24/2008 TATIANA USER INTERFACE ARTIST, CASEY S V76.19 Other Screening Breast Examination 06/24/2008 TATIANA USER INTERFACE ARTIST, CASEY S 785.0 Tachycardia Unspecified 06/24/2008 TATIANA USER INTERFACE ARTIST, CASEY S V76.19 Other Screening Breast Examination 06/24/2008 THELMA USER INTERFACE ARTIST, BLAS A 785.0 Tachycardia Unspecified 06/24/2008 THELMA USER INTERFACE ARTIST, BLAS A V76.19 Other Screening Breast Examination 06/24/2008 TATIANA USER INTERFACE ARTIST, CASEY S 785.0 Tachycardia Unspecified 06/24/2008 TATIANA USER INTERFACE ARTIST, CASEY S V76.19 Other Screening Breast Examination 06/24/2008 THELMA USER INTERFACE ARTIST, BLAS A 785.0 Tachycardia Unspecified 06/24/2008 THELMA USER INTERFACE ARTIST, BLAS A V76.19 Other Screening Breast Examination 06/24/2008 SHANA YORK MD 785.0 Tachycardia Unspecified 06/24/2008 SHANA YORK MD V76.19 Other Screening Breast Examination 06/24/2008 TATIANA USER INTERFACE ARTIST, CASEY S 785.0 Tachycardia Unspecified 06/24/2008 TATIANA USER INTERFACE ARTIST, CASEY S V76.19 Other Screening Breast Examination 06/24/2008 TATIANA USER INTERFACE ARTIST, CASEY S 785.0 Tachycardia Unspecified 06/24/2008 TATIANA USER INTERFACE ARTIST, CASEY S V76.19 Other Screening Breast Examination 06/24/2008 TATIANA USER INTERFACE ARTIST, CASEY S 785.0 Tachycardia Unspecified 06/24/2008 TATIANA USER INTERFACE ARTIST, CASEY S V76.19 Other Screening Breast Examination 06/24/2008 THELMA USER INTERFACE ARTIST, BLAS A 785.0 Tachycardia Unspecified 06/24/2008 THELMA USER INTERFACE ARTIST, BLAS A V76.19 Other Screening Breast Examination 06/24/2008 ОЛЕГ KWON MD N 785.0 Tachycardia Unspecified 06/24/2008 ОЛЕГ KWON MD N V76.19 Other Screening Breast Examination 08/04/2008 TATIANA USER INTERFACE ARTIST, CASEY S 496 Chronic Airway Obstruction Not Elsewhere Classified 08/04/2008 TATIANA USER INTERFACE ARTIST, CASEY S 496 Chronic Airway Obstruction Not Elsewhere Classified 08/04/2008 496 Chronic Airway Obstruction Not Elsewhere Classified 08/04/2008 496 Chronic Airway Obstruction Not Elsewhere Classified 08/04/2008 496 Chronic Airway Obstruction Not Elsewhere Classified 08/04/2008 496 Chronic Airway Obstruction Not Elsewhere Classified 08/04/2008 MURRAY PEREZ, DANYA Malloy 496 Chronic Airway Obstruction Not Elsewhere Classified 08/04/2008 TATIANA USER INTERFACE ARTIST, CASEY S 496 Chronic Airway Obstruction Not Elsewhere Classified 08/04/2008 TATIANA USER INTERFACE ARTIST, CASEY S 496 Chronic Airway Obstruction Not Elsewhere Classified 08/04/2008 THELMA USER INTERFACE ARTIST, BLAS A 496 Chronic Airway Obstruction Not Elsewhere Classified 08/04/2008 TATIANA USER INTERFACE ARTIST, CASEY S 496 Chronic Airway Obstruction Not Elsewhere Classified 08/04/2008 THELMA USER INTERFACE ARTIST BLAS A 496 Chronic Airway Obstruction Not Elsewhere Classified 08/04/2008 SHANA YORK MD 496 Chronic Airway Obstruction Not Elsewhere Classified 08/04/2008 TATIANA USER INTERFACE ARTIST, CASEY S 496 Chronic Airway Obstruction Not Elsewhere Classified 08/04/2008 TATIANA USER INTERFACE ARTIST, CASEY S 496 Chronic Airway Obstruction Not Elsewhere Classified 08/04/2008 TATIANA USER INTERFACE ARTIST, CASEY S 496 Chronic Airway Obstruction Not Elsewhere Classified 08/04/2008 THELMA USER INTERFACE ARTIST BLAS A 496 Chronic Airway Obstruction Not Elsewhere Classified 08/04/2008 ОЛЕГ KWON MD 496 Chronic Airway Obstruction Not Elsewhere Classified 09/01/2008 TATIANA USER INTERFACE ARTIST, CASEY S 401.9 Hypertension, Unspecified Essential 09/01/2008 TATIANA USER INTERFACE ARTIST, CASEY S 401.9 Hypertension, Unspecified Essential 09/01/2008 401.9 Hypertension, Unspecified Essential 09/01/2008 401.9 Hypertension, Unspecified Essential 09/01/2008 401.9 Hypertension, Unspecified Essential 09/01/2008 401.9 Hypertension, Unspecified Essential 09/01/2008 MURRAY PEREZ, DANYA Malloy 401.9 Hypertension, Unspecified Essential 09/01/2008 TATIANA USER INTERFACE ARTIST, CASEY S 401.9 Hypertension, Unspecified Essential 09/01/2008 TATIANA USER INTERFACE ARTIST, CASEY S 401.9 Hypertension, Unspecified Essential 09/01/2008 THELMADORI BENTLEYN BLAS A 401.9 Hypertension, Unspecified Essential 09/01/2008 TATIANA USER INTERFACE ARTIST, CASEY S 401.9 Hypertension, Unspecified Essential 09/01/2008 THELMA USER INTERFACE ARTIST, BLAS A 401.9 Hypertension, Unspecified Essential 09/01/2008 SHANA YORK MD 401.9 Hypertension, Unspecified Essential 09/01/2008 TATIANA USER INTERFACE ARTIST, CASEY S 401.9 Hypertension, Unspecified Essential 09/01/2008 TATIANA USER INTERFACE ARTIST, CASEY S 401.9 Hypertension, Unspecified Essential 09/01/2008 TATIANA USER INTERFACE ARTIST, CASEY S 401.9 Hypertension, Unspecified Essential 09/01/2008 THELMA USER INTERFACE ARTIST, BLAS A 401.9 Hypertension, Unspecified Essential 09/01/2008 CHER PEREZ, ОЛЕГ Hamilton 401.9 Hypertension, Unspecified Essential 05/11/2009 TATIANA USER INTERFACE ARTIST, CASEY S 719.41 Pain In Joint, Shoulder Region 05/11/2009 TATIANA USER INTERFACE ARTIST, CASEY S 719.41 Pain In Joint, Shoulder Region 05/11/2009 719.41 Pain In Joint , Shoulder Region 05/11/2009 719.41 Pain In Joint , Shoulder Region 05/11/2009 719.41 Pain In Joint , Shoulder Region 05/11/2009 719.41 Pain In Joint , Shoulder Region 05/11/2009 MURRAY PEREZ, DANYA Malloy 719.41 Pain In Joint, Shoulder Region 05/11/2009 TATIANA USER INTERFACE ARTIST, CASEY S 719.41 Pain In Joint, Shoulder Region 05/11/2009 TATIANA USER INTERFACE ARTIST, CASEY S 719.41 Pain In Joint, Shoulder Region 05/11/2009 THELMA BENTLEYN, BLAS A 719.41 Pain In Joint, Shoulder Region 05/11/2009 TATIANA USER INTERFACE ARTIST, CASEY S 719.41 Pain In Joint, Shoulder Region 05/11/2009 THELMA USER INTERFACE ARTIST, BLAS A 719.41 Pain In Joint, Shoulder Region 05/11/2009 SHANA YORK MD 719.41 Pain In Joint, Shoulder Region 05/11/2009 TATIANA USER INTERFACE ARTIST, CASEY S 719.41 Pain In Joint, Shoulder Region 05/11/2009 TATIANA USER INTERFACE ARTIST, CASEY S 719.41 Pain In Joint, Shoulder Region 05/11/2009 TATIAAN AQUINO, CASEY S 719.41 Pain In Joint, Shoulder Region 05/11/2009 THELMA USER INTERFACE ARTIST, BLAS A 719.41 Pain In Joint, Shoulder [...] S 461.0 Acute Maxillary Sinusitis 06/16/2009 THELMA USER INTERFACE ARTIST, BLAS A 461.0 Acute Maxillary Sinusitis 06/16/2009 TATIANA AQUINO, CASEY S 461.0 Acute Maxillary Sinusitis 06/16/2009 THELMA USER INTERFACE ARTIST, BLAS A 461.0 Acute Maxillary Sinusitis 06/16/2009 SHANA YORK MD 461.0 Acute Maxillary Sinusitis 06/16/2009 TATIANA AQUINO, CASEY S 461.0 Acute Maxillary Sinusitis 06/16/2009 TATIANA AQUINO, CASEY S 461.0 Acute Maxillary Sinusitis 06/16/2009 TATIANA AQUINO, CASEY S 461.0 Acute Maxillary Sinusitis 06/16/2009 THELMA USER INTERFACE ARTIST, BLAS A 461.0 Acute Maxillary Sinusitis 06/16/2009 [...] 625.6 Stress Incontinence, Female 09/01/2009 THELMA APRN, BLAS A 780.93 Memory Loss 09/01/2009 THELMA APRN, BLAS A V76.11 Screening Mammogram For High-risk Patient 09/01/2009 TATIANA AQUINO, CASEY S 625.6 Stress Incontinence, Female 09/01/2009 TATIANA AQUINO, CASEY S 780.93 Memory Loss 09/01/2009 TATIANA AQUINO, CASEY S V76.11 Screening Mammogram For High-risk Patient 09/01/2009 THELMA USER INTERFACE ARTIST, BLAS A 625.6 Stress Incontinence, Female 09/01/2009 THELMA USER INTERFACE ARTIST, BLAS A 780.93 Memory Loss 09/01/2009 THELMA [...] Screening Mammogram For High-risk Patient 11/17/2009 TATIANA USER INTERFACE ARTIST, CASEY S 786.09 Respiratory Abnormalities, Other 11/17/2009 TATIANA USER INTERFACE ARTIST, CASEY S 786.50 chest pain or discomfort reported as pain 11/17/2009 TATIANA USER INTERFACE ARTIST, CASEY S 786.09 Respiratory Abnormalities, Other 11/17/2009 TATIANA USER INTERFACE ARTIST, CASEY S 786.50 chest pain or discomfort [...] or discomfort reported as pain 11/17/2009 TATIANA USER INTERFACE ARTIST, CASEY S 786.09 Respiratory Abnormalities, Other 11/17/2009 TATIANA USER INTERFACE ARTIST, CASEY S 786.50 chest pain or discomfort reported as pain 11/17/2009 TATIANA USER INTERFACE ARTIST, CASEY S 786.09 Respiratory Abnormalities, Other 11/17/2009 TATIANA USER INTERFACE ARTIST, CASEY S 786.50 chest pain or discomfort reported as pain 11/17/2009 THELMA USER INTERFACE ARTIST, BLAS A 786.09 Respiratory Abnormalities, Other 11/17/2009 THELMA USER INTERFACE ARTIST, BLAS A 786.50 chest pain or discomfort reported as pain 11/17/2009 TATIANA USER INTERFACE ARTIST, CASEY S 786.09 Respiratory Abnormalities, Other 11/17/2009 TATIANA USER INTERFACE ARTIST, CASEY S 786.50 chest pain or discomfort reported as pain 11/17/2009 THELMA USER INTERFACE ARTIST, BLAS A 786.09 Respiratory Abnormalities, Other 11/17/2009 THELMA USER INTERFACE ARTIST, BLAS A 786.50 chest pain or discomfort reported as pain 11/17/2009 SHANA YORK MD 786.09 Respiratory Abnormalities, Other 11/17/2009 CHELA PEREZ, SHANA 786.50 chest pain or discomfort reported as pain 11/17/2009 TATIANA USER INTERFACE ARTIST, CASEY S 786.09 Respiratory Abnormalities, Other 11/17/2009 TATIANA USER INTERFACE ARTIST, CASEY S 786.50 CHEST PAIN OR DISCOMFORT REPORTED PAIN 11/17/2009 TATIANA USER INTERFACE ARTIST, CASEY S 786.09 Respiratory Abnormalities, Other 11/17/2009 TATIANA USER INTERFACE ARTIST, CASEY S 786.50 CHEST PAIN OR DISCOMFORT REPORTED PAIN 11/17/2009 TATIANA USER INTERFACE ARTIST, CASEY S 786.09 Respiratory Abnormalities, Other 11/17/2009 TATIANA USER INTERFACE ARTIST, CASEY S 786.50 CHEST PAIN OR DISCOMFORT REPORTED PAIN 11/17/2009 THELMA USER INTERFACE ARTIST, BLAS A 786.09 Respiratory Abnormalities, Other 11/17/2009 THELMA USER INTERFACE ARTIST, BLAS A 786.50 CHEST PAIN OR DISCOMFORT REPORTED PAIN 11/17/2009 CHER PEREZ, ОЛЕГ N 786.09 Respiratory Abnormalities, Other 11/17/2009 CHER PEREZ, ОЛЕГ N 786.50 CHEST PAIN OR DISCOMFORT REPORTED PAIN 07/06/2010 TATIANA USER INTERFACE ARTIST, CASEY S 466.0 Acute Bronchitis 07/06/2010 TATIANA USER INTERFACE ARTIST, CASEY S 466.0 Acute Bronchitis 07/06/2010 466.0 Acute Bronchitis 07/06/2010 466.0 Acute Bronchitis 07/06/2010 466.0 Acute Bronchitis 07/06/2010 466.0 Acute Bronchitis 07/06/2010 MURRAY PEREZ, DANYA M 466.0 Acute Bronchitis 07/06/2010 TATIANA USER INTERFACE ARTIST, CASEY S 466.0 Acute Bronchitis 07/06/2010 TATIANA USER INTERFACE ARTIST, CASEY S 466.0 Acute Bronchitis 07/06/2010 THELMA USER INTERFACE ARTIST, BLAS A 466.0 Acute Bronchitis 07/06/2010 TATIANA USER INTERFACE ARTIST, CASEY S 466.0 Acute Bronchitis 07/06/2010 THELMA USER INTERFACE ARTIST, BLAS A 466.0 Acute Bronchitis 07/06/2010 SHANA YORK MD 466.0 Acute Bronchitis 07/06/2010 TATIANA USER INTERFACE ARTIST, CASEY S 466.0 Acute Bronchitis 07/06/2010 TATIANA USER INTERFACE ARTIST, CASEY S 466.0 Acute Bronchitis 07/06/2010 TATIANA AQUINO, CASEY S 466.0 Acute Bronchitis 07/06/2010 THELMA AQUINO, BLAS A 466.0 Acute Bronchitis 07/06/2010 CHER PEREZ, [...] 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 12/09/2010 TATIANA USER INTERFACE ARTIST, CASEY S 300.02 AN GEN ANXIETY 12/09/2010 [...] NOS 03/30/2012 Ot 414.01 CORONARY ATHEROSCLEROSIS OF CIRCLE CORON 03/30/2012 Ot 786.09 RESPIRATORY ABNORM NEC [...] weight loss (___ lbs) [reported] 07/30/2012 ALICE SIMPSNO APRNA S 783.21 RECENT WEIGHT LOSS (___ LBS) [REPORTED] 07/30/2012 ALICE SIMPSON APRNA S 783.21 RECENT WEIGHT LOSS (___ LBS) [REPORTED] 07/30/2012 CASEY SIMPSON APRN S 783.21 RECENT WEIGHT LOSS [...] A 781.0 ABNORMAL INVOLUNTARY MOVEMENTS 03/12/2013 THELMA USER INTERFACE ARTIST, BLAS A V76.12 MAMMOGRAM SCREENING 03/12/2013 ОЛЕГ KWON MD N 781.0 ABNORMAL INVOLUNTARY MOVEMENTS 03/12/2013 ОЛЕГ KWON MD N V76.12 MAMMOGRAM SCREENING 03/26/2013 TATIANA AQUINO, CASEY S 215.2 OTHER BENIGN NEOPLASM OF CONNECTIVE AND OTHER SOFT TISSUE OF UPPER LIMB INCLUDING SHOULDER 03/26/2013 TATIANA AQUINO CASEY S 333.1 ESSENTIAL AND OTHER SPECIFIED FORMS OF TREMOR 03/26/2013 THELMA USER INTERFACE ARTIST, BLAS A 215.2 OTHER BENIGN NEOPLASM OF [...] UPPER LIMB INCLUDING SHOULDER 03/26/2013 THELMAJoy AQUINO BALS A 333.1 ESSENTIAL AND OTHER SPECIFIED FORMS OF TREMOR 03/26/2013 SHANA YORK MD 215.2 OTHER BENIGN NEOPLASM OF CONNECTIVE AND OTHER SOFT TISSUE OF UPPER LIMB INCLUDING SHOULDER 03/26/2013 SHANA YORK MD 333.1 ESSENTIAL AND OTHER SPECIFIED FORMS OF TREMOR 03/26/2013 TATIANAROBERTO CARLOS AQUINO, CASEY S 215.2 OTHER BENIGN NEOPLASM OF CONNECTIVE AND OTHER SOFT TISSUE OF UPPER LIMB INCLUDING SHOULDER 03/26/2013 TATIANA USER INTERFACE ARTIST, CASEY S 333.1 ESSENTIAL AND OTHER SPECIFIED FORMS OF TREMOR 03/26/2013 TATIANA USER INTERFACE ARTIST, CASEY S 215.2 OTHER BENIGN NEOPLASM OF [...] COUNSELING 05/22/2013 THELMAMARIVEL Hamilton APRNIDI A V72.31 BUSINESS OBJECTS REPORT DEVELOPER EXAM, ROUTINE 05/22/2013 THELMAMARIVEL Hamilton APRNIDI A V76.10 BREAST CANCER SCREENING 05/22/2013 MARIVEL RENEE APRNIDI A V82.81 SPECIAL SCREENING FOR OSTEOPOROSIS 05/22/2013 DUKE SIMPSON APRNNDA S V65.42 COUNSELING - SMOKING CESSATION 05/22/2013 DUKE SIMPSON APRNNDA S V65.49 OTHER SPECIFIED COUNSELING 05/22/2013 DUKE SIMPSON APRNNDA S V72.31 BUSINESS OBJECTS REPORT DEVELOPER EXAM, ROUTINE 05/22/2013 DUKE SIMPSON APRNNDA S V76.10 BREAST CANCER SCREENING 05/22/2013 DUKE SIMPSON APRNNDA S V82.81 SPECIAL SCREENING FOR OSTEOPOROSIS 05/22/2013 THELMAMARIVEL MEADOWS APRNIDI A V65.42 COUNSELING - SMOKING CESSATION 05/22/2013 THELMAJoy AQUINO BLAS A V65.49 OTHER SPECIFIED COUNSELING 05/22/2013 THELMAMARIVEL Hamilton APRNIDI A V72.31 BUSINESS OBJECTS REPORT DEVELOPER EXAM, ROUTINE 05/22/2013 THELMAMARIVEL Hamilton APRNIDI A V76.10 BREAST CANCER SCREENING 05/22/2013 THELMA USER INTERFACE ARTIST, BLAS A V82.81 SPECIAL SCREENING FOR OSTEOPOROSIS 05/22/2013 SHANA YORK MD V65.42 COUNSELING - SMOKING CESSATION 05/22/2013 SHNAA YORK MD V65.49 OTHER SPECIFIED COUNSELING 05/22/2013 SHANA YORK MD V72.31 BUSINESS OBJECTS REPORT DEVELOPER EXAM, ROUTINE 05/22/2013 SHANA YORK MD V76.10 BREAST CANCER SCREENING 05/22/2013 SHANA YORK MD V82.81 SPECIAL SCREENING FOR OSTEOPOROSIS 05/22/2013 TATIANA USER INTERFACE ARTIST, CASEY S V65.42 COUNSELING - SMOKING CESSATION 05/22/2013 TATIANA USER INTERFACE ARTIST, CASEY S V65.49 OTHER SPECIFIED COUNSELING 05/22/2013 TATIANA USER INTERFACE ARTIST, CASEY S V72.31 BUSINESS OBJECTS REPORT DEVELOPER EXAM, ROUTINE 05/22/2013 TATIANA USER INTERFACE ARTIST, CASEY S V76.10 BREAST CANCER SCREENING 05/22/2013 TATIANA USER INTERFACE ARTIST, CASEY S V82.81 SPECIAL SCREENING FOR OSTEOPOROSIS 05/22/2013 TATIANA USER INTERFACE ARTIST, CASEY S V65.42 COUNSELING - SMOKING CESSATION 05/22/2013 TATIANA USER INTERFACE ARTIST, CASEY S V65.49 OTHER SPECIFIED COUNSELING 05/22/2013 TATIANA USER INTERFACE ARTIST, CASEY S V72.31 BUSINESS OBJECTS REPORT DEVELOPER EXAM, ROUTINE 05/22/2013 TATIANA USER INTERFACE ARTIST, CAESY S V76.10 BREAST CANCER SCREENING 05/22/2013 TATIANA USER INTERFACE ARTIST, CASEY S V82.81 SPECIAL SCREENING FOR OSTEOPOROSIS 05/22/2013 TATIANA USER INTERFACE ARTIST, CASEY S V65.42 COUNSELING - SMOKING CESSATION 05/22/2013 TATIANA USER INTERFACE ARTIST, CASEY S V65.49 OTHER SPECIFIED COUNSELING 05/22/2013 TATIANA USER INTERFACE ARTIST, CASEY S V72.31 BUSINESS OBJECTS REPORT DEVELOPER EXAM, ROUTINE 05/22/2013 TATIANA USER INTERFACE ARTIST, CASEY S V76.10 BREAST CANCER SCREENING 05/22/2013 TATIANA USER INTERFACE ARTIST, CASEY S V82.81 SPECIAL SCREENING FOR OSTEOPOROSIS 05/22/2013 THELMA USER INTERFACE ARTIST, BLAS A V65.42 COUNSELING - SMOKING CESSATION 05/22/2013 THELMA KENIA BLAS A V65.49 OTHER SPECIFIED COUNSELING 05/22/2013 THELMA USER INTERFACE ARTIST BLAS A V72.31 BUSINESS OBJECTS REPORT DEVELOPER EXAM, ROUTINE 05/22/2013 BLAS RENEE APRN A V76.10 BREAST CANCER SCREENING 05/22/2013 BLAS RENEE APRN A V82.81 SPECIAL SCREENING FOR OSTEOPOROSIS 05/22/2013 ОЛЕГ KWON MD V65.42 COUNSELING - SMOKING CESSATION 05/22/2013 ОЛЕГ KWON MD V65.49 OTHER SPECIFIED COUNSELING 05/22/2013 ОЛЕГ KWON MD V72.31 BUSINESS OBJECTS REPORT DEVELOPER EXAM, ROUTINE 05/22/2013 ОЛЕГ KWON MD V76.10 [...] SHANA Grossman Ot 414.01 CORONARY ATHEROSCLEROSIS OF CIRCLE CORON 07/09/2013 CHELA PEREZ, SHANA Grossman Ot [...] SIMPSON APRNNDA S 414.00 CAD 07/16/2013 TATIANA USER INTERFACE ARTIST, CASEY S 496 COPD 07/16/2013 TATIANA AQUINO CASEY S 414.00 CAD 07/16/2013 DUKE SIMPSON APRNNDA S 496 COPD 07/16/2013 THELMA USER INTERFACE ARTIST, BLAS A 414.00 CAD 07/16/2013 THELMA USER INTERFACE ARTIST, BLAS A 496 COPD 07/16/2013 CHER PEREZ, [...] 03/24/2014 SHANA OHARA MD Ot 786.2 03/24/2014 LEANN GILL DO Ot 305.1 03/24/2014 [...] UNCERTAIN BEHAVIOR OF SKIN 07/07/2014 BLAS RENEE USER INTERFACE ARTIST Ot 733.00 07/07/2014 BLAS RENEE USER INTERFACE ARTIST Ot 733.90 07/07/2014 SHANA OHARA MD Ot [...] ARI WRIGHT Ot V81.5 03/16/2015 BLAS RENEE USER INTERFACE ARTIST Ot 733.00 03/16/2015 BLAS RENEE USER INTERFACE ARTIST Ot 733.90 03/16/2015 SHANA OHARA MD Ot [...] 03/16/2015 LEIGH TORRES MD Ot Z79.899 OTHER HALF-WAY (CURRENT) DRUG THERAPY 03/16/2015 LEIGH TORRES MD Ot Z99.81 DEPENDENCE ON SUPPLEMENTAL OXYGEN 03/16/2015 Ot V76.12 03/16/2015 Ot 401.9 03/16/2015 Ot 414.00 03/16/2015 Ot 786.09 03/16/2015 Ot 783.21 03/16/2015 Ot 786.50 03/16/2015 DANYA GAO MD Ot V72.84 03/16/2015 ARI WRIGHT Ot 783.21 03/16/2015 ARI WRIGHT Ot V81.5 03/16/2015 BLAS RENEE USER INTERFACE ARTIST Ot 733.00 03/16/2015 BLAS RENEE USER INTERFACE ARTIST Ot 733.90 03/16/2015 SHANA OHARA MD Ot 496 03/16/2015 MAYDA PEREZ, SHANA Zaldivar Ot 783.21 03/16/2015 MAYDA PEREZ, SHANA Zaldivar Ot 786.2 03/16/2015 Ot 272.4 03/16/2015 Ot 401.9 03/16/2015 Ot 414.00 03/16/2015 Ot 785.1 03/16/2015 Ot 786.09 03/16/2015 ROCIO ELIZALDE APRN Ot 305.1 03/16/2015 ROCIO LEIZALDE APRN Ot 486 03/16/2015 ROCIO ELIZALDE APRN [...] ARI WRIGHT Ot V81.5 04/26/2015 BLAS RENEE USER INTERFACE ARTIST Ot 733.00 04/26/2015 BLAS RENEE USER INTERFACE ARTIST Ot 733.90 04/26/2015 MAYDA PEREZ, SHANA Zaldivar Ot 496 04/26/2015 MAYDA PEREZ, SHNAA Zaldivar Ot 783.21 04/26/2015 MAYDA PEREZ, SHANA Zaldivar Ot 786.2 04/26/2015 Ot 272.4 04/26/2015 Ot 401.9 04/26/2015 Ot 414.00 04/26/2015 Ot 785.1 04/26/2015 Ot 786.09 04/26/2015 ROCIO ELIZALDE USER INTERFACE ARTIST Ot 305.1 04/26/2015 ROCIO ELIZALDE APRN Ot 486 04/26/2015 ROCIO ELIZALDE APRN Ot 496 06/04/2015 ROCIO ELIZALDE USER INTERFACE ARTIST Ot J44.9 06/04/2015 ROCIO ELIZALDE USER INTERFACE ARTIST Ot Z72.0 06/04/2015 ROCIO ELIZALDE USER INTERFACE ARTIST Ot J44.9 06/04/2015 ROCIO ELIZALDE USER INTERFACE ARTIST Ot Z72.0 10/28/2015 Ot V76.12 OTH SCREEN [...] V81.5 SCREEN FOR NEPHROPATHY 10/28/2015 BLAS RENEE USER INTERFACE ARTIST Ot 733.00 OSTEOPOROSIS NOS 10/28/2015 BLAS RENEE USER INTERFACE ARTIST Ot 733.90 BONE CARTILAGE DIS NOS 10/28/2015 [...] 786.09 RESPIRATORY ABNORM NEC 10/28/2015 ROCIO ELIZALDE USER INTERFACE ARTIST Ot 305.1 TOBACCO USE DISORDER 10/28/2015 ROCIO ELIZALDE USER INTERFACE ARTIST Ot 486 PNEUMONIA, ORGANISM NOS 10/28/2015 ROCIO ELIZALDE USER INTERFACE ARTIST Ot 496 CHR AIRWAY OBSTRUCT NEC 10/28/2015 ROCIO ELIZALDE USER INTERFACE ARTIST Ot J44.9 CHRONIC OBSTRUCTIVE PULMONARY DISEASE, U 10/28/2015 ROCIO ELIZALDE USER INTERFACE ARTIST Ot Z72.0 TOBACCO USE 10/28/2015 CASEY SIMPSON BUTCHER'S ASSISTANT Ot R10.32 LEFT LOWER QUADRANT PAIN 10/29/2015 [...] V81.5 SCREEN FOR NEPHROPATHY 10/29/2015 BLAS RENEE USER INTERFACE ARTIST Ot 733.00 OSTEOPOROSIS NOS 10/29/2015 BLAS RENEE USER INTERFACE ARTIST Ot 733.90 BONE CARTILAGE DIS NOS 10/29/2015 [...] Ot Z72.0 TOBACCO USE 10/29/2015 CASEY SIMPSON BUTCHER'S ASSISTANT Ot R10.32 LEFT LOWER QUADRANT PAIN 10/30/2015 ROCIO ELIZALDE APRN Ot J44.9 CHRONIC OBSTRUCTIVE PULMONARY DISEASE, U 10/30/2015 ROCIO ELIZALDE APRN Ot J44.9 CHRONIC OBSTRUCTIVE PULMONARY DISEASE, U 10/30/2015 LAM ELIZALDEINE Lloyd USER INTERFACE ARTIST Ot R06.09 OTHER FORMS OF DYSPNEA 10/30/2015 LAM ELIZALDEINE Lloyd USER INTERFACE ARTIST Ot R09.02 HYPOXEMIA 10/30/2015 LAM ELIZALDEINE Lloyd USER INTERFACE ARTIST Ot Z72.0 TOBACCO USE 11/04/2015 FIDE, ROCIO Lloyd USER INTERFACE ARTIST Ot J44.9 CHRONIC OBSTRUCTIVE PULMONARY DISEASE, U 11/04/2015 FIDE, ROCIO Lloyd USER INTERFACE ARTIST Ot R06.09 OTHER FORMS OF DYSPNEA 11/04/2015 FIDELAM BLUNTINE Lloyd USER INTERFACE ARTIST Ot R09.02 HYPOXEMIA 11/04/2015 FIDELAM BLUNTINE Lloyd USER INTERFACE ARTIST Ot Z72.0 TOBACCO USE 11/25/2015 ROCIO ELIZALDE USER INTERFACE ARTIST Ot J44.9 CHRONIC OBSTRUCTIVE PULMONARY DISEASE, U 11/25/2015 LAM ELIZALDEINE Lloyd USER INTERFACE ARTIST Ot R06.00 DYSPNEA, UNSPECIFIED 12/04/2015 ROCIO ELIZALDE USER INTERFACE ARTIST Ot J44.9 CHRONIC OBSTRUCTIVE PULMONARY DISEASE, U 12/04/2015 FIDE, ROCIO Lloyd USER INTERFACE ARTIST Ot R06.09 OTHER FORMS OF DYSPNEA 12/04/2015 FIDELAM BLUNTINE Lloyd USER INTERFACE ARTIST Ot R09.02 HYPOXEMIA 12/04/2015 LAM ELIZALDEINE Lloyd USER INTERFACE ARTIST Ot Z72.0 TOBACCO USE 12/15/2015 FIDE, ROCIO Desai USER INTERFACE ARTIST Ot J44.9 CHRONIC OBSTRUCTIVE PULMONARY DISEASE, U 12/15/2015 FIDELAM BLUNTINE Lloyd USER INTERFACE ARTIST Ot R06.00 DYSPNEA, UNSPECIFIED 01/29/2016 ROCIO ELIZALDE USER INTERFACE ARTIST Ot J44.9 CHRONIC OBSTRUCTIVE PULMONARY DISEASE, U 01/29/2016 ROCIO ELIZALDE USER INTERFACE ARTIST Ot R06.02 SHORTNESS OF BREATH 01/29/2016 ROCIO ELIZALDE Lloyd USER INTERFACE ARTIST Ot R09.02 HYPOXEMIA 01/29/2016 Ot E78.2 MIXED HYPERLIPIDEMIA 01/29/2016 Ot I10 ESSENTIAL ( PRIMARY) HYPERTENSION 01/29/2016 Ot 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 01/29/2016 Ot I65.23 OCCLUSION AND STENOSIS OF BILATERAL DAVIS 01/29/2016 Ot J44.9 CHRONIC OBSTRUCTIVE PULMONARY DISEASE, U 01/29/2016 Ot R07.9 CHEST PAIN, UNSPECIFIED 02/18/2016 Ot E78.2 MIXED HYPERLIPIDEMIA 02/18/2016 Ot I10 ESSENTIAL ( PRIMARY) HYPERTENSION 02/18/2016 Ot 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 02/18/2016 Ot I65.23 OCCLUSION AND STENOSIS [...] MD Ot 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 02/25/2016 JORGE TORRES MD Ot I65.23 OCCLUSION AND STENOSIS OF BILATERAL DAVIS 02/25/2016 JORGE TORRES MD Ot J44.9 CHRONIC OBSTRUCTIVE PULMONARY DISEASE, U 03/22/2016 ROCIO ELIZALDE APRN Ot J44.9 CHRONIC OBSTRUCTIVE PULMONARY DISEASE, U 03/22/2016 ROCIO ELIZALDE APRN Ot R09.02 HYPOXEMIA 04/14/2016 RCOIO ELIZALDE APRN Ot J44.9 CHRONIC OBSTRUCTIVE PULMONARY [...] V81.5 SCREEN FOR NEPHROPATHY 05/20/2016 BLAS RENEE USER INTERFACE ARTIST Ot 733.00 OSTEOPOROSIS NOS 05/20/2016 BLAS RENEE USER INTERFACE ARTIST Ot 733.90 BONE CARTILAGE DIS NOS 05/20/2016 [...] CHR AIRWAY OBSTRUCT NEC 05/20/2016 ROCIO ELIZALDE USER INTERFACE ARTIST Ot J44.9 CHRONIC OBSTRUCTIVE PULMONARY DISEASE, U 05/20/2016 ROCIO ELIZALDE APRN Ot Z72.0 TOBACCO USE 05/20/2016 CASEY SIMPSON Ot R10.32 LEFT LOWER QUADRANT PAIN 05/20/2016 ROCIO ELIZALDE USER INTERFACE ARTIST Ot J44.9 CHRONIC OBSTRUCTIVE PULMONARY DISEASE, U 05/20/2016 ROCIO ELIZALDE APRN Ot R06.09 OTHER FORMS OF DYSPNEA 05/20/2016 ROCIO ELIZALDE APRN Ot R09.02 HYPOXEMIA 05/20/2016 ROCIO ELIZALDE USER INTERFACE ARTIST Ot Z72.0 TOBACCO USE 05/20/2016 ROCIO ELIZALDE USER INTERFACE ARTIST Ot J44.9 CHRONIC OBSTRUCTIVE PULMONARY DISEASE, U 05/20/2016 ROCIO ELIZALDE USER INTERFACE ARTIST Ot R06.00 DYSPNEA, UNSPECIFIED 05/20/2016 ROCIO ELIZALDE [...] MD Ot 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 05/20/2016 JORGE TORRES MD Ot I65.23 OCCLUSION AND STENOSIS OF BILATERAL DAVIS 05/20/2016 JORGE TORRES MD Ot J44.9 CHRONIC OBSTRUCTIVE PULMONARY DISEASE, U 05/20/2016 Ot E78.2 MIXED HYPERLIPIDEMIA 05/20/2016 Ot I10 ESSENTIAL ( PRIMARY) HYPERTENSION 05/20/2016 Ot 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 05/20/2016 Ot I65.23 OCCLUSION AND STENOSIS [...] PULMONARY DISEASE, U 05/24/2016 FIDE ROCIO Lloyd USER INTERFACE ARTIST Ot R06.02 SHORTNESS OF BREATH 05/24/2016 FIDE, ROCIO Lloyd USER INTERFACE ARTIST Ot Z72.0 TOBACCO USE 05/26/2016 TATIANADUKECASEY BUTCHER'S ASSISTANT Ot Z12.31 ENCNTR SCREEN MAMMOGRAM FOR MALIGNANT NE 05/28/2016 FIDE ROCIO Desai USER INTERFACE ARTIST Ot J44.9 CHRONIC OBSTRUCTIVE PULMONARY DISEASE, U 05/28/2016 FIDE ROCIO Lloyd USER INTERFACE ARTIST Ot R09.02 HYPOXEMIA 06/14/2016 CASEY SIMPSON BUTCHER'S ASSISTANT Ot Z12.31 ENCNTR SCREEN MAMMOGRAM FOR MALIGNANT [...] HISTORY OF COLONIC POLYPS 08/08/2016 ROCIO ELIZALDE USER INTERFACE ARTIST Ot J44.9 CHRONIC OBSTRUCTIVE PULMONARY DISEASE, U 08/08/2016 ROCIO ELIZALDE USER INTERFACE ARTIST Ot R06.00 DYSPNEA, UNSPECIFIED 08/08/2016 ROCIO ELIZALDE USER INTERFACE ARTIST Ot R09.02 HYPOXEMIA 08/08/2016 ROCIO ELIZALDE USER INTERFACE ARTIST Ot Z72.0 TOBACCO USE 08/16/2016 MURRAY PEREZ, [...] LEFT UPPER QUADRANT PAIN 09/27/2016 ROCIO ELIZALDE USER INTERFACE ARTIST Ot J44.9 CHRONIC OBSTRUCTIVE PULMONARY DISEASE, U 09/27/2016 ROCIO ELIZALDE USER INTERFACE ARTIST Ot R06.00 DYSPNEA, UNSPECIFIED 09/27/2016 ROCIO ELIZALDE USER INTERFACE ARTIST Ot R09.02 HYPOXEMIA 09/27/2016 ROCIO ELIZALDE USER INTERFACE ARTIST Ot Z72.0 TOBACCO USE 09/28/2016 ROCIO ELIZALDE USER INTERFACE ARTIST Ot J44.9 CHRONIC OBSTRUCTIVE PULMONARY DISEASE, U 09/28/2016 ROCIO ELIZALDE USER INTERFACE ARTIST Ot R06.00 DYSPNEA, UNSPECIFIED 09/28/2016 ROCIO ELIZALDE USER INTERFACE ARTIST Ot R09.02 HYPOXEMIA 09/28/2016 ROCIO ELIZALDE USER INTERFACE ARTIST Ot Z72.0 TOBACCO USE 09/30/2016 ROCIO ELIZALDE USER INTERFACE ARTIST Ot J44.1 CHRONIC OBSTRUCTIVE PULMONARY DISEASE W 10/13/2016 CASEY SIMPSON BUTCHER'S ASSISTANT Ot D50.9 IRON DEFICIENCY ANEMIA, UNSPECIFIED 10/13/2016 CASEY SIMPSON BUTCHER'S ASSISTANT Ot J44.9 CHRONIC OBSTRUCTIVE PULMONARY DISEASE, U 10/13/2016 CASEY SIMPSON BUTCHER'S ASSISTANT Ot K57.30 DVRTCLOS OF LG INT W/O PERFORATION OR AB 10/13/2016 CASEY SIMPSON BUTCHER'S ASSISTANT Ot K86.89 OTHER SPECIFIED DISEASES OF PANCREAS 10/13/2016 CASEY SIMPSON BUTCHER'S ASSISTANT Ot R10.12 LEFT UPPER QUADRANT PAIN 10/20/2016 ROCIO ELIZALDE USER INTERFACE ARTIST Ot J44.1 CHRONIC OBSTRUCTIVE PULMONARY DISEASE W 11/28/2016 ROCIO ELIZALDE USER INTERFACE ARTIST Ot J30.9 ALLERGIC RHINITIS, UNSPECIFIED 11/28/2016 ROCIO ELIZALDE USER INTERFACE ARTIST Ot R06.00 DYSPNEA, UNSPECIFIED 11/28/2016 ROCIO ELIZALDE USER INTERFACE ARTIST Ot R06.02 SHORTNESS OF BREATH 11/28/2016 ROCIO ELIZALDE USER INTERFACE ARTIST Ot R09.02 HYPOXEMIA 11/28/2016 ROCIO ELIZALDE USER INTERFACE ARTIST Ot Z72.0 TOBACCO USE 12/30/2016 ROCIO ELIZALDE USER INTERFACE ARTIST Ot J30.9 ALLERGIC RHINITIS, UNSPECIFIED 12/30/2016 ROCIO ELIZALDE USER INTERFACE ARTIST Ot R06.00 DYSPNEA, UNSPECIFIED 12/30/2016 ROCIO ELIZALDE USER INTERFACE ARTIST Ot R06.02 SHORTNESS OF BREATH 12/30/2016 ROCIO ELIZALDE USER INTERFACE ARTIST Ot R09.02 HYPOXEMIA 12/30/2016 ROCIO ELIZALDE USER INTERFACE ARTIST Ot Z72.0 TOBACCO USE 04/12/2017 ROCIO ELIZALDE USER INTERFACE ARTIST Ot J43.9 EMPHYSEMA, UNSPECIFIED 04/12/2017 ROCIO ELIZALDE USER INTERFACE ARTIST Ot J96.20 ACUTE AND CHR RESP FAILURE, UNSP W HYPOX 04/12/2017 ROCIO ELIZALDE APRN Ot Z72.0 TOBACCO USE 06/27/2017 BARNIDGE DOLARAT Lloyd Ot D50.9 IRON DEFICIENCY ANEMIA, UNSPECIFIED 06/27/2017 BARNIMILY VIDALES DO E Ot F17.210 NICOTINE DEPENDENCE, CIGARETTES, UNCOMPL 06/27/2017 BARNIDGE DOLARAT E Ot F32.9 MAJOR DEPRESSIVE DISORDER, SINGLE EPISOD 06/27/2017 BARGAMA DOLARAT E Ot F41.9 ANXIETY DISORDER, UNSPECIFIED 06/27/2017 BARNIJOSÉE DOLARAT E Ot G25.0 ESSENTIAL TREMOR 06/27/2017 BARNIDGLloyd DORANDYMILY E Ot G43.909 MIGRAINE, UNSP, NOT INTRACTABLE, WITHOUT 06/27/2017 BARNIDGE DORANDYMILY E Ot I10 ESSENTIAL (PRIMARY) HYPERTENSION 06/27/2017 LARA MILLARD DOT E Ot 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 06/27/2017 MILY MILLARD DO Ot J30.2 OTHER SEASONAL ALLERGIC RHINITIS 06/27/2017 MILY MILLARD DO E Ot J43.9 EMPHYSEMA, UNSPECIFIED 06/27/2017 BARNIJOSÉE LARA DUARTET E Ot J96.20 ACUTE AND CHR RESP FAILURE, UNSP W HYPOX 06/27/2017 LARA MILLARD DOT E Ot K21.9 GASTRO-ESOPHAGEAL REFLUX DISEASE WITHOUT 06/27/2017 BARNIMILY VIDALES DO E Ot K57.90 DVRTCLOS OF INTEST, PART UNSP, W/O PERF 06/27/2017 BARNILARA VIDALES DOT E Ot K58.9 IRRITABLE BOWEL SYNDROME WITHOUT DIARRHE 06/27/2017 LARA MILLARD DOT E Ot M19.91 PRIMARY OSTEOARTHRITIS, UNSPECIFIED SITE 06/27/2017 MILY MILLARD DO Ot Q61.3 POLYCYSTIC KIDNEY, UNSPECIFIED 06/27/2017 MILY MILLARD DO E Ot R41.3 OTHER AMNESIA 06/27/2017 MILY MILLARD DO E Ot Z79.52 HALF-WAY (CURRENT) USE OF SYSTEMIC STER 06/27/2017 MILY MILLARD DO Ot Z95.5 PRESENCE OF CORONARY ANGIOPLASTY IMPLANT 06/27/2017 MILY MILLARD DO Ot Z99.81 DEPENDENCE ON SUPPLEMENTAL OXYGEN 06/27/2017 MILY MILLARD DO Ot D50.9 IRON DEFICIENCY ANEMIA, UNSPECIFIED 06/27/2017 MILY MILLARD DO Ot F17.210 NICOTINE DEPENDENCE, CIGARETTES, UNCOMPL 06/27/2017 MILY MILLARD DO Ot F32.9 MAJOR DEPRESSIVE DISORDER, SINGLE EPISOD 06/27/2017 MILY MILLARD DO Ot F41.9 ANXIETY DISORDER, UNSPECIFIED 06/27/2017 MILY MILLARD DO Ot G25.0 ESSENTIAL TREMOR 06/27/2017 MILY MILLARD DO Ot G43.909 MIGRAINE, UNSP, NOT INTRACTABLE, WITHOUT 06/27/2017 BARMILY MALLOY DO Ot I10 ESSENTIAL (PRIMARY) HYPERTENSION 06/27/2017 MILY MILLARD DO Ot 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 06/27/2017 MILY MILLARD DO Ot J30.2 OTHER SEASONAL ALLERGIC RHINITIS 06/27/2017 MILY MILLARD DO Ot J43.9 EMPHYSEMA, UNSPECIFIED 06/27/2017 MILY MILLARD DO Ot J96.20 ACUTE AND CHR RESP FAILURE, UNSP W HYPOX 06/27/2017 MILY MILLARD DO Ot K21.9 GASTRO-ESOPHAGEAL REFLUX DISEASE WITHOUT 06/27/2017 MILY MILLARD DO Ot K57.90 DVRTCLOS OF INTEST, PART UNSP, W/O PERF 06/27/2017 MILY MILLARD DO Ot K58.9 IRRITABLE BOWEL SYNDROME WITHOUT DIARRHE 06/27/2017 MILY MILLARD DO Ot M19.91 PRIMARY OSTEOARTHRITIS, UNSPECIFIED SITE 06/27/2017 MILY MILLARD DO Ot Q61.3 POLYCYSTIC KIDNEY, UNSPECIFIED 06/27/2017 MILY MILLARD DO Ot R41.3 OTHER AMNESIA 06/27/2017 MILY MILLARD DO Ot Z79.52 GAME DESIGNER (CURRENT) USE OF SYSTEMIC STER 06/27/2017 MILY MILLARD DO Ot Z95.5 PRESENCE OF CORONARY ANGIOPLASTY IMPLANT 06/27/2017 MILY MILLARD DO Ot Z99.81 DEPENDENCE ON SUPPLEMENTAL OXYGEN 06/28/2017 MILY MILLARD DO Ot D50.9 IRON DEFICIENCY ANEMIA, UNSPECIFIED 06/28/2017 MILY MILLARD DO Ot F17.210 NICOTINE DEPENDENCE, CIGARETTES, UNCOMPL 06/28/2017 MILY MILLARD DO Ot F32.9 MAJOR DEPRESSIVE DISORDER, SINGLE EPISOD 06/28/2017 MILY MILLARD DO Ot F41.9 ANXIETY DISORDER, UNSPECIFIED 06/28/2017 MILY MILLARD DO Ot G25.0 ESSENTIAL TREMOR 06/28/2017 MILY MILLARD DO Ot G43.909 MIGRAINE, UNSP, NOT INTRACTABLE, WITHOUT 06/28/2017 MILY MILLARD DO Ot I10 ESSENTIAL (PRIMARY) HYPERTENSION 06/28/2017 MILY MILLARD DO Ot 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 06/28/2017 MILY MILLARD DO Ot J30.2 OTHER SEASONAL ALLERGIC RHINITIS 06/28/2017 MILY MILLARD DO, Ot J43.9 EMPHYSEMA, UNSPECIFIED 06/28/2017 MILY MILLARD DO Ot J96.20 ACUTE AND CHR RESP FAILURE, UNSP W HYPOX 06/28/2017 MILY MILLARD DO Ot K21.9 GASTRO-ESOPHAGEAL REFLUX DISEASE WITHOUT 06/28/2017 MILY MILLARD DO Ot K57.90 DVRTCLOS OF INTEST, PART UNSP, W/O PERF 06/28/2017 MILY MILLARD DO Ot K58.9 IRRITABLE BOWEL SYNDROME WITHOUT DIARRHE 06/28/2017 MILY MILLARD DO Ot M19.91 PRIMARY OSTEOARTHRITIS, UNSPECIFIED SITE 06/28/2017 MILY MILLARD DO Ot Q61.3 POLYCYSTIC KIDNEY, UNSPECIFIED 06/28/2017 MILY MILLARD DO Ot R41.3 OTHER AMNESIA 06/28/2017 MILY MILLARD DO Ot Z79.52 HALF-WAY (CURRENT) USE OF SYSTEMIC STER 06/28/2017 MILY MILLARD DO Ot Z95.5 PRESENCE OF CORONARY ANGIOPLASTY IMPLANT 06/28/2017 MILY MILLARD DO Ot Z99.81 DEPENDENCE ON SUPPLEMENTAL OXYGEN 06/29/2017 MILY MILLARD DO Ot D50.9 IRON DEFICIENCY ANEMIA, UNSPECIFIED 06/29/2017 MILY MILLARD DO Ot F17.210 NICOTINE DEPENDENCE, CIGARETTES, UNCOMPL 06/29/2017 MILY MILLARD DO Ot F32.9 MAJOR DEPRESSIVE DISORDER, SINGLE EPISOD 06/29/2017 MILY MILLARD DO Ot F41.9 ANXIETY DISORDER, UNSPECIFIED 06/29/2017 MILY MILLARD DO Ot G25.0 ESSENTIAL TREMOR 06/29/2017 MILY MILLARD DO Ot G43.909 MIGRAINE, UNSP, NOT INTRACTABLE, WITHOUT 06/29/2017 BARNIMILY VIDALES DO Ot I10 ESSENTIAL (PRIMARY) HYPERTENSION 06/29/2017 MILY MILLARD DO Ot 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 06/29/2017 MILY MILLARD DO Ot J30.2 OTHER SEASONAL ALLERGIC RHINITIS 06/29/2017 MILY MILLARD DO Ot J43.9 EMPHYSEMA, UNSPECIFIED 06/29/2017 MILY MILLARD DO Ot J96.20 ACUTE AND CHR RESP FAILURE, UNSP W HYPOX 06/29/2017 BARMILY MALLOY DO Ot K21.9 GASTRO-ESOPHAGEAL REFLUX DISEASE WITHOUT 06/29/2017 BARMILY MALLOY DO Ot K57.90 DVRTCLOS OF INTEST, PART UNSP, W/O PERF 06/29/2017 MILY MILLARD DO Ot K58.9 IRRITABLE BOWEL SYNDROME WITHOUT DIARRHE 06/29/2017 MILY MILLARD DO Ot M19.91 PRIMARY OSTEOARTHRITIS, UNSPECIFIED SITE 06/29/2017 MILY MILLARD DO Ot Q61.3 POLYCYSTIC KIDNEY, UNSPECIFIED 06/29/2017 MILY MILLARD DO Ot R41.3 OTHER AMNESIA 06/29/2017 MILY MILLARD DO Ot Z79.52 HALF-WAY (CURRENT) USE OF SYSTEMIC STER 06/29/2017 MILY MILLARD DO Ot Z95.5 PRESENCE OF CORONARY ANGIOPLASTY IMPLANT 06/29/2017 MILY MILLARD DO Ot Z99.81 DEPENDENCE ON SUPPLEMENTAL OXYGEN 06/29/2017 MILY MILLARD DO Ot D50.9 IRON DEFICIENCY ANEMIA, UNSPECIFIED 06/29/2017 MILY MILLARD DO Ot F17.210 NICOTINE DEPENDENCE, CIGARETTES, UNCOMPL 06/29/2017 MILY MILLARD DO Ot F32.9 MAJOR DEPRESSIVE DISORDER, SINGLE EPISOD 06/29/2017 MILY MILLARD DO Ot F41.9 ANXIETY DISORDER, UNSPECIFIED 06/29/2017 MILY MILLARD DO Ot G25.0 ESSENTIAL TREMOR 06/29/2017 MILY MILLARD DO Ot G43.909 MIGRAINE, UNSP, NOT INTRACTABLE, WITHOUT 06/29/2017 MILY MILLARD DO Ot I10 ESSENTIAL (PRIMARY) HYPERTENSION 06/29/2017 MILY MILLARD DO Ot 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 06/29/2017 MILY MILLARD DO Ot J30.2 OTHER SEASONAL ALLERGIC RHINITIS 06/29/2017 MILY MILLARD DO Ot J43.9 EMPHYSEMA, UNSPECIFIED 06/29/2017 MILY MILLARD DO Ot J96.21 ACUTE AND CHRONIC RESPIRATORY FAILURE [place] 06/29/2017 MILY MILLARD DO Ot K21.9 GASTRO-ESOPHAGEAL REFLUX DISEASE WITHOUT 06/29/2017 MILY MILLARD DO Ot K57.90 DVRTCLOS OF INTEST, PART UNSP, W/O PERF 06/29/2017 MILY MILLARD DO Ot K58.9 IRRITABLE BOWEL SYNDROME WITHOUT DIARRHE 06/29/2017 LARA MILLARD DOT E Ot M19.91 PRIMARY OSTEOARTHRITIS, UNSPECIFIED SITE 06/29/2017 BARMILY MALLOY DO Ot Q61.3 POLYCYSTIC KIDNEY, UNSPECIFIED 06/29/2017 PETERJOSÉMILY Desai DO Ot R41.3 OTHER AMNESIA 06/29/2017 BARNIDGMILY Desai DO Ot R53.81 OTHER MALAISE 06/29/2017 NUSRATDALLASMILY Desai DO Ot Z79.52 HALF-WAY (CURRENT) USE OF SYSTEMIC STER 06/29/2017 MILY MILLARD DO Ot Z95.5 PRESENCE OF CORONARY ANGIOPLASTY IMPLANT 06/29/2017 MILY MILLARD DO Ot Z99.81 DEPENDENCE ON SUPPLEMENTAL OXYGEN 09/12/2017 ОЛЕГ KWON MD Ot D50.9 IRON DEFICIENCY ANEMIA, UNSPECIFIED 09/12/2017 ОЛЕГ KWON MD Ot F17.210 NICOTINE DEPENDENCE, CIGARETTES, UNCOMPL 09/12/2017 ОЛЕГ KWON MD Ot F32.9 MAJOR DEPRESSIVE DISORDER, SINGLE EPISOD 09/12/2017 ОЛЕГ KWON MD Ot F41.9 ANXIETY DISORDER, UNSPECIFIED 09/12/2017 ОЛЕГ KWON MD Ot G25.0 ESSENTIAL TREMOR 09/12/2017 ОЛЕГ KWON MD Ot I10 ESSENTIAL (PRIMARY) HYPERTENSION 09/12/2017 ОЛЕГ KWON MD Ot 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 09/12/2017 ОЛЕГ KWON MD Ot J30.2 OTHER SEASONAL ALLERGIC RHINITIS 09/12/2017 ОЛЕГ KWON MD Ot J43.9 EMPHYSEMA, UNSPECIFIED 09/12/2017 ОЛЕГ KWON MD Ot J96.21 ACUTE AND CHRONIC RESPIRATORY FAILURE [place] 09/12/2017 ОЛЕГ KWON MD Ot J96.22 ACUTE AND CHRONIC RESPIRATORY FAILURE [place] 09/12/2017 ОЛЕГ KWON MD Ot K21.9 GASTRO-ESOPHAGEAL REFLUX DISEASE WITHOUT 09/12/2017 ОЛЕГ KWON MD Ot K58.9 IRRITABLE BOWEL SYNDROME WITHOUT DIARRHE 09/12/2017 ОЛЕГ KWON MD Ot M19.91 PRIMARY OSTEOARTHRITIS, UNSPECIFIED SITE 09/12/2017 ОЛЕГ KWON MD, Ot R41.3 OTHER AMNESIA 09/12/2017 ОЛЕГ KWON MD, Ot Z79.51 GAME DESIGNER (CURRENT) USE OF INHALED STERO 09/12/2017 ОЛЕГ KWON MD Ot Z79.52 GAME DESIGNER (CURRENT) USE OF SYSTEMIC STER 09/12/2017 ОЛЕГ KWON MD Ot Z95.5 PRESENCE OF CORONARY ANGIOPLASTY IMPLANT 09/12/2017 ОЛЕГ KWON MD Ot Z99.81 DEPENDENCE ON SUPPLEMENTAL OXYGEN 09/13/2017 ОЛЕГ KWON MD Ot D50.9 IRON DEFICIENCY ANEMIA, UNSPECIFIED 09/13/2017 ОЛЕГ KWON MD Ot F17.210 NICOTINE DEPENDENCE, CIGARETTES, UNCOMPL 09/13/2017 ОЛЕГ KWON MD Ot F32.9 MAJOR DEPRESSIVE DISORDER, SINGLE EPISOD 09/13/2017 ОЛЕГ KWON MD Ot F41.9 ANXIETY DISORDER, UNSPECIFIED 09/13/2017 ОЛЕГ KWON MD Ot G25.0 ESSENTIAL TREMOR 09/13/2017 ОЛЕГ KWON MD Ot I10 ESSENTIAL (PRIMARY) HYPERTENSION 09/13/2017 ОЛЕГ KWON MD Ot 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 09/13/2017 ОЛЕГ KWON MD Ot J30.2 OTHER SEASONAL ALLERGIC RHINITIS 09/13/2017 ОЛЕГ KWON MD Ot J43.9 EMPHYSEMA, UNSPECIFIED 09/13/2017 ОЛЕГ KWON MD Ot J96.21 ACUTE AND CHRONIC RESPIRATORY FAILURE [place] 09/13/2017 ОЛЕГ KWON MD Ot J96.22 ACUTE AND CHRONIC RESPIRATORY FAILURE [place] 09/13/2017 ОЛЕГ KWON MD Ot K21.9 GASTRO-ESOPHAGEAL REFLUX DISEASE WITHOUT 09/13/2017 ОЛЕГ KWON MD Ot K58.9 IRRITABLE BOWEL SYNDROME WITHOUT DIARRHE 09/13/2017 ОЛЕГ KWON MD Ot M19.91 PRIMARY OSTEOARTHRITIS, UNSPECIFIED SITE 09/13/2017 ОЛЕГ KWON MD Ot R41.3 OTHER AMNESIA 09/13/2017 ОЛЕГ KWON MD Ot Z79.51 HALF-WAY (CURRENT) USE OF INHALED STERO 09/13/2017 ОЛЕГ KWON MD, Ot Z79.52 HALF-WAY (CURRENT) USE OF SYSTEMIC STER 09/13/2017 ОЛЕГ KWON MD, Ot Z95.5 PRESENCE OF CORONARY ANGIOPLASTY IMPLANT 09/13/2017 ОЛЕГ KWON MD, Ot Z99.81 DEPENDENCE ON SUPPLEMENTAL OXYGEN 09/13/2017 ОЛЕГ KWON MD, Ot D50.9 IRON DEFICIENCY ANEMIA, UNSPECIFIED 09/13/2017 ОЛЕГ KWON MD Ot F17.210 NICOTINE DEPENDENCE, CIGARETTES, UNCOMPL 09/13/2017 ОЛЕГ KWON MD, Ot F32.9 MAJOR DEPRESSIVE DISORDER, SINGLE EPISOD 09/13/2017 ОЛЕГ KWON MD, Ot F41.9 ANXIETY DISORDER, UNSPECIFIED 09/13/2017 ОЛЕГ KWON MD, Ot G25.0 ESSENTIAL TREMOR 09/13/2017 ОЛЕГ KWON MD, Ot I10 ESSENTIAL (PRIMARY) HYPERTENSION 09/13/2017 ОЛЕГ KWON MD, Ot 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 09/13/2017 ОЛЕГ KWON MD, Ot J06.9 ACUTE UPPER RESPIRATORY INFECTION, UNSPE 09/13/2017 ОЛЕГ KWON MD, Ot J30.2 OTHER SEASONAL ALLERGIC RHINITIS 09/13/2017 ОЛЕГ KWON MD, Ot J43.9 EMPHYSEMA, UNSPECIFIED 09/13/2017 ОЛЕГ KWON MD Ot J96.21 ACUTE AND CHRONIC RESPIRATORY FAILURE [place] 09/13/2017 ОЛЕГ KWON MD, Ot J96.22 ACUTE AND CHRONIC RESPIRATORY FAILURE [place] 09/13/2017 ОЛЕГ KWON MD Ot K21.9 GASTRO-ESOPHAGEAL REFLUX DISEASE WITHOUT 09/13/2017 ОЛЕГ KWON MD Ot K58.9 IRRITABLE BOWEL SYNDROME WITHOUT DIARRHE 09/13/2017 ОЛЕГ KWON MD Ot M19.91 PRIMARY OSTEOARTHRITIS, UNSPECIFIED SITE 09/13/2017 ОЛЕГ KWON MD Ot R41.3 OTHER AMNESIA 09/13/2017 ОЛЕГ KWON MD Ot R53.81 OTHER MALAISE 09/13/2017 ОЛЕГ KWON MD Ot Z79.51 HALF-WAY (CURRENT) USE OF INHALED STERO 09/13/2017 ОЛЕГ KWON MD Ot Z79.52 HALF-WAY (CURRENT) USE OF SYSTEMIC STER 09/13/2017 ОЛЕГ KWON MD Ot Z95.5 PRESENCE OF CORONARY ANGIOPLASTY IMPLANT 09/13/2017 ОЛЕГ KWON MD Ot Z99.81 DEPENDENCE ON SUPPLEMENTAL OXYGEN 10/04/2017 ROCIO ELIZALDE APRN Ot J30.9 ALLERGIC RHINITIS, UNSPECIFIED 10/04/2017 ROCIO ELIZALDE APRN Ot J43.9 EMPHYSEMA, UNSPECIFIED 10/04/2017 ROCIO ELIZALDE APRN Ot Z72.0 TOBACCO USE 10/24/2017 ROCIO ELIZALDE APRN Ot J30.9 ALLERGIC RHINITIS, UNSPECIFIED 10/24/2017 ROCIO ELIZALDE APRN Ot J43.9 EMPHYSEMA, UNSPECIFIED 10/24/2017 ROCIO ELIZALDE APRN Ot Z72.0 TOBACCO USE 11/03/2017 GABRIELLE PEREZ, TORRES Galvez Ot Z01.818 ENCOUNTER FOR OTHER PREPROCEDURAL EXAMIN 12/08/2017 CASEY SIMPSON Ot J43.9 EMPHYSEMA, UNSPECIFIED 12/08/2017 CASEY SIMPSON Ot M81.0 AGE-RELATED OSTEOPOROSIS W/O CURRENT PAT 12/08/2017 CASEY SIMPSON Ot M85.88 OTH DISRD OF BONE DENSITY AND STRUCTURE, 12/08/2017 CASEY SIMPSON Ot Z12.31 ENCNTR SCREEN MAMMOGRAM FOR MALIGNANT NE 12/29/2017 Ot 272.4 HYPERLIPIDEMIA NEC/NOS 12/29/2017 Ot 401.9 HYPERTENSION NOS 12/29/2017 Ot 414.00 CORON ATHEROSCLER NOS TYPE VESSEL, NATIV 12/29/2017 Ot 785.1 PALPITATIONS 12/29/2017 Ot 786.09 RESPIRATORY ABNORM NEC 12/29/2017 ROCIO ELIZALDE APRN Ot J44.9 CHRONIC OBSTRUCTIVE PULMONARY DISEASE, U 12/29/2017 ROCIO ELIZALDE APRN Ot R09.02 HYPOXEMIA 12/29/2017 ROCIO ELIZALDE APRN Ot J44.9 CHRONIC OBSTRUCTIVE PULMONARY DISEASE, U 12/29/2017 ROCIO ELIZALDE APRN Ot R06.00 DYSPNEA, UNSPECIFIED 12/29/2017 ROCIO ELIZALDE APRN Ot R09.02 HYPOXEMIA 12/29/2017 ROCIO ELIZALDE APRN Ot Z72.0 TOBACCO USE Procedures Code Description [place] [id number] ROUTINE VENIPUNCTURE 04/03/2012 91632 ESR/SED RATE 04/03/2012 94324 CBC 04/03/2012 20998 CMP 04/03/2012 [id number] GFR CALC (RESULT ONLY) 04/03/2012 83455 XRAY CHEST 2 VIEW 04/12/[address] CHEST W/O DYE 04/12/[address] ABDOMEN & PELVIS W/ & W/ O CONTRAST 04/12/2012 83294 OXIMETRY 04/20/2012 31720 ROUTINE VENIPUNCTURE 08/20/2012 68685 ESR/SED RATE 08/20/2012 87251 CBC 08/20/2012 64601 CMP 08/20/2012 8464042 GFR CALC (RESULT ONLY) 08/20/2012 70497 CRP 08/21/2012 24832 PT/INR 08/21/2012 01839 TSH 09/14/2012 59832 MAMMOGRAM, SCREENING 03/12/2013 31009 ROUTINE VENIPUNCTURE 03/20/2013 23050 CELIAC DISEASE ANALYZER 03/22/2013 49886 MAMMOGRAM, SCREENING 05/21/2013 60492 BONE MINERAL DENSITY, HEEL US (IN HOUSE) 05/22/2013 36197 ROUTINE VENIPUNCTURE 06/18/2013 18406 SED/ESR RATE (IN HOUSE) 06/18/2013 86140 PULMONARY FUNCTION TEST 06/18/2013 85999 CMP 06/18/2013 27271 LIPID PANEL 06/18/2013 0945814 GFR CALC (RESULT ONLY) 06/18/2013 31711 CBC 06/18/2013 28405 XRAY FOOT RIGHT COMP MIN 3 VIEWS 02/24/2014 14944 ROUTINE VENIPUNCTURE 03/28/2014 2658750 GFR CALC (RESULT ONLY) 03/28/2014 32281 CMP 03/28/2014 04302 LIPID PANEL 03/28/2014 01037 MAMMOGRAM, SCREENING 05/29/2014 Results Test Result Range [...] NRG Measurement of body temperature 97.9 NRG Anemia Profile B - 07/01/16 15:54 WBC 13.0 x10E3/uL 3.4-10.8 RBC 3.40 x10E6/uL 3.77-5.28 Hemoglobin 7.8 g/dL 11.1-15.9 Hematocrit 25.6 % 34.0-46.6 MCV 75 fL 79-97 MCH 22.9 pg 26.6-33.0 MCHC 30.5 g/dL 31.5-35.7 RDW 15.9 % 12.3-15.4 Platelets 647 x10E3/uL 150-379 Neutrophils 89 % Lymphs 8 % Monocytes 1 % Eos 1 % Basos 1 % Neutrophils (Absolute) 11.6 x10E3/uL 1.4-7.0 Lymphs (Absolute) 1.0 x10E3/uL 0.7-3.1 Monocytes(Absolute) 0.1 x10E3/uL 0.1-0.9 Eos (Absolute) 0.1 x10E3/uL 0.0-0.4 Baso (Absolute) 0.1 x10E3/uL 0.0-0.2 Hematology Comments: Note: Vitamin B12 392 pg/mL 211-946 Folate (Folic Acid), Serum 18.0 ng/mL >3.0 Iron Bind.Cap.(TIBC) 377 ug/dL 250-450 UIBC 363 ug/dL 118-369 Iron, Serum 14 ug/dL 27-139 Iron Saturation 4 % 15-55 Ferritin, Serum 15 ng/mL 15-150 Reticulocyte Count 2.3 % 0.6-2.6 CBC With Differential/Platelet - 07/11/16 15:49 WBC 8.9 x10E3/uL 3.4-10.8 RBC 4.04 x10E6/uL 3.77-5.28 Hemoglobin 8.8 g/dL 11.1-15.9 Hematocrit 30.3 % 34.0-46.6 MCV 75 fL 79-97 MCH 21.8 pg 26.6-33.0 MCHC 29.0 g/dL 31.5-35.7 RDW 17.2 % 12.3-15.4 Platelets 564 x10E3/uL 150-379 Neutrophils 78 % Lymphs 15 % Monocytes 5 % Eos 0 % Basos 1 % Neutrophils (Absolute) 7.0 x10E3/uL 1.4-7.0 Lymphs (Absolute) 1.3 x10E3/uL 0.7-3.1 Monocytes(Absolute) 0.4 x10E3/uL 0.1-0.9 Eos (Absolute) 0.0 x10E3/uL 0.0-0.4 Baso (Absolute) 0.1 x10E3/uL 0.0-0.2 Immature Granulocytes 1 % Immature Grans (Abs) 0.0 x10E3/uL 0.0-0.1 Hematology Comments: Note: CBC With Differential/Platelet - 08/02/16 09:19 WBC 10.7 x10E3/uL 3.4-10.8 RBC 3.96 x10E6/uL 3.77-5.28 Hemoglobin 9.9 g/dL 11.1-15.9 Hematocrit 33.3 % 34.0-46.6 MCV 84 fL 79-97 MCH 25.0 pg 26.6-33.0 MCHC 29.7 g/dL 31.5-35.7 RDW 23.3 % 12.3-15.4 Platelets 472 x10E3/uL 150-379 Neutrophils 58 % Lymphs 21 % Monocytes 12 % Eos 4 % Basos 1 % Neutrophils (Absolute) 6.3 x10E3/uL 1.4-7.0 Lymphs (Absolute) 2.3 x10E3/uL 0.7-3.1 Monocytes(Absolute) 1.3 x10E3/uL 0.1-0.9 Eos (Absolute) 0.4 x10E3/uL 0.0-0.4 Baso (Absolute) 0.1 x10E3/uL 0.0-0.2 Immature Granulocytes 4 % Immature Grans (Abs) 0.4 x10E3/uL 0.0-0.1 Hematology Comments: Note: CBC With Differential/Platelet - 08/24/16 10:30 WBC 10.6 x10E3/uL 3.4-10.8 RBC 3.92 x10E6/uL 3.77-5.28 Hemoglobin 10.8 g/dL 11.1-15.9 Hematocrit 35.1 % 34.0-46.6 MCV 90 fL 79-97 MCH 27.6 pg 26.6-33.0 MCHC 30.8 g/dL 31.5-35.7 RDW 20.5 % 12.3-15.4 Platelets 370 x10E3/uL 150-379 Neutrophils 65 % Lymphs 20 % Monocytes 8 % Eos 5 % Basos 1 % Neutrophils (Absolute) 6.9 x10E3/uL 1.4-7.0 Lymphs (Absolute) 2.1 x10E3/uL 0.7-3.1 Monocytes(Absolute) 0.9 x10E3/uL 0.1-0.9 Eos (Absolute) 0.6 x10E3/uL 0.0-0.4 Baso (Absolute) 0.1 x10E3/uL 0.0-0.2 Immature Granulocytes 1 % Immature Grans (Abs) 0.1 x10E3/uL 0.0-0.1 Comp. Metabolic Panel (14) - 08/24/16 10:30 Glucose, Serum 109 mg/dL 65-99 BUN 10 mg/dL 8-27 Creatinine, Serum 0.65 mg/dL 0.57-1.00 eGFR If NonAfricn Am 93 mL/min/1.73 >59 eGFR If Africn Am 108 mL/min/1.73 >59 BUN/Creatinine Ratio 15 12-28 Sodium, Serum 139 mmol/L 134-144 Potassium, Serum 4.1 mmol/L 3.5-5.2 Chloride, Serum 96 mmol/L 96-106 Carbon Dioxide, Total 26 mmol/L 18-29 Calcium, Serum 9.5 mg/dL 8.7-10.3 Protein, Total, Serum 6.2 g/dL 6.0-8.5 Albumin, Serum 4.2 g/dL 3.6-4.8 Globulin, Total 2.0 g/dL 1.5-4.5 A/G Ratio 2.1 1.2-2.2 Bilirubin, Total <0.2 mg/dL 0.0-1.2 Alkaline Phosphatase, S 64 IU/L 39-117 AST (SGOT) 16 IU/L 0-40 ALT (SGPT) 11 IU/L 0-32 CBC With Differential/Platelet - 09/21/16 11:36 WBC 12.1 x10E3/uL 3.4-10.8 RBC 4.11 x10E6/uL 3.77-5.28 Hemoglobin 11.8 g/dL 11.1-15.9 Hematocrit 37.8 % 34.0-46.6 MCV 92 fL 79-97 MCH 28.7 pg 26.6-33.0 MCHC 31.2 g/dL 31.5-35.7 RDW 15.2 % 12.3-15.4 Platelets 385 x10E3/uL 150-379 Neutrophils 82 % Lymphs 7 % Monocytes 7 % Eos 2 % Basos 1 % Neutrophils (Absolute) 9.9 x10E3/uL 1.4-7.0 Lymphs (Absolute) 0.9 x10E3/uL 0.7-3.1 Monocytes(Absolute) 0.9 x10E3/uL 0.1-0.9 Eos (Absolute) 0.3 x10E3/uL 0.0-0.4 Baso (Absolute) 0.1 x10E3/uL 0.0-0.2 Immature Granulocytes 1 % Immature Grans (Abs) 0.1 x10E3/uL 0.0-0.1 CBC With Differential/Platelet - 11/28/16 12:27 WBC 13.0 x10E3/uL 3.4-10.8 RBC 4.30 x10E6/uL 3.77-5.28 Hemoglobin 12.5 g/dL 11.1-15.9 Hematocrit 38.9 % 34.0-46.6 MCV 91 fL 79-97 MCH 29.1 pg 26.6-33.0 MCHC 32.1 g/dL 31.5-35.7 RDW 13.2 % 12.3-15.4 Platelets 298 x10E3/uL 150-379 Neutrophils 85 % Lymphs 7 % Monocytes 5 % Eos 2 % Basos 0 % Neutrophils (Absolute) 11.0 x10E3/uL 1.4-7.0 Lymphs (Absolute) 0.9 x10E3/uL 0.7-3.1 Monocytes(Absolute) 0.7 x10E3/uL 0.1-0.9 Eos (Absolute) 0.3 x10E3/uL 0.0-0.4 Baso (Absolute) 0.1 x10E3/uL 0.0-0.2 Immature Granulocytes 1 % Immature Grans (Abs) 0.1 x10E3/uL 0.0-0.1 CBC With Differential/Platelet - 12/14/16 17:27 WBC 14.9 x10E3/uL 3.4-10.8 RBC 4.28 x10E6/uL 3.77-5.28 Hemoglobin 12.7 g/dL 11.1-15.9 Hematocrit 38.0 % 34.0-46.6 MCV 89 fL 79-97 MCH 29.7 pg 26.6-33.0 MCHC 33.4 g/dL 31.5-35.7 RDW 13.1 % 12.3-15.4 Platelets 462 x10E3/uL 150-379 Neutrophils 86 % Lymphs 6 % Monocytes 6 % Eos 1 % Basos 0 % Neutrophils (Absolute) 12.8 x10E3/uL 1.4-7.0 Lymphs (Absolute) 0.9 x10E3/uL 0.7-3.1 Monocytes(Absolute) 0.8 x10E3/uL 0.1-0.9 Eos (Absolute) 0.1 x10E3/uL 0.0-0.4 Baso (Absolute) 0.1 x10E3/uL 0.0-0.2 Immature Granulocytes 1 % Immature Grans (Abs) 0.2 x10E3/uL 0.0-0.1 Hematology Comments: Note: Ferritin, Serum - 12/14/16 17:27 Ferritin, Serum 50 ng/mL 15-150 FERRITIN, SERUM - 12/14/16 17:27 Ferritin, Serum 50 ng/mL 15-150 CBC - 12/14/16 17:27 WBC 14.9 x10E3/uL 3.4-10.8 RBC 4.28 x10E6/uL 3.77-5.28 Hemoglobin 12.7 g/dL 11.1-15.9 Hematocrit 38.0 % 34.0-46.6 MCV 89 fL 79-97 MCH 29.7 pg 26.6-33.0 MCHC 33.4 g/dL 31.5-35.7 RDW 13.1 % 12.3-15.4 Platelets 462 x10E3/uL 150-379 Neutrophils 86 % NRG Lymphs 6 % NRG Monocytes 6 % NRG Eos 1 % NRG Basos 0 % NRG Neutrophils (Absolute) 12.8 x10E3/uL 1.4-7.0 Lymphs (Absolute) 0.9 x10E3/uL 0.7-3.1 Monocytes(Absolute) 0.8 x10E3/uL 0.1-0.9 Eos (Absolute) 0.1 x10E3/uL 0.0-0.4 Baso (Absolute) 0.1 x10E3/uL 0.0-0.2 Immature Granulocytes 1 % NRG Immature Grans (Abs) 0.2 x10E3/uL 0.0-0.1 Hematology Comments: Note: NRG C difficile Toxin Gene KEREN - 12/20/16 17:27 C difficile Toxin Gene KEREN Negative Negative White Blood Cells (WBC), Stool - 12/20/16 17:27 White Blood Cells (WBC), Stool Note STOOL (C-DIFF) - 12/20/16 17:27 C difficile Toxin Gene KEREN Negative Negative FERRITIN, SERUM - 05/03/17 17:24 FERRITIN 9 ng/mL 20-288 CULTURE, URINE - 06/15/17 14:47 CULTURE, URINE, ROUTINE SEE NOTE NRG Blood lactic acid measurement (moles/volume) - 06/24/17 11:22 Blood lactic acid measurement (moles/volume) 0.99 mmol/L 0.50-2.00 PT panel in platelet poor plasma by coagulation assay - 06/24/17 11:22 Prothrombin time (PT) in platelet poor plasma by coagulation assay 13.1 s 12.2-14.7 INR in platelet poor plasma or blood by coagulation assay 1.0 0.8-1.4 Activated partial thromboplastin time (aPTT) in platelet poor plasma bycoagulation assay - 06/24/17 11:22 Activated partial thromboplastin time (aPTT) in platelet poor plasma bycoagulation assay 27 s 24-35 Comprehensive metabolic panel - 06/24/17 11:22 Serum or plasma sodium measurement (moles/volume) 130 mmol/L 135-145 Serum or plasma potassium measurement (moles/volume) 3.9 mmol/L 3.6-5.0 Serum or plasma chloride measurement (moles/volume) 98 mmol/L 98-107 Carbon dioxide 22 mmol/L 21-32 Serum or plasma anion gap determination (moles/volume) 10 mmol/L 5-14 Serum or plasma urea nitrogen measurement (mass/volume) 11 mg/dL 7-18 Serum or plasma creatinine measurement (mass/volume) 0.70 mg/dL 0.60-1.30 Serum or plasma urea nitrogen/creatinine mass ratio 16 NRG Serum or plasma creatinine measurement with calculation of estimated glomerular filtration rate > NRG Serum or plasma glucose measurement (mass/volume) 111 mg/dL 70-105 Serum or plasma calcium measurement (mass/volume) 8.7 mg/dL 8.5-10.1 Serum or plasma total bilirubin measurement (mass/volume) 0.2 mg/dL 0.1-1.0 Serum or plasma alkaline phosphatase measurement (enzymatic activity/volume) 64 U/L 40-136 Serum or plasma aspartate aminotransferase measurement (enzymatic activity/ volume) 18 U/L 5-34 Serum or plasma alanine aminotransferase measurement (enzymatic activity/volume ) 13 U/L 0-55 Serum or plasma protein measurement (mass/volume) 6.5 g/dL 6.4-8.2 Serum or plasma albumin measurement (mass/volume) 3.9 g/dL 3.2-4.5 Magnesium - 06/24/17 11:22 Magnesium 1.8 mg/dL 1.8-2.4 Serum or plasma creatine kinase measurement (enzymatic activity/volume) - 06/24 11:22 Serum or plasma creatine kinase measurement (enzymatic activity/volume) 49 U/L 29-168 Complete blood count (CBC) with automated white blood cell (WBC) differential - 06/24/17 11:22 Blood leukocytes automated count (number/volume) 17.5 10*3/uL 4.3-11.0 Blood erythrocytes automated count (number/volume) 4.46 10*6/uL 4.35-5.85 Venous blood hemoglobin measurement (mass/volume) 12.1 g/dL 11.5-16.0 Blood hematocrit (volume fraction) 37 % 35-52 Automated erythrocyte mean corpuscular volume 83 [foz_us] 80-99 Automated erythrocyte mean corpuscular hemoglobin (mass per erythrocyte) 27 pg 25-34 Automated erythrocyte mean corpuscular hemoglobin concentration measurement ( mass/volume) 33 g/dL 32-36 Automated erythrocyte distribution width ratio 19.2 % 10.0-14.5 Automated blood platelet count (count/volume) 442 10*3/uL 130-400 Automated blood platelet mean volume measurement 8.9 [foz_us] 7.4-10.4 Automated blood neutrophils/100 leukocytes 83 % 42-75 Automated blood lymphocytes/100 leukocytes 6 % 12-44 Blood monocytes/100 leukocytes 10 % 0-12 Automated blood eosinophils/100 leukocytes 1 % 0-10 Automated blood basophils/100 leukocytes 0 % 0-10 Blood neutrophils automated count (number/volume) 14.5 10*3 1.8-7.8 Blood lymphocytes automated count (number/volume) 1.0 10*3 1.0-4.0 Blood monocytes automated count (number/volume) 1.8 10*3 0.0-1.0 Automated eosinophil count 0.1 10*3/uL 0.0-0.3 Automated blood basophil count (count/volume) 0.1 10*3/uL 0.0-0.1 Serum or plasma creatine kinase MB measurement (enzymatic activity/volume) - 11:22 Serum or plasma creatine kinase MB measurement (enzymatic activity/volume) 1.7 ng/mL <6.6 Serum or plasma troponin i.cardiac measurement (mass/volume) - 06/24/17 11:22 Serum or plasma troponin i.cardiac measurement (mass/volume) < ng/ mL <0.30 Serum or plasma thyrotropin measurement by detection limit <=0.05 miu/l (units/ volume) - 06/24/17 11:22 Serum or plasma thyrotropin measurement by detection limit <=0.05 miu/l (units/ volume) 0.64 u[iU]/mL 0.35-4.94 Serum or plasma lithium measurement (moles/volume) - 06/24/17 11:22 BNP level 17.8 pg/mL <100.0 Blood manual differential performed detection - 06/24/17 11:22 Blood monocytes/100 leukocytes 2 % NRG Manual blood segmented neutrophils/100 leukocytes 93 % NRG Manual blood lymphocytes/100 leukocytes 2 % NRG Manual eosinophils/100 leukocytes in nose 3 % NRG Blood erythrocyte morphology finding identification NORMAL NRG Bacterial blood culture - 06/24/17 11:22 Bacterial blood culture NG NRG Influenza virus A and B antigen detection - 06/24/17 11:45 FLU RESULT NEGATIVE FOR INFLUENZA A AND B ANTIGENS BY IA NRG Arterial blood gas measurement - 06/24/17 11:50 Blood pCO2 41 mm[Hg] 35-45 Blood pO2 54 mm[Hg] 79-93 Arterial blood bicarbonate measurement (moles/volume) 25 mmol/L 23-27 Arterial blood base excess by calculation 1.0 mmol/L -2.5 -2.5 Arterial blood oxygen saturation measurement 85 % 94-100 * Inhaled oxygen flow rate BIPAP 30% NRG Arterial blood pH measurement with patient temperature correction 7.41 7.37-7.43 Arterial blood carbon dioxide, total measurement (moles/volume) 25.8 mmol/L 21.0-31.0 Body site LEFT RADIAL NRG Assessment of wrist artery patency prior to arterial puncture POSITIVE NRG Setting of ventilation mode NO NRG Measurement of body temperature 102.6 NRG Bacterial blood culture - 06/24/17 12:04 Bacterial blood culture NG NRG Arterial blood gas measurement - 06/24/17 12:50 Blood pCO2 42 mm[Hg] 35-45 Blood pO2 62 mm[Hg] 79-93 Arterial blood bicarbonate measurement (moles/volume) 25 mmol/L 23-27 Arterial blood base excess by calculation 0.6 mmol/L -2.5 -2.5 Arterial blood oxygen saturation measurement 90 % 94-100 * Inhaled oxygen flow rate 50% BIPAP NRG Arterial blood pH measurement with patient temperature correction 7.39 7.37-7.43 Arterial blood carbon dioxide, total measurement (moles/volume) 26.0 mmol/L 21.0-31.0 Body site LEFT RADIAL NRG Assessment of wrist artery patency prior to arterial puncture POSITIVE NRG Setting of ventilation mode NO NRG Measurement of body temperature 100.9 NRG Complete blood count (CBC) with automated white blood cell (WBC) differential - 06/25/17 03:49 Blood leukocytes automated count (number/volume) 10.4 10*3/uL 4.3-11.0 Blood erythrocytes automated count (number/volume) 4.56 10*6/uL 4.35-5.85 Venous blood hemoglobin measurement (mass/volume) 12.3 g/dL 11.5-16.0 Blood hematocrit (volume fraction) 38 % 35-52 Automated erythrocyte mean corpuscular volume 84 [foz_us] 80-99 Automated erythrocyte mean corpuscular hemoglobin (mass per erythrocyte) 27 pg 25-34 Automated erythrocyte mean corpuscular hemoglobin concentration measurement ( mass/volume) 32 g/dL 32-36 Automated erythrocyte distribution width ratio 19.1 % 10.0-14.5 Automated blood platelet count (count/volume) 425 10*3/uL 130-400 Automated blood platelet mean volume measurement 9.3 [foz_us] 7.4-10.4 Automated blood neutrophils/100 leukocytes 96 % 42-75 Automated blood lymphocytes/100 leukocytes 3 % 12-44 Blood monocytes/100 leukocytes 1 % 0-12 Automated blood eosinophils/100 leukocytes 0 % 0-10 Automated blood basophils/100 leukocytes 0 % 0-10 Blood neutrophils automated count (number/volume) 10.0 10*3 1.8-7.8 Blood lymphocytes automated count (number/volume) 0.3 10*3 1.0-4.0 Blood monocytes automated count (number/volume) 0.1 10*3 0.0-1.0 Automated eosinophil count 0.0 10*3/uL 0.0-0.3 Automated blood basophil count (count/volume) 0.0 10*3/uL 0.0-0.1 Comprehensive metabolic panel - 06/25/17 03:49 Serum or plasma sodium measurement (moles/volume) 136 mmol/L 135-145 Serum or plasma potassium measurement (moles/volume) 4.4 mmol/L 3.6-5.0 Serum or plasma chloride measurement (moles/volume) 103 mmol/L 98-107 Carbon dioxide 22 mmol/L 21-32 Serum or plasma anion gap determination (moles/volume) 11 mmol/L 5-14 Serum or plasma urea nitrogen measurement (mass/volume) 13 mg/dL 7-18 Serum or plasma creatinine measurement (mass/volume) 0.69 mg/dL 0.60-1.30 Serum or plasma urea nitrogen/creatinine mass ratio 19 NRG Serum or plasma creatinine measurement with calculation of estimated glomerular filtration rate > NRG Serum or plasma glucose measurement (mass/volume) 147 mg/dL 70-105 Serum or plasma calcium measurement (mass/volume) 9.3 mg/dL 8.5-10.1 Serum or plasma total bilirubin measurement (mass/volume) 0.3 mg/dL 0.1-1.0 Serum or plasma alkaline phosphatase measurement (enzymatic activity/volume) 58 U/L 40-136 Serum or plasma aspartate aminotransferase measurement (enzymatic activity/ volume) 16 U/L 5-34 Serum or plasma alanine aminotransferase measurement (enzymatic activity/volume ) 16 U/L 0-55 Serum or plasma protein measurement (mass/volume) 6.7 g/dL 6.4-8.2 Serum or plasma albumin measurement (mass/volume) 3.9 g/dL 3.2-4.5 Complete blood count (CBC) with automated white blood cell (WBC) differential - 06/26/17 03:35 Blood leukocytes automated count (number/volume) 9.8 10*3/uL 4.3-11.0 Blood erythrocytes automated count (number/volume) 4.15 10*6/uL 4.35-5.85 Venous blood hemoglobin measurement (mass/volume) 11.2 g/dL 11.5-16.0 Blood hematocrit (volume fraction) 35 % 35-52 Automated erythrocyte mean corpuscular volume 84 [foz_us] 80-99 Automated erythrocyte mean corpuscular hemoglobin (mass per erythrocyte) 27 pg 25-34 Automated erythrocyte mean corpuscular hemoglobin concentration measurement ( mass/volume) 32 g/dL 32-36 Automated erythrocyte distribution width ratio 19.2 % 10.0-14.5 Automated blood platelet count (count/volume) 405 10*3/uL 130-400 Automated blood platelet mean volume measurement 9.2 [foz_us] 7.4-10.4 Automated blood neutrophils/100 leukocytes 87 % 42-75 Automated blood lymphocytes/100 leukocytes 4 % 12-44 Blood monocytes/100 leukocytes 8 % 0-12 Automated blood eosinophils/100 leukocytes 0 % 0-10 Automated blood basophils/100 leukocytes 0 % 0-10 Blood neutrophils automated count (number/volume) 8.5 10*3 1.8-7.8 Blood lymphocytes automated count (number/volume) 0.4 10*3 1.0-4.0 Blood monocytes automated count (number/volume) 0.8 10*3 0.0-1.0 Automated eosinophil count 0.0 10*3/uL 0.0-0.3 Automated blood basophil count (count/volume) 0.0 10*3/uL 0.0-0.1 Whole blood basic metabolic panel - 06/26/17 03:35 Serum or plasma sodium measurement (moles/volume) 136 mmol/L 135-145 Serum or plasma potassium measurement (moles/volume) 4.4 mmol/L 3.6-5.0 Serum or plasma chloride measurement (moles/volume) 106 mmol/L 98-107 Carbon dioxide 22 mmol/L 21-32 Serum or plasma anion gap determination (moles/volume) 8 mmol/L 5-14 Serum or plasma urea nitrogen measurement (mass/volume) 17 mg/dL 7-18 Serum or plasma creatinine measurement (mass/volume) 0.64 mg/dL 0.60-1.30 Serum or plasma urea nitrogen/creatinine mass ratio 27 NRG Serum or plasma creatinine measurement with calculation of estimated glomerular filtration rate > NRG Serum or plasma glucose measurement (mass/volume) 156 mg/dL 70-105 Serum or plasma calcium measurement (mass/volume) 8.6 mg/dL 8.5-10.1 Magnesium - 06/26/17 03:35 Magnesium 2.1 mg/dL 1.8-2.4 Complete blood count (CBC) with automated white blood cell (WBC) differential - 06/27/17 03:15 Blood leukocytes automated count (number/volume) 12.6 10*3/uL 4.3-11.0 Blood erythrocytes automated count (number/volume) 4.04 10*6/uL 4.35-5.85 Venous blood hemoglobin measurement (mass/volume) 10.9 g/dL 11.5-16.0 Blood hematocrit (volume fraction) 34 % 35-52 Automated erythrocyte mean corpuscular volume 84 [foz_us] 80-99 Automated erythrocyte mean corpuscular hemoglobin (mass per erythrocyte) 27 pg 25-34 Automated erythrocyte mean corpuscular hemoglobin concentration measurement ( mass/volume) 32 g/dL 32-36 Automated erythrocyte distribution width ratio 18.8 % 10.0-14.5 Automated blood platelet count (count/volume) 372 10*3/uL 130-400 Automated blood platelet mean volume measurement 9.3 [foz_us] 7.4-10.4 Automated blood neutrophils/100 leukocytes 91 % 42-75 Automated blood lymphocytes/100 leukocytes 4 % 12-44 Blood monocytes/100 leukocytes 4 % 0-12 Automated blood eosinophils/100 leukocytes 0 % 0-10 Automated blood basophils/100 leukocytes 0 % 0-10 Blood neutrophils automated count (number/volume) 11.5 10*3 1.8-7.8 Blood lymphocytes automated count (number/volume) 0.5 10*3 1.0-4.0 Blood monocytes automated count (number/volume) 0.6 10*3 0.0-1.0 Automated eosinophil count 0.0 10*3/uL 0.0-0.3 Automated blood basophil count (count/volume) 0.0 10*3/uL 0.0-0.1 Whole blood basic metabolic panel - 06/27/17 03:15 Serum or plasma sodium measurement (moles/volume) 137 mmol/L 135-145 Serum or plasma potassium measurement (moles/volume) 4.4 mmol/L 3.6-5.0 Serum or plasma chloride measurement (moles/volume) 107 mmol/L 98-107 Carbon dioxide 22 mmol/L 21-32 Serum or plasma anion gap determination (moles/volume) 8 mmol/L 5-14 Serum or plasma urea nitrogen measurement (mass/volume) 26 mg/dL 7-18 Serum or plasma creatinine measurement (mass/volume) 0.62 mg/dL 0.60-1.30 Serum or plasma urea nitrogen/creatinine mass ratio 42 NRG Serum or plasma creatinine measurement with calculation of estimated glomerular filtration rate > NRG Serum or plasma glucose measurement (mass/volume) 135 mg/dL 70-105 Serum or plasma calcium measurement (mass/volume) 8.6 mg/dL 8.5-10.1 Magnesium - 06/27/17 03:15 Magnesium 2.2 mg/dL 1.8-2.4 Complete blood count (CBC) with automated white blood cell (WBC) differential - 06/29/17 05:38 Blood leukocytes automated count (number/volume) 11.6 10*3/uL 4.3-11.0 Blood erythrocytes automated count (number/volume) 4.26 10*6/uL 4.35-5.85 Venous blood hemoglobin measurement (mass/volume) 11.6 g/dL 11.5-16.0 Blood hematocrit (volume fraction) 36 % 35-52 Automated erythrocyte mean corpuscular volume 84 [foz_us] 80-99 Automated erythrocyte mean corpuscular hemoglobin (mass per erythrocyte) 27 pg 25-34 Automated erythrocyte mean corpuscular hemoglobin concentration measurement ( mass/volume) 33 g/dL 32-36 Automated erythrocyte distribution width ratio 18.2 % 10.0-14.5 Automated blood platelet count (count/volume) 374 10*3/uL 130-400 Automated blood platelet mean volume measurement 9.3 [foz_us] 7.4-10.4 Automated blood neutrophils/100 leukocytes 69 % 42-75 Automated blood lymphocytes/100 leukocytes 16 % 12-44 Blood monocytes/100 leukocytes 14 % 0-12 Automated blood eosinophils/100 leukocytes 0 % 0-10 Automated blood basophils/100 leukocytes 0 % 0-10 Blood neutrophils automated count (number/volume) 8.0 10*3 1.8-7.8 Blood lymphocytes automated count (number/volume) 1.8 10*3 1.0-4.0 Blood monocytes automated count (number/volume) 1.7 10*3 0.0-1.0 Automated eosinophil count 0.0 10*3/uL 0.0-0.3 Automated blood basophil count (count/volume) 0.0 10*3/uL 0.0-0.1 Comprehensive metabolic panel - 06/29/17 05:38 Serum or plasma sodium measurement (moles/volume) 137 mmol/L 135-145 Serum or plasma potassium measurement (moles/volume) 4.2 mmol/L 3.6-5.0 Serum or plasma chloride measurement (moles/volume) 102 mmol/L 98-107 Carbon dioxide 26 mmol/L 21-32 Serum or plasma anion gap determination (moles/volume) 9 mmol/L 5-14 Serum or plasma urea nitrogen measurement (mass/volume) 19 mg/dL 7-18 Serum or plasma creatinine measurement (mass/volume) 0.65 mg/dL 0.60-1.30 Serum or plasma urea nitrogen/creatinine mass ratio 29 NRG Serum or plasma creatinine measurement with calculation of estimated glomerular filtration rate > NRG Serum or plasma glucose measurement (mass/volume) 84 mg/dL 70-105 Serum or plasma calcium measurement (mass/volume) 8.9 mg/dL 8.5-10.1 Serum or plasma total bilirubin measurement (mass/volume) 0.2 mg/dL 0.1-1.0 Serum or plasma alkaline phosphatase measurement (enzymatic activity/volume) 40 U/L 40-136 Serum or plasma aspartate aminotransferase measurement (enzymatic activity/ volume) 17 U/L 5-34 Serum or plasma alanine aminotransferase measurement (enzymatic activity/volume ) 16 U/L 0-55 Serum or plasma protein measurement (mass/volume) 5.7 g/dL 6.4-8.2 Serum or plasma albumin measurement (mass/volume) 3.6 g/dL 3.2-4.5 Complete blood count (CBC) with automated white blood cell (WBC) differential - 09/08/17 18:05 Blood leukocytes automated count (number/volume) 18.1 10*3/uL 4.3-11.0 Blood erythrocytes automated count (number/volume) 4.13 10*6/uL 4.35-5.85 Venous blood hemoglobin measurement (mass/volume) 12.5 g/dL 11.5-16.0 Blood hematocrit (volume fraction) 38 % 35-52 Automated erythrocyte mean corpuscular volume 91 [foz_us] 80-99 Automated erythrocyte mean corpuscular hemoglobin (mass per erythrocyte) 30 pg 25-34 Automated erythrocyte mean corpuscular hemoglobin concentration measurement ( mass/volume) 33 g/dL 32-36 Automated erythrocyte distribution width ratio 12.9 % 10.0-14.5 Automated blood platelet count (count/volume) 335 10*3/uL 130-400 Automated blood platelet mean volume measurement 9.1 [foz_us] 7.4-10.4 Automated blood neutrophils/100 leukocytes 89 % 42-75 Automated blood lymphocytes/100 leukocytes 3 % 12-44 Blood monocytes/100 leukocytes 8 % 0-12 Automated blood eosinophils/100 leukocytes 0 % 0-10 Automated blood basophils/100 leukocytes 0 % 0-10 Blood neutrophils automated count (number/volume) 16.2 10*3 1.8-7.8 Blood lymphocytes automated count (number/volume) 0.5 10*3 1.0-4.0 Blood monocytes automated count (number/volume) 1.4 10*3 0.0-1.0 Automated eosinophil count 0.0 10*3/uL 0.0-0.3 Automated blood basophil count (count/volume) 0.0 10*3/uL 0.0-0.1 Comprehensive metabolic panel - 09/08/17 18:05 Serum or plasma sodium measurement (moles/volume) 132 mmol/L 135-145 Serum or plasma potassium measurement (moles/volume) 4.5 mmol/L 3.6-5.0 Serum or plasma chloride measurement (moles/volume) 99 mmol/L 98-107 Carbon dioxide 23 mmol/L 21-32 Serum or plasma anion gap determination (moles/volume) 10 mmol/L 5-14 Serum or plasma urea nitrogen measurement (mass/volume) 11 mg/dL 7-18 Serum or plasma creatinine measurement (mass/volume) 0.64 mg/dL 0.60-1.30 Serum or plasma urea nitrogen/creatinine mass ratio 17 NRG Serum or plasma creatinine measurement with calculation of estimated glomerular filtration rate > NRG Serum or plasma glucose measurement (mass/volume) 137 mg/dL 70-105 Serum or plasma calcium measurement (mass/volume) 9.5 mg/dL 8.5-10.1 Serum or plasma total bilirubin measurement (mass/volume) 0.7 mg/dL 0.1-1.0 Serum or plasma alkaline phosphatase measurement (enzymatic activity/volume) 57 U/L 40-136 Serum or plasma aspartate aminotransferase measurement (enzymatic activity/ volume) 15 U/L 5-34 Serum or plasma alanine aminotransferase measurement (enzymatic activity/volume ) 10 U/L 0-55 Serum or plasma protein measurement (mass/volume) 6.8 g/dL 6.4-8.2 Serum or plasma albumin measurement (mass/volume) 4.1 g/dL 3.2-4.5 Serum or plasma C reactive protein measurement (mass/volume) - 09/08/17 18:05 Serum or plasma C reactive protein measurement (mass/volume) 11.24 mg/dL 0.00-0.50 Magnesium - 09/08/17 18:05 Magnesium 1.8 mg/dL 1.8-2.4 Blood manual differential performed detection - 09/08/17 18:05 Blood monocytes/100 leukocytes 9 % NRG Manual blood segmented neutrophils/100 leukocytes 80 % NRG Blood band neutrophils/100 leukocytes 6 % NRG Manual blood lymphocytes/100 leukocytes 5 % NRG Blood erythrocyte morphology finding identification NORMAL NRG Arterial blood gas measurement - 09/08/17 18:12 Blood pCO2 44 mm[Hg] 35-45 Blood pO2 92 mm[Hg] 79-93 Arterial blood bicarbonate measurement (moles/volume) 25 mmol/L 23-27 Arterial blood base excess by calculation 0.5 mmol/L -2.5 -2.5 Arterial blood oxygen saturation measurement 98 % 94-100 * Inhaled oxygen flow rate 3L NRG Arterial blood pH measurement with patient temperature correction 7.38 7.37-7.43 Arterial blood carbon dioxide, total measurement (moles/volume) 26.3 mmol/L 21.0-31.0 Body site LT RAD NRG Assessment of wrist artery patency prior to arterial puncture YES- POS NRG Setting of ventilation mode NO NRG Measurement of body temperature 99.0 NRG Blood lactic acid measurement (moles/volume) - 09/08/17 18:44 Blood lactic acid measurement (moles/volume) 0.91 mmol/L 0.50-2.00 Bacterial blood culture - 09/08/17 19:10 Bacterial blood culture NG NRG Bacterial blood culture - 09/08/17 19:22 Bacterial blood culture NG NRG Arterial blood gas measurement - 09/08/17 22:29 Blood pCO2 54 mm[Hg] 35-45 Blood pO2 101 mm[Hg] 79-93 Arterial blood bicarbonate measurement (moles/volume) 26 mmol/L 23-27 Arterial blood base excess by calculation 0.5 mmol/L -2.5 -2.5 Arterial blood oxygen saturation measurement 98 % 94-100 * Inhaled oxygen flow rate 4L NRG Arterial blood pH measurement with patient temperature correction 7.30 7.37-7.43 Arterial blood carbon dioxide, total measurement (moles/volume) 27.6 mmol/L 21.0-31.0 Body site R RAD NRG Assessment of wrist artery patency prior to arterial puncture YES- POS NRG Setting of ventilation mode NO NRG Measurement of body temperature 99.2 NRG Arterial blood gas measurement - 09/09/17 04:05 Blood pCO2 63 mm[Hg] 35-45 Blood pO2 128 mm[Hg] 79-93 Arterial blood bicarbonate measurement (moles/volume) 23 mmol/L 23-27 Arterial blood base excess by calculation -4.6 mmol/L - 2.5-2.5 Arterial blood oxygen saturation measurement 99 % 94-100 * Inhaled oxygen flow rate 40% BIPAP NRG Arterial blood pH measurement with patient temperature correction 7.18 7.37-7.43 Arterial blood carbon dioxide, total measurement (moles/volume) 24.7 mmol/L 21.0-31.0 Body site R RAD NRG Assessment of wrist artery patency prior to arterial puncture YES- POS NRG Setting of ventilation mode NO NRG Measurement of body temperature 97.3 NRG Complete blood count (CBC) with automated white blood cell (WBC) differential - 09/09/17 04:28 Blood leukocytes automated count (number/volume) 13.0 10*3/uL 4.3-11.0 Blood erythrocytes automated count (number/volume) 4.10 10*6/uL 4.35-5.85 Venous blood hemoglobin measurement (mass/volume) 12.5 g/dL 11.5-16.0 Blood hematocrit (volume fraction) 38 % 35-52 Automated erythrocyte mean corpuscular volume 92 [foz_us] 80-99 Automated erythrocyte mean corpuscular hemoglobin (mass per erythrocyte) 30 pg 25-34 Automated erythrocyte mean corpuscular hemoglobin concentration measurement ( mass/volume) 33 g/dL 32-36 Automated erythrocyte distribution width ratio 12.7 % 10.0-14.5 Automated blood platelet count (count/volume) 334 10*3/uL 130-400 Automated blood platelet mean volume measurement 8.9 [foz_us] 7.4-10.4 Automated blood neutrophils/100 leukocytes 97 % 42-75 Automated blood lymphocytes/100 leukocytes 3 % 12-44 Blood monocytes/100 leukocytes 1 % 0-12 Automated blood eosinophils/100 leukocytes 0 % 0-10 Automated blood basophils/100 leukocytes 0 % 0-10 Blood neutrophils automated count (number/volume) 12.5 10*3 1.8-7.8 Blood lymphocytes automated count (number/volume) 0.3 10*3 1.0-4.0 Blood monocytes automated count (number/volume) 0.1 10*3 0.0-1.0 Automated eosinophil count 0.0 10*3/uL 0.0-0.3 Automated blood basophil count (count/volume) 0.0 10*3/uL 0.0-0.1 Comprehensive metabolic panel - 09/09/17 04:28 Serum or plasma sodium measurement (moles/volume) 139 mmol/L 135-145 Serum or plasma potassium measurement (moles/volume) 4.6 mmol/L 3.6-5.0 Serum or plasma chloride measurement (moles/volume) 104 mmol/L 98-107 Carbon dioxide 20 mmol/L 21-32 Serum or plasma anion gap determination (moles/volume) 15 mmol/L 5-14 Serum or plasma urea nitrogen measurement (mass/volume) 13 mg/dL 7-18 Serum or plasma creatinine measurement (mass/volume) 0.76 mg/dL 0.60-1.30 Serum or plasma urea nitrogen/creatinine mass ratio 17 NRG Serum or plasma creatinine measurement with calculation of estimated glomerular filtration rate > NRG Serum or plasma glucose measurement (mass/volume) 186 mg/dL 70-105 Serum or plasma calcium measurement (mass/volume) 9.6 mg/dL 8.5-10.1 Serum or plasma total bilirubin measurement (mass/volume) 0.4 mg/dL 0.1-1.0 Serum or plasma alkaline phosphatase measurement (enzymatic activity/volume) 62 U/L 40-136 Serum or plasma aspartate aminotransferase measurement (enzymatic activity/ volume) 15 U/L 5-34 Serum or plasma alanine aminotransferase measurement (enzymatic activity/volume ) 12 U/L 0-55 Serum or plasma protein measurement (mass/volume) 7.1 g/dL 6.4-8.2 Serum or plasma albumin measurement (mass/volume) 4.2 g/dL 3.2-4.5 Serum or plasma phosphate measurement (mass/volume) - 09/09/17 04:28 Serum or plasma phosphate measurement (mass/volume) 4.3 mg/dL 2.3-4.7 Magnesium - 09/09/17 04:28 Magnesium 2.3 mg/dL 1.8-2.4 Arterial blood gas measurement - 09/09/17 10:20 Blood pCO2 49 mm[Hg] 35-45 Blood pO2 121 mm[Hg] 79-93 Arterial blood bicarbonate measurement (moles/volume) 25 mmol/L 23-27 Arterial blood base excess by calculation -0.5 mmol/L - 2.5-2.5 Arterial blood oxygen saturation measurement 99 % 94-100 * Inhaled oxygen flow rate 35% NRG Arterial blood pH measurement with patient temperature correction 7.32 7.37-7.43 Arterial blood carbon dioxide, total measurement (moles/volume) 26.5 mmol/L 21.0-31.0 Body site LT RAD NRG Assessment of wrist artery patency prior to arterial puncture YES- POS NRG Setting of ventilation mode NO NRG Measurement of body temperature 97.3 NRG Complete blood count (CBC) with automated white blood cell (WBC) differential - 09/10/17 03:05 Blood leukocytes automated count (number/volume) 13.8 10*3/uL 4.3-11.0 Blood erythrocytes automated count (number/volume) 3.80 10*6/uL 4.35-5.85 Venous blood hemoglobin measurement (mass/volume) 11.6 g/dL 11.5-16.0 Blood hematocrit (volume fraction) 35 % 35-52 Automated erythrocyte mean corpuscular volume 93 [foz_us] 80-99 Automated erythrocyte mean corpuscular hemoglobin (mass per erythrocyte) 31 pg 25-34 Automated erythrocyte mean corpuscular hemoglobin concentration measurement ( mass/volume) 33 g/dL 32-36 Automated erythrocyte distribution width ratio 12.5 % 10.0-14.5 Automated blood platelet count (count/volume) 319 10*3/uL 130-400 Automated blood platelet mean volume measurement 9.7 [foz_us] 7.4-10.4 Automated blood neutrophils/100 leukocytes 92 % 42-75 Automated blood lymphocytes/100 leukocytes 3 % 12-44 Blood monocytes/100 leukocytes 6 % 0-12 Automated blood eosinophils/100 leukocytes 0 % 0-10 Automated blood basophils/100 leukocytes 0 % 0-10 Blood neutrophils automated count (number/volume) 12.7 10*3 1.8-7.8 Blood lymphocytes automated count (number/volume) 0.4 10*3 1.0-4.0 Blood monocytes automated count (number/volume) 0.8 10*3 0.0-1.0 Automated eosinophil count 0.0 10*3/uL 0.0-0.3 Automated blood basophil count (count/volume) 0.0 10*3/uL 0.0-0.1 Whole blood basic metabolic panel - 09/10/17 03:05 Serum or plasma sodium measurement (moles/volume) 140 mmol/L 135-145 Serum or plasma potassium measurement (moles/volume) 4.5 mmol/L 3.6-5.0 Serum or plasma chloride measurement (moles/volume) 107 mmol/L 98-107 Carbon dioxide 24 mmol/L 21-32 Serum or plasma anion gap determination (moles/volume) 9 mmol/L 5-14 Serum or plasma urea nitrogen measurement (mass/volume) 32 mg/dL 7-18 Serum or plasma creatinine measurement (mass/volume) 0.67 mg/dL 0.60-1.30 Serum or plasma urea nitrogen/creatinine mass ratio 48 NRG Serum or plasma creatinine measurement with calculation of estimated glomerular filtration rate > NRG Serum or plasma glucose measurement (mass/volume) 151 mg/dL 70-105 Serum or plasma calcium measurement (mass/volume) 9.5 mg/dL 8.5-10.1 Serum or plasma phosphate measurement (mass/volume) - 09/10/17 03:05 Serum or plasma phosphate measurement (mass/volume) 2.7 mg/dL 2.3-4.7 Magnesium - 09/10/17 03:05 Magnesium 2.4 mg/dL 1.8-2.4 Arterial blood gas measurement - 09/10/17 03:18 Blood pCO2 48 mm[Hg] 35-45 Blood pO2 112 mm[Hg] 79-93 Arterial blood bicarbonate measurement (moles/volume) 26 mmol/L 23-27 Arterial blood base excess by calculation 1.0 mmol/L -2.5 -2.5 Arterial blood oxygen saturation measurement 99 % 94-100 * Inhaled oxygen flow rate 30% BIPAP NRG Arterial blood pH measurement with patient temperature correction 7.35 7.37-7.43 Arterial blood carbon dioxide, total measurement (moles/volume) 27.8 mmol/L 21.0-31.0 Body site R RAD NRG Assessment of wrist artery patency prior to arterial puncture YES- POS NRG Setting of ventilation mode NO NRG Measurement of body temperature 96.1 NRG Arterial blood gas measurement - 09/11/17 03:10 Blood pCO2 48 mm[Hg] 35-45 Blood pO2 101 mm[Hg] 79-93 Arterial blood bicarbonate measurement (moles/volume) 28 mmol/L 23-27 Arterial blood base excess by calculation 2.7 mmol/L -2.5 -2.5 Arterial blood oxygen saturation measurement 98 % 94-100 * Inhaled oxygen flow rate 30% NRG Arterial blood pH measurement with patient temperature correction 7.37 7.37-7.43 Arterial blood carbon dioxide, total measurement (moles/volume) 29.2 mmol/L 21.0-31.0 Body site LEFT RADIAL NRG Assessment of wrist artery patency prior to arterial puncture YES- POS NRG Setting of ventilation mode NO NRG Measurement of body temperature 97.0 NRG Complete blood count (CBC) with automated white blood cell (WBC) differential - 09/11/17 03:32 Blood leukocytes automated count (number/volume) 14.5 10*3/uL 4.3-11.0 Blood erythrocytes automated count (number/volume) 3.81 10*6/uL 4.35-5.85 Venous blood hemoglobin measurement (mass/volume) 11.5 g/dL 11.5-16.0 Blood hematocrit (volume fraction) 35 % 35-52 Automated erythrocyte mean corpuscular volume 93 [foz_us] 80-99 Automated erythrocyte mean corpuscular hemoglobin (mass per erythrocyte) 30 pg 25-34 Automated erythrocyte mean corpuscular hemoglobin concentration measurement ( mass/volume) 33 g/dL 32-36 Automated erythrocyte distribution width ratio 12.4 % 10.0-14.5 Automated blood platelet count (count/volume) 350 10*3/uL 130-400 Automated blood platelet mean volume measurement 9.6 [foz_us] 7.4-10.4 Automated blood neutrophils/100 leukocytes 94 % 42-75 Automated blood lymphocytes/100 leukocytes 3 % 12-44 Blood monocytes/100 leukocytes 3 % 0-12 Automated blood eosinophils/100 leukocytes 0 % 0-10 Automated blood basophils/100 leukocytes 0 % 0-10 Blood neutrophils automated count (number/volume) 13.7 10*3 1.8-7.8 Blood lymphocytes automated count (number/volume) 0.4 10*3 1.0-4.0 Blood monocytes automated count (number/volume) 0.5 10*3 0.0-1.0 Automated eosinophil count 0.0 10*3/uL 0.0-0.3 Automated blood basophil count (count/volume) 0.0 10*3/uL 0.0-0.1 Whole blood basic metabolic panel - 09/11/17 03:32 Serum or plasma sodium measurement (moles/volume) 138 mmol/L 135-145 Serum or plasma potassium measurement (moles/volume) 4.6 mmol/L 3.6-5.0 Serum or plasma chloride measurement (moles/volume) 104 mmol/L 98-107 Carbon dioxide 24 mmol/L 21-32 Serum or plasma anion gap determination (moles/volume) 10 mmol/L 5-14 Serum or plasma urea nitrogen measurement (mass/volume) 29 mg/dL 7-18 Serum or plasma creatinine measurement (mass/volume) 0.69 mg/dL 0.60-1.30 Serum or plasma urea nitrogen/creatinine mass ratio 42 NRG Serum or plasma creatinine measurement with calculation of estimated glomerular filtration rate > NRG Serum or plasma glucose measurement (mass/volume) 149 mg/dL 70-105 Serum or plasma calcium measurement (mass/volume) 9.4 mg/dL 8.5-10.1 Serum or plasma phosphate measurement (mass/volume) - 09/11/17 03:32 Serum or plasma phosphate measurement (mass/volume) 3.3 mg/dL 2.3-4.7 Magnesium - 09/11/17 03:32 Magnesium 2.6 mg/dL 1.8-2.4 Complete blood count (CBC) with automated white blood cell (WBC) differential - 09/12/17 03:05 Blood leukocytes automated count (number/volume) 11.8 10*3/uL 4.3-11.0 Blood erythrocytes automated count (number/volume) 3.85 10*6/uL 4.35-5.85 Venous blood hemoglobin measurement (mass/volume) 11.6 g/dL 11.5-16.0 Blood hematocrit (volume fraction) 35 % 35-52 Automated erythrocyte mean corpuscular volume 91 [foz_us] 80-99 Automated erythrocyte mean corpuscular hemoglobin (mass per erythrocyte) 30 pg 25-34 Automated erythrocyte mean corpuscular hemoglobin concentration measurement ( mass/volume) 33 g/dL 32-36 Automated erythrocyte distribution width ratio 12.3 % 10.0-14.5 Automated blood platelet count (count/volume) 364 10*3/uL 130-400 Automated blood platelet mean volume measurement 9.6 [foz_us] 7.4-10.4 Automated blood neutrophils/100 leukocytes 93 % 42-75 Automated blood lymphocytes/100 leukocytes 3 % 12-44 Blood monocytes/100 leukocytes 5 % 0-12 Automated blood eosinophils/100 leukocytes 0 % 0-10 Automated blood basophils/100 leukocytes 0 % 0-10 Blood neutrophils automated count (number/volume) 10.9 10*3 1.8-7.8 Blood lymphocytes automated count (number/volume) 0.3 10*3 1.0-4.0 Blood monocytes automated count (number/volume) 0.5 10*3 0.0-1.0 Automated eosinophil count 0.0 10*3/uL 0.0-0.3 Automated blood basophil count (count/volume) 0.0 10*3/uL 0.0-0.1 Whole blood basic metabolic panel - 09/12/17 03:05 Serum or plasma sodium measurement (moles/volume) 136 mmol/L 135-145 Serum or plasma potassium measurement (moles/volume) 4.5 mmol/L 3.6-5.0 Serum or plasma chloride measurement (moles/volume) 103 mmol/L 98-107 Carbon dioxide 24 mmol/L 21-32 Serum or plasma anion gap determination (moles/volume) 9 mmol/L 5-14 Serum or plasma urea nitrogen measurement (mass/volume) 23 mg/dL 7-18 Serum or plasma creatinine measurement (mass/volume) 0.65 mg/dL 0.60-1.30 Serum or plasma urea nitrogen/creatinine mass ratio 35 NRG Serum or plasma creatinine measurement with calculation of estimated glomerular filtration rate > NRG Serum or plasma glucose measurement (mass/volume) 137 mg/dL 70-105 Serum or plasma calcium measurement (mass/volume) 9.2 mg/dL 8.5-10.1 Serum or plasma phosphate measurement (mass/volume) - 09/12/17 03:05 Serum or plasma phosphate measurement (mass/volume) 3.0 mg/dL 2.3-4.7 Magnesium - 09/12/17 03:05 Magnesium 2.3 mg/dL 1.8-2.4 Whole blood basic metabolic panel - 09/13/17 04:30 Serum or plasma sodium measurement (moles/volume) 139 mmol/L 135-145 Serum or plasma potassium measurement (moles/volume) 4.6 mmol/L 3.6-5.0 Serum or plasma chloride measurement (moles/volume) 104 mmol/L 98-107 Carbon dioxide 25 mmol/L -32 Serum or plasma anion gap determination (moles/volume) 10 mmol/L 5-14 Serum or plasma urea nitrogen measurement (mass/volume) 22 mg/dL 7-18 Serum or plasma creatinine measurement (mass/volume) 0.63 mg/dL 0.60-1.30 Serum or plasma urea nitrogen/creatinine mass ratio 35 NRG Serum or plasma creatinine measurement with calculation of estimated glomerular filtration rate > NRG Serum or plasma glucose measurement (mass/volume) 132 mg/dL 70-105 Serum or plasma calcium measurement (mass/volume) 9.1 mg/dL 8.5-10.1 CBC - 09/27/17 14:42 WHITE BLOOD CELL COUNT 18.7 Thousand/uL 3.8-10.8 RED BLOOD CELL COUNT 4.15 Million/uL 3.80-5.10 HEMOGLOBIN 12.4 g/dL 11.7-15.5 HEMATOCRIT 37.8 % 35.0-45.0 MCV 91.1 fL 80.0-100.0 MCH 29.9 pg 27.0-33.0 MCHC 32.8 g/dL 32.0-36.0 RDW 12.2 % 11.0-15.0 PLATELET COUNT 353 Thousand/uL 140-400 MPV 9.3 fL 7.5-12.5 ABSOLUTE NEUTROPHILS 64904 cells/uL 9454-2041 ABSOLUTE LYMPHOCYTES 580 cells/uL 850-3900 ABSOLUTE MONOCYTES 954 cells/uL 200-950 ABSOLUTE EOSINOPHILS 56 cells/uL 15-500 ABSOLUTE BASOPHILS 94 cells/uL 0-200 NEUTROPHILS 91 % NRG LYMPHOCYTES 3.1 % NRG MONOCYTES 5.1 % NRG EOSINOPHILS 0.3 % NRG BASOPHILS 0.5 % NRG PDM - 09 PANEL (PROFILE 1) - 11/27/17 14:50 Prescribed Drug 1 Ativan(TM) NRG Creatinine 42.6 mg/dL > or=20.0 pH 7.33 4.5 - 9.0 Oxidant NEGATIVE mcg/mL <200 Amphetamines NEGATIVE ng/mL <500 medMATCH Amphetamines CONSISTENT NRG Benzodiazepines POSITIVE ng/mL <100 Marijuana Metabolite NEGATIVE ng/mL <20 medMATCH Marijuana Metab CONSISTENT NRG Cocaine Metabolite NEGATIVE ng/mL <150 medMATCH Cocaine Metab CONSISTENT NRG Opiates NEGATIVE CONFIRMED ng/mL <100 Oxycodone NEGATIVE ng/mL <100 medMATCH Oxycodone CONSISTENT NRG COMMENT NRG Alphahydroxyalprazolam NEGATIVE ng/mL <25 medMATCH aOH alprazolam CONSISTENT NRG Alphahydroxymidazolam NEGATIVE ng/mL <50 medMATCH aOH midazolam CONSISTENT NRG Alphahydroxytriazolam NEGATIVE ng/mL <50 medMATCH aOH triazolam CONSISTENT NRG Aminoclonazepam NEGATIVE ng/mL <25 medMATCH Aminoclonazepam CONSISTENT NRG Hydroxyethylflurazepam NEGATIVE ng/mL <50 medMATCH OH,Et flurazepam CONSISTENT NRG Lorazepam 743 ng/mL <50 medMATCH Lorazepam CONSISTENT NRG Nordiazepam NEGATIVE ng/mL <50 medMATCH Nordiazepam CONSISTENT NRG Oxazepam NEGATIVE ng/mL <50 medMATCH Oxazepam CONSISTENT NRG Temazepam NEGATIVE ng/mL <50 medMATCH Temazepam CONSISTENT NRG Codeine NEGATIVE ng/mL <50 medMATCH Codeine CONSISTENT NRG Hydrocodone NEGATIVE ng/mL <50 medMATCH Hydrocodone CONSISTENT NRG Hydromorphone NEGATIVE ng/mL <50 medMATCH Hydromorphone CONSISTENT NRG Morphine NEGATIVE ng/mL <50 medMATCH Morphine CONSISTENT NRG Norhydrocodone NEGATIVE ng/mL <50 medMATCH Norhydrocodone CONSISTENT NRG Barbiturates NEGATIVE ng/mL <300 medMATCH Barbiturates CONSISTENT NRG Methadone Metabolite NEGATIVE ng/mL <100 medMATCH Methadone Metab CONSISTENT NRG Phencyclidine NEGATIVE ng/mL <25 medMATCH Phencyclidine CONSISTENT NRG CMP - 12/04/17 13:49 GLUCOSE 91 mg/dL 65-99 UREA NITROGEN (BUN) 15 mg/dL 7-25 CREATININE 0.70 mg/dL 0.50-0.99 eGFR NON-AFR. SERBIAN 90 mL/min/1.73m2 > OR=60 eGFR 104 mL/min/1.73m2 > OR=60 BUN/CREATININE RATIO NOT APPLICABLE (calc) 6-22 SODIUM 139 mmol/L 135-146 POTASSIUM 4.6 mmol/L 3.5-5.3 CHLORIDE 103 mmol/L 98-110 CARBON DIOXIDE 29 mmol/L 20-32 CALCIUM 9.4 mg/dL 8.6-10.4 PROTEIN, TOTAL 6.4 g/dL 6.1-8.1 ALBUMIN 4.2 g/dL 3.6-5.1 GLOBULIN 2.2 g/dL (calc) 1.9-3.7 ALBUMIN/GLOBULIN RATIO 1.9 (calc) 1.0-2.5 BILIRUBIN, TOTAL 0.4 mg/dL 0.2-1.2 ALKALINE PHOSPHATASE 65 U/L 33-130 AST 14 U/L 10-35 ALT 10 U/L 6-29 Blood lactic acid measurement (moles/volume) - 12/29/17 22:40 Blood lactic acid measurement (moles/volume) 2.61 mmol/L 0.50-2.00 Complete blood count (CBC) with automated white blood cell (WBC) differential - 12/29/17 22:40 Blood leukocytes automated count (number/volume) 14.9 10*3/uL 4.3-11.0 Blood erythrocytes automated count (number/volume) 4.50 10*6/uL 4.35-5.85 Venous blood hemoglobin measurement (mass/volume) 13.6 g/dL 11.5-16.0 Blood hematocrit (volume fraction) 41 % 35-52 Automated erythrocyte mean corpuscular volume 90 [foz_us] 80-99 Automated erythrocyte mean corpuscular hemoglobin (mass per erythrocyte) 30 pg 25-34 Automated erythrocyte mean corpuscular hemoglobin concentration measurement ( mass/volume) 34 g/dL 32-36 Automated erythrocyte distribution width ratio 12.7 % 10.0-14.5 Automated blood platelet count (count/volume) 392 10*3/uL 130-400 Automated blood platelet mean volume measurement 9.3 [foz_us] 7.4-10.4 Automated blood neutrophils/100 leukocytes 76 % 42-75 Automated blood lymphocytes/100 leukocytes 11 % 12-44 Blood monocytes/100 leukocytes 12 % 0-12 Automated blood eosinophils/100 leukocytes 1 % 0-10 Automated blood basophils/100 leukocytes 0 % 0-10 Blood neutrophils automated count (number/volume) 11.3 10*3 1.8-7.8 Blood lymphocytes automated count (number/volume) 1.6 10*3 1.0-4.0 Blood monocytes automated count (number/volume) 1.8 10*3 0.0-1.0 Automated eosinophil count 0.2 10*3/uL 0.0-0.3 Automated blood basophil count (count/volume) 0.1 10*3/uL 0.0-0.1 Comprehensive metabolic panel - 12/29/17 22:40 Serum or plasma sodium measurement (moles/volume) 137 mmol/L 135-145 Serum or plasma potassium measurement (moles/volume) 4.9 mmol/L 3.6-5.0 Serum or plasma chloride measurement (moles/volume) 99 mmol/L 98-107 Carbon dioxide 23 mmol/L 21-32 Serum or plasma anion gap determination (moles/volume) 15 mmol/L 5-14 Serum or plasma urea nitrogen measurement (mass/volume) 14 mg/dL 7-18 Serum or plasma creatinine measurement (mass/volume) 0.74 mg/dL 0.60-1.30 Serum or plasma urea nitrogen/creatinine mass ratio 19 NRG Serum or plasma creatinine measurement with calculation of estimated glomerular filtration rate > NRG Serum or plasma glucose measurement (mass/volume) 178 mg/dL 70-105 Serum or plasma calcium measurement (mass/volume) 9.4 mg/dL 8.5-10.1 Serum or plasma total bilirubin measurement (mass/volume) 0.4 mg/dL 0.1-1.0 Serum or plasma alkaline phosphatase measurement (enzymatic activity/volume) 67 U/L 40-136 Serum or plasma aspartate aminotransferase measurement (enzymatic activity/ volume) 20 U/L 5-34 Serum or plasma alanine aminotransferase measurement (enzymatic activity/volume ) 15 U/L 0-55 Serum or plasma protein measurement (mass/volume) 7.1 g/dL 6.4-8.2 Serum or plasma albumin measurement (mass/volume) 4.2 g/dL 3.2-4.5 CALCIUM CORRECTED 9.2 mg/dL 8.5-10.1 Serum or plasma C reactive protein measurement (mass/volume) - 12/29/17 22:40 Serum or plasma C reactive protein measurement (mass/volume) 1.46 mg /dL 0.00-0.50 Blood manual differential performed detection - 12/29/17 22:40 Blood monocytes/100 leukocytes 9 % NRG Manual blood segmented neutrophils/100 leukocytes 71 % NRG Blood band neutrophils/100 leukocytes 0 % NRG Manual blood lymphocytes/100 leukocytes 15 % NRG Manual eosinophils/100 leukocytes in nose 4 % NRG Manual blood basophils/100 leukocytes 1 % NRG Blood erythrocyte morphology finding identification NORMAL NRG Arterial blood gas measurement - 12/29/17 23:26 Blood pCO2 60 mm[Hg] 35-45 Blood pO2 89 mm[Hg] 79-93 Arterial blood bicarbonate measurement (moles/volume) 30 mmol/L 23-27 Arterial blood base excess by calculation 4.1 mmol/L -2.5 -2.5 Arterial blood oxygen saturation measurement 97 % 94-100 * Inhaled oxygen flow rate 50% NRG Arterial blood pH measurement with patient temperature correction 7.32 7.37-7.43 Arterial blood carbon dioxide, total measurement (moles/volume) 31.9 mmol/L 21.0-31.0 Body site RT RADIAL NRG Assessment of wrist artery patency prior to arterial puncture POSITIVE NRG Setting of ventilation mode YES NRG Measurement of body temperature 97.4 NRG Encounters ACCT No. Visit Date/Time Discharge Status Pt. Type Provider Facility Loc./Unit Complaint [id number] 06/25/2014 13:48:00 06/25/2014 23:59:59 CLS Outpatient ОЛЕГ KWON MD [id number] 05/29/2014 10:07:00 05/29/2014 23:59:59 CLS Outpatient BLAS RENEE APRN A [id number] 03/28/2014 11:04:00 03/28/2014 23:59:59 CLS Outpatient CASEY SIMPSON APRN S [id number] 02/24/2014 08:58:00 02/24/2014 23:59:59 CLS Outpatient TATIANA BENTLEYNALICEA S [id number] 01/01/2014 14:08:00 01/01/2014 23:59:59 CLS Outpatient TATIANA BENTLEYNALICEA S [id number] 07/25/2013 16:04:00 07/25/2013 23:59:59 CLS Outpatient SHANA YORK MD [id number] 06/26/2013 14:02:00 06/26/2013 23:59:59 CLS Outpatient BLAS RENEE APRN A [id number] 06/18/2013 09:54:00 06/18/2013 23:59:59 CLS Outpatient ALICE SIMPSON APRNA S [id number] 05/22/2013 09:34:00 05/22/2013 23:59:59 CLS Outpatient BLAS RENEE APRN A [id number] 03/26/2013 08:56:00 03/26/2013 23:59:59 CLS Outpatient ALICE SIMPSON APRNA S [id number] 03/12/2013 08:49:00 03/12/2013 23:59:59 CLS Outpatient ALICE SIMPSON APRNA S [id number] 11/01/2012 15:55:00 11/01/2012 23:59:59 CLS Outpatient DANYA GAO MD [id number] 04/19/2012 16:25:00 04/19/2012 23:59:59 CLS Outpatient TATIANA BENTLEYNALICEA S [id number] 04/03/2012 09:41:00 04/03/2012 23:59:59 CLS Outpatient TATIANA BENTLEYNALICEA S [id number] 10/31/2012 08:39:00 Document Registration [id number] 09/14/2012 10:05:00 Document Registration [id number] 08/20/2012 08:31:00 Document Registration [id number] 07/30/2012 13:10:00 Document Registration [id number] 12/15/2016 13:05:00 Document Registration [id number] 12/21/2016 16:07:00 Document Registration [id number] 09/22/2016 08:06:00 Document Registration [id number] 08/03/2016 13:05:00 Document Registration [id number] 10/11/2017 11:20:00 10/11/2017 23:59:59 CLS Outpatient CASEY SIMPSON APRN [facility] [id number] 12/04/2017 13:40:00 Document Registration [id number] 11/27/2017 14:00:00 Document Registration [id number] 09/27/2017 13:40:00 Document Registration [id number] 06/15/2017 13:50:00 Document Registration [id number] 05/03/2017 15:40:00 Document Registration [id number] 12/20/2016 13:20:00 Document Registration [id number] 12/14/2016 16:20:00 Document Registration [id number] 07/12/2016 15:09:00 Document Registration [id number] 07/02/2016 10:08:00 Document Registration [id number] 11/29/2016 07:06:00 Document Registration [id number] 12/31/2014 18:20:44 ACT Document Registration [id number] 08/25/2016 13:05:00 Document Registration [id number] 12/13/2017 13:02:00 12/13/2017 23:59:59 CLS Preadmit ROCIO ELIZALDE APRN [facility] RAD R06.02 SOB [id number] 12/07/2017 11:07:00 12/07/2017 23:59:59 CLS Outpatient CASEY SIMPSONP [facility] RAD PULMONARY EMPHYSEMA, UNSPECIFIED EMPHYSEMA TYPE [id number] 11/24/2017 09:00:00 11/24/2017 23:59:59 CLS Preadmit TORRES ANTHONY MD [facility] CATARACT LEFT EYE [id number] 11/03/2017 10:09:00 11/03/2017 11:21:00 DIS Outpatient TORRES ANTHONY MD [facility] CATARACT RIGHT EYE [id number] 11/02/2017 05:39:00 11/02/2017 09:03:00 DIS Outpatient GABRIELLE PEREZ, TORRES Galvez [facility] PREOP CATARACT RIGHT EYE [id number] 10/30/2017 09:30:00 10/30/2017 23:59:59 CLS Preadmit FIDE, ROCIO E USER INTERFACE ARTIST [facility] PULM ACUTE ON CHRONIC RESPIRATORY FAILURE [id number] 10/03/2017 15:10:00 10/03/2017 23:59:59 CLS Outpatient FIDE, ROCIO E USER INTERFACE ARTIST [facility] RAD J43.9 [id number] 09/08/2017 19:42:00 09/13/2017 10:30:00 DIS Inpatient CHER PEREZ, ОЛЕГ Hamilton [facility] 4TH COPD EXACERBATION [id number] 06/24/2017 12:20:00 06/29/2017 12:40:00 DIS Inpatient MILY MILLARD DO [facility] 4TH ACUTE RESPIRATORY FAILURE, COPD [id number] 03/20/2017 14:45:00 03/20/2017 23:59:59 CLS Outpatient FIDE, ROCIO E USER INTERFACE ARTIST [facility] RAD J96.20 ACUTE ON CHRONIC RESPIRATORY FAILURE [id number] 11/22/2016 12:31:00 11/22/2016 23:59:59 CLS Outpatient FIDE, ROCIO E USER INTERFACE ARTIST [facility] RAD J40 [id number] 09/28/2016 00:17:00 09/28/2016 23:59:59 CLS Preadmit FIDE, ROCIO E USER INTERFACE ARTIST [facility] LAB COPD,SOB ON EXERTION [id number] 06/29/2016 11:29:00 09/27/2016 00:01:00 DIS Outpatient FIDE, ROCIO E USER INTERFACE ARTIST [facility] LAB COPD,SOB ON EXERTION [id number] 09/23/2016 12:41:00 09/23/2016 23:59:59 CLS Outpatient FIDE, ROCIO E USER INTERFACE ARTIST [facility] RAD J44.1 [id number] 09/02/2016 07:52:00 09/02/2016 23:59:59 CLS Outpatient CASEY SIMPSON [facility] RAD R10.12 [id number] 08/01/2016 07:08:00 08/01/2016 09:25:00 DIS Outpatient DANYA GAO MD [facility] ENDO IRON DEFICIENCY ANEMIA/HEMATOCHEZIA [id number] 07/28/2016 05:49:00 07/28/2016 15:54:00 DIS Outpatient DANYA GAO MD [facility] PREOP ANEMIA, HEMATOCHEZIA [id number] 05/24/2016 11:23:00 05/24/2016 23:59:59 CLS Outpatient CASEY SIPMSON [facility] RAD SCREENING [id number] 05/23/2016 10:15:00 05/23/2016 23:59:59 CLS Preadmit ROCIO ELIZALDE USER INTERFACE ARTIST [facility] PULM COPD [id number] 02/22/2016 10:36:00 05/22/2016 00:01:00 DIS Outpatient LAM ELIZALDEINE E USER INTERFACE ARTIST [facility] PULM COPD [id number] 05/05/2016 14:07:00 05/05/2016 23:59:59 CLS Outpatient LAM ELIZALDEINE E USER INTERFACE ARTIST [facility] RAD FEVER,COPD, BRONCHITIS [id number] 02/01/2016 08:55:00 02/01/2016 23:59:59 CLS Outpatient JORGE TORRES MD [facility] CARD CAD,COPD,CP [id number] 01/08/2016 12:31:00 01/08/2016 23:59:59 CLS Outpatient LAM ELIZALDEINE E USER INTERFACE ARTIST [facility] RT SOB ON EXERTION, HYPOXEMIA,COPD,DYSPNEA [id number] 11/24/2015 13:01:00 11/24/2015 23:59:59 CLS Outpatient LAM ELIZALDEINE E USER INTERFACE ARTIST [facility] RT COPD [id number] 10/29/2015 14:28:00 10/29/2015 23:59:59 CLS Outpatient ROCIO ELIZALDE APRN [facility] RAD COPD,DYSPNEA, TOBACCO USER,HYPOXEMIA [id number] 08/24/2015 09:47:00 08/24/2015 23:59:59 CLS Outpatient TATIANAALICE AZEVEDOZen HAYSP [facility] RAD LLQ PAIN [id number] 06/02/2015 12:29:00 06/02/2015 23:59:59 CLS Outpatient ROCIO ELIZALDE APRN [facility] RAD COPD, DYSPNEA, SOB ON EXERTION [id number] 04/26/2015 02:00:00 04/26/2015 03:45:00 DIS Emergency CHERYLE CONNOLLY DO [facility] ER SOB/SOA [id number] 03/16/2015 06:10:00 03/16/2015 08:42:00 DIS Emergency LEIGH TORRES MD [facility] ER SOA [id number] 12/31/2014 18:19:00 12/31/2014 23:59:59 CLS Outpatient ROCIO ELIZALDE APRN [facility] RAD PNEUMONIA,COPD, DYSPNEA,TOBACCO USE [id number] 03/24/2014 10:18:00 03/24/2014 23:59:59 CLS Outpatient JORGE TORRES MD [facility] CARD CAD PALPITATIONS HLE HTN [id number] 10/15/2013 09:04:00 10/15/2013 23:59:59 CLS Outpatient LEANN GILL DO [facility] RAD [id number] 09/04/2013 08:19:00 09/04/2013 23:59:59 CLS Outpatient LEANN GILL DO [facility] RT [id number] 07/08/2013 11:21:00 07/09/2013 13:35:00 DIS Inpatient SHANA YORK MD [facility] CSD CHEST PAIN W/EXERTION COPD [id number] 06/25/2013 10:42:00 06/25/2013 23:59:59 CLS Outpatient SHANA OHARA MD [facility] RAD COPD [id number] 06/20/2013 09:24:00 06/20/2013 23:59:59 CLS Outpatient BLAS RENEE APRN [facility] RAD OSTEOPENIA [id number] 05/21/2013 09:33:00 05/21/2013 23:59:59 CLS Outpatient [id number] 10/25/2012 08:54:00 10/25/2012 23:59:59 CLS Outpatient ARI WRIGHT [facility] RAD WEIGHT LOSS [id number] 10/08/2012 08:45:00 10/08/2012 10:50:00 DIS Outpatient DANYA GAO MD [facility] HISTORY OF POLYPS/ WEIGHT LOSS [id number] 10/03/2012 10:55:00 10/03/2012 23:59:59 CLS Outpatient DANYA GAO MD [facility] PREOP HISTORY OF POLYPS/ WEIGHT LOSS [id number] 12/29/2017 23:55:00 ACT Inpatient ANA FISCHER DO [facility] 4TH COPD EXAC.,PNA,SEPSIS,ACUTE ON CHRONIC REPS DISTRE [id number] 01/28/2016 10:27:00 Document Registration [id number] 06/23/2014 10:30:00 Document Registration [id number] 06/13/2014 11:27:00 Document Registration [id number] 04/02/2014 12:13:00 Document Registration [id number] 04/06/2012 09:08:00 Document Registration [id number] 03/30/2012 09:28:00 Document Registration [id number] 03/28/2012 07:15:00 Document Registration [id number] 03/12/2012 15:16:00 Document Registration [id number] 03/06/2012 13:07:00 Document Registration [id number] 11/04/2011 13:36:00 Document Registration [id number] 09/02/2011 10:14:00 Document Registration [id number] 08/30/2011 09:45:00 Document Registration [id number] 08/24/2011 06:11:00 Document Registration [id number] 08/19/2011 09:25:00 Document Registration [id number] 04/26/2011 13:02:00 Document Registration [id number] 02/05/2010 14:02:00 Document Registration [id number] 11/17/2009 11:07:00 Document Registration
[2017-12-30] MEDS: 1/2 NS W/KCL 20 MEQ/L 1,000 ML IV SCH ×5 (01:54→22:27)
[2017-12-30] MEDS: CATHETER FLUSH 10 ML SYR IV SCH ×3 (01:54→22:21)
[2017-12-30] MEDS ORDERED: NICOTINE 14 MG (NICODERM) PATCH TD PRN (02:00)
[2017-12-30 03:36] VITALS: BP 127/84
[2017-12-30] MEDS ORDERED: RT-ALBUTEROL/IPRATROPIUM 3 ML (DUONEB) VIAL INH PRN (03:45)
[2017-12-30 03:55] VITALS: BP 140/77
[2017-12-30 06:37] LABS: BASOPHILS % (AUTO) 0 % (0-10); EOSINOPHILS % (AUTO) 0 % (0-10); HEMATOCRIT 39 % (35-52); HEMOGLOBIN 12.5 G/DL (11.5-16.0); LYMPHOCYTES # (AUTO) 0.4 X 10^3 (1.0-4.0); LYMPHOCYTES % (AUTO) 3 % (12-44); MEAN CORPUSCULAR HEMOGLOBIN 29 PG (25-34); MEAN CORPUSCULAR HGB CONC 32 G/DL (32-36); MEAN CORPUSCULAR VOLUME 92 FL (80-99); MEAN PLATELET VOLUME 9.2 FL (7.4-10.4); MONOCYTES # (AUTO) 0.2 X 10^3 (0.0-1.0); MONOCYTES % (AUTO) 2 % (0-12); NEUTROPHILS # (AUTO) 13.2 X 10^3 (1.8-7.8); NEUTROPHILS % (AUTO) 95 % (42-75); PLATELET COUNT 354 10^3/uL (130-400); RED BLOOD COUNT 4.26 10^6/uL (4.35-5.85); RED CELL DISTRIBUTION WIDTH 12.8 % (10.0-14.5); WHITE BLOOD COUNT 13.9 10^3/uL (4.3-11.0)
[2017-12-30 06:56] LABS: BUN/CREATININE RATIO 20; CALCIUM 8.8 MG/DL (8.5-10.1); CARBON DIOXIDE 25 MMOL/L (21-32); CHLORIDE 101 MMOL/L (98-107); CREATININE SERUM 0.66 MG/DL (0.60-1.30); GFR ESTIMATED > 60; GLUCOSE 158 MG/DL (70-105); POTASSIUM 4.9 MMOL/L (3.6-5.0); SODIUM 135 MMOL/L (135-145)
[2017-12-30] MEDS: RT-ALBUTEROL/IPRATROPIUM 3 ML (DUONEB) VIAL INH SCH ×5 (07:19→21:51)
[2017-12-30 08:00] VITALS: BP 141/85
[2017-12-30] MEDS: methylPREDNISolone 40 MG/ML (Solu-MEDROL) VIAL IV SCH (08:14)
--- NOTE | 2017-12-30 09:07 | Diagnostic Imaging Report ---
CHEST 1 VIEW, AP/PA ONLY Indication: Shortness of air Comparison: 10/03/2017 Findings: Stable linear focus of atelectasis/scar in the right midlung zone. No new focal airspace disease in the visualized lungs. Please note that the posterior lower lobes are poorly evaluated by portable radiography. No pleural effusion or pneumothorax. Normal cardiomediastinal silhouette. Impression: No acute cardiopulmonary process by portable radiography. Dictated by: Dictated on workstation # [id number]
[2017-12-30] MEDS ORDERED: ASPI-586 PO (10:25)
[2017-12-30] MEDS ORDERED: ASCO-262 PO (10:26)
[2017-12-30] MEDS ORDERED: CLOP75TA28 PO (10:27)
[2017-12-30] MEDS ORDERED: DESV100T6 PO (10:40)
[2017-12-30] MEDS ORDERED: PLTR10OP OD (10:45)
[2017-12-30] MEDS: CEFEPIME 2 GM/NS 50 ML IVPB IV SCH ×4 (10:50→22:56)
[2017-12-30] MEDS: LORazepam INJ 2 MG/ML (ATIVAN) VIAL IV PRN ×2 (11:14→22:56)
--- NOTE | 2017-12-30 11:43 | Diagnostic Imaging Report ---
INDICATION: COPD with shortness of breath. COMPARISON: 12/29/2017. FINDINGS: Lungs are clear with the exception of linear atelectasis/scar in the right midlung zone. No pleural effusion or pneumothorax. Normal cardiomediastinal silhouette and pulmonary vasculature. IMPRESSION: No acute cardiopulmonary process. Dictated by: Dictated on workstation # [id number]
[2017-12-30 11:47] VITALS: BP 138/70
--- NOTE | 2017-12-30 15:22 | History & Physicial (CHS) ---
HPI History of Present Illness: This is a 67 yo female w/ hx of COPD who presented to the ER w/ worsening dyspnea despite out patient treatment with Zithromax, prednisone and nebs. Pt was last admitted 08/2017 for COPD exacerbation and required ICU admission. Pt was placed on Bi-pap in the ER with improvement and subsequently was admitted to the floor. Pt continues on Bi-pap but does report improvement in symptoms since admission. Pt is on 2-3 L oxygen at home. Source: patient Exam Limitations: clinical condition (Bipap) Date seen by provider: Dec 30, 2017 Time Seen by Provider: 08:15 Attending Physician Ana Gorman DO [facility] Center/[facility] [place] Consult Date of Admission Dec 29, 2017 at 23:55 Home Medications Home Medications Reviewed patient Home Medication Reconciliation performed by pharmacy medication reconciliations avionics technician and/or nursing. Patients Allergies have been reviewed. Allergies Coded Allergies: tramadol (Unverified Allergy, Mild, 12/29/17) Penicillins (Verified Allergy, Unknown, 07/08/13) Sulfa (Sulfonamide Antibiotics) (Verified Allergy, Unknown, 07/08/13) sumatriptan (Verified Allergy, Unknown, 07/08/13) [id number] Hx Patient Social History Alcohol Use: Denies Use Recreational Drug Use: No Smoking Status: Current Everyday Smoker Type Used: Cigarettes Recent Foreign Travel: No Contact w/other who traveled: No Recent Hopitalizations: Yes (ICU IN SEPTEMBER FOR SHORTNESS OF AIR) Recent Infectious Disease Expo: No Physical Abuse Screen: No Sexual Abuse: No Immunizations Up To Date Tetanus Booster (TDap): Unknown Date of Pneumonia Vaccine: Oct 08, 2002 Date of Influenza Vaccine: Mar 17, 2017 Past Medical History COPD Anxiety Tobacco Abuse Dependence on Supplemental Oxygen Pulmonary Emphysema Memory Loss IBS with Diarrhea Depression Anemia - Iron Deficiecy CAD HTN Essential Tremor Family Medical History Significant Family History: No Pertinent Family Hx Review of Systems (CHC) Constitutional: see HPI Reviewed Test Results Reviewed Test Results Lab Laboratory Tests 12/29/17 00:55: Lactic Acid Level 0.78 12/29/17 22:40: Lactic Acid Level 2.61*H, White Blood Count 14.9H, Red Blood Count 4.50, Hemoglobin 13.6, Hematocrit 41, Mean Corpuscular Volume 90, Mean Corpuscular Hemoglobin 30, Mean Corpuscular Hemoglobin Concent 34, Red Cell Distribution Width 12.7, Platelet Count 392, Mean Platelet Volume 9.3, Neutrophils (%) (Auto ) 76H, Lymphocytes (%) (Auto) 11L, Monocytes (%) (Auto) 12, Eosinophils (%) ( Auto) 1, Basophils (%) (Auto) 0, Neutrophils # (Auto) 11.3H, Lymphocytes # (Auto ) 1.6, Monocytes # (Auto) 1.8H, Eosinophils # (Auto) 0.2, Basophils # (Auto) 0.1 , Neutrophils % (Manual) 71, Lymphocytes % (Manual) 15, Monocytes % (Manual) 9, Eosinophils % (Manual) 4, Basophils % (Manual) 1, Band Neutrophils 0, Blood Morphology Comment NORMAL, Sodium Level 137, Potassium Level 4.9, Chloride Level 99, Carbon Dioxide Level 23, Anion Gap 15H, Blood Urea Nitrogen 14, Creatinine 0.74, Estimat Glomerular Filtration Rate > 60, BUN/Creatinine Ratio 19, Glucose Level 178H, Calcium Level 9.4, Corrected Calcium 9.2, Total Bilirubin 0.4, Aspartate Amino Transf (AST/SGOT) 20, Alanine Aminotransferase ( ALT/SGPT) 15, Alkaline Phosphatase 67, C-Reactive Protein High Sensitivity 1.46H , Total Protein 7.1, Albumin 4.2 12/29/17 23:26: Blood Gas Puncture Site RT RADIAL, Blood Gas Patient Temperature 97.4, Arterial Blood pH 7.32*L, Arterial Blood Partial Pressure CO2 60H, Arterial Blood Partial Pressure O2 89, Arterial Blood HCO3 30H, Arterial Blood Total CO2 31.9H , Arterial Blood Oxygen Saturation 97, Arterial Blood Base Excess 4.1H, John Test POSITIVE, Blood Gas Ventilator Setting YES, Blood Gas Inspired Oxygen 50% 12/30/17 06:07: Lactic Acid Level 0.74 12/30/17 06:09: White Blood Count 13.9H, Red Blood Count 4.26L, Hemoglobin 12.5, Hematocrit 39, Mean Corpuscular Volume 92, Mean Corpuscular Hemoglobin 29, Mean Corpuscular Hemoglobin Concent 32, Red Cell Distribution Width 12.8, Platelet Count 354, Mean Platelet Volume 9.2, Neutrophils (%) (Auto) 95H, Lymphocytes (%) (Auto) 3L , Monocytes (%) (Auto) 2, Eosinophils (%) (Auto) 0, Basophils (%) (Auto) 0, Neutrophils # (Auto) 13.2H, Lymphocytes # (Auto) 0.4L, Monocytes # (Auto) 0.2, Eosinophils # (Auto) 0.0, Basophils # (Auto) 0.0, Sodium Level 135, Potassium Level 4.9, Chloride Level 101, Carbon Dioxide Level 25, Anion Gap 9, Blood Urea Nitrogen 13, Creatinine 0.66, Estimat Glomerular Filtration Rate > 60, BUN/ Creatinine Ratio 20, Glucose Level 158H, Calcium Level 8.8, Troponin I < 0.30 Radiology Date of Exam: 12/29/17 CHEST 1 VIEW, AP/PA ONLY CHEST 1 VIEW, AP/PA ONLY Indication: Shortness of air Comparison: 10/03/2017 Findings: Stable linear focus of atelectasis/scar in the right midlung zone. No new focal airspace disease in the visualized lungs. Please note that the posterior lower lobes are poorly evaluated by portable radiography. No pleural effusion or pneumothorax. Normal cardiomediastinal silhouette. Impression: No acute cardiopulmonary process by portable radiography. Physical Exam-(CHC) Physical Exam Vital Signs VS - Last 72 Hours, by Label 12/29/17 12/29/17 12/30/17 12/30/17 22:35 23:15 00:36 01:15 Temp 97.4 98.0 Pulse 108 105 100 Resp 28 23 18 B/P (MAP) 127/84 (98) 138/99 Pulse Ox 85 98 97 O2 Delivery NIV Bilevel NIV Bilevel O2 Flow Rate 50.00 12/30/17 12/30/17 12/30/17 12/30/17 02:55 03:36 03:55 07:23 Temp 98.0 Pulse 94 108 97 96 Resp 18 28 21 B/P (MAP) 140/77 (98) Pulse Ox 97 85 99 98 O2 Delivery NIV Bilevel O2 Flow Rate 50.00 50.00 FiO2 21 12/30/17 12/30/17 12/30/17 12/30/17 08:00 08:00 08:40 11:33 Temp 98.3 Pulse 94 100 102 Resp 36 20 30 B/P (MAP) 141/85 (103) Pulse Ox 98 98 95 96 O2 Delivery NIV Bilevel NIV Bilevel O2 Flow Rate 50.00 40.00 40.00 12/30/17 12/30/17 12/30/17 11:47 12:54 15:12 Temp 98.2 Pulse 109 125 92 Resp 28 19 19 B/P (MAP) 138/70 (92) Pulse Ox 97 98 96 O2 Delivery NIV Bilevel O2 Flow Rate 40.00 Capillary Refill : Less Than 3 Seconds General Appearance: WD/WN, mild distress Respiratory: accessory muscle use (mild), wheezing, other (decreased BS) Cardiovascular: regular rate, rhythm Gastrointestinal: non tender, soft Neurologic/Psychiatric: alert, normal mood/affect, oriented x 3 Assessment/Plan Assessment/Plan Admission Dx 1. Acute on chronic respiratory failure with hypoxia 2. COPD w/ acute exacerbation Admission Status: Inpatient Order (span 2 midnights) Reason for Inpatient Admission: Requiring bi-pap for acute respiratory distress which will likely take >2 days to resolve due to severity Assessment & Plan 1. Acute on chronic respiratory failure with hypoxia - admitted on bi-pap; currently 99%, FIO2 21% - started on Cefepime and Solumedrol - wbc 14.9 --> 13.9; lactic acid .78 --> 2.61 --> .74 2. COPD w/ acute exacerbation as per #1 Clinical Quality Measures DVT/VTE Risk/Contraindication: Risk Factor Score Per Nursin RFS Level Per Nursing on Admit: 4+=Very High Risk Score Comment: ANA Samaniego DO Dec 30, 2017 15:22
[2017-12-30 15:56] VITALS: BP 131/73
[2017-12-30] MEDS: ENOXAPARIN 40 MG/0.4 ML (LOVENOX) SYR SQ SCH (16:16)
[2017-12-30] MEDS ORDERED: VENlafaxine XR 75 MG (EFFEXOR XR) CAP PO ONE (17:15)
[2017-12-30] MEDS: VENlafaxine XR 75 MG (EFFEXOR XR) CAP PO SCH (17:19)
[2017-12-30] MEDS: LORazepam 1 MG (ATIVAN) TAB PO SCH (20:29)
[2017-12-30] MEDS: MONTELUKAST 10 MG (SINGULAIR) TAB PO SCH (20:29)
[2017-12-30] MEDS: FERROUS SULF 325 MG (IRON) TAB PO SCH (20:34)
[2017-12-30 20:46] VITALS: BP 139/71
[2017-12-31] VITALS: BP 144/71
[2017-12-31] MEDS: RT-ALBUTEROL/IPRATROPIUM 3 ML (DUONEB) VIAL INH SCH ×6 (01:50→21:54)
[2017-12-31 04:00] VITALS: BP_SYST 108; BP_SYST 116; BP_DIAS 51; BP_DIAS 69
[2017-12-31] MEDS: 1/2 NS W/KCL 20 MEQ/L 1,000 ML IV SCH ×3 (05:43→19:41)
[2017-12-31] MEDS: CATHETER FLUSH 10 ML SYR IV SCH ×3 (05:59→20:57)
[2017-12-31 06:10] LABS: BASOPHILS % (AUTO) 0 % (0-10); EOSINOPHILS # (AUTO) 0.1 10^3/uL (0.0-0.3); EOSINOPHILS % (AUTO) 1 % (0-10); HEMATOCRIT 36 % (35-52); HEMOGLOBIN 11.4 G/DL (11.5-16.0); LYMPHOCYTES # (AUTO) 1.8 X 10^3 (1.0-4.0); LYMPHOCYTES % (AUTO) 13 % (12-44); MEAN CORPUSCULAR HEMOGLOBIN 30 PG (25-34); MEAN CORPUSCULAR HGB CONC 32 G/DL (32-36); MEAN CORPUSCULAR VOLUME 92 FL (80-99); MEAN PLATELET VOLUME 9.1 FL (7.4-10.4); MONOCYTES # (AUTO) 1.9 X 10^3 (0.0-1.0); MONOCYTES % (AUTO) 14 % (0-12); NEUTROPHILS % (AUTO) 73 % (42-75); PLATELET COUNT 311 10^3/uL (130-400); RED BLOOD COUNT 3.85 10^6/uL (4.35-5.85); RED CELL DISTRIBUTION WIDTH 12.5 % (10.0-14.5); WHITE BLOOD COUNT 13.8 10^3/uL (4.3-11.0)
[2017-12-31] MEDS: LORazepam 1 MG (ATIVAN) TAB PO SCH ×2 (06:24→20:57)
[2017-12-31] MEDS: VENlafaxine XR 75 MG (EFFEXOR XR) CAP PO SCH (06:24)
[2017-12-31 06:26] LABS: BUN/CREATININE RATIO 24; CALCIUM 8.8 MG/DL (8.5-10.1); CARBON DIOXIDE 23 MMOL/L (21-32); CHLORIDE 103 MMOL/L (98-107); CREATININE SERUM 0.58 MG/DL (0.60-1.30); GFR ESTIMATED > 60; GLUCOSE 90 MG/DL (70-105); POTASSIUM 4.1 MMOL/L (3.6-5.0); SODIUM 135 MMOL/L (135-145)
[2017-12-31] MEDS ORDERED: VENlafaxine XR 75 MG (EFFEXOR XR) CAP PO SCH (07:00)
[2017-12-31 08:00] VITALS: BP 124/65
[2017-12-31] MEDS: ISOSORBIDE MONONITRATE 30 MG (IMDUR) TAB PO SCH (08:36)
[2017-12-31] MEDS: FOLIC ACID 1 MG TAB PO SCH (08:36)
[2017-12-31] MEDS: MAGNESIUM OXIDE (MAG-OX)400 MG TAB PO SCH (08:36)
[2017-12-31] MEDS: ASPIRIN E.C. 81 MG (ECOTRIN) TAB PO SCH (08:36)
[2017-12-31] MEDS: LORATADINE (CLARITIN) 10 MG TAB PO SCH (08:36)
[2017-12-31] MEDS: FERROUS SULF 325 MG (IRON) TAB PO SCH ×2 (08:36→20:58)
[2017-12-31] MEDS: methylPREDNISolone 40 MG/ML (Solu-MEDROL) VIAL IV SCH (08:37)
[2017-12-31] MEDS: NICOTINE PATCH REMOVAL TP SCH (08:38)
[2017-12-31] MEDS: LORazepam INJ 2 MG/ML (ATIVAN) VIAL IV PRN ×2 (09:05→18:04)
[2017-12-31] MEDS: CEFEPIME 2 GM/NS 50 ML IVPB IV SCH ×2 (11:06)
[2017-12-31 12:00] VITALS: BP 119/69
--- NOTE | 2017-12-31 14:16 | Progress Note (SOAP) ---
Subjective Subjective/Events-last exam Pt continues on Bipap. Put on nc to eat but becomes dyspneic again. Review of Systems Date Seen by Provider: Dec 31, 2017 Time Seen by Provider: 10:45 Focused Exam Lactate Level 12/29/17 00:55: Lactic Acid Level 0.78 12/29/17 22:40: Lactic Acid Level 2.61*H 12/30/17 06:07: Lactic Acid Level 0.74 Objective Exam Last Set of Vital Signs Vital Signs Date Time Temp Pulse Resp B/P (MAP) Pulse Ox O2 Delivery O2 Flow Rate FiO2 12/31/17 12:40 116 26 92 32.00 12/31/17 12:00 98.7 119/69 (86) NIV Bilevel 12/30/17 03:36 21 Capillary Refill : Less Than 3 Seconds I&O Intake and Output 12/31/17 00:00 Intake Total 4550 ml Balance 4550 ml Intake Oral 1450 ml IV Total 3100 ml # Voids 5 # Bowel Movements 1 Daily Weight Change No General: Alert, Oriented X3, Cooperative Lungs: Other (decreased air excursion and expiratory wheezes throughout) Heart: Regular Rate Psych/Mental Status: Mental Status NL Results/Procedures Lab Laboratory Tests 12/31/17 05:48: White Blood Count 13.8H, Red Blood Count 3.85L, Hemoglobin 11.4L, Hematocrit 36 , Mean Corpuscular Volume 92, Mean Corpuscular Hemoglobin 30, Mean Corpuscular Hemoglobin Concent 32, Red Cell Distribution Width 12.5, Platelet Count 311, Mean Platelet Volume 9.1, Neutrophils (%) (Auto) 73, Lymphocytes (%) (Auto) 13, Monocytes (%) (Auto) 14H, Eosinophils (%) (Auto) 1, Basophils (%) (Auto) 0, Neutrophils # (Auto) 10.0H, Lymphocytes # (Auto) 1.8, Monocytes # (Auto) 1.9H, Eosinophils # (Auto) 0.1, Basophils # (Auto) 0.0, Sodium Level 135, Potassium Level 4.1, Chloride Level 103, Carbon Dioxide Level 23, Anion Gap 9, Blood Urea Nitrogen 14, Creatinine 0.58L, Estimat Glomerular Filtration Rate > 60, BUN/ Creatinine Ratio 24, Glucose Level 90, Calcium Level 8.8 Microbiology 12/29/17 Blood Culture - Preliminary, Resulted No growth Radiology Date of Exam: 12/29/17 CHEST 1 VIEW, AP/PA ONLY CHEST 1 VIEW, AP/PA ONLY Indication: Shortness of air Comparison: 10/03/2017 Findings: Stable linear focus of atelectasis/scar in the right midlung zone. No new focal airspace disease in the visualized lungs. Please note that the posterior lower lobes are poorly evaluated by portable radiography. No pleural effusion or pneumothorax. Normal cardiomediastinal silhouette. Impression: No acute cardiopulmonary process by portable radiography. Assessment/Plan Assessment/Plan Assessment & Plan 1. Acute on chronic respiratory failure with hypoxia - admitted on bi-pap; currently 99%, FIO2 21% - started on Cefepime and Solumedrol - wbc 14.9 --> 13.9; lactic acid .78 --> 2.61 --> .74 12/31 - continues on Bi-pap 32% FIO2; Pt stable but not improving - consult Dr. Ken to see in the am - blood cultures negative 2. COPD w/ acute exacerbation as per #1 Clinical Quality Measures DVT/VTE Risk/Contraindication: Risk Factor Score Per Nursin RFS Level Per Nursing on Admit: 4+=Very High Risk Score Comment: ANA Samaniego DO Dec 31, 2017 14:16
[2017-12-31 15:25] VITALS: BP 139/84
[2017-12-31] MEDS: ENOXAPARIN 40 MG/0.4 ML (LOVENOX) SYR SQ SCH (16:11)
[2017-12-31] MEDS: CATHETER FLUSH 10 ML SYR IV PRN (18:05)
[2017-12-31 19:05] VITALS: BP 149/84
[2017-12-31] MEDS: MONTELUKAST 10 MG (SINGULAIR) TAB PO SCH (20:57)
[2018-01-01] VITALS (7 sets, daily range): BP systolic 130–160; BP diastolic 79–98
[2018-01-01] MEDS: CEFEPIME 2 GM/NS 50 ML IVPB IV SCH ×6 (00:09→22:18)
[2018-01-01] MEDS: RT-ALBUTEROL/IPRATROPIUM 3 ML (DUONEB) VIAL INH SCH ×8 (02:27→23:49)
[2018-01-01] MEDS: 1/2 NS W/KCL 20 MEQ/L 1,000 ML IV SCH (02:59)
[2018-01-01] MEDS: LORazepam INJ 2 MG/ML (ATIVAN) VIAL IV PRN (04:25)
[2018-01-01] MEDS: CATHETER FLUSH 10 ML SYR IV SCH ×3 (06:38→21:13)
[2018-01-01] MEDS: VENlafaxine XR 75 MG (EFFEXOR XR) CAP PO SCH (06:47)
[2018-01-01] MEDS: ASPIRIN E.C. 81 MG (ECOTRIN) TAB PO SCH (07:57)
[2018-01-01] MEDS: MAGNESIUM OXIDE (MAG-OX)400 MG TAB PO SCH (07:57)
[2018-01-01] MEDS: FOLIC ACID 1 MG TAB PO SCH (07:57)
[2018-01-01] MEDS: LORATADINE (CLARITIN) 10 MG TAB PO SCH (07:57)
[2018-01-01] MEDS: LORazepam 1 MG (ATIVAN) TAB PO SCH ×2 (07:57→21:13)
[2018-01-01] MEDS: ISOSORBIDE MONONITRATE 30 MG (IMDUR) TAB PO SCH (07:58)
[2018-01-01] MEDS: FERROUS SULF 325 MG (IRON) TAB PO SCH ×2 (07:58→21:12)
[2018-01-01] MEDS: NICOTINE PATCH REMOVAL TP SCH (07:58)
[2018-01-01] MEDS: methylPREDNISolone 40 MG/ML (Solu-MEDROL) VIAL IV SCH ×3 (07:58→18:01)
--- NOTE | 2018-01-01 09:37 | Progress Note-Hospitalist ---
FRANK FATIMA MED STUDENT 01/01/18 0937: Subjective HPI/CC On Admission Date Seen by Provider: Jan 01, 2018 Time Seen by Provider: 08:10 Dyspnea, SOB Subjective/Events-last exam patient was in distress when I entered the room leaning forward, grasping the bedside rail and having shortness of breath made it hard to answer questions her was at the bedside and relayed to me that she usually takes ativan at home during these anxious episodes patient did not sleep well but no overnight events she is urinating frequently without problems BM are regular and not of concern at this time She is not in pain lungs: bilateral wheezing, grunting with inspiration, increased work of breathing Focused Exam Lactate Level 12/29/17 22:40: Lactic Acid Level 2.61*H 12/30/17 06:07: Lactic Acid Level 0.74 Objective Exam Vital Signs Vital Signs Date Time Temp Pulse Resp B/P (MAP) Pulse Ox O2 Delivery O2 Flow Rate FiO2 01/01/18 11:07 91 Nasal Cannula 5.00 01/01/18 08:00 96.9 114 22 131/81 (98) 12/30/17 03:36 21 Capillary Refill : Less Than 3 Seconds General Appearance: Anxious, Moderate Distress HEENT: Other (on bipap, short of breath when this is removed) Respiratory: Chest Non Tender, Wheezing, Other (grunting heard on auscltation) Neurologic/Psychiatric: Alert, Oriented x3 Results/Procedures Lab Patient resulted labs reviewed. Assessment/Plan Assessment and Plan Assess & Plan/Chief Complaint cc: dyspnea assessment patient is very anxious unable to breath comfortably, requires bipap plan increase frequency of IV ativan dose consult Suellen patient was asking about vapotherm Clinical Quality Measures DVT/VTE Risk/Contraindication: Risk Factor Score Per Nursin RFS Level Per Nursing on Admit: 4+=Very High Risk Score Comment: Lovenox ordered HEMA FISCHER DO 01/01/18 1203: Subjective Supervisory Addendum Participated in pt care: history, physical Personally performed: exam Procedures: assisted E&M service: agree Results interpretation: agree Notes: Patient in need of more anxiolytics to facilitate wean from biPAP Iv steroids maintained Vapotherm requested and that will be d/w Dr Ken Objective Exam General Appearance: Anxious, Moderate Distress Respiratory: Accessory Muscle Use, Crackles, Decreased Breath Sounds, Wheezing , Other (on biPAP) Neurologic/Psychiatric: Alert, Oriented x3, No Motor/Sensory Deficits, Normal Mood/Affect Skin: Normal Color, Warm/Dry Diagnosis/Problems Diagnosis/Problems (1) Acute on chronic respiratory failure with hypoxia and hypercapnia Status: Acute (2) Anxiety Status: Chronic (3) COPD exacerbation Status: Acute (4) Debility Status: Chronic (5) HTN (hypertension) Status: Chronic Qualifiers: Hypertension type: essential hypertension Qualified Codes: I10 - Essential (primary) hypertension FRANK FATIMA MED STUDENT Jan 01, 2018 09:37 HEMA FISCHER DO Jan 01, 2018 12:03
[2018-01-01] MEDS: LORazepam INJ 2 MG/ML (ATIVAN) VIAL IVP PRN ×2 (11:27→15:42)
--- NOTE | 2018-01-01 11:59 | Pulmonary Consultation ---
History of Present Illness History of Present Illness Date of Consultation 01/01/18 11:56 Time Seen by Provider: 13:14 Date of Admission History of Present Illness 67yo with hx of very severe COPD and oxygen dependent presented to ED secondary to worsening SOB. No fever however has had productive cough of yellow sputum. Pt was placed on BiPAP secondary to respiratory distress and hypoxia. I am consulted for pulmonary managemetn. Pt has had prior episodes of COPDAE. Allergies and Home Medications Allergies Coded Allergies: tramadol (Unverified Allergy, Mild, 12/29/17) Penicillins (Verified Allergy, Unknown, 07/08/13) Sulfa (Sulfonamide Antibiotics) (Verified Allergy, Unknown, 07/08/13) sumatriptan (Verified Allergy, Unknown, 07/08/13) Home Medications Albuterol Sulfate 2.5 Mg/3 Ml Vial.neb, 2.5 MG NEB Q4H PRN for WHEEZING, ( Reported) Albuterol Sulfate 18 Gm Hfa.aer.ad, 2 PUFF INH Q4H PRN for SHORTNESS OF BREATH, (Reported) Ascorbate Calcium 500 Mg Tablet, 500 MG PO DAILY, (Reported) Aspirin 81 Mg Tablet.dr, 81 MG PO DAILY, (Reported) Cetirizine HCl 10 Mg Tablet, 10 MG PO DAILY, (Reported) Desvenlafaxine 100 Mg Tab.er.24h, 100 MG PO DAILY, (Reported) Ferrous Sulfate 325 Mg Tablet, 325 MG PO BID, (Reported) Folic Acid 0.4 Mg Tablet, 0.4 MG PO DAILY, (Reported) Ipratropium/Albuterol Sulfate 3 Ml Ampul.neb, 3 ML NEB BID, (Reported) Isosorbide Mononitrate 30 Mg Tab.er.24h, 30 MG PO DAILY, (Reported) Lorazepam 1 Mg Tablet, 1 MG PO BID Prescribed by: HEMA FISCHER on 01/05/18 09 Magnesium Oxide 250 Mg Tablet, 500 MG PO DAILY, (Reported) TAKE 2 (250MG) TABLETS ONCE DAILY Montelukast Sodium 10 Mg Tablet, 10 MG PO HS, (Reported) Prednisone 10 Mg Tab.ds.pk, 10 MG PO DAILY Take 6 tabs(60mg)daily,decrease by 1 tab(10MG)daily. Prescribed by: HEMA FISCHER on 01/05/18 09 Past [id number]-[id number]-Stfsyb Hx Patient Social History Alcohol Use: Denies Use Recreational Drug Use: No Smoking Status: Current Everyday Smoker Type Used: Cigarettes Recent Foreign Travel: No Contact w/Someone Who Travel: No Recent Infectious Disease Expo: No Recent Hopitalizations: Yes (ICU IN SEPTEMBER FOR SHORTNESS OF AIR) Physical Abuse: No Sexual Abuse: No Mistreated: No Fear: No Immunizations Up To Date Tetanus Booster (TDap): Unknown Date of Pneumonia Vaccine: Oct 08, 2002 Date of Influenza Vaccine: Mar 17, 2017 Seasonal Allergies Seasonal Allergies: Yes Past Medical History Surgeries: Yes Adenoidectomy, Breast, Cardiac, Coronary Stent, Hysterectomy, Oophorectomy, Tonsillectomy Respiratory: Yes Asthma, Chronic Bronchitis, COPD Currently Using CPAP: No Currently Using BIPAP: Yes Cardiac: Yes Coronary Artery Disease Neurological: No Headaches /Migraines : No Female Reproductive Disorders: Denies 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 1.0oz. 62.147433bk; 24.1 BMI Method:Stated Exam Exam Vital Signs Date Time Temp Pulse Resp B/P (MAP) Pulse Ox O2 Delivery O2 Flow Rate FiO2 01/01/18 11:25 93 Vapotherm 45 01/01/18 11:07 91 Nasal Cannula 5.00 01/01/18 08:00 96.9 114 22 131/81 (98) 97 NIV Bilevel 01/01/18 08:00 97 NIV Bilevel 28.00 01/01/18 07:29 104 22 94 28.00 01/01/18 04:08 89 19 94 28.00 01/01/18 04:00 97.2 111 22 141/93 (109) 94 NIV Bilevel 01/01/18 02:27 109 25 91 28.00 01/01/18 00:20 97.7 114 25 131/84 (100) 93 NIV Bilevel 01/01/18 00:00 81 22 96 28.00 12/31/17 21:54 112 22 94 28.00 12/31/17 20:10 NIV Bilevel 28.00 12/31/17 19:32 118 25 94 28.00 12/31/17 19:05 97.7 115 22 149/84 (105) 95 NIV Bilevel 12/31/17 15:25 98.5 116 23 139/84 (102) 93 NIV Bilevel 12/31/17 14:55 118 24 97 32.00 12/31/17 12:40 116 26 92 32.00 12/31/17 12:00 98.7 116 28 119/69 (86) 94 NIV Bilevel I & O 01/01/18 07:00 Intake Total 4220 ml Output Total 2850 ml Balance 1370 ml Height & Weight Height: 5'3.50" Weight: 138lbs. 1.0oz. 62.122644ox; 24.1 BMI Method:Stated General Appearance: Anxious, Moderate Distress HEENT: PERRL/EOMI, TMs Normal, Other (on bipap, short of breath when this is removed) Respiratory: Chest Non Tender, Wheezing, Other (grunting heard on auscltation) Capillary Refill: Less Than 3 Seconds Gastrointestinal: non tender, soft Neurologic/Psychiatric: Alert, Oriented x3 Skin: Normal Color, Warm/Dry Results Lab Laboratory Tests 12/31/17 05:48 Assessment/Plan Assessment/Plan Acute on chronic respiratory failure Severe Oxygen dependent COPD with AE -Vapotherm -BiPAP PRN - Solumedrol -- increase to Q6 -Cefepime -SVNs Q4 and Q2 PRN -- CHange to Q2 RTC -Add Pulmicort BID Persistent tobacco dependance despite extensive education -Education Anxiety/depression. LEANN GILL DO Jan 01, 2018 11:59
[2018-01-01 15:14] LABS: ABG BASE EXCESS 3.4 MMOL/L (-2.5-2.5); ABG OXYGEN SATURATION 94 % (94-100); ABG PCO2 52 MMHG (35-45); ABG PH 7.36 (7.37-7.43); ABG PO2 70 MMHG (79-93); ABG TCO2 29.9 MMOL/L (21.0-31.0)
[2018-01-01 15:15] LABS: ALLENS TEST POSITIVE; INSPIRED O2 30 LMP 45%; PATIENT TEMP 99.6; VENTILATOR NO
[2018-01-01] MEDS: ENOXAPARIN 40 MG/0.4 ML (LOVENOX) SYR SQ SCH (16:33)
[2018-01-01] MEDS ORDERED: RT-ALBUTEROL/IPRATROPIUM 3 ML (DUONEB) VIAL INH SCH (18:00)
[2018-01-01] MEDS: CATHETER FLUSH 10 ML SYR IV PRN (18:01)
[2018-01-01] MEDS: RT-BUDESONIDE NEBS 0.5 MG/2ML (PULMICORT) AMP INH SCH (18:41)
[2018-01-01] MEDS: MONTELUKAST 10 MG (SINGULAIR) TAB PO SCH (21:13)
[2018-01-02] MEDS: methylPREDNISolone 40 MG/ML (Solu-MEDROL) VIAL IV SCH ×4 (00:14→18:18)
[2018-01-02 00:30] VITALS: BP 137/84
[2018-01-02] MEDS: RT-ALBUTEROL/IPRATROPIUM 3 ML (DUONEB) VIAL INH SCH ×11 (01:42→22:04)
[2018-01-02 04:00] VITALS: BP 174/101
[2018-01-02] MEDS: LORazepam INJ 2 MG/ML (ATIVAN) VIAL IVP PRN ×3 (04:49→16:01)
[2018-01-02] MEDS: VENlafaxine XR 75 MG (EFFEXOR XR) CAP PO SCH (05:58)
[2018-01-02] MEDS: CATHETER FLUSH 10 ML SYR IV SCH ×3 (06:00→20:06)
[2018-01-02] MEDS: RT-BUDESONIDE NEBS 0.5 MG/2ML (PULMICORT) AMP INH SCH ×2 (06:13→19:04)
--- NOTE | 2018-01-02 07:30 | Pulmonary Progress Note ---
Sepsis Event Evaluation Height, Weight, BMI Height: 5'3.50" Weight: 138lbs. 1.0oz. 62.847734ey; 24.1 BMI Method:Stated Exam Exam Vital Signs Date Time Temp Pulse Resp B/P (MAP) Pulse Ox O2 Delivery O2 Flow Rate FiO2 01/02/18 06:15 84 Vapotherm 30.00 45 01/02/18 03:40 104 18 96 28.00 01/02/18 01:42 108 17 98 28.00 01/02/18 00:30 96.8 113 24 137/84 (101) 91 NIV Bilevel 01/01/18 23:49 102 20 93 28.00 01/01/18 21:35 111 24 93 28.00 01/01/18 21:00 153/90 (111) 01/01/18 20:15 97.8 116 22 160/98 (118) 93 Vapotherm 01/01/18 20:04 96 Vapotherm 30.00 45 01/01/18 20:00 NIV Bilevel 28.00 01/01/18 18:45 Vapotherm 30.00 45 01/01/18 18:42 96 Vapotherm 30.00 45 01/01/18 17:51 Vapotherm 30.00 45 01/01/18 16:43 113 29 28.00 01/01/18 15:45 98.2 114 24 130/82 (98) 92 NIV Bilevel 01/01/18 15:25 124 29 28.00 01/01/18 15:10 96 Vapotherm 30.00 45 01/01/18 12:00 99.0 119 24 152/79 (103) 94 Nasal Cannula 01/01/18 11:25 93 Vapotherm 45 01/01/18 11:07 91 Nasal Cannula 5.00 01/01/18 08:00 96.9 114 22 131/81 (98) 97 NIV Bilevel 01/01/18 08:00 97 NIV Bilevel 28.00 I & O 01/02/18 07:00 Intake Total 1920 ml Output Total 2800 ml Balance -880 ml Height & Weight Height: 5'3.50" Weight: 138lbs. 1.0oz. 62.855653uk; 24.1 BMI Method:Stated General Appearance: Anxious, Moderate Distress HEENT: Other (on bipap, short of breath when this is removed) Respiratory: Chest Non Tender, Wheezing, Other (grunting heard on auscltation) Capillary Refill: Less Than 3 Seconds Gastrointestinal: non tender, soft Neurologic/Psychiatric: Alert, Oriented x3 Skin: Normal Color, Warm/Dry Assessment/Plan Assessment/Plan Acute on chronic respiratory failure Severe Oxygen dependent COPD with AE -Vapotherm -BiPAP PRN - [id number] -Cefepime -SVNs Q4 and Q2 PRN -- CHange to Q2 RTC -Add Pulmicort BID Persistent tobacco dependance despite extensive education -Education Anxiety/depression. LEANN GILL DO Jan 02, 2018 07:30
[2018-01-02 08:00] VITALS: BP 152/84
--- NOTE | 2018-01-02 09:11 | Progress Note-Hospitalist ---
FRANK FATIMA MED STUDENT 01/02/18 0911: Subjective HPI/CC On Admission Date Seen by Provider: Jan 02, 2018 Time Seen by Provider: 07:45 Dyspnea, SOB Subjective/Events-last exam Patient is much improved since yesterday Dr. Ken placed her on vapotherm and this is much more comfortable than bipap She appreciates the increased frequency of ativan She had no events overnight urinating and having bowel movements without difficulty not in any pain this morning Focused Exam Respiratory: Chest Non Tender, Wheezing Cardiovascular: Regular Rate, Rhythm, No Gallop, No JVD, No Murmur Skin: normal color, warm/dry Objective Exam Vital Signs Vital Signs Date Time Temp Pulse Resp B/P (MAP) Pulse Ox O2 Delivery O2 Flow Rate FiO2 01/02/18 08:14 89 Vapotherm 30.00 50 01/02/18 04:00 97.7 126 22 174/101 (125) Capillary Refill : Less Than 3 Seconds General Appearance: WD/WN Neck: Normal Inspection Respiratory: Chest Non Tender, Wheezing Cardiovascular: Regular Rate, Rhythm, No Edema, No Murmur Neurologic/Psychiatric: Alert, Oriented x3, Normal Mood/Affect Skin: Normal Color, Warm/Dry Results/Procedures Lab Patient resulted labs reviewed. Assessment/Plan Assessment and Plan Assess & Plan/Chief Complaint cc: dyspnea assessment patient is very anxious unable to breath comfortably, requires bipap plan increase frequency of IV ativan dose consult [place] patient was asking about vapotherm Clinical Quality Measures DVT/VTE Risk/Contraindication: Risk Factor Score Per Nursin RFS Level Per Nursing on Admit: 4+=Very High Risk Score Comment: Lovenox ordered HEMA FISCHER DO 01/02/18 1112: Subjective Subjective/Events-last exam Patient appears to be very end-stage and it really appears that she is an end-of -life patient Will monitor closely Full code maintained Review of Systems Pulmonary: Dyspnea, Cough Objective Exam General Appearance: WD/WN, Chronically ill, Moderate Distress (when she coughs) Respiratory: Crackles, Decreased Breath Sounds, Wheezing Cardiovascular: Regular Rate, Rhythm Neurologic/Psychiatric: Alert, Oriented x3, No Motor/Sensory Deficits, Normal Mood/Affect Assessment/Plan Assessment and Plan Assess & Plan/Chief Complaint End stage COPD Diagnosis/Problems Diagnosis/Problems (1) Poor prognosis Status: Acute (2) End stage chronic obstructive pulmonary disease Status: Acute (3) Acute on chronic respiratory failure with hypoxia and hypercapnia Status: Acute (4) COPD (chronic obstructive pulmonary disease) Status: Chronic Qualifiers: COPD type: unspecified COPD Qualified Codes: J44.9 - Chronic obstructive pulmonary disease, unspecified (5) Tobacco abuse Status: Chronic (6) COPD exacerbation Status: Acute (7) Debility Status: Chronic (8) HTN (hypertension) Status: Chronic Qualifiers: Hypertension type: essential hypertension Qualified Codes: I10 - Essential (primary) hypertension (9) Depression Status: Chronic Qualifiers: Depression Type: unspecified Qualified Codes: F32.9 - Major depressive disorder, single episode, unspecified (10) Coronary artery disease Status: Chronic Qualifiers: Coronary Disease-Associated Artery/Lesion type: [place] artery [place] vs. transplanted heart: [place] heart Associated angina: without angina Qualified Codes: I25.10 - Atherosclerotic heart disease of [place] coronary artery without angina pectoris (11) Anxiety Status: Chronic FRANK FATIMA STUDENT Jan 02, 2018 09:11 HEMA FISCHER DO Jan 02, 2018 11:12
[2018-01-02] MEDS: ISOSORBIDE MONONITRATE 30 MG (IMDUR) TAB PO SCH (09:47)
[2018-01-02] MEDS: ASPIRIN E.C. 81 MG (ECOTRIN) TAB PO SCH (09:47)
[2018-01-02] MEDS: FOLIC ACID 1 MG TAB PO SCH (09:47)
[2018-01-02] MEDS: FERROUS SULF 325 MG (IRON) TAB PO SCH ×2 (09:47→20:05)
[2018-01-02] MEDS: MAGNESIUM OXIDE (MAG-OX)400 MG TAB PO SCH (09:47)
[2018-01-02] MEDS: LORATADINE (CLARITIN) 10 MG TAB PO SCH (09:47)
[2018-01-02] MEDS: LORazepam 1 MG (ATIVAN) TAB PO SCH ×2 (09:47→20:05)
[2018-01-02] MEDS: NICOTINE PATCH REMOVAL TP SCH (09:51)
[2018-01-02] MEDS: CEFEPIME 2 GM/NS 50 ML IVPB IV SCH ×4 (10:58→23:58)
[2018-01-02 12:00] VITALS: BP 158/66
[2018-01-02 15:45] VITALS: BP 140/52
[2018-01-02] MEDS: ENOXAPARIN 40 MG/0.4 ML (LOVENOX) SYR SQ SCH (16:05)
[2018-01-02 19:50] VITALS: BP 144/96
[2018-01-02] MEDS: MONTELUKAST 10 MG (SINGULAIR) TAB PO SCH (20:05)
[2018-01-03] VITALS: BP 156/83
[2018-01-03] MEDS: methylPREDNISolone 40 MG/ML (Solu-MEDROL) VIAL IV SCH ×5 (00:01→23:49)
[2018-01-03] MEDS: RT-ALBUTEROL/IPRATROPIUM 3 ML (DUONEB) VIAL INH SCH ×7 (00:40→22:10)
[2018-01-03 04:00] VITALS: BP 131/85
[2018-01-03] MEDS: VENlafaxine XR 75 MG (EFFEXOR XR) CAP PO SCH (05:42)
[2018-01-03] MEDS: CATHETER FLUSH 10 ML SYR IV SCH ×3 (05:42→20:45)
--- NOTE | 2018-01-03 06:33 | Pulmonary Progress Note ---
Sepsis Event Evaluation Height, Weight, BMI Height: 5'3.50" Weight: 138lbs. 1.0oz. 62.012432tu; 24.1 BMI Method:Stated Exam Exam Vital Signs Date Time Temp Pulse Resp B/P (MAP) Pulse Ox O2 Delivery O2 Flow Rate FiO2 01/03/18 04:12 94 Vapotherm 30.00 55 01/03/18 04:00 97.3 98 18 131/85 (100) 91 Vapotherm 01/03/18 02:07 97 Vapotherm 30.00 55 01/03/18 00:40 103 19 96 30.00 01/03/18 00:00 97.9 102 16 156/83 (107) 98 NIV Bilevel 60.00 01/02/18 22:04 104 27 99 30.00 01/02/18 20:16 Vapotherm 33.00 50 01/02/18 19:59 98 Vapotherm 30.00 60 01/02/18 19:50 97.4 99 20 144/96 (112) 100 NIV Bilevel 60.00 01/02/18 19:04 90 Vapotherm 30.00 55 01/02/18 16:10 88 Vapotherm 30.00 55 01/02/18 15:45 98.5 123 18 140/52 (81) 89 01/02/18 14:50 120 85 55 01/02/18 14:06 85 Vapotherm 30.00 55 01/02/18 12:19 88 Vapotherm 30.00 50 01/02/18 12:00 98.2 122 22 158/66 (96) 91 Vapotherm 01/02/18 10:27 87 Vapotherm 30.00 50 01/02/18 08:14 89 Vapotherm 30.00 50 01/02/18 08:00 Vapotherm 30.00 01/02/18 08:00 98.2 122 22 152/84 (106) 91 Vapotherm I & O 01/03/18 07:00 Intake Total 3020 ml Output Total 500 ml Balance 2520 ml Height & Weight Height: 5'3.50" Weight: 138lbs. 1.0oz. 62.793793cz; 24.1 BMI Method:Stated General Appearance: WD/WN, Chronically ill, Moderate Distress (when she coughs) HEENT: Other (on bipap, short of breath when this is removed) Neck: Normal Inspection Respiratory: Crackles, Decreased Breath Sounds, Wheezing Cardiovascular: Regular Rate, Rhythm Capillary Refill: Less Than 3 Seconds Gastrointestinal: non tender, soft Neurologic/Psychiatric: Alert, Oriented x3, No Motor/Sensory Deficits, Normal Mood/Affect Skin: Normal Color, Warm/Dry Assessment/Plan Assessment/Plan Acute on chronic respiratory failure -PT will qualify for vent to mask unless she decides to go with hospice. Severe Oxygen dependent COPD with AE -Vapotherm -BiPAP PRN - [id number] -Cefepime -SVNs Q4 and Q2 PRN -- CHange to Q2 RTC -Pulmicort BID Persistent tobacco dependance despite extensive education -Education Anxiety/depression. LEANN GILL DO Jan 03, 2018 06:33
[2018-01-03] MEDS: RT-BUDESONIDE NEBS 0.5 MG/2ML (PULMICORT) AMP INH SCH ×2 (07:29→19:36)
--- NOTE | 2018-01-03 07:49 | Progress Note-Hospitalist ---
FRANK FATIMA MED STUDENT 01/03/18 0749: Subjective HPI/CC On Admission Date Seen by Provider: Jan 03, 2018 Time Seen by Provider: 07:00 Dyspnea, SOB Subjective/Events-last exam No overnight events patient reports some improvement in symptoms in no acute pain urinating frequently without difficulty no concerns with BM, one since yesterday Dr. Ken thinks patient may be able to go home Monday Objective Exam Vital Signs Vital Signs Date Time Temp Pulse Resp B/P (MAP) Pulse Ox O2 Delivery O2 Flow Rate FiO2 01/03/18 07:36 99 Vapotherm 30.00 35 01/03/18 04:00 97.3 98 18 131/85 (100) Capillary Refill : Less Than 3 Seconds General Appearance: No Apparent Distress, WD/WN, Chronically ill Neck: Normal Inspection, Non Tender, Supple Respiratory: Chest Non Tender, Lungs Clear, Accessory Muscle Use, Decreased Breath Sounds, Other (increased work of breathing) Cardiovascular: Regular Rate, Rhythm, No Edema, No Gallop, No Murmur Gastrointestinal: Non Tender Extremity: Normal Inspection, Normal Range of Motion, Non Tender Neurologic/Psychiatric: Alert, Oriented x3, No Motor/Sensory Deficits, Normal Mood/Affect Skin: Normal Color, Warm/Dry Lymphatic: No Adenopathy Results/Procedures Lab Patient resulted labs reviewed. Assessment/Plan Assessment and Plan Assess & Plan/Chief Complaint cc: dyspnea assessment patient appears about the same as yesterday increased work of breathing, on vapotherm states that she feels better today plan continue on vapotherm disposition will consider discharge to hospice [facility] and outpatient follow up with Dr. Ken Clinical Quality Measures DVT/VTE Risk/Contraindication: Risk Factor Score Per Nursin RFS Level Per Nursing on Admit: 4+=Very High Risk Score Comment: Lovenox ordered LYNDON FISCHERFabiano DUARTE 01/03/18 1009: Subjective Subjective/Events-last exam Spoke to her about Hospice/Palliative care Pt meets criteria easily. Review of Systems Pulmonary: Dyspnea Objective Exam General Appearance: No Apparent Distress, WD/WN Respiratory: Accessory Muscle Use, Decreased Breath Sounds, Wheezing, Other ( increased work of breathing) Neurologic/Psychiatric: Alert, Oriented x3, No Motor/Sensory Deficits, Normal Mood/Affect Assessment/Plan Assessment and Plan Assess & Plan/Chief Complaint Needs Hospice Supervisory Addendum Participated in pt care: history Personally performed: exam E&M service: agree Results interpretation: agree Diagnosis/Problems Diagnosis/Problems (1) Acute on chronic respiratory failure with hypoxia and hypercapnia Status: Acute (2) COPD exacerbation Status: Acute (3) Tobacco abuse Status: Chronic (4) HTN (hypertension) Status: Chronic Qualifiers: Hypertension type: essential hypertension Qualified Codes: I10 - Essential (primary) hypertension (5) Debility Status: Chronic (6) Coronary artery disease Status: Chronic Qualifiers: Coronary Disease-Associated Artery/Lesion type: [place] artery [place] vs. transplanted heart: [place] heart Associated angina: without angina Qualified Codes: I25.10 - Atherosclerotic heart disease of [place] coronary artery without angina pectoris (7) Poor prognosis Status: Acute (8) End stage chronic obstructive pulmonary disease Status: Acute FRANK FATIMA MED STUDENT Jan 03, 2018 07:49 HEMA FISCHER DO Jan 03, 2018 10:09
[2018-01-03 08:00] VITALS: BP 141/93
[2018-01-03] MEDS: ASPIRIN E.C. 81 MG (ECOTRIN) TAB PO SCH (08:13)
[2018-01-03] MEDS: MAGNESIUM OXIDE (MAG-OX)400 MG TAB PO SCH (08:13)
[2018-01-03] MEDS: LORATADINE (CLARITIN) 10 MG TAB PO SCH (08:13)
[2018-01-03] MEDS: FERROUS SULF 325 MG (IRON) TAB PO SCH ×2 (08:13→20:07)
[2018-01-03] MEDS: FOLIC ACID 1 MG TAB PO SCH (08:13)
[2018-01-03] MEDS: LORazepam 1 MG (ATIVAN) TAB PO SCH ×2 (08:13→20:45)
[2018-01-03] MEDS: NICOTINE PATCH REMOVAL TP SCH (08:14)
[2018-01-03] MEDS: ISOSORBIDE MONONITRATE 30 MG (IMDUR) TAB PO SCH (08:16)
[2018-01-03] MEDS: CEFEPIME 2 GM/NS 50 ML IVPB IV SCH ×4 (11:13→23:26)
[2018-01-03 12:01] VITALS: BP 131/71
[2018-01-03 15:55] VITALS: BP 150/90
[2018-01-03] MEDS: ENOXAPARIN 40 MG/0.4 ML (LOVENOX) SYR SQ SCH (17:35)
[2018-01-03] MEDS: LORazepam INJ 2 MG/ML (ATIVAN) VIAL IVP PRN ×2 (17:40→23:18)
[2018-01-03 19:50] VITALS: BP 153/78
[2018-01-03] MEDS: MONTELUKAST 10 MG (SINGULAIR) TAB PO SCH (20:45)
[2018-01-04 00:01] VITALS: BP 169/88
[2018-01-04] MEDS: RT-ALBUTEROL/IPRATROPIUM 3 ML (DUONEB) VIAL INH SCH ×6 (02:33→22:23)
[2018-01-04 04:09] VITALS: BP 137/88
[2018-01-04] MEDS: methylPREDNISolone 40 MG/ML (Solu-MEDROL) VIAL IV SCH (06:08)
[2018-01-04] MEDS: VENlafaxine XR 75 MG (EFFEXOR XR) CAP PO SCH (06:08)
[2018-01-04] MEDS: CATHETER FLUSH 10 ML SYR IV SCH ×3 (06:33→22:09)
[2018-01-04] MEDS: RT-BUDESONIDE NEBS 0.5 MG/2ML (PULMICORT) AMP INH SCH ×2 (06:57→19:09)
--- NOTE | 2018-01-04 07:37 | Pulmonary Progress Note ---
Subjective Time Seen by a Provider: 07:35 Sepsis Event Evaluation Height, Weight, BMI Height: 5'3.50" Weight: 138lbs. 1.0oz. 62.196966it; 24.1 BMI Method:Stated Exam Exam Vital Signs Date Time Temp Pulse Resp B/P (MAP) Pulse Ox O2 Delivery O2 Flow Rate FiO2 01/04/18 07:12 97 10.00 35 01/04/18 06:55 97 Vapotherm 12.00 35 01/04/18 04:09 97.4 93 17 137/88 (104) 92 NIV Bilevel 01/04/18 02:33 95 Vapotherm 12.00 35 01/04/18 00:01 97.9 108 20 169/88 (115) 95 NIV Bilevel 01/03/18 22:11 94 Vapotherm 12.00 35 01/03/18 20:00 Vapotherm 12.00 35 01/03/18 19:50 97.4 99 22 153/78 (103) 95 Vapotherm 35.00 01/03/18 19:36 95 Vapotherm 12.00 35 01/03/18 18:48 95 Vapotherm 12.00 35 01/03/18 15:55 98.0 111 24 150/90 (110) 92 Vapotherm 35.00 01/03/18 14:41 95 Vapotherm 12.00 35 01/03/18 12:01 96.6 107 22 131/71 (91) 92 Vapotherm 35.00 22.00 01/03/18 10:37 94 Vapotherm 12.00 35 01/03/18 08:00 Vapotherm 17.00 01/03/18 08:00 97.5 101 22 141/93 (109) 97 Vapotherm 35.00 22.00 01/03/18 07:36 99 Vapotherm 30.00 35 I & O 01/04/18 07:00 Intake Total 1250 ml Output Total 1500 ml Balance -250 ml Height & Weight Height: 5'3.50" Weight: 138lbs. 1.0oz. 62.851673eu; 24.1 BMI Method:Stated General Appearance: No Apparent Distress, WD/WN HEENT: Other (on bipap, short of breath when this is removed) Neck: Normal Inspection Respiratory: Accessory Muscle Use, Decreased Breath Sounds, Wheezing, Other ( increased work of breathing) Cardiovascular: Regular Rate, Rhythm Capillary Refill: Less Than 3 Seconds Gastrointestinal: non tender, soft Extremity: Normal Inspection, Normal Range of Motion, Non Tender Neurologic/Psychiatric: Alert, Oriented x3, No Motor/Sensory Deficits, Normal Mood/Affect Skin: Normal Color, Warm/Dry Lymphatic: No Adenopathy Assessment/Plan Assessment/Plan Acute on chronic respiratory failure -PT will qualify for vent to mask unless she decides to go with hospice. Severe Oxygen dependent COPD with AE -Vapotherm-- change to NC -BiPAP PRN - [id number] -- change to prednisone -Cefepime -SVNs Q4 and Q2 PRN -- CHange to Q2 RTC -Pulmicort BID Persistent tobacco dependance despite extensive education -Education Anxiety/depression. LEANN GILL DO Jan 04, 2018 07:37
[2018-01-04 08:00] VITALS: BP 160/74
--- NOTE | 2018-01-04 08:32 | Progress Note-Hospitalist ---
FRANK FATIMA MED STUDENT 01/04/18 0832: Subjective HPI/CC On Admission Date Seen by Provider: Jan 04, 2018 Time Seen by Provider: 07:30 Dyspnea, SOB Subjective/Events-last exam patient appears comfortable today sitting up in bed no acute events overnight urinating frequently without difficulty having frequent BM reports no pain vapotherm was decreased in preparation to switch back to nasal canula per dr. Ken discharge possible tomorrow Objective Exam Vital Signs Vital Signs Date Time Temp Pulse Resp B/P (MAP) Pulse Ox O2 Delivery O2 Flow Rate FiO2 01/04/18 08:00 97.3 81 14 160/74 (102) 92 NIV Bilevel 01/04/18 07:12 10.00 35 Capillary Refill : Less Than 3 Seconds General Appearance: No Apparent Distress, Chronically ill HEENT: Normal ENT Inspection Neck: Full Range of Motion, Normal Inspection, Non Tender, Supple Respiratory: Chest Non Tender, Accessory Muscle Use, Decreased Breath Sounds Cardiovascular: Regular Rate, Rhythm, No Edema, No Gallop, No JVD, No Murmur, Normal Peripheral Pulses Gastrointestinal: Non Tender, Soft Back: Normal Inspection, No Vertebral Tenderness Extremity: Normal Inspection, Normal Range of Motion, Non Tender Neurologic/Psychiatric: Alert, Oriented x3, No Motor/Sensory Deficits, Normal Mood/Affect Skin: Normal Color, Warm/Dry Lymphatic: No Adenopathy Results/Procedures Lab Patient resulted labs reviewed. Assessment/Plan Assessment and Plan Assess & Plan/Chief Complaint cc: dyspnea assessment patient appears about the same as yesterday vapotherm decreased in preparation to switch back to nasal canula prior to discharge plan try nasal canula in place of vapotherm possible discharge tomorrow close follow up with Dr. Ken Clinical Quality Measures DVT/VTE Risk/Contraindication: Risk Factor Score Per Nursin RFS Level Per Nursing on Admit: 4+=Very High Risk Score Comment: Lovenox ordered HEMA FISCHER DO 01/04/18 1118: Subjective Subjective/Events-last exam Talked to patient with Dr Ken about hospice Review of Systems Pulmonary: Dyspnea Objective Exam General Appearance: No Apparent Distress, WD/WN, Chronically ill Neck: Full Range of Motion, Normal Inspection, Non Tender, Supple, Carotid Bruit Respiratory: Chest Non Tender, Accessory Muscle Use, Crackles, Decreased Breath Sounds Cardiovascular: Regular Rate, Rhythm, No Edema, No Gallop, No JVD, No Murmur, Normal Peripheral Pulses Neurologic/Psychiatric: Alert, Oriented x3, No Motor/Sensory Deficits, Normal Mood/Affect Assessment/Plan Assessment and Plan Assess & Plan/Chief Complaint Hospice candidate Diagnosis/Problems Diagnosis/Problems (1) Acute on chronic respiratory failure with hypoxia and hypercapnia Status: Acute (2) COPD (chronic obstructive pulmonary disease) Status: Chronic Qualifiers: COPD type: unspecified COPD Qualified Codes: J44.9 - Chronic obstructive pulmonary disease, unspecified (3) Tobacco abuse Status: Chronic (4) COPD exacerbation Status: Acute (5) Debility Status: Chronic (6) HTN (hypertension) Status: Chronic Qualifiers: Hypertension type: essential hypertension Qualified Codes: I10 - Essential (primary) hypertension (7) Coronary artery disease Status: Chronic Qualifiers: Coronary Disease-Associated Artery/Lesion type: [place] artery [place] vs. transplanted heart: [place] heart Associated angina: without angina Qualified Codes: I25.10 - Atherosclerotic heart disease of [place] coronary artery without angina pectoris (8) Anxiety Status: Chronic FRANK FATIMA MED STUDENT Jan 04, 2018 08:32 HEMA FISCHER DO Jan 04, 2018 11:18
[2018-01-04] MEDS: ISOSORBIDE MONONITRATE 30 MG (IMDUR) TAB PO SCH (09:59)
[2018-01-04] MEDS: FOLIC ACID 1 MG TAB PO SCH (09:59)
[2018-01-04] MEDS: LORATADINE (CLARITIN) 10 MG TAB PO SCH (10:00)
[2018-01-04] MEDS: LORazepam 1 MG (ATIVAN) TAB PO SCH ×2 (10:00→20:08)
[2018-01-04] MEDS: predniSONE 10 MG TAB PO SCH (10:00)
[2018-01-04] MEDS: CEFDINIR 300 MG (OMNICEF) CAP PO SCH ×2 (10:00→20:08)
[2018-01-04] MEDS: ASPIRIN E.C. 81 MG (ECOTRIN) TAB PO SCH (10:00)
[2018-01-04] MEDS: FERROUS SULF 325 MG (IRON) TAB PO SCH ×2 (10:00→20:08)
[2018-01-04] MEDS: MAGNESIUM OXIDE (MAG-OX)400 MG TAB PO SCH (10:00)
[2018-01-04] MEDS: NICOTINE PATCH REMOVAL TP SCH (10:01)
[2018-01-04] MEDS: ENOXAPARIN 40 MG/0.4 ML (LOVENOX) SYR SQ SCH (15:53)
[2018-01-04 16:39] VITALS: BP 100/93
[2018-01-04] MEDS: LORazepam INJ 2 MG/ML (ATIVAN) VIAL IVP PRN (18:18)
[2018-01-04] MEDS: MONTELUKAST 10 MG (SINGULAIR) TAB PO SCH (20:08)
[2018-01-04 20:36] VITALS: BP 105/56
[2018-01-05 00:06] VITALS: BP 168/82
[2018-01-05] MEDS: RT-ALBUTEROL/IPRATROPIUM 3 ML (DUONEB) VIAL INH SCH ×3 (02:39→10:56)
[2018-01-05 04:42] VITALS: BP 149/80
[2018-01-05] MEDS: VENlafaxine XR 75 MG (EFFEXOR XR) CAP PO SCH (06:07)
[2018-01-05] MEDS: CATHETER FLUSH 10 ML SYR IV SCH (06:10)
[2018-01-05 08:00] VITALS: BP 158/74
--- NOTE | 2018-01-05 08:15 | Pulmonary Progress Note ---
Sepsis Event Evaluation Height, Weight, BMI Height: 5'3.50" Weight: 138lbs. 1.0oz. 62.569822bp; 24.1 BMI Method:Stated Exam Exam Vital Signs Date Time Temp Pulse Resp B/P (MAP) Pulse Ox O2 Delivery O2 Flow Rate FiO2 01/05/18 06:24 98 High Flow N/C 3.00 01/05/18 04:42 97.8 110 20 149/80 (103) 98 NIV Bilevel 01/05/18 02:41 93 High Flow N/C 3.00 01/05/18 00:06 97.5 103 20 168/82 (110) 97 NIV Bilevel 01/04/18 22:24 98 High Flow N/C 3.00 01/04/18 20:36 96.8 73 16 105/56 (72) 98 NIV Bilevel 01/04/18 20:00 98 Nasal Cannula 3.00 01/04/18 19:11 96 High Flow N/C 3.00 01/04/18 16:39 96.0 100 20 100/93 (95) 94 NIV Bilevel 01/04/18 15:20 97 High Flow N/C 5.00 01/04/18 11:50 98 High Flow N/C 10.00 I & O 01/05/18 07:00 Intake Total 4300 ml Output Total 2100 ml Balance 2200 ml Height & Weight Height: 5'3.50" Weight: 138lbs. 1.0oz. 62.639972be; 24.1 BMI Method:Stated General Appearance: No Apparent Distress, WD/WN, Chronically ill HEENT: Normal ENT Inspection Neck: Full Range of Motion, Normal Inspection, Non Tender, Supple, Carotid Bruit Respiratory: Chest Non Tender, Accessory Muscle Use, Crackles, Decreased Breath Sounds Cardiovascular: Regular Rate, Rhythm, No Edema, No Gallop, No JVD, No Murmur, Normal Peripheral Pulses Capillary Refill: Less Than 3 Seconds Gastrointestinal: non tender, soft Extremity: Normal Inspection, Normal Range of Motion, Non Tender Neurologic/Psychiatric: Alert, Oriented x3, No Motor/Sensory Deficits, Normal Mood/Affect Skin: Normal Color, Warm/Dry Lymphatic: No Adenopathy Assessment/Plan Assessment/Plan Acute on chronic respiratory failure -PT will qualify for vent to mask unless she decides to go with hospice. Severe Oxygen dependent COPD with AE -BiPAP PRN - prednisone -Cefepime -SVNs Q4 and Q2 PRN -- CHange to Q2 RTC -Pulmicort BID Persistent tobacco dependance despite extensive education -Education Anxiety/depression. LEANN GILL DO Jan 05, 2018 8:14 am
[2018-01-05] MEDS: LORATADINE (CLARITIN) 10 MG TAB PO SCH (08:49)
[2018-01-05] MEDS: FOLIC ACID 1 MG TAB PO SCH (08:49)
[2018-01-05] MEDS: ASPIRIN E.C. 81 MG (ECOTRIN) TAB PO SCH (08:49)
[2018-01-05] MEDS: FERROUS SULF 325 MG (IRON) TAB PO SCH (08:50)
[2018-01-05] MEDS: predniSONE 10 MG TAB PO SCH ×3 (08:50→08:52)
[2018-01-05] MEDS: CEFDINIR 300 MG (OMNICEF) CAP PO SCH (08:50)
[2018-01-05] MEDS: LORazepam 1 MG (ATIVAN) TAB PO SCH (08:50)
[2018-01-05] MEDS: ISOSORBIDE MONONITRATE 30 MG (IMDUR) TAB PO SCH (08:50)
[2018-01-05] MEDS: MAGNESIUM OXIDE (MAG-OX)400 MG TAB PO SCH (08:50)
[2018-01-05] MEDS: NICOTINE PATCH REMOVAL TP SCH (09:22)
[2018-01-05] MEDS ORDERED: LORA1TAB PO (09:43)
[2018-01-05] MEDS ORDERED: PRED10TA22 PO (09:43)
--- NOTE | 2018-01-05 10:35 | Discharge Summary-Hospitalist ---
FRANK FATIMA MED STUDENT 01/05/18 1035: Diagnosis/Chief Complaint Date of Admission Dec 29, 2017 at 23:55 Date of Discharge Discharge Date: Jan 05, 2018 Discharge Diagnosis (1) Acute on chronic respiratory failure with hypoxia and hypercapnia Status: Acute (2) COPD (chronic obstructive pulmonary disease) Status: Chronic (3) Tobacco abuse Status: Chronic (4) COPD exacerbation Status: Acute (5) Debility Status: Chronic (6) HTN (hypertension) Status: Chronic (7) Coronary artery disease Status: Chronic (8) Anxiety Status: Chronic Discharge Summary Discharge Physical Exam Allergies: Coded Allergies: tramadol (Unverified Allergy, Mild, 12/29/17) Penicillins (Verified Allergy, Unknown, 07/08/13) Sulfa (Sulfonamide Antibiotics) (Verified Allergy, Unknown, 07/08/13) sumatriptan (Verified Allergy, Unknown, 07/08/13) Vitals & I&Os Vital Signs Date Time Temp Pulse Resp B/P (MAP) Pulse Ox O2 Delivery O2 Flow Rate FiO2 01/05/18 08:00 96 Nasal Cannula 3.00 01/05/18 08:00 98.5 106 22 158/74 (102) 01/04/18 07:12 35 General Appearance: No Apparent Distress, WD/WN, Chronically ill HEENT: Normal ENT Inspection, Pharynx Normal Respiratory: Chest Non Tender, Accessory Muscle Use, Decreased Breath Sounds, Respiratory Distress Cardiovascular: Regular Rate, Rhythm, No Edema, No Gallop, No JVD, No Murmur, Normal Peripheral Pulses Gastrointestinal: Non Tender, Soft Extremity: Normal Inspection, Normal Range of Motion, Non Tender, No Calf Tenderness, No Pedal Edema Skin: Normal Color, Warm/Dry Neurologic/Psychiatric: Alert, Oriented x3, No Motor/Sensory Deficits, Normal Mood/Affect Hospital Course Patient is a 67 yo female w/ hx of COPD who presented to the ER w/ worsening dyspnea despite out patient treatment with Zithromax, prednisone and nebs. She was placed on bipap and cefdinir and continued nebulizer treatments. Over the hospital course, she continued to have trouble maintaining oxygenation and was placed on vapotherm during the day and bipap for sleeping. As her respiratory distress improved, she was titrated back to 3L oxygen via nasal canula. After much discussion patient and family opted for discharge to home with [facility] board to help with management of COPD. Patient states she is very glad to be going home. Dr. Ken will follow up on an outpatient basis. Labs (last 24 hrs) Microbiology 12/29/17 Blood Culture - Final, Complete No growth Patient resulted labs reviewed. Discussion & Recommendations Discharge Planning: <30 minutes discharge planning Discharge Home Medications: Active Scripts Active Prednisone 10 Mg Tab.ds.pk 10 Mg PO DAILY Take 6 tabs(60mg)daily,decrease by 1 tab(10MG)daily. Lorazepam 1 Mg Tablet 1 Mg PO BID Reported Desvenlafaxine ER (Desvenlafaxine) 100 Mg Tab.er.24h 100 Mg PO DAILY Vitamin C (Ascorbate Calcium) 500 Mg Tablet 500 Mg PO DAILY Aspir 81 (Aspirin) 81 Mg Tablet.dr 81 Mg PO DAILY Isosorbide Mononitrate ER (Isosorbide Mononitrate) 30 Mg Tab.er.24h 30 Mg PO DAILY Ventolin Hfa (Albuterol Sulfate) 18 Gm Hfa.aer.ad 2 Puff INH Q4H PRN Albuterol Sulfate 2.5 Mg/3 Ml Vial.neb 2.5 Mg NEB Q4H PRN Iprat-Albut 0.5-3(2.5) mg/3 ml (Ipratropium/Albuterol Sulfate) 3 Ml Ampul.neb 3 Ml NEB BID Magnesium (Magnesium Oxide) 250 Mg Tablet 500 Mg PO DAILY TAKE 2 (250MG) TABLETS ONCE DAILY Cetirizine HCl 10 Mg Tablet 10 Mg PO DAILY Montelukast Sodium 10 Mg Tablet 10 Mg PO HS Iron (Ferrous Sulfate) 325 Mg Tablet 325 Mg PO BID Folic Acid 0.4 Mg Tablet 0.4 Mg PO DAILY Instructions to patient/family Please see electronic discharge instructions given to patient. Clinical Quality Measures DVT/VTE Risk/Contraindication: Risk Factor Score Per Nursin RFS Level Per Nursing on Admit: 4+=Very High Risk Score Comment: HEMA Fong DO 01/05/18 1055: Diagnosis/Chief Complaint Discharge Diagnosis (1) Acute on chronic respiratory failure with hypoxia and hypercapnia Status: Acute (2) Chronic respiratory failure with hypoxia Status: Chronic (3) Tobacco abuse Status: Chronic (4) COPD exacerbation Status: Acute (5) Anxiety Status: Chronic (6) Coronary artery disease Status: Chronic Discharge Summary Discharge Physical Exam Allergies: Coded Allergies: tramadol (Unverified Allergy, Mild, 12/29/17) Penicillins (Verified Allergy, Unknown, 07/08/13) Sulfa (Sulfonamide Antibiotics) (Verified Allergy, Unknown, 07/08/13) sumatriptan (Verified Allergy, Unknown, 07/08/13) General Appearance: No Apparent Distress, WD/WN, Chronically ill HEENT: PERRL/EOMI, Normal ENT Inspection, Pharynx Normal Respiratory: Accessory Muscle Use, Decreased Breath Sounds, Respiratory Distress Cardiovascular: Regular Rate, Rhythm, No Edema, No Gallop, No JVD, No Murmur, Normal Peripheral Pulses Neurologic/Psychiatric: Alert, Oriented x3, No Motor/Sensory Deficits, Normal Mood/Affect Hospital Course I personally have seen and evaluated the patient and performed the physical exam. I agree with the documented assessment and plan. Discussion & Recommendations Discharge Planning: <30 minutes discharge planning Problem Qualifiers (1) COPD (chronic obstructive pulmonary disease): COPD type: unspecified COPD Qualified Codes: J44.9 - Chronic obstructive pulmonary disease, unspecified (2) HTN (hypertension): Hypertension type: essential hypertension Qualified Codes: I10 - Essential ( primary) hypertension (3) Coronary artery disease: Coronary Disease-Associated Artery/Lesion type: [place] artery [place] vs. transplanted heart: [place] heart Associated angina: without angina Qualified Codes: I25.10 - Atherosclerotic heart disease of [place] coronary artery without angina pectoris FRANK FATIMA MED STUDENT Jan 05, 2018 10:35 HEMA FISCHER DO Jan 05, 2018 10:55
[2018-01-05] MEDS: LORazepam INJ 2 MG/ML (ATIVAN) VIAL IVP PRN (10:51)
== END 2018-01-05 11:27 | disposition hospice, home (50) | DRG 189 ==
LOC: EDUNIT# 22:33 → ER 22:34 → 4TH 23:55
PROVIDERS: ADMIT Family Medicine; ATTEND Family Medicine
DX: J96.21 Acute and chronic respiratory failure with hypoxia (principal); J96.22 Acute and chronic respiratory failure with hypercapnia; J43.9 Emphysema, unspecified; F17.210 Nicotine dependence, cigarettes, uncomplicated; Q61.3 Polycystic kidney, unspecified; I25.10 Atherosclerotic heart disease of native coronary artery without angina pectoris; K58.0 Irritable bowel syndrome with diarrhea; R41.3 Other amnesia; F32.9 Major depressive disorder, single episode, unspecified; D50.9 Iron deficiency anemia, unspecified; I10 Essential (primary) hypertension; G25.0 Essential tremor; J30.2 Other seasonal allergic rhinitis; G43.909 Migraine, unspecified, not intractable, without status migrainosus; K57.90 Diverticulosis of intestine, part unspecified, without perforation or abscess without bleeding; M19.91 Primary osteoarthritis, unspecified site; F41.9 Anxiety disorder, unspecified; L30.9 Dermatitis, unspecified; K21.9 Gastro-esophageal reflux disease without esophagitis; D72.829 Elevated white blood cell count, unspecified; R53.81 Other malaise; T38.0X5A Adverse effect of glucocorticoids and synthetic analogues, initial encounter; Z99.81 Dependence on supplemental oxygen; Z95.5 Presence of coronary angioplasty implant and graft
CPT/HCPCS: 36415; 36600; 71045; 71046; 80048; 80053; 82805; 83605; 84484; 85007; 85025; 85027; 86141; 87040; 87070; 87205; 94640; 94660; 94760; 96361; 96365; 96375